=== PATIENT | female | born 1960 | race Caucasian/White ===

== ENCOUNTER → 2017-04-28 | Outpatient (CLI) | payer BC ==
--- NOTE | 2017-04-28 19:32 | CT ---
EXAMINATION TYPE: CT brain wo con DATE OF EXAM: 04/28/2017 COMPARISON: NONE HISTORY: Headaches with Right sided facial numbness and nausea. No known injury CT DLP: 1159 mGycm. Automated exposure control for dose reduction was used. FINDINGS: There is no acute intracranial hemorrhage, mass effect, or midline shift identified. The v entricles and sulci are within normal limits in size. The globes are intact and the visualized sinus es are clear. IMPRESSION: NO ACUTE INTRACRANIAL HEMORRHAGE, MASS EFFECT, OR MIDLINE SHIFT IS SEEN.
== END | disposition home or self-care (01) ==
LOC: RADCTMAIN 18:49
PROVIDERS: ATTEND Family Medicine
DX: G43.909 Migraine, unspecified, not intractable, without status migrainosus (principal)
CPT/HCPCS: 70450

== ENCOUNTER → 2017-06-09 | Outpatient (CLI) | payer BC ==
[2017-06-09 17:43] LABS: ALT 31 U/L (9-52); AST 21 U/L (14-36); Alkaline Phosphatase 78 U/L (38-126); Anion Gap 10 mmol/L; Blood Urea Nitrogen 17 mg/dL (7-17); Calcium 9.5 mg/dL (8.4-10.2); Carbon Dioxide 25 mmol/L (22-30); Chloride 107 mmol/L (98-107); Glucose 112 mg/dL (74-99); Non-African American GFR(MDRD) 53 (>60 ml/min/1.73 sqM); Potassium 3.9 mmol/L (3.5-5.1); Sodium 142 mmol/L (137-145); Total Bilirubin 0.2 mg/dL (0.2-1.3); Total Protein 6.7 g/dL (6.3-8.2)
[2017-06-16 07:31] LABS: Mis test requested (Blood) MuSK Autoantibody
== END | disposition home or self-care (01) ==
LOC: LABWHC1 16:52
PROVIDERS: ATTEND Psychiatry & Neurology Pain Medicine
DX: N18.3 Chronic kidney disease, stage 3 (moderate) (principal); G70.00 Myasthenia gravis without (acute) exacerbation
CPT/HCPCS: 36415; 80053; 83516; 83519

== ENCOUNTER → 2017-06-11 | Outpatient (CLI) | payer BC ==
--- NOTE | 2017-06-11 16:42 | MR ---
MRI CERVICAL SPINE: CLINICAL HISTORY: Myasthenia Gravis and Donte syndrome per order. Headache with neck pain and blurre d and double vision per patient. TECHNIQUE: Multiplanar, multisequence imaging of the cervical spine is performed without IV contrast. COMPARISON: None. FINDINGS: Sagittal images of the cervical spine show the craniocervical junction to appear within nor mal limits. The cervical and upper thoracic spinal cord is normal in course, caliber, and signal. V ertebral alignment is anatomic. There is mild disc space narrowing C6-C7 level with posterior disc he rniation effacing anterior thecal sac on sagittal images. The vertebral body and intravertebral disk heights are otherwise normal. The bone marrow signal intensity is within normal limits. No significa nt spurring is seen. Axial images show the C2-C3 and C3-C4 levels to appear within normal limits. Axial images at C4-C5 level show broad-based central disc protrusion minimally effacing anterior thec al sac, bilateral neural foramina are mildly narrowed. Axial images at C5-C6 level are within normal limits. Axial images at C6-C7 level show broad-based left paracentral disc protrusion effacing anterolateral thecal sac and causing asymmetric moderate to advanced left-sided neural foraminal narrowing. Right-s ided neural foramen is patent near axial image 15. Axial images at C7-T1 level are felt within normal limits. Thyroid gland is not well seen and suspected atrophic in appearance or small in size. Correlate clini liz. Incidental note is made of bovine type arch seen on coronal images IMPRESSION: Prominent disc herniation C6-C7 level effacing anterolateral thecal sac and causes moder ate to severe left-sided neural foraminal narrowing.
--- NOTE | 2017-06-11 16:48 | MR ---
EXAMINATION TYPE: MR angio head wo and neck wo/w con DATE OF EXAM: 06/11/2017 COMPARISON: NONE HISTORY: Mysanthia Gravis and Donte syndrome per order. Migraine headaches and dizziness per patient . TECHNIQUE: Time of flight images focusing on the [place] were performed without contrast.. 2-D and 3-D postprocessing imaging is performed. Multiplanar, multisequence imaging of the neck focus ing on carotid system is performed without and with IV contrast. Patient is injected with 10 cc of [place] davist this for the study. FINDINGS: There is bovine type aortic arch. The right common carotid artery shows normal origin from the right brachiocephalic artery. There is no significant focal stenosis in the right common or inter nal carotid arteries including at level of bifurcation. There is similar finding on the left without significant focal stenosis in the left common or interna l carotid arteries including at bifurcation. There is prominent medial course of distal internal cabrera tid arteries into the posterior hypopharynx just after origin noted. There are patent external carotid arteries without significant stenosis identified bilaterally There is dominant right vertebral artery with some diffuse concentric narrowing of the distal left ve rtebral artery before basilar junction. There is no significant focal stenosis or aneurysmal change i n the posterior circulation. There are persistent origin of posterior communicating arteries bi laterally from distal internal carotid arteries. Images of the anterior circulation show no significant focal stenosis or aneurysmal change. There is small caliber but patent anterior communicating artery identified. IMPRESSION: 1. No significant focal stenosis in common or internal carotid arteries bilaterally. 2. No aneurysmal change at level of [place].
== END | disposition home or self-care (01) ==
LOC: RADMRIMAIN 14:25
PROVIDERS: ATTEND Psychiatry & Neurology Pain Medicine
DX: M50.223 Other cervical disc displacement at C6-C7 level (principal); M99.71 Connective tissue and disc stenosis of intervertebral foramina of cervical region; G90.2 Horner's syndrome; G70.00 Myasthenia gravis without (acute) exacerbation; Z88.0 Allergy status to penicillin; Z88.2 Allergy status to sulfonamides
CPT/HCPCS: 70544; 70549; 72141; A9581

== ENCOUNTER → 2017-06-16 | Outpatient (CLI) | payer BC ==
[2017-06-16 16:49] LABS: Blood Urea Nitrogen 14 mg/dL (7-17); Non-African American GFR(MDRD) 57 (>60 ml/min/1.73 sqM)
--- NOTE | 2017-06-16 17:19 | CT ---
EXAMINATION TYPE: CT chest w con DATE OF EXAM: 06/16/2017 COMPARISON: NONE HISTORY: NAIK, dizziness, and neck pain. CT DLP: 836 mGycm Automated exposure control for dose reduction was used. CONTRAST: CT scan of the chest is performed with IV Contrast, patient injected with 80 mL of Visipaque 320. FINDINGS: The lungs are clear of consolidation. There is no sign of a pulmonary mass. There is no mediastinal a denopathy. There are no hilar masses. Heart size is normal. There is no pericardial effusion. There i s no pleural effusion. There is some decreased density in the liver suggestive of fatty infiltration. Thoracic aorta is intact. There is no evidence of aneurysm or dissection. There is spurring in the th oracic spine. IMPRESSION: There is probably some fatty infiltration of the liver. Negative CT scan of the chest. S pondylotic changes noted in the thoracic spine.
== END | disposition home or self-care (01) ==
LOC: RADCTMAIN 15:58
PROVIDERS: ATTEND Psychiatry & Neurology Neurology
DX: G90.2 Horner's syndrome (principal); G70.00 Myasthenia gravis without (acute) exacerbation; M54.2 Cervicalgia; Z88.0 Allergy status to penicillin; Z88.2 Allergy status to sulfonamides
CPT/HCPCS: 82565; 84520; 71260; 36415; Q9967

== ENCOUNTER 2018-02-24 12:45 | Observation (INO) | payer BC ==
--- NOTE | 2018-02-24 13:33 | ED ---
General Adult HPI - General Chief complaint: Shortness of Breath Stated complaint: SOB/Leg Pain Time Seen by Provider: 02/24/18 13:25 Source: patient, RN notes reviewed Mode of arrival: ambulatory Limitations: no limitations - History of Present Illness Initial comments: Patient is a pleasant 57-year-old female presenting to the emergency Department with dyspnea. Symptoms have progressed over the past couple of days. Patient also has pressure in her chest that is moderate. Symptoms do worsen with exertion. Patient has noticed some discomfort and swelling of her right leg. Patient is finishing a steroid taper for myasthenia gravis. - Related Data Home Medications Medication Instructions Recorded Confirmed Allopurinol [Zyloprim] 100 mg PO DAILY 09/28/15 02/24/18 Aspirin 81 mg PO DAILY 09/28/15 02/24/18 Insulin Glargine [Lantus] See Protocol SQ HS 09/28/15 02/24/18 Lisinopril [Prinivil] 10 mg PO DAILY 09/28/15 02/24/18 Omeprazole [PriLOSEC] 20 mg PO AC-BID 09/28/15 02/24/18 Topiramate [Topamax] 50 mg PO DAILY 09/28/15 02/24/18 metFORMIN HCL 1,000 mg PO BID 09/28/15 02/24/18 Calcium Carbonate [Tums] 500 mg PO DAILY 02/24/18 02/24/18 Carvedilol [Coreg] 3.125 mg PO BID 02/24/18 02/24/18 Cholecalciferol (Vitamin D3) 2,000 unit PO DAILY 02/24/18 02/24/18 [Vitamin D3] Insulin Aspart [NovoLOG Flexpen] See Protocol SQ ACHS 02/24/18 02/24/18 Tart Srivastava Extract 1 tab PO DAILY 02/24/18 02/24/18 Turmeric Root Extract [Turmeric] 500 mg PO DAILY 02/24/18 02/24/18 amLODIPine [Norvasc] 5 mg PO DAILY 02/24/18 02/24/18 methylPREDNISolone [Medrol] See Taper PO DAILY 02/24/18 02/24/18 Allergies Allergy/AdvReac Type Severity Reaction Status Date / Time Penicillins Allergy Unknown Verified 02/24/18 13:05 Sulfa (Sulfonamide Allergy Unknown Verified 02/24/18 13:05 Antibiotics) Review of Systems ROS Statement: Those systems with pertinent positive or pertinent negative responses have been documented in the HPI. ROS Other: All systems not noted in ROS Statement are negative. Constitutional: Denies: fever Eyes: Denies: eye pain ENT: Denies: ear pain Respiratory: Reports: dyspnea. Denies: cough Cardiovascular: Reports: chest pain Endocrine: Reports: fatigue Gastrointestinal: Denies: abdominal pain Genitourinary: Denies: dysuria Musculoskeletal: Denies: arthralgia Skin: Denies: rash Neurological: Denies: weakness Past Medical History Past Medical History: Diabetes Mellitus, Hypertension, Renal Disease Additional Past Medical History / Comment(s): renal failure stage 3 A, gout History of Any Multi-Drug Resistant Organisms: MRSA Date of last positivie culture/infection: 2013 MDRO Source:: eye Past Surgical History: Adenoidectomy, Section, Cholecystectomy, Hysterectomy, Tonsillectomy Past Psychological History: Anxiety Smoking Status: Former smoker Past Alcohol Use History: None Reported Past Drug Use History: None Reported General Exam Limitations: no limitations General appearance: alert Head exam: Present: atraumatic Eye exam: Present: normal appearance, PERRL ENT exam: Present: normal oropharynx Neck exam: Present: normal inspection Respiratory exam: Present: normal lung sounds bilaterally Cardiovascular Exam: Present: regular rate, normal rhythm Expanded Peripheral pulses: 2+: Radial (R), Radial (L), Dorsalis Pedis (R), Dorsalis Pedis (L) GI/Abdominal exam: Present: soft. Absent: tenderness Extremities exam: Present: calf tenderness (Right-sided). Absent: pedal edema Back exam: Present: normal inspection Neurological exam: Present: alert Psychiatric exam: Present: normal affect, normal mood Skin exam: Present: normal color Course Vital Signs 02/24/18 02/24/18 02/24/18 13:02 13:35 13:47 Temperature 98.8 F Pulse Rate 84 87 Respiratory 20 16 18 Rate Blood Pressure 158/92 171/84 O2 Sat by Pulse 98 98 Oximetry EKG Findings - EKG Comments: EKG Findings:: Normal sinus rhythm 86. ID 126. QRS 74. QT 332. QTC 397. Normal axis. Normal QRS. No acute ST change Medical Decision Making - Medical Decision Making Patient reevaluated and resting comfortably in bed. Patient is updated on results and plan. Patient does not appear short of breath at this time and admits her breathing is easier. Case discussed in detail with Dr. Jacques, covering for Dr. Harper, who will admit for Dr. Salazar. He does recommend a single dose of Solu-Medrol to see if further improved her symptoms. - Lab Data Result diagrams: 02/24/18 13:24 02/24/18 13:24 Lab Results 02/24/18 02/24/18 02/24/18 Range/Units 13:24 13:24 13:24 WBC 15.3 H (3.8-10.6) k/uL RBC 5.24 (3.80-5.40) m/uL Hgb 15.5 (11.4-16.0) gm/dL Hct 46.9 H (34.0-46.0) % MCV 89.6 (80.0-100.0) fL MCH 29.5 (25.0-35.0) pg MCHC 33.0 (31.0-37.0) g/dL RDW 13.5 (11.5-15.5) % Plt Count 191 (150-450) k/uL Neutrophils % 83 % Lymphocytes % 10 % Monocytes % 6 % Eosinophils % 0 % Basophils % 1 % Neutrophils # 12.7 H (1.3-7.7) k/uL Lymphocytes # 1.5 (1.0-4.8) k/uL Monocytes # 0.9 (0-1.0) k/uL Eosinophils # 0.0 (0-0.7) k/uL Basophils # 0.1 (0-0.2) k/uL PT (9.0-12.0) sec INR (<1.2) APTT (22.0-30.0) sec D-Dimer (<0.60) mg/L FEU Sample Site ABG pH (7.35-7.45) ABG pCO2 (35-45) mmHg ABG pO2 (83-108) mmHg ABG HCO3 (21-25) mmol/L ABG Total CO2 (19-24) mmol/L ABG O2 Saturation (94-97) % ABG Base Excess mmol/L Nilson Test FiO2 % Sodium 138 (137-145) mmol/L Potassium 3.9 (3.5-5.1) mmol/L Chloride 99 (98-107) mmol/L Carbon Dioxide 30 (22-30) mmol/L Anion Gap 9 mmol/L BUN 26 H (7-17) mg/dL Creatinine 1.00 (0.52-1.04) mg/dL Est GFR (CKD-EPI)AfAm 73 (>60 ml/min/1.73 sqM) Est GFR (CKD-EPI)NonAf 63 (>60 ml/min/1.73 sqM) Glucose 169 H (74-99) mg/dL Calcium 9.6 (8.4-10.2) mg/dL Total Bilirubin 0.4 (0.2-1.3) mg/dL AST 16 (14-36) U/L ALT 43 (9-52) U/L Alkaline Phosphatase 73 (38-126) U/L Total Creatine Kinase <20 L (30-135) U/L CK-MB (CK-2) 0.9 (0.0-2.4) ng/mL CK-MB (CK-2) Rel Index Troponin I <0.012 (0.000-0.034) ng/mL NT-Pro-B Natriuret Pep pg/mL Total Protein 6.0 L (6.3-8.2) g/dL Albumin 3.8 (3.5-5.0) g/dL 02/24/18 02/24/18 02/24/18 Range/Units 13:24 13:24 13:40 WBC (3.8-10.6) k/uL RBC (3.80-5.40) m/uL Hgb (11.4-16.0) gm/dL Hct (34.0-46.0) % MCV (80.0-100.0) fL MCH (25.0-35.0) pg MCHC (31.0-37.0) g/dL RDW (11.5-15.5) % Plt Count (150-450) k/uL Neutrophils % % Lymphocytes % % Monocytes % % Eosinophils % % Basophils % % Neutrophils # (1.3-7.7) k/uL Lymphocytes # (1.0-4.8) k/uL Monocytes # (0-1.0) k/uL Eosinophils # (0-0.7) k/uL Basophils # (0-0.2) k/uL PT 9.7 (9.0-12.0) sec INR 1.0 (<1.2) APTT 19.3 L (22.0-30.0) sec D-Dimer 0.32 (<0.60) mg/L FEU Sample Site Left Radial ABG pH 7.51 H (7.35-7.45) ABG pCO2 35 (35-45) mmHg ABG pO2 83 (83-108) mmHg ABG HCO3 28 H (21-25) mmol/L ABG Total CO2 29 H (19-24) mmol/L ABG O2 Saturation 97.8 H (94-97) % ABG Base Excess 4.9 mmol/L Nilson Test Yes FiO2 21 % Sodium (137-145) mmol/L Potassium (3.5-5.1) mmol/L Chloride (98-107) mmol/L Carbon Dioxide (22-30) mmol/L Anion Gap mmol/L BUN (7-17) mg/dL Creatinine (0.52-1.04) mg/dL Est GFR (CKD-EPI)AfAm (>60 ml/min/1.73 sqM) Est GFR (CKD-EPI)NonAf (>60 ml/min/1.73 sqM) Glucose (74-99) mg/dL Calcium (8.4-10.2) mg/dL Total Bilirubin (0.2-1.3) mg/dL AST (14-36) U/L ALT (9-52) U/L Alkaline Phosphatase (38-126) U/L Total Creatine Kinase (30-135) U/L CK-MB (CK-2) (0.0-2.4) ng/mL CK-MB (CK-2) Rel Index Troponin I (0.000-0.034) ng/mL NT-Pro-B Natriuret Pep 71 pg/mL Total Protein (6.3-8.2) g/dL Albumin (3.5-5.0) g/dL - Radiology Data Radiology results: report reviewed (Ultrasound right leg negative for DVT.), image reviewed (Chest x-ray shows no acute process.) Disposition Clinical Impression: Dyspnea, Chest pain Disposition: ADMITTED IP TO THIS HOSP Is patient prescribed a controlled substance at d/c from ED?: No Referrals: Harman Salazar MD [Primary Care Provider] - 1-2 days Decision Time: 15:31
[2018-02-24 13:49] LABS: ABG Base Excess 4.9 mmol/L; ABG HCO3 28 mmol/L (21-25); ABG Oxygen Saturation 97.8 % (94-97); ABG PCO2 35 mmHg (35-45); ABG PH 7.51 (7.35-7.45); ABG PO2 83 mmHg (83-108); ABG TCO2 29 mmol/L (19-24)
[2018-02-24 13:56] LABS: Basophils # (A) 0.1 k/uL (0-0.2); Basophils % (A) 1 %; Eosinophils % (A) 0 %; HCT 46.9 % (34.0-46.0); HGB 15.5 gm/dL (11.4-16.0); Lymphocytes # (A) 1.5 k/uL (1.0-4.8); Lymphocytes % (A) 10 %; MCH 29.5 pg (25.0-35.0); MCV 89.6 fL (80.0-100.0); Mean Platelet Volume 7.5; Monocytes # (A) 0.9 k/uL (0-1.0); Monocytes % (A) 6 %; Neutrophils # (A) 12.7 k/uL (1.3-7.7); Neutrophils % (A) 83 %; Platelet Count 191 k/uL (150-450); RBC 5.24 m/uL (3.80-5.40); RDW 13.5 % (11.5-15.5); WBC 15.3 k/uL (3.8-10.6)
[2018-02-24 14:04] LABS: Albumin 3.8 g/dL (3.5-5.0); Calcium 9.6 mg/dL (8.4-10.2); Potassium 3.9 mmol/L (3.5-5.1); Total Bilirubin 0.4 mg/dL (0.2-1.3)
[2018-02-24 14:11] LABS: D-Dimer 0.32 mg/L FEU (<0.60); Prothrombin Time 9.7 sec (9.0-12.0)
--- NOTE | 2018-02-24 14:28 | XR ---
EXAMINATION TYPE: XR chest 2V DATE OF EXAM: 02/24/2018 COMPARISON: 09/28/2015 INDICATION: Difficulty breathing short of breath TECHNIQUE: Frontal and lateral views of the chest are obtained. FINDINGS: The heart size is normal. The pulmonary vasculature is normal. The lungs are clear. IMPRESSION: 1. No acute pulmonary process.
[2018-02-24 14:30] LABS: Creatine Kinase <20 U/L (30-135)
[2018-02-24 14:33] LABS: Partial Thromboplastin Time 19.3 sec (22.0-30.0)
[2018-02-24 14:41] LABS: Creatine Kinase MB 0.9 ng/mL (0.0-2.4); Troponin I <0.012 ng/mL (0.000-0.034)
--- NOTE | 2018-02-24 15:09 | US ---
EXAMINATION TYPE: US venous doppler duplex LE RT DATE OF EXAM: 02/24/2018 1:31 PM COMPARISON: NONE CLINICAL HISTORY: Pain in right leg 3 days. SIDE PERFORMED: Right TECHNIQUE: The lower extremity deep venous system is examined utilizing real time linear array sonog jyoti with graded compression, doppler sonography and color-flow sonography. VESSELS IMAGED: External Iliac Vein (EIV) Common Femoral Vein Deep Femoral Vein Greater Saphenous Vein * Femoral Vein Popliteal Vein Small Saphenous Vein * Proximal Calf Veins (* superficial vessels) Right Leg: Negative for DVT IMPRESSION: 1. Right lower extremity ultrasound negative for deep venous thrombosis.
[2018-02-24] MEDS ORDERED: ACETAMINOPHEN TAB 500 MG TAB PO STA (15:25)
[2018-02-24] MEDS ORDERED: methylPREDNISolone SOD SUCCI 125 MG/2 ML VIAL IV STA (15:29)
[2018-02-24] MEDS ORDERED: NITROGLYCERIN SL TABS 0.4 MG TAB SUBLINGUAL PRN (15:31)
[2018-02-24] MEDS ORDERED: ASPIRIN 81 MG PO STA (15:31)
[2018-02-24 18:59] LABS: Glucose,Whole Blood 387 mg/dL (75-99)
[2018-02-24 19:32] LABS: Creatine Kinase <20 U/L (30-135)
[2018-02-24] MEDS: INSULIN ASPART 100 UNIT/ML 1 ML 10 ML VIAL SQ SCH ×2 (19:44→19:46)
[2018-02-24 19:45] LABS: Creatine Kinase MB 0.7 ng/mL (0.0-2.4); Troponin I <0.012 ng/mL (0.000-0.034)
[2018-02-24] MEDS: amLODIPine 5 MG TAB PO SCH (19:47)
[2018-02-24] MEDS: CHOLECALCIFEROL 1,000 UNIT TAB PO SCH (19:47)
[2018-02-24] MEDS: PANTOPRAZOLE 40 MG TABLET PO SCH (19:47)
[2018-02-24] MEDS: ALLOPURINOL 100 MG TAB PO SCH (19:47)
[2018-02-24] MEDS ORDERED: LISINOPRIL 10 MG TAB PO ONE (20:00)
[2018-02-24] MEDS ORDERED: PANTOPRAZOLE 40 MG TABLET PO ONE (20:00)
[2018-02-24] MEDS ORDERED: TOPIRAMATE 25 MG TAB PO ONE (20:00)
[2018-02-24] MEDS: CARVEDILOL 3.125 MG TAB PO SCH (20:00)
[2018-02-24] MEDS ORDERED: amLODIPine 5 MG TAB PO ONE (20:00)
[2018-02-24] MEDS ORDERED: CALCIUM CARBONATE 500 MG CHEWABLE PO ONE (20:00)
[2018-02-24] MEDS ORDERED: ALLOPURINOL 100 MG TAB PO ONE (20:00)
[2018-02-24] MEDS ORDERED: CHOLECALCIFEROL 1,000 UNIT TAB PO ONE (20:00)
[2018-02-24] MEDS: NITROGLYCERIN OINT 1 INCH/GM PACKET TOPICAL SCH ×3 (20:00→23:09)
[2018-02-24] MEDS: metFORMIN 500 MG TAB PO SCH (20:22)
[2018-02-24] MEDS: SYMBICORT 160-4.5 MCG INHALER INHALATION SCH (20:51)
[2018-02-24] MEDS ORDERED: INSULIN DETEMIR 100 UNIT/ML 10 ML VIAL SQ SCH (21:00)
[2018-02-24] MEDS: ACETAMINOPHEN TAB 500 MG TAB PO PRN (21:16)
--- NOTE | 2018-02-24 22:06 | P.HPIM ---
History of Present Illness H&P Date: 02/24/18 Chief Complaint: Shortness of breath Patient is a 57-year-old female with a known history of hypertension, diabetes type 2, CK D stage III and also history of myasthenia gravis came to ER with complaints of shortness of breath. Patient has been having shortness of breath which is getting worse for the past 2 days. Patient also developed chest pressure today. Midsternal. No radiation. Associated with shortness of breath. No nausea vomiting. No headache or dizziness or lightheadedness. No diaphoresis. Patient denied any abdominal pain. No pleuritic chest pain. Patient also complaining of leg swelling mainly right side and also tenderness over right calf. Patient is currently on tapering dose of steroid in the form of methylprednisolone for myasthenia gravis. Chest x-ray showed no acute process. D-dimer is not elevated. Right lower extremities duplex scan is negative for DVT. EKG showed normal sinus rhythm. Troponin 1 negative Review of Systems Constitutional: Patient denies any fever or chills . No generalized weakness or weight loss. Abdomen: Patient denied nausea vomiting and diarrhea and abdominal pain. Cardiovascular: Shortness of breath and exertional shortness of breath with chest tightness. Respiratory: patient denied any cough is from production. No shortness of breath Neurologic: Patient denied any numbness or tingling headache. Musculoskeletal: Patient denies any complaints of joint swelling or deformity. Skin: Negative Psychiatric: Negative Endocrine: No heat or cold intolerance. No recent weight gain. Genitourinary: No dysuria or hematuria. All other 14 point ROS negative except the above Past Medical History Past Medical History: Diabetes Mellitus, Hypertension, Renal Disease Additional Past Medical History / Comment(s): renal failure stage 3 A, gout History of Any Multi-Drug Resistant Organisms: MRSA Date of last positivie culture/infection: 2013 MDRO Source:: eye Past Surgical History: Adenoidectomy, Section, Cholecystectomy, Hysterectomy, Tonsillectomy Past Psychological History: Anxiety Smoking Status: Former smoker Past Alcohol Use History: None Reported Past Drug Use History: None Reported - Past Family History Father Family Medical History: Cancer, COPD Additional Family Medical History / Comment(s): ashd, amputations d/t vascular dz, skin cancer, gout, Mother Family Medical History: Asthma, Chest Pain / Angina, Congestive Heart Failure ( CHF), Dementia, Diabetes Mellitus, Hypertension, Osteoarthritis (OA) Additional Family Medical History / Comment(s): glaucoma,gout, neuropathy Medications and Allergies Home Medications Medication Instructions Recorded Confirmed Type Allopurinol [Zyloprim] 100 mg PO DAILY 09/28/15 02/24/18 History Aspirin 81 mg PO DAILY 09/28/15 02/24/18 History Insulin Glargine [Lantus] See Protocol SQ HS 09/28/15 02/24/18 History Lisinopril [Prinivil] 10 mg PO DAILY 09/28/15 02/24/18 History Omeprazole [PriLOSEC] 20 mg PO AC-BID 09/28/15 02/24/18 History Topiramate [Topamax] 50 mg PO DAILY 09/28/15 02/24/18 History metFORMIN HCL 1,000 mg PO BID 09/28/15 02/24/18 History Calcium Carbonate [Tums] 500 mg PO DAILY 02/24/18 02/24/18 History Carvedilol [Coreg] 3.125 mg PO BID 02/24/18 02/24/18 History Cholecalciferol (Vitamin D3) 2,000 unit PO DAILY 02/24/18 02/24/18 History [Vitamin D3] Insulin Aspart [NovoLOG Flexpen] See Protocol SQ ACHS 02/24/18 02/24/18 History Tart Srivastava Extract 1 tab PO DAILY 02/24/18 02/24/18 History Turmeric Root Extract [Turmeric] 500 mg PO DAILY 02/24/18 02/24/18 History amLODIPine [Norvasc] 5 mg PO DAILY 02/24/18 02/24/18 History methylPREDNISolone [Medrol] See Taper PO DAILY 02/24/18 02/24/18 History Allergies Allergy/AdvReac Type Severity Reaction Status Date / Time aspartame Allergy Unknown Verified 02/24/18 21:42 [From Nutrasweet Aspartame] Penicillins Allergy Unknown Verified 02/24/18 21:41 Sulfa (Sulfonamide Allergy Unknown Verified 02/24/18 21:41 Antibiotics) Physical Exam Vitals: Vital Signs Temp Pulse Resp BP Pulse Ox 02/24/18 16:32 96 18 139/81 97 02/24/18 15:46 93 18 147/80 99 02/24/18 13:47 87 18 171/84 98 02/24/18 13:35 16 02/24/18 13:02 98.8 F 84 20 158/92 98 Intake and Output 02/24/18 02/24/18 02/24/18 06:59 14:59 22:59 Other: Weight 105.687 kg PHYSICAL EXAMINATION: Patient is lying in the bed comfortably, no acute distress, awake alert and oriented.. HEENT: Normocephalic. Neck is supple. Pupils reactive. Nostrils clear. Oral cavity is moist. Ears reveal no drainage. Neck reveals no JVD, carotid bruits, or thyromegaly. CHEST EXAMINATION: Trachea is central. Symmetrical expansion. Bibasilar diminished air entry. Lung solitario clear to auscultation and percussion. CARDIAC: Normal S1, S2 with no gallops. No murmurs ABDOMEN: Soft. Bowel sounds normal. No organomegaly. No abdominal bruits. Extremities: reveal no edema. Right Tenderness. No clubbing or cyanosis Neurologically awake, alert, oriented x3 with well-coordinated movements. No focal deficits noted Skin: No rash or skin lesions. Psychiatric: Coperative. Nonsuicidal Musculoskeletal: No joint swelling or deformity. Normal range of motion. Results CBC & Chem 7: 02/24/18 13:24 02/24/18 13:24 Labs: Abnormal Lab Results - Last 24 Hours (Table) 02/24/18 02/24/18 02/24/18 Range/Units 13:24 13:24 13:24 WBC 15.3 H (3.8-10.6) k/uL Hct 46.9 H (34.0-46.0) % Neutrophils # 12.7 H (1.3-7.7) k/uL APTT (22.0-30.0) sec ABG pH (7.35-7.45) ABG HCO3 (21-25) mmol/L ABG Total CO2 (19-24) mmol/L ABG O2 Saturation (94-97) % BUN 26 H (7-17) mg/dL Glucose 169 H (74-99) mg/dL Total Creatine Kinase <20 L (30-135) U/L Total Protein 6.0 L (6.3-8.2) g/dL 02/24/18 02/24/18 Range/Units 13:24 13:40 WBC (3.8-10.6) k/uL Hct (34.0-46.0) % Neutrophils # (1.3-7.7) k/uL APTT 19.3 L (22.0-30.0) sec ABG pH 7.51 H (7.35-7.45) ABG HCO3 28 H (21-25) mmol/L ABG Total CO2 29 H (19-24) mmol/L ABG O2 Saturation 97.8 H (94-97) % BUN (7-17) mg/dL Glucose (74-99) mg/dL Total Creatine Kinase (30-135) U/L Total Protein (6.3-8.2) g/dL Thrombosis Risk Factor Assmnt - DVT/VTE Prophylaxis DVT/VTE Prophylaxis: Pharmacologic Prophylaxis ordered Assessment and Plan Assessment: Atypical chest pain. Rule out acute coronary syndrome. Myasthenia gravis currently on tapering steroid dose Hypertension Diabetes type 2 Morbid obesity BMI 42.6 Anxiety Previous history of smoking DVT prophylaxis Plan: Patient will be continued on telemetry monitoring. Serial EKG and troponins. We consider the home medications including PPI and follow up closely. Cardiology was consulted for further evaluation. Time with Patient: Greater than 30
[2018-02-24 22:47] LABS: Appearance,Urine Clear (Clear); Bilirubin,Urine Negative (Negative); Blood,Urine Negative (Negative); Color,Urine Light Yellow; Glucose,Urine (UA) 4+ (Negative); Ketones,Urine Negative (Negative); Leukocyte Esterase,Urine Negative (Negative); Nitrite,Urine Negative (Negative); PH, Urine 5.5 (5.0-8.0); Protein,Urine Negative (Negative); Specific Gravity,Urine 1.025 (1.001-1.035); Urobilinogen,Urine <2.0 mg/dL (<2.0)
[2018-02-24] MEDS: HEPARIN SODIUM,PORCINE 5,000 UNIT/ML 1 ML VIAL SQ SCH (23:11)
[2018-02-25] MEDS ORDERED: HEPARIN SODIUM,PORCINE 5,000 UNIT/ML 1 ML VIAL SQ SCH
[2018-02-25 03:02] LABS: Cholesterol 164 mg/dL (<200); HDL Cholesterol 81 mg/dL (40-60); LDL Cholesterol,Calculated 46 mg/dL (0-99); Triglycerides 185 mg/dL (<150)
[2018-02-25 03:22] LABS: Creatine Kinase <20 U/L (30-135)
[2018-02-25 03:36] LABS: Creatine Kinase MB 0.7 ng/mL (0.0-2.4); Troponin I <0.012 ng/mL (0.000-0.034)
[2018-02-25] MEDS: ACETAMINOPHEN TAB 500 MG TAB PO PRN ×2 (04:15→11:11)
[2018-02-25 06:59] LABS: Glucose,Whole Blood 238 mg/dL (75-99)
[2018-02-25] MEDS: SYMBICORT 160-4.5 MCG INHALER INHALATION SCH (07:12)
[2018-02-25] MEDS ORDERED: NON-FORMULARY DRUG (Turmeric Root Extract [Turmeric] 500 MG) PO SCH (09:00)
[2018-02-25] MEDS ORDERED: TART CHERRY EXTRACT PO SCH (09:00)
[2018-02-25] MEDS ORDERED: LISINOPRIL 10 MG TAB PO SCH (09:00)
[2018-02-25] MEDS ORDERED: methylPREDNISolone 4 MG TAB PO SCH (09:00)
[2018-02-25] MEDS ORDERED: TOPIRAMATE 25 MG TAB PO SCH (09:00)
[2018-02-25] MEDS ORDERED: ASPIRIN 325 MG TAB PO SCH (09:00)
[2018-02-25] MEDS ORDERED: CALCIUM CARBONATE 500 MG CHEWABLE PO SCH (09:00)
[2018-02-25] MEDS ORDERED: ASPIRIN 81 MG PO SCH (09:00)
[2018-02-25] MEDS: HEPARIN SODIUM,PORCINE 5,000 UNIT/ML 1 ML VIAL SQ SCH ×2 (10:08→17:45)
--- NOTE | 2018-02-25 10:13 | P.CRDCN ---
History of Present Illness History of present illness: Mrs. Rey is a pleasant 57-year-old female past medical history significant for myasthenia gravis, diabetes mellitus, hypertension, chronic kidney disease and anxiety. She denies history of coronary artery disease and has never seen a administrative assistant for any reason. We have been asked to see her in consultation for chest pain. She states over the last 4 days she has noticed an increase in shortness of breath with exertion and tight sensation in her anterior mid-sternal chest. The symptoms have been getting progressively worse. She also complains of shortness of breath at rest. She also has had some swelling of the right lower extremity. Doppler performed in ED is negative for DVT. She is just finishing a steroid taper for an exacerbation of her myasthenia gravis for which she has been on for the previous 1-month. EKG reveals sinus mechanism with no acute ST or T-wave abnormalities. Chest xray is negative for an acute cardiopulmonary process. Laboratory data reviewed, WBC 15.3, hemoglobin 15.5, platelets 191, d-dimer 0.32 , sodium 138, potassium 3.9, creatinine 1.0, cardiac enzymes negative x3, proBNP 71, LDL 46 HDL 81. Current cardiac medications include amlodipine 5 mg daily, lisinopril 10 mg daily, Coreg 3.125 mg twice a day and aspirin 81 mg daily. She also takes allopurinol, vitamin D, insulin, Lantus, Prilosec, Topamax, metformin and prednisone. She underwent cardiac catheterization in 2009 which revealed normal coronary arteries. Review of Systems At the time of my exam: CONSTITUTIONAL: Denies fever. Denies chills. EYES: Denies blurred vision. Denies vision changes. Denies eye pain. EARS, NOSE, MOUTH & THROAT: Denies headache. Denies sore throat. Denies ear pain. CARDIOVASCULAR: Denies chest pain. Complains of shortness of breath. Denies orthopnea. Denies PND. Denies palpitations. RESPIRATORY: Denies cough. GASTROINTESTINAL: Denies abdominal pain. Denies diarrhea. Denies constipation. Denies nausea. Denies vomiting. MUSCULOSKELETAL: Denies myalgias. INTEGUMENTARY: Denies pruitis. Denies rash. NEUROLOGIC: Denies numbness. Denies tingling. Denies weakness. PSYCHIATRIC: Denies anxiety. Denies depression. ENDOCRINE: Denies fatigue. Denies weight change. Denies polydipsia. Denies polyurina. GENITOURINARY: Denies burning, hematuria or urgency with micturation. HEMATOLOGIC: Denies history of anemia. Denies bleeding. Past Medical History Past Medical History: Diabetes Mellitus, Hypertension, Renal Disease Additional Past Medical History / Comment(s): renal failure stage 3 A, gout History of Any Multi-Drug Resistant Organisms: MRSA Date of last positivie culture/infection: 2013 MDRO Source:: eye Past Surgical History: Adenoidectomy, Section, Cholecystectomy, Hysterectomy, Tonsillectomy Additional Past Surgical History / Comment(s): laser eye sx for glaucoma. at times gets dizzy when up. Past Anesthesia/Blood Transfusion Reactions: Motion Sickness, Postoperative Nausea & Vomiting (PONV) Additional Past Anesthesia/Blood Transfusion Reaction / Comment(s): clausterphobia Past Psychological History: Anxiety Smoking Status: Former smoker Past Alcohol Use History: None Reported Past Drug Use History: None Reported - Past Family History Father Family Medical History: Cancer, COPD Additional Family Medical History / Comment(s): ashd, amputations d/t vascular dz, skin cancer, gout, Mother Family Medical History: Asthma, Chest Pain / Angina, Congestive Heart Failure ( CHF), Dementia, Diabetes Mellitus, Hypertension, Osteoarthritis (OA) Additional Family Medical History / Comment(s): glaucoma,gout, neuropathy Medications and Allergies Home Medications Medication Instructions Recorded Confirmed Type Allopurinol [Zyloprim] 100 mg PO DAILY 09/28/15 02/24/18 History Aspirin 81 mg PO DAILY 09/28/15 02/24/18 History Insulin Glargine [Lantus] See Protocol SQ HS 09/28/15 02/24/18 History Lisinopril [Prinivil] 10 mg PO DAILY 09/28/15 02/24/18 History Omeprazole [PriLOSEC] 20 mg PO AC-BID 09/28/15 02/24/18 History Topiramate [Topamax] 50 mg PO DAILY 09/28/15 02/24/18 History metFORMIN HCL 1,000 mg PO BID 09/28/15 02/24/18 History Calcium Carbonate [Tums] 500 mg PO DAILY 02/24/18 02/24/18 History Carvedilol [Coreg] 3.125 mg PO BID 02/24/18 02/24/18 History Cholecalciferol (Vitamin D3) 2,000 unit PO DAILY 02/24/18 02/24/18 History [Vitamin D3] Insulin Aspart [NovoLOG Flexpen] See Protocol SQ ACHS 02/24/18 02/24/18 History Tart Srivastava Extract 1 tab PO DAILY 02/24/18 02/24/18 History Turmeric Root Extract [Turmeric] 500 mg PO DAILY 02/24/18 02/24/18 History amLODIPine [Norvasc] 5 mg PO DAILY 02/24/18 02/24/18 History methylPREDNISolone [Medrol] See Taper PO DAILY 02/24/18 02/24/18 History Allergies Allergy/AdvReac Type Severity Reaction Status Date / Time aspartame Allergy Unknown Verified 02/24/18 21:42 [From Nutrasweet Aspartame] Penicillins Allergy Unknown Verified 02/24/18 21:41 Sulfa (Sulfonamide Allergy Unknown Verified 02/24/18 21:41 Antibiotics) Physical Exam Vitals: Vital Signs Temp Pulse Pulse Pulse Resp BP BP 02/25/18 08:00 97.9 F 78 16 126/71 02/25/18 07:45 16 02/25/18 04:00 98.1 F 85 18 135/81 02/25/18 00:00 97.9 F 86 18 145/82 02/24/18 21:27 18 02/24/18 20:55 98.5 F 91 146/80 02/24/18 20:16 88 18 136/80 02/24/18 19:20 87 18 140/79 02/24/18 18:48 95 18 137/76 02/24/18 16:32 96 18 139/81 02/24/18 15:46 93 18 147/80 02/24/18 13:47 87 18 171/84 02/24/18 13:35 16 02/24/18 13:02 98.8 F 84 20 158/92 Pulse Ox 02/25/18 08:00 97 02/25/18 07:45 02/25/18 04:00 97 02/25/18 00:00 95 02/24/18 21:27 02/24/18 20:55 98 02/24/18 20:16 97 02/24/18 19:20 97 02/24/18 18:48 96 02/24/18 16:32 97 02/24/18 15:46 99 02/24/18 13:47 98 02/24/18 13:35 02/24/18 13:02 98 Intake and Output 02/24/18 02/25/18 02/25/18 22:59 06:59 14:59 Output Total 150 Balance -150 Output: Urine 150 Other: Voiding Method Toilet Toilet Toilet # Voids 1 Weight 106.3 kg Blood pressure 126/71 heart rate 78 afebrile maintaining oxygen saturation on room air GENERAL: This is a 57-year-old female in no apparent distress at the time of my examination. HEENT: Head is atraumatic, normocephalic. Pupils are equal, round. Sclerae anicteric. Conjunctivae are clear. Mucous membranes of the mouth are moist. Neck is supple. There is no jugular venous distention. No carotid bruit is heard. LUNGS: Clear to auscultation no wheezes, rales or rhonchi. No chest wall tenderness is noted on palpation or with deep breathing. HEART: Regular rate and rhythm without murmurs, rubs or gallops. S1 and S2 heard. ABDOMEN: Soft, nontender. Bowel sounds are heard. No organomegaly noted. EXTREMITIES: Right lower extremity 1+ pitting edema, trace edema to the left lower extremity noted. No calf tenderness noted. VASCULAR: Radial and dorsalis pedis pulses palpated, no evidence of clubbing. NEUROLOGIC: Patient is awake, alert and oriented x3. Results 02/24/18 13:24 02/24/18 13:24 Cardiac Enzymes 02/24/18 02/24/18 02/24/18 Range/Units 13:24 13:24 19:01 AST 16 (14-36) U/L CK-MB (CK-2) 0.9 0.7 (0.0-2.4) ng/mL Troponin I <0.012 <0.012 (0.000-0.034) ng/mL 02/25/18 Range/Units 02:17 AST (14-36) U/L CK-MB (CK-2) 0.7 (0.0-2.4) ng/mL Troponin I <0.012 (0.000-0.034) ng/mL Coagulation 02/24/18 Range/Units 13:24 PT 9.7 (9.0-12.0) sec APTT 19.3 L (22.0-30.0) sec Lipids 02/25/18 Range/Units 02:17 Triglycerides 185 H (<150) mg/dL Cholesterol 164 (<200) mg/dL HDL Cholesterol 81 H (40-60) mg/dL CBC 02/24/18 Range/Units 13:24 WBC 15.3 H (3.8-10.6) k/uL RBC 5.24 (3.80-5.40) m/uL Hgb 15.5 (11.4-16.0) gm/dL Hct 46.9 H (34.0-46.0) % Plt Count 191 (150-450) k/uL Comprehensive Metabolic Panel 02/24/18 Range/Units 13:24 Sodium 138 (137-145) mmol/L Potassium 3.9 (3.5-5.1) mmol/L Chloride 99 (98-107) mmol/L Carbon Dioxide 30 (22-30) mmol/L BUN 26 H (7-17) mg/dL Creatinine 1.00 (0.52-1.04) mg/dL Glucose 169 H (74-99) mg/dL Calcium 9.6 (8.4-10.2) mg/dL AST 16 (14-36) U/L ALT 43 (9-52) U/L Alkaline Phosphatase 73 (38-126) U/L Total Protein 6.0 L (6.3-8.2) g/dL Albumin 3.8 (3.5-5.0) g/dL Current Medications Generic Name Dose Route Start Last Admin Trade Name Freq PRN Reason Stop Dose Admin Acetaminophen 1,000 mg 02/24/18 20:19 02/25/18 04:15 Tylenol Tab PO 1,000 mg Q6HR PRN Administration Fever and/ or Pain Allopurinol 100 mg 02/25/18 09:00 Zyloprim PO DAILY [facility] Amlodipine Besylate 5 mg 02/25/18 09:00 Norvasc PO DAILY [facility] Aspirin 81 mg 02/25/18 09:00 Aspirin PO DAILY [facility] Budesonide/Formoterol Fumarate 2 puff 02/24/18 20:00 02/25/18 07:12 Symbicort 160-4.5 Mcg Inhaler INHALATION 2 puff RT-BID [place] Administration Calcium Carbonate/Glycine 500 mg 02/25/18 09:00 Tums PO DAILY [facility] Carvedilol 3.125 mg 02/24/18 21:00 02/24/18 20:00 Coreg PO 3.125 mg BID [facility] Administration Cholecalciferol 2,000 unit 02/25/18 09:00 Vitamin D3 PO DAILY [facility] Heparin Sodium (Porcine) 5,000 unit 02/25/18 00:00 02/24/18 23:11 Heparin SQ 5,000 unit Q8HR [place] Administration Insulin Aspart 0 unit 02/24/18 21:00 02/24/18 19:44 Novolog SQ 11 unit ACHS [facility] Administration Protocol Insulin Aspart 5 unit 02/25/18 07:30 Novolog SQ AC-TID [facility] Insulin Detemir 20 unit 02/24/18 21:00 02/24/18 21:17 Levemir SQ 20 unit HS [facility] Administration Lisinopril 10 mg 02/25/18 09:00 Zestril PO DAILY [facility] Metformin HCl 1,000 mg 02/24/18 19:30 02/24/18 20:22 Glucophage PO 1,000 mg BID-W/MEALS [facility] Administration Nitroglycerin 1 inch 02/24/18 18:00 02/24/18 23:09 Nitro-Bid Oint TOPICAL Not Given Q6HR [facility] Nitroglycerin 0.4 mg 02/24/18 15:31 Nitrostat SUBLINGUAL Q5M PRN Chest Pain Pantoprazole Sodium 40 mg 02/25/18 07:30 Protonix PO AC-BRKFST [facility] Topiramate 50 mg 02/25/18 09:00 Topamax PO DAILY [facility] Intake and Output 02/24/18 02/25/18 02/25/18 22:59 06:59 14:59 Output Total 150 Balance -150 Output: Urine 150 Other: Voiding Method Toilet Toilet Toilet # Voids 1 Weight 106.3 kg 02/24/18 13:24 02/24/18 13:24 Assessment and Plan Assessment: ASSESSMENT 1. Chest pain and shortness of breath. An acute coronary event has been ruled out with no EKG evidence of ischemia and negative cardiac enzymes. 2. Myasthenia gravis on steroids for recent exacerbation 3. Hypertension 4. Dyslipidemia 5. Metabolic alkalosis PLAN Obtain 2D echocardiogram and doppler study to assess cardiac structure and function. Resume amlodipine 5 mg, lisinopril 10 mg daily, coreg 3.125 BID and aspirin 81 mg daily. Further evaluation per Pulmonary team. An acute coronary event has been ruled out. Thank you kindly for this consultation. Nurse Practitioner note has been reviewed, I agree with a documented findings and plan of care. Patient was seen and examined.
[2018-02-25] MEDS: INSULIN ASPART 100 UNIT/ML 1 ML 10 ML VIAL SQ SCH ×6 (10:18→17:55)
[2018-02-25] MEDS: PANTOPRAZOLE 40 MG TABLET PO SCH (10:19)
[2018-02-25] MEDS: metFORMIN 500 MG TAB PO SCH ×2 (11:03→17:55)
[2018-02-25] MEDS: amLODIPine 5 MG TAB PO SCH (11:04)
[2018-02-25] MEDS: CARVEDILOL 3.125 MG TAB PO SCH (11:04)
[2018-02-25] MEDS: CHOLECALCIFEROL 1,000 UNIT TAB PO SCH (11:04)
[2018-02-25] MEDS: ALLOPURINOL 100 MG TAB PO SCH (11:04)
--- NOTE | 2018-02-25 11:15 | P.CNPUL ---
History of Present Illness Consult date: 02/25/18 Reason for consult: dyspnea History of present illness: A pleasant 57-year-old morbidly obese female patient with diagnoses of myasthenia gravis coming in for symptoms of shortness of breath and chest discomfort/pressure/pain along with some increased lower extremity edema. The patient describes her symptoms to be going on for the past few days however shortness of breath has started approximately 2 weeks ago. She typically gets short of breath upon having myasthenia gravis exacerbation. She was unable to go on a master Mestinon maintenance due to side effects. Based on that, the patient has been requiring episodic steroid treatments on outpatient basis which has included Medrol tapers and Depo-Medrol shot and this was given to her back Dr. Chavarria on outpatient basis. The last Medrol taper was started approximately 2 weeks ago because of increased shortness of breath. The patient also has episodes of double vision/diplopia which is not present at this point in time. She has no difficulties with swallowing. She has good motor power both in upper and lower extremities and she is able to ambulate. No reported aspiration. The patient has gained significant amount of weight because of systemic steroid use and the patient has valve features obstructive sleep apnea the patient is having snoring, she wakes herself from loud snoring occasionally she wakes up gasping for air. She has excessive fatigue and tiredness during the day. As far as her chest discomfort/pain, this has been noted to be over the anterior midsternal chest area. As part of further investigation, and EKG was done that showed a sinus mechanism without any acute ST segment elevation or depressions. Cardiac enzymes have been negative. ProBNP level is at 71. The patient will be having a echocardiogram today and is also still not out yet. The patient has undergone a previous cardiac catheterization back in 2009 and she was told to have normal coronaries. She is not a smoker for now and she quit smoking more than 25 years ago. 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 I noted some increased lower extremity edema and a Doppler of the lower extremity is was done and there is no evidence of any DVT. She denies having any previous history of DVT or pulmonary embolism. She has diabetes, hypertension and her renal function is been within normal limits. Her d-dimer is at 0.32. The chest x-ray shows no acute cardio pulmonary abnormalities. Her current pulse ox on room air is 97%. Review of Systems CONSTITUTIONAL: Denies fever. Denies chills. Consider amount of weight gain over the years because of use of systemic steroids. EYES: Denies blurred vision. Denies vision changes. Denies eye pain. She has had previous history of diplopia none for now EARS, NOSE, MOUTH & THROAT: Denies headache. Denies sore throat. Denies ear pain. CARDIOVASCULAR: Denies chest pain for now yet she presented with some chest discomfort originally to the hospital.. Complains of shortness of breath. Denies orthopnea. Denies PND. Denies palpitations. RESPIRATORY: Denies cough. GASTROINTESTINAL: Denies abdominal pain. Denies diarrhea. Denies constipation. Denies nausea. Denies vomiting. MUSCULOSKELETAL: Denies myalgias. INTEGUMENTARY: Denies pruitis. Denies rash. NEUROLOGIC: Denies numbness. Denies tingling. Denies weakness. Has history of weakness related to myasthenia gravis PSYCHIATRIC: Denies anxiety. Denies depression. ENDOCRINE: Denies fatigue. Denies weight change. Denies polydipsia. Denies polyurina. GENITOURINARY: Denies burning, hematuria or urgency with micturation. HEMATOLOGIC: Denies history of anemia. Denies bleeding. Past Medical History Past Medical History: Diabetes Mellitus, Hypertension, Renal Disease Additional Past Medical History / Comment(s): Morbid obesity with a BMI of 42.9 , gout, hypertension, diabetes mellitus, myasthenia gravis History of Any Multi-Drug Resistant Organisms: MRSA Date of last positivie culture/infection: 2013 MDRO Source:: eye Past Surgical History: Adenoidectomy, Section, Cholecystectomy, Hysterectomy, Tonsillectomy Additional Past Surgical History / Comment(s): laser eye sx for glaucoma. at times gets dizzy when up. Past Anesthesia/Blood Transfusion Reactions: Motion Sickness, Postoperative Nausea & Vomiting (PONV) Additional Past Anesthesia/Blood Transfusion Reaction / Comment(s): clausterphobia Past Psychological History: Anxiety Smoking Status: Former smoker Past Alcohol Use History: None Reported Past Drug Use History: None Reported - Past Family History Father Family Medical History: Cancer, COPD Additional Family Medical History / Comment(s): ashd, amputations d/t vascular dz, skin cancer, gout, Mother Family Medical History: Asthma, Chest Pain / Angina, Congestive Heart Failure ( CHF), Dementia, Diabetes Mellitus, Hypertension, Osteoarthritis (OA) Additional Family Medical History / Comment(s): glaucoma,gout, neuropathy Medications and Allergies Home Medications Medication Instructions Recorded Confirmed Type Allopurinol [Zyloprim] 100 mg PO DAILY 09/28/15 02/24/18 History Aspirin 81 mg PO DAILY 09/28/15 02/24/18 History Insulin Glargine [Lantus] See Protocol SQ HS 09/28/15 02/24/18 History Lisinopril [Prinivil] 10 mg PO DAILY 09/28/15 02/24/18 History Omeprazole [PriLOSEC] 20 mg PO AC-BID 09/28/15 02/24/18 History Topiramate [Topamax] 50 mg PO DAILY 09/28/15 02/24/18 History metFORMIN HCL 1,000 mg PO BID 09/28/15 02/24/18 History Calcium Carbonate [Tums] 500 mg PO DAILY 02/24/18 02/24/18 History Carvedilol [Coreg] 3.125 mg PO BID 02/24/18 02/24/18 History Cholecalciferol (Vitamin D3) 2,000 unit PO DAILY 02/24/18 02/24/18 History [Vitamin D3] Insulin Aspart [NovoLOG Flexpen] See Protocol SQ ACHS 02/24/18 02/24/18 History Tart Srivastava Extract 1 tab PO DAILY 02/24/18 02/24/18 History Turmeric Root Extract [Turmeric] 500 mg PO DAILY 02/24/18 02/24/18 History amLODIPine [Norvasc] 5 mg PO DAILY 02/24/18 02/24/18 History methylPREDNISolone [Medrol] See Taper PO DAILY 02/24/18 02/24/18 History Allergies Allergy/AdvReac Type Severity Reaction Status Date / Time aspartame Allergy Unknown Verified 02/24/18 21:42 [From Nutrasweet Aspartame] Penicillins Allergy Unknown Verified 02/24/18 21:41 Sulfa (Sulfonamide Allergy Unknown Verified 02/24/18 21:41 Antibiotics) Physical Exam Vitals: Vital Signs Temp Pulse Pulse Pulse Resp BP BP 02/25/18 08:00 97.9 F 78 16 126/71 02/25/18 07:45 16 02/25/18 04:00 98.1 F 85 18 135/81 02/25/18 00:00 97.9 F 86 18 145/82 02/24/18 21:27 18 02/24/18 20:55 98.5 F 91 146/80 02/24/18 20:16 88 18 136/80 02/24/18 19:20 87 18 140/79 02/24/18 18:48 95 18 137/76 02/24/18 16:32 96 18 139/81 02/24/18 15:46 93 18 147/80 02/24/18 13:47 87 18 171/84 02/24/18 13:35 16 02/24/18 13:02 98.8 F 84 20 158/92 Pulse Ox 02/25/18 08:00 97 02/25/18 07:45 02/25/18 04:00 97 02/25/18 00:00 95 02/24/18 21:27 02/24/18 20:55 98 02/24/18 20:16 97 02/24/18 19:20 97 02/24/18 18:48 96 02/24/18 16:32 97 02/24/18 15:46 99 02/24/18 13:47 98 02/24/18 13:35 02/24/18 13:02 98 Intake and Output 02/24/18 02/25/18 02/25/18 22:59 06:59 14:59 Output Total 150 Balance -150 Output: Urine 150 Other: Voiding Method Toilet Toilet Toilet # Voids 1 Weight 106.3 kg Morbidly obese, comfortable nonacute distress, BMI of 42.9 Head exam was generally normal. There was no scleral icterus or corneal arcus. Mucous membranes were moist. Neck is supple and the patient is a Mallampati class IV and there is no goiter or neck masses. Lungs were clear to auscultation and percussion, and with normal diaphragmatic excursion. No wheezes or rales were noted. Cardiac exam revealed the PMI to be normally situated and sized. The rhythm was regular and no extrasystoles were noted during several minutes of auscultation. The first and second heart sounds were normal and physiologic splitting of the second heart sound was noted. There were no murmurs, rubs, clicks, or gallops. Abdomen abdomenAbdominal exam revealed normal bowel sounds. The abdomen was soft , non-tender, and without masses, organomegaly, or appreciable enlargement of the abdominal aorta. Extremities revealed trace +1 pitting edema and there is no cyanosis or clubbing. Neurologically the patient has full range of motion of the extraocular muscles and the patient has equal and symmetrical motor function in all 4 extremities. The patient is also neurologically intact and the patient has been awake and alert 3. Psychiatrically the patient has an appropriate mood, affect, insight. Results - Laboratory Findings CBC and BMP: 02/24/18 13:24 02/24/18 13:24 ABG ABG pH 7.51 (7.35-7.45) H 02/24/18 13:40 ABG pCO2 35 mmHg (35-45) 02/24/18 13:40 ABG pO2 83 mmHg (83-108) 02/24/18 13:40 ABG O2 Saturation 97.8 % (94-97) H 02/24/18 13:40 PT/INR, D-dimer PT 9.7 sec (9.0-12.0) 02/24/18 13:24 INR 1.0 (<1.2) 02/24/18 13:24 D-Dimer 0.32 mg/L FEU (<0.60) 02/24/18 13:24 Abnormal lab findings: Abnormal Labs 02/24/18 02/24/18 02/24/18 13:24 13:24 13:24 WBC 15.3 H Hct 46.9 H Neutrophils # 12.7 H APTT ABG pH ABG HCO3 ABG Total CO2 ABG O2 Saturation BUN 26 H Glucose 169 H POC Glucose (mg/dL) Total Creatine Kinase <20 L Total Protein 6.0 L Triglycerides HDL Cholesterol Urine Glucose (UA) 02/24/18 02/24/18 02/24/18 13:24 13:40 18:56 WBC Hct Neutrophils # APTT 19.3 L ABG pH 7.51 H ABG HCO3 28 H ABG Total CO2 29 H ABG O2 Saturation 97.8 H BUN Glucose POC Glucose (mg/dL) 387 H Total Creatine Kinase Total Protein Triglycerides HDL Cholesterol Urine Glucose (UA) 02/24/18 02/24/18 02/25/18 19:01 22:25 02:17 WBC Hct Neutrophils # APTT ABG pH ABG HCO3 ABG Total CO2 ABG O2 Saturation BUN Glucose POC Glucose (mg/dL) Total Creatine Kinase <20 L <20 L Total Protein Triglycerides HDL Cholesterol Urine Glucose (UA) 4+ H 02/25/18 02/25/18 02:17 06:56 WBC Hct Neutrophils # APTT ABG pH ABG HCO3 ABG Total CO2 ABG O2 Saturation BUN Glucose POC Glucose (mg/dL) 238 H Total Creatine Kinase Total Protein Triglycerides 185 H HDL Cholesterol 81 H Urine Glucose (UA) - Diagnostic Findings Chest x-ray: image reviewed Assessment and Plan Plan: 1 shortness of breath, probably no sedation with her morbid obesity and her underlying myasthenia gravis. The patient shortness of breath has been improving with systemic steroids. She is oxygenating within normal limits and the patient has a clear lung. On neurologic exam her motor function seems to be adequate and she improved while being on systemic steroids as the patient was given a Medrol taper on outpatient basis. Note that she has gained consider amount of weight and she has developed these obstructive sleep apnea that needs to be further investigated. Her current BMI is 42.9. She is snoring and she is waking up gasping for air and she has chronic hypersomnia and sleepiness. It is needs to be evaluated on outpatient basis. Chest x-rays clear. Oxidation is within normal with a pulse ox of 97%. Doppler of the lower extremity has been negative. D-dimer is low. Echocardiogram is pending for now. Computed tomography scan of the chest that was done on 06/16/2017 was within normal limits. There is no evidence of any mediastinal mass or thymoma. 2 chest discomfort without indication of any angina or acute coronary event. Awaiting echocardiogram 3 myasthenia gravis on no maintenance treatment such as pyridostigmine and the patient is utilizing steroids episodically for motor function decompensation weakness 4 morbid obesity BMI 42.9 5 diabetes mellitus 6 hypertension 7 gout 8 alkalosis, a combination of respiratory and metabolic Plan Awaiting results of the echocardiogram. Outpatient pulmonary function test and measurement of muscle forces, outpatient sleep study to rule out any sleep apnea and treat accordingly. Cardiology to comment on chest pain. We'll follow.
[2018-02-25 11:58] LABS: Glucose,Whole Blood 186 mg/dL (75-99)
[2018-02-25] MEDS: NITROGLYCERIN OINT 1 INCH/GM PACKET TOPICAL SCH (11:59)
[2018-02-25 16:10] VITALS: BP 128/69; PULSE 84; RESP 16; TEMP 98.2
[2018-02-25 17:09] LABS: Glucose,Whole Blood 173 mg/dL (75-99)
--- NOTE | 2018-02-25 22:38 | P.DS ---
Providers Date of admission: 02/24/18 15:32 Expected date of discharge: 02/25/18 Attending physician: Gabriella Jacques Consults: 02/24/18 15:31 Consult Physician Urgent Consulting Provider: Arnulfo Boyd Consult Reason/Comments: dyspnea Do you want consulting provider notified?: Yes 02/24/18 15:32 Consult Physician Urgent Consulting Provider: Ahsan Kendrick Consult Reason/Comments: cp Do you want consulting provider notified?: Yes Primary care physician: Harman Salazar Hospital Course: Discharge diagnosis Atypical chest pain. Ruled out acute coronary syndrome. Shortness of breath due to underlying myasthenia gravis and possible fluid overload from recent steroid use. Myasthenia gravis currently on tapering steroid dose Hypertension Diabetes type 2 Morbid obesity BMI 42.6 Anxiety Previous history of smoking DVT prophylaxis Hospital course Patient is a 57-year-old female with a known history of hypertension, diabetes type 2, CK D stage III and also history of myasthenia gravis came to ER with complaints of shortness of breath. Patient has been having shortness of breath which is getting worse for the past 2 days. Patient also developed chest pressure today. Midsternal. No radiation. Associated with shortness of breath. No nausea vomiting. No headache or dizziness or lightheadedness. No diaphoresis. Patient denied any abdominal pain. No pleuritic chest pain. Patient also complaining of leg swelling mainly right side and also tenderness over right calf. Patient is currently on tapering dose of steroid in the form of methylprednisolone for myasthenia gravis. Chest x-ray showed no acute process. D-dimer is not elevated. Right lower extremities duplex scan is negative for DVT. EKG showed normal sinus rhythm. Troponin 3 negative. Patient was previously treated with pyridostigmine but patient was unable to tolerated with increased muscle spasms and patient was on Medrol Depo until recently. Patient steroidAndwasduetorecentmyastheniagravisexacerbation.Patientfollowswithneurology asoutpatient 02/25/2018 Patient denied any complaints of chest pain today. Cardiac workup has been negative. ACS was ruled out. Otherwise her shortness of breath is most likely secondary to myasthenic gravis and also possible fluid gain from recent steroid use. Pulmonary recommends outpatient follow-up with pulmonary function tests and further evaluation. Otherwise cardiology has seen the patient and recommended no further workup. 2-D echocardiogram was done. Report is pending at this time. Otherwise patient is stable to be discharged home. Discharge physical examination was done and vitals reviewed. Vital Signs - 24 hr 02/25/18 02/25/18 02/25/18 00:00 04:00 07:45 Temperature 97.9 F 98.1 F Pulse Rate [ 86 85 Bilateral Radial] Pulse Rate [ Pulse Oximetery ] Respiratory 18 18 16 Rate Blood Pressure 145/82 135/81 [Left Arm] O2 Sat by Pulse 95 97 Oximetry 02/25/18 02/25/18 02/25/18 08:00 11:05 12:00 Temperature 97.9 F 98.1 F Pulse Rate [ Bilateral Radial] Pulse Rate [ 78 87 Pulse Oximetery ] Respiratory 16 16 18 Rate Blood Pressure 126/71 155/90 [Left Arm] O2 Sat by Pulse 97 98 Oximetry 02/25/18 02/25/18 15:51 16:00 Temperature 98.2 F Pulse Rate [ Bilateral Radial] Pulse Rate [ 84 Pulse Oximetery ] Respiratory 18 16 Rate Blood Pressure 128/69 [Left Arm] O2 Sat by Pulse 96 Oximetry Patient Condition at Discharge: Stable Plan - Discharge Summary Discharge Rx Participant: No New Discharge Prescriptions: Continue Insulin Glargine [Lantus] See Protocol SQ HS Topiramate [Topamax] 50 mg PO DAILY Omeprazole [PriLOSEC] 20 mg PO AC-BID Lisinopril [Prinivil] 10 mg PO DAILY Aspirin 81 mg PO DAILY metFORMIN HCL 1,000 mg PO BID Allopurinol [Zyloprim] 100 mg PO DAILY Cholecalciferol (Vitamin D3) [Vitamin D3] 2,000 unit PO DAILY Calcium Carbonate [Tums] 500 mg PO DAILY amLODIPine [Norvasc] 5 mg PO DAILY Carvedilol [Coreg] 3.125 mg PO BID methylPREDNISolone [Medrol] See Taper PO DAILY Turmeric Root Extract [Turmeric] 500 mg PO DAILY Tart Srivastava Extract 1 tab PO DAILY Insulin Aspart [NovoLOG Flexpen] See Protocol SQ ACHS Discharge Medication List Allopurinol [Zyloprim] 100 mg PO DAILY 09/28/15 [History] Aspirin 81 mg PO DAILY 09/28/15 [History] Insulin Glargine [Lantus] See Protocol SQ HS 09/28/15 [History] Lisinopril [Prinivil] 10 mg PO DAILY 09/28/15 [History] Omeprazole [PriLOSEC] 20 mg PO AC-BID 09/28/15 [History] Topiramate [Topamax] 50 mg PO DAILY 09/28/15 [History] metFORMIN HCL 1,000 mg PO BID 09/28/15 [History] Calcium Carbonate [Tums] 500 mg PO DAILY 02/24/18 [History] Carvedilol [Coreg] 3.125 mg PO BID 02/24/18 [History] Cholecalciferol (Vitamin D3) [Vitamin D3] 2,000 unit PO DAILY 02/24/18 [History] Insulin Aspart [NovoLOG Flexpen] See Protocol SQ ACHS 02/24/18 [History] Tart Srivastava Extract 1 tab PO DAILY 02/24/18 [History] Turmeric Root Extract [Turmeric] 500 mg PO DAILY 02/24/18 [History] amLODIPine [Norvasc] 5 mg PO DAILY 02/24/18 [History] methylPREDNISolone [Medrol] See Taper PO DAILY 02/24/18 [History] Follow up Appointment(s)/Referral(s): Harman Salazar MD [Primary Care Provider] - 1-2 days Pam Mcbride MD [STAFF PHYSICIAN] - 03/19/18 3:15 pm Arnulfo Boyd MD [STAFF PHYSICIAN] - 04/29/18 2:20 pm (Sleep study with Dr Harley. Please call Dr. Boyd's office to verify location.) Patient Instructions/Handouts: Chest Pain (DC), Dyspnea (GEN) Discharge Disposition: HOME SELF-CARE
--- NOTE | 2018-02-26 14:00 | ECHOF ---
Referral Reason:cp, sob MEASUREMENTS -------- HEIGHT: 157.5 cm WEIGHT: 106.1 kg BP: 126/71 IVSd: 0.9 cm (0.6 - 1.1) LVIDd: 3.9 cm (3.9 - 5.3) LVPWd: 1.0 cm (0.6 - 1.1) IVSs: 1.2 cm LVIDs: 2.6 cm LVPWs: 1.5 cm Ao Diam: 3.0 cm (2.0 - 3.7) AV Cusp: 1.9 cm (1.5 - 2.6) LA Diam: 3.3 cm (2.7 - 3.8) MV EXCURSION: 12.842 mm (> 18.000) MV EF SLOPE: 67 mm/s (70 - 150) EPSS: 0.4 cm MV E Cheo: 0.46 m/s MV DecT: 178 ms MV A Cheo: 0.46 m/s MV E/A Ratio: 0.99 RAP: 5.00 mmHg RVSP: 18.23 mmHg FINDINGS -------- Sinus rhythm. This was a technically difficult study with suboptimal views. The left ventricular size is normal. Left ventricular wall thickness is normal. Overall left vent ricular systolic function is normal with, an EF between 55 - 60 %. The right ventricle is normal in size and function. The left atrium is normal in size. The right atrium is normal in size. Lumason used The aortic valve is trileaflet, and appears structurally normal. No aortic stenosis or regurgitation. There is trace mitral regurgitation. Trace tricuspid regurgitation present. The right ventricular systolic pressure, as measured by Dopp ler, is 18.23mmHg. Pulmonic valve appears structurally normal. The aortic root size is normal. CONCLUSIONS -------- 1. Sinus rhythm. 2. This was a technically difficult study with suboptimal views. 3. The left ventricular size is normal. 4. Left ventricular wall thickness is normal. 5. Overall left ventricular systolic function is normal with, an EF between 55 - 60 %. 6. The right ventricle is normal in size and function. 7. The left atrium is normal in size. 8. The right atrium is normal in size. 9. Lumason used 10. The aortic valve is trileaflet, and appears structurally normal. No aortic stenosis or regurgitat ion. 11. There is trace mitral regurgitation. 12. Trace tricuspid regurgitation present. 13. The right ventricular systolic pressure, as measured by Doppler, is 18.23mmHg. 14. Pulmonic valve appears structurally normal. 15. The aortic root size is normal. EDUCATIONAL TECHNOLOGY COORDINATOR: Angie Sauer RDCS
== END 2018-02-25 18:40 | disposition home or self-care (01) ==
LOC: EC 12:45 → 3OBS 15:32
PROVIDERS: ADMIT Internal Medicine; ATTEND Internal Medicine
DX: R07.89 Other chest pain (principal); R06.02 Shortness of breath; G70.01 Myasthenia gravis with (acute) exacerbation; I12.9 Hypertensive chronic kidney disease with stage 1 through stage 4 chronic kidney disease, or unspecified chronic kidney disease; E11.22 Type 2 diabetes mellitus with diabetic chronic kidney disease; N18.3 Chronic kidney disease, stage 3 (moderate); M79.89 Other specified soft tissue disorders; M10.9 Gout, unspecified; F41.9 Anxiety disorder, unspecified; Z79.899 Other long term (current) drug therapy; E78.5 Hyperlipidemia, unspecified; R60.0 Localized edema; E87.3 Alkalosis; G47.33 Obstructive sleep apnea (adult) (pediatric); G47.10 Hypersomnia, unspecified; E87.4 Mixed disorder of acid-base balance; Z79.82 Long term (current) use of aspirin; Z79.4 Long term (current) use of insulin; Z79.84 Long term (current) use of oral hypoglycemic drugs; Z79.52 Long term (current) use of systemic steroids; Z88.0 Allergy status to penicillin; Z88.2 Allergy status to sulfonamides; Z91.018 Allergy to other foods; Z86.14 Personal history of Methicillin resistant Staphylococcus aureus infection; Z87.891 Personal history of nicotine dependence; Z90.49 Acquired absence of other specified parts of digestive tract; Z82.5 Family history of asthma and other chronic lower respiratory diseases; Z82.49 Family history of ischemic heart disease and other diseases of the circulatory system; Z80.8 Family history of malignant neoplasm of other organs or systems; Z82.61 Family history of arthritis; Z81.8 Family history of other mental and behavioral disorders; Z68.41 Body mass index [BMI] 40.0-44.9, adult; E66.01 Morbid (severe) obesity due to excess calories
CPT/HCPCS: 99285 ×2; 96374 ×2; 96372 ×2; 36415; 94640 ×2; 36600; 93005; 93306; 85379; 83880; 80061; 80053; 82550 ×2; 82553 ×2; 82805; 84484 ×2; 85025; 85610; 85730; 81003; 71046; 93971; G0378 ×2; J7509; J1644 ×2; J2930; Q9950

== ENCOUNTER → 2018-04-15 | Outpatient (CLI) | payer BC | END | disposition home or self-care (01) | LOC: LABWHC1 11:41 | PROVIDERS: ATTEND Psychiatry & Neurology Pain Medicine | DX: Z51.81 Encounter for therapeutic drug level monitoring (principal) | CPT/HCPCS: 36415; 82565; 84520 ==

== ENCOUNTER → 2018-04-29 | Outpatient (CLI) | payer BC | END | disposition home or self-care (01) | LOC: SLEEP 14:21 | PROVIDERS: ATTEND Internal Medicine | DX: Z53.9 Procedure and treatment not carried out, unspecified reason (principal) ==

== ENCOUNTER 2018-05-31 07:21 | Outpatient (CLI) | payer BC ==
--- NOTE | 2018-06-01 15:02 | SLS ---
SLEEP STUDY DATE OF SERVICE: 05/31/2018. 57-year-old, obese female patient who had features of obstructive sleep apnea. The patient has loud snoring and she would wake up herself on multiple occasions. She would wake up gasping for air. She has excessive fatigue and tiredness during the day. She also has history of myasthenia gravis and chronic dyspnea. 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 She had normal cardiac catheterization. Other comorbid conditions include hypertension, diabetes mellitus. PERTINENT PHYSICAL FINDINGS: Height is 5 feet 1 inch, weight is 241. BMI is 44.9. TECHNICAL DESCRIPTION: The sleep evaluation of the patient consisted of clinical polysomnography, nocturnal respiratory battery, left and right anterior tibialis surface electromyography. The standard montage for the clinical polysomnography included the EEG, EOG, EMG, and EKG. Respiratory battery included measurements of nasal/buccal airflow, thoracic, and/or abdominal effort and intercostal surface EMG. Nocturnal oxyhemoglobin saturations were obtained by finger oximetry. Digital video and audio monitoring were done throughout the entire night to check or parasomnias. STUDY OVERVIEW: Total time bed 6 hours and 5 minutes. Total sleep time 4 hours and 57 minutes. Sleep efficiency was 81.2%. Latency to sleep onset 6.4 minutes. No REM sleep was encountered. The sleep architecture was characterized by 23.1% stage I, 50.0% stage II and 14.0% stage III and 0% REM sleep. SLEEP CONTINUITY SUMMARY: The patient had a total of 93 arousals with an arousal index of 18.8. RESPIRATORY SUMMARY: The patient demonstrated a total of 128 obstructive hypopneas without any obstructive apneas or central apneas or mixed apneas. Apnea-hypopnea index was 25.9. OXYGENATION ANALYSIS: There were a total of 120 oxygen desaturations where the pulse ox dropped by more than 4%. Minimum pulse ox was 87%. The patient spent only 4.6 minutes of sleep time with a pulse ox of less than 90% accounting for 1.3% of sleep time. CARDIAC SUMMARY: Average heart rate was 85 minutes, minimum heart 72, maximum heart rate was 101, rhythm was sinus. LIMB MOVEMENT SUMMARY: A total of 6 periodic limb movements with an index of 1.2. IMPRESSION: 1. Obstructive sleep apnea moderate in severity. AHI of 25.9. 2. Excessive daytime sleepiness related to obstructive sleep apnea. 3. Loud snoring. 4. Morbid obesity with a BMI of 44.9. 5. Myasthenia gravis. 6. Hypertension. 7. Diabetes mellitus. 8. Chronic renal failure. PLAN: The patient has symptomatic obstructive sleep apnea. Based on her symptoms and comorbidities, we will proceed with a CPAP titration with intention of treating this patient with CPAP/BiPAP at a later stage. We will continue to follow. MMODL / IJN: [id number] /
== END 2018-05-31 15:25 | disposition home or self-care (01) ==
LOC: SLEEP 07:21
PROVIDERS: ATTEND Internal Medicine Critical Care Medicine
DX: G47.33 Obstructive sleep apnea (adult) (pediatric) (principal); E66.01 Morbid (severe) obesity due to excess calories; G70.00 Myasthenia gravis without (acute) exacerbation; I10 Essential (primary) hypertension; E11.9 Type 2 diabetes mellitus without complications; N18.9 Chronic kidney disease, unspecified; Z68.41 Body mass index [BMI] 40.0-44.9, adult; Z99.89 Dependence on other enabling machines and devices
CPT/HCPCS: 95810

== ENCOUNTER → 2018-06-10 | Outpatient (CLI) | payer BC ==
--- NOTE | 2018-06-11 13:40 | MM ---
Reason for exam: screening (asymptomatic). Last mammogram was performed 1 year and 9 months ago. History: Patient is postmenopausal. Took estrogen for 4 years 5 months. Physical Findings: A clinical breast exam by your physician is recommended on an annual basis and results should be correlated with mammographic findings. MG Screening Mammo w CAD Bilateral CC and MLO view(s) were taken. CV view(s) were taken of the right breast. Prior study comparison: September 16, 2016, mammogram, performed at [facility]. August 23, 2015, mammogram, performed at [facility]. The breast tissue is almost entirely fat. No suspicious abnormality in the right breast. There is a new left posterior depth 4mm asymmetry near the pectoralis muscle. ASSESSMENT: Incomplete: need additional imaging evaluation, BI-RAD 0 RECOMMENDATION: Special view mammogram of the left breast. If lesion persists on supplemental views, image directed ultrasound is recommended. [facility] will attempt to contact patient to return for supplemental views and ultrasound if indicated.
== END | disposition home or self-care (01) ==
LOC: RADMAMWWP 07:03
PROVIDERS: ATTEND Family Medicine
DX: Z12.31 Encounter for screening mammogram for malignant neoplasm of breast (principal)
CPT/HCPCS: 77067

== ENCOUNTER → 2018-06-23 | Outpatient (CLI) | payer BC | END | disposition home or self-care (01) | LOC: LABWHC1 08:52 | PROVIDERS: ATTEND Psychiatry & Neurology Pain Medicine | DX: Z51.81 Encounter for therapeutic drug level monitoring (principal) | CPT/HCPCS: 36415; 82565; 84520 ==

== ENCOUNTER 2018-06-25 17:34 | Observation (INO) | payer BC ==
[2018-06-25] MEDS ORDERED: SODIUM CHLORIDE 0.9% 1,000 ML IV STA (19:38)
[2018-06-25] MEDS ORDERED: diphenhydrAMINE 50 MG/ML 1 ML VIAL IVP STA (19:39)
[2018-06-25] MEDS ORDERED: METOCLOPRAMIDE 5 MG/ML 2 ML VIAL IVP STA (19:39)
[2018-06-25] MEDS ORDERED: ACETAMINOPHEN IV (For NPO) 1,000 MG in EMPTY BAG 1 BAG IVPB ONE (19:39)
--- NOTE | 2018-06-25 19:42 | ED ---
General Adult HPI - General Chief complaint: Headache Stated complaint: SOB & Eye Problems Source: patient Mode of arrival: ambulatory Limitations: no limitations - History of Present Illness Initial comments: Dictation was produced using [employer] dictation software. please excuse any grammatical, word or spelling errors. Chief Complaint: 57-year-old female presents with chief complaint of headaches. Patient has a history of myasthenia gravis. History of Present Illness: Patient is a 57-year-old female past medical history of myasthenia gravis, migraines presents with headache and shortness of breath. Patient has establish care for myasthenia gravis with our neurologist Dr. Chavarria. Patient states she is a candidate of IVIG in the near future. Patient states that she's been significantly more short of breath. Patient has any constitutional symptoms. Patient also has complaint of headache. She has a history of migraines. She states her headache started yesterday. She states that it's slightly throbbing. It arises from her neck and goes up to the top of her head. She states it is different from her usual headaches. The ROS documented in this emergency department record has been reviewed and confirmed by me. Those systems with pertinent positive or negative responses have been documented in the HPI. All other systems are other negative and/or noncontributory. - Related Data Home Medications Medication Instructions Recorded Confirmed Allopurinol [Zyloprim] 50 mg PO DAILY 09/28/15 06/25/18 Aspirin 81 mg PO DAILY 09/28/15 06/25/18 Insulin Glargine [Lantus] 20 unit SQ HS 09/28/15 06/25/18 Lisinopril [Prinivil] 10 mg PO DAILY 09/28/15 06/25/18 Omeprazole [PriLOSEC] 20 mg PO AC-BID 09/28/15 06/25/18 Topiramate [Topamax] 50 mg PO HS 09/28/15 06/25/18 metFORMIN HCL 1,000 mg PO BID 09/28/15 06/25/18 Calcium Carbonate [Tums] 500 mg PO DAILY 02/24/18 06/25/18 Cholecalciferol (Vitamin D3) 2,000 unit PO DAILY 02/24/18 06/25/18 [Vitamin D3] Insulin Aspart [NovoLOG Flexpen] See Protocol SQ ACHS 02/24/18 06/25/18 Carvedilol [Coreg] 6.25 mg PO BID 06/25/18 06/25/18 Allergies Allergy/AdvReac Type Severity Reaction Status Date / Time aspartame Allergy Unknown Verified 06/25/18 19:23 [From Nutrasweet Aspartame] Penicillins Allergy Unknown Verified 06/25/18 19:23 Sulfa (Sulfonamide Allergy Unknown Verified 06/25/18 19:23 Antibiotics) Review of Systems ROS Statement: Those systems with pertinent positive or pertinent negative responses have been documented in the HPI. ROS Other: All systems not noted in ROS Statement are negative. Past Medical History Past Medical History: Diabetes Mellitus, Hypertension, Renal Disease Additional Past Medical History / Comment(s): Morbid obesity with a BMI of 42.9 , gout, hypertension, diabetes mellitus, myasthenia gravis History of Any Multi-Drug Resistant Organisms: MRSA Date of last positivie culture/infection: 2013 MDRO Source:: eye Past Surgical History: Adenoidectomy, Section, Cholecystectomy, Hysterectomy, Tonsillectomy Additional Past Surgical History / Comment(s): laser eye sx for glaucoma. at times gets dizzy when up. Past Anesthesia/Blood Transfusion Reactions: Motion Sickness, Postoperative Nausea & Vomiting (PONV) Additional Past Anesthesia/Blood Transfusion Reaction / Comment(s): clausterphobia Past Psychological History: Anxiety Smoking Status: Former smoker Past Alcohol Use History: None Reported Past Drug Use History: None Reported - Past Family History Father Family Medical History: Cancer, COPD Additional Family Medical History / Comment(s): ashd, amputations d/t vascular dz, skin cancer, gout, Mother Family Medical History: Asthma, Chest Pain / Angina, Congestive Heart Failure ( CHF), Dementia, Diabetes Mellitus, Hypertension, Osteoarthritis (OA) Additional Family Medical History / Comment(s): glaucoma,gout, neuropathy General Exam - General Exam Comments Initial Comments: PHYSICAL EXAM: General Impression: Alert and oriented x3, not in acute distress, unable to count to 20 with one breath HEENT: Normocephalic atraumatic, extra-ocular movements intact, pupils equal and reactive to light bilaterally, mucous membranes moist, right closed Cardiovascular: Heart regular rate and rhythm, S1&S2 audible, no murmurs, rubs or gallops Chest: Lungs clear to auscultation bilaterally, no rhonchi, no wheeze, no rales Abdomen: Bowel sounds present, abdomen soft, non-tender, non-distended, no organomegaly Musculoskeletal: Pulses present and equal in all extremities, no peripheral edema Motor: Power 5/5 bilaterally, no focal deficits noted Neurological: CN II-XII grossly intact, no focal motor or sensory deficits noted Skin: Intact with no visualized rashes Psych: Normal affect and mood Limitations: no limitations Course Vital Signs 06/25/18 17:59 Temperature 98.3 F Pulse Rate 87 Respiratory 16 Rate Blood Pressure 178/97 O2 Sat by Pulse 98 Oximetry Medical Decision Making - Medical Decision Making ED course: An is a 57-year-old female past medical history of migraines and myasthenia gravis presents with headache and difficulty in breathing. As upon arrival shows blood pressure 170/97. Rest of vital signs within acceptable limits. Patient showing signs of respiratory failure which may be secondary to myasthenia gravis.Laboratory evaluation obtained. CBC is unremarkable. Metabolic panel is unremarkable. Patient does have mildly elevated calcium and glucose 126. Computed tomography scan of the head was obtained showing no acute processes. Chest x-ray shows no acute processes. Patient has extensive history of headaches. She states her headache is slightly different. She appears comfortable. Patient given headache cocktail with improvement of symptoms. Discussed with patient that we would like to perform a lumbar puncture if she is reporting that this is the headache gets different, has thunderclap characteristic and is worse headache of her life. Patient states that she would like to wait for her neurologist Dr. Chavarria to make that decision. Patient appears well without any neuro deficits. Patient appears comfortable at this time I believe that since patient symptoms have been ongoing for several days that this is a reasonable option. Patient admitted with neurology on consultation. - Lab Data Result diagrams: 06/25/18 20:00 06/25/18 20:00 Lab Results 06/25/18 06/25/18 Range/Units 20:00 20:00 WBC 8.9 (3.8-10.6) k/uL RBC 5.07 (3.80-5.40) m/uL Hgb 15.4 (11.4-16.0) gm/dL Hct 46.6 H (34.0-46.0) % MCV 91.9 (80.0-100.0) fL MCH 30.4 (25.0-35.0) pg MCHC 33.1 (31.0-37.0) g/dL RDW 13.1 (11.5-15.5) % Plt Count 265 (150-450) k/uL Neutrophils % 61 % Lymphocytes % 29 % Monocytes % 5 % Eosinophils % 3 % Basophils % 0 % Neutrophils # 5.5 (1.3-7.7) k/uL Lymphocytes # 2.6 (1.0-4.8) k/uL Monocytes # 0.5 (0-1.0) k/uL Eosinophils # 0.3 (0-0.7) k/uL Basophils # 0.0 (0-0.2) k/uL Sodium 142 (137-145) mmol/L Potassium 3.9 (3.5-5.1) mmol/L Chloride 104 (98-107) mmol/L Carbon Dioxide 28 (22-30) mmol/L Anion Gap 10 mmol/L BUN 17 (7-17) mg/dL Creatinine 0.89 (0.52-1.04) mg/dL Est GFR (CKD-EPI)AfAm 83 (>60 ml/min/1.73 sqM) Est GFR (CKD-EPI)NonAf 72 (>60 ml/min/1.73 sqM) Glucose 126 H (74-99) mg/dL Calcium 10.3 H (8.4-10.2) mg/dL Total Bilirubin 0.5 (0.2-1.3) mg/dL AST 23 (14-36) U/L ALT 32 (9-52) U/L Alkaline Phosphatase 98 (38-126) U/L Total Protein 7.6 (6.3-8.2) g/dL Albumin 4.4 (3.5-5.0) g/dL Disposition Clinical Impression: Myasthenia gravis, Headache Disposition: ADMITTED IP TO THIS [facility] Condition: Fair Referrals: Harman Salazar MD [Primary Care Provider] - 1-2 days Decision Time: 22:16
[2018-06-25 20:20] LABS: Basophils % (A) 0 %; Eosinophils # (A) 0.3 k/uL (0-0.7); Eosinophils % (A) 3 %; HCT 46.6 % (34.0-46.0); HGB 15.4 gm/dL (11.4-16.0); Lymphocytes # (A) 2.6 k/uL (1.0-4.8); Lymphocytes % (A) 29 %; MCH 30.4 pg (25.0-35.0); MCHC 33.1 g/dL (31.0-37.0); MCV 91.9 fL (80.0-100.0); Mean Platelet Volume 7.2; Monocytes # (A) 0.5 k/uL (0-1.0); Monocytes % (A) 5 %; Neutrophils # (A) 5.5 k/uL (1.3-7.7); Neutrophils % (A) 61 %; Platelet Count 265 k/uL (150-450); RBC 5.07 m/uL (3.80-5.40); RDW 13.1 % (11.5-15.5); WBC 8.9 k/uL (3.8-10.6)
[2018-06-25 20:34] LABS: Albumin 4.4 g/dL (3.5-5.0); Calcium 10.3 mg/dL (8.4-10.2); Potassium 3.9 mmol/L (3.5-5.1); Total Bilirubin 0.5 mg/dL (0.2-1.3); Total Protein 7.6 g/dL (6.3-8.2)
--- NOTE | 2018-06-25 20:41 | CT ---
EXAMINATION TYPE: CT brain wo con DATE OF EXAM: 06/25/2018 COMPARISON: 04/28/2017 HISTORY: headache and visual disturbance. CT DLP: 1115.4 mGycm Automated exposure control for dose reduction was used. FINDINGS: Ventricles have normal size. There is no mass effect nor midline shift. There is no sign of intracran ial hemorrhage. The calvarium is intact. IMPRESSION: NEGATIVE CT SCAN OF THE BRAIN. NO CHANGE.
--- NOTE | 2018-06-25 20:42 | XR ---
EXAMINATION TYPE: XR chest 2V DATE OF EXAM: 06/25/2018 COMPARISON: NONE HISTORY: Short of breath TECHNIQUE: Frontal and lateral views of the chest are obtained. FINDINGS: There is no heart failure nor confluent pneumonic infiltrate. Costophrenic angles are andi r. Bony thorax is intact. IMPRESSION: No active cardiopulmonary disease. No change.
[2018-06-25 22:16] LABS: Appearance,Urine Clear (Clear); Bilirubin,Urine Negative (Negative); Blood,Urine Negative (Negative); Color,Urine Yellow; Glucose,Urine (UA) Negative (Negative); Ketones,Urine Negative (Negative); Leukocyte Esterase,Urine Negative (Negative); Nitrite,Urine Negative (Negative); PH, Urine 6.5 (5.0-8.0); Protein,Urine Negative (Negative); Specific Gravity,Urine 1.019 (1.001-1.035); Urobilinogen,Urine <2.0 mg/dL (<2.0)
[2018-06-25] MEDS ORDERED: NALOXONE 0.4 MG/ML 1 ML VIAL IV PRN (22:16)
[2018-06-25 22:26] LABS: Amphetamine Screen,Urine Not Detected (NotDetected); Barbiturate Screen,Urine Detected (NotDetected); Benzodiazepines Screen,Urine Not Detected (NotDetected); Cocaine Screen,Urine Not Detected (NotDetected); Methadone Screen, Urine Not Detected (NotDetected); Opiate Screen,Urine Not Detected (NotDetected); Oxycodone Screen, Urine Not Detected (NotDetected); Phencyclidine Screen,Urine Not Detected (NotDetected); Tricyclic Antidepressant,Urine Not Detected (NotDetected); Urn Cannabinoid Scrn Not Detected (NotDetected)
[2018-06-25] MEDS ORDERED: ACETAMINOPHEN TAB 325 MG TAB PO PRN (23:03)
[2018-06-25 23:48] VITALS: BMI 43.9
[2018-06-26] MEDS: HEPARIN SODIUM,PORCINE 5,000 UNIT/ML 1 ML VIAL SQ SCH ×3 (00:28→17:14)
[2018-06-26] MEDS ORDERED: BUTALB/APAP/CAFF 50-325-40MG TAB PO PRN (08:44)
[2018-06-26 08:52] LABS: Glucose,Whole Blood 147 mg/dL (75-99)
[2018-06-26] MEDS: ONDANSETRON 4 MG/2 ML VIAL IVP PRN ×2 (08:54→17:23)
[2018-06-26] MEDS: CALCIUM CARBONATE 500 MG CHEWABLE PO SCH (08:55)
[2018-06-26] MEDS: ALLOPURINOL 100 MG TAB PO SCH (08:55)
[2018-06-26] MEDS: INSULIN ASPART 100 UNIT/ML 1 ML 10 ML VIAL SQ SCH ×4 (08:55→21:33)
[2018-06-26] MEDS: LISINOPRIL 10 MG TAB PO SCH (08:56)
[2018-06-26] MEDS: CARVEDILOL 6.25 MG TAB PO SCH ×2 (08:56→17:15)
[2018-06-26] MEDS: PANTOPRAZOLE 40 MG TABLET PO SCH ×2 (08:56→08:58)
[2018-06-26] MEDS: ASPIRIN 81 MG PO SCH (08:56)
[2018-06-26 11:52] LABS: Glucose,Whole Blood 220 mg/dL (75-99)
[2018-06-26] MEDS: CHOLECALCIFEROL 1,000 UNIT TAB PO SCH (12:34)
--- NOTE | 2018-06-26 12:37 | P.CONS ---
History of Present Illness - Reason for Consult Consult date: 06/26/18 Headache - Chief Complaint Headache - History of Present Illness Is a pleasant 57-year-old female being evaluated by the neurology service for headache. He presented to the [facility] emergency room. She has a history of migraine headaches, however this headaches a little different. She usually has lateralizing headache to the right or the left with her typical migraines. She started having some pain in the occipital area yesterday and it intensified. She was given some Tylenol Zofran and Reglan in the emergency room with minimal relief. She is usually on Fioricet which she was given earlier today. She said it did take the edge off the headache. She has a significant history of myasthenia gravis. She has had bad reactions to Mestinon she is being evaluated for possible IVIG treatment. She is all so complaining of some difficulty swallowing and some shortness of breath. The difficulty swallowing has been a minor off and on problem likely associated with her myasthenia gravis. But she knows and uses it a lot more lately. Breathing problems are relatively new. She denies any fever or chills, neck pain, vomiting. Since being diagnosed she does have a chronic ptosis of the right lid sometimes the left. Her CT in the emergency room showed no acute intracranial abnormalities. At the time of my exam she is sitting up at her bedside and seems to be in no acute distress. She did have a slightly elevated glucose but otherwise her laboratory exam was relatively normal. She did have a mildly elevated blood pressure. Review of Systems All systems: negative Constitutional: Reports as per HPI Past Medical History Past Medical History: Diabetes Mellitus, Hypertension, Renal Disease Additional Past Medical History / Comment(s): Morbid obesity with a BMI of 42.9 , gout, hypertension, diabetes mellitus, myasthenia gravis History of Any Multi-Drug Resistant Organisms: MRSA Year Discovered:: 2013 MDRO Source:: eye Past Surgical History: Adenoidectomy, Section, Cholecystectomy, Hysterectomy, Tonsillectomy Additional Past Surgical History / Comment(s): laser eye sx for glaucoma. at times gets dizzy when up. Past Anesthesia/Blood Transfusion Reactions: Motion Sickness, Postoperative Nausea & Vomiting (PONV) Additional Past Anesthesia/Blood Transfusion Reaction / Comm: clausterphobia Past Psychological History: Anxiety Additional Psychological History / Comment(s): lives alone in apt. drives, has glucometer. Smoking Status: Former smoker Past Alcohol Use History: None Reported Additional Past Alcohol Use History / Comment(s): started smoking at age 14(1973 ) and quit 1993 smoked 1.5 ppd Past Drug Use History: None Reported - Past Family History Father Family Medical History: Cancer, COPD Additional Family Medical History / Comment(s): ashd, amputations d/t vascular dz, skin cancer, gout, Mother Family Medical History: Asthma, Chest Pain / Angina, Congestive Heart Failure ( CHF), Dementia, Diabetes Mellitus, Hypertension, Osteoarthritis (OA) Additional Family Medical History / Comment(s): glaucoma,gout, neuropathy Medications and Allergies Home Medications Medication Instructions Recorded Confirmed Type Allopurinol [Zyloprim] 50 mg PO DAILY 09/28/15 06/25/18 History Aspirin 81 mg PO DAILY 09/28/15 06/25/18 History Insulin Glargine [Lantus] 20 unit SQ HS 09/28/15 06/25/18 History Lisinopril [Prinivil] 10 mg PO DAILY 09/28/15 06/25/18 History Omeprazole [PriLOSEC] 20 mg PO AC-BID 09/28/15 06/25/18 History Topiramate [Topamax] 50 mg PO HS 09/28/15 06/25/18 History metFORMIN HCL 1,000 mg PO BID 09/28/15 06/25/18 History Calcium Carbonate [Tums] 500 mg PO DAILY 02/24/18 06/25/18 History Cholecalciferol (Vitamin D3) 2,000 unit PO DAILY 02/24/18 06/25/18 History [Vitamin D3] Insulin Aspart [NovoLOG Flexpen] See Protocol SQ ACHS 02/24/18 06/25/18 History Carvedilol [Coreg] 6.25 mg PO BID 06/25/18 06/25/18 History Allergies Allergy/AdvReac Type Severity Reaction Status Date / Time aspartame Allergy Unknown Verified 06/25/18 19:23 [From Nutrasweet Aspartame] Penicillins Allergy Unknown Verified 06/25/18 19:23 Sulfa (Sulfonamide Allergy Unknown Verified 06/25/18 19:23 Antibiotics) Physical Exam Vitals: Vital Signs Temp Pulse Pulse Resp BP BP Pulse Ox 06/26/18 08:39 98.3 F 84 16 162/83 97 06/26/18 03:00 98.8 F 79 16 150/84 96 06/26/18 00:00 98.8 F 79 16 150/84 96 06/25/18 22:33 98.0 F 86 16 164/89 94 L 06/25/18 17:59 98.3 F 87 16 178/97 98 Intake and Output 06/25/18 06/26/18 06/26/18 22:59 06:59 14:59 Intake Total 540 320 Balance 540 320 Intake: Oral 540 320 Other: # Voids 2 Weight 108.862 kg 108.862 kg - Constitutional General appearance: cooperative, mild distress, obese - EENT Right-sided ptosis Eyes: no abnormal pupil, EOMI, PERRLA, ptosis ENT: hearing grossly normal - Neck Bilateral occipital nerve tenderness Neck: normal ROM, no rigidity - Respiratory Respiratory: negative: prolonged expiration, prolonged inspiration - Cardiovascular Rhythm: regular - Gastrointestinal General gastrointestinal: no distended, no tenderness - Neurologic Patient is alert awake and oriented 3. Speech-language are normal. He has some ptosis on the right with some right facial swelling otherwise no neurological deficit of the right side of the face. Tract is full in bilateral upper and lower extremities. There is no sensory deficit. Dysmetria and no dysdiadochokinesis. No tremors or seizure-like activities are seen. There is no pronator drift. There is some mild fatigue of her upper extremity muscles on strength testing. Results CBC & Chem 7: 06/25/18 20:00 06/25/18 20:00 Labs: Abnormal Lab Results - Last 24 Hours (Table) 06/25/18 06/25/18 06/25/18 Range/Units 20:00 20:00 21:55 Hct 46.6 H (34.0-46.0) % Glucose 126 H (74-99) mg/dL POC Glucose (mg/dL) (75-99) mg/dL Calcium 10.3 H (8.4-10.2) mg/dL Ur Barbiturates Screen Detected H (NotDetected) 06/26/18 06/26/18 Range/Units 08:40 11:41 Hct (34.0-46.0) % Glucose (74-99) mg/dL POC Glucose (mg/dL) 147 H 220 H (75-99) mg/dL Calcium (8.4-10.2) mg/dL Ur Barbiturates Screen (NotDetected) Assessment and Plan (1) Dysphagia Current Visit: Yes Status: Chronic Code(s): R13.10 - DYSPHAGIA, UNSPECIFIED SNOMED Code(s): 71803484 (2) Ptosis Current Visit: Yes Status: Chronic Code(s): H02.409 - UNSPECIFIED PTOSIS OF UNSPECIFIED EYELID SNOMED Code(s): 64672103 (3) Occipital neuritis Current Visit: Yes Status: Suspected Code(s): M54.81 - OCCIPITAL NEURALGIA SNOMED Code(s): 50183736 (4) Hypertension Current Visit: Yes Status: Chronic Code(s): I10 - ESSENTIAL (PRIMARY) HYPERTENSION SNOMED Code(s): 09614025 (5) Obesity Current Visit: Yes Status: Chronic Code(s): E66.9 - OBESITY, UNSPECIFIED SNOMED Code(s): 066405616 (6) Headache Current Visit: Yes Status: Acute Code(s): R51 - HEADACHE SNOMED Code(s): 53529005 (7) Myasthenia gravis Current Visit: Yes Status: Chronic Code(s): G70.00 - MYASTHENIA GRAVIS WITHOUT (ACUTE) EXACERBATION SNOMED Code(s): 45419339 (8) Dyspnea Current Visit: No Status: Acute Code(s): R06.00 - DYSPNEA, UNSPECIFIED SNOMED Code(s): 948841221 Plan: This patient with known myasthenia gravis is having a headache likely due from occipital neuritis. His resolving some with Fioricet and ice packs to the occipital area. At this point there are no focal neurological findings that warrant further investigation. If needed she could be giving her something stronger for pain but at this time Fioricet should suffice. She is complaining of some worsening dysphagia and shortness of breath. I have ordered a swallowing study and consult and pulmonary medicine. No further neurological testing is warranted at this time. She is a patient of ours and we will see her as scheduled in the clinic she should have a follow-up within a week or 2. We need to initiate treatment for her myasthenia gravis as soon as possible. I will continue to follow and make recommendations based on the above studies. Agreement stating
--- NOTE | 2018-06-26 14:12 | P.CNPUL ---
History of Present Illness Consult date: 06/26/18 Reason for consult: dyspnea, COPD, obstructive sleep apnea Chief complaint: Shortness of breath on exertion, myasthenia gravis, sleep apnea syndrome History of present illness: Pulmonary consult dated 06/26/2018 57-year-old obese white female with a history of myasthenia gravis who presents with severe headaches. She presented to the emergency room on June 25 with complaints of headaches. She also mentions that she short of breath particularly on exertion. She sees a local neurologist for management of her myasthenia gravis. Apparently cannot take Mestinon. She does get steroids from time to time. Anyway, she does mention that she does have shortness of breath practically on exertion. It tends to flare up when she has a myasthenia gravis exacerbation. She is not short of breath at rest. She denies any coughing wheezing or phlegm production. She may have some underlying mild chronic lung disease. She did smoke 21 years at 1 pack a day. She also apparently recently had a sleep study which showed severe obstructive sleep apnea syndrome. She has not yet had her CPAP titration study. Her primary care physician is Dr. Salazar. She did see my partner for evaluation of her sleep apnea syndrome. She has not seen a official court reporter. The shortness of breath which seems to only occur when her myasthenia is active. The patient is sitting up in bed. Is not having any niall respiratory distress. There is no audible wheezing or use of accessory muscles. Review of Systems A 14 point review of system is positive for shortness of breath on exertion. She denies other pulmonary complaints. She is having a headache. Past Medical History Past Medical History: Diabetes Mellitus, Hypertension, Renal Disease Additional Past Medical History / Comment(s): Morbid obesity with a BMI of 42.9 , gout, hypertension, diabetes mellitus, myasthenia gravis History of Any Multi-Drug Resistant Organisms: MRSA Date of last positivie culture/infection: 2013 MDRO Source:: eye Past Surgical History: Adenoidectomy, Section, Cholecystectomy, Hysterectomy, Tonsillectomy Additional Past Surgical History / Comment(s): laser eye sx for glaucoma. at times gets dizzy when up. Past Anesthesia/Blood Transfusion Reactions: Motion Sickness, Postoperative Nausea & Vomiting (PONV) Additional Past Anesthesia/Blood Transfusion Reaction / Comment(s): clausterphobia Past Psychological History: Anxiety Additional Psychological History / Comment(s): lives alone in [place], has glucometer. Smoking Status: Former smoker Past Alcohol Use History: None Reported Additional Past Alcohol Use History / Comment(s): started smoking at age 14(1973 ) and quit 1993 smoked 1.5 ppd Past Drug Use History: None Reported - Past Family History Father Family Medical History: Cancer, COPD Additional Family Medical History / Comment(s): ashd, amputations d/t vascular dz, skin cancer, gout, Mother Family Medical History: Asthma, Chest Pain / Angina, Congestive Heart Failure ( CHF), Dementia, Diabetes Mellitus, Hypertension, Osteoarthritis (OA) Additional Family Medical History / Comment(s): glaucoma,gout, neuropathy Medications and Allergies Home Medications Medication Instructions Recorded Confirmed Type Allopurinol [Zyloprim] 50 mg PO DAILY 09/28/15 06/25/18 History Aspirin 81 mg PO DAILY 09/28/15 06/25/18 History Insulin Glargine [Lantus] 20 unit SQ HS 09/28/15 06/25/18 History Lisinopril [Prinivil] 10 mg PO DAILY 09/28/15 06/25/18 History Omeprazole [PriLOSEC] 20 mg PO AC-BID 09/28/15 06/25/18 History Topiramate [Topamax] 50 mg PO HS 09/28/15 06/25/18 History metFORMIN HCL 1,000 mg PO BID 09/28/15 06/25/18 History Calcium Carbonate [Tums] 500 mg PO DAILY 02/24/18 06/25/18 History Cholecalciferol (Vitamin D3) 2,000 unit PO DAILY 02/24/18 06/25/18 History [Vitamin D3] Insulin Aspart [NovoLOG Flexpen] See Protocol SQ ACHS 02/24/18 06/25/18 History Carvedilol [Coreg] 6.25 mg PO BID 06/25/18 06/25/18 History Allergies Allergy/AdvReac Type Severity Reaction Status Date / Time aspartame Allergy Unknown Verified 06/25/18 19:23 [From Nutrasweet Aspartame] Penicillins Allergy Unknown Verified 06/25/18 19:23 Sulfa (Sulfonamide Allergy Unknown Verified 06/25/18 19:23 Antibiotics) Physical Exam Osteopathic Statement: *. No significant issues noted on an osteopathic structural exam other than those noted in the History and Physical/Consult. Vitals: Vital Signs Temp Pulse Pulse Resp BP BP Pulse Ox 06/26/18 08:39 98.3 F 84 16 162/83 97 06/26/18 03:00 98.8 F 79 16 150/84 96 06/26/18 00:00 98.8 F 79 16 150/84 96 06/25/18 22:33 98.0 F 86 16 164/89 94 L 06/25/18 17:59 98.3 F 87 16 178/97 98 Intake and Output 06/25/18 06/26/18 06/26/18 22:59 06:59 14:59 Intake Total 540 320 Balance 540 320 Intake: Oral 540 320 Other: # Voids 2 Weight 108.862 kg 108.862 kg No acute distress, oriented 3. No niall respiratory distress. No audible wheezing. No use of accessory muscles. HEENT examination is grossly unremarkable. Mucous membranes are moist. No oral lesions. Neck supple. Full range of motion. No adenopathy thyromegaly or neck vein distention. Cardiovascular examination reveals regular rhythm rate. S1-S2 normal. No S3 or S4. No discernible murmur noted. Lungs reveal clear breath sounds. Her sounds are equal bilaterally. No adventitious lung sounds including wheezes rhonchi or crackles. Abdomen soft bowel sounds are heard. No masses or tenderness. Extremities are intact. No cyanosis clubbing or edema. Skin is without rash or lesion. Neurologic examination is brief but nonfocal. Results - Laboratory Findings CBC and BMP: 06/25/18 20:00 06/25/18 20:00 Abnormal lab findings: Abnormal Labs 06/25/18 06/25/18 06/25/18 20:00 20:00 21:55 Hct 46.6 H Glucose 126 H POC Glucose (mg/dL) Calcium 10.3 H Ur Barbiturates Screen Detected H 06/26/18 06/26/18 08:40 11:41 Hct Glucose POC Glucose (mg/dL) 147 H 220 H Calcium Ur Barbiturates Screen - Diagnostic Findings Chest x-ray: report reviewed, image reviewed (Labs x-rays and medications are reviewed.) Assessment and Plan Assessment: Assessment Mild shortness of breath, with exertion only, likely related to underlying myasthenia gravis and/or possible obstructive pulmonary disease. History of myasthenia gravis Severe sleep apnea syndrome, yet to have a CPAP titration study Rule out pickwickian syndrome. Morbid obesity History of hypertension History of diabetes mellitus History of gout Previous history of MRSA infection Vitamin D deficiency Adverse reaction to Mestinon Plan: Plan dated 06/26/2018 The patient returns to our office, she should have complete pulmonary function test to determine whether or not there is any underlying obstructive lung disease. Currently, her shortness of breath is very mild and only present with exertion. Her biggest concern right now is her headache. Apparently, neurology is working on improving her pain control for her headache. She has not required any oxygen at this time or breathing medications. Additional recommendations and suggestions are forthcoming. Prognosis is guarded. Time with Patient: Greater than 30
[2018-06-26] MEDS ORDERED: ACETAMINOPHEN TAB 325 MG TAB PO PRN (17:00)
--- NOTE | 2018-06-26 17:01 | P.HPIM ---
Review of Systems This is a pleasant 57 years old female with past medical history of diabetes mellitus, hypertension, myasthenia gravis and kidney disease. She presents because of headache of 4-5 days duration, the headache is an occipital area nonradiating, when asking patient how it feels she answers: Like someone beats me with a baseball bat. Associated with some exertional dyspnea and difficulty swallowing. Patient has history of migraine but she says this headache is different. Also she has history of myasthenia gravis and she complains from a droopy right eyelid for about a month in which she couldn't tolerate mestinon, and she is pending approval for her IgG therapy with insurance approval. She follow up with Dr. Chavarria as an outpatient. She's been evaluated by the social worker clinical and recommended pulmonary function tests as an outpatient patient is aware of this. Associated with some difficulty swallowing and neurologist recommended Past Medical History Past Medical History: Diabetes Mellitus, Hypertension, Renal Disease Additional Past Medical History / Comment(s): Morbid obesity with a BMI of 42.9 , gout, hypertension, diabetes mellitus, myasthenia gravis History of Any Multi-Drug Resistant Organisms: MRSA Date of last positivie culture/infection: 2013 MDRO Source:: eye Past Surgical History: Adenoidectomy, Section, Cholecystectomy, Hysterectomy, Tonsillectomy Additional Past Surgical History / Comment(s): laser eye sx for glaucoma. at times gets dizzy when up. Past Anesthesia/Blood Transfusion Reactions: Motion Sickness, Postoperative Nausea & Vomiting (PONV) Additional Past Anesthesia/Blood Transfusion Reaction / Comment(s): clausterphobia Past Psychological History: Anxiety Additional Psychological History / Comment(s): lives alone in apt. [email or web address], has glucometer. Smoking Status: Former smoker Past Alcohol Use History: None Reported Additional Past Alcohol Use History / Comment(s): started smoking at age 14(1973 ) and quit 1993 smoked 1.5 ppd Past Drug Use History: None Reported - Past Family History Father Family Medical History: Cancer, COPD Additional Family Medical History / Comment(s): ashd, amputations d/t vascular dz, skin cancer, gout, Mother Family Medical History: Asthma, Chest Pain / Angina, Congestive Heart Failure ( CHF), Dementia, Diabetes Mellitus, Hypertension, Osteoarthritis (OA) Additional Family Medical History / Comment(s): glaucoma,gout, neuropathy Medications and Allergies Home Medications Medication Instructions Recorded Confirmed Type Allopurinol [Zyloprim] 50 mg PO DAILY 09/28/15 06/25/18 History Aspirin 81 mg PO DAILY 09/28/15 06/25/18 History Insulin Glargine [Lantus] 20 unit SQ HS 09/28/15 06/25/18 History Lisinopril [Prinivil] 10 mg PO DAILY 09/28/15 06/25/18 History Omeprazole [PriLOSEC] 20 mg PO AC-BID 09/28/15 06/25/18 History Topiramate [Topamax] 50 mg PO HS 09/28/15 06/25/18 History metFORMIN HCL 1,000 mg PO BID 09/28/15 06/25/18 History Calcium Carbonate [Tums] 500 mg PO DAILY 02/24/18 06/25/18 History Cholecalciferol (Vitamin D3) 2,000 unit PO DAILY 02/24/18 06/25/18 History [Vitamin D3] Insulin Aspart [NovoLOG Flexpen] See Protocol SQ ACHS 02/24/18 06/25/18 History Carvedilol [Coreg] 6.25 mg PO BID 06/25/18 06/25/18 History Allergies Allergy/AdvReac Type Severity Reaction Status Date / Time aspartame Allergy Unknown Verified 06/25/18 19:23 [From Nutrasweet Aspartame] Penicillins Allergy Unknown Verified 06/25/18 19:23 Sulfa (Sulfonamide Allergy Unknown Verified 06/25/18 19:23 Antibiotics) Physical Exam Vitals: Vital Signs Temp Pulse Pulse Resp BP BP Pulse Ox 06/26/18 08:39 98.3 F 84 16 162/83 97 06/26/18 03:00 98.8 F 79 16 150/84 96 06/26/18 00:00 98.8 F 79 16 150/84 96 06/25/18 22:33 98.0 F 86 16 164/89 94 L 06/25/18 17:59 98.3 F 87 16 178/97 98 Intake and Output 06/26/18 06/26/18 06/26/18 06:59 14:59 22:59 Intake Total 540 320 Balance 540 320 Intake: Oral 540 320 Other: # Voids 2 Weight 108.862 kg GENERAL: The patient is alert and oriented x3, not in any acute distress. Well developed, well nourished. -HEENT: Pupils are round and equally reacting to light. EOMI. No scleral icterus. No conjunctival pallor. Normocephalic, atraumatic. No pharyngeal erythema. No thyromegaly. Her right eye drop is closed. CARDIOVASCULAR: S1 and S2 present. No murmurs, rubs, or gallops. PULMONARY: Chest is clear to auscultation, no wheezing or crackles. ABDOMEN: Soft, nontender, nondistended, normoactive bowel sounds. No palpable organomegaly. MUSCULOSKELETAL: No joint swelling or deformity. EXTREMITIES: No cyanosis, clubbing, or pedal edema. NEUROLOGICAL: Gross neurological examination did not reveal any focal deficits. SKIN: No rashes. Results CBC & Chem 7: 06/25/18 20:00 06/25/18 20:00 Labs: Abnormal Lab Results - Last 24 Hours (Table) 06/25/18 06/25/18 06/25/18 Range/Units 20:00 20:00 20:00 Hct 46.6 H (34.0-46.0) % Glucose 126 H (74-99) mg/dL POC Glucose (mg/dL) (75-99) mg/dL Hemoglobin A1c 8.0 H (4.0-6.0) % Calcium 10.3 H (8.4-10.2) mg/dL Ur Barbiturates Screen (NotDetected) 06/25/18 06/26/18 06/26/18 Range/Units 21:55 08:40 11:41 Hct (34.0-46.0) % Glucose (74-99) mg/dL POC Glucose (mg/dL) 147 H 220 H (75-99) mg/dL Hemoglobin A1c (4.0-6.0) % Calcium (8.4-10.2) mg/dL Ur Barbiturates Screen Detected H (NotDetected) Thrombosis Risk Factor Assmnt - Choose All That Apply Any of the Below Risk Factors Present?: Yes Each Factor Represents 1 point: Age 41-60 years, Obesity (BMI >25) Other Risk Factors: No Other congenital or acquired thrombophilia - If yes, enter type in comment: No Thrombosis Risk Factor Assessment Total Risk Factor Score: 2 Thrombosis Risk Factor Assessment Level: Low Risk Assessment and Plan Assessment: Occipital Headache, neurological evaluation is appreciated and suspected occipital neuritis Myasthenia gravis with a drop in eyelids Dyspnea, evaluated by social worker clinical which she thinks is related to myasthenia gravis and/or mild COPD exacerbation Difficulty swallowing, pending swallow evaluation History of sleep apnea syndrome, Plan: Patient presents with occipital headaches suspicious for occipital neuritis. Continue with same treatment. Continue symptomatic treatment. Resume home medication. Monitor labs. Neurologist recommended Fioricet and icepack. Hemostasis evaluated the patient and recommended pulmonary function test as an outpatient. GI and DVT prophylaxis. Further recommendations based on the clinical course of the patient's. Prognosis is guarded
[2018-06-26] MEDS: BUTALB/APAP/CAFF 50-325-40MG TAB PO PRN (17:23)
[2018-06-26 17:53] LABS: Glucose,Whole Blood 126 mg/dL (75-99)
[2018-06-26 20:28] LABS: Glucose,Whole Blood 165 mg/dL (75-99)
[2018-06-26] MEDS ORDERED: INSULIN DETEMIR 100 UNIT/ML 10 ML VIAL SQ SCH (21:00)
[2018-06-26] MEDS: TOPIRAMATE 25 MG TAB PO SCH (21:34)
[2018-06-27] MEDS: HEPARIN SODIUM,PORCINE 5,000 UNIT/ML 1 ML VIAL SQ SCH ×3 (00:41→16:56)
[2018-06-27] MEDS: ONDANSETRON 4 MG/2 ML VIAL IVP PRN ×3 (00:45→17:04)
[2018-06-27] MEDS: BUTALB/APAP/CAFF 50-325-40MG TAB PO PRN ×3 (00:46→17:05)
[2018-06-27] MEDS: OMEPRAZOLE 20 MG PO SCH ×4 (05:17→21:23)
[2018-06-27] MEDS ORDERED: INSULIN DETEMIR 100 UNIT/ML 10 ML VIAL SQ SCH ×2 (06:23→21:00)
[2018-06-27 07:23] LABS: Glucose,Whole Blood 173 mg/dL (75-99)
[2018-06-27] MEDS: ALLOPURINOL 100 MG TAB PO SCH (08:32)
[2018-06-27] MEDS: CARVEDILOL 6.25 MG TAB PO SCH ×2 (08:33→18:36)
[2018-06-27] MEDS: LISINOPRIL 10 MG TAB PO SCH (08:33)
[2018-06-27] MEDS: CALCIUM CARBONATE 500 MG CHEWABLE PO SCH (08:33)
[2018-06-27] MEDS: ASPIRIN 81 MG PO SCH (08:33)
[2018-06-27] MEDS: INSULIN ASPART 100 UNIT/ML 1 ML 10 ML VIAL SQ SCH ×4 (08:42→21:19)
[2018-06-27] MEDS: CHOLECALCIFEROL 1,000 UNIT TAB PO SCH (11:16)
--- NOTE | 2018-06-27 11:35 | P.PN ---
Subjective Progress Note Date: 06/27/18 Principal diagnosis: Shortness of breath, myasthenia gravis Progress note dated 06/27/2018 57-year-old female admitted with a diagnosis of headache and myasthenia gravis and mild shortness of breath. Currently, her headache is much improved. Her headache and myasthenia gravis is being managed by neurology. Her shortness of breath is primarily a problem when her myasthenia is active. The shortness of breath was very mild and only occurs on exertion. The patient also may have some underlying COPD. That's yet to be determined. She'll need pulmonary function test for that. She did smoke 21 years at 1 pack a day. She states that she will be discharged tomorrow. They want to do a swallowing evaluation on her because she seems to develop some difficulty breathing and choking after she eats. We gave her my card and she follow-up with me afterwards. She also sees my partner for sleep apnea syndrome. She has not had her CPAP titration study as yet. Objective - Vital Signs Vital signs: Vital Signs Temp 98.2 F 06/27/18 07:00 Pulse 96 06/27/18 07:00 Resp 16 06/27/18 07:00 BP 134/84 06/27/18 07:00 Pulse Ox 96 06/27/18 00:31 Intake & Output 06/26/18 06/27/18 06/27/18 18:59 06:59 18:59 Intake Total 720 222 Balance 720 222 Intake: Oral 720 222 Other: Voiding Method Toilet # Voids 1 0 - Exam No acute distress, oriented 3. HEENT examination is grossly unremarkable. Mucous membranes are moist. No oral lesions. Neck supple. Full range of motion. No adenopathy thyromegaly or neck vein distention. Cardiovascular examination reveals regular rhythm rate. S1-S2 normal. No S3 or S4. No discernible murmur noted. Lungs reveal clear breath sounds. Her sounds are equal bilaterally. No adventitious lung sounds including wheezes rhonchi or crackles. Abdomen soft bowel sounds are heard. No masses or tenderness. Extremities are intact. No cyanosis clubbing or edema. Skin is without rash or lesion. Neurologic examination is brief but nonfocal. - Labs CBC & Chem 7: 06/25/18 20:00 06/25/18 20:00 Labs: Abnormal Lab Results - Last 24 Hours (Table) 06/25/18 06/26/18 06/26/18 Range/Units 20:00 11:41 17:30 POC Glucose (mg/dL) 220 H 126 H (75-99) mg/dL Hemoglobin A1c 8.0 H (4.0-6.0) % 06/26/18 06/27/18 Range/Units 20:26 07:11 POC Glucose (mg/dL) 165 H 173 H (75-99) mg/dL Hemoglobin A1c (4.0-6.0) % Assessment and Plan Assessment: Assessment Mild shortness of breath, with exertion only, likely related to underlying myasthenia gravis and/or possible obstructive pulmonary disease. History of myasthenia gravis Severe sleep apnea syndrome, yet to have a CPAP titration study Possible chronic aspiration, to be evaluated by swallow evaluation in the morning. Rule out pickwickian syndrome. Morbid obesity History of hypertension History of diabetes mellitus History of gout Previous history of MRSA infection Vitamin D deficiency Adverse reaction to Mestinon Plan: Plan dated 06/26/2018 The patient returns to our office, she should have complete pulmonary function test to determine whether or not there is any underlying obstructive lung disease. Currently, her shortness of breath is very mild and only present with exertion. Her biggest concern right now is her headache. Apparently, neurology is working on improving her pain control for her headache. She has not required any oxygen at this time or breathing medications. Additional recommendations and suggestions are forthcoming. Prognosis is guarded. Plan dated 06/27/2018 The patient returned to the office and have complete pulmonary function test. This will help us evaluate her shortness of breath, to determine whether or not there is any intrinsic pulmonary disease apart from her myasthenia. In addition , she needs to follow-up with my partner for a CPAP titration study. She apparently has quite severe sleep apnea syndrome. The patient otherwise is doing reasonably well. She is to have a swallow evaluation tomorrow morning to evaluate the potential for aspiration. No new labs to report. No new x-rays to report. Medications are reviewed. Prognosis is guarded. Time with Patient: Less than 30
[2018-06-27 12:07] LABS: Glucose,Whole Blood 129 mg/dL (75-99)
[2018-06-27] MEDS ORDERED: POLYETHYLENE GLYCOL 3350 17 GM POWD.PACK PO PRN (12:19)
[2018-06-27] MEDS ORDERED: SENNOSIDES 8.6 MG TAB PO PRN (12:20)
[2018-06-27] MEDS: KETOROLAC 30 MG/ML 1 ML VIAL IVP PRN (13:05)
--- NOTE | 2018-06-27 13:17 | P.PN ---
Subjective Progress Note Date: 06/27/18 Principal diagnosis: Headache This 57 year female continuing be evaluated by the neurology service. Her headache is mildly improved but still persists. It is still consistent with occipital neuritis. No new symptoms or focal neurological symptoms or present. She was evaluated by pulmonology to investigate her difficulty breathing given her history of myasthenia gravis. They've cleared her to follow up in outpatient setting. Her swallowing study has not been done for her symptom of worsening dysphagia. At this time my exam she is sitting up at her bedside chair in no acute distress. Objective - Vital Signs Vital signs: Vital Signs Temp 98.2 F 06/27/18 07:00 Pulse 96 06/27/18 07:00 Resp 16 06/27/18 07:00 BP 134/84 06/27/18 07:00 Pulse Ox 96 06/27/18 00:31 Intake & Output 06/26/18 06/27/18 06/27/18 18:59 06:59 18:59 Intake Total 720 222 Balance 720 222 Intake: Oral 720 222 Other: Voiding Method Toilet # Voids 1 0 - Constitutional General appearance: Present: no acute distress, obese - EENT Eyes: Present: EOMI, PERRLA, ptosis. Absent: abnormal pupil ENT: Present: hearing grossly normal - Neck Neck: Present: normal ROM. Absent: rigidity - Respiratory Respiratory: negative: prolonged expiration, prolonged inspiration - Cardiovascular Rhythm: regular - Gastrointestinal General gastrointestinal: Absent: distended - Neurologic Neurologic Comment(s): She is alert awake and oriented 3. Speech-language are normal. Ptosis continues on the right. Strength is full in bilateral upper lower extremity is. She has no sensory deficit. No tremors or seizure-like activities are seen. - Labs CBC & Chem 7: 06/25/18 20:00 06/25/18 20:00 Labs: Abnormal Lab Results - Last 24 Hours (Table) 06/25/18 06/26/18 06/26/18 Range/Units 20:00 17:30 20:26 POC Glucose (mg/dL) 126 H 165 H (75-99) mg/dL Hemoglobin A1c 8.0 H (4.0-6.0) % 06/27/18 06/27/18 Range/Units 07:11 11:55 POC Glucose (mg/dL) 173 H 129 H (75-99) mg/dL Hemoglobin A1c (4.0-6.0) % Assessment and Plan (1) Dysphagia Current Visit: Yes Status: Chronic Code(s): R13.10 - DYSPHAGIA, UNSPECIFIED SNOMED Code(s): 45331214 (2) Ptosis Current Visit: Yes Status: Chronic Code(s): H02.409 - UNSPECIFIED PTOSIS OF UNSPECIFIED EYELID SNOMED Code(s): 82075668 (3) Occipital neuritis Current Visit: Yes Status: Suspected Code(s): M54.81 - OCCIPITAL NEURALGIA SNOMED Code(s): 53189871 (4) Hypertension Current Visit: Yes Status: Chronic Code(s): I10 - ESSENTIAL (PRIMARY) HYPERTENSION SNOMED Code(s): 50030508 (5) Obesity Current Visit: Yes Status: Chronic Code(s): E66.9 - OBESITY, UNSPECIFIED SNOMED Code(s): 759321769 (6) Headache Current Visit: Yes Status: Acute Code(s): R51 - HEADACHE SNOMED Code(s): 46321703 (7) Myasthenia gravis Current Visit: Yes Status: Chronic Code(s): G70.00 - MYASTHENIA GRAVIS WITHOUT (ACUTE) EXACERBATION SNOMED Code(s): 51374926 (8) Dyspnea Current Visit: No Status: Acute Code(s): R06.00 - DYSPNEA, UNSPECIFIED SNOMED Code(s): 839475058 Plan: This patient with known myasthenia gravis is having a headache likely due from occipital neuritis. It is improving some with Fioricet and ice packs to the occipital area. At this point there are no new focal neurological findings that warrant further investigation. If needed she could be giving her something stronger for pain but at this time Fioricet should suffice. She was complaining of some worsening dysphagia and shortness of breath. I have ordered a swallowing study and pulmonary medicine has artery cleared her to follow up in outpatient setting. No further neurological testing is warranted at this time. She is a patient of ours and we will see her as scheduled in the clinic she should have a follow-up within a week or 2. We need to initiate treatment for her myasthenia gravis as soon as possible. Barring any serious abnormality is on her swallowing study she could be cleared from a neurological standpoint to follow up in outpatient setting I have performed a history and physical on the above patient. I have reviewed the above note, and agree.
--- NOTE | 2018-06-27 13:26 | P.PN ---
Subjective This 57-year-old with history of myasthenia gravis came in with the headache believed to be secondary to cervical cephalalgia patient is on Fioricet will add Toradol because of continued pain. Patient has gastroesophageal reflux disease well-controlled symptoms on Prilosec which will be continued. Patient also has some shortness of breath which improved now for which her banquet chef recommending pulmonary function testing and patient will undergo speech therapy evaluation because of her dysphagia. Constitutional: Denied any fatigue denied any fever. Cardio vascular: denied any chest pain, palpitations Gastrointestinal denied any nausea vomiting Pulmonary: Denied any shortness of breath cough Neurologic denied any new focal deficits Objective - Vital Signs Vital signs: Vital Signs Temp 98.2 F 06/27/18 07:00 Pulse 96 06/27/18 07:00 Resp 16 06/27/18 07:00 BP 134/84 06/27/18 07:00 Pulse Ox 96 06/27/18 00:31 Intake & Output 06/26/18 06/27/18 06/27/18 18:59 06:59 18:59 Intake Total 720 222 Balance 720 222 Intake: Oral 720 222 Other: Voiding Method Toilet # Voids 1 0 - Exam PHYSICAL EXAMINATION: GENERAL: The patient is alert and oriented x3, not in any acute distress. Well developed, well nourished. HEENT: Pupils are round and equally reacting to light. EOMI. No scleral icterus. No conjunctival pallor. Normocephalic, atraumatic. No pharyngeal erythema. No thyromegaly. CARDIOVASCULAR: S1 and S2 present. No murmurs, rubs, or gallops. PULMONARY: Chest is clear to auscultation, no wheezing or crackles. ABDOMEN: Soft, nontender, nondistended, normoactive bowel sounds. No palpable organomegaly. MUSCULOSKELETAL: No joint swelling or deformity. EXTREMITIES: No cyanosis, clubbing, or pedal edema. NEUROLOGICAL: Gross neurological examination did not reveal any focal deficits. SKIN: No rashes. - Labs CBC & Chem 7: 06/25/18 20:00 06/25/18 20:00 Labs: Abnormal Lab Results - Last 24 Hours (Table) 06/25/18 06/26/18 06/26/18 Range/Units 20:00 17:30 20:26 POC Glucose (mg/dL) 126 H 165 H (75-99) mg/dL Hemoglobin A1c 8.0 H (4.0-6.0) % 06/27/18 06/27/18 Range/Units 07:11 11:55 POC Glucose (mg/dL) 173 H 129 H (75-99) mg/dL Hemoglobin A1c (4.0-6.0) % Assessment and Plan Plan: -Cervical cephalalgia will add Toradol continued Fioricet -Myasthenia gravis -Shortness of breath patient will be evaluated further he function testing as an outpatient -Sleep apnea -Possibility of chronic aspiration because of which patient will undergo swallow evaluation -Obesity: Counseling was provided -Hypertension -Type 2 diabetes mellitus: Patient uses metformin which will be resumed
[2018-06-27 17:57] LABS: Glucose,Whole Blood 151 mg/dL (75-99)
[2018-06-27] MEDS: metFORMIN 500 MG TAB PO SCH (18:40)
[2018-06-27 20:21] LABS: Glucose,Whole Blood 144 mg/dL (75-99)
[2018-06-27] MEDS: TOPIRAMATE 25 MG TAB PO SCH (21:18)
[2018-06-28] MEDS: KETOROLAC 30 MG/ML 1 ML VIAL IVP PRN ×2 (05:40→13:30)
[2018-06-28] MEDS: ONDANSETRON 4 MG/2 ML VIAL IVP PRN ×2 (05:40→13:30)
[2018-06-28 07:34] LABS: Glucose,Whole Blood 133 mg/dL (75-99)
[2018-06-28 07:36] VITALS: RESP 16
[2018-06-28] MEDS: OMEPRAZOLE 20 MG PO SCH (10:15)
[2018-06-28] MEDS: ALLOPURINOL 100 MG TAB PO SCH (10:15)
[2018-06-28] MEDS: metFORMIN 500 MG TAB PO SCH ×2 (10:15→18:06)
[2018-06-28] MEDS: CARVEDILOL 6.25 MG TAB PO SCH ×2 (10:16→18:06)
[2018-06-28] MEDS: INSULIN ASPART 100 UNIT/ML 1 ML 10 ML VIAL SQ SCH ×3 (10:16→18:07)
[2018-06-28] MEDS: ASPIRIN 81 MG PO SCH (10:16)
[2018-06-28] MEDS: LISINOPRIL 10 MG TAB PO SCH (10:16)
[2018-06-28] MEDS: HEPARIN SODIUM,PORCINE 5,000 UNIT/ML 1 ML VIAL SQ SCH ×4 (10:16→18:12)
[2018-06-28] MEDS: CALCIUM CARBONATE 500 MG CHEWABLE PO SCH (10:16)
[2018-06-28 11:49] LABS: Glucose,Whole Blood 148 mg/dL (75-99)
[2018-06-28] MEDS: CHOLECALCIFEROL 1,000 UNIT TAB PO SCH (13:30)
--- NOTE | 2018-06-28 14:36 | FL ---
ESOPHOGRAM. HISTORY: Dysphagia Esophagram was performed per the air contrast technique. The patient swallowed barium and effervesce nt crystals without difficulty or delay. Esophageal peristalsis and motility appear to be within normal limits. There is no evidence for filling defect, mass or diverticulum. No hiatal hernia seen. Subsequently single contrast cervical esophagram was performed which fails demonstrate evidence for a spiration penetration or mass. There is hypertrophy of the cricopharyngeus musculature. IMPRESSION: Hypertrophy of the cricopharyngeus musculature.
[2018-06-28 14:49] VITALS: BP 140/92; PULSE 90; TEMP 98.1
[2018-06-28 16:36] LABS: Glucose,Whole Blood 150 mg/dL (75-99)
--- NOTE | 2018-06-28 18:09 | P.PN ---
Subjective Progress Note Date: 06/28/18 Principal diagnosis: Mild dyspnea with exertion, related to underlying myasthenia gravis and or possible obstructive pulmonary disease Progress note dated 06/27/2018 57-year-old female admitted with a diagnosis of headache and myasthenia gravis and mild shortness of breath. Currently, her headache is much improved. Her headache and myasthenia gravis is being managed by neurology. Her shortness of breath is primarily a problem when her myasthenia is active. The shortness of breath was very mild and only occurs on exertion. The patient also may have some underlying COPD. That's yet to be determined. She'll need pulmonary function test for that. She did smoke 21 years at 1 pack a day. She states that she will be discharged tomorrow. They want to do a swallowing evaluation on her because she seems to develop some difficulty breathing and choking after she eats. We gave her my card and she follow-up with me afterwards. She also sees my partner for sleep apnea syndrome. She has not had her CPAP titration study as yet. On 06/28/2018 patient seen in follow-up. She is sitting up in the chair, in no acute distress, denies any shortness of breath, no coughing. She had a swallow evaluation today, and there was no evidence of aspiration, penetration or mass. There was hypertrophy of the cricopharyngeus musculature. Her headache has improved, on a combination of first set, and Toradol. Currently is 2 out of 10. Lung sounds are clear to auscultation. Pulse ox is 96%, hemodynamically stable, patient is afebrile. Discharge planning is in progress for discharge home today with tomorrow. Patient follows with Dr. Boyd in the outpatient setting. She'll need follow-up in the office within one or 2 weeks Objective - Vital Signs Vital signs: Vital Signs Temp 98.1 F 06/28/18 14:46 Pulse 90 06/28/18 14:46 Resp 16 06/28/18 14:46 BP 140/92 06/28/18 14:46 Pulse Ox 96 06/28/18 14:46 Intake & Output 06/27/18 06/28/18 06/28/18 18:59 06:59 18:59 Intake Total 704 540 940 Balance 704 540 940 Intake: Oral 704 540 540 Other 400 Other: Voiding Method Toilet # Voids 1 2 - Exam No acute distress, oriented 3. HEENT examination is grossly unremarkable. Mucous membranes are moist. No oral lesions. Neck supple. Full range of motion. No adenopathy thyromegaly or neck vein distention. Cardiovascular examination reveals regular rhythm rate. S1-S2 normal. No S3 or S4. No discernible murmur noted. Lungs reveal clear breath sounds. Her sounds are equal bilaterally. No adventitious lung sounds including wheezes rhonchi or crackles. Abdomen soft bowel sounds are heard. No masses or tenderness. Extremities are intact. No cyanosis clubbing or edema. Skin is without rash or lesion. Neurologic examination is brief but nonfocal. - Labs CBC & Chem 7: 06/25/18 20:00 06/25/18 20:00 Labs: Abnormal Lab Results - Last 24 Hours (Table) 06/27/18 06/28/18 06/28/18 Range/Units 20:20 07:12 11:37 POC Glucose (mg/dL) 144 H 133 H 148 H (75-99) mg/dL 06/28/18 Range/Units 16:24 POC Glucose (mg/dL) 150 H (75-99) mg/dL Assessment and Plan Plan: Assessment: Mild shortness of breath, with exertion only, likely related to underlying myasthenia gravis and/or possible obstructive pulmonary disease. History of myasthenia gravis Severe sleep apnea syndrome, yet to have a CPAP titration study Possible chronic aspiration, to be evaluated by swallow evaluation in the morning. Rule out pickwickian syndrome. Morbid obesity History of hypertension History of diabetes mellitus History of gout Previous history of MRSA infection Vitamin D deficiency Adverse reaction to Mestinon Plan: Currently denies any shortness of breath, no wheezing, no fever or chills, vital signs are stable, she passed her swallow evaluation. On room air, vital signs are stable. Headache is improving. Lung sounds are clear. From pulmonary perspective patient is stable for discharge home. Follow up with Dr. Boyd in the office in one or 2 weeks I performed a history & physical examination of the patient and discussed their management with my nurse practitioner, Deja Munoz. I reviewed the nurse practitioner's note and agree with the documented findings and plan of care. Lung sounds are clear. The findings and the impression was discussed with the patient. I attest to the documentation by the nurse practitioner. Time with Patient: Less than 30
--- NOTE | 2018-07-05 12:00 | DS ---
DISCHARGE SUMMARY DATE OF ADMISSION: 06/25/2018 DATE OF DISCHARGE: 06/28/2018 FINAL DIAGNOSES: 1. Acute cervical cephalgia. 2. Chronic myasthenia gravis. 3. Essential hypertension. 4. Diabetes mellitus type 2, chronically on insulin. 5. Morbid obesity, body mass index of 43.9. CONSULTATION: 1. Dr. Chavarria from Neurology. 2. Dr. Hawthorne from Pulmonary. HOSPITAL COURSE: This patient presented with significant headache, felt to be cervical cephalgia. Doing better at the time of discharge. The patient did have a barium swallow that was negative for any aspiration. Patient may be having some sleep studies as an outpatient for workup for Pickwickian and obstructive sleep apnea. Patient's headache was much better by the time of discharge. CT scan of the brain was negative. PHYSICAL EXAMINATION: Temperature 98.1, pulse 90, respirations 16, blood pressure 140/92, pulse ox 96% on room air. LUNGS: Distant breath sounds. CARDIOVASCULAR: Heart sounds muffled. LABS: White count 8.9, potassium 3.9. DISCHARGE MEDICATIONS: 1. Allopurinol 50 mg a day. 2. Aspirin 81 mg a day. 3. Lantus 20 units subcu q.h.s. 4. Prinivil 10 mg p.o. daily. 5. Prilosec 20 mg a.c. b.i.d. 6. Topamax 50 mg p.o. q.h.s. 7. Metformin 1000 mg p.o. b.i.d. 8. TUMS 500 mg p.o. daily. 9. Vitamin D3 two thousand units p.o. daily. 10.NovoLog FlexPen q.a.c. at bedtime. 11.Coreg 6.25 mg p.o. b.i.d. FOLLOWUP: Follow up with Dr. Salazar within the week. Follow up with Dr. Chavarria in 1 week. Follow up with Dr. Hawthorne as reached by him. MMODL / IJN: [id number] /
== END 2018-06-28 19:44 | disposition home or self-care (01) ==
LOC: EC 17:34 → 4SSUR 22:17
PROVIDERS: ADMIT Hospitalist; ATTEND Hospitalist
DX: R51 Headache (principal); G70.00 Myasthenia gravis without (acute) exacerbation; E11.65 Type 2 diabetes mellitus with hyperglycemia; G47.33 Obstructive sleep apnea (adult) (pediatric); I12.9 Hypertensive chronic kidney disease with stage 1 through stage 4 chronic kidney disease, or unspecified chronic kidney disease; E11.22 Type 2 diabetes mellitus with diabetic chronic kidney disease; N18.9 Chronic kidney disease, unspecified; E55.9 Vitamin D deficiency, unspecified; E66.01 Morbid (severe) obesity due to excess calories; Z68.41 Body mass index [BMI] 40.0-44.9, adult; M10.9 Gout, unspecified; H40.9 Unspecified glaucoma; F40.240 Claustrophobia; F41.9 Anxiety disorder, unspecified; R13.10 Dysphagia, unspecified; H02.401 Unspecified ptosis of right eyelid; K21.9 Gastro-esophageal reflux disease without esophagitis; Z79.4 Long term (current) use of insulin; Z79.899 Other long term (current) drug therapy; Z79.82 Long term (current) use of aspirin; Z88.0 Allergy status to penicillin; Z88.2 Allergy status to sulfonamides; Z88.8 Allergy status to other drugs, medicaments and biological substances; Z91.02 Food additives allergy status; Z86.69 Personal history of other diseases of the nervous system and sense organs; Z86.14 Personal history of Methicillin resistant Staphylococcus aureus infection; Z90.49 Acquired absence of other specified parts of digestive tract; Z90.710 Acquired absence of both cervix and uterus; Z87.891 Personal history of nicotine dependence; Z82.49 Family history of ischemic heart disease and other diseases of the circulatory system; Z80.8 Family history of malignant neoplasm of other organs or systems; Z82.5 Family history of asthma and other chronic lower respiratory diseases; Z83.3 Family history of diabetes mellitus; Z82.0 Family history of epilepsy and other diseases of the nervous system; Z81.8 Family history of other mental and behavioral disorders; Z82.61 Family history of arthritis; Z83.511 Family history of glaucoma
CPT/HCPCS: 96372 ×3; 96375 ×3; 96376 ×3; 96361; 96365; 99285; 36415; 80053; 85025; 81003; 80306; 83036; 74220; 71046; 70450; G0378 ×4; J1200; J1644 ×3; J2765; J2405 ×3; J1885 ×2; J0131

== ENCOUNTER → 2018-09-29 | Outpatient (CLI) | payer BC ==
[2018-09-29 12:20] LABS: Basophils # (A) 0.1 k/uL (0-0.2); Basophils % (A) 1 %; Eosinophils # (A) 0.1 k/uL (0-0.7); Eosinophils % (A) 1 %; HCT 43.9 % (34.0-46.0); HGB 13.7 gm/dL (11.4-16.0); Lymphocytes % (A) 31 %; MCH 29.4 pg (25.0-35.0); MCHC 31.2 g/dL (31.0-37.0); MCV 94.2 fL (80.0-100.0); Mean Platelet Volume 6.7; Monocytes # (A) 0.6 k/uL (0-1.0); Monocytes % (A) 5 %; Neutrophils # (A) 7.9 k/uL (1.3-7.7); Neutrophils % (A) 61 %; Platelet Count 271 k/uL (150-450); RBC 4.65 m/uL (3.80-5.40); WBC 13.1 k/uL (3.8-10.6)
[2018-09-29 18:20] LABS: Albumin 3.8 g/dL (3.80-4.90); Albumin/Globulin Ratio 2.11 (1.20-2.10); Anion Gap 7.7 mmol/L (4.00-12.00); Calcium 9.3 mg/dL (8.7-10.3); Carbon Dioxide 30.3 mmol/L (21.6-31.8); Globulin 1.8 g/dL (1.6-3.3); Potassium 3.4 mmol/L (3.5-5.5); Total Bilirubin 0.3 mg/dL (0.2-1.2); Total Protein 5.6 g/dL (6.2-8.2)
[2018-09-29 20:03] LABS: Hemoglobin A1C 8.7 % (4.0-6.0)
== END ==
LOC: LABWHC1 11:07
PROVIDERS: ATTEND Psychiatry & Neurology Neurology
DX: G70.01 Myasthenia gravis with (acute) exacerbation (principal); M62.81 Muscle weakness (generalized); G43.701 Chronic migraine without aura, not intractable, with status migrainosus; M54.81 Occipital neuralgia; E11.9 Type 2 diabetes mellitus without complications; T45.1X5A Adverse effect of antineoplastic and immunosuppressive drugs, initial encounter
CPT/HCPCS: 36415; 80053; 82550; 83036; 85025

== ENCOUNTER 2018-10-02 16:30 | Inpatient (IN) | payer BC ==
[2018-10-02] MEDS ORDERED: methylPREDNISolone SOD SUCCI 125 MG/2 ML VIAL ONE (17:00)
[2018-10-02] MEDS ORDERED: IPRATROPIUM-ALBUTEROL 3 ML NEB ONE (17:00)
[2018-10-02] MEDS ORDERED: LORazepam 2 MG/ML INJ ONE (17:00)
--- NOTE | 2018-10-02 23:42 | XR ---
EXAMINATION TYPE: 2 views chest DATE OF EXAM: 10/02/2018 COMPARISON: 06/25/2018 HISTORY: 58-year-old female shortness of breath, chest pain, and cough FINDINGS: Heart borderline to mildly enlarged. Mild diffuse interstitial prominence as a chronic appearance. No consolidation or pleural effusion. IMPRESSION: Borderline to mild cardiomegaly and chronic changes. No definite acute process.
--- NOTE | 2018-10-02 23:43 | CT ---
EXAMINATION TYPE: CT head without contrast DATE OF EXAM: 10/02/2018 COMPARISON: 06/25/2018 HISTORY: 58-year-old female with new seizure. TECHNIQUE: Examination was done in axial plane without intravenous contrast. Coronal and sagittal r econstructions performed. CT DLP: 1126.4k mGycm Automated exposure control for dose reduction was used. FINDINGS: There is no evidence of acute intracranial hemorrhage, acute ischemic changes, mass, mass-effect, or extra-axial fluid collection. There is no effacement of cerebral sulci or basal subarachnoid cister ns. There is no hydrocephalus. There is no midline shift. Encinas-white matter distinction is preserv ed. Trace mucosal thickening bilateral maxillary sinuses and mild mucosal thickening ethmoid air cells is new. Mastoid air cells are well pneumatized. Orbits and globes are intact. IMPRESSION: No acute intracranial abnormality seen. New mild chronic ethmoid and maxillary sinus disease.
[2018-10-03] MEDS ORDERED: LORazepam 0.5 MG TAB PO PRN (00:23)
[2018-10-03] MEDS ORDERED: ONDANSETRON 4 MG/2 ML VIAL IVP PRN (00:25)
[2018-10-03] MEDS ORDERED: IBUPROFEN 400 MG TAB PO PRN (00:31)
[2018-10-03] MEDS ORDERED: INSULIN DETEMIR 100 UNIT/ML 10 ML VIAL SQ SCH ×3 (01:00→21:00)
[2018-10-03] MEDS ORDERED: INSULIN ASPART 100 UNIT/ML 1 ML 10 ML VIAL SQ ONE (01:12)
[2018-10-03] MEDS ORDERED: MECLIZINE 25 MG TAB PO PRN (01:38)
[2018-10-03] MEDS: CARVEDILOL 6.25 MG TAB PO SCH ×3 (02:19→21:48)
[2018-10-03] MEDS: TOPIRAMATE 25 MG TAB PO SCH ×3 (02:19→21:49)
[2018-10-03] MEDS: guaiFENesin-DM 100-10MG/5ML 10 ML CUP PO PRN ×3 (02:20→19:06)
[2018-10-03] MEDS: IPRATROPIUM-ALBUTEROL 3 ML NEB INHALATION PRN ×2 (02:36→08:09)
[2018-10-03 05:16] LABS: Albumin 3.3 g/dL (3.5-5.0); Calcium 9.5 mg/dL (8.4-10.2); Total Bilirubin 0.5 mg/dL (0.2-1.3); Total Protein 5.9 g/dL (6.3-8.2)
[2018-10-03 05:22] LABS: HCT 39.5 % (34.0-46.0); HGB 12.6 gm/dL (11.4-16.0); MCHC 31.9 g/dL (31.0-37.0); MCV 94.2 fL (80.0-100.0); Mean Platelet Volume 6.6; Platelet Count 173 k/uL (150-450); RBC 4.19 m/uL (3.80-5.40); WBC 9.8 k/uL (3.8-10.6)
[2018-10-03 05:36] LABS: Creatine Kinase 86 U/L (30-135); Creatine Kinase MB 1.4 ng/mL (0.0-2.4); Troponin I <0.012 ng/mL (0.000-0.034)
[2018-10-03] MEDS ORDERED: methylPREDNISolone SOD SUCCI 40 MG/ML 1 ML VIAL IV SCH (06:00)
[2018-10-03 06:25] LABS: Glucose,Whole Blood 273 mg/dL (75-99)
[2018-10-03] MEDS: PANTOPRAZOLE 40 MG TABLET PO SCH ×2 (07:17→17:28)
[2018-10-03 07:19] LABS: Basophils % (A) 0 %; Eosinophils % (A) 0 %; HCT 40.2 % (34.0-46.0); HGB 12.5 gm/dL (11.4-16.0); Lymphocytes # (A) 0.9 k/uL (1.0-4.8); Lymphocytes % (A) 9 %; MCH 29.8 pg (25.0-35.0); MCHC 31.2 g/dL (31.0-37.0); MCV 95.5 fL (80.0-100.0); Monocytes # (A) 0.3 k/uL (0-1.0); Monocytes % (A) 4 %; Neutrophils # (A) 8.4 k/uL (1.3-7.7); Neutrophils % (A) 86 %; Platelet Count 197 k/uL (150-450); RBC 4.21 m/uL (3.80-5.40); WBC 9.7 k/uL (3.8-10.6)
[2018-10-03] MEDS: INSULIN ASPART 100 UNIT/ML 1 ML 10 ML VIAL SQ SCH ×4 (07:21→21:48)
[2018-10-03 07:39] LABS: Calcium 9.6 mg/dL (8.4-10.2); Potassium 4.4 mmol/L (3.5-5.1)
[2018-10-03] MEDS: LISINOPRIL 10 MG TAB PO SCH (08:04)
[2018-10-03] MEDS: ACETAMINOPHEN TAB 325 MG TAB PO PRN ×2 (08:04→15:41)
[2018-10-03] MEDS: ALLOPURINOL 100 MG TAB PO SCH (08:04)
[2018-10-03] MEDS: ASPIRIN 81 MG PO SCH (08:04)
[2018-10-03] MEDS: CALCITRIOL 0.25 MCG CAP PO SCH (08:04)
[2018-10-03] MEDS: AZITHROMYCIN 500 MG TAB PO SCH (08:56)
[2018-10-03] MEDS ORDERED: CALCIUM CARBONATE 500 MG CHEWABLE PO SCH (09:00)
--- NOTE | 2018-10-03 11:21 | P.CNPUL ---
History of Present Illness Consult date: 10/03/18 Requesting physician: Gabriella Jacques Reason for consult: dyspnea, cough Chief complaint: Shortness of breath, new onset seizure History of present illness: This is a 58-year-old white female patient with past medical history of chronic myasthenia gravis, hypertension, diabetes mellitus type 2, morbid obesity, CKD III who was brought into the emergency department by her family yesterday on 10/02/2018 for evaluation patient's complaint of extreme vertigo, on the way to the hospital patient had a tonic-clonic seizure, with loss of consciousness, lasting several minutes. When she stopped seizing, patient was lethargic, postictal. Patient states her symptoms started yesterday, she woke up, she felt short of breath, she got up and started experiencing severe vertigo. Most recently she had been treated for bronchitis for 3-4 weeks but her PCP Dr. Salazar, with Biaxin, Depo-Medrol, Medrol Dosepak, and Tessalon Perles with no significant improvement. Patient was taken off her CellCept by her treating neurologist, Dr. Schmidt for concern of immunosuppression and ongoing symptoms of bronchitis. Patient was seen by Dr. Boyd for an outpatient sleep study, and the results are not available to us yet, she had a PFT done in the office which showed a FEV1 of 1.9 L or 77% of predicted, with a diffusion capacity of 74%. Patient is a former smoker, she quit smoking 24 years ago, but prior to that smoked a pack a day for 22 years. Chest x-ray was completed and showed a borderline to mild cardiomegaly and mild diffuse interstitial prominence is a chronic appearance. No consolidation or pleural effusion. Brain CT showed no acute intracranial abnormality, new mild chronic ethmoid and maxillary sinus disease. Labs showed white count of 9.8, hemoglobin of 12.6, electrolytes and renal profile were unremarkable, on admission plasma lactic acid was 2.1, AST was 44, ALT was 56, troponin was negative 1, proBNP was within normal limits at 48, influenza screen was negative. Patient denied any fever or chills, she is complaining of a severe headache. She has a harsh bronchospastic congested cough, there has been no recurrence of seizure activity since the patient was admitted to the hospital. Review of Systems All systems: negative Constitutional: Reports chronic headaches, Denies chills, Denies fever Eyes: denies blurred vision, denies pain Ears, nose, mouth and throat: Denies headache, Denies sore throat Cardiovascular: Denies chest pain, Denies shortness of breath Respiratory: Reports congestion, Reports cough with sputum, Reports dyspnea, Denies cough Gastrointestinal: Denies abdominal pain, Denies diarrhea, Denies nausea, Denies vomiting Genitourinary: Denies dysuria, Denies hematuria Musculoskeletal: Denies myalgias Integumentary: Denies pruritus, Denies rash Neurological: Denies numbness, Denies weakness Psychiatric: Denies anxiety, Denies depression Endocrine: Denies fatigue, Denies weight change Past Medical History Past Medical History: Diabetes Mellitus, GERD/Reflux, Hypertension, Renal Disease Additional Past Medical History / Comment(s): Morbid obesity with a BMI of 42.9 , gout, hypertension, diabetes mellitus, myasthenia gravis, pt. currently being tested for rheumatoid arthritis History of Any Multi-Drug Resistant Organisms: MRSA Date of last positivie culture/infection: 2013 MDRO Source:: eye Past Surgical History: Adenoidectomy, Section, Cholecystectomy, Hysterectomy, Tonsillectomy Additional Past Surgical History / Comment(s): laser eye sx for glaucoma. at times gets dizzy when up. Past Anesthesia/Blood Transfusion Reactions: Motion Sickness, Postoperative Nausea & Vomiting (PONV) Additional Past Anesthesia/Blood Transfusion Reaction / Comment(s): clausterphobia Past Psychological History: Anxiety Additional Psychological History / Comment(s): lives alone in apt. drives, pt. states her son lives in the building next door, has glucometer. Smoking Status: Former smoker Past Alcohol Use History: None Reported Additional Past Alcohol Use History / Comment(s): started smoking at age 14(1973 ) and quit 1993 smoked 1.5 ppd Past Drug Use History: None Reported - Past Family History Father Family Medical History: Cancer, COPD Additional Family Medical History / Comment(s): ashd, amputations d/t vascular dz, skin cancer, gout, Mother Family Medical History: Asthma, Chest Pain / Angina, Congestive Heart Failure ( CHF), Dementia, Diabetes Mellitus, Hypertension, Osteoarthritis (OA) Additional Family Medical History / Comment(s): glaucoma,gout, neuropathy Medications and Allergies Home Medications Medication Instructions Recorded Confirmed Type Allopurinol [Zyloprim] 50 mg PO DAILY 09/28/15 10/03/18 History Aspirin 81 mg PO DAILY 09/28/15 10/03/18 History Insulin Glargine [Lantus] 50 unit SQ HS 09/28/15 10/03/18 History Lisinopril [Prinivil] 10 mg PO DAILY 09/28/15 10/03/18 History Omeprazole [PriLOSEC] 20 mg PO AC-BID 09/28/15 10/03/18 History Topiramate [Topamax] 50 mg PO BID 09/28/15 10/03/18 History metFORMIN HCL 1,000 mg PO BID 09/28/15 10/03/18 History Calcium Carbonate [Tums] 500 mg PO DAILY 02/24/18 10/03/18 History Insulin Aspart [NovoLOG Flexpen] See Protocol SQ ACHS 02/24/18 10/03/18 History Carvedilol [Coreg] 6.25 mg PO BID 06/25/18 10/03/18 History Amitriptyline HCl [Elavil] 10 - 20 mg PO HS PRN 10/03/18 10/03/18 History Butalb/Acetaminophen/Caffeine 1 tab PO Q6HR PRN 10/03/18 10/03/18 History [Fioricet 50-300-40 mg Capsule] Calcitriol 0.25 mcg PO DAILY 10/03/18 10/03/18 History Ondansetron HCl [Zofran] 8 mg PO Q6HR PRN 10/03/18 10/03/18 History Allergies Allergy/AdvReac Type Severity Reaction Status Date / Time aspartame Allergy Unknown Verified 10/03/18 09:31 [From Nutrasweet Aspartame] ciprofloxacin Allergy Unknown Verified 10/03/18 09:31 Penicillins Allergy Unknown Verified 10/03/18 09:31 Sulfa (Sulfonamide Allergy Unknown Verified 10/03/18 09:31 Antibiotics) levofloxacin [From Levaquin] AdvReac Severe Unknown Verified 10/03/18 09:31 Physical Exam Vitals: Vital Signs Temp Pulse Pulse Resp BP Pulse Ox 10/03/18 08:27 108 H 10/03/18 08:09 104 H 10/03/18 08:00 104 H 18 10/03/18 07:57 97.8 F 104 H 18 150/83 97 10/03/18 04:10 97.6 F 94 19 131/75 96 10/03/18 02:44 110 H 10/03/18 02:38 108 H 10/03/18 00:00 111 H 20 10/02/18 23:30 97.8 F 107 H 19 125/80 97 Intake and Output 10/02/18 10/03/18 10/03/18 22:59 06:59 14:59 Intake Total 60 Balance 60 Intake: Oral 60 Other: Voiding Method Toilet Weight 247.3 kg GENERAL EXAM: Alert, pleasant, 58-year-old obese white female comfortable in no apparent distress. HEAD: Normocephalic/atraumatic. EYES: Normal reaction of pupils, equal size. Conjunctiva pink, sclera white. NOSE: Clear with pink turbinates. THROAT: No erythema or exudates. NECK: No masses, no JVD, no thyroid enlargement, no adenopathy. CHEST: No chest wall deformity. Symmetrical expansion. LUNGS: Equal air entry with scattered wheezes, rhonchi, patient has a cough characteristic of tracheobronchomalacia CVS: Regular rate and rhythm, normal S1 and S2, no gallops, no murmurs, no rubs ABDOMEN: Soft, nontender. No hepatosplenomegaly, normal bowel sounds, no guarding or rigidity. EXTREMITIES: No clubbing, no edema, no cyanosis, 2+ pulses and upper and lower extremities. MUSCULOSKELETAL: Muscle strength and tone normal. SPINE: No scoliosis or deformity SKIN: No rashes CENTRAL NERVOUS SYSTEM: Alert and oriented -3. No focal deficits, tone is normal in all 4 extremities. PSYCHIATRIC: Alert and oriented -3. Appropriate affect. Intact judgment and insight. Results - Laboratory Findings CBC and BMP: 10/03/18 05:51 10/03/18 05:51 Abnormal lab findings: Abnormal Labs 10/02/18 10/02/18 10/03/18 16:45 16:45 05:51 Neutrophils # 8.4 H Lymphocytes # 0.9 L BUN 22 H Glucose 123 H POC Glucose (mg/dL) Plasma Lactic Acid Chaka 2.1 H* AST 44 H ALT 56 H Total Protein 5.9 L Albumin 3.3 L 10/03/18 10/03/18 05:51 06:23 Neutrophils # Lymphocytes # BUN 21 H Glucose 289 H POC Glucose (mg/dL) 273 H Plasma Lactic Acid Chaka AST ALT Total Protein Albumin - Diagnostic Findings Chest x-ray: report reviewed, image reviewed Additional studies: Results of the brain CT and EKG were reviewed Assessment and Plan Plan: Assessment: #1. Acute tracheobronchitis, with failure of outpatient treatment. Patient had a PFT in the pulmonary clinic which showed FEV1 of 1.9 L or 77% predicted, with FVC of 2.28 L or 73% of predicted, and diffusion capacity of 74% predicted. This was consistent with minimal obstructive airways disease, with no significant reversibility after administration of bronchodilators, ruling out asthma. Chest x-ray showed no definite acute process. #2. Seizure today, CT brain showed no acute intracranial abnormality. #3. Vertigo #4. Tracheobronchomalacia #5. Suspected underlying sleep apnea syndrome, underwent outpatient PSG, his ulcer unavailable to us at this time #6. Myasthenia gravis, and patient has adverse reaction to Mestinon and periodic steroids. Had been maintained on CellCept, was recently discontinued by the treating neurologist Dr. Schmidt #7. Morbid obesity #8 Hypertension #9. Diabetes mellitus #10. Gout #11. Previous history of MRSA infection in her eye #12. History of cervical cephalgia #13. Suspected aspiration was ruled out by a negative barium swallow #14. Remote episode of seizure activity in response to NutraSweet, patient did not require maintenance antiepileptic medications Plan: We'll add Zithromax, nebulized bronchodilators, IV Solu-Medrol. Chest x-ray did not show any acute process. Patient is unable to clear any sputum. Influenza screen was negative, there has been no recurrence of seizures. Head CT showed no acute findings. She has a persistent severe headache, and mild vertigo. No fever or chills, she is on room air, maintaining good oxygenation. We'll continue to follow I performed a history & physical examination of the patient and discussed their management with my nurse practitioner, Deja Munoz. I reviewed the nurse practitioner's note and agree with the documented findings and plan of care. Lung sounds are positive for diffuse rhonchi and wheezing. The findings and the impression was discussed with the patient. I attest to the documentation by the nurse practitioner. Time with Patient: Greater than 30
[2018-10-03 11:36] LABS: Glucose,Whole Blood 287 mg/dL (75-99)
[2018-10-03] MEDS: IPRATROPIUM-ALBUTEROL 3 ML NEB INHALATION SCH ×3 (11:50→19:43)
[2018-10-03] MEDS ORDERED: methylPREDNISolone SOD SUCCI 125 MG/2 ML VIAL IV SCH (12:00)
[2018-10-03 15:53] LABS: Glucose,Whole Blood 267 mg/dL (75-99)
[2018-10-03] MEDS: methylPREDNISolone SOD SUCCI 40 MG/ML 1 ML VIAL IV SCH (17:28)
[2018-10-03] MEDS ORDERED: ONDANSETRON 4 MG TAB PO PRN (19:33)
[2018-10-03] MEDS ORDERED: NALOXONE 0.4 MG/ML 1 ML VIAL IV PRN (19:38)
[2018-10-03] MEDS: BUDESONIDE 1 MG/2 ML NEBU INHALATION SCH (19:48)
[2018-10-03 20:04] LABS: Glucose,Whole Blood 322 mg/dL (75-99)
--- NOTE | 2018-10-03 20:40 | HP ---
HISTORY AND PHYSICAL DATE OF ADMISSION: October 02, 2018 DATE OF SERVICE: October 03, 2018 PRESENTING COMPLAINT: Questionable seizure activity. HISTORY OF PRESENTING COMPLAINT: This is a pleasant 58-year-old patient of Dr. Salazar. Chronic stable medical conditions include myasthenia gravis, hypertension, diabetes, GERD, gout, migraines. The patient was seen by Dr. Schmidt for myasthenia gravis. Because of recent bronchitis persisting for quite over a month, he did stop patient's CellCept. The patient has bronchitis like symptoms for a month, short of breath, cough, not getting better. He presented yesterday evening after the room was spinning. Decided to come to the ER. She was loaded into the car by her son. Body was shaking. She was making weird noises, not making sense and she had a similar episode in the ER. The patient does not remember this episode. Has not had seizures before. Denies any head injury. Has a history of migraines. The patient is admitted to my colleague, Dr. Jacques who then handed over this patient to me this afternoon. The patient was earlier seen by Pulmonary. REVIEW OF SYSTEMS: CONSTITUTIONAL: Tired. HEENT some nasal stuffiness. RESPIRATORY: Cough. CARDIOVASCULAR: None. GASTROINTESTINAL: Heartburn. GENITOURINARY: None. MUSCULOSKELETAL none. DERMATOLOGICAL, HEMATOLOGIC, LYMPHATIC: none. PSYCHIATRY none. NEUROLOGICAL as above. PAST MEDICAL HISTORY: Diabetes mellitus type 2, GERD, hypertension, kidney disease, morbid obesity, gout, hypertension, diabetes mellitus type 2, myasthenia gravis. The patient is being worked up for rheumatoid arthritis. PAST SURGICAL HISTORY: Adenoidectomy, , cholecystectomy, hysterectomy, tonsillectomy, laser eye surgery for glaucoma. PSYCH HISTORY: Anxiety. SOCIAL HISTORY: Lives by herself. Smoked a pack and half a day for 20 years. Stopped in 1993. No alcohol. FAMILY HISTORY: COPD, coronary artery disease, gout. HOME MEDICATIONS: 1. Metformin 1000 mg b.i.d. 2. Topamax 50 mg b.i.d. 3. Zofran 8 mg q.6h p.r.n. 4. Prilosec 20 mg b.i.d. 5. Prinivil 10 mg p.o. daily. 6. Lantus 15 units subcu q.h.s. 7. NovoLog FlexPen. 8. Coreg 6.25 b.i.d. 9. Tums 500 mg. 10.Calcitriol 0.25 mcg p.o. daily. 11.Fioricet 1 tablet q.6 p.r.n. 12.Aspirin 81 mg p.o. daily. 13.Elavil 10-20 mg q.h.s. p.r.n. 14.Allopurinol 50 mg p.o. daily. ALLERGIES: TO ASPARTAME, CIPRO, PENICILLIN, SULFA, LEVAQUIN. PHYSICAL EXAMINATION: VITAL SIGNS: Temperature 97.8 ,pulse 104, respiratory 18, blood pressure 150/83, pulse ox 97% on room air. GENERAL APPEARANCE: Well-built, BMI is sitting up, tired appearing. EYES: Pupils equal. Conjunctivae normal. HEENT external appearance of nose and ears normal. Oral cavity normal. NECK: JVD not raised. RESPIRATORY effort normal. LUNGS: Decreased breath sounds. Mild wheezing. CARDIOVASCULAR: 1st and 2nd sounds normal. No edema. ABDOMEN: Soft, nontender. Liver and spleen not palpable. LYMPHATICS: No lymph nodes palpable in the neck and axilla. PSYCHIATRY: Alert and oriented x3. Mood and affect normal. NEUROLOGICAL: Pupils equal. Cranial nerves grossly intact. Power and sensation grossly intact. INVESTIGATIONS: Investigations reviewed in the clinical context. White count 9.7, hemoglobin 12.5, potassium 4.4. Accu-Cheks 289, 273. Influenza A and B negative. EKG tracing personally reviewed by me shows normal sinus rhythm. Chest x-ray reported to be negative. CT scan of the brain nil acute. Some ethmoid and maxillary sinus disease. ASSESSMENT: 1. The patient is reported to have an episode of body shaking, making weird noises. Patient is not aware of both the episode most likely seizures. Second episode did occur in the ER. The patient has no prior history of the same. No head injury. I will at this point start the patient on Keppra 500 mg twice a day. The patient does realize there is no neurologist available in the hospital. I did talk to her that in case she had further episodes, she will have to be moved to [facility]. Otherwise, we will put her on some medications and have her follow up with Dr. Schmidt, her neurologist. 2. Acute bronchitis, likely viral that can often times linger on for some time. 3. Myasthenia gravis currently off medication. 4. Essential hypertension. 5. Diabetes mellitus type 2, chronically on insulin. 6. Gastroesophageal reflux disease. 7. Chronic gout. 8. Morbid obesity BMI more than 40. PLAN: Patient is put on bronchodilators ,IV Solu-Medrol. Home medications are resumed. Accu- Cheks will be closely followed. We will also add Claritin-D for decongestion. The patient also be started on Keppra 500 mg twice a day. Neuro checks will be done with seizure precautions. We will order a CT angio of the brain in the morning. Lovenox for DVT prophylaxis. Care was discussed with the patient. Questions were answered. Copy to Dr. Salazar. MIKE / LINDA: [id number] /
[2018-10-03] MEDS ORDERED: MELATONIN 3 MG TABLET PO PRN (21:00)
[2018-10-03] MEDS ORDERED: levETIRAcetam 500 MG TAB PO SCH (21:00)
[2018-10-03] MEDS: LORATADINE-PSEUDOEPH 5-120 MG 1 EACH TAB.ER.12H PO SCH (21:49)
[2018-10-03] MEDS: levETIRAcetam IV 1,000 MG in SALINE 1 100ML.BAG IVPB SCH (21:49)
[2018-10-03] MEDS: metFORMIN 500 MG TAB PO SCH (21:49)
[2018-10-03] MEDS: ENOXAPARIN 40 MG/0.4 ML SYRINGE SQ SCH (21:58)
[2018-10-04] MEDS: CALCIUM CARBONATE 500 MG CHEWABLE PO PRN ×2 (00:24→06:33)
[2018-10-04] MEDS: methylPREDNISolone SOD SUCCI 40 MG/ML 1 ML VIAL IV SCH ×4 (00:24→23:28)
[2018-10-04] MEDS: ACETAMINOPHEN TAB 325 MG TAB PO PRN ×2 (00:25→08:25)
[2018-10-04] MEDS: guaiFENesin-DM 100-10MG/5ML 10 ML CUP PO PRN ×4 (05:10→23:30)
[2018-10-04 06:26] LABS: Glucose,Whole Blood 259 mg/dL (75-99)
[2018-10-04] MEDS: PANTOPRAZOLE 40 MG TABLET PO SCH ×2 (06:30→17:19)
[2018-10-04] MEDS: INSULIN ASPART 100 UNIT/ML 1 ML 10 ML VIAL SQ SCH ×6 (06:30→21:13)
[2018-10-04] MEDS: IPRATROPIUM-ALBUTEROL 3 ML NEB INHALATION SCH ×4 (07:13→19:19)
[2018-10-04] MEDS: BUDESONIDE 1 MG/2 ML NEBU INHALATION SCH ×2 (07:14→19:19)
[2018-10-04] MEDS: AZITHROMYCIN 500 MG TAB PO SCH (08:21)
[2018-10-04] MEDS: ENOXAPARIN 40 MG/0.4 ML SYRINGE SQ SCH (08:21)
[2018-10-04] MEDS: CARVEDILOL 6.25 MG TAB PO SCH ×2 (08:21→20:48)
[2018-10-04] MEDS: CALCITRIOL 0.25 MCG CAP PO SCH (08:21)
[2018-10-04] MEDS: ASPIRIN 81 MG PO SCH (08:21)
[2018-10-04] MEDS: ALLOPURINOL 100 MG TAB PO SCH (08:21)
[2018-10-04] MEDS: metFORMIN 500 MG TAB PO SCH ×3 (08:22→20:51)
[2018-10-04] MEDS: TOPIRAMATE 25 MG TAB PO SCH ×2 (08:22→20:48)
[2018-10-04] MEDS: LISINOPRIL 10 MG TAB PO SCH (08:22)
[2018-10-04] MEDS: levETIRAcetam IV 1,000 MG in SALINE 1 100ML.BAG IVPB SCH (08:22)
[2018-10-04] MEDS: LORATADINE-PSEUDOEPH 5-120 MG 1 EACH TAB.ER.12H PO SCH ×2 (08:22→21:14)
[2018-10-04 08:34] LABS: Glucose,Whole Blood 405 mg/dL (75-99)
[2018-10-04 08:35] LABS: Glucose,Whole Blood 244 mg/dL (75-99)
--- NOTE | 2018-10-04 08:46 | CT ---
EXAMINATION TYPE: CT angio head DATE OF EXAM: 10/04/2018 COMPARISON: CT brain 10/02/2018 HISTORY: 58-year-old female New onset seizures TECHNIQUE: Contiguous axial scanning of the head performed without and with IV Contrast, patient inje cted with 100 mL of Isovue 370. Coronal/sagittal reconstructions performed. 3-D reconstructions gener ated on a dedicated independent workstation. CT DLP: 2491.9 mGycm Automated exposure control for dose reduction was used. FINDINGS: No evidence for acute intracranial hemorrhage, acute ischemic change, mass, mass effect, midline shif t, or extra-axial fluid collection. No hydrocephalus. No effacement of cerebral sulci or basal subara chnoid cisterns. Encinas-white matter differentiation is maintained. Mild mucosal thickening floor of the right maxillary sinus. Improving aeration within the ethmoid air cells. Mastoid air cells well pneumatized. Orbits and globes appear intact. Angiography: The vertebral and basilar arteries as well as the bilateral internal carotid arteries are patent with out significant stenosis or occlusion. The posterior circulation is uniformly small in caliber. Both anterior and posterior circulations are also grossly patent. No aneurysmal change seen. Dual venous sinuses are patent. IMPRESSION: 1. NO ACUTE INTRACRANIAL ABNORMAL SEEN. IMPROVING ETHMOID SINUS DISEASE. RESIDUAL MILD RIGHT MAXILLAR Y SINUS DISEASE. 2. THE POSTERIOR CIRCULATION IS SOMEWHAT SMALL IN CALIBER. THIS MAY BE NORMAL VARIATION FOR THE PATIE NT. CORRELATE FOR ANY CHRONIC SYMPTOMS OF VERTEBROBASILAR INSUFFICIENCY. OTHERWISE, NO SPECIFIC ABNOR MALITY ON CT ANGIOGRAPHY OF THE [place].
[2018-10-04 12:15] LABS: Glucose,Whole Blood 221 mg/dL (75-99)
[2018-10-04 15:31] VITALS: BMI 45.4
[2018-10-04] MEDS: BUTALB/APAP/CAFF 50-325-40MG TAB PO PRN ×2 (15:51→23:30)
[2018-10-04 17:14] LABS: Glucose,Whole Blood 185 mg/dL (75-99)
[2018-10-04 20:31] LABS: Glucose,Whole Blood 243 mg/dL (75-99)
[2018-10-04] MEDS: levETIRAcetam 500 MG TAB PO SCH (20:48)
[2018-10-04] MEDS: INSULIN DETEMIR 100 UNIT/ML 10 ML VIAL SQ SCH (21:13)
--- NOTE | 2018-10-05 03:17 | PN ---
PROGRESS NOTE DATE OF SERVICE: October 04, 2018. PRESENTING COMPLAINT: Cough, short of breath. INTERVAL HISTORY: This patient presented with seizure activity, started on IV Keppra. The patient has had no further episodes after the IV Keppra was started. The patient is still a bit congested in the chest, cough, though feels a bit better. She is moving better. Air in the lungs. REVIEW OF SYSTEMS: Done for constitutional, cardiovascular, GI, pulmonary and relevant findings as above. CURRENT MEDICATIONS: Reviewed that include DuoNeb, IV Solu-Medrol. PHYSICAL EXAMINATION: VITAL SIGNS: Temperature 98.2, pulse 104, respiration 18, blood pressure 114/70, pulse ox 99% on 2 L. GENERAL APPEARANCE: Sitting up, awake. EYES: Pupils equal. Conjunctivae normal. HEENT oral cavity shows white jaures in the pharynx. NECK: JVD not raised. Mass not palpable. RESPIRATORY: Effort increased LUNGS: Decreased breath sounds. Some expiratory wheezing. CARDIOVASCULAR: 1st and 2nd sounds normal. No edema. ABDOMEN: Soft, nontender. Liver and spleen not palpable. PSYCHIATRY: Alert and oriented x3. Mood and affect normal. INVESTIGATIONS: Accu-Cheks are noted. ASSESSMENT: 1. New onset seizures. The patient is started on IV Keppra 1000 mg twice a day. No further episodes since then. 2. Acute bronchitis, likely viral. 3. Myasthenia gravis, currently off medications. 4. Essential hypertension. 5. Diabetes mellitus type 2, chronically on insulin, uncontrolled from steroids. 6. Gastroesophageal reflux disease. 7. Chronic gout. 8. Morbid obesity BMI of more than 40. 9. Oropharyngeal candidiasis. PLAN: Patient is started on Diflucan. Other medication and treatment plan is to continue. Patient told to do salt warm water gargles. Continue with Keppra. Did discussed with the patient that in case she had more seizures, then we will transfer her. Otherwise if she is controlled, she can then follow up with Dr. Schmidt, her neurologist as an outpatient. Patient agreeable to the same. Meantime, Diflucan has been added. Also being followed by Pulmonary. MMODL / IJN: [id number] /
[2018-10-05 05:37] LABS: Glucose,Whole Blood 283 mg/dL (75-99)
[2018-10-05] MEDS: BUTALB/APAP/CAFF 50-325-40MG TAB PO PRN ×3 (06:52→18:31)
[2018-10-05] MEDS: PANTOPRAZOLE 40 MG TABLET PO SCH ×2 (06:52→17:37)
[2018-10-05] MEDS: guaiFENesin-DM 100-10MG/5ML 10 ML CUP PO PRN ×2 (06:52→18:31)
[2018-10-05] MEDS: INSULIN ASPART 100 UNIT/ML 1 ML 10 ML VIAL SQ SCH ×7 (06:53→21:00)
[2018-10-05] MEDS ORDERED: FLUCONAZOLE 100 MG TAB PO ONE (08:00)
[2018-10-05] MEDS: BUDESONIDE 1 MG/2 ML NEBU INHALATION SCH ×2 (08:20→21:22)
[2018-10-05] MEDS: IPRATROPIUM-ALBUTEROL 3 ML NEB INHALATION SCH ×4 (08:20→21:22)
[2018-10-05] MEDS: methylPREDNISolone SOD SUCCI 40 MG/ML 1 ML VIAL IV SCH ×2 (08:43→16:05)
[2018-10-05] MEDS: CARVEDILOL 6.25 MG TAB PO SCH ×2 (08:46→20:59)
[2018-10-05] MEDS: TOPIRAMATE 25 MG TAB PO SCH ×2 (08:46→21:00)
[2018-10-05] MEDS: ALLOPURINOL 100 MG TAB PO SCH (08:46)
[2018-10-05] MEDS: levETIRAcetam 500 MG TAB PO SCH ×2 (08:46→21:00)
[2018-10-05] MEDS: CALCITRIOL 0.25 MCG CAP PO SCH (08:46)
[2018-10-05] MEDS: LISINOPRIL 10 MG TAB PO SCH (08:46)
[2018-10-05] MEDS: metFORMIN 500 MG TAB PO SCH ×2 (08:46→21:00)
[2018-10-05] MEDS: AZITHROMYCIN 500 MG TAB PO SCH (08:46)
[2018-10-05] MEDS: ASPIRIN 81 MG PO SCH (08:46)
[2018-10-05] MEDS: ENOXAPARIN 40 MG/0.4 ML SYRINGE SQ SCH (08:47)
[2018-10-05] MEDS: LORATADINE-PSEUDOEPH 5-120 MG 1 EACH TAB.ER.12H PO SCH ×2 (08:47→21:00)
[2018-10-05 12:02] LABS: Glucose,Whole Blood 127 mg/dL (75-99)
--- NOTE | 2018-10-05 13:46 | P.PN ---
Subjective Progress Note Date: 10/05/18 Principal diagnosis: Shortness of breath, new onset seizure This is a 58-year-old white female patient with past medical history of chronic myasthenia gravis, hypertension, diabetes mellitus type 2, morbid obesity, CKD III who was brought into the emergency department by her family yesterday on 10/02/2018 for evaluation patient's complaint of extreme vertigo, on the way to the hospital patient had a tonic-clonic seizure, with loss of consciousness, lasting several minutes. When she stopped seizing, patient was lethargic, postictal. Patient states her symptoms started yesterday, she woke up, she felt short of breath, she got up and started experiencing severe vertigo. Most recently she had been treated for bronchitis for 3-4 weeks but her PCP Dr. Salazar, with Biaxin, Depo-Medrol, Medrol Dosepak, and Tessalon Perles with no significant improvement. Patient was taken off her CellCept by her treating neurologist, Dr. Schmidt for concern of immunosuppression and ongoing symptoms of bronchitis. Patient was seen by Dr. Boyd for an outpatient sleep study, and the results are not available to us yet, she had a PFT done in the office which showed a FEV1 of 1.9 L or 77% of predicted, with a diffusion capacity of 74%. Patient is a former smoker, she quit smoking 24 years ago, but prior to that smoked a pack a day for 22 years. Chest x-ray was completed and showed a borderline to mild cardiomegaly and mild diffuse interstitial prominence is a chronic appearance. No consolidation or pleural effusion. Brain CT showed no acute intracranial abnormality, new mild chronic ethmoid and maxillary sinus disease. Labs showed white count of 9.8, hemoglobin of 12.6, electrolytes and renal profile were unremarkable, on admission plasma lactic acid was 2.1, AST was 44, ALT was 56, troponin was negative 1, proBNP was within normal limits at 48, influenza screen was negative. Patient denied any fever or chills, she is complaining of a severe headache. She has a harsh bronchospastic congested cough, there has been no recurrence of seizure activity since the patient was admitted to the hospital. The patient is seen today 10/05/2017 in follow-up on the selective care unit. She is currently sitting up in a chair at the bedside. Awake and alert in no acute distress. She is maintaining O2 saturations in the 90s on room air. She' s been afebrile. Hemodynamically stable. Blood culture reveals no growth to date. She has been treated with empiric antibiotics, IV Solu-Medrol, bronchodilators for acute tracheobronchitis. Chest x-ray showed no acute pulmonary process. Computed tomography scan of the brain showed no acute abnormality following seizure activity yesterday. Objective - Vital Signs Vital signs: Vital Signs Temp 97.8 F 10/05/18 11:52 Pulse 84 10/05/18 11:52 Resp 20 10/05/18 11:52 BP 120/79 10/05/18 11:52 Pulse Ox 93 L 10/05/18 11:52 Intake & Output 10/04/18 10/05/18 10/05/18 18:59 06:59 18:59 Intake Total 180 Balance 180 Weight 112.7 kg 113.5 kg Intake: Oral 180 Other: Voiding Method Toilet # Voids 1 2 - Exam GENERAL EXAM: Alert, pleasant, 58-year-old obese female comfortable in no apparent distress. On room air. HEAD: Normocephalic/atraumatic. EYES: Normal reaction of pupils, equal size. Conjunctiva pink, sclera white. NOSE: Clear with pink turbinates. THROAT: No erythema or exudates. NECK: No masses, no JVD, no thyroid enlargement, no adenopathy. CHEST: No chest wall deformity. Symmetrical expansion. LUNGS: Equal air entry with scattered wheezes, rhonchi, patient has a cough characteristic of tracheobronchomalacia CVS: Regular rate and rhythm, normal S1 and S2, no gallops, no murmurs, no rubs ABDOMEN: Soft, nontender. No hepatosplenomegaly, normal bowel sounds, no guarding or rigidity. EXTREMITIES: No clubbing, no edema, no cyanosis, 2+ pulses and upper and lower extremities. MUSCULOSKELETAL: Muscle strength and tone normal. SPINE: No scoliosis or deformity SKIN: No rashes CENTRAL NERVOUS SYSTEM: Alert and oriented -3. No focal deficits, tone is normal in all 4 extremities. PSYCHIATRIC: Alert and oriented -3. Appropriate affect. Intact judgment and insight. - Labs CBC & Chem 7: 10/03/18 05:51 10/03/18 05:51 Labs: Abnormal Lab Results - Last 24 Hours (Table) 10/04/18 10/04/18 10/05/18 Range/Units 16:55 20:29 05:35 POC Glucose (mg/dL) 185 H 243 H 283 H (75-99) mg/dL 10/05/18 Range/Units 11:49 POC Glucose (mg/dL) 127 H (75-99) mg/dL Microbiology - Last 24 Hours (Table) 10/02/18 16:45 Blood Culture - Preliminary Blood No Growth after 48 hours Assessment and Plan Assessment: Assessment: #1. Acute tracheobronchitis, with failure of outpatient treatment. Patient had a PFT in the pulmonary clinic which showed FEV1 of 1.9 L or 77% predicted, with FVC of 2.28 L or 73% of predicted, and diffusion capacity of 74% predicted. This was consistent with minimal obstructive airways disease, with no significant reversibility after administration of bronchodilators, ruling out asthma. Chest x-ray showed no definite acute process. #2. Seizure today, CT brain showed no acute intracranial abnormality. #3. Vertigo #4. Tracheobronchomalacia #5. Obstructive sleep apnea syndrome, underwent outpatient PSG, AHI of 26. Nocturnal desaturations noted. She was initiated on BiPAP therapy at a pressure of 15/11 cm of water. Small AirFit P10 nose pillow. #6. Myasthenia gravis, and patient has adverse reaction to Mestinon and periodic steroids. Had been maintained on CellCept, was recently discontinued by the treating neurologist Dr. Schmidt #7. Morbid obesity #8 Hypertension #9. Diabetes mellitus #10. Gout #11. Previous history of MRSA infection in her eye #12. History of cervical cephalgia #13. Suspected aspiration was ruled out by a negative barium swallow #14. Remote episode of seizure activity in response to NutraSweet, patient did not require maintenance antiepileptic medications Plan: The patient was seen and evaluated by Dr. Hawthorne. She is currently stable from the pulmonary standpoint. We'll continue with her current treatment plan. We' ll increase her activity as tolerated. We'll continue to follow and make further recommendations based on her clinical status. I, the cosigning physician, performed a history & physical examination of the patient. Lungs sounds with few scattered rhonchi bilaterally. Maintaining good O2 saturations in the 90s on room air. I discussed the assessment and plan of care with my nurse practitioner, Serena Ronquillo. I attest to the above note as dictated by her.
[2018-10-05] MEDS ORDERED: LACTULOSE 20 GM/30 ML CUP PO ONE (14:53)
[2018-10-05 16:37] LABS: Glucose,Whole Blood 160 mg/dL (75-99)
[2018-10-05] MEDS: CALCIUM CARBONATE 500 MG CHEWABLE PO PRN (17:41)
--- NOTE | 2018-10-05 17:47 | P.DS ---
Providers Date of admission: 10/02/18 21:28 Attending physician: Anthony Lopez Consults: 10/03/18 00:27 Consult Physician Routine Consulting Provider: Ryan Hawthorne Consult Reason/Comments: BRONCHITIS Do you want consulting provider notified?: Yes, Notify in am Placement Type Exists?: Yes Primary care physician: Stated None Hospital Course: I'm seeing this patient today as a follow-up for Dr. Lopez who was following the patient. 58-year-old female with a with a known history of myasthenia gravis came in with compensative short of breath found to be in COPD exacerbation patient was treated with the high-dose systemic steroids patient is still on IV steroids at 60 every 6 hourly along with azithromycin for bronchitis. Patient has extensive history of myasthenia gravis never tolerated neostigmine of physostigmine in the past, because of which patient was on CellCept because of her chronic bronchitis sepsis. Was subsequently discontinued. Patient apparently had a tonic-clonic seizure with a postictal phase and loss of consciousness without any loss of bowel or bladder continence which is a first episode of seizure CT angios the head and neck was opted yesterday which was did not show any significant abnormality. I dated the patient today patient is unable to open eyes because of I believe has myasthenic crisis which is frustrated by IV steroids and does have significant proximal muscle weakness. Although I do not believe patient has a respiratory muscle weakness at this time patient is definitely wheezing although not requiring any oxygen patient on exam has fernando face consistent with the chronic steroid use.patient feels more tired. Patient may need plasmapheresis because of which the patient will be transferred to [facility] hospitalist at [facility] accepted the patient and patient will be discharged to [facility] for higher level of care. Discussed extensively with his primary neurologist. Patient was also started on Keppra by a hospitalist here there is no EKG available at this time patient is presently getting thousand twice a day of Keppra Keppra levels are not available at this time. PHYSICAL EXAMINATION: GENERAL: The patient is alert and oriented x3, not in any acute distress. Well developed, well nourished. patient has fernando face obese probably secondary to systemic steroids chronic use HEENpatient is barely able to open her eyes patient has significant proximal muscle weakness No scleral icterus. No conjunctival pallor. Normocephalic, atraumatic. No pharyngeal erythema. No thyromegaly. CARDIOVASCULAR: S1 and S2 present. No murmurs, rubs, or gallops. PULMONARY:bilateral expiratory wheezing ABDOMEN: Soft, nontender, nondistended, normoactive bowel sounds. No palpable organomegaly. MUSCULOSKELETAL: No joint swelling or deformity. EXTREMITIES: No cyanosis, clubbing, or pedal edema. NEUROLOGICAL:proximal muscle weakness as mentioned above SKIN: No rashes. -COPD exacerbation fairly stable and improved now -New onset seizures -Myasthenic crisis possible and reason for transfer -Essential hypertension Hyperlipidemia diabetes mellitus -Gastroesophageal reflux disease patient does have odynophagia probably due to esophageal candidiasis for which patient is on flucanazole Plan - Discharge Summary Discharge Rx Participant: No New Discharge Prescriptions: No Action Insulin Glargine [Lantus] 50 unit SQ HS Topiramate [Topamax] 50 mg PO BID Omeprazole [PriLOSEC] 20 mg PO AC-BID Lisinopril [Prinivil] 10 mg PO DAILY Aspirin 81 mg PO DAILY metFORMIN HCL 1,000 mg PO BID Allopurinol [Zyloprim] 50 mg PO DAILY Calcium Carbonate [Tums] 500 mg PO DAILY Insulin Aspart [NovoLOG Flexpen] See Protocol SQ ACHS Carvedilol [Coreg] 6.25 mg PO BID Ondansetron HCl [Zofran] 8 mg PO Q6HR PRN PRN Reason: Nausea And Vomiting Butalb/Acetaminophen/Caffeine [Fioricet 50-300-40 mg Capsule] 1 tab PO Q6HR PRN PRN Reason: Headache Calcitriol 0.25 mcg PO DAILY Amitriptyline HCl [Elavil] 10 - 20 mg PO HS PRN PRN Reason: Insomnia Discharge Medication List Allopurinol [Zyloprim] 50 mg PO DAILY 09/28/15 [History] Aspirin 81 mg PO DAILY 09/28/15 [History] Insulin Glargine [Lantus] 50 unit SQ HS 09/28/15 [History] Lisinopril [Prinivil] 10 mg PO DAILY 09/28/15 [History] Omeprazole [PriLOSEC] 20 mg PO AC-BID 09/28/15 [History] Topiramate [Topamax] 50 mg PO BID 09/28/15 [History] metFORMIN HCL 1,000 mg PO BID 09/28/15 [History] Calcium Carbonate [Tums] 500 mg PO DAILY 02/24/18 [History] Insulin Aspart [NovoLOG Flexpen] See Protocol SQ ACHS 02/24/18 [History] Carvedilol [Coreg] 6.25 mg PO BID 06/25/18 [History] Amitriptyline HCl [Elavil] 10 - 20 mg PO HS PRN 10/03/18 [History] Butalb/Acetaminophen/Caffeine [Fioricet 50-300-40 mg Capsule] 1 tab PO Q6HR PRN 10/03/18 [History] Calcitriol 0.25 mcg PO DAILY 10/03/18 [History] Ondansetron HCl [Zofran] 8 mg PO Q6HR PRN 10/03/18 [History] Follow up Appointment(s)/Referral(s): None,Stated [Primary Care Provider] - 1 Week
[2018-10-05 20:56] LABS: Glucose,Whole Blood 158 mg/dL (75-99)
[2018-10-05] MEDS ORDERED: SENNOSIDES-DOCUSATE SODIUM 1 EACH TAB PO SCH (21:00)
[2018-10-05] MEDS: INSULIN DETEMIR 100 UNIT/ML 10 ML VIAL SQ SCH (21:00)
[2018-10-05 21:05] VITALS: BP 144/77; RESP 18; TEMP 98.1
[2018-10-05 21:38] VITALS: PULSE 84
[2018-10-06] MEDS ORDERED: FLUCONAZOLE 100 MG TAB PO SCH (09:00)
--- NOTE | 2018-10-06 15:58 | CDI ---
Documentation Clarification Form Date: 10/06/18 From: Beatriz Ryder Cherelle Bustamante, Rubbing Bed Operator Hours-8:30 am & 5 pm Edmund Admit Date: 10/02/2018 9:28:00 PM Patient Name: Marcy Rey Visit Number: [id number] Discharge Date: 10/05/2018 10:40:00 PM ATTENTION: The Clinical Documentation Specialists (CDI) and [facility] Coding Staff appreciate your assistance in clarifying documentation. Please respond to the clarification below the line at the bottom and electronically sign. The CDI & [facility] Coding staff will review the response and follow-up if needed. Please note: Queries are made part of the Legal Health Record. If you have any questions, please contact the author of this message via ITS. Dr. Carter Charles The patient presented with the following questionable seizure, recent bronchitis , myasthenia gravis. Per discharge summary states "because of her chronic bronchitis sepsis". WBC: 9.8, 9.7 Lactic acid: 2.1 H Blood cultures: negative Vitals signs on admission: P-107/111; R-19/20; BP-125/80; O2 sat-97 NL 3L Treatment: IV Solu-Medrol, Zithromax po, IV Keppra In your professional opinion, please clarify if these findings signify one of the following conditions, whether the condition is POA, and cause, if known: Condition Sepsis ruled out Sepsis ruled in SIRS, without underlying infectious process Other, please specify Unable to determine Present on Admission Yes No SIRS Criteria (2 or more of the following may indicate SIRS): -Temperature < 96.8F (36C) or > 101.0F (38.3C) -Heart Rate > 90 bpm -Respiratory Rate > 20 breaths/min or PaCO2 < 32 mmHg -White Blood Cell Count > 12,000 or < 4,000 cells/mm3 or > 10% bands -Lactate >2.0 mmol/L (>4.0 is equivalent to septic shock) No sepsis MTDD
== END 2018-10-05 22:40 | disposition short-term general hospital (02) | DRG 100 ==
LOC: EC 16:30 → 3SCARD 21:27 → OBSVTOIN 21:28
PROVIDERS: ADMIT Internal Medicine; ATTEND Hospitalist
DX: G40.89 Other seizures (principal); G70.01 Myasthenia gravis with (acute) exacerbation; Z68.42 Body mass index [BMI] 45.0-49.9, adult; B37.0 Candidal stomatitis; J44.1 Chronic obstructive pulmonary disease with (acute) exacerbation; B37.81 Candidal esophagitis; E66.01 Morbid (severe) obesity due to excess calories; E11.22 Type 2 diabetes mellitus with diabetic chronic kidney disease; J39.8 Other specified diseases of upper respiratory tract; N18.3 Chronic kidney disease, stage 3 (moderate); J20.8 Acute bronchitis due to other specified organisms; I12.9 Hypertensive chronic kidney disease with stage 1 through stage 4 chronic kidney disease, or unspecified chronic kidney disease; J32.2 Chronic ethmoidal sinusitis; J32.0 Chronic maxillary sinusitis; T38.0X5A Adverse effect of glucocorticoids and synthetic analogues, initial encounter; F41.9 Anxiety disorder, unspecified; G47.33 Obstructive sleep apnea (adult) (pediatric); K21.9 Gastro-esophageal reflux disease without esophagitis; E78.5 Hyperlipidemia, unspecified; G43.909 Migraine, unspecified, not intractable, without status migrainosus; M1A.9XX0 Chronic gout, unspecified, without tophus (tophi); H40.9 Unspecified glaucoma; Z79.82 Long term (current) use of aspirin; Z79.4 Long term (current) use of insulin; Z79.899 Other long term (current) drug therapy; Z90.710 Acquired absence of both cervix and uterus; Z87.891 Personal history of nicotine dependence; Z90.49 Acquired absence of other specified parts of digestive tract; Z86.14 Personal history of Methicillin resistant Staphylococcus aureus infection; Z98.890 Other specified postprocedural states; Z71.3 Dietary counseling and surveillance; Z88.0 Allergy status to penicillin; Z88.2 Allergy status to sulfonamides; Z88.1 Allergy status to other antibiotic agents; Z91.02 Food additives allergy status; Z82.49 Family history of ischemic heart disease and other diseases of the circulatory system; Z82.5 Family history of asthma and other chronic lower respiratory diseases; Z83.49 Family history of other endocrine, nutritional and metabolic diseases; Z80.8 Family history of malignant neoplasm of other organs or systems; Z83.3 Family history of diabetes mellitus; Z82.61 Family history of arthritis; Z83.511 Family history of glaucoma; Y92.230 Patient room in hospital as the place of occurrence of the external cause
CPT/HCPCS: 70450; 70496; 71046; 80048; 80053; 82550; 82553; 83036; 83605; 83880; 84484; 85025; 85027; 87040; 87502; 94640; 94760; 95819; 99285

== ENCOUNTER → 2018-10-14 | Outpatient (CLI) | payer BC ==
[2018-10-14 19:17] LABS: T4, Free (Free Thyroxine) 1.1 ng/dL (0.80-1.80)
[2018-10-15 22:44] LABS: Anti-DNA, DS unit <1.0 IU/mL; DNA Double-Stranded NEGATIVE (NEGATIVE)
== END | disposition home or self-care (01) ==
LOC: LABWHC1 13:44
PROVIDERS: ATTEND Psychiatry & Neurology Neurology
DX: R56.9 Unspecified convulsions (principal)
CPT/HCPCS: 36415; 82607; 84439; 84443; 85652; 86038; 86225; 86235

== ENCOUNTER → 2018-11-16 | Outpatient (CLI) | payer BC ==
--- NOTE | 2018-11-16 19:40 | PN ---
PROGRESS NOTE This patient is 58, and and she is seeing me in the sleep center for a compliance check regarding her obstructive sleep apnea. I diagnosed this patient having obstructive sleep apnea, moderate in severity, with an AHI of 25.9. The patient is utilizing BiPAP therapy for now, and her pressure is 15/11 cm of water. 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 She works at [employer]. She works 3 times a week and she alternates that with 4 days a week. Her work schedule is between 7 p.m. and 7 a.m. in the morning. She drives back home and she arrives home at around 9 a.m. She goes to bed around 10 a.m. and she gets out of bed around 3:30 p.m. On her days off she goes back to a routine sleep schedule, and she tries to sleep as much as possible. Unfortunately she is gaining weight. She used to weight 241. Currently she is up to 254. She is diabetic and she was started on Trulicity by Dr. Langston. She has also issues with hypertension and diabetes mellitus and chronic renal failure. The patient also has myasthenia gravis and has been maintained on 10 mg of prednisone, which is obviously making her gain weight. BiPAP therapy has helped this patient. She is waking up more refreshed. Her sleep quality is improved. I checked her current BiPAP compliance over the past 30 days. The patient has been utilizing her BiPAP more than 90% of the time. Her BiPAP use for more than 4 hours is 18/30. Her average BiPAP use is around 4.6 hours and her leak factor is 23 L/minute. AHI while on BiPAP therapy is down to 3.1. She has no specific complaints. Her Midway score is down to 4. She feels better. REVIEW OF SYSTEMS: CONSTITUTIONAL: Positive for weight gain. No fever, chills or night sweats. No nasal congestion. No stuffiness or sinus attacks or infections. No sore throat. No dryness in her mouth. No shortness of breath or coughing. No chest pain. No palpitations. No nausea, vomiting or aerophagia. No dysuria, frequency or urgency. She is still feeling tired, although less sleepy, while being on the BiPAP therapy. No altered mentation. No falls. No wounds or ulcerations. No active arthritis. She has myasthenia gravis. She has chronic muscle weakness. She is on 10 mg of prednisone on a daily basis. She is trying to lose weight. She was started on Trulicity. She has on and off migraines and she has been seen by Dr. Schmidt and she has received shots to her back, with some limited success in improving her migraine attacks. PHYSICAL EXAMINATION: Her BP is 165/99, pulse 98, respirations 18, temperature 97.9. Saturation is 96% on room air. Weight is 254. GENERAL APPEARANCE: Calm, comfortable, obese. Head is atraumatic, normocephalic. NECK: Supple. No JVD. No goiter or neck masses. Mallampati class IV. LUNGS: Clear to auscultation. Heart sounds are regular rate and rhythm. Normal S1, S2. No S3, S4. No murmurs. ABDOMEN: Soft, nontender. No organomegaly. EXTREMITIES: No edema. No cyanosis or clubbing. Neurologically alert and oriented x3. No focal neurological deficits. PSYCHIATRIC: Negative for anxiety or depression at this point in time. SKIN: Negative for any wounds or ulceration. IMPRESSION: 1. Moderately severe obstructive sleep apnea with an apnea/hypopnea index of 26, currently on a BiPAP pressure of 15/11 with successful treatment. 2. Hypersomnia, improved. Midway score is down to 4 while on BiPAP therapy. 3. Nocturnal oxygen desaturation, recovered with BiPAP therapy. 4. Loud snoring, recovered with BiPAP therapy. 5. Obesity with interval weight gain. The patient's current weight is up to 254. 6. Myasthenia gravis with chronic steroid intake at a dose of 10 mg p.o. daily. 7. Some limited cushingoid features related to chronic steroid use. 8. Hypertension. 9. Diabetes mellitus. 10.Chronic renal failure. PLAN: 1. Encourage weight loss. 2. Additional Trulicity may help this patient losing weight. 3. Continue prednisone at 10 mg p.o. daily regarding myasthenia gravis and consult with Dr. Schmidt regarding the steroid taper if possible. 4. Continue BiPAP therapy at the same level of pressure. 5. Continue the same mask, which is a Simplus full-face mask. 6. Will try to extend sleep hours if possible. The patient was advised to go to bed immediately after she arrives back from work. She is a manufacturing shift supervisor worker and obviously this will become an issue. We will continue to follow and make further recommendations. For now, the treatment is successful. No need for any adjustments on the BiPAP setting. MMODL / IJN: [id number] /
== END ==
LOC: SLEEP 15:27
PROVIDERS: ATTEND Internal Medicine Critical Care Medicine
DX: G47.33 Obstructive sleep apnea (adult) (pediatric) (principal); E66.9 Obesity, unspecified; G70.00 Myasthenia gravis without (acute) exacerbation; E11.22 Type 2 diabetes mellitus with diabetic chronic kidney disease; I12.9 Hypertensive chronic kidney disease with stage 1 through stage 4 chronic kidney disease, or unspecified chronic kidney disease; N18.9 Chronic kidney disease, unspecified; Z99.89 Dependence on other enabling machines and devices

== ENCOUNTER → 2018-12-02 | Outpatient (CLI) | payer BC | END | disposition home or self-care (01) | LOC: LABWHC1 11:05 | PROVIDERS: ATTEND Otolaryngology | DX: J30.89 Other allergic rhinitis (principal) | CPT/HCPCS: 36415; 86003 ==

== ENCOUNTER → 2018-12-30 | Outpatient (CLI) | payer BC ==
--- NOTE | 2018-12-31 09:30 | US ---
EXAMINATION TYPE: US venous doppler duplex LE RT DATE OF EXAM: 12/30/2018 4:56 PM COMPARISON: 2018 CLINICAL HISTORY: Rt Lower Ext, I82.210 Acute embolism and thrombosi. Large body habitus limited SIDE PERFORMED: RT TECHNIQUE: The lower extremity deep venous system is examined utilizing real time linear array sonography with graded compression, doppler sonography and color-flow sonography. VESSELS IMAGED: External Iliac Vein (EIV) Common Femoral Vein Deep Femoral Vein Greater Saphenous Vein * Femoral Vein Popliteal Vein Small Saphenous Vein * Proximal Calf Veins (* superficial vessels) Right Leg: Negative for DVT IMPRESSION: 1. Right lower extremity ultrasound negative for deep venous process. MTDD
== END | disposition home or self-care (01) ==
LOC: RADUSWWP 16:29
PROVIDERS: ATTEND Psychiatry & Neurology Neurology
DX: I82.210 Acute embolism and thrombosis of superior vena cava (principal)

== ENCOUNTER → 2019-04-05 | Outpatient (CLI) | payer BC ==
--- NOTE | 2019-04-06 07:41 | XR ---
EXAMINATION TYPE: XR lumbar spine 2 or 3V DATE OF EXAM: 04/05/2019 CLINICAL HISTORY: Left hip pain and back pain TECHNIQUE: Frontal and lateral images of the lumbar spine are obtained. COMPARISON: None FINDINGS: There are 5 lumbar type vertebral bodies identified. The lumbar spine shows satisfactory alignment without evidence of acute fracture or dislocation. Multilevel intervertebral disc space dez rowing and facet arthropathy are seen. Some irregularity is seen of the T12 vertebral body superior e ndplate although no height loss is appreciated. Vertebral body heights and disk space heights are wit hin normal limits. Cholecystectomy clips are seen. IMPRESSION: 1. No acute fracture or malalignment is seen in the lumbar spine. 2. Some irregularity of the T12 endplate is suboptimally evaluated given [id number] although verte bral body height appears maintained. This likely is on the basis of endplate sclerosis and degenerati ve disc disease. Correlation with point tenderness is recommended. 2. 2 mild multilevel degenerative disc disease of the lumbar spine.
--- NOTE | 2019-04-06 07:44 | XR ---
EXAMINATION TYPE: XR Hip Complete LT DATE OF EXAM: 04/05/2019 CLINICAL HISTORY: Left hip pain TECHNIQUE: AP and frogleg views of the left hip are obtained. COMPARISON: None. FINDINGS: There is no acute fracture/dislocation evident in the left hip. The joint space in the le ft hip appears aligned however there is an osteophyte projecting from the superior acetabulum lateral ly that could contribute to femoral acetabular impingement. There is mild joint space narrowing and a cetabular roof sclerosis. The overlying soft tissue appears unremarkable. IMPRESSION: 1. No acute fracture or dislocation in the left hip. 2. Mild acetabular arthropathy. 3. Osteophyte projecting from the superior lateral acetabulum that could create femoral acetabular im pingement syndrome clinically.
== END | disposition home or self-care (01) ==
LOC: RADXRMAIN 16:59
PROVIDERS: ATTEND Family Medicine
DX: M51.36 Other intervertebral disc degeneration, lumbar region (principal); M12.852 Other specific arthropathies, not elsewhere classified, left hip; M25.752 Osteophyte, left hip
CPT/HCPCS: 72100; 73502

== ENCOUNTER → 2019-04-14 | Outpatient (CLI) | payer BC ==
--- NOTE | 2019-04-14 21:33 | BD ---
EXAMINATION TYPE: Axial Bone Density DATE OF EXAM: 04/14/2019 COMPARISON: 03.08.2002 CLINICAL HISTORY: 58 YR OLD FEMALE....ICD-10 CODE: N95.1 MENOPAUSAL/FEMALE CLIMACTERIC STATE Height: 61.2 Weight: 252 FRAX RISK QUESTIONS: Glucocorticoids (More than 3mos): YES (Ex: prednisone, prednisolone, methylprednisolone, dexamethasone, and hydrocortisone). History of Fracture in Adulthood: YES Secondary Osteoporosis: YES 1. Type 1 Diabetes: YES 3. Menopause before 45: YES 5. Chronic liver disease: FATTY Current Tobacco Use: QUIT 25 YRS AGO RISK FACTORS HISTORY OF: HX OF LT ANKLE FX....AT APROX 50 YRS OLD Diet low in dairy products/other sources of calcium: YES A BIT LOW Postmenopausal woman: TOTAL HYST AT AGE 38 YRS OLD Take estrogen and/or progesterone medications: IN PAST FOR ABOUT 5 YRS, NONE NOW Lost more than 2 inches in height since high school: YES Adrenal Insufficiency: YES, MG AND TIFFANIE MEDICATIONS: Prednisone or other steroids: YES FOR OVER 3 YRS NOW, PREDNISONE, ASTHMA AND COPD, INHALERS Additional Medications: VIT D AND CALCIUM, BP MEDS, AMITRIPTYLINE, INSULIN, REFLUX MEDS, Additional History: TIFFANIE DISEASE, MYASTHENIA GRAVIS, HYPERTENSION, ANXIETY, DIABETIC, OSTEOARTHRIT IS , STAGE 3 KIDNEY DISEASE EXAM MEASUREMENTS: Bone mineral densitometry was performed using the [employer] System. Bone mineral density as measured about the Lumbar spine is: ----- L1-L4(G/cm2): 1.207 T Score Values are as follows: ----- L1: -0.2 ----- L2: 0.6 ----- L3: -0.4 ----- L4: 0.7 ----- L1-L4: 0.2 Bone mineral density has: Decreased -9.5% since study of: 03.08.2002 Bone mineral density about the R hip (g/cm2): 0.762 Bone mineral density about the L hip (g/cm2): 0.774 T Score values are as follows: -----R Neck: -2.5 -----L Neck: -2.4 -----R Total: -2.0 -----L Total: -1.9 Bone mineral density has: Decreased -30.4% since study of: 03.08.2002 FRAX%s: THERE IS A 25.0% CHANCE FOR A MAJOR OSTEOPOROTIC FX AND A 5.4% FOR HIP.....PROBABILITY FOR FX IN 10 YRS TIME IMPRESSION: Osteopenia (T Score between -2.5 and -1). There is slightly increased risk of fracture and the patient may be considered for treatment. Re-Screen 2-5 years. NOTE: T-SCORE=SD OF THE YOUNG ADULT MEAN.
== END ==
LOC: RADBDWWP 14:55
PROVIDERS: ATTEND Family Medicine
DX: M85.80 Other specified disorders of bone density and structure, unspecified site (principal); N95.1 Menopausal and female climacteric states
CPT/HCPCS: 77080

== ENCOUNTER 2019-05-12 15:36 | Inpatient (IN) | payer BC ==
[2019-05-12 17:28] LABS: Glucose,Whole Blood 139 mg/dL (75-99)
--- NOTE | 2019-05-12 19:51 | XR ---
EXAMINATION TYPE: XR chest 2V DATE OF EXAM: 05/12/2019 COMPARISON: 10/02/2018 HISTORY: Short of breath TECHNIQUE: Frontal and lateral views of the chest are obtained. FINDINGS: Heart and mediastinum are normal. Lungs are clear of infiltrate. There is no pleural effus ion. There are chest leads. Costophrenic angles are clear. IMPRESSION: No active cardiopulmonary disease. Normal heart. No change.
[2019-05-12 20:22] LABS: Basophils # (A) 0.2 k/uL (0-0.2); Basophils % (A) 2 %; Eosinophils # (A) 0.1 k/uL (0-0.7); Eosinophils % (A) 1 %; HCT 38.9 % (34.0-46.0); HGB 12.2 gm/dL (11.4-16.0); Hypochromasia Slight; Lymphocytes # (A) 1.5 k/uL (1.0-4.8); Lymphocytes % (A) 14 %; MCH 26.2 pg (25.0-35.0); MCHC 31.4 g/dL (31.0-37.0); MCV 83.6 fL (80.0-100.0); Mean Platelet Volume 7.5; Monocytes # (A) 0.6 k/uL (0-1.0); Monocytes % (A) 6 %; Neutrophils # (A) 7.8 k/uL (1.3-7.7); Neutrophils % (A) 76 %; Platelet Count 212 k/uL (150-450); RBC 4.66 m/uL (3.80-5.40); RDW 15.7 % (11.5-15.5); WBC 10.3 k/uL (3.8-10.6)
[2019-05-12 20:41] LABS: Glucose,Whole Blood 249 mg/dL (75-99)
[2019-05-12 20:41] LABS: Albumin 3.6 g/dL (3.5-5.0); Calcium 9.5 mg/dL (8.4-10.2); Potassium 4.1 mmol/L (3.5-5.1); Total Bilirubin 0.2 mg/dL (0.2-1.3); Total Protein 6.4 g/dL (6.3-8.2)
[2019-05-12] MEDS: SODIUM CHLORIDE 0.9% 1,000 ML IV SCH (20:51)
[2019-05-12] MEDS: AMITRIPTYLINE HCL 10 MG TAB PO SCH (20:51)
[2019-05-12] MEDS: INSULIN ASPART (NovoLOG) 100 UNIT/ML VIAL SQ SCH (20:52)
[2019-05-12] MEDS: levETIRAcetam 250 MG TAB PO SCH (20:52)
[2019-05-12] MEDS: BUTALB/APAP/CAFF 50-325-40MG TAB PO PRN (20:53)
[2019-05-12] MEDS: TOPIRAMATE 25 MG TAB PO SCH (20:53)
[2019-05-12] MEDS ORDERED: INSULIN DETEMIR (LEVEMIR) 100 UNIT/ML SYR SQ SCH (21:00)
[2019-05-12] MEDS: methylPREDNISolone SOD SUCCI 125 MG/2 ML VIAL IV SCH (21:03)
[2019-05-12 23:44] LABS: Appearance,Urine Clear (Clear); Bilirubin,Urine Negative (Negative); Blood,Urine Negative (Negative); Color,Urine Yellow; Glucose,Urine (UA) 4+ (Negative); Ketones,Urine Trace (Negative); Leukocyte Esterase,Urine Negative (Negative); Nitrite,Urine Negative (Negative); Protein,Urine Trace (Negative)
[2019-05-13] MEDS: DILTIAZEM ORAL 30 MG TAB PO SCH ×4 (00:16→23:41)
[2019-05-13] MEDS: BUTALB/APAP/CAFF 50-325-40MG TAB PO PRN ×2 (04:23→14:49)
[2019-05-13] MEDS: ONDANSETRON 4 MG TAB PO PRN ×2 (04:23→14:50)
[2019-05-13] MEDS: methylPREDNISolone SOD SUCCI 125 MG/2 ML VIAL IV SCH ×4 (05:33→23:55)
[2019-05-13 06:54] LABS: Glucose,Whole Blood 282 mg/dL (75-99)
[2019-05-13] MEDS: INSULIN ASPART (NovoLOG) 100 UNIT/ML VIAL SQ SCH ×4 (07:14→11:41)
[2019-05-13] MEDS: levETIRAcetam 250 MG TAB PO SCH ×2 (08:34→20:11)
[2019-05-13] MEDS: PANTOPRAZOLE 40 MG TABLET PO SCH ×2 (08:34→17:31)
[2019-05-13] MEDS: CALCIUM CARBONATE 500 MG CHEWABLE PO SCH (08:34)
[2019-05-13] MEDS: ASPIRIN 81 MG PO SCH (08:34)
[2019-05-13] MEDS: ALLOPURINOL 100 MG TAB PO SCH (08:34)
[2019-05-13] MEDS: POTASSIUM CHLORIDE ER 20 MEQ TAB.ER PO SCH (08:35)
[2019-05-13] MEDS: TOPIRAMATE 25 MG TAB PO SCH ×2 (08:35→20:10)
[2019-05-13] MEDS: SODIUM CHLORIDE 0.9% 1,000 ML IV SCH ×2 (08:35→20:13)
[2019-05-13 11:16] LABS: Glucose,Whole Blood 393 mg/dL (75-99)
--- NOTE | 2019-05-13 15:09 | P.CNPUL ---
History of Present Illness Consult date: 05/13/19 Requesting physician: Thomas Ricketts Chief complaint: Bilateral eye weakness, fatigue, shortness of breath, difficulty swallowing History of present illness: This is a 58-year-old white female patient of Dr. Thomas Ricketts with past medical history of myasthenia gravis on chronic prednisone dose of 20 mg daily, patient is intolerant to Mestinon, apparently she had adverse reaction with the muscle twitching and weakness after taking Mestinon in the past, she is under the care of Dr. Schmidt. Other medical history includes COPD, mild intermittent chronic bronchial asthma, past history of smoking, in remission for 25 years, did smoke one to one half packs daily for 20 years. Patient presented on 05/13/[address] Ricketts's office as a direct admission for exacerbation of myasthenia gravis, apparently patient has been experiencing weakness in her right eye, she could not open her right eye for last few days, and today her left eye has also showed down, she has been having trouble swallowing, and having some voice hoarseness along with some mild shortness of breath. She was seen by Dr. Ricketts in the office and was sent for inpatient admission and started on high dose of IV steroids. Chest x-ray did not show any evidence of acute pulmonary process, vital signs are stable, her blood work is unremarkable. She does not have any other symptoms, no fever or chills, she does have some occasional cough nonproductive, no significant cough or congestion, no wheezing. Patient does have a history of obstructive sleep apnea, her AHI score of 26, and she has a BiPAP device at home with pressures of 16/11. However patient states she had been hospitalized in January for intestinal obstruction, and had to have a NG tube for a prolonged period of time. She states he has been difficult for her to wear the BiPAP since that time and she has not been as compliant with her device.. Other medical history is positive for seizure disorder she is maintained on Keppra, morbid obesity, retention, diabetes mellitus and glaucoma. Patient's PFT revealed FEV1 of 1.9 L or 77% of predicted, with a forced vital capacity of 2.28 L or 73% of predicted and FEV1/FVC of 105%, and no significant diffusion abnormality with a DLVA of 4.8 7/107 percent predicted, PFTs consistent with minimal obstruction. Vitals have been stable, patient is afebrile, she is on 2 L with a pulse ox of 95%, respirations are even and nonlabored, lung sounds are clear, diminished at the bases, with no rhonchi or wheezing, no complaint of chest pain, no cough or congestion. Review of Systems All systems: negative Constitutional: Denies chills, Denies fever Eyes: denies blurred vision, denies pain Ears, nose, mouth and throat: Denies headache, Denies sore throat Cardiovascular: Denies chest pain, Denies shortness of breath Respiratory: Reports dyspnea, Denies cough Gastrointestinal: Denies abdominal pain, Denies diarrhea, Denies nausea, Denies vomiting Genitourinary: Denies dysuria, Denies hematuria Musculoskeletal: Denies myalgias Integumentary: Denies pruritus, Denies rash Neurological: Denies numbness, Denies weakness Psychiatric: Denies anxiety, Denies depression Endocrine: Denies fatigue, Denies weight change Past Medical History Past Medical History: Asthma, COPD, Diabetes Mellitus, GERD/Reflux, Hypertension, Neurologic Disorder, Osteoarthritis (OA), Renal Disease Additional Past Medical History / Comment(s): Morbid obesity with a BMI of 42.9, gout, hypertension, diabetes mellitus, myasthenia gravis, herniated discs History of Any Multi-Drug Resistant Organisms: MRSA Date of last positivie culture/infection: 2013 MDRO Source:: eye Past Surgical History: Adenoidectomy, Section, Cholecystectomy, Heart Catheterization, Hysterectomy, Tonsillectomy Additional Past Surgical History / Comment(s): laser eye sx for glaucoma. at times gets dizzy when up, small bowel obstruction and lysis of adhesions in January 2019 Past Anesthesia/Blood Transfusion Reactions: Motion Sickness, Postoperative Nausea & Vomiting (PONV) Additional Past Anesthesia/Blood Transfusion Reaction / Comment(s): clausterphobia Past Psychological History: Anxiety Additional Psychological History / Comment(s): lives alone in apt. drives, pt. states her son lives in the building next door, has glucometer. Smoking Status: Former smoker Past Alcohol Use History: None Reported Additional Past Alcohol Use History / Comment(s): started smoking at age 14(1973) and quit 1993 smoked 1.5 ppd Past Drug Use History: None Reported - Past Family History Father Family Medical History: Cancer, COPD Additional Family Medical History / Comment(s): ashd, amputations d/t vascular dz, skin cancer, gout, Mother Family Medical History: Asthma, Chest Pain / Angina, Congestive Heart Failure (CHF), Dementia, Diabetes Mellitus, Hypertension, Osteoarthritis (OA) Additional Family Medical History / Comment(s): glaucoma,gout, neuropathy Medications and Allergies Home Medications Medication Instructions Recorded Confirmed Type Allopurinol [Zyloprim] 50 mg PO DAILY 09/28/15 05/12/19 History Aspirin 81 mg PO DAILY 09/28/15 05/12/19 History Insulin Glargine [Lantus] 50 unit SQ HS 09/28/15 05/12/19 History Omeprazole [PriLOSEC] 20 mg PO AC-BID 09/28/15 05/12/19 History Topiramate [Topamax] 50 mg PO BID 09/28/15 05/12/19 History Amitriptyline HCl [Elavil] 10 - 20 mg PO HS 10/03/18 05/12/19 History Butalb/Acetaminophen/Caffeine 1 tab PO Q8HR PRN 10/03/18 05/12/19 History [Fioricet 50-300-40 mg Capsule] Ondansetron HCl [Zofran] 8 mg PO Q8HR PRN 10/03/18 05/12/19 History Calcium Carbonate [Tums] 500 mg PO DAILY 05/12/19 05/12/19 History Diltiazem Oral [Cardizem Oral] 30 mg PO Q8H 05/12/19 05/12/19 History Ergocalciferol (Vitamin D2) 50,000 unit PO WE 05/12/19 05/12/19 History [Drisdol] INSULIN ASPART (NovoLOG) [NovoLOG 20 unit SQ AC-TID 05/12/19 05/12/19 History (formulary)] Insulin Aspart [NovoLOG Flexpen] See Protocol SQ AC-TID 05/12/19 05/12/19 History Potassium Chloride ER [K-Dur 20] 40 meq PO DAILY 05/12/19 05/12/19 History levETIRAcetam [Keppra] 250 mg PO Q12HR 05/12/19 05/12/19 History predniSONE 10 mg PO BID 05/12/19 05/12/19 History Allergies Allergy/AdvReac Type Severity Reaction Status Date / Time aspartame Allergy Unknown Verified 05/12/19 17:42 [From Nutrasweet Aspartame] ciprofloxacin Allergy Unknown Verified 05/12/19 17:42 Penicillins Allergy Unknown Verified 05/12/19 17:42 Sulfa (Sulfonamide Allergy Unknown Verified 05/12/19 17:42 Antibiotics) levofloxacin [From Levaquin] AdvReac Severe Unknown Verified 05/12/19 17:42 Physical Exam Vitals: Vital Signs Temp Pulse Resp BP Pulse Ox 05/13/19 07:00 98.2 F 99 19 157/95 95 05/13/19 00:00 98.2 F 96 16 165/104 97 05/12/19 19:30 98.2 F 98 16 166/103 99 05/12/19 16:54 98.3 F 103 H 16 141/82 100 Intake and Output 05/12/19 05/13/19 05/13/19 22:59 06:59 14:59 Intake Total 150 750 358 Balance 150 750 358 Intake: Intake, IV Titration 150 750 Amount Sodium Chloride 0.9% 1, 150 750 000 ml @ 75 mls/hr IV . [id number] [facility] Rx#:[id number] Oral 358 Other: # Voids 1 Weight 120 kg GENERAL EXAM: Alert, very pleasant, obese white female, on 2 L of oxygen with a pulse ox of 95% comfortable in no apparent distress. HEAD: Normocephalic/atraumatic. EYES: Normal reaction of pupils, equal size. Conjunctiva pink, sclera white. NOSE: Clear with pink turbinates. THROAT: No erythema or exudates. NECK: No masses, no JVD, no thyroid enlargement, no adenopathy. CHEST: No chest wall deformity. Symmetrical expansion. LUNGS: Equal air entry with no crackles, wheeze, rhonchi or dullness. CVS: Regular rate and rhythm, normal S1 and S2, no gallops, no murmurs, no rubs ABDOMEN: Soft, nontender. No hepatosplenomegaly, normal bowel sounds, no guarding or rigidity. EXTREMITIES: No clubbing, no edema, no cyanosis, 2+ pulses and upper and lower extremities. MUSCULOSKELETAL: Muscle strength and tone normal. SPINE: No scoliosis or deformity SKIN: No rashes CENTRAL NERVOUS SYSTEM: Alert and oriented -3. No focal deficits, tone is normal in all 4 extremities. PSYCHIATRIC: Alert and oriented -3. Appropriate affect. Intact judgment and insight. Results - Laboratory Findings CBC and BMP: 05/12/19 19:39 05/12/19 19:39 Abnormal lab findings: Abnormal Labs 05/12/19 05/12/19 05/12/19 17:16 19:39 19:39 RDW 15.7 H Neutrophils # 7.8 H BUN 18 H Glucose 205 H POC Glucose (mg/dL) 139 H Urine Protein Urine Glucose (UA) Urine Ketones 05/12/19 05/12/19 05/13/19 20:37 23:30 06:53 RDW Neutrophils # BUN Glucose POC Glucose (mg/dL) 249 H 282 H Urine Protein Trace H Urine Glucose (UA) 4+ H Urine Ketones Trace H 05/13/19 11:15 RDW Neutrophils # BUN Glucose POC Glucose (mg/dL) 393 H Urine Protein Urine Glucose (UA) Urine Ketones - Diagnostic Findings Chest x-ray: report reviewed, image reviewed Assessment and Plan Plan: Assessment: #1. Mild dyspnea, bilateral eyelid weakness, difficulty swallowing and voice hoarseness, possibly related to acute exacerbation of myasthenia gravis #2. History of chronic obstructive pulmonary disease, stable #3. Mild intermittent bronchial asthma, currently stable #4. Obstructive sleep apnea, with AHI score of 25, on BiPAP therapy with pressures of 16/11, not consistently compliant #5. Hypertension #6. Diabetes mellitus #7. Seizure disorder #8. History of myasthenia gravis maintained on prednisone, intolerant to Mestinon #9. Glaucoma Plan: We will have the patient's family bring in her home BiPAP machine, if they're unable to bring it in tonight we'll initiate our inpatient BiPAP therapy at a pressure of 16/11, and FiO2 of 28%, COPD/asthma, currently stable, will obtain a bedside spirometry, vital cap and NIF. Patient is unable to tolerate Mestinon, she has been initiated on IV steroids, will order breathing treatments on an as- needed basis, outpatient PFT has been reviewed and is consistent with mild obstr uction. Chest x-ray reviewed and showed no active cardiopulmonary disease, lab work has been reviewed and is unremarkable. We'll resume patient's home medications and grooming seizure medications, patient may need to go on insulin drip in view of steroid-induced hyperglycemia. We'll continue to follow I performed a history & physical examination of the patient and discussed their management with my nurse practitioner, Deja Munoz. I reviewed the nurse practitioner's note and agree with the documented findings and plan of care. Lung sounds are positive for clear diminished. The findings and the impression was discussed with the patient. I attest to the documentation by the nurse pr actitioner. Time with Patient: Greater than 30
[2019-05-13] MEDS ORDERED: INSULIN REGULAR BOLUS (FROM DRIP BAG) IV PRN (15:21)
[2019-05-13] MEDS ORDERED: INSULIN REGULAR BOLUS (FROM DRIP BAG) IV ONE (15:27)
[2019-05-13] MEDS ORDERED: INSULIN REGULAR 100 UNIT in SODIUM CHLORIDE 0.9% 100 ML IV SCH (15:30)
[2019-05-13 17:01] LABS: Glucose,Whole Blood 377 mg/dL (75-99)
[2019-05-13] MEDS: INSULIN REGULAR 100 UNIT in SODIUM CHLORIDE 0.9% 100 ML IV SCH ×2 (17:22→23:30)
[2019-05-13] MEDS: NYSTATIN 100,000 UNIT/ML SUSP 500,000 UNIT/5 ML CUP PO SCH ×2 (17:31→23:41)
[2019-05-13 17:46] LABS: Hemoglobin A1C 10.7 % (4.0-6.0)
[2019-05-13 17:54] LABS: Glucose,Whole Blood 399 mg/dL (75-99)
[2019-05-13] MEDS ORDERED: methylPREDNISolone SOD SUCCI 125 MG/2 ML VIAL IV SCH (19:15)
[2019-05-13 19:50] LABS: Glucose,Whole Blood 321 mg/dL (75-99)
[2019-05-13] MEDS: AMITRIPTYLINE HCL 10 MG TAB PO SCH (20:10)
[2019-05-13 21:45] LABS: Glucose,Whole Blood 252 mg/dL (75-99)
--- NOTE | 2019-05-13 23:10 | P.CNNES ---
History of Present Illness Consult date: 05/13/19 Reason for Consult: Myasthenia gravis Chief complaint: Myasthenia gravis History of Present Illness: REFERRING PHYSICIAN: Dr. Thomas Ricketts HISTORY OF PRESENT ILLNESS: Thank you for allowing me to evaluate Ms. Marcy Rey. Ms. Rey is a 58 year-old woman with PMHx of diabetes, hypertension, morbid obesity, gout, renal disease, myasthenia gravis, anxiety, presenting with acute onset ptosis along with dysphagia and SOB x1 days. Patient states that she was on her way to her PCP's office when her L eye first started closing up and when she got to the clinic, her R eye had closed up. Her PCP sent patient to ED for concerns of MG flare. Patient states that this year, patient has gotten 3 courses of high dose steroids, first in 09/2018 and last in 12/2018. The one in 2018 occurred when patient got beta blockers. Patient thinks she almost always got 125mg IV steroids several times a day as it's always difficult to control her sugar due to her diabetes. Patient denies any recent sickness, fever, nausea, vomiting, headache, constipation. Patient states that she had a bowel obstruction several months ago, since when she's had some issues with her bowel movement. She had a surgical intervention for the bowel obstruction. Patient also endorses double vision, which she has with her MG flare. Patient states that she had tried Mestinon, but it caused lots of jerking episodes, and with Imuran, she constantly vomited. 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 PAST MEDICAL HISTORY: Diabetes, hypertension, morbid obesity, gout, renal disease, myasthenia gravis, anxiety PAST SURGICAL HISTORY: Cholecystectomy, hysterectomy, , tonsillectomy, adenoidectomy, laser eye surgery HOME MEDICATIONS: Insulin, Topamax, omeprazole, aspirin, allopurinol, Zofran when necessary, Fioricet when necessary, Elavil, Keppra 250 twice a day, diltiazem, potassium chloride, prednisone 10 twice a day, vitamin D2, calcium ALLERGIES: Aspartame, ciprofloxacin, penicillin, sulfa, levofloxacin SOCIAL HISTORY: Former smoker. She was smoking at age 14 and quit in 94. 1.5 pack per day history. Patient lives alone in an apartment FAMILY HISTORY: Father with COPD, vascular disease, skin cancer and gout. Mother with asthma, angina, CHF, dementia, diabetes, hypertension, osteoarthritis,,, neuropathy REVIEW OF SYSTEMS: The 14 systems are reviewed and no additional points are identified compared to the review of systems documented history and physical PHYSICAL EXAMINATION: VITAL SIGNS: Temperature 98.2 pulse rate 99 respiratory rate 19 blood pressure 157/95 O2 saturation 95% on 2 L via nasal cannula GEN.: NAD, pleasant and cooperative HEENT: NCAT, sclera without icterus NECK: Supple SKIN AND EXTREMITIES: Warm to touch, no edema NEURO: MENTAL STATUS: Patient alert and oriented to self, place, time. Able to name the current president. Speech fluent, able to name and repeat, following all commands readily. CRANIAL NERVES II THROUGH XII: II: Pupils are equal and reactive to light symmetrically. Visual solitario are intact. III, IV, : Significant ptosis bilaterally. Patient barely able to show a sliver of her eyes bilaterally and quickly weakens. Double vision in all direction. Extraocular movements full. No nystagmus. V: Facial sensation intact from V1-3. VII. No clear facial asymmetry. VIII: Hearing intact to finger rub bilaterally. IX, X: Symmetric palate elevation. XI: Shoulder shrug intact. XII: Tongue midline without fasciculation or atrophy. MOTOR: Normal bulk/tone. No pronator drift or tremor. Strength is 5/5 in b/l UE. Patient able to bend knees and get her feet off the bed briefly 3/5 strength. SENSORY: Intact to light touch in all 4 extremities. REFLEXES: 2+ throughout. Toes are downgoing. COORDINATION: Finger to nose intact. No dysmetria. GAIT: Deferred due to b/l LE weakness. DIAGNOSTIC TESTING: LABORATORY: WBC 10.3 hemoglobin 12.2 platelet 212 sodium 139 potassium 4.1 chloride 104 bicarb 30 BUN 18 creatinine 0.94 glucose 205 AST 23 ALT 35 alk phos 114 urinalysis 4+ glucose, trace protein and ketone IMAGING: Chest x-ray 05/12/2019: No active cardiopulmonary disease. Normal heart. No change. ASSESSMENT: Ms. Rey is a 58 year-old woman with PMHx of diabetes, hypertension, morbid obesity, gout, renal disease, myasthenia gravis, anxiety, presenting with acute onset ptosis along with dysphagia and SOB x1 days. Patient with symptoms consistent with myasthenia gravis flare. Patient is only on prednisone 10mg BID at home. Patient also cannot take Mestinon due to it's side effects on this patient. Patient will need alternative treatment like periodic IVIG. At this time, agree with IV high-dose steroids q6h as patient has had issues with her blood sugar level while getting steroids. RECOMMENDATIONS: 1. IV methylprednisolone 125mg q6h 2. blood glucose check q6h 3. PPI 4. Neurology will continue to follow. Please feel free to [employer] message me over the weekend with any questions or concerns. Past Medical History Past Medical History: Asthma, COPD, Diabetes Mellitus, GERD/Reflux, Hypertension, Neurologic Disorder, Osteoarthritis (OA), Renal Disease Additional Past Medical History / Comment(s): Morbid obesity with a BMI of 42.9, gout, hypertension, diabetes mellitus, myasthenia gravis, herniated discs History of Any Multi-Drug Resistant Organisms: MRSA Date of last positivie culture/infection: 2013 MDRO Source:: eye Past Surgical History: Adenoidectomy, Section, Cholecystectomy, Heart Catheterization, Hysterectomy, Tonsillectomy Additional Past Surgical History / Comment(s): laser eye sx for glaucoma. at times gets dizzy when up, small bowel obstruction and lysis of adhesions in January 2019 Past Anesthesia/Blood Transfusion Reactions: Motion Sickness, Postoperative Nausea & Vomiting (PONV) Additional Past Anesthesia/Blood Transfusion Reaction / Comment(s): clausterphobia Past Psychological History: Anxiety Additional Psychological History / Comment(s): lives alone in apt. drives, pt. states her son lives in the building next door, has glucometer. Smoking Status: Former smoker Past Alcohol Use History: None Reported Additional Past Alcohol Use History / Comment(s): started smoking at age 14(1973) and quit 1993 smoked 1.5 ppd Past Drug Use History: None Reported - Past Family History Father Family Medical History: Cancer, COPD Additional Family Medical History / Comment(s): ashd, amputations d/t vascular dz, skin cancer, gout, Mother Family Medical History: Asthma, Chest Pain / Angina, Congestive Heart Failure (CHF), Dementia, Diabetes Mellitus, Hypertension, Osteoarthritis (OA) Additional Family Medical History / Comment(s): glaucoma,gout, neuropathy Medications and Allergies Home Medications Medication Instructions Recorded Confirmed Type Allopurinol [Zyloprim] 50 mg PO DAILY 09/28/15 05/12/19 History Aspirin 81 mg PO DAILY 09/28/15 05/12/19 History Insulin Glargine [Lantus] 50 unit SQ HS 09/28/15 05/12/19 History Omeprazole [PriLOSEC] 20 mg PO AC-BID 09/28/15 05/12/19 History Topiramate [Topamax] 50 mg PO BID 09/28/15 05/12/19 History Amitriptyline HCl [Elavil] 10 - 20 mg PO HS 10/03/18 05/12/19 History Butalb/Acetaminophen/Caffeine 1 tab PO Q8HR PRN 10/03/18 05/12/19 History [Fioricet 50-300-40 mg Capsule] Ondansetron HCl [Zofran] 8 mg PO Q8HR PRN 10/03/18 05/12/19 History Calcium Carbonate [Tums] 500 mg PO DAILY 05/12/19 05/12/19 History Diltiazem Oral [Cardizem Oral] 30 mg PO Q8H 05/12/19 05/12/19 History Ergocalciferol (Vitamin D2) 50,000 unit PO WE 05/12/19 05/12/19 History [Drisdol] INSULIN ASPART (NovoLOG) [NovoLOG 20 unit SQ AC-TID 05/12/19 05/12/19 History (formulary)] Insulin Aspart [NovoLOG Flexpen] See Protocol SQ AC-TID 05/12/19 05/12/19 History Potassium Chloride ER [K-Dur 20] 40 meq PO DAILY 05/12/19 05/12/19 History levETIRAcetam [Keppra] 250 mg PO Q12HR 05/12/19 05/12/19 History predniSONE 10 mg PO BID 05/12/19 05/12/19 History Allergies Allergy/AdvReac Type Severity Reaction Status Date / Time aspartame Allergy Unknown Verified 05/12/19 17:42 [From Nutrasweet Aspartame] ciprofloxacin Allergy Unknown Verified 05/12/19 17:42 Penicillins Allergy Unknown Verified 05/12/19 17:42 Sulfa (Sulfonamide Allergy Unknown Verified 05/12/19 17:42 Antibiotics) levofloxacin [From Levaquin] AdvReac Severe Unknown Verified 05/12/19 17:42 Physical Examination - Vital Signs Vital Signs: Vital Signs Temp Pulse Resp BP Pulse Ox 05/13/19 07:00 98.2 F 99 19 157/95 95 05/13/19 00:00 98.2 F 96 16 165/104 97 05/12/19 19:30 98.2 F 98 16 166/103 99 05/12/19 16:54 98.3 F 103 H 16 141/82 100 Intake and Output 05/12/19 05/13/19 05/13/19 22:59 06:59 14:59 Intake Total 150 750 118 Balance 150 750 118 Intake: Intake, IV Titration 150 750 Amount Sodium Chloride 0.9% 1, 150 750 000 ml @ 75 mls/hr IV . [id number] [facility] Rx#:[id number] Oral 118 Other: # Voids 1 Weight 120 kg Results - Laboratory Findings CBC and BMP: 05/12/19 19:39 05/12/19 19:39 Abnormal Lab Findings: Abnormal Labs 05/12/19 05/12/19 05/12/19 17:16 19:39 19:39 RDW 15.7 H Neutrophils # 7.8 H BUN 18 H Glucose 205 H POC Glucose (mg/dL) 139 H Urine Protein Urine Glucose (UA) Urine Ketones 05/12/19 05/12/19 05/13/19 20:37 23:30 06:53 RDW Neutrophils # BUN Glucose POC Glucose (mg/dL) 249 H 282 H Urine Protein Trace H Urine Glucose (UA) 4+ H Urine Ketones Trace H 05/13/19 11:15 RDW Neutrophils # BUN Glucose POC Glucose (mg/dL) 393 H Urine Protein Urine Glucose (UA) Urine Ketones
[2019-05-13 23:45] LABS: Glucose,Whole Blood 224 mg/dL (75-99)
[2019-05-14 01:54] LABS: Glucose,Whole Blood 330 mg/dL (75-99)
--- NOTE | 2019-05-14 02:36 | HP ---
HISTORY AND PHYSICAL HISTORY OF PRESENT ILLNESS: 58-year-old white female admitted with myasthenia gravis exacerbation with severe ptosis of both eyes, extremity weakness x4 extremities. She normally takes chronic prednisone 20 mg a day. Intolerant to Mestinon. She sees Dr. Schmidt. PAST MEDICAL HISTORY: Past medical history of COPD, asthma, nicotine addiction. Await neurologic consult at this time. She states she is about 10-20 percent better than yesterday when I admitted her. She is maintained on Keppra, diabetes mellitus medicine, glaucoma, 2 L oxygen at 95%. REVIEW OF SYSTEMS: Fourteen point review of systems negative except for mentioned in HPI. Generalized weakness, fatigue, ptosis, extremity weakness. She has had a similar outburst 4 years ago when she was hospitalized for multiple stays. Past medical history of asthma, COPD, GERD, hypertension, Myasthenia gravis, osteoarthritis, renal disease, herniated disc, diabetes mellitus, hypertension, MRSA. SURGERIES: Adenoidectomy, , cholecystectomy, heart catheterization, tonsillectomy, hysterectomy, small bowel obstruction, lysis of adhesions. PAST MEDICAL HISTORY: Father COPD, atherosclerotic heart disease, amputations, vascular disease. Mother, asthma, CHF, dementia, diabetes mellitus, hypertension, osteoarthritis. HOME MEDICINES: 1. NovoLog 20 units t.i.d. 2. Vitamin D 50,000 units once a week. 3. Cardizem 30 mg q.8 hours. 4. Fioricet 1 tab q.8 hours for migraines. 5. Elavil 10-20 mg at night. 6. Topamax 50 b.i.d. 7. Prilosec 20 mg b.i.d. 8. Lantus 50 units at night. 9. Zyloprim 50 units daily. 10.Aspirin 81 mg daily. 11. PHYSICAL EXAMINATION: VITAL SIGNS: Vital signs temp 98.2, respiratory 16 to 19, blood pressure is 140s to 160s over 80s to low 100s, pulse ox 95-100 percent. Cardiovascular: S1-S2. Lungs mild wheeze. Decreased breath sounds. Psych: Fair mood and affect. Neurologic: Alert and oriented x3. She has ptosis to bilateral eyes, right greater than left. Extremity: Weakness 3 ut of 5 x4 extremities. Labs reviewed. ASSESSMENT: 1. Acute myasthenia gravis exacerbation with shortness of breath. 2. Bilateral eyelid weakness. 3. Difficulty swallowing. 4. Voice hoarseness. 5. Chronic obstructive pulmonary disease. 6. Bronchial asthma. 7. Sleep apnea. 8. Hypertension. 9. Diabetes mellitus. 10.Seizure disorder. 11.Glaucoma. 12.Intolerant to Mestinon. 13.Going to wear BiPAP machine at home versus BiPAP here. Started on IV steroids, breathing treatments. Wait for further treatment at this time from neurology who was consulted. MMODL / IJN: [id number] /
[2019-05-14 03:47] LABS: Glucose,Whole Blood 333 mg/dL (75-99)
[2019-05-14 05:54] LABS: Glucose,Whole Blood 253 mg/dL (75-99)
[2019-05-14] MEDS: methylPREDNISolone SOD SUCCI 125 MG/2 ML VIAL IV SCH ×3 (05:54→16:42)
[2019-05-14] MEDS: CALCIUM CARBONATE 500 MG CHEWABLE PO SCH (07:16)
[2019-05-14] MEDS: POTASSIUM CHLORIDE ER 20 MEQ TAB.ER PO SCH (07:17)
[2019-05-14] MEDS: ALLOPURINOL 100 MG TAB PO SCH (07:18)
[2019-05-14] MEDS: ASPIRIN 81 MG PO SCH (07:19)
[2019-05-14] MEDS: PANTOPRAZOLE 40 MG TABLET PO SCH ×2 (07:19→16:40)
[2019-05-14] MEDS: DILTIAZEM ORAL 30 MG TAB PO SCH ×2 (07:19→16:41)
[2019-05-14] MEDS: NYSTATIN 100,000 UNIT/ML SUSP 500,000 UNIT/5 ML CUP PO SCH ×4 (07:20→21:33)
[2019-05-14] MEDS: levETIRAcetam 250 MG TAB PO SCH ×2 (07:20→21:33)
[2019-05-14] MEDS: TOPIRAMATE 25 MG TAB PO SCH ×2 (07:21→21:33)
[2019-05-14] MEDS: INSULIN REGULAR 100 UNIT in SODIUM CHLORIDE 0.9% 100 ML IV SCH ×2 (07:23→16:35)
[2019-05-14 07:34] LABS: Glucose,Whole Blood 218 mg/dL (75-99)
[2019-05-14] MEDS: ONDANSETRON 4 MG TAB PO PRN ×2 (08:53→18:11)
[2019-05-14] MEDS: BUTALB/APAP/CAFF 50-325-40MG TAB PO PRN ×2 (08:53→18:11)
[2019-05-14 09:59] LABS: Glucose,Whole Blood 328 mg/dL (75-99)
[2019-05-14 12:32] LABS: Glucose,Whole Blood 227 mg/dL (75-99)
--- NOTE | 2019-05-14 13:58 | P.PN ---
Subjective Progress Note Date: 05/14/19 This is a 58-year-old white female patient of Dr. Thomas Ricketts with past medic al history of myasthenia gravis on chronic prednisone dose of 20 mg daily, patient is intolerant to Mestinon, apparently she had adverse reaction with the muscle twitching and weakness after taking Mestinon in the past, she is under the care of Dr. Schmidt. Other medical history includes COPD, mild intermittent chronic bronchial asthma, past history of smoking, in remission for 25 years, did smoke one to one half packs daily for 20 years. Patient presented on 05/13/[address] Ricketts's office as a direct admission for exacerbation of myasthenia gravis, apparently patient has been experiencing weakness in her right eye, she could not open her right eye for last few days, and today her left eye has also showed down, she has been having trouble swallowing, and having some voice hoarseness along with some mild shortness of breath. She was seen by Dr. Ricketts in the office and was sent for inpatient admission and started on high dose of IV steroids. Chest x-ray did not show any evidence of acute pulmonary process, vital signs are stable, her blood work is unremarkable. She does not have any other symptoms, no fever or chills, she does have some occasional cough nonproductive, no significant cough or congestion, no wheezing. Patient does have a history of obstructive sleep apnea, her AHI score of 26, and she has a BiPAP device at home with pressures of 16/11. However patient states she had been hospitalized in January for intestinal obstruction, and had to have a NG tube for a prolonged period of time. She states he has been difficult for her to wear the BiPAP since that time and she has not been as compliant with her device.. Other medical history is positive for seizure disorder she is maintained on Keppra, morbid obesity, retention, diabetes mellitus and glaucoma. Patient's PFT revealed FEV1 of 1.9 L or 77% of predicted, with a forced vital capacity of 2.28 L or 73% of predicted and FEV1/FVC of 105%, and no significant diffusion abnormality with a DLVA of 4.8 7/107 percent predicted, PFTs consistent with minimal obstruction. Vitals have been stable, patient is afebrile, she is on 2 L with a pulse ox of 95%, respirations are even and nonlabored, lung sounds are clear, diminished at the bases, with no rhonchi or wheezing, no complaint of chest pain, no cough or congestion. On today's evaluation of 05/14/2019, patient is feeling better and she is a short of breath last bronchus spastic and wheezy and she is able to sit up on a chair. She was admitted for an acute COPD exacerbation. She was also feeling quite weak and tired related to her myasthenia gravis. She was given IV Solu Medrol. Feeling better and she is less short of breath. Note that the patient is maintained on 20 mg of prednisone outpatient basis and she's also Mestinon. No other complaints otherwise for now. No difficulties with swallowing. No diplopia. She is on IV Solu Medrol 125 every 6 hours. Objective - Vital Signs Vital signs: Vital Signs Temp 98.5 F 05/14/19 07:00 Pulse 107 H 05/14/19 07:00 Resp 18 05/14/19 07:25 BP 153/90 05/14/19 07:00 Pulse Ox 97 05/14/19 07:00 Intake & Output 05/13/19 05/14/19 05/14/19 18:59 06:59 18:59 Intake Total 440.939 9090.610 71.643 Balance 132.978 9088.610 71.643 Intake: Intake, IV Titration 5.252 157.610 71.643 Amount Insulin Regular 100 unit 5.252 157.610 71.643 In Sodium Chloride 0.9% 100 ml @ Titrate IV .Q0M [facility] Rx#:[id number] Oral 358 1080 Other: # Voids 2 - Exam GENERAL EXAM: Alert, very pleasant, obese white female, on 2 L of oxygen with a pulse ox of 95% comfortable in no apparent distress. HEAD: Normocephalic/atraumatic. EYES: Normal reaction of pupils, equal size. Conjunctiva pink, sclera white. NOSE: Clear with pink turbinates. THROAT: No erythema or exudates. NECK: No masses, no JVD, no thyroid enlargement, no adenopathy. CHEST: No chest wall deformity. Symmetrical expansion. LUNGS: Equal air entry with no crackles, wheeze, rhonchi or dullness. CVS: Regular rate and rhythm, normal S1 and S2, no gallops, no murmurs, no rubs ABDOMEN: Soft, nontender. No hepatosplenomegaly, normal bowel sounds, no guardi ng or rigidity. EXTREMITIES: No clubbing, no edema, no cyanosis, 2+ pulses and upper and lower extremities. MUSCULOSKELETAL: Muscle strength and tone normal. SPINE: No scoliosis or deformity SKIN: No rashes CENTRAL NERVOUS SYSTEM: Alert and oriented -3. No focal deficits, tone is normal in all 4 extremities. PSYCHIATRIC: Alert and oriented -3. Appropriate affect. Intact judgment and insight. - Labs CBC & Chem 7: 05/12/19 19:39 05/12/19 19:39 Labs: Abnormal Lab Results - Last 24 Hours (Table) 05/12/19 05/13/19 05/13/19 Range/Units 19:39 16:59 17:43 POC Glucose (mg/dL) 377 H 399 H (75-99) mg/dL Hemoglobin A1c 10.7 H (4.0-6.0) % 05/13/19 05/13/19 05/13/19 Range/Units 19:46 21:42 23:44 POC Glucose (mg/dL) 321 H 252 H 224 H (75-99) mg/dL Hemoglobin A1c (4.0-6.0) % 05/14/19 05/14/19 05/14/19 Range/Units 01:51 03:45 05:53 POC Glucose (mg/dL) 330 H 333 H 253 H (75-99) mg/dL Hemoglobin A1c (4.0-6.0) % 05/14/19 05/14/19 05/14/19 Range/Units 07:32 09:54 12:30 POC Glucose (mg/dL) 218 H 328 H 227 H (75-99) mg/dL Hemoglobin A1c (4.0-6.0) % Microbiology - Last 24 Hours (Table) 05/12/19 23:30 Urine Culture - Preliminary Urine,Clean Catch Assessment and Plan Plan: #1. Mild dyspnea, bilateral eyelid weakness, difficulty swallowing and voice hoarseness, possibly related to acute exacerbation of myasthenia gravis, the patient's COPD is felt to be stable in the exacerbation is probably related to underlying myasthenia gravis. The patient responded to IV Solu Medrol higher dose. #2. History of chronic obstructive pulmonary disease, stable #3. Mild intermittent bronchial asthma, currently stable #4. Obstructive sleep apnea, with AHI score of 25, on BiPAP therapy with pressures of 16/11, not consistently compliant #5. Hypertension #6. Diabetes mellitus #7. Seizure disorder #8. History of myasthenia gravis maintained on prednisone, intolerant to Mestinon #9. Glaucoma Plan Continued IV Solu-Medrol and 25 mg of the sixth of the gradual taper. Monitor the right. Outpatient medications of been ordered resume. In terms of the blood sugar control, the patient on insulin drip for blood sugar control. We'll continue to follow make further recommendations based on her progress. Neurology is on the case.
[2019-05-14 14:09] LABS: Glucose,Whole Blood 271 mg/dL (75-99)
[2019-05-14 16:23] LABS: Glucose,Whole Blood 236 mg/dL (75-99)
[2019-05-14] MEDS: SODIUM CHLORIDE 0.9% 1,000 ML IV SCH (16:42)
[2019-05-14 18:12] LABS: Glucose,Whole Blood 284 mg/dL (75-99)
[2019-05-14 20:32] LABS: Glucose,Whole Blood 246 mg/dL (75-99)
[2019-05-14] MEDS: AMITRIPTYLINE HCL 10 MG TAB PO SCH (21:33)
[2019-05-14 22:00] LABS: Glucose,Whole Blood 256 mg/dL (75-99)
--- NOTE | 2019-05-14 23:18 | PN ---
PROGRESS NOTE SUBJECTIVE: This is a 58-year-old white female, acute myasthenia gravis exacerbation, seen by Neurology and Pulmonology. She has been started on insulin drip to control her sugars. She is on high-dose IV steroids 125 every 6 hours for elevated glucose for elevated myasthenia gravis exacerbation as she is ALLERGIC TO MESTINON. She continues to improve from a medical standpoint. Cardiovascular: S1, S2. Lungs clear. GI soft. Hematology negative Homans. Ptosis is much improved on ophthalmologic exam. Her strength is improving with increasing movement of extremities, arms and legs. Continue current treatment. Follow up in next 24-48 hours. MMODL / IJN: [id number] /
[2019-05-15 00:06] LABS: Glucose,Whole Blood 264 mg/dL (75-99)
[2019-05-15] MEDS: methylPREDNISolone SOD SUCCI 125 MG/2 ML VIAL IV SCH ×2 (00:18→06:03)
[2019-05-15] MEDS: DILTIAZEM ORAL 30 MG TAB PO SCH ×4 (00:18→23:48)
[2019-05-15] MEDS: BUTALB/APAP/CAFF 50-325-40MG TAB PO PRN ×3 (01:02→16:22)
[2019-05-15] MEDS: ONDANSETRON 4 MG TAB PO PRN ×3 (01:02→16:21)
[2019-05-15] MEDS: SODIUM CHLORIDE 0.9% 1,000 ML IV SCH ×2 (01:33→16:18)
[2019-05-15 01:57] LABS: Glucose,Whole Blood 238 mg/dL (75-99)
[2019-05-15] MEDS: INSULIN REGULAR 100 UNIT in SODIUM CHLORIDE 0.9% 100 ML IV SCH ×3 (02:51→22:16)
[2019-05-15 03:54] LABS: Glucose,Whole Blood 222 mg/dL (75-99)
[2019-05-15 06:01] LABS: Glucose,Whole Blood 250 mg/dL (75-99)
[2019-05-15 07:53] LABS: Glucose,Whole Blood 299 mg/dL (75-99)
[2019-05-15] MEDS: POTASSIUM CHLORIDE ER 20 MEQ TAB.ER PO SCH (07:58)
[2019-05-15] MEDS: ALLOPURINOL 100 MG TAB PO SCH (08:00)
[2019-05-15] MEDS: PANTOPRAZOLE 40 MG TABLET PO SCH ×2 (08:00→16:24)
[2019-05-15] MEDS: ASPIRIN 81 MG PO SCH (08:00)
[2019-05-15] MEDS: CALCIUM CARBONATE 500 MG CHEWABLE PO SCH (08:00)
[2019-05-15] MEDS: TOPIRAMATE 25 MG TAB PO SCH ×2 (08:01→21:33)
[2019-05-15] MEDS: levETIRAcetam 250 MG TAB PO SCH ×2 (08:01→21:32)
[2019-05-15] MEDS: NYSTATIN 100,000 UNIT/ML SUSP 500,000 UNIT/5 ML CUP PO SCH ×5 (08:02→23:48)
[2019-05-15 10:20] LABS: Glucose,Whole Blood 277 mg/dL (75-99)
[2019-05-15 11:58] LABS: Glucose,Whole Blood 256 mg/dL (75-99)
[2019-05-15] MEDS: predniSONE 20 MG TAB PO SCH (12:00)
--- NOTE | 2019-05-15 13:28 | P.PN ---
Subjective Progress Note Date: 05/15/19 This is a 58-year-old white female patient of Dr. Thomas Ricketts with past medic al history of myasthenia gravis on chronic prednisone dose of 20 mg daily, patient is intolerant to Mestinon, apparently she had adverse reaction with the muscle twitching and weakness after taking Mestinon in the past, she is under the care of Dr. Schmidt. Other medical history includes COPD, mild intermittent chronic bronchial asthma, past history of smoking, in remission for 25 years, did smoke one to one half packs daily for 20 years. Patient presented on 05/13/[address] Ricketts's office as a direct admission for exacerbation of myasthenia gravis, apparently patient has been experiencing weakness in her right eye, she could not open her right eye for last few days, and today her left eye has also showed down, she has been having trouble swallowing, and having some voice hoarseness along with some mild shortness of breath. She was seen by Dr. Ricketts in the office and was sent for inpatient admission and started on high dose of IV steroids. Chest x-ray did not show any evidence of acute pulmonary process, vital signs are stable, her blood work is unremarkable. She does not have any other symptoms, no fever or chills, she does have some occasional cough nonproductive, no significant cough or congestion, no wheezing. Patient does have a history of obstructive sleep apnea, her AHI score of 26, and she has a BiPAP device at home with pressures of 16/11. However patient states she had been hospitalized in January for intestinal obstruction, and had to have a NG tube for a prolonged period of time. She states he has been difficult for her to wear the BiPAP since that time and she has not been as compliant with her device.. Other medical history is positive for seizure disorder she is maintained on Keppra, morbid obesity, retention, diabetes mellitus and glaucoma. Patient's PFT revealed FEV1 of 1.9 L or 77% of predicted, with a forced vital capacity of 2.28 L or 73% of predicted and FEV1/FVC of 105%, and no significant diffusion abnormality with a DLVA of 4.8 7/107 percent predicted, PFTs consistent with minimal obstruction. Vitals have been stable, patient is afebrile, she is on 2 L with a pulse ox of 95%, respirations are even and nonlabored, lung sounds are clear, diminished at the bases, with no rhonchi or wheezing, no complaint of chest pain, no cough or congestion. On today's evaluation of 05/14/2019, patient is feeling better and she is a short of breath last bronchus spastic and wheezy and she is able to sit up on a chair. She was admitted for an acute COPD exacerbation. She was also feeling quite weak and tired related to her myasthenia gravis. She was given IV Solu Medrol. Feeling better and she is less short of breath. Note that the patient is maintained on 20 mg of prednisone outpatient basis and she's also Mestinon. No other complaints otherwise for now. No difficulties with swallowing. No diplopia. She is on IV Solu Medrol 125 every 6 hours. On 05/15/2019 the patient is feeling better and she is feeling oh shortness of breath. No difficulty with swallowing and no diplopia. No double vision. Motor weakness still present but improved. She was on IV Solu-Medrol 125 mg every 6 hours. She has obviously become cushingoid and puffy. I've cut down the IV fluids to KVO. She is sitting up on a chair. No nausea. No vomiting. No abdominal pain. No other significant events over the past 24 hours. Objective - Vital Signs Vital signs: Vital Signs Temp 97.8 F 05/15/19 07:00 Pulse 92 05/15/19 07:00 Resp 16 05/15/19 07:00 BP 159/90 05/15/19 07:00 Pulse Ox 96 05/15/19 07:00 Intake & Output 05/14/19 05/15/19 05/15/19 18:59 06:59 18:59 Intake Total 214.092 6383.461 70.835 Balance 694.356 4377.461 70.835 Weight 120 kg Intake: Intake, IV Titration 119.685 845.461 70.835 Amount Insulin Regular 100 unit 119.685 95.461 70.835 In Sodium Chloride 0.9% 100 ml @ Titrate IV .Q0M [facility] Rx#:[id number] Sodium Chloride 0.9% 1, 750 000 ml @ 75 mls/hr IV . [id number] [facility] Rx#:[id number] Oral 240 300 Other: Voiding Method Toilet Toilet # Voids 2 2 - Exam GENERAL EXAM: Alert, very pleasant, obese white female, on 2 L of oxygen with a pulse ox of 95% comfortable in no apparent distress. HEAD: Normocephalic/atraumatic. EYES: Normal reaction of pupils, equal size. Conjunctiva pink, sclera white. NOSE: Clear with pink turbinates. THROAT: No erythema or exudates. NECK: No masses, no JVD, no thyroid enlargement, no adenopathy. CHEST: No chest wall deformity. Symmetrical expansion. LUNGS: Equal air entry with no crackles, wheeze, rhonchi or dullness. CVS: Regular rate and rhythm, normal S1 and S2, no gallops, no murmurs, no rubs ABDOMEN: Soft, nontender. No hepatosplenomegaly, normal bowel sounds, no guarding or rigidity. EXTREMITIES: No clubbing, no edema, no cyanosis, 2+ pulses and upper and lower extremities. MUSCULOSKELETAL: Muscle strength and tone normal. SPINE: No scoliosis or deformity SKIN: No rashes CENTRAL NERVOUS SYSTEM: Alert and oriented -3. No focal deficits, tone is normal in all 4 extremities. PSYCHIATRIC: Alert and oriented -3. Appropriate affect. Intact judgment and insight. - Labs CBC & Chem 7: 05/12/19 19:39 05/12/19 19:39 Labs: Abnormal Lab Results - Last 24 Hours (Table) 05/14/19 05/14/19 05/14/19 Range/Units 14:06 16:19 18:08 POC Glucose (mg/dL) 271 H 236 H 284 H (75-99) mg/dL 05/14/19 05/14/19 05/15/19 Range/Units 20:30 21:58 00:00 POC Glucose (mg/dL) 246 H 256 H 264 H (75-99) mg/dL 05/15/19 05/15/19 05/15/19 Range/Units 01:55 03:51 05:59 POC Glucose (mg/dL) 238 H 222 H 250 H (75-99) mg/dL 05/15/19 05/15/19 05/15/19 Range/Units 07:51 10:17 11:44 POC Glucose (mg/dL) 299 H 277 H 256 H (75-99) mg/dL Microbiology - Last 24 Hours (Table) 05/12/19 23:30 Urine Culture - Final Urine,Clean Catch Assessment and Plan Plan: #1. Mild dyspnea, bilateral eyelid weakness, difficulty swallowing and voice hoarseness, possibly related to acute exacerbation of myasthenia gravis, the patient's COPD is felt to be stable in the exacerbation is probably related to underlying myasthenia gravis. The patient responded to IV Solu Medrol higher dose. #2. History of chronic obstructive pulmonary disease, stable #3. Mild intermittent bronchial asthma, currently stable #4. Obstructive sleep apnea, with AHI score of 25, on BiPAP therapy with pressures of 16/11, not consistently compliant #5. Hypertension #6. Diabetes mellitus #7. Seizure disorder #8. History of myasthenia gravis maintained on prednisone, intolerant to Mesti non #9. Glaucoma Plan Stop the IV Solu-Medrol and start the patient a prednisone burst taper and this will be a very slow taper starting at 60 mg by mouth daily. Monitor pulmonary status. Monitor neurologic deficits in terms of myasthenia gravis. She is able to swallow. She has no diplopia. Gradually increase in level of activity as tolerated. Continue BiPAP. Continue rest of the medications. We'll follow.
[2019-05-15 14:31] LABS: Glucose,Whole Blood 293 mg/dL (75-99)
[2019-05-15 16:12] LABS: Glucose,Whole Blood 303 mg/dL (75-99)
[2019-05-15 18:07] LABS: Glucose,Whole Blood 272 mg/dL (75-99)
[2019-05-15 20:03] LABS: Glucose,Whole Blood 314 mg/dL (75-99)
[2019-05-15] MEDS: AMITRIPTYLINE HCL 10 MG TAB PO SCH (21:32)
[2019-05-15 22:14] LABS: Glucose,Whole Blood 368 mg/dL (75-99)
--- NOTE | 2019-05-15 23:57 | PN ---
PROGRESS NOTE . SUBJECTIVE: This is a 58-year-old white female admitted with myasthenia gravis exacerbation. She is sitting up in a chair tonight with the eyes opening her. Strength is greatly improving. She states she is 30% improved from admission. No difficulties with her swallowing. Her breathing is slowly improving. Cardiovascular S1, S2. Lungs are clear. Endocrine BMI is over 40. GI: Soft. Muscle strength is 4/5 x4 extremities. Ophthalmologic: Ptosis is improved. IMPRESSION AND PLAN: 1. Myasthenia gravis exacerbation. 2. Insulin-dependent diabetes mellitus, improved on insulin drip. 3. Obstructive sleep apnea on BiPAP. 4. Generalized weakness. Continue PT, OT. 5. Continue steroid taper. MMODL / IJN: [id number] /
[2019-05-16 00:05] LABS: Glucose,Whole Blood 351 mg/dL (75-99)
[2019-05-16] MEDS: methylPREDNISolone SOD SUCCI 125 MG/2 ML VIAL IV SCH ×4 (01:36→20:00)
[2019-05-16 02:12] LABS: Glucose,Whole Blood 319 mg/dL (75-99)
[2019-05-16] MEDS: NYSTATIN 100,000 UNIT/ML SUSP 500,000 UNIT/5 ML CUP PO SCH ×5 (04:04→20:00)
[2019-05-16 04:16] LABS: Glucose,Whole Blood 217 mg/dL (75-99)
[2019-05-16 06:23] LABS: Glucose,Whole Blood 220 mg/dL (75-99)
[2019-05-16] MEDS: ONDANSETRON 4 MG TAB PO PRN ×2 (06:32→15:50)
[2019-05-16] MEDS: BUTALB/APAP/CAFF 50-325-40MG TAB PO PRN ×2 (06:32→15:51)
[2019-05-16] MEDS: INSULIN REGULAR 100 UNIT in SODIUM CHLORIDE 0.9% 100 ML IV SCH ×2 (06:34→21:08)
[2019-05-16 08:19] LABS: Glucose,Whole Blood 200 mg/dL (75-99)
[2019-05-16] MEDS: DILTIAZEM ORAL 30 MG TAB PO SCH ×2 (09:16→15:48)
[2019-05-16] MEDS: PANTOPRAZOLE 40 MG TABLET PO SCH ×2 (09:16→17:26)
[2019-05-16] MEDS: ALLOPURINOL 100 MG TAB PO SCH (09:16)
[2019-05-16] MEDS: predniSONE 20 MG TAB PO SCH (09:17)
[2019-05-16] MEDS: ASPIRIN 81 MG PO SCH (09:17)
[2019-05-16] MEDS: TOPIRAMATE 25 MG TAB PO SCH ×2 (09:17→21:12)
[2019-05-16] MEDS: CALCIUM CARBONATE 500 MG CHEWABLE PO SCH (09:17)
[2019-05-16] MEDS: POTASSIUM CHLORIDE ER 20 MEQ TAB.ER PO SCH (09:17)
[2019-05-16] MEDS: levETIRAcetam 250 MG TAB PO SCH ×2 (09:20→21:12)
[2019-05-16 10:23] LABS: Glucose,Whole Blood 298 mg/dL (75-99)
[2019-05-16 12:11] LABS: Glucose,Whole Blood 359 mg/dL (75-99)
--- NOTE | 2019-05-16 12:27 | P.PN ---
Subjective Progress Note Date: 05/16/19 Principal diagnosis: Mild dyspnea, related to exacerbation of myasthenia gravis This is a 58-year-old white female patient of Dr. Thomas Ricketts with past medical history of myasthenia gravis on chronic prednisone dose of 20 mg daily, patient is intolerant to Mestinon, apparently she had adverse reaction with the muscle twitching and weakness after taking Mestinon in the past, she is under the care of Dr. Schmidt. Other medical history includes COPD, mild intermittent chronic bronchial asthma, past history of smoking, in remission for 25 years, did smoke one to one half packs daily for 20 years. Patient presented on 05/13/[address] Ricketts's office as a direct admission for exacerbation of myasthenia gravis, apparently patient has been experiencing weakness in her r ight eye, she could not open her right eye for last few days, and today her left eye has also showed down, she has been having trouble swallowing, and having some voice hoarseness along with some mild shortness of breath. She was seen by Dr. Ricketts in the office and was sent for inpatient admission and started on high dose of IV steroids. Chest x-ray did not show any evidence of acute pulmonary process, vital signs are stable, her blood work is unremarkable. She does not have any other symptoms, no fever or chills, she does have some occasional cough nonproductive, no significant cough or congestion, no wheezing. Patient does have a history of obstructive sleep apnea, her AHI score of 26, and she has a BiPAP device at home with pressures of 16/11. However patient states she had been hospitalized in January for intestinal obstruction, and had to have a NG tube for a prolonged period of time. She states he has been difficult for her to wear the BiPAP since that time and she has not been as compliant with her device.. Other medical history is positive for seizure disorder she is liz ntained on Keppra, morbid obesity, retention, diabetes mellitus and glaucoma. Patient's PFT revealed FEV1 of 1.9 L or 77% of predicted, with a forced vital capacity of 2.28 L or 73% of predicted and FEV1/FVC of 105%, and no significant diffusion abnormality with a DLVA of 4.8 7/107 percent predicted, PFTs consistent with minimal obstruction. Vitals have been stable, patient is afebrile, she is on 2 L with a pulse ox of 95%, respirations are even and nonlabored, lung sounds are clear, diminished at the bases, with no rhonchi or wheezing, no complaint of chest pain, no cough or congestion. On today's evaluation of 05/14/2019, patient is feeling better and she is a short of breath last bronchus spastic and wheezy and she is able to sit up on a chair. She was admitted for an acute COPD exacerbation. She was also feeling quite weak and tired related to her myasthenia gravis. She was given IV Solu Medrol. Feeling better and she is less short of breath. Note that the patient is maintained on 20 mg of prednisone outpatient basis and she's also Mestinon. No other complaints otherwise for now. No difficulties with swallowing. No diplopia. She is on IV Solu Medrol 125 every 6 hours. On 05/15/2019 the patient is feeling better and she is feeling oh shortness of breath. No difficulty with swallowing and no diplopia. No double vision. Motor weakness still present but improved. She was on IV Solu-Medrol 125 mg every 6 hours. She has obviously become cushingoid and puffy. I've cut down the IV fluids to KVO. She is sitting up on a chair. No nausea. No vomiting. No abdominal pain. No other significant events over the past 24 hours. On 05/16/2019 patient was switched back to IV Solu-Medrol because she felt that after being switched to prednisone she was having increased difficulty breathing with exertion, and she is complaining of blurry vision. This morning she seems to be calm and comfortable, still complains of exertional dyspnea, but seems to be in no acute distress at rest, room air pulse ox is 96%, afebrile, no cough or congestion, no wheezing. She is utilizing her BiPAP from home. Vital signs have been stable, she is back on IV Solu-Medrol at 125 mg every 6 hours. She is also on insulin infusion Objective - Vital Signs Vital signs: Vital Signs Temp 98.3 F 05/16/19 07:00 Pulse 86 05/16/19 07:00 Resp 17 05/16/19 07:00 BP 162/81 05/16/19 07:00 Pulse Ox 96 05/16/19 07:00 Intake & Output 05/15/19 05/16/19 05/16/19 18:59 06:59 18:59 Intake Total 150.499 122.336 34.34 Balance 150.499 122.336 34.34 Intake: Intake, IV Titration 150.499 122.336 34.34 Amount Insulin Regular 100 unit 150.499 122.336 34.34 In Sodium Chloride 0.9% 100 ml @ Titrate IV .Q0M [facility] Rx#:[id number] Other: Voiding Method Toilet Toilet Toilet # Voids 3 3 - Exam GENERAL EXAM: Alert, very pleasant, obese white female, on 2 L of oxygen with a pulse ox of 95% comfortable in no apparent distress. HEAD: Normocephalic/atraumatic. EYES: Normal reaction of pupils, equal size. Conjunctiva pink, sclera white. NOSE: Clear with pink turbinates. THROAT: No erythema or exudates. NECK: No masses, no JVD, no thyroid enlargement, no adenopathy. CHEST: No chest wall deformity. Symmetrical expansion. LUNGS: Equal air entry with no crackles, wheeze, rhonchi or dullness. CVS: Regular rate and rhythm, normal S1 and S2, no gallops, no murmurs, no rubs ABDOMEN: Soft, nontender. No hepatosplenomegaly, normal bowel sounds, no guarding or rigidity. EXTREMITIES: No clubbing, no edema, no cyanosis, 2+ pulses and upper and lower extremities. MUSCULOSKELETAL: Muscle strength and tone normal. SPINE: No scoliosis or deformity SKIN: No rashes CENTRAL NERVOUS SYSTEM: Alert and oriented -3. No focal deficits, tone is normal in all 4 extremities. PSYCHIATRIC: Alert and oriented -3. Appropriate affect. Intact judgment and insight. - Labs CBC & Chem 7: 05/12/19 19:39 05/12/19 19:39 Labs: Abnormal Lab Results - Last 24 Hours (Table) 05/15/19 05/15/19 05/15/19 Range/Units 14:31 16:11 18:06 POC Glucose (mg/dL) 293 H 303 H 272 H (75-99) mg/dL 05/15/19 05/15/19 05/15/19 Range/Units 19:49 22:12 23:51 POC Glucose (mg/dL) 314 H 368 H 351 H (75-99) mg/dL 05/16/19 05/16/19 05/16/19 Range/Units 02:00 04:02 06:10 POC Glucose (mg/dL) 319 H 217 H 220 H (75-99) mg/dL 05/16/19 05/16/19 05/16/19 Range/Units 08:08 10:10 12:07 POC Glucose (mg/dL) 200 H 298 H 359 H (75-99) mg/dL Assessment and Plan Plan: Assessment: #1. Mild dyspnea, bilateral eyelid weakness, difficulty swallowing and voice hoarseness, possibly related to acute exacerbation of myasthenia gravis #2. History of chronic obstructive pulmonary disease, stable #3. Mild intermittent bronchial asthma, currently stable #4. Obstructive sleep apnea, with AHI score of 25, on BiPAP therapy with pressures of 16/11, not consistently compliant #5. Hypertension #6. Diabetes mellitus #7. Seizure disorder #8. History of myasthenia gravis maintained on prednisone, intolerant to Mestinon #9. Glaucoma Plan: Patient's IV steroids have been resumed due to her complaint of worsening shortness of breath and blurry vision. Continue all other medical treatments. Requests re-evaluation by neurology service. Her COPD seems to be stable, continue breathing treatments on an as-needed basis. I performed a history & physical examination of the patient and discussed their management with my nurse practitioner, Deja Munoz. I reviewed the nurse practitioner's note and agree with the documented findings and plan of care. Lung sounds are positive for clear diminished. The findings and the impression was discussed with the patient. I attest to the documentation by the nurse practitioner. Time with Patient: Less than 30
--- NOTE | 2019-05-16 13:32 | P.PN ---
Progress Note - Text Progress Note Date: 05/16/19 SUBJECTIVE/INTERVAL EVENTS: Patient states that when her IV steroid was switched to prednisone 60 mg by mouth, she started having droopy eyes again along with strands of breath. Her symptoms has significant improved while on high-dose steroids. He she states that previously, when she was on IV steroids, the duration of treatment varied, shortness was 4 days and longus was 70s. He has discussed possibility of using IVIG as a treatment with her neurologist Dr. Schmidt. There was concern about damaging her kidneys, patient saw a evidence technician in the seventh patient can be started on IVIG although there is a risk of further kidney damage. PHYSICAL EXAMINATION: VITAL SIGNS: T 98.3 HR 86 RR 17 blood pressure 162/81 O2 saturation 96% on room air GEN.: NAD, pleasant and cooperative HEENT: NCAT, sclera without icterus NECK: Supple SKIN AND EXTREMITIES: Warm to touch, no edema NEURO: MENTAL STATUS: Patient alert and oriented to self, place, time. Able to name the current president. Speech fluent, able to name and repeat, following all commands readily. CRANIAL NERVES II THROUGH XII: II: Pupils are equal and reactive to light symmetrically. Visual solitario are intact. III, IV, : Significant ptosis bilaterally. Patient barely able to show a sliver of her eyes bilaterally and quickly weakens. Double vision in all direction. Extraocular movements full. No nystagmus. V: Facial sensation intact from V1-3. VII. No clear facial asymmetry. VIII: Hearing intact to finger rub bilaterally. IX, X: Symmetric palate elevation. XI: Shoulder shrug intact. XII: Tongue midline without fasciculation or atrophy. MOTOR: Normal bulk/tone. No pronator drift or tremor. Strength is 5/5 in b/l UE. Patient able to bend knees and get her feet off the bed briefly 3/5 strength. Patient is able to count up to 6 in 1 breath. SENSORY: Intact to light touch in all 4 extremities. REFLEXES: 2+ throughout. Toes are downgoing. COORDINATION: Finger to nose intact. No dysmetria. GAIT: Deferred due to b/l LE weakness. DIAGNOSTIC TESTING: LABORATORY: WBC 10.3 hemoglobin 12.2 platelet 212 sodium 139 potassium 4.1 chloride 104 bicarb 30 BUN 18 creatinine 0.94 glucose 205 AST 23 ALT 35 alk phos 114 urinalysis 4+ glucose, trace protein and ketone IMAGING: Chest x-ray 05/12/2019: No active cardiopulmonary disease. Normal heart. No change. ASSESSMENT: Ms. Rey is a 58 year-old woman with PMHx of diabetes, hypertension, morbid obesity, gout, renal disease, myasthenia gravis, anxiety, presenting with acute onset ptosis along with dysphagia and SOB x1 days. Patient with symptoms consistent with myasthenia gravis flare. Patient is only on prednisone 10mg BID at home. Patient also cannot take Mestinon due to it's side effects on this patient. Patient will need alternative treatment like periodic IVIG. At this time, agree with IV high-dose steroids q6h as patient has had issues with her blood sugar level while getting steroids. RECOMMENDATIONS: 1. Continue with high-dose IV methylprednisolone treatment for 5 days and then will consider tapering 2. blood glucose check q6h 3. PPI 4. Neurology will continue to follow. Please feel free to [employer] message me over the weekend with any questions or concerns.
[2019-05-16] MEDS: SODIUM CHLORIDE 0.9% 1,000 ML IV SCH (14:09)
[2019-05-16 14:22] LABS: Glucose,Whole Blood 369 mg/dL (75-99)
[2019-05-16 16:35] LABS: Glucose,Whole Blood 412 mg/dL (75-99)
[2019-05-16 18:19] LABS: Glucose,Whole Blood 352 mg/dL (75-99)
[2019-05-16 20:13] LABS: Glucose,Whole Blood 395 mg/dL (75-99)
[2019-05-16] MEDS: AMITRIPTYLINE HCL 10 MG TAB PO SCH (21:12)
--- NOTE | 2019-05-16 22:16 | PN ---
PROGRESS NOTE SUBJECTIVE: This is a white female. She was switched to oral prednisone 60 mg a day. She mainly had ptosis of her eyes. She had to be put right back on IV Solu-Medrol due to myasthenia gravis. Solu-Medrol is not being used for pulmonary status at this point. CARDIOVASCULAR: S1, S2. LUNGS: Clear. GI: Soft. MUSCULOSKELETAL: Sitting up in a chair. Able to knit. Ptosis is improving. ASSESSMENT: Myasthenia gravis flare. Continue current treatments. IV Solu-Medrol. Accu-Chek protocol. Increase insulin as needed. Please see further orders. MMODL / IJN: [id number] /
[2019-05-16 22:24] LABS: Glucose,Whole Blood 329 mg/dL (75-99)
[2019-05-17] MEDS: BUTALB/APAP/CAFF 50-325-40MG TAB PO PRN ×3 (00:03→19:47)
[2019-05-17] MEDS: DILTIAZEM ORAL 30 MG TAB PO SCH ×3 (00:03→16:22)
[2019-05-17] MEDS: NYSTATIN 100,000 UNIT/ML SUSP 500,000 UNIT/5 ML CUP PO SCH ×6 (00:03→19:47)
[2019-05-17] MEDS: ONDANSETRON 4 MG TAB PO PRN ×3 (00:03→19:47)
[2019-05-17 00:18] LABS: Glucose,Whole Blood 317 mg/dL (75-99)
[2019-05-17] MEDS: methylPREDNISolone SOD SUCCI 125 MG/2 ML VIAL IV SCH ×3 (01:59→16:22)
[2019-05-17 02:17] LABS: Glucose,Whole Blood 263 mg/dL (75-99)
[2019-05-17 04:23] LABS: Glucose,Whole Blood 291 mg/dL (75-99)
[2019-05-17] MEDS: INSULIN REGULAR 100 UNIT in SODIUM CHLORIDE 0.9% 100 ML IV SCH ×3 (05:29→22:21)
[2019-05-17 06:24] LABS: Glucose,Whole Blood 259 mg/dL (75-99)
[2019-05-17 08:22] LABS: Glucose,Whole Blood 360 mg/dL (75-99)
[2019-05-17] MEDS: PANTOPRAZOLE 40 MG TABLET PO SCH ×2 (08:28→16:22)
[2019-05-17] MEDS: CALCIUM CARBONATE 500 MG CHEWABLE PO SCH (08:28)
[2019-05-17] MEDS: ALLOPURINOL 100 MG TAB PO SCH (08:28)
[2019-05-17] MEDS: POTASSIUM CHLORIDE ER 20 MEQ TAB.ER PO SCH (08:28)
[2019-05-17] MEDS: levETIRAcetam 250 MG TAB PO SCH ×2 (08:29→20:34)
[2019-05-17] MEDS: TOPIRAMATE 25 MG TAB PO SCH ×2 (08:29→20:34)
[2019-05-17] MEDS: ASPIRIN 81 MG PO SCH (08:29)
[2019-05-17 10:09] LABS: Glucose,Whole Blood 237 mg/dL (75-99)
--- NOTE | 2019-05-17 11:24 | P.PN ---
Progress Note - Text Progress Note Date: 05/17/19 SUBJECTIVE/INTERVAL EVENTS: No acute overnight events. Patient's blood glucose continues to be elevated. Pt's ptosis and shortness of breath have improved significantly since yesterday. PHYSICAL EXAMINATION: VITAL SIGNS: T 98.0 HR 73 RR 16 SBP 172/100 Os saturation 99% on RA GEN.: NAD, pleasant and cooperative HEENT: NCAT, sclera without icterus NECK: Supple SKIN AND EXTREMITIES: Warm to touch, no edema NEURO: MENTAL STATUS: Patient alert and oriented to self, place, time. Able to name the current president. Speech fluent, able to name and repeat, following all commands readily. CRANIAL NERVES II THROUGH XII: II: Pupils are equal and reactive to light symmetrically. Visual solitario are intact. III, IV, : Significant ptosis bilaterally. Patient barely able to show a sliver of her eyes bilaterally and quickly weakens. Double vision in all direction. Extraocular movements full. No nystagmus. V: Facial sensation intact from V1-3. VII. No clear facial asymmetry. VIII: Hearing intact to finger rub bilaterally. IX, X: Symmetric palate elevation. XI: Shoulder shrug intact. XII: Tongue midline without fasciculation or atrophy. MOTOR: Normal bulk/tone. No pronator drift or tremor. Strength is 5/5 in b/l UE. Patient able to bend knees and get her feet off the bed briefly 3/5 strength. Patient is able to count up to 15 in 1 breath (patient only was able to come up to 6 yesterday). SENSORY: Intact to light touch in all 4 extremities. REFLEXES: 2+ throughout. Toes are downgoing. COORDINATION: Finger to nose intact. No dysmetria. GAIT: Deferred due to b/l LE weakness. DIAGNOSTIC TESTING: LABORATORY: WBC 10.3 hemoglobin 12.2 platelet 212 sodium 139 potassium 4.1 chloride 104 bicarb 30 BUN 18 creatinine 0.94 glucose 205 AST 23 ALT 35 alk phos 114 urinalysis 4+ glucose, trace protein and ketone 05/17/19: glucose 360 IMAGING: Chest x-ray 05/12/2019: No active cardiopulmonary disease. Normal heart. No change. ASSESSMENT: Ms. Rey is a 58 year-old woman with PMHx of diabetes, hypertension, morbid obesity, gout, renal disease, myasthenia gravis, anxiety, presenting with acute onset ptosis along with dysphagia and SOB x1 days. Patient with symptoms consistent with myasthenia gravis flare. Patient is only on prednisone 10mg BID at home. Patient also cannot take Mestinon due to it's side effects on this patient. Patient will need alternative treatment like periodic IVIG. At this time, agree with IV high-dose steroids q6h as patient has had issues with her blood sugar level while getting steroids. RECOMMENDATIONS: 1. Decrease frequency of high-dose IV methylprednisolone treatment to q8h today with plans to decrease frequency again tomorrow to q12h and then changed to by mouth. 2. blood glucose check q6h 3. PPI 4. Neurology will continue to follow.
[2019-05-17 12:11] LABS: Glucose,Whole Blood 265 mg/dL (75-99)
[2019-05-17 14:21] LABS: Glucose,Whole Blood 319 mg/dL (75-99)
[2019-05-17] MEDS: SODIUM CHLORIDE 0.9% 1,000 ML IV SCH (14:25)
--- NOTE | 2019-05-17 14:38 | P.PN ---
Subjective Progress Note Date: 05/17/19 [id number] female admitted with myasthenia gravis gravis flare and multiple other medical issues. Yesterday complained of difficulty breathing, blurred, double vision, difficulty swallowing and was returned back to IV steroids. Maintained on insulin drip. Reports her weakness is improving, he ambulated a small loop in the hallway today, tolerating exertion well. Reports her double, blurry vision is chronic, worsens with getting tired-improved today. Reports chronic difficulty swallowing is sporadic /inconsistent-denies difficulty eating/swallowing at this time. Reports hoarseness is chronic as well, increases with speaking, currently stable. We evaluated by neurology this morning, recommendations noted. Assessment stable, maintaining O2 sats in the 90s on room air. Objective - Vital Signs Vital signs: Vital Signs Temp 98.0 F 05/17/19 07:00 Pulse 73 05/17/19 07:00 Resp 16 05/17/19 07:00 BP 172/100 05/17/19 07:00 Pulse Ox 99 05/17/19 07:00 Intake & Output 05/16/19 05/17/19 05/17/19 18:59 06:59 18:59 Intake Total 401.423 248.514 725.635 Balance 401.423 248.514 725.635 Intake: Intake, IV Titration 81.423 128.514 65.635 Amount Insulin Regular 100 unit 81.423 128.514 65.635 In Sodium Chloride 0.9% 100 ml @ Titrate IV .Q0M [facility] Rx#:[id number] Oral 320 120 660 Other: Voiding Method Toilet Toilet # Voids 1 1 # Bowel Movements 1 - Exam PHYSICAL EXAM: VITAL SIGNS: As above GENERAL: Sitting up in chair, no acute distress, HEENT: Conjunctivae normal. eyes normal. Oral mucosa moist NECK: No JVD. No thyroid enlargement. No LNs CARDIOVASCULAR: S1, S2 regular.. No murmur RESPIRATION: Breath sounds diminished in the bases. No rhonchi or crackles. No wheezing ,No bronchial breathing. ABDOMEN: Soft, nontender . No guarding. no masses palpable. Bowel sounds heard. LEGS: No edema. no swelling. PSYCHIATRY: Alert and oriented X3, mood and affect normal. NERVOUS SYSTEM: Cranial N 2-12 grossly normal. Moves all 4 limbs. Diffuse weakness No focal deficits. Strength and sensation grossly intact.. Skin: no lesions, no rash Lymphatic system. No LN neck axilla or groin. - Labs CBC & Chem 7: 05/12/19 19:39 05/12/19 19:39 Labs: Abnormal Lab Results - Last 24 Hours (Table) 05/16/19 05/16/19 05/16/19 Range/Units 14:11 16:23 17:57 POC Glucose (mg/dL) 369 H 412 H 352 H (75-99) mg/dL 05/16/19 05/16/19 05/17/19 Range/Units 20:02 22:12 00:01 POC Glucose (mg/dL) 395 H 329 H 317 H (75-99) mg/dL 05/17/19 05/17/19 05/17/19 Range/Units 02:03 04:10 06:08 POC Glucose (mg/dL) 263 H 291 H 259 H (75-99) mg/dL 05/17/19 05/17/19 05/17/19 Range/Units 08:10 09:57 11:59 POC Glucose (mg/dL) 360 H 237 H 265 H (75-99) mg/dL Assessment and Plan Assessment: Acute myasthenia gravis flare. -COPD, stable -Chronic intermittent mild asthma, stable -Obstructive sleep apnea, on BiPAP -Diabetes mellitus -Gastroesophageal reflux disease -Hypertension -Osteoarthritis -Morbid obesity, BMI 48.4 -Anxiety -Former nicotine dependence -Glaucoma -Seizure disorder -History of myasthenia gravis, intolerant to Mestinon, maintained on prednisone Plan: Continue on current medication regime , PPI, monitoring and symptomatic treatment. IV steroids decreased as per neurology, maintain insulin drip. Further recommendations to follow. The impression and plan of care has been dictated as directed. : I performed a history and examination of this patient, discussed the same with the dictator. I agree with the dictator's note ,documented as a scribe. Any additional findings or plans will be noted.
[2019-05-17 16:24] LABS: Glucose,Whole Blood 358 mg/dL (75-99)
[2019-05-17 18:22] LABS: Glucose,Whole Blood 282 mg/dL (75-99)
[2019-05-17 20:17] LABS: Glucose,Whole Blood 312 mg/dL (75-99)
[2019-05-17] MEDS: AMITRIPTYLINE HCL 10 MG TAB PO SCH (20:34)
[2019-05-17 22:32] LABS: Glucose,Whole Blood 273 mg/dL (75-99)
[2019-05-18 00:05] LABS: Glucose,Whole Blood 269 mg/dL (75-99)
[2019-05-18] MEDS: DILTIAZEM ORAL 30 MG TAB PO SCH ×4 (00:06→22:57)
[2019-05-18] MEDS: NYSTATIN 100,000 UNIT/ML SUSP 500,000 UNIT/5 ML CUP PO SCH ×7 (00:06→22:59)
[2019-05-18] MEDS: methylPREDNISolone SOD SUCCI 125 MG/2 ML VIAL IV SCH ×2 (00:07→09:11)
[2019-05-18 02:05] LABS: Glucose,Whole Blood 215 mg/dL (75-99)
[2019-05-18 04:26] LABS: Glucose,Whole Blood 240 mg/dL (75-99)
[2019-05-18] MEDS: BUTALB/APAP/CAFF 50-325-40MG TAB PO PRN ×3 (06:09→22:17)
[2019-05-18] MEDS: ONDANSETRON 4 MG TAB PO PRN ×3 (06:09→22:17)
[2019-05-18 06:18] LABS: Glucose,Whole Blood 247 mg/dL (75-99)
[2019-05-18 08:07] LABS: Glucose,Whole Blood 284 mg/dL (75-99)
[2019-05-18] MEDS ORDERED: ERGOCALCIFEROL 50,000 UNIT CAP PO SCH (09:00)
[2019-05-18] MEDS: POTASSIUM CHLORIDE ER 20 MEQ TAB.ER PO SCH (09:08)
[2019-05-18] MEDS: CALCIUM CARBONATE 500 MG CHEWABLE PO SCH (09:08)
[2019-05-18] MEDS: ALLOPURINOL 100 MG TAB PO SCH (09:08)
[2019-05-18] MEDS: ASPIRIN 81 MG PO SCH (09:08)
[2019-05-18] MEDS: PANTOPRAZOLE 40 MG TABLET PO SCH ×2 (09:08→16:30)
[2019-05-18] MEDS: levETIRAcetam 250 MG TAB PO SCH ×2 (09:11→20:04)
[2019-05-18] MEDS: TOPIRAMATE 25 MG TAB PO SCH ×2 (09:11→20:04)
[2019-05-18] MEDS: INSULIN REGULAR 100 UNIT in SODIUM CHLORIDE 0.9% 100 ML IV SCH ×3 (09:44→23:17)
[2019-05-18 10:44] LABS: Glucose,Whole Blood 277 mg/dL (75-99)
[2019-05-18 11:10] LABS: Anisocytosis Slight; HGB 12.9 gm/dL (11.4-16.0); Hypochromasia Moderate; MCH 26.2 pg (25.0-35.0); MCHC 30.6 g/dL (31.0-37.0); MCV 85.8 fL (80.0-100.0); Platelet Count 240 k/uL (150-450); RDW 16.2 % (11.5-15.5)
[2019-05-18 11:12] LABS: Albumin 3.8 g/dL (3.5-5.0); Calcium 9.1 mg/dL (8.4-10.2); Potassium 3.7 mmol/L (3.5-5.1); Total Bilirubin 0.3 mg/dL (0.2-1.3); Total Protein 6.6 g/dL (6.3-8.2)
--- NOTE | 2019-05-18 11:29 | P.PN ---
Progress Note - Text Progress Note Date: 05/18/19 SUBJECTIVE/INTERVAL EVENTS: No acute overnight events. Patient's last dose of IV methylprednisolone around midnight, and patient has not gotten her medication when I evaluated her, which was around 10am. Patient's dosing basically already decreased, and patient with no report of worsening symptoms. Patient's glucose remains difficult to control PHYSICAL EXAMINATION: VITAL SIGNS: T 97.7 HR 84 RR 16 BP 167.93 O2 sat 96% on RA GEN.: NAD, pleasant and cooperative HEENT: NCAT, sclera without icterus NECK: Supple SKIN AND EXTREMITIES: Warm to touch, no edema NEURO: MENTAL STATUS: Patient alert and oriented to self, place, time. Able to name the current president. Speech fluent, able to name and repeat, following all commands readily. CRANIAL NERVES II THROUGH XII: II: Pupils are equal and reactive to light symmetrically. Visual solitario are intact. III, IV, : Significant ptosis bilaterally. Patient barely able to show a sliver of her eyes bilaterally and quickly weakens. Double vision in all direction. Extraocular movements full. No nystagmus. V: Facial sensation intact from V1-3. VII. No clear facial asymmetry. VIII: Hearing intact to finger rub bilaterally. IX, X: Symmetric palate elevation. XI: Shoulder shrug intact. XII: Tongue midline without fasciculation or atrophy. MOTOR: Normal bulk/tone. No pronator drift or tremor. Strength is 5/5 in b/l UE. Patient able to bend knees and get her feet off the bed briefly 3/5 strength. Patient is able to count up to 15 in 1 breath (patient only was able to come up to 6 yesterday). SENSORY: Intact to light touch in all 4 extremities. REFLEXES: 2+ throughout. Toes are downgoing. COORDINATION: Finger to nose intact. No dysmetria. GAIT: Deferred due to b/l LE weakness. DIAGNOSTIC TESTING: LABORATORY: WBC 10.3 hemoglobin 12.2 platelet 212 sodium 139 potassium 4.1 chloride 104 bicarb 30 BUN 18 creatinine 0.94 glucose 205 AST 23 ALT 35 alk phos 114 urinalysis 4+ glucose, trace protein and ketone 05/17/19: blood glucose 360 05/18/19: blood glucose 284 IMAGING: Chest x-ray 05/12/2019: No active cardiopulmonary disease. Normal heart. No change. ASSESSMENT: Ms. Rey is a 58 year-old woman with PMHx of diabetes, hypertension, morbid obesity, gout, renal disease, myasthenia gravis, anxiety, presenting with acute onset ptosis along with dysphagia and SOB x1 days. Patient with symptoms consistent with myasthenia gravis flare. Patient is only on prednisone 10mg BID at home. Patient also cannot take Mestinon due to it's side effects on this patient. Patient will need alternative treatment like periodic IVIG. Patient's symptoms have improved significantly with high-dose steroids. RECOMMENDATIONS: 1. Decrease frequency of high-dose IV methylprednisolone treatment to q12h today with plans to change route to by mouth. 2. Patient continues on insulin gtt at this time 3. PPI 4. Neurology will continue to follow.
[2019-05-18 11:41] LABS: Band Neutrophils % 2 %; Metamyelocytes # (M) 0.11 k/uL (0); Metamyelocytes % 1 %; Myelocytes % 2 %; Neutrophils % (M) 82 %; Nucleated Red Blood Cells 2 /100 WBC (0-0); Total Cells Counted 200
[2019-05-18 11:42] LABS: Lymphocytes # (M) 1.23 k/uL (1.0-4.8); Monocytes # (M) 0.45 k/uL (0-1.0); Myelocytes # (M) 0.22 k/uL (0); WBC 11.2 k/uL (3.8-10.6)
[2019-05-18 12:14] LABS: Glucose,Whole Blood 238 mg/dL (75-99)
[2019-05-18 14:08] LABS: Glucose,Whole Blood 311 mg/dL (75-99)
[2019-05-18 16:34] LABS: Glucose,Whole Blood 253 mg/dL (75-99)
--- NOTE | 2019-05-18 17:41 | P.PN ---
Subjective Progress Note Date: 05/18/19 [id number] female admitted with myasthenia gravis gravis flare and multiple other medical issues. Yesterday complained of difficulty breathing, blurred, double vision, difficulty swallowing and was returned back to IV steroids. Maintained on insulin drip. Reports her weakness is improving, he ambulated a small loop in the hallway today, tolerating exertion well. Reports her double, blurry vision is chronic, worsens with getting tired-improved today. Reports chronic difficulty swallowing is sporadic /inconsistent-denies difficulty eating/swallowing at this time. Reports hoarseness is chronic as well, increases with speaking, currently stable. We evaluated by neurology this morning, recommendations noted. Assessment stable, maintaining O2 sats in the 90s on room air. 05/18/2019 no overnight events. Sitting up in chair, doing well. Appears to be improving on high dose IV steroids. Maintained on insulin drip. Complained of migraine headaches during the night. Fluctuating difficulty in swallowing- stage chronic. Denies worsening of symptoms. No IVIG recommended at this time as per neurology Denies lightheadedness, dizziness or focal deficits-occasional double vision. Denies chest pain, palpitations or shortness of breath. Vital signs stable. Objective - Vital Signs Vital signs: Vital Signs Temp 97.7 F 05/18/19 14:39 Pulse 93 05/18/19 14:39 Resp 16 05/18/19 14:39 BP 183/93 05/18/19 14:39 Pulse Ox 97 05/18/19 14:39 Intake & Output 05/17/19 05/18/19 05/18/19 18:59 06:59 18:59 Intake Total 1035.488 104.909 123.658 Balance 1035.488 104.909 123.658 Intake: Intake, IV Titration 135.488 104.909 123.658 Amount Insulin Regular 100 unit 135.488 104.909 123.658 In Sodium Chloride 0.9% 100 ml @ Titrate IV .Q0M [facility] Rx#:[id number] Oral 900 Other: Voiding Method Toilet Toilet # Voids 3 2 - Exam PHYSICAL EXAM: VITAL SIGNS: As above GENERAL: Sitting up in chair, no acute distress, HEENT: Conjunctivae normal. eyes normal. Oral mucosa moist NECK: No JVD. No thyroid enlargement. No LNs CARDIOVASCULAR: S1, S2 regular.. No murmur RESPIRATION: Breath sounds diminished in the bases. No rhonchi crackles,wheezing. ABDOMEN: Soft, nontender . No guarding. no masses palpable. Bowel sounds heard. LEGS: Positive edema. no clubbing, no cyanosis PSYCHIATRY: Alert and oriented X3, mood and affect normal. NERVOUS SYSTEM: Cranial N 2-12 grossly normal. Moves all 4 limbs. Diffuse weakness, No focal deficits. Strength and sensation grossly intact.. Skin: no lesions, no rash Lymphatic system. No LN neck axilla or groin. - Labs CBC & Chem 7: 05/18/19 10:42 05/18/19 10:42 Labs: Abnormal Lab Results - Last 24 Hours (Table) 05/17/19 05/17/19 05/17/19 Range/Units 18:10 20:05 22:20 WBC (3.8-10.6) k/uL MCHC (31.0-37.0) g/dL RDW (11.5-15.5) % Neutrophils # (Manual) (1.3-7.7) k/uL Metamyelocytes # (Man) (0) k/uL Myelocytes # (Manual) (0) k/uL Nucleated RBCs (0-0) /100 WBC BUN (7-17) mg/dL Creatinine (0.52-1.04) mg/dL Glucose (74-99) mg/dL POC Glucose (mg/dL) 282 H 312 H 273 H (75-99) mg/dL Plasma Lactic Acid Chaka (0.7-2.0) mmol/L AST (14-36) U/L ALT (9-52) U/L 05/17/19 05/18/19 05/18/19 Range/Units 23:54 01:53 04:14 WBC (3.8-10.6) k/uL MCHC (31.0-37.0) g/dL RDW (11.5-15.5) % Neutrophils # (Manual) (1.3-7.7) k/uL Metamyelocytes # (Man) (0) k/uL Myelocytes # (Manual) (0) k/uL Nucleated RBCs (0-0) /100 WBC BUN (7-17) mg/dL Creatinine (0.52-1.04) mg/dL Glucose (74-99) mg/dL POC Glucose (mg/dL) 269 H 215 H 240 H (75-99) mg/dL Plasma Lactic Acid Chaka (0.7-2.0) mmol/L AST (14-36) U/L ALT (9-52) U/L 05/18/19 05/18/19 05/18/19 Range/Units 06:06 07:56 10:33 WBC (3.8-10.6) k/uL MCHC (31.0-37.0) g/dL RDW (11.5-15.5) % Neutrophils # (Manual) (1.3-7.7) k/uL Metamyelocytes # (Man) (0) k/uL Myelocytes # (Manual) (0) k/uL Nucleated RBCs (0-0) /100 WBC BUN (7-17) mg/dL Creatinine (0.52-1.04) mg/dL Glucose (74-99) mg/dL POC Glucose (mg/dL) 247 H 284 H 277 H (75-99) mg/dL Plasma Lactic Acid Chaka (0.7-2.0) mmol/L AST (14-36) U/L ALT (9-52) U/L 05/18/19 05/18/19 05/18/19 Range/Units 10:42 10:42 10:42 WBC 11.2 H (3.8-10.6) k/uL MCHC 30.6 L (31.0-37.0) g/dL RDW 16.2 H (11.5-15.5) % Neutrophils # (Manual) 9.40 H (1.3-7.7) k/uL Metamyelocytes # (Man) 0.11 H (0) k/uL Myelocytes # (Manual) 0.22 H (0) k/uL Nucleated RBCs 2 H (0-0) /100 WBC BUN 29 H (7-17) mg/dL Creatinine 1.21 H (0.52-1.04) mg/dL Glucose 270 H (74-99) mg/dL POC Glucose (mg/dL) (75-99) mg/dL Plasma Lactic Acid Chaka 4.7 H* (0.7-2.0) mmol/L AST 38 H (14-36) U/L ALT 56 H (9-52) U/L 05/18/19 05/18/19 05/18/19 Range/Units 11:59 13:57 15:01 WBC (3.8-10.6) k/uL MCHC (31.0-37.0) g/dL RDW (11.5-15.5) % Neutrophils # (Manual) (1.3-7.7) k/uL Metamyelocytes # (Man) (0) k/uL Myelocytes # (Manual) (0) k/uL Nucleated RBCs (0-0) /100 WBC BUN (7-17) mg/dL Creatinine (0.52-1.04) mg/dL Glucose (74-99) mg/dL POC Glucose (mg/dL) 238 H 311 H (75-99) mg/dL Plasma Lactic Acid Chaka 4.0 H* (0.7-2.0) mmol/L AST (14-36) U/L ALT (9-52) U/L Assessment and Plan Assessment: Acute myasthenia gravis flare. -COPD, stable -Chronic intermittent mild asthma, stable -Obstructive sleep apnea, on BiPAP -Diabetes mellitus -Gastroesophageal reflux disease -Hypertension -Osteoarthritis -Morbid obesity, BMI 48.4 -Anxiety -Former nicotine dependence -Glaucoma -Seizure disorder -History of myasthenia gravis, intolerant to Mestinon, maintained on prednisone Plan: Continue on current medication regime , PPI, monitoring and symptomatic treatment. IV steroid tapering as per neurology, maintain insulin drip. Speech therapy consulted for swallow evaluation. Attempting to locate Midrin . Discharge planning in progress for the next 24-48 hours. The impression and plan of care has been dictated as directed. : I performed a history and examination of this patient, discussed the same with the dictator. I agree with the dictator's note ,documented as a scribe. Any additional findings or plans will be noted.
[2019-05-18 18:30] LABS: Glucose,Whole Blood 291 mg/dL (75-99)
[2019-05-18] MEDS: SODIUM CHLORIDE 0.9% 1,000 ML IV SCH (19:37)
[2019-05-18] MEDS: AMITRIPTYLINE HCL 10 MG TAB PO SCH (20:04)
[2019-05-18 20:11] LABS: Glucose,Whole Blood 281 mg/dL (75-99)
[2019-05-18 22:25] LABS: Glucose,Whole Blood 311 mg/dL (75-99)
[2019-05-19] MEDS ORDERED: methylPREDNISolone SOD SUCCI 125 MG/2 ML VIAL IV SCH
[2019-05-19 00:18] LABS: Glucose,Whole Blood 250 mg/dL (75-99)
[2019-05-19] MEDS: MAG HYDROX/AL HYDROX/SIMETH 30 ML CUP PO PRN ×3 (01:34→20:54)
[2019-05-19 02:31] LABS: Glucose,Whole Blood 249 mg/dL (75-99)
[2019-05-19] MEDS: NYSTATIN 100,000 UNIT/ML SUSP 500,000 UNIT/5 ML CUP PO SCH ×5 (04:51→20:57)
[2019-05-19 04:54] LABS: Glucose,Whole Blood 269 mg/dL (75-99)
[2019-05-19 06:24] LABS: Glucose,Whole Blood 232 mg/dL (75-99)
[2019-05-19 08:23] LABS: Glucose,Whole Blood 224 mg/dL (75-99)
[2019-05-19] MEDS: ALLOPURINOL 100 MG TAB PO SCH (08:39)
[2019-05-19] MEDS: CALCIUM CARBONATE 500 MG CHEWABLE PO SCH (08:39)
[2019-05-19] MEDS: ASPIRIN 81 MG PO SCH (08:39)
[2019-05-19] MEDS: PANTOPRAZOLE 40 MG TABLET PO SCH ×2 (08:40→16:53)
[2019-05-19] MEDS: POTASSIUM CHLORIDE ER 20 MEQ TAB.ER PO SCH (08:40)
[2019-05-19] MEDS: DILTIAZEM ORAL 30 MG TAB PO SCH (08:41)
[2019-05-19] MEDS: TOPIRAMATE 25 MG TAB PO SCH ×2 (08:42→20:57)
[2019-05-19] MEDS: levETIRAcetam 250 MG TAB PO SCH ×2 (08:42→20:57)
[2019-05-19 10:18] LABS: Glucose,Whole Blood 278 mg/dL (75-99)
[2019-05-19] MEDS: INSULIN REGULAR 100 UNIT in SODIUM CHLORIDE 0.9% 100 ML IV SCH ×2 (10:38→21:46)
[2019-05-19 12:33] LABS: Glucose,Whole Blood 246 mg/dL (75-99)
[2019-05-19] MEDS: predniSONE 20 MG TAB PO SCH (12:53)
--- NOTE | 2019-05-19 13:01 | P.PN ---
Progress Note - Text Progress Note Date: 05/19/19 SUBJECTIVE/INTERVAL EVENTS: No acute overnight events. Patient having difficulty with breathing since yesterday. States that her body has "ballooned up like a sausage" due to all the fluids she's been getting. Admitting team planning to give her lasix. Last dose if IV methylprednisolone was around 10pm last night. Patient is getting her oral prednisone at 1pm. PHYSICAL EXAMINATION: VITAL SIGNS: T 98 HR 80 5RR 16 blood pressure 187/97 O2 saturation 97% on room air GEN.: NAD, pleasant and cooperative HEENT: NCAT, sclera without icterus NECK: Supple SKIN AND EXTREMITIES: Warm to touch, no edema NEURO: MENTAL STATUS: Patient alert and oriented to self, place, time. Able to name the current president. Speech fluent, able to name and repeat, following all commands readily. CRANIAL NERVES II THROUGH XII: II: Pupils are equal and reactive to light symmetrically. Visual solitario are intact. III, IV, : Significant ptosis bilaterally. Patient barely able to show a sliver of her eyes bilaterally and quickly weakens. Double vision in all direction. Extraocular movements full. No nystagmus. V: Facial sensation intact from V1-3. VII. No clear facial asymmetry. VIII: Hearing intact to finger rub bilaterally. IX, X: Symmetric palate elevation. XI: Shoulder shrug intact. XII: Tongue midline without fasciculation or atrophy. MOTOR: Normal bulk/tone. No pronator drift or tremor. Strength is 5/5 in b/l UE. Patient able to bend knees and get her feet off the bed briefly 3/5 strength. Patient is able to count up to 6 yesterday (when's she's doing well, she can count up to 15) SENSORY: Intact to light touch in all 4 extremities. REFLEXES: 2+ throughout. Toes are downgoing. COORDINATION: Finger to nose intact. No dysmetria. GAIT: Deferred due to b/l LE weakness. DIAGNOSTIC TESTING: LABORATORY: WBC 10.3 hemoglobin 12.2 platelet 212 sodium 139 potassium 4.1 chloride 104 bicarb 30 BUN 18 creatinine 0.94 glucose 205 AST 23 ALT 35 alk phos 114 urinalysis 4+ glucose, trace protein and ketone 05/17/19: blood glucose 360 05/18/19: blood glucose 284 05/19/2019: Blood glucose 278 IMAGING: Chest x-ray 05/12/2019: No active cardiopulmonary disease. Normal heart. No change. ASSESSMENT: Ms. Rey is a 58 year-old woman with PMHx of diabetes, hypertension, morbid obesity, gout, renal disease, myasthenia gravis, anxiety, presenting with acute onset ptosis along with dysphagia and SOB x1 days. Patient with symptoms consistent with myasthenia gravis flare. Patient is only on prednisone 10mg BID at home. Patient also cannot take Mestinon due to it's side effects on this patient. Patient will need alternative treatment like periodic IVIG. Patient's symptoms have improved significantly with high-dose steroids. RECOMMENDATIONS: 1. Decrease steroid dose to PO 60mg qday. 2. Blood gluose management per primary team 3. PPI 4. Neurology will continue to follow.
[2019-05-19] MEDS: FUROSEMIDE 10 MG/ML 4 ML VIAL IV SCH ×2 (14:07→21:30)
--- NOTE | 2019-05-19 14:40 | FL ---
EXAMINATION TYPE: FL barium swallow w video DATE OF EXAM: 05/19/2019 MODIFIED SWALLOW / DEGLUTITION STUDY CLINICAL HISTORY: Dysphagia. Exacerbation of known Myasthenia gravis . TECHNIQUE: Deglutition study is performed utilizing thin liquid barium, honey and nectar thick liqui d barium, barium thick applesauce, and barium coated cracker. A total of 1 minute 13 seconds of fluor oscopic time was utilized during procedure. Sterile spot images are saved. COMPARISON: None. FINDINGS: The exam is slightly suboptimal secondary to patient's large body habitus. The oral and pha ryngeal phases show satisfactory initiation and propagation with all modalities tested. Normal masti cation is seen with solid modalities tested. There is no evidence of penetration or aspiration with any modality tested. No significant pharyngeal residue was appreciated. IMPRESSION: Normal deglutition study today. Please refer to speech therapist notes for further deta ils if necessary.
--- NOTE | 2019-05-19 14:56 | P.PN ---
Subjective Progress Note Date: 05/19/19 [id number] female admitted with myasthenia gravis gravis flare and multiple other medical issues. Yesterday complained of difficulty breathing, blurred, double vision, difficulty swallowing and was returned back to IV steroids. Maintained on insulin drip. Reports her weakness is improving, he ambulated a small loop in the hallway today, tolerating exertion well. Reports her double, blurry vision is chronic, worsens with getting tired-improved today. Reports chronic difficulty swallowing is sporadic /inconsistent-denies difficulty eating/swallowing at this time. Reports hoarseness is chronic as well, increases with speaking, currently stable. We evaluated by neurology this morning, recommendations noted. Assessment stable, maintaining O2 sats in the 90s on room air. 05/18/2019 no overnight events. Sitting up in chair, doing well. Appears to be improving on high dose IV steroids. Maintained on insulin drip. Complained of migraine headaches during the night. Fluctuating difficulty in swallowing- stage chronic. Denies worsening of symptoms. No IVIG recommended at this time as per neurology Denies lightheadedness, dizziness or focal deficits-occasional double vision. Denies chest pain, palpitations or shortness of breath. Vital signs stable. 05/19/2019 high lactic secondary to liver disease, asymptomatic. Increased edema. Hypertensive, systolic blood pressures in the 170s post-administration of antihypertensives. Evaluated by neurology this morning, IV steroid treatment completed, converted to oral steroids. Maintained on insulin drip. Denies chest pain, palpitations or shortness of breath. Complains of midepigastric burning. Denies lightheadedness ,dizziness. Scheduled for MBS today. Vital signs stable, maintaining O2 sats in the high 90s on room air. Objective - Vital Signs Vital signs: Vital Signs Temp 98 F 05/19/19 14:35 Pulse 100 05/19/19 14:35 Resp 16 05/19/19 14:35 BP 169/76 05/19/19 14:35 Pulse Ox 97 05/19/19 14:35 Intake & Output 05/18/19 05/19/19 05/19/19 18:59 06:59 18:59 Intake Total 610.612 7769.152 56.240 Balance 261.019 3002.152 56.240 Weight 130 kg Intake: Intake, IV Titration 147.915 186.152 56.240 Amount Insulin Regular 100 unit 147.915 136.152 56.240 In Sodium Chloride 0.9% 100 ml @ Titrate IV .Q0M [facility] Rx#:[id number] Sodium Chloride 0.9% 1, 50 000 ml @ 5 mls/hr IV . Q24H [facility] Rx#:[id number] Oral 1080 Other: Voiding Method Toilet Toilet # Voids 2 2 - Exam PHYSICAL EXAM: VITAL SIGNS: As above GENERAL: Sitting up in chair, no acute distress, HEENT: Conjunctivae normal. eyes normal. Oral mucosa moist NECK: No JVD. No thyroid enlargement. No LNs CARDIOVASCULAR: S1, S2 regular. No murmur. RESPIRATION: Breath sounds diminished in the bases. Scattered rhonchi, no crackles,wheezing. ABDOMEN: Soft, nontender . No guarding. no masses palpable. Bowel sounds heard. LEGS: Positive edema. no clubbing, no cyanosis PSYCHIATRY: Alert and oriented X3, mood and affect normal. NERVOUS SYSTEM: Cranial N 2-12 grossly normal. Moves all 4 limbs. Diffuse weakness, No focal deficits. Strength and sensation grossly intact.. Skin: no lesions, no rash - Labs CBC & Chem 7: 05/18/19 10:42 05/18/19 10:42 Labs: Abnormal Lab Results - Last 24 Hours (Table) 05/18/19 05/18/19 05/18/19 Range/Units 15:01 16:19 18:19 POC Glucose (mg/dL) 253 H 291 H (75-99) mg/dL Plasma Lactic Acid Chaka 4.0 H* (0.7-2.0) mmol/L 05/18/19 05/18/19 05/18/19 Range/Units 18:37 19:59 22:14 POC Glucose (mg/dL) 281 H 311 H (75-99) mg/dL Plasma Lactic Acid Chaka 2.4 H* (0.7-2.0) mmol/L 05/18/19 05/19/19 05/19/19 Range/Units 22:31 00:06 02:15 POC Glucose (mg/dL) 250 H (75-99) mg/dL Plasma Lactic Acid Chaka 2.5 H* 5.2 H* (0.7-2.0) mmol/L 05/19/19 05/19/19 05/19/19 Range/Units 02:20 04:43 06:13 POC Glucose (mg/dL) 249 H 269 H 232 H (75-99) mg/dL Plasma Lactic Acid Chaka (0.7-2.0) mmol/L 05/19/19 05/19/19 05/19/19 Range/Units 08:11 10:03 12:21 POC Glucose (mg/dL) 224 H 278 H 246 H (75-99) mg/dL Plasma Lactic Acid Chaka (0.7-2.0) mmol/L Assessment and Plan Assessment: Acute myasthenia gravis flare. -COPD, stable -Chronic intermittent mild asthma, stable -Obstructive sleep apnea, on BiPAP -Diabetes mellitus -Gastroesophageal reflux disease -Hypertension, uncontrolled -Osteoarthritis -Morbid obesity, BMI 48.4 -Anxiety -Former nicotine dependence -Glaucoma -Seizure disorder -History of myasthenia gravis, intolerant to Mestinon, maintained on prednisone Plan: Continue on current medication regime , PPI, monitoring and symptomatic treatment. Cardizem increased from uncontrolled hypertension. Lasix IV push ordered for her worsening edema. Steroids converted to oral as per neurology. maintain insulin drip. MBS pending . Further recommendations to follow. The impression and plan of care has been dictated as directed. : I performed a history and examination of this patient, discussed the same with the dictator. I agree with the dictator's note ,documented as a scribe. Any additional findings or plans will be noted.
[2019-05-19 16:47] LABS: Glucose,Whole Blood 217 mg/dL (75-99)
[2019-05-19] MEDS: DILTIAZEM ORAL 60 MG TAB PO SCH ×2 (16:51→21:31)
[2019-05-19] MEDS: SODIUM CHLORIDE 0.9% 1,000 ML IV SCH (17:47)
[2019-05-19] MEDS ORDERED: ACETAMINOPHEN TAB 500 MG TAB PO PRN (18:37)
[2019-05-19 18:57] LABS: Glucose,Whole Blood 276 mg/dL (75-99)
[2019-05-19] MEDS: BUTALB/APAP/CAFF 50-325-40MG TAB PO PRN (20:55)
[2019-05-19] MEDS: ONDANSETRON 4 MG TAB PO PRN (20:55)
[2019-05-19] MEDS: AMITRIPTYLINE HCL 10 MG TAB PO SCH (20:56)
[2019-05-19 21:17] LABS: Glucose,Whole Blood 215 mg/dL (75-99)
[2019-05-19 23:07] LABS: Glucose,Whole Blood 226 mg/dL (75-99)
[2019-05-20 01:29] LABS: Glucose,Whole Blood 217 mg/dL (75-99)
[2019-05-20] MEDS: NYSTATIN 100,000 UNIT/ML SUSP 500,000 UNIT/5 ML CUP PO SCH ×7 (01:31→23:34)
[2019-05-20 03:23] LABS: Glucose,Whole Blood 198 mg/dL (75-99)
[2019-05-20] MEDS: MAG HYDROX/AL HYDROX/SIMETH 30 ML CUP PO PRN ×3 (03:25→21:01)
[2019-05-20] MEDS: BUTALB/APAP/CAFF 50-325-40MG TAB PO PRN ×3 (03:25→21:00)
[2019-05-20 05:05] LABS: Glucose,Whole Blood 151 mg/dL (75-99)
[2019-05-20 06:59] LABS: Glucose,Whole Blood 143 mg/dL (75-99)
[2019-05-20 07:19] VITALS: RESP 16
[2019-05-20 08:17] LABS: Basophils # (A) 0.3 k/uL (0-0.2); Basophils % (A) 2 %; Eosinophils % (A) 0 %; HGB 13.2 gm/dL (11.4-16.0); Hypochromasia Slight; Lymphocytes # (A) 2.2 k/uL (1.0-4.8); Lymphocytes % (A) 19 %; MCH 26.1 pg (25.0-35.0); MCHC 31.4 g/dL (31.0-37.0); MCV 83.3 fL (80.0-100.0); Mean Platelet Volume 7.3; Monocytes # (A) 0.9 k/uL (0-1.0); Monocytes % (A) 8 %; Neutrophils # (A) 8.3 k/uL (1.3-7.7); Neutrophils % (A) 70 %; Platelet Count 191 k/uL (150-450); RBC 5.04 m/uL (3.80-5.40); RDW 15.7 % (11.5-15.5); WBC 11.8 k/uL (3.8-10.6)
[2019-05-20 08:25] LABS: Potassium 3.2 mmol/L (3.5-5.1)
[2019-05-20] MEDS: INSULIN REGULAR 100 UNIT in SODIUM CHLORIDE 0.9% 100 ML IV SCH (08:57)
[2019-05-20] MEDS: PANTOPRAZOLE 40 MG TABLET PO SCH ×2 (08:57→19:30)
[2019-05-20] MEDS: FUROSEMIDE 10 MG/ML 4 ML VIAL IV SCH ×2 (09:49→20:31)
[2019-05-20] MEDS: POTASSIUM CHLORIDE ER 20 MEQ TAB.ER PO SCH (09:49)
[2019-05-20] MEDS: predniSONE 20 MG TAB PO SCH (09:49)
[2019-05-20] MEDS: TOPIRAMATE 25 MG TAB PO SCH ×2 (09:50→20:31)
[2019-05-20] MEDS: ALLOPURINOL 100 MG TAB PO SCH (09:50)
[2019-05-20] MEDS: DILTIAZEM ORAL 60 MG TAB PO SCH ×3 (09:50→21:01)
[2019-05-20] MEDS: levETIRAcetam 250 MG TAB PO SCH ×2 (09:50→20:31)
[2019-05-20] MEDS: CALCIUM CARBONATE 500 MG CHEWABLE PO SCH (09:50)
[2019-05-20] MEDS: ASPIRIN 81 MG PO SCH (09:51)
[2019-05-20 11:02] LABS: Glucose,Whole Blood 209 mg/dL (75-99)
[2019-05-20 13:14] LABS: Glucose,Whole Blood 238 mg/dL (75-99)
--- NOTE | 2019-05-20 14:18 | P.PN ---
Progress Note - Text Progress Note Date: 05/20/19 SUBJECTIVE/INTERVAL EVENTS: No acute overnight events. Patient states that she urinated about 7 L of water yesterday after Lasix. Patient is still on insulin drip. Patient feeling much better PHYSICAL EXAMINATION: VITAL SIGNS: T 98 HR 80 5RR 16 blood pressure 187/97 O2 saturation 97% on room air GEN.: NAD, pleasant and cooperative HEENT: NCAT, sclera without icterus NECK: Supple SKIN AND EXTREMITIES: Warm to touch, no edema NEURO: MENTAL STATUS: Patient alert and oriented to self, place, time. Able to name the current president. Speech fluent, able to name and repeat, following all commands readily. CRANIAL NERVES II THROUGH XII: II: Pupils are equal and reactive to light symmetrically. Visual solitario are intact. III, IV, : Significant ptosis bilaterally. Patient barely able to show a sliver of her eyes bilaterally and quickly weakens. Double vision in all direction. Extraocular movements full. No nystagmus. V: Facial sensation intact from V1-3. VII. No clear facial asymmetry. VIII: Hearing intact to finger rub bilaterally. IX, X: Symmetric palate elevation. XI: Shoulder shrug intact. XII: Tongue midline without fasciculation or atrophy. MOTOR: Normal bulk/tone. No pronator drift or tremor. Strength is 5/5 in b/l UE. Patient able to bend knees and get her feet off the bed briefly 3/5 strength. Patient is able to count up to 20 today SENSORY: Intact to light touch in all 4 extremities. REFLEXES: 2+ throughout. Toes are downgoing. COORDINATION: Finger to nose intact. No dysmetria. GAIT: Deferred due to b/l LE weakness. DIAGNOSTIC TESTING: LABORATORY: WBC 10.3 hemoglobin 12.2 platelet 212 sodium 139 potassium 4.1 chloride 104 bicarb 30 BUN 18 creatinine 0.94 glucose 205 AST 23 ALT 35 alk phos 114 urinalysis 4+ glucose, trace protein and ketone 05/17/19: blood glucose 360 05/18/19: blood glucose 284 05/19/2019: Blood glucose 278 IMAGING: Chest x-ray 05/12/2019: No active cardiopulmonary disease. Normal heart. No change. ASSESSMENT: Ms. Rey is a 58 year-old woman with PMHx of diabetes, hypertension, morbid obesity, gout, renal disease, myasthenia gravis, anxiety, presenting with acute onset ptosis along with dysphagia and SOB x1 days. Patient with symptoms consistent with myasthenia gravis flare. Patient is only on prednisone 10mg BID at home. Patient also cannot take Mestinon due to it's side effects on this patient. Patient will need alternative treatment like periodic IVIG. Patient's symptoms have improved significantly with high-dose steroids. RECOMMENDATIONS: 1. continue with PO prednisone 60mg qday x 3 days, then 50mg qday x3 days, then 40mg qday 3 days, then 30mg qday x3 days, then 20mg qday x3 days, then 10mg daily. 2. Blood gluose management per primary team 3. PPI 4. Neurology will sign off at this time. Feel free to [employer] message me over the weekend if you have any questions or concerns
[2019-05-20 14:19] VITALS: BMI 50.1
[2019-05-20 15:12] LABS: Glucose,Whole Blood 341 mg/dL (75-99)
--- NOTE | 2019-05-20 16:17 | P.PN ---
Subjective Progress Note Date: 05/20/19 [id number] female admitted with myasthenia gravis gravis flare and multiple other medical issues. Yesterday complained of difficulty breathing, blurred, double vision, difficulty swallowing and was returned back to IV steroids. Maintained on insulin drip. Reports her weakness is improving, he ambulated a small loop in the hallway today, tolerating exertion well. Reports her double, blurry vision is chronic, worsens with getting tired-improved today. Reports chronic difficulty swallowing is sporadic /inconsistent-denies difficulty eating/swallowing at this time. Reports hoarseness is chronic as well, increases with speaking, currently stable. We evaluated by neurology this morning, recommendations noted. Assessment stable, maintaining O2 sats in the 90s on room air. 05/18/2019 no overnight events. Sitting up in chair, doing well. Appears to be improving on high dose IV steroids. Maintained on insulin drip. Complained of migraine headaches during the night. Fluctuating difficulty in swallowing- stage chronic. Denies worsening of symptoms. No IVIG recommended at this time as per neurology Denies lightheadedness, dizziness or focal deficits-occasional double vision. Denies chest pain, palpitations or shortness of breath. Vital signs stable. 05/19/2019 high lactic secondary to liver disease, asymptomatic. Increased edema. Hypertensive, systolic blood pressures in the 170s post-administration of antihypertensives. Evaluated by neurology this morning, IV steroid treatment completed, converted to oral steroids. Maintained on insulin drip. Denies chest pain, palpitations or shortness of breath. Complains of midepigastric burning. Denies lightheadedness ,dizziness. Scheduled for MBS today. Vital signs stable, maintaining O2 sats in the high 90s on room air. 05/20/2019 Lasix IV push initiated yesterday, diuresed well with 24-hour I&O reflecting a negative fluid balance. Now on oral prednisone. significant clinical improvement.VSS. Creatinine 1.29. Hypertensive with systolic blood pressures 160s when 170s. Objective - Vital Signs Vital signs: Vital Signs Temp 97.9 F 05/20/19 07:00 Pulse 98 05/20/19 08:05 Resp 16 05/20/19 08:05 BP 173/102 05/20/19 07:00 Pulse Ox 99 05/20/19 07:00 Intake & Output 0905/20/19 05/20/19 18:59 06:59 18:59 Intake Total 86.675 99.485 8.013 Output Total 3600 3800 Balance -3513.325 -3700.515 8.013 Weight 130 kg 124.32 kg Intake: Intake, IV Titration 86.675 99.485 8.013 Amount Insulin Regular 100 unit 86.675 99.485 8.013 In Sodium Chloride 0.9% 100 ml @ Titrate IV .Q0M [facility] Rx#:[id number] Output: Urine 3600 3800 Other: Voiding Method Toilet Toilet Toilet - Exam PHYSICAL EXAM: VITAL SIGNS: As above GENERAL: Sitting up in chair, no acute distress, HEENT: Conjunctivae normal. eyes normal. Oral mucosa moist NECK: No JVD. No thyroid enlargement. No LNs CARDIOVASCULAR: S1, S2 regular. No murmur. RESPIRATION: Breath sounds diminished in the bases. No rhonchi, no crackles,wheezing. ABDOMEN: Soft, nontender . No guarding. no masses palpable. Bowel sounds heard. LEGS: Improving edema. no clubbing, no cyanosis PSYCHIATRY: Alert and oriented X3, mood and affect normal. NERVOUS SYSTEM: Cranial N 2-12 grossly normal. Moves all 4 limbs. Diffuse weakness, No focal deficits. Strength and sensation grossly intact.. Skin: no lesions, no rash - Labs CBC & Chem 7: 05/20/19 07:21 05/20/19 07:21 Labs: Abnormal Lab Results - Last 24 Hours (Table) 05/19/19 05/19/19 05/19/19 Range/Units 10:03 12:21 16:36 WBC (3.8-10.6) k/uL RDW (11.5-15.5) % Neutrophils # (1.3-7.7) k/uL Basophils # (0-0.2) k/uL Potassium (3.5-5.1) mmol/L Chloride (98-107) mmol/L Carbon Dioxide (22-30) mmol/L BUN (7-17) mg/dL Creatinine (0.52-1.04) mg/dL Glucose (74-99) mg/dL POC Glucose (mg/dL) 278 H 246 H 217 H (75-99) mg/dL 05/19/19 05/19/19 05/19/19 Range/Units 18:45 21:06 22:57 WBC (3.8-10.6) k/uL RDW (11.5-15.5) % Neutrophils # (1.3-7.7) k/uL Basophils # (0-0.2) k/uL Potassium (3.5-5.1) mmol/L Chloride (98-107) mmol/L Carbon Dioxide (22-30) mmol/L BUN (7-17) mg/dL Creatinine (0.52-1.04) mg/dL Glucose (74-99) mg/dL POC Glucose (mg/dL) 276 H 215 H 226 H (75-99) mg/dL 05/20/19 05/20/19 05/20/19 Range/Units 01:17 03:11 04:54 WBC (3.8-10.6) k/uL RDW (11.5-15.5) % Neutrophils # (1.3-7.7) k/uL Basophils # (0-0.2) k/uL Potassium (3.5-5.1) mmol/L Chloride (98-107) mmol/L Carbon Dioxide (22-30) mmol/L BUN (7-17) mg/dL Creatinine (0.52-1.04) mg/dL Glucose (74-99) mg/dL POC Glucose (mg/dL) 217 H 198 H 151 H (75-99) mg/dL 05/20/19 05/20/19 05/20/19 Range/Units 06:48 07:21 07:21 WBC 11.8 H (3.8-10.6) k/uL RDW 15.7 H (11.5-15.5) % Neutrophils # 8.3 H (1.3-7.7) k/uL Basophils # 0.3 H (0-0.2) k/uL Potassium 3.2 L (3.5-5.1) mmol/L Chloride 95 L (98-107) mmol/L Carbon Dioxide 39 H (22-30) mmol/L BUN 28 H (7-17) mg/dL Creatinine 1.29 H (0.52-1.04) mg/dL Glucose 134 H (74-99) mg/dL POC Glucose (mg/dL) 143 H (75-99) mg/dL Assessment and Plan Assessment: Acute myasthenia gravis flare. -COPD, stable -Chronic intermittent mild asthma, stable -Obstructive sleep apnea, on BiPAP -Diabetes mellitus -Gastroesophageal reflux disease -Hypertension, uncontrolled -Osteoarthritis -Morbid obesity, BMI 48.4 -Anxiety -Former nicotine dependence -Glaucoma -Seizure disorder -History of myasthenia gravis, intolerant to Mestinon, maintained on prednisone -Acute on chronic renal failure, stage III, baseline 0.8 Plan: Continue on current medication regime , PPI, monitoring and symptomatic treatment. Lisinopril resumed. Continue Lasix IV push through tonight's dose, converted to oral in a.m. Oral Steroids as per neurology. Resume Lantus insulin, pre-meal insulin plus sliding scale , DC insulin drip-discussed with RN. Discharge planning in progress for tomorrow. The impression and plan of care has been dictated as directed. : I performed a history and examination of this patient, discussed the same with the dictator. I agree with the dictator's note ,documented as a scribe. Any additional findings or plans will be noted.
[2019-05-20 16:59] LABS: Glucose,Whole Blood 271 mg/dL (75-99)
[2019-05-20] MEDS ORDERED: INSULIN DETEMIR (LEVEMIR) 100 UNIT/ML SYR SQ SCH (17:00)
[2019-05-20] MEDS: LISINOPRIL 10 MG TAB PO SCH (17:56)
[2019-05-20] MEDS: INSULIN ASPART (NovoLOG) 100 UNIT/ML VIAL SQ SCH ×3 (17:57→20:30)
[2019-05-20 20:13] LABS: Glucose,Whole Blood 413 mg/dL (75-99)
[2019-05-20] MEDS ORDERED: INSULIN ASPART (NovoLOG) 100 UNIT/ML VIAL SQ ONE (20:21)
[2019-05-20] MEDS: AMITRIPTYLINE HCL 10 MG TAB PO SCH (20:31)
[2019-05-20] MEDS: ONDANSETRON 4 MG TAB PO PRN (20:53)
[2019-05-21] MEDS: NYSTATIN 100,000 UNIT/ML SUSP 500,000 UNIT/5 ML CUP PO SCH ×3 (04:20→12:40)
[2019-05-21 07:14] LABS: Glucose,Whole Blood 145 mg/dL (75-99)
[2019-05-21 07:46] LABS: Basophils # (A) 0.4 k/uL (0-0.2); Basophils % (A) 3 %; Eosinophils # (A) 0.1 k/uL (0-0.7); Eosinophils % (A) 1 %; Hypochromasia Slight; Lymphocytes # (A) 2.5 k/uL (1.0-4.8); Lymphocytes % (A) 22 %; MCH 25.2 pg (25.0-35.0); MCHC 30.1 g/dL (31.0-37.0); MCV 83.8 fL (80.0-100.0); Mean Platelet Volume 7.6; Monocytes # (A) 0.9 k/uL (0-1.0); Monocytes % (A) 8 %; Neutrophils # (A) 7.7 k/uL (1.3-7.7); Neutrophils % (A) 66 %; Platelet Count 193 k/uL (150-450); RBC 5.14 m/uL (3.80-5.40); RDW 15.9 % (11.5-15.5); WBC 11.6 k/uL (3.8-10.6)
[2019-05-21] MEDS: INSULIN ASPART (NovoLOG) 100 UNIT/ML VIAL SQ SCH ×4 (07:49→12:41)
[2019-05-21] MEDS: predniSONE 20 MG TAB PO SCH (07:53)
[2019-05-21] MEDS: ALLOPURINOL 100 MG TAB PO SCH (07:53)
[2019-05-21] MEDS: LISINOPRIL 10 MG TAB PO SCH (07:54)
[2019-05-21] MEDS: POTASSIUM CHLORIDE ER 20 MEQ TAB.ER PO SCH (07:54)
[2019-05-21] MEDS: PANTOPRAZOLE 40 MG TABLET PO SCH (07:54)
[2019-05-21] MEDS: CALCIUM CARBONATE 500 MG CHEWABLE PO SCH (07:54)
[2019-05-21] MEDS: DILTIAZEM ORAL 60 MG TAB PO SCH (07:55)
[2019-05-21] MEDS: TOPIRAMATE 25 MG TAB PO SCH (07:56)
[2019-05-21] MEDS: levETIRAcetam 250 MG TAB PO SCH (07:56)
[2019-05-21] MEDS: ASPIRIN 81 MG PO SCH (07:58)
[2019-05-21 08:04] LABS: Calcium 8.9 mg/dL (8.4-10.2); Potassium 3.7 mmol/L (3.5-5.1)
[2019-05-21 08:34] VITALS: BP 161/75; PULSE 94; TEMP 98.3
[2019-05-21] MEDS ORDERED: FUROSEMIDE 20 MG TAB PO SCH (09:00)
[2019-05-21] MEDS ORDERED: ACETAMINOPHEN TAB 325 MG TAB PO PRN (10:39)
[2019-05-21 11:22] LABS: Glucose,Whole Blood 184 mg/dL (75-99)
== END 2019-05-21 12:50 | disposition home or self-care (01) | DRG 57 ==
LOC: 4SSUR 16:47
PROVIDERS: ADMIT Family Medicine; ATTEND Family Medicine
PROC: 05HD33Z Insertion of Infusion Device into Right Cephalic Vein, Percutaneous Approach (ICD-10-PCS; principal; 2019-05-18 09:15)
DX: G70.01 Myasthenia gravis with (acute) exacerbation (principal); J44.1 Chronic obstructive pulmonary disease with (acute) exacerbation; E87.2 Acidosis; N17.9 Acute kidney failure, unspecified; Z68.42 Body mass index [BMI] 45.0-49.9, adult; E11.22 Type 2 diabetes mellitus with diabetic chronic kidney disease; E11.65 Type 2 diabetes mellitus with hyperglycemia; E66.01 Morbid (severe) obesity due to excess calories; F41.9 Anxiety disorder, unspecified; G40.909 Epilepsy, unspecified, not intractable, without status epilepticus; G43.909 Migraine, unspecified, not intractable, without status migrainosus; G47.33 Obstructive sleep apnea (adult) (pediatric); H40.9 Unspecified glaucoma; I12.9 Hypertensive chronic kidney disease with stage 1 through stage 4 chronic kidney disease, or unspecified chronic kidney disease; K21.9 Gastro-esophageal reflux disease without esophagitis; K76.9 Liver disease, unspecified; M19.90 Unspecified osteoarthritis, unspecified site; N18.3 Chronic kidney disease, stage 3 (moderate); R13.10 Dysphagia, unspecified; Z79.4 Long term (current) use of insulin; Z79.52 Long term (current) use of systemic steroids; Z79.82 Long term (current) use of aspirin; Z79.899 Other long term (current) drug therapy; Z80.8 Family history of malignant neoplasm of other organs or systems; Z82.49 Family history of ischemic heart disease and other diseases of the circulatory system; Z82.5 Family history of asthma and other chronic lower respiratory diseases; Z83.3 Family history of diabetes mellitus; Z87.891 Personal history of nicotine dependence; Z90.710 Acquired absence of both cervix and uterus; Z82.61 Family history of arthritis; Z88.1 Allergy status to other antibiotic agents; Z88.0 Allergy status to penicillin; Z88.2 Allergy status to sulfonamides; Z88.8 Allergy status to other drugs, medicaments and biological substances; T44.0X5A Adverse effect of anticholinesterase agents, initial encounter; R49.0 Dysphonia; H02.89 Other specified disorders of eyelid; M10.9 Gout, unspecified
CPT/HCPCS: 36410; 71046; 74230; 76937; 80048; 80053; 81003; 83036; 83605; 85025; 87086; 93005

== ENCOUNTER → 2019-07-21 | Outpatient (CLI) | payer BC ==
[2019-07-21 20:15] LABS: African American GFR (CKD) 57.3 (60.0-200.0); Anion Gap 9.6 mmol/L (4.00-12.00); BUN/Creat Ratio 23.33 Ratio (12.00-20.00); Calcium 9.4 mg/dL (8.7-10.3); Carbon Dioxide 29.4 mmol/L (21.6-31.8); Potassium 4.7 mmol/L (3.5-5.5)
== END | disposition home or self-care (01) ==
LOC: LABWHC1 12:39
PROVIDERS: ATTEND Psychiatry & Neurology Neurology
DX: N18.9 Chronic kidney disease, unspecified (principal)
CPT/HCPCS: 36415; 80048

== ENCOUNTER 2019-12-12 10:44 | Inpatient (IN) | payer OTHER, BC ==
[~2019-12-12 10:44] MED LIST: PROPOFOL 10 MG/ML 20 ML VIAL IV ONE; SUCCINYLCHOLINE CHLORIDE VIAL 200 MG/10 ML VIAL IV ONE
[2019-12-12] MEDS ORDERED: ACETAMINOPHEN TAB 325 MG TAB PO STA (11:15)
[2019-12-12] MEDS ORDERED: AZITHROMYCIN 500 MG in SODIUM CHLORIDE 0.9% 250 ML IVPB STA (11:16)
[2019-12-12] MEDS ORDERED: SODIUM CHLORIDE 0.9% 500 ML 500 ML IV ONE (11:28)
[2019-12-12] MEDS: SODIUM CHLORIDE 0.9% 500 ML 500 ML IV SCH ×2 (11:33→11:59)
[2019-12-12] MEDS ORDERED: ALBUTEROL HFA INHALER INHALATION STA (11:37)
[2019-12-12 11:43] LABS: Basophils # (A) 0.1 k/uL (0-0.2); Basophils % (A) 0 %; Eosinophils % (A) 0 %; HCT 37.5 % (34.0-46.0); HGB 11.6 gm/dL (11.4-16.0); Hypochromasia Moderate; Lymphocytes # (A) 1.3 k/uL (1.0-4.8); Lymphocytes % (A) 7 %; MCH 25.8 pg (25.0-35.0); MCHC 30.9 g/dL (31.0-37.0); MCV 83.5 fL (80.0-100.0); Mean Platelet Volume 8.3; Monocytes # (A) 0.7 k/uL (0-1.0); Monocytes % (A) 4 %; Neutrophils # (A) 15.5 k/uL (1.3-7.7); Neutrophils % (A) 88 %; Platelet Count 251 k/uL (150-450); Poikilocytosis Slight; RDW 15.9 % (11.5-15.5); WBC 17.7 k/uL (3.8-10.6)
[2019-12-12 11:47] LABS: Albumin 3.6 g/dL (3.5-5.0); Calcium 9.3 mg/dL (8.4-10.2); Potassium 3.4 mmol/L (3.5-5.1); Total Bilirubin 0.6 mg/dL (0.2-1.3); Total Protein 6.5 g/dL (6.3-8.2)
[2019-12-12 11:49] LABS: D-Dimer 0.59 mg/L FEU (<0.60); INR 0.9 (<1.2); Partial Thromboplastin Time 22.4 sec (22.0-30.0); Prothrombin Time 9.5 sec (9.0-12.0)
--- NOTE | 2019-12-12 12:09 | XR ---
EXAMINATION TYPE: XR chest 1V portable DATE OF EXAM: 12/12/2019 COMPARISON: 05/12/2019 HISTORY: Fever. TECHNIQUE: Single frontal view of the chest is obtained. FINDINGS: There are new multifocal alveolar opacities and diffuse interstitial opacities throughout both lungs with relative sparing of the lung apices. Costophrenic angles are not clearly defined give n patient body habitus. Cardiomediastinal silhouette is mildly enlarged. No acute osseous pathology s een. IMPRESSION: Multifocal alveolar and interstitial opacities. Considerations are for either fluid over load of congestive heart failure or multifocal pneumonia.
[2019-12-12] MEDS: SODIUM CHLORIDE 0.9% 1,000 ML IV SCH ×2 (12:20→21:36)
[2019-12-12 12:31] LABS: C Reactive Protein 207.8 mg/L (<10.0)
[2019-12-12 12:55] LABS: Appearance,Urine Cloudy (Clear); Bacteria,Urine Rare /hpf; Bilirubin,Urine Negative (Negative); Blood,Urine Negative (Negative); Color,Urine Yellow; Glucose,Urine (UA) 1+ (Negative); Granular Casts,Urine 4 /lpf (0); Ketones,Urine 1+ (Negative); Leukocyte Esterase,Urine Small (Negative); Mucus,Urine Few /hpf; Nitrite,Urine Negative (Negative); PH, Urine 5.5 (5.0-8.0); Protein,Urine 2+ (Negative); RBC,Urine 3 /hpf (0-5); Specific Gravity,Urine 1.027 (1.001-1.035); Squamous Epithelial Cell,Urine 4 /hpf (0-4); WBC,Urine 13 /hpf (0-5)
--- NOTE | 2019-12-12 12:56 | ED ---
SOB HPI - General Source: patient, EMS Mode of arrival: EMS Limitations: no limitations <Alyssa Cheema - Last Filed: 12/12/19 14:06> <Karrijuan albertoRossi Julia - Last Filed: 12/17/19 11:48> - General Chief Complaint: Shortness of Breath Stated Complaint: fever, SOB Time Seen by Provider: 12/12/19 10:48 - History of Present Illness Initial Comments: 59yo female insulin dependent DM, HTN, Myasthenia Gravis currently on pred nisone, IvIG last month for crisis presents today for chief complaint of shortness of breath fever cough. Patient states that she has had these symptoms for the past day she's been exposed to (+) Covid 19 patients at work without PPE. Patient states he is not having significant difficulty in breathing. Patient admits to feeling as though her lungs are tight with breathing. Patient denies sharp chest pain, denies leg swelling. Denies sore throat, difficulty swallowing. Patient denies nausea, vomiting, diarrhea, abdominal pain. Patient is able to speak complete sentences on arrival. Patient was hypoxic on RA per EMS, improved with oxygen. Patient BP stable on arrival. Patient denies weakness of the eyelid/diplopia, or of the UE or LE. Patient states that she does not feel like she is in a myasthenia crisis. (Alyssa Cheema) - Related Data Home Medications Medication Instructions Recorded Confirmed Aspirin 81 mg PO DAILY 09/28/15 12/14/19 Insulin Glargine [Lantus] 50 unit SQ BID 09/28/15 12/12/19 Omeprazole [PriLOSEC] 20 mg PO AC-BID 09/28/15 12/12/19 Topiramate [Topamax] 50 mg PO BID 09/28/15 12/12/19 Amitriptyline HCl [Elavil] 10 mg PO HS 10/03/18 12/12/19 Ergocalciferol (Vitamin D2) 50,000 unit PO WE 05/12/19 12/12/19 [Drisdol] INSULIN ASPART (NovoLOG) [NovoLOG 50 unit SQ ACHS 05/12/19 12/12/19 (formulary)] Potassium Chloride ER [K-Dur 20] 20 meq PO DAILY 05/12/19 12/12/19 Albuterol Inhaler [Ventolin Hfa 1 puff INHALATION RT-Q4H PRN 12/12/19 12/12/19 Inhaler] Carbidopa-Levodopa 10-100 mg 1 tab PO BID 12/12/19 12/12/19 [Sinemet 10-100] Diltiazem HCl [Cardizem] 120 mg PO TID 12/12/19 12/12/19 Furosemide [Lasix] 20 mg PO DAILY 12/12/19 12/14/19 predniSONE 15 mg PO BID 12/12/19 12/12/19 Butalb/APAP/Caff 50-325-40Mg 1 tab PO Q8H PRN 12/14/19 12/14/19 [Fioricet 50-325-40] Previous Rx's Medication Instructions Recorded Lisinopril [Zestril] 10 mg PO DAILY tab 05/21/19 Allergies Allergy/AdvReac Type Severity Reaction Status Date / Time aspartame Allergy Unknown Verified 05/12/19 17:42 [From Nutrasweet Aspartame] ciprofloxacin Allergy Unknown Verified 05/12/19 17:42 Penicillins Allergy Unknown Verified 05/12/19 17:42 Sulfa (Sulfonamide Allergy Unknown Verified 05/12/19 17:42 Antibiotics) levofloxacin [From Levaquin] AdvReac Severe Unknown Verified 05/12/19 17:42 Review of Systems ROS Other: All systems not noted in ROS Statement are negative. <Alyssa Cheema - Last Filed: 12/12/19 14:06> ROS Other: All systems not noted in ROS Statement are negative. <Rossi Jordan - Last Filed: 12/17/19 11:48> ROS Statement: Those systems with pertinent positive or pertinent negative responses have been documented in the HPI. Past Medical History Past Medical History: Asthma, COPD, Diabetes Mellitus, GERD/Reflux, Hypertension, Neurologic Disorder, Osteoarthritis (OA), Renal Disease Additional Past Medical History / Comment(s): Morbid obesity with a BMI of 42.9, gout, hypertension, diabetes mellitus, myasthenia gravis, herniated discs History of Any Multi-Drug Resistant Organisms: MRSA Date of last positivie culture/infection: 2013 MDRO Source:: eye Past Surgical History: Adenoidectomy, Section, Cholecystectomy, Heart Catheterization, Hysterectomy, Tonsillectomy Additional Past Surgical History / Comment(s): laser eye sx for glaucoma. at times gets dizzy when up, small bowel obstruction and lysis of adhesions in January 2019 Past Anesthesia/Blood Transfusion Reactions: Motion Sickness, Postoperative Nausea & Vomiting (PONV) Additional Past Anesthesia/Blood Transfusion Reaction / Comment(s): clausterphobia Past Psychological History: Anxiety Smoking Status: Former smoker Past Alcohol Use History: None Reported Past Drug Use History: None Reported - Past Family History Father Family Medical History: Cancer, COPD Additional Family Medical History / Comment(s): ashd, amputations d/t vascular dz, skin cancer, gout, Mother Family Medical History: Asthma, Chest Pain / Angina, Congestive Heart Failure (CHF), Dementia, Diabetes Mellitus, Hypertension, Osteoarthritis (OA) Additional Family Medical History / Comment(s): glaucoma,gout, neuropathy <Alyssa Cheema - Last Filed: 12/12/19 14:06> General Exam Limitations: no limitations <Alyssa Cheema - Last Filed: 12/12/19 14:06> - General Exam Comments Initial Comments: General: The patient is awake and alert, but appears in respiratory distress, with elevated RR Eye: +3 mm pupils are equal, round and reactive to light, extra-ocular movements are intact. No nystagmus. There is normal conjunctiva bilaterally. No signs of icterus. Ears, nose, mouth and throat: There are moist mucous membranes and no oral lesions. Neck: The neck is supple, there is no tenderness or JVD. Cardiovascular: There is a regular rate and rhythm. No murmur, rub or gallop is appreciated. Respiratory: Respiration rates are rapid, breath sounds reveal significant rales, there rhonchi. No wheeze, no stridor. Gastrointestinal: Soft, non-distended, non-tender abdomen without masses or organomegaly noted. There is no rebound or guarding present. Musculoskeletal: Normal ROM, no tenderness. Strength 5/5. Sensation intact. Radial pulses equal bilaterally 2+. Neurological: A&O x 3. CN II-XII intact grossly, There are no obvious motor or sensory deficits. Coordination appears grossly intact. Speech is normal. Skin: Skin is warm and dry and no rashes or lesions are noted. NO LE edema. Psychiatric: Cooperative, appropriate mood & affect, normal judgment. (Alyssa Cheema) Course Vital Signs 12/12/19 12/12/1912/11/20 10:49 11:30 12:00 Temperature 103 F H 102.4 F H Pulse Rate 141 H 140 H 140 H Respiratory 22 26 H 24 Rate Blood Pressure 109/66 113/63 105/54 O2 Sat by Pulse 99 100 98 Oximetry 12/12/19 12/12/19 12/12/19 13:13 13:20 13:30 Temperature Pulse Rate 130 H 126 H 126 H Respiratory 26 H 30 H 38 H Rate Blood Pressure 88/52 92/52 85/40 O2 Sat by Pulse 94 L 94 L 93 L Oximetry 12/12/19 12/12/19 12/12/19 13:45 14:00 14:42 Temperature 100.9 F H Pulse Rate 123 H 123 H 124 H Respiratory 36 H 40 H 18 Rate Blood Pressure 90/42 77/65 74/34 O2 Sat by Pulse 94 L 94 L 100 Oximetry 12/12/19 12/12/19 14:44 15:54 Temperature Pulse Rate 121 H 128 H Respiratory 26 H 18 Rate Blood Pressure 103/53 107/60 O2 Sat by Pulse 100 100 Oximetry Procedures - Central Line Placement Right IJ Consent Obtained: verbal consent, written consent Patient Placed on Monitor/Pulse Ox: Yes MD Prep: mask, gown, gloves Central Line Prep: Chlorhexidine scrub, sterile drapes applied Local Anesthesia Used: Lidocaine 1% Amount of Anesthesia Used (mls): 8 (cc) Ultrasound Used for Placement: Yes Central Line Lumen Inserted: triple Bloods Obtained for Lab: Yes Central Line Position: good blood return, all ports aspirated, flushed, capped, sutured in place with nylon Dressing Applied: Tegaderm Post Procedure X-Ray: tip of catheter in good position Patient Tolerated Procedure: well, no complications Complications: none <Rossi Jordan - Last Filed: 12/17/19 11:48> Medical Decision Making - Lab Data Result diagrams: 12/12/19 11:04 12/12/19 11:04 <Alyssa Cheema - Last Filed: 12/12/19 14:06> - Lab Data Result diagrams: 12/17/19 05:10 12/17/19 05:10 <Rossi Jordan - Last Filed: 12/17/19 11:48> - Medical Decision Making 59yo female presentinf for SOB, fevers, she is significantly tachycardic and appears to be working to breath with increased rate on arrival. This seemed to slightly improve however throughout the course it waxed and waned-the work of breathing and respiration rate increased. Patient BP trending downward. [employer] consulted, patient evaluated multiple occasions by myself and attending provider. Patient laboratory studies and CXR concerning for COVID 19. Patient was initial given IVF for resuscitation, this was discontinued to ensure no fluid overload after discussing management options with COVID [address] Jordan. Patient status declined and she was transferred to trauma bay to prepare for central line and intubation to be performed by Dr. Jordan. Patient verbalized understanding of procedure and is agreeable to both central line and intubation verbally. Patient to be transferred to the ICU 1.5 hours of critical care time spent with patient including multiple reevaluations, procedures, discussing case with director patient/admitting provider-- (Alyssa Cheema) The patient was evaluated by myself upon arrival the ED. The patient was placed on supplemental oxygen and lab studies were performed. Her respiratory demands were met and patient stabilized on nasal cannula. She was observed closely in the ED. She began having worsening hypotension when fluids were slowed. I discussed central line placement with the patient for which she provided written and verbal consent. US was utilized and the patient had no complications. An ABG was obtained on the patient which was discussed with the director patient. As the patient does not appear clinically to demonstrate increasing respiratory demands at this time and ABG is normal, the patient will be transport to the ICU without intubation. Dr. Burch agreed to admission of the patient and presented to the ED to evaluate her. [employer] is aware of patients critical yet stable condition. (Rossi Jordan) - Lab Data Lab Results 12/12/19 12/12/19 12/12/19 Range/Units 11:04 11:04 11:04 WBC 17.7 H (3.8-10.6) k/uL RBC 4.50 (3.80-5.40) m/uL Hgb 11.6 (11.4-16.0) gm/dL Hct 37.5 (34.0-46.0) % MCV 83.5 (80.0-100.0) fL MCH 25.8 (25.0-35.0) pg MCHC 30.9 L (31.0-37.0) g/dL RDW 15.9 H (11.5-15.5) % Plt Count 251 (150-450) k/uL Neutrophils % 88 % Lymphocytes % 7 % Monocytes % 4 % Eosinophils % 0 % Basophils % 0 % Neutrophils # 15.5 H (1.3-7.7) k/uL Lymphocytes # 1.3 (1.0-4.8) k/uL Monocytes # 0.7 (0-1.0) k/uL Eosinophils # 0.0 (0-0.7) k/uL Basophils # 0.1 (0-0.2) k/uL Hypochromasia Moderate Poikilocytosis Slight PT 9.5 (9.0-12.0) sec INR 0.9 (<1.2) APTT 22.4 (22.0-30.0) sec D-Dimer 0.59 (<0.60) mg/L FEU Sodium 138 (137-145) mmol/L Potassium 3.4 L (3.5-5.1) mmol/L Chloride 104 (98-107) mmol/L Carbon Dioxide 26 (22-30) mmol/L Anion Gap 8 mmol/L BUN 19 H (7-17) mg/dL Creatinine 1.40 H (0.52-1.04) mg/dL Est GFR (CKD-EPI)AfAm 47 (>60 ml/min/1.73 sqM) Est GFR (CKD-EPI)NonAf 41 (>60 ml/min/1.73 sqM) Glucose 234 H (74-99) mg/dL Lactic Ac Sepsis Rflx Plasma Lactic Acid Chaka (0.7-2.0) mmol/L Calcium 9.3 (8.4-10.2) mg/dL Ferritin 43.7 (10.0-291.0) ng/mL Total Bilirubin 0.6 (0.2-1.3) mg/dL AST 59 H (14-36) U/L ALT 84 H (4-34) U/L Alkaline Phosphatase 112 (38-126) U/L Lactate Dehydrogenase (313-618) U/L Troponin I (0.000-0.034) ng/mL C-Reactive Protein 207.8 H (<10.0) mg/L NT-Pro-B Natriuret Pep pg/mL Total Protein 6.5 (6.3-8.2) g/dL Albumin 3.6 (3.5-5.0) g/dL Urine Color Urine Appearance (Clear) Urine pH (5.0-8.0) Ur Specific Magnolia (1.001-1.035) Urine Protein (Negative) Urine Glucose (UA) (Negative) Urine Ketones (Negative) Urine Blood (Negative) Urine Nitrite (Negative) Urine Bilirubin (Negative) Urine Urobilinogen (<2.0) mg/dL Ur Leukocyte Esterase (Negative) Urine RBC (0-5) /hpf Urine WBC (0-5) /hpf Ur Squamous Epith Cells (0-4) /hpf Urine Bacteria (None) /hpf Granular Casts (0) /lpf Urine Mucus (None) /hpf Coronavirus (PCR) (Not Detected) Influenza Type A RNA (Not Detectd) Influenza Type B (PCR) (Not Detectd) 12/12/19 12/12/19 12/12/19 Range/Units 11:04 11:04 11:04 WBC (3.8-10.6) k/uL RBC (3.80-5.40) m/uL Hgb (11.4-16.0) gm/dL Hct (34.0-46.0) % MCV (80.0-100.0) fL MCH (25.0-35.0) pg MCHC (31.0-37.0) g/dL RDW (11.5-15.5) % Plt Count (150-450) k/uL Neutrophils % % Lymphocytes % % Monocytes % % Eosinophils % % Basophils % % Neutrophils # (1.3-7.7) k/uL Lymphocytes # (1.0-4.8) k/uL Monocytes # (0-1.0) k/uL Eosinophils # (0-0.7) k/uL Basophils # (0-0.2) k/uL Hypochromasia Poikilocytosis PT (9.0-12.0) sec INR (<1.2) APTT (22.0-30.0) sec D-Dimer (<0.60) mg/L FEU Sodium (137-145) mmol/L Potassium (3.5-5.1) mmol/L Chloride (98-107) mmol/L Carbon Dioxide (22-30) mmol/L Anion Gap mmol/L BUN (7-17) mg/dL Creatinine (0.52-1.04) mg/dL Est GFR (CKD-EPI)AfAm (>60 ml/min/1.73 sqM) Est GFR (CKD-EPI)NonAf (>60 ml/min/1.73 sqM) Glucose (74-99) mg/dL Lactic Ac Sepsis Rflx Plasma Lactic Acid Chaka 3.2 H* (0.7-2.0) mmol/L Calcium (8.4-10.2) mg/dL Ferritin (10.0-291.0) ng/mL Total Bilirubin (0.2-1.3) mg/dL AST (14-36) U/L ALT (4-34) U/L Alkaline Phosphatase (38-126) U/L Lactate Dehydrogenase (313-618) U/L Troponin I (0.000-0.034) ng/mL C-Reactive Protein (<10.0) mg/L NT-Pro-B Natriuret Pep pg/mL Total Protein (6.3-8.2) g/dL Albumin (3.5-5.0) g/dL Urine Color Urine Appearance (Clear) Urine pH (5.0-8.0) Ur Specific Magn[place] (1.001-1.035) Urine Protein (Negative) Urine Glucose (UA) (Negative) Urine Ketones (Negative) Urine Blood (Negative) Urine Nitrite (Negative) Urine Bilirubin (Negative) Urine Urobilinogen (<2.0) mg/dL Ur Leukocyte Esterase (Negative) Urine RBC (0-5) /hpf Urine WBC (0-5) /hpf Ur Squamous Epith Cells (0-4) /hpf Urine Bacteria (None) /hpf Granular Casts (0) /lpf Urine Mucus (None) /hpf Coronavirus (PCR) Detected H (Not Detected) Influenza Type A RNA Not Detected (Not Detectd) Influenza Type B (PCR) Not Detected (Not Detectd) 12/12/19 12/12/19 12/12/19 Range/Units 11:04 11:04 11:04 WBC (3.8-10.6) k/uL RBC (3.80-5.40) m/uL Hgb (11.4-16.0) gm/dL Hct (34.0-46.0) % MCV (80.0-100.0) fL MCH (25.0-35.0) pg MCHC (31.0-37.0) g/dL RDW (11.5-15.5) % Plt Count (150-450) k/uL Neutrophils % % Lymphocytes % % Monocytes % % Eosinophils % % Basophils % % Neutrophils # (1.3-7.7) k/uL Lymphocytes # (1.0-4.8) k/uL Monocytes # (0-1.0) k/uL Eosinophils # (0-0.7) k/uL Basophils # (0-0.2) k/uL Hypochromasia Poikilocytosis PT (9.0-12.0) sec INR (<1.2) APTT (22.0-30.0) sec D-Dimer (<0.60) mg/L FEU Sodium (137-145) mmol/L Potassium (3.5-5.1) mmol/L Chloride (98-107) mmol/L Carbon Dioxide (22-30) mmol/L Anion Gap mmol/L BUN (7-17) mg/dL Creatinine (0.52-1.04) mg/dL Est GFR (CKD-EPI)AfAm (>60 ml/min/1.73 sqM) Est GFR (CKD-EPI)NonAf (>60 ml/min/1.73 sqM) Glucose (74-99) mg/dL Lactic Ac Sepsis Rflx Plasma Lactic Acid Chaka (0.7-2.0) mmol/L Calcium (8.4-10.2) mg/dL Ferritin (10.0-291.0) ng/mL Total Bilirubin (0.2-1.3) mg/dL AST (14-36) U/L ALT (4-34) U/L Alkaline Phosphatase (38-126) U/L Lactate Dehydrogenase 1210 H (313-618) U/L Troponin I 0.064 H* (0.000-0.034) ng/mL C-Reactive Protein (<10.0) mg/L NT-Pro-B Natriuret Pep 370 pg/mL Total Protein (6.3-8.2) g/dL Albumin (3.5-5.0) g/dL Urine Color Urine Appearance (Clear) Urine pH (5.0-8.0) Ur Specific [place] (1.001-1.035) Urine Protein (Negative) Urine Glucose (UA) (Negative) Urine Ketones (Negative) Urine Blood (Negative) Urine Nitrite (Negative) Urine Bilirubin (Negative) Urine Urobilinogen (<2.0) mg/dL Ur Leukocyte Esterase (Negative) Urine RBC (0-5) /hpf Urine WBC (0-5) /hpf Ur Squamous Epith Cells (0-4) /hpf Urine Bacteria (None) /hpf Granular Casts (0) /lpf Urine Mucus (None) /hpf Coronavirus (PCR) (Not Detected) Influenza Type A RNA (Not Detectd) Influenza Type B (PCR) (Not Detectd) 12/12/19 12/12/19 Range/Units 11:48 12:40 WBC (3.8-10.6) k/uL RBC (3.80-5.40) m/uL Hgb (11.4-16.0) gm/dL Hct (34.0-46.0) % MCV (80.0-100.0) fL MCH (25.0-35.0) pg MCHC (31.0-37.0) g/dL RDW (11.5-15.5) % Plt Count (150-450) k/uL Neutrophils % % Lymphocytes % % Monocytes % % Eosinophils % % Basophils % % Neutrophils # (1.3-7.7) k/uL Lymphocytes # (1.0-4.8) k/uL Monocytes # (0-1.0) k/uL Eosinophils # (0-0.7) k/uL Basophils # (0-0.2) k/uL Hypochromasia Poikilocytosis PT (9.0-12.0) sec INR (<1.2) APTT (22.0-30.0) sec D-Dimer (<0.60) mg/L FEU Sodium (137-145) mmol/L Potassium (3.5-5.1) mmol/L Chloride (98-107) mmol/L Carbon Dioxide (22-30) mmol/L Anion Gap mmol/L BUN (7-17) mg/dL Creatinine (0.52-1.04) mg/dL Est GFR (CKD-EPI)AfAm (>60 ml/min/1.73 sqM) Est GFR (CKD-EPI)NonAf (>60 ml/min/1.73 sqM) Glucose (74-99) mg/dL Lactic Ac Sepsis Rflx Y Plasma Lactic Acid Chaka (0.7-2.0) mmol/L Calcium (8.4-10.2) mg/dL Ferritin (10.0-291.0) ng/mL Total Bilirubin (0.2-1.3) mg/dL AST (14-36) U/L ALT (4-34) U/L Alkaline Phosphatase (38-126) U/L Lactate Dehydrogenase (313-618) U/L Troponin I (0.000-0.034) ng/mL C-Reactive Protein (<10.0) mg/L NT-Pro-B Natriuret Pep pg/mL Total Protein (6.3-8.2) g/dL Albumin (3.5-5.0) g/dL Urine Color Yellow Urine Appearance Cloudy H (Clear) Urine pH 5.5 (5.0-8.0) Ur Specific [place] 1.027 (1.001-1.035) Urine Protein 2+ H (Negative) Urine Glucose (UA) 1+ H (Negative) Urine Ketones 1+ H (Negative) Urine Blood Negative (Negative) Urine Nitrite Negative (Negative) Urine Bilirubin Negative (Negative) Urine Urobilinogen 2.0 (<2.0) mg/dL Ur Leukocyte Esterase Small H (Negative) Urine RBC 3 (0-5) /hpf Urine WBC 13 H (0-5) /hpf Ur Squamous Epith Cells 4 (0-4) /hpf Urine Bacteria Rare H (None) /hpf Granular Casts 4 (0) /lpf Urine Mucus Few H (None) /hpf Coronavirus (PCR) (Not Detected) Influenza Type A RNA (Not Detectd) Influenza Type B (PCR) (Not Detectd) Disposition Is patient prescribed a controlled substance at d/c from ED?: No Time of Disposition: 14:01 Decision to Admit Reason: Admit from EC Decision Date: 12/12/19 Decision Time: 14:01 <Alyssa Cheema - Last Filed: 12/12/19 14:06> <Rossi Jordan - Last Filed: 12/17/19 11:48> Clinical Impression: Suspected COVID-19 virus infection, Fever, Sepsis, Rapid respiration, Hypoxia, Elevated troponin, Elevated LDH Disposition: ADMITTED IP TO THIS HOSP Condition: Poor
[2019-12-12] MEDS ORDERED: NALOXONE 0.4 MG/ML 1 ML VIAL IV PRN (14:01)
[2019-12-12 14:38] LABS: ABG Base Excess -2.4 mmol/L; ABG HCO3 23 mmol/L (21-25); ABG Oxygen Saturation 99.6 % (94-97); ABG PCO2 43 mmHg (35-45); ABG PH 7.35 (7.35-7.45); ABG PO2 143 mmHg (83-108); ABG TCO2 25 mmol/L (19-24); Allen Test Performed? Yes
[2019-12-12] MEDS: NOREPINEPHRINE 4 MG in SODIUM CHLORIDE 0.9% 250 ML IV SCH ×2 (14:40→18:15)
[2019-12-12] MEDS ORDERED: TOCILIZUMAB 400 MG in SODIUM CHLORIDE 0.9% 80 ML IV ONE ×2 (14:49→15:57)
--- NOTE | 2019-12-12 16:26 | XR ---
EXAMINATION TYPE: XR chest 1V portable DATE OF EXAM: 12/12/2019 HISTORY: Shortness of breath. Central venous line Placement. COMPARISON: December 12, 2019 TECHNIQUE: Single view of the chest is submitted. FINDINGS: Progressive infiltrates are noted about the right upper lobe, right lower lobe, left perihilar and le ft lower lobe regions. Right IJ central venous line noted with its distal tip overlying the SVC. No evidence for sizable pne umothorax. The heart is stable. Hilar and mediastinal structures are within normal limits. Degenerative changes are seen of the dorsal spine. IMPRESSION: 1. Progressive pneumonia. 2. Central venous line as discussed.
[2019-12-12 16:44] LABS: Glucose,Whole Blood 218 mg/dL (75-99)
[2019-12-12] MEDS: predniSONE 20 MG TAB PO SCH (18:04)
[2019-12-12] MEDS: INSULIN ASPART (NovoLOG) 100 UNIT/ML VIAL SQ SCH ×2 (18:04→23:50)
[2019-12-12] MEDS: ACETAMINOPHEN TAB 325 MG TAB PO PRN (18:49)
[2019-12-12 19:01] LABS: Ferritin 43.7 ng/mL (10.0-291.0)
--- NOTE | 2019-12-12 20:22 | P.CNNES ---
History of Present Illness Consult date: 12/12/19 Requesting physician: Alyssa Cheema Reason for Consult: Myasthenia gravis, suspect Covid History of Present Illness: Patient is a 59-year-old female with history of myasthenia gravis, admitted with fever, cough, shortness of breath. The symptoms have been present for the past few days. She has been exposed to Covid patients at work without PPE. Patient's vital signs on arrival was temperature 103, pulse rate 141, respiration 22. Blood pressure 109/66. Patient's chest x-ray showed multifocal alveolar interstitial opacities. Considerations for either fluid overload of congestive heart failure or multifocal pneumonia. EKG shows sinus tachycardia. Patient's hemoglobin A1c 10.7 on 05/12/2019. AST is 59, ALT 84. CPK normal. Electrolytes are normal, BUN 19, creatinine 1.40. WBC 17.7 hemoglobin 11.6, pl atelets 251. PT/PTT normal. Influenza screen negative. Patient's myasthenia gravis panel from 07/08/2017 showed striated antibodies positive 1:40, acetylcholine receptor binding antibodies 41.40 Patient has history of myasthenia gravis diagnosed 3 years ago. Patient's last exacerbation of myasthenia gravis was about a month ago for which she received IVIG 20 g per day for 5 consecutive days. She follows up with a neurologist at [facility], the name of which she does not remember. Prior to these, her previous exacerbations were in September 2018, December 2018. She was hospitalized for an exacerbation was on 05/12/2019 when she was seen by Dr. Mcneal. Patient was treated with IV methylprednisolone 125 mg every 6 hours. When she has MG exacerbation, she gets double vision, ptosis, blurred vision, difficulty breathing and arm and leg weakness. Patient has previously tried Mestinon, but caused lots of jerking and she developed persistent vomiting with Imuran. She had recurrent infection while she was on CellCept. Patient currently on prednisone 15 mg twice a day at home. Patient informed me that she has been diagnosed with possible demyelinating disease in the brain. She has recently undergone lumbar puncture by her neurologist, but no definitive disease/condition have been diagnosed. Patient has history of diabetes, hypertension, obesity, gout and renal disease. 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 Review of Systems Patient at present denies any symptoms of myasthenia gravis. She is always generalized weak from myasthenia, but his baseline. Denies any new worsening. She is complaining of cough, shortness of breath. Denies diplopia, nausea vomiting diarrhea. ROS unobtainable: due to endotracheal tube Past Medical History Past Medical History: Asthma, COPD, Diabetes Mellitus, GERD/Reflux, Hypertension, Neurologic Disorder, Osteoarthritis (OA), Renal Disease Additional Past Medical History / Comment(s): Morbid obesity with a BMI of 42.9, gout, hypertension, diabetes mellitus, myasthenia gravis, herniated discs History of Any Multi-Drug Resistant Organisms: MRSA Date of last positivie culture/infection: 2013 MDRO Source:: eye Past Surgical History: Adenoidectomy, Section, Cholecystectomy, Heart Catheterization, Hysterectomy, Tonsillectomy Additional Past Surgical History / Comment(s): laser eye sx for glaucoma. at times gets dizzy when up, small bowel obstruction and lysis of adhesions in January 2019 Past Anesthesia/Blood Transfusion Reactions: Motion Sickness, Postoperative Nausea & Vomiting (PONV) Additional Past Anesthesia/Blood Transfusion Reaction / Comment(s): clausterphobia Past Psychological History: Anxiety Smoking Status: Former smoker Past Alcohol Use History: None Reported Past Drug Use History: None Reported - Past Family History Father Family Medical History: Cancer, COPD Additional Family Medical History / Comment(s): ashd, amputations d/t vascular dz, skin cancer, gout, Mother Family Medical History: Asthma, Chest Pain / Angina, Congestive Heart Failure (CHF), Dementia, Diabetes Mellitus, Hypertension, Osteoarthritis (OA) Additional Family Medical History / Comment(s): glaucoma,gout, neuropathy Medications and Allergies Home Medications Medication Instructions Recorded Confirmed Type Allopurinol [Zyloprim] 50 mg PO DAILY 09/28/15 05/12/19 History Aspirin 81 mg PO DAILY 09/28/15 05/12/19 History Insulin Glargine [Lantus] 50 unit SQ BID 09/28/15 12/12/19 History Omeprazole [PriLOSEC] 20 mg PO AC-BID 09/28/15 12/12/19 History Topiramate [Topamax] 50 mg PO BID 09/28/15 12/12/19 History Amitriptyline HCl [Elavil] 10 mg PO HS 10/03/18 12/12/19 History Butalb/Acetaminophen/Caffeine 1 tab PO Q8HR PRN 10/03/18 12/12/19 History [Fioricet 50-300-40 mg Capsule] Ergocalciferol (Vitamin D2) 50,000 unit PO WE 05/12/19 12/12/19 History [Drisdol] INSULIN ASPART (NovoLOG) [NovoLOG 50 unit SQ ACHS 05/12/19 12/12/19 History (formulary)] Potassium Chloride ER [K-Dur 20] 20 meq PO DAILY 05/12/19 12/12/19 History levETIRAcetam [Keppra] 250 mg PO Q12HR 05/12/19 05/12/19 History Lisinopril [Zestril] 10 mg PO DAILY tab 05/21/19 12/12/19 Rx Albuterol Inhaler [Ventolin Hfa 1 puff INHALATION RT-Q4H PRN 12/12/19 12/12/19 History Inhaler] Carbidopa-Levodopa 10-100 mg 1 tab PO BID 12/12/19 12/12/19 History [Sinemet 10-100] Diltiazem HCl [Cardizem] 120 mg PO TID 12/12/19 12/12/19 History Furosemide [Lasix] 20 mg PO DAILY 12/12/19 History predniSONE 15 mg PO BID 12/12/19 12/12/19 History Allergies Allergy/AdvReac Type Severity Reaction Status Date / Time aspartame Allergy Unknown Verified 05/12/19 17:42 [From Nutrasweet Aspartame] ciprofloxacin Allergy Unknown Verified 05/12/19 17:42 Penicillins Allergy Unknown Verified 05/12/19 17:42 Sulfa (Sulfonamide Allergy Unknown Verified 05/12/19 17:42 Antibiotics) levofloxacin [From Levaquin] AdvReac Severe Unknown Verified 05/12/19 17:42 Physical Examination - Vital Signs Vital Signs: Vital Signs Temp Pulse Resp BP Pulse Ox 12/12/19 19:00 130 H 39 H 120/66 99 12/12/19 18:30 130 H 28 H 105/61 100 12/12/19 18:00 130 H 32 H 110/84 96 12/12/19 17:30 131 H 27 H 97/56 99 12/12/19 17:00 101.5 F H 131 H 32 H 96/62 99 12/12/19 16:30 128 H 34 H 12/12/19 16:29 127 H 22 111/56 98 12/12/19 15:54 128 H 18 107/60 100 12/12/19 14:44 121 H 26 H 103/53 100 12/12/19 14:42 124 H 18 74/34 100 12/12/19 14:00 100.9 F H 123 H 40 H 77/65 94 L 12/12/19 13:45 123 H 36 H 90/42 94 L 12/12/19 13:30 126 H 38 H 85/40 93 L 12/12/19 13:20 126 H 30 H 92/52 94 L 12/12/19 13:13 130 H 26 H 88/52 94 L 12/12/19 12:00 102.4 F H 140 H 24 105/54 98 12/12/19 11:30 140 H 26 H 113/63 100 12/12/19 10:49 103 F H 141 H 22 109/66 99 Intake and Output 12/12/19 12/12/19 12/12/19 06:59 14:59 22:59 Intake Total 355.907 Output Total 100 130 Balance -100 225.907 Intake: IV 225 Sodium Chloride 0.9% 1, 225 000 ml @ 75 mls/hr IV . [id number] POL[facility] Rx#:[id number] Intake, IV Titration 30.907 Amount Norepinephrine 4 mg In 30.907 Sodium Chloride 0.9% 250 ml @ 0.05 MCG/KG/MIN 15. 986 mls/hr IV .[id number] POLINA Rx#:[id number] Oral 100 Output: Urine 100 130 Other: Voiding Method Indwelling Catheter # Voids 1 Weight 83.915 kg On examination patient is a middle aged female, who is laying in the bed. She is in moderate respiratory distress. Her speech and language functions are normal. Patient denies any ptosis, diplopia. Extraocular muscles intact. She can move her arms and legs very normally. No ataxia. Results - Laboratory Findings CBC and BMP: 12/12/19 11:04 12/12/19 11:04 Abnormal Lab Findings: Abnormal Labs 12/12/19 12/12/19 12/12/19 11:04 11:04 11:04 WBC 17.7 H MCHC 30.9 L RDW 15.9 H Neutrophils # 15.5 H ABG pO2 ABG Total CO2 ABG O2 Saturation Potassium 3.4 L BUN 19 H Creatinine 1.40 H Glucose 234 H POC Glucose (mg/dL) Plasma Lactic Acid Chaka 3.2 H* AST 59 H ALT 84 H Lactate Dehydrogenase Troponin I C-Reactive Protein 207.8 H Urine Appearance Urine Protein Urine Glucose (UA) Urine Ketones Ur Leukocyte Esterase Urine WBC Urine Bacteria Urine Mucus 12/12/19 12/12/19 12/12/19 11:04 11:04 12:40 WBC MCHC RDW Neutrophils # ABG pO2 ABG Total CO2 ABG O2 Saturation Potassium BUN Creatinine Glucose POC Glucose (mg/dL) Plasma Lactic Acid Chaka AST ALT Lactate Dehydrogenase 1210 H Troponin I 0.064 H* C-Reactive Protein Urine Appearance Cloudy H Urine Protein 2+ H Urine Glucose (UA) 1+ H Urine Ketones 1+ H Ur Leukocyte Esterase Small H Urine WBC 13 H Urine Bacteria Rare H Urine Mucus Few H 12/12/19 12/12/19 14:35 16:33 WBC MCHC RDW Neutrophils # ABG pO2 143 H ABG Total CO2 25 H ABG O2 Saturation 99.6 H Potassium BUN Creatinine Glucose POC Glucose (mg/dL) 218 H Plasma Lactic Acid Chaka AST ALT Lactate Dehydrogenase Troponin I C-Reactive Protein Urine Appearance Urine Protein Urine Glucose (UA) Urine Ketones Ur Leukocyte Esterase Urine WBC Urine Bacteria Urine Mucus Assessment and Plan Assessment: * Myasthenia gravis, currently in remission. Patient is status post treatment with IVIG about a month ago for myasthenia gravis exacerbation. * Acute multifocal pneumonia, with high fever, Covid suspect * Diabetes poorly controlled * Obesity Plan: * Patient's myasthenia gravis is in remission at this time. * Acute issue is bilateral pneumonia and possible Covid infection. Patient has been started on hydroxychloroquine at recommended does for possible Covid. This medication has to be given with caution to patient's with myasthenia gravis, but at this time, benefits outweigh the risks. * If she develops any myasthenia gravis exacerbation, we will consider treatment with IVIG. * Patient is also receiving high-dose steroids for Covid, which may help with her myasthenia as well. * Please call neurology, if she develops any symptoms of myasthenia gravis.
[2019-12-12] MEDS: HYDROXYCHLOROQUINE SULFATE 200 MG TAB PO SCH (21:36)
[2019-12-12] MEDS: DILTIAZEM ORAL 60 MG TAB PO SCH (21:45)
--- NOTE | 2019-12-12 22:28 | HP ---
HISTORY AND PHYSICAL CHIEF COMPLAINT: This is a 59-year-old with history of myasthenia gravis admitted with fever, cough, and shortness of breath. 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 She has a history of myasthenia gravis, insulin-dependent diabetes mellitus, multiple sclerosis. She had a temperature of 103, respiratory rate 22-30, heart rate in the 140s, blood pressure is 98 to 109 over 66. She has been placed on levophed. She has multifocal alveolar interstitial opacities on chest x-ray. She has pneumonia with fever, possibly some fluid overload, sinus tachycardia with sepsis, COVID-19 infection most likely. White count 17.7. 251. She was given a dose of Plaquenil in the ER and azithromycin. She has myasthenia gravis diagnosed three years ago. She has COPD, diastolic heart failure. She takes prednisone 50 mg b.i.d. at home. She is positive for demyelinating disease of the brain. PAST MEDICAL HISTORY: Diabetes, hypertension, obesity, renal disease. REVIEW OF SYSTEMS: A 14-point review of systems negative except for severe respiratory distress as mentioned above, history of asthma, COPD, type 2 diabetes mellitus, myasthenia gravis, multiple sclerosis, osteoarthritis, renal disease, herniated disc disease, insulin- dependent diabetes mellitus. PAST SURGICAL HISTORY: Adenoidectomy, , cholecystectomy, heart catheterization, hysterectomy, tonsillectomy, glaucoma, small bowel obstruction, lysis of adhesions. MEDICATIONS: See list. PHYSICAL EXAMINATION: VITAL SIGNS: T-max 103.4, pulse is 130s to 140s, respiratory rate 25 to 35, blood pressure is 90s to 130s over 60s, O2 saturation is 99% to 100% on a nonrebreather. She is in acute respiratory distress. She is on a nonrebreather. LUNGS: Show scattered rhonchi and wheeze. CARDIOVASCULAR: S1, S2. Tachycardia. NEUROLOGIC: Alert and oriented x3. PSYCH: Fair mood and affect. OPHTHALMOLOGIC: Pupils equal, round, and reactive to light and accommodation. BUN is 19, creatinine 1.4. EKG does not show QRS prolongation. ABG shows CO2 is 25, pO2 143, O2 saturation 99. ASSESSMENT: 1. Myasthenia gravis, treats with IVIg once a month. 2. History of multiple sclerosis. 3. Multifocal pneumonia, COVID suspect with sepsis with pneumonia. 4. Insulin-dependent diabetes mellitus, poorly controlled. 5. Acute hypoxic respiratory distress. 6. Sepsis. PLAN: Hydroxychloroquine is being given for COVID. Pause her treatment with IVIg if necessary. Steroids are being given, which will help with myasthenia as well. Continue with azithromycin if she is not allergic and if patient decompensates respiratory-de anda, she may need a transfer to [facility] from the hospital where the drug is available without restrictions like [facility] instead of when patient has inflammatory response going on a vent, as this has great response in the COVID patients we have in the past week so it is not available at this hospital and if patient decompensates patient may need to be transferred over to [facility]. Await further consults. MIKE / PATRICEN: [id number] /
[2019-12-12 23:45] LABS: Glucose,Whole Blood 342 mg/dL (75-99)
[2019-12-13] MEDS: ACETAMINOPHEN TAB 325 MG TAB PO PRN ×2 (00:03→05:54)
--- NOTE | 2019-12-13 00:05 | P.CONS ---
History of Present Illness - Reason for Consult Consult date: 12/12/19 covid 19 infection Requesting physician: Thomas Ricketts - Chief Complaint fever and shortness of breath x 1 day - History of Present Illness Patient is a 59-year female with a past medical history vancomycin x- ray was hypertension and diabetes in this patient presenting to the ER with chief complaints of increasing shortness of breath fever and cough patient still has getting worse for the loss since yesterday and apparently the patient has been exposed to COVID-19 patient at work patient main symptom remains to be increasing shortness of breath that has been progressively getting worse along with a cough which has been moderate intensity dry nature not able to bring up any sputum no chest pain no nausea no vomiting no abdominal pain or any diarrhea on arrival to the ER patient did have a fever of 103 F she was tachycardic slightly hypoxic he did have elevated white count no need for pain in the with elevated LDH of 1210 patient had influenza testing which was negative COVID-19 PCR has been sent which is currently pending patient did have a chest x-ray multifocal PO and interstitial opacities patient has been admitted to ICU because of her compromised respiratory status started on Plaquenil Rocephin and Zithromax infectious was consulted for further recommendation regarding antibiotic therapy. Review of Systems Positive point has been mentioned in HPI rest of the systems are negative Past Medical History Past Medical History: Asthma, COPD, Diabetes Mellitus, GERD/Reflux, Hypertension, Neurologic Disorder, Osteoarthritis (OA), Renal Disease Additional Past Medical History / Comment(s): Morbid obesity with a BMI of 42.9, gout, hypertension, diabetes mellitus, myasthenia gravis, herniated discs History of Any Multi-Drug Resistant Organisms: MRSA Year Discovered:: 2013 MDRO Source:: eye Past Surgical History: Adenoidectomy, Section, Cholecystectomy, Heart Catheterization, Hysterectomy, Tonsillectomy Additional Past Surgical History / Comment(s): laser eye sx for glaucoma. at times gets dizzy when up, small bowel obstruction and lysis of adhesions in January 2019 Past Anesthesia/Blood Transfusion Reactions: Motion Sickness, Postoperative Nausea & Vomiting (PONV) Additional Past Anesthesia/Blood Transfusion Reaction / Comm: clausterphobia Past Psychological History: Anxiety Smoking Status: Former smoker Past Alcohol Use History: None Reported Past Drug Use History: None Reported - Past Family History Father Family Medical History: Cancer, COPD Additional Family Medical History / Comment(s): ashd, amputations d/t vascular dz, skin cancer, gout, Mother Family Medical History: Asthma, Chest Pain / Angina, Congestive Heart Failure (CHF), Dementia, Diabetes Mellitus, Hypertension, Osteoarthritis (OA) Additional Family Medical History / Comment(s): glaucoma,gout, neuropathy Medications and Allergies Home Medications Medication Instructions Recorded Confirmed Type Allopurinol [Zyloprim] 50 mg PO DAILY 09/28/15 05/12/19 History Aspirin 81 mg PO DAILY 09/28/15 05/12/19 History Insulin Glargine [Lantus] 50 unit SQ BID 09/28/15 12/12/19 History Omeprazole [PriLOSEC] 20 mg PO AC-BID 09/28/15 12/12/19 History Topiramate [Topamax] 50 mg PO BID 09/28/15 12/12/19 History Amitriptyline HCl [Elavil] 10 mg PO HS 10/03/18 12/12/19 History Butalb/Acetaminophen/Caffeine 1 tab PO Q8HR PRN 10/03/18 12/12/19 History [Fioricet 50-300-40 mg Capsule] Ergocalciferol (Vitamin D2) 50,000 unit PO WE 05/12/19 12/12/19 History [Drisdol] INSULIN ASPART (NovoLOG) [NovoLOG 50 unit SQ ACHS 05/12/19 12/12/19 History (formulary)] Potassium Chloride ER [K-Dur 20] 20 meq PO DAILY 05/12/19 12/12/19 History levETIRAcetam [Keppra] 250 mg PO Q12HR 05/12/19 05/12/19 History Lisinopril [Zestril] 10 mg PO DAILY tab 05/21/19 12/12/19 Rx Albuterol Inhaler [Ventolin Hfa 1 puff INHALATION RT-Q4H PRN 12/12/19 12/12/19 History Inhaler] Carbidopa-Levodopa 10-100 mg 1 tab PO BID 12/12/19 12/12/19 History [Sinemet 10-100] Diltiazem HCl [Cardizem] 120 mg PO TID 12/12/19 12/12/19 History Furosemide [Lasix] 20 mg PO DAILY 12/12/19 History predniSONE 15 mg PO BID 12/12/19 12/12/19 History Allergies Allergy/AdvReac Type Severity Reaction Status Date / Time aspartame Allergy Unknown Verified 05/12/19 17:42 [From Nutrasweet Aspartame] ciprofloxacin Allergy Unknown Verified 05/12/19 17:42 Penicillins Allergy Unknown Verified 05/12/19 17:42 Sulfa (Sulfonamide Allergy Unknown Verified 05/12/19 17:42 Antibiotics) levofloxacin [From Levaquin] AdvReac Severe Unknown Verified 05/12/19 17:42 Physical Exam Vitals: Vital Signs Temp Pulse Resp BP Pulse Ox 12/12/19 22:00 113 H 32 H 119/62 96 12/12/19 21:30 115 H 27 H 113/87 83 L 12/12/19 21:00 120 H 32 H 99/55 90 L 12/12/19 20:30 120 H 20 129/57 96 12/12/19 20:00 98.9 F 125 H 32 H 125/73 94 L 12/12/19 19:30 128 H 35 H 129/66 97 12/12/19 19:00 130 H 39 H 120/66 99 12/12/19 18:30 130 H 28 H 105/61 100 12/12/19 18:00 130 H 32 H 110/84 96 12/12/19 17:30 131 H 27 H 97/56 99 12/12/19 17:00 101.5 F H 131 H 32 H 96/62 99 12/12/19 16:30 128 H 34 H 12/12/19 16:29 127 H 22 111/56 98 12/12/19 15:54 128 H 18 107/60 100 12/12/19 14:44 121 H 26 H 103/53 100 12/12/19 14:42 124 H 18 74/34 100 12/12/19 14:00 100.9 F H 123 H 40 H 77/65 94 L 12/12/19 13:45 123 H 36 H 90/42 94 L 12/12/19 13:30 126 H 38 H 85/40 93 L 12/12/19 13:20 126 H 30 H 92/52 94 L 12/12/19 13:13 130 H 26 H 88/52 94 L 12/12/19 12:00 102.4 F H 140 H 24 105/54 98 12/12/19 11:30 140 H 26 H 113/63 100 12/12/19 10:49 103 F H 141 H 22 109/66 99 Intake and Output 12/12/19 12/12/19 12/12/19 06:59 14:59 22:59 Intake Total 595.454 Output Total 100 305 Balance -100 290.454 Intake: IV 450 Sodium Chloride 0.9% 1, 450 000 ml @ 75 mls/hr IV . [id number] [facility] Rx#:[id number] Intake, IV Titration 45.454 Amount Norepinephrine 4 mg In 45.454 Sodium Chloride 0.9% 250 ml @ 0.05 MCG/KG/MIN 15. 986 mls/hr IV .[id number] [facility] Rx#:[id number] Oral 100 Output: Urine 100 305 Other: Voiding Method Indwelling Catheter # Voids 1 Weight 83.915 kg GENERAL DESCRIPTION: Middle-aged female lying in bed, no distress. No tachypnea or accessory muscle of respiration use. HEENT: Shows Pallor , no scleral icterus. Oral mucous membrane is dry. NECK: Trachea central, no thyromegaly. LUNGS: Unlabored breathing. Decreased intensity breath sound. No wheeze or crackle. HEART: S1, S2, regular rate and rhythm. ABDOMEN: Soft, no tenderness , guarding or rigidity EXTREMITIES: No edema of feet. SKIN: No rash, no masses palpable. NEUROLOGICAL: The patient is awake, alert, oriented x3, mood and affect normal. Results CBC & Chem 7: 12/12/19 11:04 12/12/19 11:04 Labs: Abnormal Lab Results - Last 24 Hours (Table) 12/12/19 12/12/19 12/12/19 Range/Units 11:04 11:04 11:04 WBC 17.7 H (3.8-10.6) k/uL MCHC 30.9 L (31.0-37.0) g/dL RDW 15.9 H (11.5-15.5) % Neutrophils # 15.5 H (1.3-7.7) k/uL ABG pO2 (83-108) mmHg ABG Total CO2 (19-24) mmol/L ABG O2 Saturation (94-97) % Potassium 3.4 L (3.5-5.1) mmol/L BUN 19 H (7-17) mg/dL Creatinine 1.40 H (0.52-1.04) mg/dL Glucose 234 H (74-99) mg/dL POC Glucose (mg/dL) (75-99) mg/dL Plasma Lactic Acid Chaka 3.2 H* (0.7-2.0) mmol/L AST 59 H (14-36) U/L ALT 84 H (4-34) U/L Lactate Dehydrogenase (313-618) U/L Troponin I (0.000-0.034) ng/mL C-Reactive Protein 207.8 H (<10.0) mg/L Urine Appearance (Clear) Urine Protein (Negative) Urine Glucose (UA) (Negative) Urine Ketones (Negative) Ur Leukocyte Esterase (Negative) Urine WBC (0-5) /hpf Urine Bacteria (None) /hpf Urine Mucus (None) /hpf 12/12/19 12/12/19 12/12/19 Range/Units 11:04 11:04 12:40 WBC (3.8-10.6) k/uL MCHC (31.0-37.0) g/dL RDW (11.5-15.5) % Neutrophils # (1.3-7.7) k/uL ABG pO2 (83-108) mmHg ABG Total CO2 (19-24) mmol/L ABG O2 Saturation (94-97) % Potassium (3.5-5.1) mmol/L BUN (7-17) mg/dL Creatinine (0.52-1.04) mg/dL Glucose (74-99) mg/dL POC Glucose (mg/dL) (75-99) mg/dL Plasma Lactic Acid Chaka (0.7-2.0) mmol/L AST (14-36) U/L ALT (4-34) U/L Lactate Dehydrogenase 1210 H (313-618) U/L Troponin I 0.064 H* (0.000-0.034) ng/mL C-Reactive Protein (<10.0) mg/L Urine Appearance Cloudy H (Clear) Urine Protein 2+ H (Negative) Urine Glucose (UA) 1+ H (Negative) Urine Ketones 1+ H (Negative) Ur Leukocyte Esterase Small H (Negative) Urine WBC 13 H (0-5) /hpf Urine Bacteria Rare H (None) /hpf Urine Mucus Few H (None) /hpf 12/12/19 12/12/19 Range/Units 14:35 16:33 WBC (3.8-10.6) k/uL MCHC (31.0-37.0) g/dL RDW (11.5-15.5) % Neutrophils # (1.3-7.7) k/uL ABG pO2 143 H (83-108) mmHg ABG Total CO2 25 H (19-24) mmol/L ABG O2 Saturation 99.6 H (94-97) % Potassium (3.5-5.1) mmol/L BUN (7-17) mg/dL Creatinine (0.52-1.04) mg/dL Glucose (74-99) mg/dL POC Glucose (mg/dL) 218 H (75-99) mg/dL Plasma Lactic Acid Chaka (0.7-2.0) mmol/L AST (14-36) U/L ALT (4-34) U/L Lactate Dehydrogenase (313-618) U/L Troponin I (0.000-0.034) ng/mL C-Reactive Protein (<10.0) mg/L Urine Appearance (Clear) Urine Protein (Negative) Urine Glucose (UA) (Negative) Urine Ketones (Negative) Ur Leukocyte Esterase (Negative) Urine WBC (0-5) /hpf Urine Bacteria (None) /hpf Urine Mucus (None) /hpf Microbiology - Last 24 Hours (Table) 12/12/19 12:40 Urine Culture - Preliminary Urine,Voided Assessment and Plan Assessment: patient presented to hospital with sepsis--- fever , tachycardia , leukocytosis-- increasing shortness of breath and cough and this patient did have evidence of bilateral diffuse infiltrate elevated LDH and exposure to other coworkers with the covenant infection high clinical suspicious for acute COVID- 19 pneumonia (1) Sepsis Current Visit: Yes Status: Acute Code(s): A41.9 - SEPSIS, UNSPECIFIED ORGANISM SNOMED Code(s): 17205465 (2) Suspected COVID-19 virus infection Current Visit: Yes Status: Acute Code(s): R68.89 - OTHER GENERAL SYMPTOMS AND SIGNS SNOMED Code(s): 996349314 Plan: 1-patient with you with the Plaquenil per protocol along with Zithromax and low- dose steroids 2-respiratory droplet isolation and respiratory support We will follow on clinical condition and cultures to further adjust medication if needed Thank you for this consultation we will follow the patient along with you Time with Patient: Greater than 30
[2019-12-13] MEDS: guaiFENesin-Coden 100-10MG/5ML 10 ML CUP PO PRN ×3 (00:33→06:48)
[2019-12-13 04:44] LABS: Anisocytosis Slight; Basophils % (A) 0 %; Eosinophils % (A) 0 %; HCT 33.2 % (34.0-46.0); Hypochromasia Marked; Lymphocytes # (A) 0.3 k/uL (1.0-4.8); Lymphocytes % (A) 2 %; MCH 25.1 pg (25.0-35.0); MCHC 29.3 g/dL (31.0-37.0); MCV 85.6 fL (80.0-100.0); Mean Platelet Volume 8.4; Monocytes # (A) 0.6 k/uL (0-1.0); Monocytes % (A) 5 %; Neutrophils # (A) 11.3 k/uL (1.3-7.7); Neutrophils % (A) 92 %; Platelet Count 200 k/uL (150-450); Poikilocytosis Slight; RBC 3.88 m/uL (3.80-5.40); WBC 12.3 k/uL (3.8-10.6)
[2019-12-13 04:49] LABS: HGB 9.8 gm/dL (11.4-16.0)
[2019-12-13 05:00] LABS: Calcium 8.5 mg/dL (8.4-10.2); Potassium 4.7 mmol/L (3.5-5.1); Total Bilirubin 0.4 mg/dL (0.2-1.3); Total Protein 5.7 g/dL (6.3-8.2)
[2019-12-13 05:36] LABS: C Reactive Protein 404.5 mg/L (<10.0)
[2019-12-13] MEDS: INSULIN ASPART (NovoLOG) 100 UNIT/ML VIAL SQ SCH (05:54)
[2019-12-13] MEDS: predniSONE 20 MG TAB PO SCH (05:55)
--- NOTE | 2019-12-13 07:03 | XR ---
EXAMINATION TYPE: XR chest 1V DATE OF EXAM: 12/13/2019 COMPARISON: 12/12/2019 HISTORY: 59-year-old female with line placement TECHNIQUE: Single frontal view of the chest is obtained. FINDINGS: Right IJ CVC tip in the lower right internal jugular vein region, unchanged. Heart remains mildly enl arged. Multifocal patchy and confluent airspace opacities, greatest in the right upper lobe and left lower lung. Consolidation is slightly more confluent at the left base. No pleural effusion. IMPRESSION: Multifocal patchy and confluent airspace disease persists, slightly worsened at the left lower lung.
--- NOTE | 2019-12-13 07:29 | CDI ---
Documentation Clarification Form Date: 12/13/2019 07:25:59 AM From: Alecia Victor RN, CCDS Admit Date: 12/12/2019 02:23:00 PM Patient Name: Marcy Rey Visit Number: [id number] ATTENTION: The Clinical Documentation Specialists (CDI) and [facility] Coding Staff appreciate your assistance in clarifying documentation. Please respond to the clarification below the line at the bottom and electronically sign. The CDI & [facility] Coding staff will review the response and follow-up if needed. Please note: Queries are made part of the Legal Health Record. If you have any questions, please contact the author of this message via ITS. Dr. Thomas Ricketts Diastolic CHF is documented in the H&P and requires and acuity. History/Risk Factors: Diastolic CHF, Myasthenia Gravis, MS, Sepsis with COVID pneumonia, acute hypoxic respiratory distress, COPD, asthma Clinical Indicators: 12/12 0600 VS/Pulse OX: Temp 97.9 axillary, HR 98, RR 38, B/P 103/60, Spo2 90% on 100% NRB BNP: 370 02/25/2018 Echocardiogram Results: EF 55-60% 12/11 Chest X Ray: "Progressive pneumonia." Treatment: Lasix 20 mg PO QD 2L IVF 0.9% NS Bolus In your professional opinion, can you please clarify the acuity of CHF if known? Chronic Diastolic Heart Failure: Unable to Determine Other, please specify (Last Revision: December 2017) MTDD
[2019-12-13] MEDS ORDERED: INSULIN ASPART (NovoLOG) 100 UNIT/ML VIAL SQ SCH ×2 (07:30→12:00)
--- NOTE | 2019-12-13 07:42 | CDI ---
Documentation Clarification Form Date: 12/13/2019 07:30:11 AM From: Alecia Victor RN, CCDS Admit Date: 12/12/2019 02:23:00 PM Patient Name: Marcy Rey Visit Number: [id number] ATTENTION: The Clinical Documentation Specialists (CDI) and [facility] Coding Staff appreciate your assistance in clarifying documentation. Please respond to the clarification below the line at the bottom and electronically sign. The CDI & [facility] Coding staff will review the response and follow-up if needed. Please note: Queries are made part of the Legal Health Record. If you have any questions, please contact the author of this message via ITS. Dr. Thomas Ricketts Poorly controlled diabetes has been documented and requires further specificity. History/Risk Factors: DM2, MS, Myasthenia gravis, COPD, MO with previous BMI 42.9 Clinical Indicators: 12/11 H&P: " Insulin-dependent diabetes mellitus, poorly controlled." 12/11-12/12 Glucose 234/328 Treatment: Sliding scale Novolog SQ Q 6 hrs In order to capture the severity of Illness and necessary documentation specificity, please clarify: DM Type 2 with hyperglycemia Other, please specify Unable to Determine Please document any body system complications or specific manifestations related to the diabetes: Diabetic Nephropathy Diabetic Autonomic Neuropathy Diabetic Amyotrophy Diabetic Peripheral Vascular Disease Proliferative diabetic retinopathy with macular edema Diabetic foot ulcers, specify location Ketoacidosis Hypoglycemia with or without coma Hyperglycemia Hyperosmolarity Coma/nonketotic hyperglycemic-hyperosmolar coma Other condition (Last Revision: June 2017) MTDD
--- NOTE | 2019-12-13 08:11 | CDI ---
Documentation Clarification Form Date: 12/13/2019 07:43:53 AM From: Alecia Victor RN, CCDS Admit Date: 12/12/2019 02:23:00 PM Patient Name: Marcy Rey Visit Number: [id number] ATTENTION: The Clinical Documentation Specialists (CDI) and [facility] Coding Staff appreciate your assistance in clarifying documentation. Please respond to the clarification below the line at the bottom and electronically sign. The CDI & [facility] Coding staff will review the response and follow-up if needed. Please note: Queries are made part of the Legal Health Record. If you have any questions, please contact the author of this message via ITS. Dr. Thomas Ricketts Acute hypoxic respiratory distress is documented and requires further specificity to accurately reflect the patients clinical condition. History/Risk Factors: Asthma, COPD, DM, Myasthenia Gravis, MS Tobacco use: former smoker Home oxygen: none Clinical Indicators: 12/11 ID : "on arrival to the ER patient did have a fever of 103 F she was tachycardic slightly hypoxic he did have elevated white count no need for pain in the with elevated LDH of 1210 patient had influenza testing which was negative COVID-19 PCR has been sent which is currently pending patient did have a chest x-ray multifocal PO and interstitial opacities patient has been admitted to ICU because of her compromised respiratory status started on Plaquenil Rocephin and Zithromax infectious was consulted for further recommendation regarding antibiotic therapy." 12/11 H&P: 14-point review of systems negative except for severe respiratory distress as mentioned above, history of asthma, COPD, type 2 diabetes mellitus, myasthenia gravis, Acute hypoxic respiratory distress." 12/11 1444 Vital signs: Temp 100.9, rr ranges 18-40, Spo2 needs increased from 4l to 6L to 100 % NRB initially 100& H&P Lung/Breathing assessment: "LUNGS: Show scattered rhonchi and wheeze." ABG/CBG: pH 7.35 pO2 143 pCO2 25 Lactate -2.4 Treatment: Breathing TX: none ordered Prednisone 60 mg Po Q 12 hrs Plaquenil 400 mg PO BID Lasix 20 mg Po QD Zithromax 500 mf IVPB QD Ceftriaxone 1gm IVPB Q 24 hrs Continuous Pulse ox per ICU Protocol O2: 4l increased to 6L increased to 100% NRB with saturations continuing to decompensate. In your professional opinion, can you please clarify if these findings signify one of the following conditions? Acute Hypoxic Respiratory Failure Acute Hypercapnic Respiratory Failure Acute on Chronic Hypoxic Respiratory Failure Acute on Chronic Hypercapnic Respiratory Failure Other Diagnosis, please specify Unable to determine (Last Query Form Revision: May 2019) MTDD
[2019-12-13] MEDS: AZITHROMYCIN 500 MG in SODIUM CHLORIDE 0.9% 250 ML IVPB SCH (08:21)
--- NOTE | 2019-12-13 08:45 | CDI ---
Documentation Clarification Form Date: 12/13/2019 08:42:00 AM From: Alecia Victor RN, CCDS Admit Date: 12/12/2019 02:23:00 PM Patient Name: Marcy Rey Visit Number: [id number] ATTENTION: The Clinical Documentation Specialists (CDI) and [facility] Coding Staff appreciate your assistance in clarifying documentation. Please respond to the clarification below the line at the bottom and electronically sign. The CDI & [facility] Coding staff will review the response and follow-up if needed. Please note: Queries are made part of the Legal Health Record. If you have any questions, please contact the author of this message via ITS. Dr. Thomas Ricketts The Patient is being maintained on a Levophed drip, please document a clinically significant diagnosis for treatment to accurately reflect this patient's SOI/ROM. Patient history/risk factors: Myasthenia gravis, MS, DM2 Clinical Indicators: 12/11 H&P: "Multifocal pneumonia, COVID suspect with sepsis with pneumonia. Acute hypoxic respiratory distress" 12/11 1313 Vitals: HR 130, RR 26, B/P 88/52, Spo2 94% 4L NC 12/11 1400 Vitals: Temp 100.9, HR 123, RR 40, B/P 77/65, Spo2 94% 6L NC 12/11 1442 Vitals: HR 124, RR 26, B/P 74/34, Spo2 100% on 100% NRB Treatment: 12/11 1445 Levophed Drip started- titrate for B/P 4/6 2l 0.9% NS IVF bolus followed by 75 cc/hr In your professional opinion, can you please specify the appropriate diagnosis for the patient being maintained on a Levophed gtt, if known? Septic Shock Suspected or known causative organism Any associated organ failure Hypovolemic Shock Cause Hypotension (please specify cause if known) Other, please specify Unable to determine (Last Revision: June 2017) MTDD
[2019-12-13 08:52] LABS: ABG HCO3 25 mmol/L (21-25); ABG Oxygen Saturation 88.3 % (94-97); ABG PCO2 51 mmHg (35-45); ABG PH 7.29 (7.35-7.45); ABG TCO2 26 mmol/L (19-24); Allen Test Performed? Yes
[2019-12-13] MEDS ORDERED: levETIRAcetam 250 MG TAB PO SCH (09:00)
[2019-12-13] MEDS ORDERED: INSULIN DETEMIR (LEVEMIR) 100 UNIT/ML SYR SQ SCH (09:00)
[2019-12-13] MEDS ORDERED: AZITHROMYCIN 500 MG in SODIUM CHLORIDE 0.9% 250 ML IVPB SCH (09:00)
[2019-12-13] MEDS: PROPOFOL 1,000 MG in EMPTY BAG 1 BAG IV SCH ×6 (09:15→23:15)
[2019-12-13] MEDS: fentaNYL (PF) 1,000 MCG in SODIUM CHLORIDE 0.9% 80 ML IV SCH ×2 (09:33→18:54)
[2019-12-13 09:46] LABS: ABG Base Excess -3.6 mmol/L; ABG HCO3 24 mmol/L (21-25); ABG Oxygen Saturation 89.1 % (94-97); ABG PCO2 59 mmHg (35-45); ABG PH 7.22 (7.35-7.45); ABG PO2 61 mmHg (83-108); ABG TCO2 26 mmol/L (19-24)
[2019-12-13 09:49] LABS: Allen Test Performed? no
[2019-12-13 09:50] LABS: ABG PO2 54 mmHg (83-108)
[2019-12-13] MEDS ORDERED: HYDROXYCHLOROQUINE ORAL SUSP 200 MG/8 ML ORAL.SYRG PO ONE (10:45)
--- NOTE | 2019-12-13 10:52 | XR ---
EXAMINATION TYPE: XR chest 1V portable DATE OF EXAM: 12/13/2019 Comparison: 12/13/2019 Clinical History: 59-year-old female tube placement Findings: ET tube tip remains at the level of the medial clavicular heads. NG tube courses to the diaphragm but there is motion and underpenetration limiting visualization of the distal aspect. It may be beyond t he [id number]. Heart mildly enlarged. Right IJ CVC tip in the lower internal jugular vein region. Worsening airspace opacity throughout the right lung and persistent airspace opacity left lower lung. Impression: 1. Distal aspect of the NG tube is not well-seen due to underpenetration and motion. 2. Right IJ tip remains in the expected lower right IJV. 3. Similar cardiomegaly. Worsening airspace disease throughout the right lung. Similar airspace disea se left lower lung.
[2019-12-13] MEDS: levETIRAcetam ORAL SOLN 500 MG/5 ML CUP PO SCH ×2 (11:10→21:00)
[2019-12-13] MEDS: HYDROCORTISONE SUCCINATE 100 MG/2 ML VIAL IV SCH ×3 (11:12→23:16)
[2019-12-13] MEDS: DILTIAZEM ORAL 60 MG TAB PO SCH ×3 (11:14→20:22)
[2019-12-13] MEDS: FUROSEMIDE 20 MG TAB PO SCH (11:14)
[2019-12-13 11:34] LABS: Ferritin 94.3 ng/mL (10.0-291.0)
[2019-12-13 11:42] LABS: Glucose,Whole Blood 304 mg/dL (75-99)
[2019-12-13] MEDS: SODIUM CHLORIDE 0.9% 1,000 ML IV SCH ×2 (12:00→21:01)
[2019-12-13 12:04] LABS: Glucose,Whole Blood 331 mg/dL (75-99)
[2019-12-13] MEDS: HYDROXYCHLOROQUINE SULFATE 200 MG TAB PO SCH (12:12)
[2019-12-13] MEDS: INSULIN REGULAR 100 UNIT in SODIUM CHLORIDE 0.9% 100 ML IV SCH ×2 (12:21→18:23)
[2019-12-13] MEDS: NOREPINEPHRINE 4 MG in SODIUM CHLORIDE 0.9% 250 ML IV SCH (12:23)
--- NOTE | 2019-12-13 13:00 | P.PN ---
Subjective Progress Note Date: 12/13/19 Patient apparently decompensated overnight, and got intubated, now on mechanical ventilation. According to the nursing report, patient's myasthenia symptoms had been stable. She was not complaining of double vision, or ptosis. At present patient is on propofol 75 g and 0.5 fentanyl. Objective - Vital Signs Vital signs: Vital Signs Temp 98.6 F 12/13/19 08:00 Pulse 73 12/13/19 12:00 Resp 24 12/13/19 12:00 BP 95/60 12/13/19 12:00 Pulse Ox 94 L 12/13/19 12:00 Intake & Output 12/12/19 12/13/19 12/13/19 18:59 06:59 18:59 Intake Total 514.002 8307.511 929.890 Output Total 200 855 275 Balance -19.093 276.511 654.890 Weight 83.915 kg 83.9 kg Intake: IV 150 900 809 Azithromycin 500 mg In 250 Sodium Chloride 0.9% 250 ml @ 250 mls/hr IVPB DAILY [facility] Rx#:[id number] Pressure Bag 9 Sodium Chloride 0.9% 1, 150 900 450 000 ml @ 75 mls/hr IV . [id number] [facility] Rx#:[id number] cefTRIAXone 1 gm In 100 Sodium Chloride 0.9% 50 ml @ 100 mls/hr IVPB ONCE [facility] Rx#:[id number] Intake, IV Titration 30.907 131.511 120.890 Amount Norepinephrine 4 mg In 30.907 131.511 120.890 Sodium Chloride 0.9% 250 ml @ 0.05 MCG/KG/MIN 15. 986 mls/hr IV .[id number] [facility] Rx#:[id number] Oral 100 Output: Urine 200 855 275 Other: Voiding Method Indwelling Catheter Indwelling Catheter Indwelling Catheter # Voids 1 ABP, PAP, CO, CI - Last Documented Arterial Blood Pressure 103/54 - Exam Patient on mechanical ventilation, sedated. - Labs CBC & Chem 7: 12/13/19 04:20 12/13/19 04:20 Labs: Abnormal Lab Results - Last 24 Hours (Table) 12/12/19 12/12/19 12/12/19 Range/Units 11:04 14:35 15:30 WBC (3.8-10.6) k/uL Hgb (11.4-16.0) gm/dL Hct (34.0-46.0) % MCHC (31.0-37.0) g/dL RDW (11.5-15.5) % Neutrophils # (1.3-7.7) k/uL Lymphocytes # (1.0-4.8) k/uL ABG pH (7.35-7.45) ABG pCO2 (35-45) mmHg ABG pO2 143 H (83-108) mmHg ABG Total CO2 25 H (19-24) mmol/L ABG O2 Saturation 99.6 H (94-97) % BUN (7-17) mg/dL Creatinine (0.52-1.04) mg/dL Glucose (74-99) mg/dL POC Glucose (mg/dL) (75-99) mg/dL AST (14-36) U/L ALT (4-34) U/L Lactate Dehydrogenase (313-618) U/L C-Reactive Protein (<10.0) mg/L Total Protein (6.3-8.2) g/dL Albumin (3.5-5.0) g/dL Procalcitonin 5.52 H (0.02-0.09) ng/mL Coronavirus (PCR) Detected H (Not Detected) 12/12/19 12/12/19 12/13/19 Range/Units 16:33 23:44 04:20 WBC 12.3 H (3.8-10.6) k/uL Hgb 9.8 L D (11.4-16.0) gm/dL Hct 33.2 L (34.0-46.0) % MCHC 29.3 L (31.0-37.0) g/dL RDW 16.0 H (11.5-15.5) % Neutrophils # 11.3 H (1.3-7.7) k/uL Lymphocytes # 0.3 L (1.0-4.8) k/uL ABG pH (7.35-7.45) ABG pCO2 (35-45) mmHg ABG pO2 (83-108) mmHg ABG Total CO2 (19-24) mmol/L ABG O2 Saturation (94-97) % BUN (7-17) mg/dL Creatinine (0.52-1.04) mg/dL Glucose (74-99) mg/dL POC Glucose (mg/dL) 218 H 342 H (75-99) mg/dL AST (14-36) U/L ALT (4-34) U/L Lactate Dehydrogenase (313-618) U/L C-Reactive Protein (<10.0) mg/L Total Protein (6.3-8.2) g/dL Albumin (3.5-5.0) g/dL Procalcitonin (0.02-0.09) ng/mL Coronavirus (PCR) (Not Detected) 12/13/19 12/13/19 12/13/19 Range/Units 04: 08:49 09:42 WBC (3.8-10.6) k/uL Hgb (11.4-16.0) gm/dL Hct (34.0-46.0) % MCHC (31.0-37.0) g/dL RDW (11.5-15.5) % Neutrophils # (1.3-7.7) k/uL Lymphocytes # (1.0-4.8) k/uL ABG pH 7.29 L 7.22 L (7.35-7.45) ABG pCO2 51 H 59 H (35-45) mmHg ABG pO2 54 L* 61 L (83-108) mmHg ABG Total CO2 26 H 26 H (19-24) mmol/L ABG O2 Saturation 88.3 L 89.1 L (94-97) % BUN 20 H (7-17) mg/dL Creatinine 1.20 H (0.52-1.04) mg/dL Glucose 328 H (74-99) mg/dL POC Glucose (mg/dL) (75-99) mg/dL AST 53 H (14-36) U/L ALT 80 H (4-34) U/L Lactate Dehydrogenase 1285 H (313-618) U/L C-Reactive Protein 404.5 H (<10.0) mg/L Total Protein 5.7 L (6.3-8.2) g/dL Albumin 3.0 L (3.5-5.0) g/dL Procalcitonin (0.02-0.09) ng/mL Coronavirus (PCR) (Not Detected) 12/13/19 12/13/19 Range/Units 11:31 12:02 WBC (3.8-10.6) k/uL Hgb (11.4-16.0) gm/dL Hct (34.0-46.0) % MCHC (31.0-37.0) g/dL RDW (11.5-15.5) % Neutrophils # (1.3-7.7) k/uL Lymphocytes # (1.0-4.8) k/uL ABG pH (7.35-7.45) ABG pCO2 (35-45) mmHg ABG pO2 (83-108) mmHg ABG Total CO2 (19-24) mmol/L ABG O2 Saturation (94-97) % BUN (7-17) mg/dL Creatinine (0.52-1.04) mg/dL Glucose (74-99) mg/dL POC Glucose (mg/dL) 304 H 331 H (75-99) mg/dL AST (14-36) U/L ALT (4-34) U/L Lactate Dehydrogenase (313-618) U/L C-Reactive Protein (<10.0) mg/L Total Protein (6.3-8.2) g/dL Albumin (3.5-5.0) g/dL Procalcitonin (0.02-0.09) ng/mL Coronavirus (PCR) (Not Detected) Microbiology - Last 24 Hours (Table) 12/12/19 12:40 Urine Culture - Preliminary Urine,Voided Assessment and Plan Assessment: * Myasthenia gravis, currently in remission. Patient is status post treatment with IVIG about a month ago for myasthenia gravis exacerbation. * Acute multifocal pneumonia, with high fever, Covid suspect * Diabetes poorly controlled * Obesity Plan: * Patient's myasthenia gravis is in remission at this time. * Acute issue is bilateral pneumonia and possible Covid infection. Patient has been started on hydroxychloroquine at recommended does for possible Covid. This medication has to be given with "caution" to patient's with myasthenia gravis, but at this time, benefits outweigh the risks. * If she develops any myasthenia gravis exacerbation, we will consider treatment with IVIG. * Patient is also receiving high-dose steroids for Covid, which may help with her myasthenia as well. * Your medical management. * Please call neurology, if she develops any symptoms of myasthenia gravis.
[2019-12-13 13:13] LABS: Glucose,Whole Blood 294 mg/dL (75-99)
[2019-12-13 13:41] LABS: ABG Base Excess -4.4 mmol/L; ABG HCO3 22 mmol/L (21-25); ABG Oxygen Saturation 96.9 % (94-97); ABG PCO2 47 mmHg (35-45); ABG PH 7.28 (7.35-7.45); ABG PO2 87 mmHg (83-108); ABG TCO2 24 mmol/L (19-24)
[2019-12-13 13:46] LABS: Allen Test Performed? no
[2019-12-13 13:58] LABS: Glucose,Whole Blood 293 mg/dL (75-99)
--- NOTE | 2019-12-13 14:15 | P.CNPUL ---
History of Present Illness Consult date: 12/13/19 Reason for consult: pneumonia Chief complaint: Fever and shortness of breath History of present illness: This is a 59-year-old female with history of multiple medical problems including myasthenia gravis, type 2 diabetes, hypertension, GERD without esophagitis, patient is chronically on prednisone for underlying myasthenia gravis. Patient presented to the ER with 1 day history of increased shortness of breath, fever and cough. She was recently exposed to coworkers with proven positive covid 19 infection. Patient had no symptoms of nausea or vomiting, no abdominal pain, no diarrhea, no loss of sensation of smell or taste. In the ER the patient was noted to have a temp of 103. She was tachycardic and the relatively hypoxic. She was placed on a nonrebreather mask, transition to a high flow nasal cannula re-transitioned again to a non-rebreather mask, and she was admitted to the intensive care unit overnight. Patient clearly had significant elevated markers for covid 19 pneumonitis including significantly abnormal chest x-ray showing bilateral interstitial infiltrates. Her LDH was elevated. Her influenza screen was negative. And again her chest x-ray showed multifocal infiltrates. Patient was empirically placed on Actonel Rocephin and Zithromax, and shortly after I saw the patient, check ABG on the patient and clearly showed worsening hypoxic and hypercapnic respiratory failure. Patient was intubated and placed on mechanical ventilation. Patient also required propofol, fentanyl, and small dose of norepinephrine at 0.03 mcg/kg/m. Present ventilatory settings are assist control rate of 24 volume is 450 FiO2 is 100% and PEEP is 16. Peak airway pressure is 35, plateau pressure is 30. Patient was chronically on prednisone and this was switched to Cortef at 50 mg IV push every 8 hours. Review of Systems ROS unobtainable: due to endotracheal tube Past Medical History Past Medical History: Asthma, COPD, Diabetes Mellitus, GERD/Reflux, Hypertension, Neurologic Disorder, Osteoarthritis (OA), Renal Disease Additional Past Medical History / Comment(s): Morbid obesity with a BMI of 42.9, gout, hypertension, diabetes mellitus, myasthenia gravis, herniated discs History of Any Multi-Drug Resistant Organisms: MRSA Date of last positivie culture/infection: 2013 MDRO Source:: eye Past Surgical History: Adenoidectomy, Section, Cholecystectomy, Heart Catheterization, Hysterectomy, Tonsillectomy Additional Past Surgical History / Comment(s): laser eye sx for glaucoma. at times gets dizzy when up, small bowel obstruction and lysis of adhesions in January 2019 Past Anesthesia/Blood Transfusion Reactions: Motion Sickness, Postoperative Nausea & Vomiting (PONV) Additional Past Anesthesia/Blood Transfusion Reaction / Comment(s): clausterphobia Past Psychological History: Anxiety Smoking Status: Former smoker Past Alcohol Use History: None Reported Past Drug Use History: None Reported - Past Family History Father Family Medical History: Cancer, COPD Additional Family Medical History / Comment(s): ashd, amputations d/t vascular dz, skin cancer, gout, Mother Family Medical History: Asthma, Chest Pain / Angina, Congestive Heart Failure (CHF), Dementia, Diabetes Mellitus, Hypertension, Osteoarthritis (OA) Additional Family Medical History / Comment(s): glaucoma,gout, neuropathy Medications and Allergies Home Medications Medication Instructions Recorded Confirmed Type Allopurinol [Zyloprim] 50 mg PO DAILY 09/28/15 05/12/19 History Aspirin 81 mg PO DAILY 09/28/15 05/12/19 History Insulin Glargine [Lantus] 50 unit SQ BID 09/28/15 12/12/19 History Omeprazole [PriLOSEC] 20 mg PO AC-BID 09/28/15 12/12/19 History Topiramate [Topamax] 50 mg PO BID 09/28/15 12/12/19 History Amitriptyline HCl [Elavil] 10 mg PO HS 10/03/18 12/12/19 History Butalb/Acetaminophen/Caffeine 1 tab PO Q8HR PRN 10/03/18 12/12/19 History [Fioricet 50-300-40 mg Capsule] Ergocalciferol (Vitamin D2) 50,000 unit PO WE 05/12/19 12/12/19 History [Drisdol] INSULIN ASPART (NovoLOG) [NovoLOG 50 unit SQ ACHS 05/12/19 12/12/19 History (formulary)] Potassium Chloride ER [K-Dur 20] 20 meq PO DAILY 05/12/19 12/12/19 History levETIRAcetam [Keppra] 250 mg PO Q12HR 05/12/19 05/12/19 History Lisinopril [Zestril] 10 mg PO DAILY tab 05/21/19 12/12/19 Rx Albuterol Inhaler [Ventolin Hfa 1 puff INHALATION RT-Q4H PRN 12/12/19 12/12/19 History Inhaler] Carbidopa-Levodopa 10-100 mg 1 tab PO BID 12/12/19 12/12/19 History [Sinemet 10-100] Diltiazem HCl [Cardizem] 120 mg PO TID 12/12/19 12/12/19 History Furosemide [Lasix] 20 mg PO DAILY 12/12/19 History predniSONE 15 mg PO BID 12/12/19 12/12/19 History Allergies Allergy/AdvReac Type Severity Reaction Status Date / Time aspartame Allergy Unknown Verified 05/12/19 17:42 [From Nutrasweet Aspartame] ciprofloxacin Allergy Unknown Verified 05/12/19 17:42 Penicillins Allergy Unknown Verified 05/12/19 17:42 Sulfa (Sulfonamide Allergy Unknown Verified 05/12/19 17:42 Antibiotics) levofloxacin [From Levaquin] AdvReac Severe Unknown Verified 05/12/19 17:42 Physical Exam Vitals: Vital Signs Temp Pulse Resp BP Pulse Ox 12/13/19 12:00 73 24 95/60 94 L 12/13/19 11:30 75 24 95/60 94 L 12/13/19 11:00 77 24 93/61 91 L 12/13/19 10:30 79 24 93/61 90 L 12/13/19 10:15 81 24 93/61 89 L 12/13/19 10:00 84 19 81/56 86 L 12/13/19 09:45 86 18 127/65 87 L 12/13/19 09:30 104 H 30 H 116/77 90 L 12/13/19 09:15 91 13 92/60 78 L 12/13/19 09:00 95 29 H 123/72 85 L 12/13/19 08:45 92 26 H 104/69 86 L 12/13/19 08:30 86 23 101/63 89 L 12/13/19 08:15 86 23 114/68 88 L 12/13/19 08:00 98.6 F 92 24 120/68 88 L 12/13/19 07:45 90 20 110/67 89 L 12/13/19 07:30 90 23 102/70 91 L 12/13/19 07:15 91 25 H 112/69 91 L 12/13/19 07:00 91 25 H 118/68 90 L 12/13/19 06:30 93 25 H 117/63 89 L 12/13/19 06:00 98 38 H 103/60 90 L 12/13/19 05:30 92 28 H 106/64 88 L 12/13/19 05:00 87 23 101/57 89 L 12/13/19 04:30 90 28 H 123/69 91 L 12/13/19 04:00 97.9 F 88 25 H 115/67 92 L 12/13/19 03:30 88 27 H 114/62 91 L 12/13/19 03:00 87 25 H 120/61 89 L 12/13/19 02:30 90 23 101/57 88 L 12/13/19 02:00 92 25 H 122/47 90 L 12/13/19 01:30 94 25 H 116/61 90 L 12/13/19 01:00 100 30 H 124/66 89 L 12/13/19 00:30 108 H 16 124/74 92 L 12/13/19 00:25 111 H 25 H 124/74 92 L 12/13/19 00:00 100.1 F H 108 H 35 H 114/65 93 L 12/12/19 23:30 109 H 40 H 116/71 92 L 12/12/19 23:00 106 H 38 H 109/55 93 L 12/12/19 22:30 115 H 34 H 110/67 92 L 12/12/19 22:00 113 H 32 H 119/62 96 12/12/19 21:30 115 H 27 H 113/87 83 L 12/12/19 21:00 120 H 32 H 99/55 90 L 12/12/19 20:30 120 H 20 129/57 96 12/12/19 20:00 98.9 F 125 H 32 H 125/73 94 L 12/12/19 19:30 128 H 35 H 129/66 97 12/12/19 19:00 130 H 39 H 120/66 99 12/12/19 18:30 130 H 28 H 105/61 100 12/12/19 18:00 130 H 32 H 110/84 96 12/12/19 17:30 131 H 27 H 97/56 99 04/06/20 17:00 101.5 F H 131 H 32 H 96/62 99 12/12/19 16:30 128 H 34 H 12/12/19 16:29 127 H 22 111/56 98 12/12/19 15:54 128 H 18 107/60 100 12/12/19 14:44 121 H 26 H 103/53 100 12/12/19 14:42 124 H 18 74/34 100 Intake and Output 12/12/19 12/13/19 12/13/19 22:59 06:59 14:59 Intake Total 595.454 495.442 5690.733 Output Total 305 650 305 Balance 290.454 66.964 720.733 Intake: IV 450 600 887 Azithromycin 500 mg In 250 Sodium Chloride 0.9% 250 ml @ 250 mls/hr IVPB DAILY [facility] Rx#:[id number] Pressure Bag 12 Sodium Chloride 0.9% 1, 450 600 525 000 ml @ 75 mls/hr IV . [id number] [facility] Rx#:[id number] cefTRIAXone 1 gm In 100 Sodium Chloride 0.9% 50 ml @ 100 mls/hr IVPB ONCE [facility] Rx#:[id number] Intake, IV Titration 45.454 116.964 138.733 Amount Insulin Regular 100 unit 17.843 In Sodium Chloride 0.9% 100 ml @ Per Protocol IV .Q0M [facility] Rx#:[id number] Norepinephrine 4 mg In 45.454 116.964 120.890 Sodium Chloride 0.9% 250 ml @ 0.05 MCG/KG/MIN 15. 986 mls/hr IV .[id number] [facility] Rx#:[id number] Oral 100 Output: Urine 305 650 305 Other: Voiding Method Indwelling Catheter Indwelling Catheter Indwelling Catheter Weight 83.9 kg 83.9 kg ABP, PAP, CO, CI - Last 8 Hours Arterial Blood Pressure 103/54 Arterial Blood Pressure 91/50 Arterial Blood Pressure 84/47 Arterial Blood Pressure 86/48 Arterial Blood Pressure 67/47 Physical Exam: Revealed a 59-year-old female on mechanical ventilation, sedated on propofol and fentanyl. Head: Cushingoid, no neck masses, endotracheal tube and orogastric tube is intact. HEENT:[Neck is supple.] PERRLA, EOMI, no icterus, no JVD. Chest: [Diminished breath sounds and crackles at the bases. Rhonchi also noted bilaterally] Cardiac Exam: [Normal S1 and S2, no S3 gallop, no murmur.] Abdomen: [Obese, Soft, nontender, no megaly, no rebound, no guarding, normal bowel sounds.] Extremities: [No clubbing, no edema, no cyanosis.] Neurological Exam: Cannot be assessed, patient is sedated and on mechanical ventilation on propofol and fentanyl. Psychiatric: Could not be assessed. Skin: No rashes. Musculoskeletal: No deformities. Results - Laboratory Findings CBC and BMP: 12/13/19 04:20 12/13/19 04:20 ABG ABG pH 7.28 (7.35-7.45) L 12/13/19 13:35 ABG pCO2 47 mmHg (35-45) H 12/13/19 13:35 ABG pO2 87 mmHg (83-108) 12/13/19 13:35 ABG O2 Saturation 96.9 % (94-97) 12/13/19 13:35 PT/INR, D-dimer PT 9.5 sec (9.0-12.0) 12/12/19 11:04 INR 0.9 (<1.2) 12/12/19 11:04 D-Dimer 0.54 mg/L FEU (<0.60) 12/12/19 15:30 Abnormal lab findings: Abnormal Labs 12/12/19 12/12/19 12/12/19 11:04 11:04 11:04 WBC 17.7 H Hgb Hct MCHC 30.9 L RDW 15.9 H Neutrophils # 15.5 H Lymphocytes # ABG pH ABG pCO2 ABG pO2 ABG Total CO2 ABG O2 Saturation Potassium 3.4 L BUN 19 H Creatinine 1.40 H Glucose 234 H POC Glucose (mg/dL) Plasma Lactic Acid Chaka 3.2 H* AST 59 H ALT 84 H Lactate Dehydrogenase Troponin I C-Reactive Protein 207.8 H Total Protein Albumin Procalcitonin Urine Appearance Urine Protein Urine Glucose (UA) Urine Ketones Ur Leukocyte Esterase Urine WBC Urine Bacteria Urine Mucus Coronavirus (PCR) 12/12/19 12/12/19 12/12/19 11:04 11:04 11:04 WBC Hgb Hct MCHC RDW Neutrophils # Lymphocytes # ABG pH ABG pCO2 ABG pO2 ABG Total CO2 ABG O2 Saturation Potassium BUN Creatinine Glucose POC Glucose (mg/dL) Plasma Lactic Acid Chaka AST ALT Lactate Dehydrogenase 1210 H Troponin I 0.064 H* C-Reactive Protein Total Protein Albumin Procalcitonin Urine Appearance Urine Protein Urine Glucose (UA) Urine Ketones Ur Leukocyte Esterase Urine WBC Urine Bacteria Urine Mucus Coronavirus (PCR) Detected H 12/12/19 12/12/19 12/12/19 12:40 14:35 15:30 WBC Hgb Hct MCHC RDW Neutrophils # Lymphocytes # ABG pH ABG pCO2 ABG pO2 143 H ABG Total CO2 25 H ABG O2 Saturation 99.6 H Potassium BUN Creatinine Glucose POC Glucose (mg/dL) Plasma Lactic Acid Chaka AST ALT Lactate Dehydrogenase Troponin I C-Reactive Protein Total Protein Albumin Procalcitonin 5.52 H Urine Appearance Cloudy H Urine Protein 2+ H Urine Glucose (UA) 1+ H Urine Ketones 1+ H Ur Leukocyte Esterase Small H Urine WBC 13 H Urine Bacteria Rare H Urine Mucus Few H Coronavirus (PCR) 12/12/19 12/12/19 12/13/19 16:33 23:44 04:20 WBC 12.3 H Hgb 9.8 L D Hct 33.2 L MCHC 29.3 L RDW 16.0 H Neutrophils # 11.3 H Lymphocytes # 0.3 L ABG pH ABG pCO2 ABG pO2 ABG Total CO2 ABG O2 Saturation Potassium BUN Creatinine Glucose POC Glucose (mg/dL) 218 H 342 H Plasma Lactic Acid Chaka AST ALT Lactate Dehydrogenase Troponin I C-Reactive Protein Total Protein Albumin Procalcitonin Urine Appearance Urine Protein Urine Glucose (UA) Urine Ketones Ur Leukocyte Esterase Urine WBC Urine Bacteria Urine Mucus Coronavirus (PCR) 12/13/19 12/13/19 12/13/19 04:20 08:49 09:42 WBC Hgb Hct MCHC RDW Neutrophils # Lymphocytes # ABG pH 7.29 L 7.22 L ABG pCO2 51 H 59 H ABG pO2 54 L* 61 L ABG Total CO2 26 H 26 H ABG O2 Saturation 88.3 L 89.1 L Potassium BUN 20 H Creatinine 1.20 H Glucose 328 H POC Glucose (mg/dL) Plasma Lactic Acid Chaka AST 53 H ALT 80 H Lactate Dehydrogenase 1285 H Troponin I C-Reactive Protein 404.5 H Total Protein 5.7 L Albumin 3.0 L Procalcitonin Urine Appearance Urine Protein Urine Glucose (UA) Urine Ketones Ur Leukocyte Esterase Urine WBC Urine Bacteria Urine Mucus Coronavirus (PCR) 12/13/19 12/13/19 12/13/19 11:31 12:02 13:08 WBC Hgb Hct MCHC RDW Neutrophils # Lymphocytes # ABG pH ABG pCO2 ABG pO2 ABG Total CO2 ABG O2 Saturation Potassium BUN Creatinine Glucose POC Glucose (mg/dL) 304 H 331 H 294 H Plasma Lactic Acid Chaka AST ALT Lactate Dehydrogenase Troponin I C-Reactive Protein Total Protein Albumin Procalcitonin Urine Appearance Urine Protein Urine Glucose (UA) Urine Ketones Ur Leukocyte Esterase Urine WBC Urine Bacteria Urine Mucus Coronavirus (PCR) 12/13/19 12/13/19 13:35 13:53 WBC Hgb Hct MCHC RDW Neutrophils # Lymphocytes # ABG pH 7.28 L ABG pCO2 47 H ABG pO2 ABG Total CO2 ABG O2 Saturation Potassium BUN Creatinine Glucose POC Glucose (mg/dL) 293 H Plasma Lactic Acid Chaka AST ALT Lactate Dehydrogenase Troponin I C-Reactive Protein Total Protein Albumin Procalcitonin Urine Appearance Urine Protein Urine Glucose (UA) Urine Ketones Ur Leukocyte Esterase Urine WBC Urine Bacteria Urine Mucus Coronavirus (PCR) - Diagnostic Findings Chest x-ray: image reviewed (Chest x-ray showed cardiomegaly, worsening airspace disease throughout the right lung and left lung. Mostly left lower lobe) Assessment and Plan Assessment: Impression: Acute hypoxic and hypercapnic respiratory failure secondary to pneumonitis,covid 19 pneumonitis unless for otherwise. Underlying bacterial pneumonia is not entirely ruled out. Especially with elevated pro calcitonin of 5.52. History of myasthenia gravis, in remission however could be contributing to worsening hypercapnic respiratory failure. Acute sepsis and septic shock secondary to pneumonia Type 2 diabetes. Morbid obesity. Recommendation: Continue ventilatory support. Continue nutritional support. Insulin drip for elevated blood sugar. GI and DVT prophylaxis. Continue ceftriaxone, Zithromax, hydroxychloroquine, Change prednisone to Solu-Cortef at 50 mg IV push every 8 hours. We'll continue to follow. Critical care time is 45 minutes not including the time spent on procedures. Time with Patient: Greater than 30
--- NOTE | 2019-12-13 14:48 | P.OP ---
Date of Procedure: 12/13/19 Preoperative Diagnosis: acute hypoxic respiratory failure Postoperative Diagnosis: Acute hypoxic rest or a failure requiring intubation and placement on mechanical ventilation Procedure(s) Performed: Right radial arterial line placement Anesthesia: none Surgeon: Deja Munoz Estimated Blood Loss (ml): 0 Condition: stable Disposition: ICU Indications for Procedure: Hemodynamic monitoring, blood sampling Description of Procedure: Right radial arterial line placement, Nilson's test was performed prior to the procedure, patient out of procedure very well, procedure was uneventful, good waveform was noted, line was flushed waveform was transduced, line was sutured in place, sterile dressing was applied. No immediate complications
[2019-12-13 15:07] LABS: Glucose,Whole Blood 207 mg/dL (75-99)
[2019-12-13 15:59] LABS: Glucose,Whole Blood 202 mg/dL (75-99)
[2019-12-13 16:52] LABS: Glucose,Whole Blood 227 mg/dL (75-99)
[2019-12-13] MEDS: PANTOPRAZOLE 40 MG/10 ML VIAL IVP SCH (17:56)
--- NOTE | 2019-12-13 18:04 | P.PN ---
Subjective Progress Note Date: 12/13/19 This is a 59-year-old female, history of myasthenia gravis and multiple other medical issues exposed to COVID-19 at work, in a psychiatric [facility] in [place] admitted with bilateral pneumonia, possible Covid-19. Influenza screening negative. Tested positive for coronavirus. LDH trending up currently 1285. Maintained on Rocephin, Plaquenil and Zithromax. D-dimer elevated at 0.63. Overnight patient was maintained on a nonrebreather mask. Chest x-ray this morning reporting worsening persistent multifocal patchy and confluent airspace disease, greatest in the right upper and left lower lobes. Dyspnea worsened and patient was intubated this morning. Currentlly on FiO2 of 90%/+16 of PEEP. Maintained on diprovan, fentanyl drip, Levophed. Evaluated by neurology with recommendations noted and appreciated, no IVIG at this time as patient's myasthenia gravis felt to be in remission. Continues on Cortef. Blood sugars elevated, on insulin drip. ABGs noted, acidotic with pH of 7.28, pCO2 47 pO2 87, bicarb 22, total CO2 24, O2 sat 96.9, base excess -4.4 on 100% FiO2. Mild improvement in renal function -Creatinine down to 1.2. Objective - Vital Signs Vital signs: Vital Signs Temp 98 F 12/13/19 16:00 Pulse 67 12/13/19 16:00 Resp 24 12/13/19 16:00 BP 88/55 12/13/19 16:00 Pulse Ox 89 L 12/13/19 16:00 Intake & Output 12/12/19 12/13/19 12/13/19 18:59 06:59 18:59 Intake Total 756.923 4970.511 1422.371 Output Total 200 855 385 Balance -19.093 466.432 6535.371 Weight 83.915 kg 83.9 kg 125.5 kg Intake: IV 960 926 2397 Azithromycin 500 mg In 250 Sodium Chloride 0.9% 250 ml @ 250 mls/hr IVPB DAILY [facility] Rx#:[id number] Pressure Bag 21 Sodium Chloride 0.9% 1, 150 900 750 000 ml @ 75 mls/hr IV . [id number] [facility] Rx#:[id number] cefTRIAXone 1 gm In 100 Sodium Chloride 0.9% 50 ml @ 100 mls/hr IVPB ONCE [facility] Rx#:[id number] Intake, IV Titration 30.907 131.511 228.371 Amount Insulin Regular 100 unit 41.410 In Sodium Chloride 0.9% 100 ml @ Per Protocol IV .Q0M [facility] Rx#:[id number] Norepinephrine 4 mg In 30.907 131.511 120.890 Sodium Chloride 0.9% 250 ml @ 0.05 MCG/KG/MIN 15. 986 mls/hr IV .[id number] [facility] Rx#:[id number] Propofol 1,000 mg In 66.071 Empty Bag 1 bag @ Titrate IV .Q0M [facility] Rx#: [id number] Oral 100 Tube Feeding 33 Other 40 Output: Urine 200 855 385 Other: Voiding Method Indwelling Catheter Indwelling Catheter Indwelling Catheter # Voids 1 ABP, PAP, CO, CI - Last Documented Arterial Blood Pressure 101/59 - Exam PHYSICAL EXAM: VITAL SIGNS: As above GENERAL: Sitting up in bed, intubated and sedated, on mechanical ventilation with propofol and fentanyl HEENT: Cushingoid ,Conjunctivae normal. eyes normal. NECK: No JVD. No thyroid enlargement. No LNs CARDIOVASCULAR: S1, S2 regular. No murmur RESPIRATION: Breath sounds diminished. Scattered Rhonchi with bibasilar crackles. ABDOMEN: Soft, obese, nontender . No guarding. no masses palpable. Bowel sounds heard. LEGS: No edema. no swelling, no cyanosis PSYCHIATRY: Unable to assess patient sedated and on mechanical ventilation NERVOUS SYSTEM: Unable to assess patient sedated and on mechanical ventilation Skin: no rash - Labs CBC & Chem 7: 12/13/19 04:20 12/13/19 04:20 Labs: Abnormal Lab Results - Last 24 Hours (Table) 12/12/19 12/12/19 12/12/19 Range/Units 11:04 15:30 23:44 WBC (3.8-10.6) k/uL Hgb (11.4-16.0) gm/dL Hct (34.0-46.0) % MCHC (31.0-37.0) g/dL RDW (11.5-15.5) % Neutrophils # (1.3-7.7) k/uL Lymphocytes # (1.0-4.8) k/uL D-Dimer (<0.60) mg/L FEU ABG pH (7.35-7.45) ABG pCO2 (35-45) mmHg ABG pO2 (83-108) mmHg ABG Total CO2 (19-24) mmol/L ABG O2 Saturation (94-97) % BUN (7-17) mg/dL Creatinine (0.52-1.04) mg/dL Glucose (74-99) mg/dL POC Glucose (mg/dL) 342 H (75-99) mg/dL AST (14-36) U/L ALT (4-34) U/L Lactate Dehydrogenase (313-618) U/L C-Reactive Protein (<10.0) mg/L Total Protein (6.3-8.2) g/dL Albumin (3.5-5.0) g/dL Procalcitonin 5.52 H (0.02-0.09) ng/mL Coronavirus (PCR) Detected H (Not Detected) 12/13/19 12/13/19 12/13/19 Range/Units 04:20 04:20 08:49 WBC 12.3 H (3.8-10.6) k/uL Hgb 9.8 L D (11.4-16.0) gm/dL Hct 33.2 L (34.0-46.0) % MCHC 29.3 L (31.0-37.0) g/dL RDW 16.0 H (11.5-15.5) % Neutrophils # 11.3 H (1.3-7.7) k/uL Lymphocytes # 0.3 L (1.0-4.8) k/uL D-Dimer (<0.60) mg/L FEU ABG pH 7.29 L (7.35-7.45) ABG pCO2 51 H (35-45) mmHg ABG pO2 54 L* (83-108) mmHg ABG Total CO2 26 H (19-24) mmol/L ABG O2 Saturation 88.3 L (94-97) % BUN 20 H (7-17) mg/dL Creatinine 1.20 H (0.52-1.04) mg/dL Glucose 328 H (74-99) mg/dL POC Glucose (mg/dL) (75-99) mg/dL AST 53 H (14-36) U/L ALT 80 H (4-34) U/L Lactate Dehydrogenase 1285 H (313-618) U/L C-Reactive Protein 404.5 H (<10.0) mg/L Total Protein 5.7 L (6.3-8.2) g/dL Albumin 3.0 L (3.5-5.0) g/dL Procalcitonin (0.02-0.09) ng/mL Coronavirus (PCR) (Not Detected) 12/13/19 12/13/19 12/13/19 Range/Units 09:42 11:31 12:02 WBC (3.8-10.6) k/uL Hgb (11.4-16.0) gm/dL Hct (34.0-46.0) % MCHC (31.0-37.0) g/dL RDW (11.5-15.5) % Neutrophils # (1.3-7.7) k/uL Lymphocytes # (1.0-4.8) k/uL D-Dimer (<0.60) mg/L FEU ABG pH 7.22 L (7.35-7.45) ABG pCO2 59 H (35-45) mmHg ABG pO2 61 L (83-108) mmHg ABG Total CO2 26 H (19-24) mmol/L ABG O2 Saturation 89.1 L (94-97) % BUN (7-17) mg/dL Creatinine (0.52-1.04) mg/dL Glucose (74-99) mg/dL POC Glucose (mg/dL) 304 H 331 H (75-99) mg/dL AST (14-36) U/L ALT (4-34) U/L Lactate Dehydrogenase (313-618) U/L C-Reactive Protein (<10.0) mg/L Total Protein (6.3-8.2) g/dL Albumin (3.5-5.0) g/dL Procalcitonin (0.02-0.09) ng/mL Coronavirus (PCR) (Not Detected) 12/13/19 12/13/19 12/13/19 Range/Units 13:08 13:35 13:53 WBC (3.8-10.6) k/uL Hgb (11.4-16.0) gm/dL Hct (34.0-46.0) % MCHC (31.0-37.0) g/dL RDW (11.5-15.5) % Neutrophils # (1.3-7.7) k/uL Lymphocytes # (1.0-4.8) k/uL D-Dimer (<0.60) mg/L FEU ABG pH 7.28 L (7.35-7.45) ABG pCO2 47 H (35-45) mmHg ABG pO2 (83-108) mmHg ABG Total CO2 (19-24) mmol/L ABG O2 Saturation (94-97) % BUN (7-17) mg/dL Creatinine (0.52-1.04) mg/dL Glucose (74-99) mg/dL POC Glucose (mg/dL) 294 H 293 H (75-99) mg/dL AST (14-36) U/L ALT (4-34) U/L Lactate Dehydrogenase (313-618) U/L C-Reactive Protein (<10.0) mg/L Total Protein (6.3-8.2) g/dL Albumin (3.5-5.0) g/dL Procalcitonin (0.02-0.09) ng/mL Coronavirus (PCR) (Not Detected) 12/13/19 12/13/19 12/13/19 Range/Units 14:49 15:53 16:30 WBC (3.8-10.6) k/uL Hgb (11.4-16.0) gm/dL Hct (34.0-46.0) % MCHC (31.0-37.0) g/dL RDW (11.5-15.5) % Neutrophils # (1.3-7.7) k/uL Lymphocytes # (1.0-4.8) k/uL D-Dimer 0.63 H (<0.60) mg/L FEU ABG pH (7.35-7.45) ABG pCO2 (35-45) mmHg ABG pO2 (83-108) mmHg ABG Total CO2 (19-24) mmol/L ABG O2 Saturation (94-97) % BUN (7-17) mg/dL Creatinine (0.52-1.04) mg/dL Glucose (74-99) mg/dL POC Glucose (mg/dL) 207 H 202 H (75-99) mg/dL AST (14-36) U/L ALT (4-34) U/L Lactate Dehydrogenase (313-618) U/L C-Reactive Protein (<10.0) mg/L Total Protein (6.3-8.2) g/dL Albumin (3.5-5.0) g/dL Procalcitonin (0.02-0.09) ng/mL Coronavirus (PCR) (Not Detected) 12/13/19 Range/Units 16:49 WBC (3.8-10.6) k/uL Hgb (11.4-16.0) gm/dL Hct (34.0-46.0) % MCHC (31.0-37.0) g/dL RDW (11.5-15.5) % Neutrophils # (1.3-7.7) k/uL Lymphocytes # (1.0-4.8) k/uL D-Dimer (<0.60) mg/L FEU ABG pH (7.35-7.45) ABG pCO2 (35-45) mmHg ABG pO2 (83-108) mmHg ABG Total CO2 (19-24) mmol/L ABG O2 Saturation (94-97) % BUN (7-17) mg/dL Creatinine (0.52-1.04) mg/dL Glucose (74-99) mg/dL POC Glucose (mg/dL) 227 H (75-99) mg/dL AST (14-36) U/L ALT (4-34) U/L Lactate Dehydrogenase (313-618) U/L C-Reactive Protein (<10.0) mg/L Total Protein (6.3-8.2) g/dL Albumin (3.5-5.0) g/dL Procalcitonin (0.02-0.09) ng/mL Coronavirus (PCR) (Not Detected) Microbiology - Last 24 Hours (Table) 12/12/19 11:45 Blood Culture - Preliminary Blood No Growth after 24 hours 12/12/19 12:40 Urine Culture - Preliminary Urine,Voided Assessment and Plan Assessment: -Acute COVID-19 multifocal pneumonia -Acute hypoxic and hypercapnic respiratory failure secondary to the above -Acute sepsis with septic shock secondary to #1 -Hypotension, pressor dependent secondary to the above -Diabetes mellitus, type II -Myasthenia gravis, currently in remission, intolerant to Mestinon, monthly treatments with IVIG -History of multiple sclerosis -Morbid obesity, BMI 50.6 -Obstructive sleep apnea, on BiPAP -Diabetes mellitus, uncontrolled, hyperglycemic on insulin drip -Gastroesophageal reflux disease -History of hypertension -Osteoarthritis -Anxiety -Former nicotine dependence -Glaucoma -Seizure disorder -Acute on chronic renal failure, stage III, baseline 1.1 -Chronic diastolic CHF Plan: Continue on current medication regime , PPI, monitoring and symptomatic treatment. Serum Interleukin-6 level ordered, possibly Actermra as per Manager Council/ID. Antibiotics as per infectious disease. Prognosis guarded given multiple complex medical issues. The impression and plan of care has been dictated as directed. : I performed a history and examination of this patient, discussed the same with the dictator. I agree with the dictator's note ,documented as a scribe. Any additional findings or plans will be noted.
[2019-12-13 18:13] LABS: Glucose,Whole Blood 231 mg/dL (75-99)
[2019-12-13 19:03] LABS: Glucose,Whole Blood 241 mg/dL (75-99)
[2019-12-13 19:58] LABS: Glucose,Whole Blood 203 mg/dL (75-99)
[2019-12-13] MEDS: CHLORHEXIDINE GLUCONATE 15 ML CUP MUCOUS MEM SCH (20:22)
[2019-12-13] MEDS: HYDROXYCHLOROQUINE ORAL SUSP 200 MG/8 ML ORAL.SYRG PO SCH (20:22)
[2019-12-13] MEDS ORDERED: HYDROXYCHLOROQUINE SULFATE 200 MG TAB PO SCH (21:00)
[2019-12-13 21:24] LABS: Glucose,Whole Blood 168 mg/dL (75-99)
--- NOTE | 2019-12-13 21:56 | PN ---
PROGRESS NOTE DATE OF SERVICE: 12/13/2019 REASON FOR FOLLOWUP: Acute COVID-19 pneumonia. INTERVAL HISTORY: The patient went into respiratory distress last evening. The patient ended up getting intubated. The patient is currently hemodynamically stable, not on any pressor support. FiO2 is currently at 95%. No significant purulent secretion through the ET reported by nursing staff or any diarrhea. PHYSICAL EXAMINATION: Blood pressure 107/69 with a pulse of 62, temperature 98. She is 97% on 95% FiO2. General description is a middle-aged female lying in bed in no distress. RESPIRATORY SYSTEM: Unlabored breathing with decreased breath sounds at the base. No wheeze. HEART: S1, S2. Regular rate and rhythm. ABDOMEN: Soft. No tenderness. LABS: Hemoglobin 9.8, white count 12.3, BUN of 20, creatinine 1.20. LDH of 1285. Ferritin 94.3. CRP of 404.5. DIAGNOSTIC IMPRESSION AND PLAN: Patient with acute respiratory failure, multifactorial, in this patient who did have a component of acute COVID-19 pneumonia. Patient is currently covered with Plaquenil, Zithromax, Solu-Cortef; to continue and monitor clinical course closely. Continue with supportive care. MMODL / IJN: [id number] /
[2019-12-13 22:17] LABS: Glucose,Whole Blood 186 mg/dL (75-99)
[2019-12-13 22:54] LABS: Glucose,Whole Blood 196 mg/dL (75-99)
[2019-12-14 00:10] LABS: Glucose,Whole Blood 261 mg/dL (75-99)
[2019-12-14 00:11] LABS: Glucose,Whole Blood 174 mg/dL (75-99)
[2019-12-14] MEDS: NOREPINEPHRINE 4 MG in SODIUM CHLORIDE 0.9% 250 ML IV SCH ×3 (00:27→23:15)
[2019-12-14] MEDS: PROPOFOL 1,000 MG in EMPTY BAG 1 BAG IV SCH ×11 (00:53→23:00)
[2019-12-14 01:02] LABS: Glucose,Whole Blood 228 mg/dL (75-99)
[2019-12-14 01:02] LABS: Glucose,Whole Blood 218 mg/dL (75-99)
[2019-12-14 02:09] LABS: Glucose,Whole Blood 228 mg/dL (75-99)
[2019-12-14 02:55] LABS: Glucose,Whole Blood 182 mg/dL (75-99)
[2019-12-14] MEDS: fentaNYL (PF) 1,000 MCG in SODIUM CHLORIDE 0.9% 80 ML IV SCH ×2 (03:55→15:10)
[2019-12-14 04:07] LABS: Glucose,Whole Blood 195 mg/dL (75-99)
[2019-12-14 04:18] LABS: Anisocytosis Slight; Basophils % (A) 0 %; Eosinophils % (A) 0 %; HCT 34.7 % (34.0-46.0); HGB 10.3 gm/dL (11.4-16.0); Hypochromasia Marked; Lymphocytes # (A) 0.6 k/uL (1.0-4.8); Lymphocytes % (A) 5 %; MCH 25.1 pg (25.0-35.0); MCHC 29.7 g/dL (31.0-37.0); MCV 84.6 fL (80.0-100.0); Mean Platelet Volume 8.6; Monocytes # (A) 0.6 k/uL (0-1.0); Monocytes % (A) 4 %; Neutrophils # (A) 12.5 k/uL (1.3-7.7); Neutrophils % (A) 90 %; Platelet Count 269 k/uL (150-450); Poikilocytosis Slight; RBC 4.11 m/uL (3.80-5.40); RDW 16.1 % (11.5-15.5); WBC 13.9 k/uL (3.8-10.6)
[2019-12-14 04:33] LABS: Albumin 2.8 g/dL (3.5-5.0); Calcium 9.1 mg/dL (8.4-10.2); Potassium 4.4 mmol/L (3.5-5.1); Total Bilirubin 0.7 mg/dL (0.2-1.3); Total Protein 5.6 g/dL (6.3-8.2)
[2019-12-14 04:52] LABS: C Reactive Protein 265.3 mg/L (<10.0)
[2019-12-14] MEDS: INSULIN REGULAR 100 UNIT in SODIUM CHLORIDE 0.9% 100 ML IV SCH ×2 (05:58→22:19)
[2019-12-14 06:04] LABS: Glucose,Whole Blood 177 mg/dL (75-99)
[2019-12-14 07:09] LABS: Glucose,Whole Blood 165 mg/dL (75-99)
--- NOTE | 2019-12-14 07:23 | XR ---
EXAMINATION TYPE: XR chest 1V portable DATE OF EXAM: 12/14/2019 COMPARISON: 12/13/2019 HISTORY: SOB, Follow Up FINDINGS: Indwelling tubes and catheters are unchanged. Diffuse bilateral airspace infiltrates persist without significant interval change. Stable appearance of the cardio-mediastinal structures at this time. Pleural effusion unchanged. IMPRESSION: 1. Stable portable chest. Clinical correlation and follow up until resolution is recommended.
[2019-12-14 08:03] LABS: Glucose,Whole Blood 167 mg/dL (75-99)
[2019-12-14 08:12] LABS: ABG Base Excess -7.3 mmol/L; ABG HCO3 19 mmol/L (21-25); ABG PCO2 37 mmHg (35-45); ABG PH 7.32 (7.35-7.45); ABG PO2 143 mmHg (83-108); ABG TCO2 20 mmol/L (19-24)
[2019-12-14 08:13] LABS: Allen Test Performed? no
[2019-12-14] MEDS: DILTIAZEM ORAL 60 MG TAB PO SCH ×2 (08:49→15:43)
[2019-12-14] MEDS ORDERED: FUROSEMIDE 10 MG/ML 4 ML VIAL IV STA ×2 (08:57→22:30)
[2019-12-14] MEDS: FUROSEMIDE 20 MG TAB PO SCH (09:00)
[2019-12-14] MEDS: HYDROCORTISONE SUCCINATE 100 MG/2 ML VIAL IV SCH ×3 (09:12→23:41)
[2019-12-14] MEDS: AZITHROMYCIN 500 MG in SODIUM CHLORIDE 0.9% 250 ML IVPB SCH (09:12)
[2019-12-14] MEDS: HYDROXYCHLOROQUINE ORAL SUSP 200 MG/8 ML ORAL.SYRG PO SCH ×2 (09:13→20:10)
[2019-12-14] MEDS: levETIRAcetam ORAL SOLN 500 MG/5 ML CUP PO SCH ×2 (09:13→20:10)
[2019-12-14] MEDS: CHLORHEXIDINE GLUCONATE 15 ML CUP MUCOUS MEM SCH ×2 (09:13→20:10)
[2019-12-14] MEDS: PANTOPRAZOLE 40 MG/10 ML VIAL IVP SCH (09:14)
[2019-12-14 10:54] LABS: Glucose,Whole Blood 198 mg/dL (75-99)
[2019-12-14 10:54] LABS: Glucose,Whole Blood 188 mg/dL (75-99)
[2019-12-14] MEDS ORDERED: TOCILIZUMAB 400 MG in SODIUM CHLORIDE 0.9% 80 ML IV ONE (11:00)
[2019-12-14 11:10] LABS: Ferritin 285.9 ng/mL (10.0-291.0)
[2019-12-14 12:16] LABS: Glucose,Whole Blood 186 mg/dL (75-99)
[2019-12-14] MEDS: SODIUM CHLORIDE 0.9% 1,000 ML IV SCH (13:03)
--- NOTE | 2019-12-14 13:06 | P.PN ---
Subjective Progress Note Date: 12/14/19 Principal diagnosis: Acute hypoxic respiratory failure secondary to pneumonia. This is a 59-year-old female with history of multiple medical problems including myasthenia gravis, type 2 diabetes, hypertension, GERD without esophagitis, patient is chronically on prednisone for underlying myasthenia gravis. Patient presented to the ER with 1 day history of increased shortness of breath, fever and cough. She was recently exposed to coworkers with proven positive covid 19 infection. Patient had no symptoms of nausea or vomiting, no abdominal pain, no diarrhea, no loss of sensation of smell or taste. In the ER the patient was noted to have a temp of 103. She was tachycardic and the relatively hypoxic. She was placed on a nonrebreather mask, transition to a high flow nasal cannula re-transitioned again to a non-rebreather mask, and she was admitted to the intensive care unit overnight. Patient clearly had significant elevated markers for covid 19 pneumonitis including significantly abnormal chest x-ray showing bilateral interstitial infiltrates. Her LDH was elevated. Her influenza screen was negative. And again her chest x-ray showed multifocal infiltrates. Patient was empirically placed on Actonel Rocephin and Zithromax, and shortly after I saw the patient, check ABG on the patient and clearly showed worsening hypoxic and hypercapnic respiratory failure. Patient was intubated and placed on mechanical ventilation. Patient also required propofol, fentanyl, and small dose of norepinephrine at 0.03 mcg/kg/m. Present ventilatory settings are assist control rate of 24 volume is 450 FiO2 is 100% and PEEP is 16. Peak airway pressure is 35, plateau pressure is 30. Patient was chronically on prednisone and this was switched to Cortef at 50 mg IV push every 8 hours. Reevaluated today on 12/14/19, patient remains on mechanical ventilation. Her ventilatory settings are assist control rate of 24 tidal volume of 400 FiO2 90% I cut it down to 70%, and PEEP is 16. Peak airway pressure is 35 plateau pressure is 33. Patient is positive for covid 19 pneumonitis. She is still requiring a small dose of norepinephrine at 0.02 mcg/kg/m, she is on propofol drip at 75 mcg/kg/m, she is also on fentanyl at 1 mcg/kg/m. Patient is also on insulin at 3 units per hour. Chest x-ray continues to show diffuse interstitial infiltrates. Patient was given a dose of Lasix at 40 mg IV push 1, and I cut down her IV fluid to 50 mL per hour. FiO2 was decreased down to 70%. Labs showed a pO2 of 143 pCO2 of 37 pH of 7.32. WBC count is 13.9 hemoglobin is 10.3 . D-dimer is 0.54. C-reactive protein is down to 265 from 404. Liver enzymes are elevated compared to yesterday. And ferritin level is 285 compared to 94 the day before. Pro-calcitonin is 5.52. Chest x-ray is worse compared to the chest x-ray on admission. Objective - Vital Signs Vital signs: Vital Signs Temp 97.7 F 12/14/19 12:00 Pulse 73 12/14/19 12:00 Resp 24 12/14/19 12:00 BP 92/59 12/14/19 12:00 Pulse Ox 93 L 12/14/19 12:00 Intake & Output 12/13/19 12/14/19 12/14/19 18:59 06:59 18:59 Intake Total 6606.188 5917.123 1149.177 Output Total 435 435 325 Balance 0937.694 8515.123 824.177 Weight 125.5 kg 125.5 kg Intake: IV 1277 1014 740 Azithromycin 500 mg In 250 Sodium Chloride 0.9% 250 ml @ 250 mls/hr IVPB DAILY [facility] Rx#:[id number] Azithromycin 500 mg In 250 Sodium Chloride 0.9% 250 ml @ 250 mls/hr IVPB DAILY [facility] Rx#:[id number] Pressure Bag 27 39 15 Sodium Chloride 0.9% 1, 900 975 275 000 ml @ 50 mls/hr IV . Q20H [facility] Rx#:[id number] Tocilizumab 400 mg In 100 Sodium Chloride 0.9% 80 ml @ 100 mls/hr IV ONCE ONE Rx#:[id number] cefTRIAXone 1 gm In 100 Sodium Chloride 0.9% 50 ml @ 100 mls/hr IVPB ONCE [facility] Rx#:[id number] cefTRIAXone 1 gm In 100 Sodium Chloride 0.9% 50 ml @ 100 mls/hr IVPB Q24HR [facility] Rx#:[id number] Intake, IV Titration 563.220 815.123 274.177 Amount Insulin Regular 100 unit 59.001 86.272 21.277 In Sodium Chloride 0.9% 100 ml @ Per Protocol IV .Q0M [facility] Rx#:[id number] Norepinephrine 4 mg In 259.701 216.502 35.808 Sodium Chloride 0.9% 250 ml @ 0.05 MCG/KG/MIN 15. 986 mls/hr IV .[id number] [facility] Rx#:[id number] Propofol 1,000 mg In 166.071 436.699 217.092 Empty Bag 1 bag @ Titrate IV .Q0M [facility] Rx#: [id number] fentaNYL (PF) 1,000 mcg 78.447 75.65 In Sodium Chloride 0.9% 80 ml @ 1 MCG/KG/HR 8.39 mls/hr IV .[id number] [facility] Rx #:[id number] Tube Feeding 59 169 75 Other 40 90 60 Output: Urine 435 435 325 Other: Voiding Method Indwelling Catheter Indwelling Catheter Indwelling Catheter ABP, PAP, CO, CI - Last Documented Arterial Blood Pressure 93/65 - Exam Physical Exam: Revealed a 59-year-old female on mechanical ventilation, sedated on propofol and fentanyl. Head: Cushingoid, no neck masses, endotracheal tube and orogastric tube is intact. HEENT:[Neck is supple.] PERRLA, EOMI, no icterus, no JVD. Chest: [Diminished breath sounds and crackles at the bases. Rhonchi also noted bilaterally] Cardiac Exam: [Normal S1 and S2, no S3 gallop, no murmur.] Abdomen: [Obese, Soft, nontender, no megaly, no rebound, no guarding, normal bowel sounds.] Extremities: [No clubbing, no edema, no cyanosis.] Neurological Exam: Cannot be assessed, patient is sedated and on mechanical ventilation on propofol and fentanyl. Psychiatric: Could not be assessed. Skin: No rashes. Musculoskeletal: No deformities. - Labs CBC & Chem 7: 12/14/19 04:10 12/14/19 04:10 Labs: Abnormal Lab Results - Last 24 Hours (Table) 12/13/19 12/13/19 12/13/19 Range/Units 13:08 13:35 13:53 WBC (3.8-10.6) k/uL Hgb (11.4-16.0) gm/dL MCHC (31.0-37.0) g/dL RDW (11.5-15.5) % Neutrophils # (1.3-7.7) k/uL Lymphocytes # (1.0-4.8) k/uL D-Dimer (<0.60) mg/L FEU ABG pH 7.28 L (7.35-7.45) ABG pCO2 47 H (35-45) mmHg ABG pO2 (83-108) mmHg ABG HCO3 (21-25) mmol/L ABG O2 Saturation (94-97) % Chloride (98-107) mmol/L Carbon Dioxide (22-30) mmol/L BUN (7-17) mg/dL Creatinine (0.52-1.04) mg/dL Glucose (74-99) mg/dL POC Glucose (mg/dL) 294 H 293 H (75-99) mg/dL AST (14-36) U/L ALT (4-34) U/L Alkaline Phosphatase (38-126) U/L Lactate Dehydrogenase (313-618) U/L Creatine Kinase (30-135) U/L C-Reactive Protein (<10.0) mg/L Total Protein (6.3-8.2) g/dL Albumin (3.5-5.0) g/dL 12/13/19 12/13/19 12/13/19 Range/Units 14:49 15:53 16:30 WBC (3.8-10.6) k/uL Hgb (11.4-16.0) gm/dL MCHC (31.0-37.0) g/dL RDW (11.5-15.5) % Neutrophils # (1.3-7.7) k/uL Lymphocytes # (1.0-4.8) k/uL D-Dimer 0.63 H (<0.60) mg/L FEU ABG pH (7.35-7.45) ABG pCO2 (35-45) mmHg ABG pO2 (83-108) mmHg ABG HCO3 (21-25) mmol/L ABG O2 Saturation (94-97) % Chloride (98-107) mmol/L Carbon Dioxide (22-30) mmol/L BUN (7-17) mg/dL Creatinine (0.52-1.04) mg/dL Glucose (74-99) mg/dL POC Glucose (mg/dL) 207 H 202 H (75-99) mg/dL AST (14-36) U/L ALT (4-34) U/L Alkaline Phosphatase (38-126) U/L Lactate Dehydrogenase (313-618) U/L Creatine Kinase (30-135) U/L C-Reactive Protein (<10.0) mg/L Total Protein (6.3-8.2) g/dL Albumin (3.5-5.0) g/dL 12/13/19 12/13/19 12/13/19 Range/Units 16:49 18:04 18:57 WBC (3.8-10.6) k/uL Hgb (11.4-16.0) gm/dL MCHC (31.0-37.0) g/dL RDW (11.5-15.5) % Neutrophils # (1.3-7.7) k/uL Lymphocytes # (1.0-4.8) k/uL D-Dimer (<0.60) mg/L FEU ABG pH (7.35-7.45) ABG pCO2 (35-45) mmHg ABG pO2 (83-108) mmHg ABG HCO3 (21-25) mmol/L ABG O2 Saturation (94-97) % Chloride (98-107) mmol/L Carbon Dioxide (22-30) mmol/L BUN (7-17) mg/dL Creatinine (0.52-1.04) mg/dL Glucose (74-99) mg/dL POC Glucose (mg/dL) 227 H 231 H 241 H (75-99) mg/dL AST (14-36) U/L ALT (4-34) U/L Alkaline Phosphatase (38-126) U/L Lactate Dehydrogenase (313-618) U/L Creatine Kinase (30-135) U/L C-Reactive Protein (<10.0) mg/L Total Protein (6.3-8.2) g/dL Albumin (3.5-5.0) g/dL 12/13/19 12/13/19 12/13/19 Range/Units 19:55 21:22 22:15 WBC (3.8-10.6) k/uL Hgb (11.4-16.0) gm/dL MCHC (31.0-37.0) g/dL RDW (11.5-15.5) % Neutrophils # (1.3-7.7) k/uL Lymphocytes # (1.0-4.8) k/uL D-Dimer (<0.60) mg/L FEU ABG pH (7.35-7.45) ABG pCO2 (35-45) mmHg ABG pO2 (83-108) mmHg ABG HCO3 (21-25) mmol/L ABG O2 Saturation (94-97) % Chloride (98-107) mmol/L Carbon Dioxide (22-30) mmol/L BUN (7-17) mg/dL Creatinine (0.52-1.04) mg/dL Glucose (74-99) mg/dL POC Glucose (mg/dL) 203 H 168 H 186 H (75-99) mg/dL AST (14-36) U/L ALT (4-34) U/L Alkaline Phosphatase (38-126) U/L Lactate Dehydrogenase (313-618) U/L Creatine Kinase (30-135) U/L C-Reactive Protein (<10.0) mg/L Total Protein (6.3-8.2) g/dL Albumin (3.5-5.0) g/dL 12/13/19 12/14/19 12/14/19 Range/Units 22:52 00:08 00:10 WBC (3.8-10.6) k/uL Hgb (11.4-16.0) gm/dL MCHC (31.0-37.0) g/dL RDW (11.5-15.5) % Neutrophils # (1.3-7.7) k/uL Lymphocytes # (1.0-4.8) k/uL D-Dimer (<0.60) mg/L FEU ABG pH (7.35-7.45) ABG pCO2 (35-45) mmHg ABG pO2 (83-108) mmHg ABG HCO3 (21-25) mmol/L ABG O2 Saturation (94-97) % Chloride (98-107) mmol/L Carbon Dioxide (22-30) mmol/L BUN (7-17) mg/dL Creatinine (0.52-1.04) mg/dL Glucose (74-99) mg/dL POC Glucose (mg/dL) 196 H 261 H 174 H (75-99) mg/dL AST (14-36) U/L ALT (4-34) U/L Alkaline Phosphatase (38-126) U/L Lactate Dehydrogenase (313-618) U/L Creatine Kinase (30-135) U/L C-Reactive Protein (<10.0) mg/L Total Protein (6.3-8.2) g/dL Albumin (3.5-5.0) g/dL 12/14/19 12/14/19 12/14/19 Range/Units 00:59 01:00 02:07 WBC (3.8-10.6) k/uL Hgb (11.4-16.0) gm/dL MCHC (31.0-37.0) g/dL RDW (11.5-15.5) % Neutrophils # (1.3-7.7) k/uL Lymphocytes # (1.0-4.8) k/uL D-Dimer (<0.60) mg/L FEU ABG pH (7.35-7.45) ABG pCO2 (35-45) mmHg ABG pO2 (83-108) mmHg ABG HCO3 (21-25) mmol/L ABG O2 Saturation (94-97) % Chloride (98-107) mmol/L Carbon Dioxide (22-30) mmol/L BUN (7-17) mg/dL Creatinine (0.52-1.04) mg/dL Glucose (74-99) mg/dL POC Glucose (mg/dL) 228 H 218 H 228 H (75-99) mg/dL AST (14-36) U/L ALT (4-34) U/L Alkaline Phosphatase (38-126) U/L Lactate Dehydrogenase (313-618) U/L Creatine Kinase (30-135) U/L C-Reactive Protein (<10.0) mg/L Total Protein (6.3-8.2) g/dL Albumin (3.5-5.0) g/dL 12/14/19 12/14/19 12/14/19 Range/Units 02:53 04:05 04:10 WBC (3.8-10.6) k/uL Hgb (11.4-16.0) gm/dL MCHC (31.0-37.0) g/dL RDW (11.5-15.5) % Neutrophils # (1.3-7.7) k/uL Lymphocytes # (1.0-4.8) k/uL D-Dimer (<0.60) mg/L FEU ABG pH (7.35-7.45) ABG pCO2 (35-45) mmHg ABG pO2 (83-108) mmHg ABG HCO3 (21-25) mmol/L ABG O2 Saturation (94-97) % Chloride 111 H (98-107) mmol/L Carbon Dioxide 20 L (22-30) mmol/L BUN 29 H (7-17) mg/dL Creatinine 1.72 H (0.52-1.04) mg/dL Glucose 184 H (74-99) mg/dL POC Glucose (mg/dL) 182 H 195 H (75-99) mg/dL AST 272 H (14-36) U/L ALT 251 H (4-34) U/L Alkaline Phosphatase 213 H (38-126) U/L Lactate Dehydrogenase 2055 H (313-618) U/L Creatine Kinase 147 H (30-135) U/L C-Reactive Protein 265.3 H (<10.0) mg/L Total Protein 5.6 L (6.3-8.2) g/dL Albumin 2.8 L (3.5-5.0) g/dL 12/14/19 12/14/19 12/14/19 Range/Units 04:10 06:03 07:08 WBC 13.9 H (3.8-10.6) k/uL Hgb 10.3 L (11.4-16.0) gm/dL MCHC 29.7 L (31.0-37.0) g/dL RDW 16.1 H (11.5-15.5) % Neutrophils # 12.5 H (1.3-7.7) k/uL Lymphocytes # 0.6 L (1.0-4.8) k/uL D-Dimer (<0.60) mg/L FEU ABG pH (7.35-7.45) ABG pCO2 (35-45) mmHg ABG pO2 (83-108) mmHg ABG HCO3 (21-25) mmol/L ABG O2 Saturation (94-97) % Chloride (98-107) mmol/L Carbon Dioxide (22-30) mmol/L BUN (7-17) mg/dL Creatinine (0.52-1.04) mg/dL Glucose (74-99) mg/dL POC Glucose (mg/dL) 177 H 165 H (75-99) mg/dL AST (14-36) U/L ALT (4-34) U/L Alkaline Phosphatase (38-126) U/L Lactate Dehydrogenase (313-618) U/L Creatine Kinase (30-135) U/L C-Reactive Protein (<10.0) mg/L Total Protein (6.3-8.2) g/dL Albumin (3.5-5.0) g/dL 12/14/19 12/14/19 12/14/19 Range/Units 08:01 08:09 09:52 WBC (3.8-10.6) k/uL Hgb (11.4-16.0) gm/dL MCHC (31.0-37.0) g/dL RDW (11.5-15.5) % Neutrophils # (1.3-7.7) k/uL Lymphocytes # (1.0-4.8) k/uL D-Dimer (<0.60) mg/L FEU ABG pH 7.32 L (7.35-7.45) ABG pCO2 (35-45) mmHg ABG pO2 143 H (83-108) mmHg ABG HCO3 19 L (21-25) mmol/L ABG O2 Saturation 99.0 H (94-97) % Chloride (98-107) mmol/L Carbon Dioxide (22-30) mmol/L BUN (7-17) mg/dL Creatinine (0.52-1.04) mg/dL Glucose (74-99) mg/dL POC Glucose (mg/dL) 167 H 188 H (75-99) mg/dL AST (14-36) U/L ALT (4-34) U/L Alkaline Phosphatase (38-126) U/L Lactate Dehydrogenase (313-618) U/L Creatine Kinase (30-135) U/L C-Reactive Protein (<10.0) mg/L Total Protein (6.3-8.2) g/dL Albumin (3.5-5.0) g/dL 12/14/19 12/14/19 Range/Units 10:44 11:56 WBC (3.8-10.6) k/uL Hgb (11.4-16.0) gm/dL MCHC (31.0-37.0) g/dL RDW (11.5-15.5) % Neutrophils # (1.3-7.7) k/uL Lymphocytes # (1.0-4.8) k/uL D-Dimer (<0.60) mg/L FEU ABG pH (7.35-7.45) ABG pCO2 (35-45) mmHg ABG pO2 (83-108) mmHg ABG HCO3 (21-25) mmol/L ABG O2 Saturation (94-97) % Chloride (98-107) mmol/L Carbon Dioxide (22-30) mmol/L BUN (7-17) mg/dL Creatinine (0.52-1.04) mg/dL Glucose (74-99) mg/dL POC Glucose (mg/dL) 198 H 186 H (75-99) mg/dL AST (14-36) U/L ALT (4-34) U/L Alkaline Phosphatase (38-126) U/L Lactate Dehydrogenase (313-618) U/L Creatine Kinase (30-135) U/L C-Reactive Protein (<10.0) mg/L Total Protein (6.3-8.2) g/dL Albumin (3.5-5.0) g/dL Microbiology - Last 24 Hours (Table) 12/12/19 12:40 Urine Culture - Final Urine,Voided 12/12/19 11:45 Blood Culture - Preliminary Blood No Growth after 24 hours Assessment and Plan Assessment: Impression: Acute hypoxic and hypercapnic respiratory failure secondary to pneumonitis,covid 19 pneumonitis, Underlying bacterial pneumonia is not entirely ruled out. Especially with elevated pro calcitonin of 5.52. History of myasthenia gravis, in remission however could be contributing to worsening hypercapnic respiratory failure. Acute sepsis and septic shock secondary to pneumonia Type 2 diabetes. Morbid obesity. Recommendation: Continue ventilatory support. Continue nutritional support. Start enteral feeding. Continue Insulin drip for elevated blood sugar. GI and DVT prophylaxis. Continue ceftriaxone, Zithromax, hydroxychloroquine, Continue Solu-Cortef at 50 mg IV push every 8 hours. Patient is normally on prednisone at 15 mg daily maintenance for her myasthenia gravis. Patient was given Lasix 40 mg IV push 1. Decreased IV fluid to 50 mL per hour. Cut down her FiO2 to 70% and kept her on a PEEP of 16. Patient is obviously critically ill, Critical care time is 34 minutes Time with Patient: Greater than 30
[2019-12-14 14:26] LABS: Glucose,Whole Blood 158 mg/dL (75-99)
[2019-12-14 15:55] LABS: Glucose,Whole Blood 192 mg/dL (75-99)
--- NOTE | 2019-12-14 16:35 | P.PN ---
Subjective Progress Note Date: 12/14/19 Patient still intubated. According to the nursing report, patient's myasthenia symptoms had been stable. She was not complaining of double vision, or ptosis. At present patient is on propofol 75 g and 1.0 fentanyl for sedation. Her lungs have been stable. According to the nurse report, her saturation has improved, and she has been requiring less oxygen from 100% down to 60%. She is off Levophed. Patient has been receiving hydroxychloroquine, and also received Tocilizumab 400 mg for COVID infection today. Objective - Vital Signs Vital signs: Vital Signs Temp 98.4 F 12/14/19 16:00 Pulse 65 12/14/19 16:00 Resp 24 12/14/19 16:00 BP 113/69 12/14/19 16:00 Pulse Ox 95 12/14/19 16:00 Intake & Output 12/13/19 12/14/19 12/14/19 18:59 06:59 18:59 Intake Total 8957.050 3257.123 1598.402 Output Total 435 435 895 Balance 9300.272 8802.123 703.402 Weight 125.5 kg 125.5 kg Intake: IV 1277 1014 902 Azithromycin 500 mg In 250 Sodium Chloride 0.9% 250 ml @ 250 mls/hr IVPB DAILY [facility] Rx#:[id number] Azithromycin 500 mg In 250 Sodium Chloride 0.9% 250 ml @ 250 mls/hr IVPB DAILY [facility] Rx#:[id number] Pressure Bag 27 39 27 Sodium Chloride 0.9% 1, 900 975 425 000 ml @ 50 mls/hr IV . Q20H [facility] Rx#:[id number] Tocilizumab 400 mg In 100 Sodium Chloride 0.9% 80 ml @ 100 mls/hr IV ONCE ONE Rx#:[id number] cefTRIAXone 1 gm In 100 Sodium Chloride 0.9% 50 ml @ 100 mls/hr IVPB ONCE [facility] Rx#:[id number] cefTRIAXone 1 gm In 100 Sodium Chloride 0.9% 50 ml @ 100 mls/hr IVPB Q24HR [facility] Rx#:[id number] Intake, IV Titration 563.220 815.123 439.402 Amount Insulin Regular 100 unit 59.001 86.272 42.403 In Sodium Chloride 0.9% 100 ml @ Per Protocol IV .Q0M [facility] Rx#:[id number] Norepinephrine 4 mg In 259.701 216.502 35.808 Sodium Chloride 0.9% 250 ml @ 0.05 MCG/KG/MIN 15. 986 mls/hr IV .[id number] [facility] Rx#:[id number] Propofol 1,000 mg In 166.071 436.699 266.803 Empty Bag 1 bag @ Titrate IV .Q0M [facility] Rx#: [id number] fentaNYL (PF) 1,000 mcg 78.447 75.65 94.388 In Sodium Chloride 0.9% 80 ml @ 1 MCG/KG/HR 8.39 mls/hr IV .[id number] [facility] Rx #:[id number] Tube Feeding 59 169 167 Other 40 90 90 Output: Urine 435 435 895 Other: Voiding Method Indwelling Catheter Indwelling Catheter Indwelling Catheter ABP, PAP, CO, CI - Last Documented Arterial Blood Pressure 108/66 - Exam Patient on mechanical ventilation, sedated. - Labs CBC & Chem 7: 12/14/19 04:10 12/14/19 04:10 Labs: Abnormal Lab Results - Last 24 Hours (Table) 12/13/19 12/13/19 12/13/19 Range/Units 16:30 16:49 18:04 WBC (3.8-10.6) k/uL Hgb (11.4-16.0) gm/dL MCHC (31.0-37.0) g/dL RDW (11.5-15.5) % Neutrophils # (1.3-7.7) k/uL Lymphocytes # (1.0-4.8) k/uL D-Dimer 0.63 H (<0.60) mg/L FEU ABG pH (7.35-7.45) ABG pO2 (83-108) mmHg ABG HCO3 (21-25) mmol/L ABG O2 Saturation (94-97) % Chloride (98-107) mmol/L Carbon Dioxide (22-30) mmol/L BUN (7-17) mg/dL Creatinine (0.52-1.04) mg/dL Glucose (74-99) mg/dL POC Glucose (mg/dL) 227 H 231 H (75-99) mg/dL AST (14-36) U/L ALT (4-34) U/L Alkaline Phosphatase (38-126) U/L Lactate Dehydrogenase (313-618) U/L Creatine Kinase (30-135) U/L C-Reactive Protein (<10.0) mg/L Total Protein (6.3-8.2) g/dL Albumin (3.5-5.0) g/dL 12/13/19 12/13/19 12/13/19 Range/Units 18:57 19:55 21:22 WBC (3.8-10.6) k/uL Hgb (11.4-16.0) gm/dL MCHC (31.0-37.0) g/dL RDW (11.5-15.5) % Neutrophils # (1.3-7.7) k/uL Lymphocytes # (1.0-4.8) k/uL D-Dimer (<0.60) mg/L FEU ABG pH (7.35-7.45) ABG pO2 (83-108) mmHg ABG HCO3 (21-25) mmol/L ABG O2 Saturation (94-97) % Chloride (98-107) mmol/L Carbon Dioxide (22-30) mmol/L BUN (7-17) mg/dL Creatinine (0.52-1.04) mg/dL Glucose (74-99) mg/dL POC Glucose (mg/dL) 241 H 203 H 168 H (75-99) mg/dL AST (14-36) U/L ALT (4-34) U/L Alkaline Phosphatase (38-126) U/L Lactate Dehydrogenase (313-618) U/L Creatine Kinase (30-135) U/L C-Reactive Protein (<10.0) mg/L Total Protein (6.3-8.2) g/dL Albumin (3.5-5.0) g/dL 12/13/19 12/13/19 12/14/19 Range/Units 22:15 22:52 00:08 WBC (3.8-10.6) k/uL Hgb (11.4-16.0) gm/dL MCHC (31.0-37.0) g/dL RDW (11.5-15.5) % Neutrophils # (1.3-7.7) k/uL Lymphocytes # (1.0-4.8) k/uL D-Dimer (<0.60) mg/L FEU ABG pH (7.35-7.45) ABG pO2 (83-108) mmHg ABG HCO3 (21-25) mmol/L ABG O2 Saturation (94-97) % Chloride (98-107) mmol/L Carbon Dioxide (22-30) mmol/L BUN (7-17) mg/dL Creatinine (0.52-1.04) mg/dL Glucose (74-99) mg/dL POC Glucose (mg/dL) 186 H 196 H 261 H (75-99) mg/dL AST (14-36) U/L ALT (4-34) U/L Alkaline Phosphatase (38-126) U/L Lactate Dehydrogenase (313-618) U/L Creatine Kinase (30-135) U/L C-Reactive Protein (<10.0) mg/L Total Protein (6.3-8.2) g/dL Albumin (3.5-5.0) g/dL 12/14/19 12/14/19 12/14/19 Range/Units 00:10 00:59 01:00 WBC (3.8-10.6) k/uL Hgb (11.4-16.0) gm/dL MCHC (31.0-37.0) g/dL RDW (11.5-15.5) % Neutrophils # (1.3-7.7) k/uL Lymphocytes # (1.0-4.8) k/uL D-Dimer (<0.60) mg/L FEU ABG pH (7.35-7.45) ABG pO2 (83-108) mmHg ABG HCO3 (21-25) mmol/L ABG O2 Saturation (94-97) % Chloride (98-107) mmol/L Carbon Dioxide (22-30) mmol/L BUN (7-17) mg/dL Creatinine (0.52-1.04) mg/dL Glucose (74-99) mg/dL POC Glucose (mg/dL) 174 H 228 H 218 H (75-99) mg/dL AST (14-36) U/L ALT (4-34) U/L Alkaline Phosphatase (38-126) U/L Lactate Dehydrogenase (313-618) U/L Creatine Kinase (30-135) U/L C-Reactive Protein (<10.0) mg/L Total Protein (6.3-8.2) g/dL Albumin (3.5-5.0) g/dL 12/14/19 12/14/19 12/14/19 Range/Units 02:07 02:53 04:05 WBC (3.8-10.6) k/uL Hgb (11.4-16.0) gm/dL MCHC (31.0-37.0) g/dL RDW (11.5-15.5) % Neutrophils # (1.3-7.7) k/uL Lymphocytes # (1.0-4.8) k/uL D-Dimer (<0.60) mg/L FEU ABG pH (7.35-7.45) ABG pO2 (83-108) mmHg ABG HCO3 (21-25) mmol/L ABG O2 Saturation (94-97) % Chloride (98-107) mmol/L Carbon Dioxide (22-30) mmol/L BUN (7-17) mg/dL Creatinine (0.52-1.04) mg/dL Glucose (74-99) mg/dL POC Glucose (mg/dL) 228 H 182 H 195 H (75-99) mg/dL AST (14-36) U/L ALT (4-34) U/L Alkaline Phosphatase (38-126) U/L Lactate Dehydrogenase (313-618) U/L Creatine Kinase (30-135) U/L C-Reactive Protein (<10.0) mg/L Total Protein (6.3-8.2) g/dL Albumin (3.5-5.0) g/dL 12/14/19 12/14/19 12/14/19 Range/Units 04:10 04:10 06:03 WBC 13.9 H (3.8-10.6) k/uL Hgb 10.3 L (11.4-16.0) gm/dL MCHC 29.7 L (31.0-37.0) g/dL RDW 16.1 H (11.5-15.5) % Neutrophils # 12.5 H (1.3-7.7) k/uL Lymphocytes # 0.6 L (1.0-4.8) k/uL D-Dimer (<0.60) mg/L FEU ABG pH (7.35-7.45) ABG pO2 (83-108) mmHg ABG HCO3 (21-25) mmol/L ABG O2 Saturation (94-97) % Chloride 111 H (98-107) mmol/L Carbon Dioxide 20 L (22-30) mmol/L BUN 29 H (7-17) mg/dL Creatinine 1.72 H (0.52-1.04) mg/dL Glucose 184 H (74-99) mg/dL POC Glucose (mg/dL) 177 H (75-99) mg/dL AST 272 H (14-36) U/L ALT 251 H (4-34) U/L Alkaline Phosphatase 213 H (38-126) U/L Lactate Dehydrogenase 2055 H (313-618) U/L Creatine Kinase 147 H (30-135) U/L C-Reactive Protein 265.3 H (<10.0) mg/L Total Protein 5.6 L (6.3-8.2) g/dL Albumin 2.8 L (3.5-5.0) g/dL 12/14/19 12/14/19 12/14/19 Range/Units 07:08 08:01 08:09 WBC (3.8-10.6) k/uL Hgb (11.4-16.0) gm/dL MCHC (31.0-37.0) g/dL RDW (11.5-15.5) % Neutrophils # (1.3-7.7) k/uL Lymphocytes # (1.0-4.8) k/uL D-Dimer (<0.60) mg/L FEU ABG pH 7.32 L (7.35-7.45) ABG pO2 143 H (83-108) mmHg ABG HCO3 19 L (21-25) mmol/L ABG O2 Saturation 99.0 H (94-97) % Chloride (98-107) mmol/L Carbon Dioxide (22-30) mmol/L BUN (7-17) mg/dL Creatinine (0.52-1.04) mg/dL Glucose (74-99) mg/dL POC Glucose (mg/dL) 165 H 167 H (75-99) mg/dL AST (14-36) U/L ALT (4-34) U/L Alkaline Phosphatase (38-126) U/L Lactate Dehydrogenase (313-618) U/L Creatine Kinase (30-135) U/L C-Reactive Protein (<10.0) mg/L Total Protein (6.3-8.2) g/dL Albumin (3.5-5.0) g/dL 12/14/19 12/14/19 12/14/19 Range/Units 09:52 10:44 11:56 WBC (3.8-10.6) k/uL Hgb (11.4-16.0) gm/dL MCHC (31.0-37.0) g/dL RDW (11.5-15.5) % Neutrophils # (1.3-7.7) k/uL Lymphocytes # (1.0-4.8) k/uL D-Dimer (<0.60) mg/L FEU ABG pH (7.35-7.45) ABG pO2 (83-108) mmHg ABG HCO3 (21-25) mmol/L ABG O2 Saturation (94-97) % Chloride (98-107) mmol/L Carbon Dioxide (22-30) mmol/L BUN (7-17) mg/dL Creatinine (0.52-1.04) mg/dL Glucose (74-99) mg/dL POC Glucose (mg/dL) 188 H 198 H 186 H (75-99) mg/dL AST (14-36) U/L ALT (4-34) U/L Alkaline Phosphatase (38-126) U/L Lactate Dehydrogenase (313-618) U/L Creatine Kinase (30-135) U/L C-Reactive Protein (<10.0) mg/L Total Protein (6.3-8.2) g/dL Albumin (3.5-5.0) g/dL 12/14/19 12/14/19 Range/Units 14:09 15:36 WBC (3.8-10.6) k/uL Hgb (11.4-16.0) gm/dL MCHC (31.0-37.0) g/dL RDW (11.5-15.5) % Neutrophils # (1.3-7.7) k/uL Lymphocytes # (1.0-4.8) k/uL D-Dimer (<0.60) mg/L FEU ABG pH (7.35-7.45) ABG pO2 (83-108) mmHg ABG HCO3 (21-25) mmol/L ABG O2 Saturation (94-97) % Chloride (98-107) mmol/L Carbon Dioxide (22-30) mmol/L BUN (7-17) mg/dL Creatinine (0.52-1.04) mg/dL Glucose (74-99) mg/dL POC Glucose (mg/dL) 158 H 192 H (75-99) mg/dL AST (14-36) U/L ALT (4-34) U/L Alkaline Phosphatase (38-126) U/L Lactate Dehydrogenase (313-618) U/L Creatine Kinase (30-135) U/L C-Reactive Protein (<10.0) mg/L Total Protein (6.3-8.2) g/dL Albumin (3.5-5.0) g/dL Microbiology - Last 24 Hours (Table) 12/12/19 11:45 Blood Culture - Preliminary Blood No Growth after 48 hours 12/12/19 12:40 Urine Culture - Final Urine,Voided Assessment and Plan Assessment: * Myasthenia gravis, currently in remission. Patient is status post treatment with IVIG about a month ago for myasthenia gravis exacerbation. * Acute multifocal pneumonia, due to Covid. * Diabetes poorly controlled * Obesity Plan: * Patient's myasthenia gravis is in remission at this time. Examination limited due to patient being sedated. * Treatment of COVID as per ID and critical care. * If she develops any myasthenia gravis exacerbation, we will consider treatment with IVIG. * Your medical management. * Please call neurology, if she develops any symptoms of myasthenia gravis.
--- NOTE | 2019-12-14 16:35 | P.PN ---
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 Influenza screening negative. Tested positive for coronavirus. LDH trending up currently 1285. Maintained on Rocephin, Plaquenil and Zithromax. D-dimer elevated at 0.63. Overnight patient was maintained on a nonrebreather mask. Chest x-ray this morning reporting worsening persistent multifocal patchy and confluent airspace disease, greatest in the right upper and left lower lobes. Dyspnea worsened and patient was intubated this morning. Currentlly on FiO2 of 90%/+16 of PEEP. Maintained on diprovan, fentanyl drip, Levophed. Evaluated by neurology with recommendations noted and appreciated, no IVIG at this time as patient's myasthenia gravis felt to be in remission. Continues on Cortef. Blood sugars elevated, on insulin drip. ABGs noted, acidotic with pH of 7.28, pCO2 47 pO2 87, bicarb 22, total CO2 24, O2 sat 96.9, base excess -4.4 on 100% FiO2. Mild improvement in renal function -Creatinine down to 1.2. 12/14/2019 remains vent dependent. This morning patient required FiO2 90% and PEEP of 16, further weaned to 70%. Received Actemra. FiO2 further weaned to 60%. Chest x-ray reporting diffuse interstitial infiltrates , pleural effusion unchanged, received a dose of Lasix IV push. ABGs noted. Continues on diprovan, fentanyl and Levophed. Renal function worsening, creatinine up to 1.72. Blood sugars currently better controlled, on insulin drip. LDH up to 2054. Ferritin level up to 285.9. Objective - Vital Signs Vital signs: Vital Signs Temp 97.7 F 12/14/19 12:00 Pulse 73 12/14/19 14:30 Resp 73 H 12/14/19 15:00 BP 92/59 12/14/19 15:00 Pulse Ox 73 L 12/14/19 15:00 Intake & Output 12/13/19 12/14/19 12/14/19 18:59 06:59 18:59 Intake Total 5580.873 5826.123 1488.867 Output Total 435 435 795 Balance 3045.863 7329.123 693.867 Weight 125.5 kg 125.5 kg Intake: IV 1277 1014 849 Azithromycin 500 mg In 250 Sodium Chloride 0.9% 250 ml @ 250 mls/hr IVPB DAILY [facility] Rx#:[id number] Azithromycin 500 mg In 250 Sodium Chloride 0.9% 250 ml @ 250 mls/hr IVPB DAILY [facility] Rx#:[id number] Pressure Bag 27 39 24 Sodium Chloride 0.9% 1, 900 975 375 000 ml @ 50 mls/hr IV . Q20H [facility] Rx#:[id number] Tocilizumab 400 mg In 100 Sodium Chloride 0.9% 80 ml @ 100 mls/hr IV ONCE ONE Rx#:[id number] cefTRIAXone 1 gm In 100 Sodium Chloride 0.9% 50 ml @ 100 mls/hr IVPB ONCE [facility] Rx#:[id number] cefTRIAXone 1 gm In 100 Sodium Chloride 0.9% 50 ml @ 100 mls/hr IVPB Q24HR [facility] Rx#:[id number] Intake, IV Titration 563.220 815.123 435.867 Amount Insulin Regular 100 unit 59.001 86.272 38.868 In Sodium Chloride 0.9% 100 ml @ Per Protocol IV .Q0M [facility] Rx#:[id number] Norepinephrine 4 mg In 259.701 216.502 35.808 Sodium Chloride 0.9% 250 ml @ 0.05 MCG/KG/MIN 15. 986 mls/hr IV .[id number] [facility] Rx#:[id number] Propofol 1,000 mg In 166.071 436.699 266.803 Empty Bag 1 bag @ Titrate IV .Q0M [facility] Rx#: [id number] fentaNYL (PF) 1,000 mcg 78.447 75.65 94.388 In Sodium Chloride 0.9% 80 ml @ 1 MCG/KG/HR 8.39 mls/hr IV .[id number] [facility] Rx #:[id number] Tube Feeding 59 169 144 Other 40 90 60 Output: Urine 435 435 795 Other: Voiding Method Indwelling Catheter Indwelling Catheter Indwelling Catheter ABP, PAP, CO, CI - Last Documented Arterial Blood Pressure 86/53 - Exam PHYSICAL EXAM: VITAL SIGNS: As above GENERAL: intubated and sedated, on mechanical ventilation with propofol and fentanyl HEENT: Cushingoid ,Conjunctivae normal. eyes normal. NECK: No JVD. No thyroid enlargement. No LNs CARDIOVASCULAR: S1, S2 regular. No murmur RESPIRATION: Breath sounds diminished. Scattered Rhonchi with bibasilar crackles. ABDOMEN: Soft, obese, nontender . No guarding. no masses palpable. Bowel sounds heard. LEGS: No edema. no swelling, no cyanosis PSYCHIATRY: Unable to assess patient sedated and on mechanical ventilation NERVOUS SYSTEM: Unable to assess patient sedated and on mechanical ventilation Skin: no rash - Labs CBC & Chem 7: 12/14/19 04:10 12/14/19 04:10 Labs: Abnormal Lab Results - Last 24 Hours (Table) 12/13/19 12/13/19 12/13/19 Range/Units 15:53 16:30 16:49 WBC (3.8-10.6) k/uL Hgb (11.4-16.0) gm/dL MCHC (31.0-37.0) g/dL RDW (11.5-15.5) % Neutrophils # (1.3-7.7) k/uL Lymphocytes # (1.0-4.8) k/uL D-Dimer 0.63 H (<0.60) mg/L FEU ABG pH (7.35-7.45) ABG pO2 (83-108) mmHg ABG HCO3 (21-25) mmol/L ABG O2 Saturation (94-97) % Chloride (98-107) mmol/L Carbon Dioxide (22-30) mmol/L BUN (7-17) mg/dL Creatinine (0.52-1.04) mg/dL Glucose (74-99) mg/dL POC Glucose (mg/dL) 202 H 227 H (75-99) mg/dL AST (14-36) U/L ALT (4-34) U/L Alkaline Phosphatase (38-126) U/L Lactate Dehydrogenase (313-618) U/L Creatine Kinase (30-135) U/L C-Reactive Protein (<10.0) mg/L Total Protein (6.3-8.2) g/dL Albumin (3.5-5.0) g/dL 12/13/19 12/13/19 12/13/19 Range/Units 18:04 18:57 19:55 WBC (3.8-10.6) k/uL Hgb (11.4-16.0) gm/dL MCHC (31.0-37.0) g/dL RDW (11.5-15.5) % Neutrophils # (1.3-7.7) k/uL Lymphocytes # (1.0-4.8) k/uL D-Dimer (<0.60) mg/L FEU ABG pH (7.35-7.45) ABG pO2 (83-108) mmHg ABG HCO3 (21-25) mmol/L ABG O2 Saturation (94-97) % Chloride (98-107) mmol/L Carbon Dioxide (22-30) mmol/L BUN (7-17) mg/dL Creatinine (0.52-1.04) mg/dL Glucose (74-99) mg/dL POC Glucose (mg/dL) 231 H 241 H 203 H (75-99) mg/dL AST (14-36) U/L ALT (4-34) U/L Alkaline Phosphatase (38-126) U/L Lactate Dehydrogenase (313-618) U/L Creatine Kinase (30-135) U/L C-Reactive Protein (<10.0) mg/L Total Protein (6.3-8.2) g/dL Albumin (3.5-5.0) g/dL 12/13/19 12/13/19 12/13/19 Range/Units 21:22 22:15 22:52 WBC (3.8-10.6) k/uL Hgb (11.4-16.0) gm/dL MCHC (31.0-37.0) g/dL RDW (11.5-15.5) % Neutrophils # (1.3-7.7) k/uL Lymphocytes # (1.0-4.8) k/uL D-Dimer (<0.60) mg/L FEU ABG pH (7.35-7.45) ABG pO2 (83-108) mmHg ABG HCO3 (21-25) mmol/L ABG O2 Saturation (94-97) % Chloride (98-107) mmol/L Carbon Dioxide (22-30) mmol/L BUN (7-17) mg/dL Creatinine (0.52-1.04) mg/dL Glucose (74-99) mg/dL POC Glucose (mg/dL) 168 H 186 H 196 H (75-99) mg/dL AST (14-36) U/L ALT (4-34) U/L Alkaline Phosphatase (38-126) U/L Lactate Dehydrogenase (313-618) U/L Creatine Kinase (30-135) U/L C-Reactive Protein (<10.0) mg/L Total Protein (6.3-8.2) g/dL Albumin (3.5-5.0) g/dL 12/14/19 12/14/19 12/14/19 Range/Units 00:08 00:10 00:59 WBC (3.8-10.6) k/uL Hgb (11.4-16.0) gm/dL MCHC (31.0-37.0) g/dL RDW (11.5-15.5) % Neutrophils # (1.3-7.7) k/uL Lymphocytes # (1.0-4.8) k/uL D-Dimer (<0.60) mg/L FEU ABG pH (7.35-7.45) ABG pO2 (83-108) mmHg ABG HCO3 (21-25) mmol/L ABG O2 Saturation (94-97) % Chloride (98-107) mmol/L Carbon Dioxide (22-30) mmol/L BUN (7-17) mg/dL Creatinine (0.52-1.04) mg/dL Glucose (74-99) mg/dL POC Glucose (mg/dL) 261 H 174 H 228 H (75-99) mg/dL AST (14-36) U/L ALT (4-34) U/L Alkaline Phosphatase (38-126) U/L Lactate Dehydrogenase (313-618) U/L Creatine Kinase (30-135) U/L C-Reactive Protein (<10.0) mg/L Total Protein (6.3-8.2) g/dL Albumin (3.5-5.0) g/dL 12/14/19 12/14/19 12/14/19 Range/Units 01:00 02:07 02:53 WBC (3.8-10.6) k/uL Hgb (11.4-16.0) gm/dL MCHC (31.0-37.0) g/dL RDW (11.5-15.5) % Neutrophils # (1.3-7.7) k/uL Lymphocytes # (1.0-4.8) k/uL D-Dimer (<0.60) mg/L FEU ABG pH (7.35-7.45) ABG pO2 (83-108) mmHg ABG HCO3 (21-25) mmol/L ABG O2 Saturation (94-97) % Chloride (98-107) mmol/L Carbon Dioxide (22-30) mmol/L BUN (7-17) mg/dL Creatinine (0.52-1.04) mg/dL Glucose (74-99) mg/dL POC Glucose (mg/dL) 218 H 228 H 182 H (75-99) mg/dL AST (14-36) U/L ALT (4-34) U/L Alkaline Phosphatase (38-126) U/L Lactate Dehydrogenase (313-618) U/L Creatine Kinase (30-135) U/L C-Reactive Protein (<10.0) mg/L Total Protein (6.3-8.2) g/dL Albumin (3.5-5.0) g/dL 12/14/19 12/14/19 12/14/19 Range/Units 04:05 04:10 04:10 WBC 13.9 H (3.8-10.6) k/uL Hgb 10.3 L (11.4-16.0) gm/dL MCHC 29.7 L (31.0-37.0) g/dL RDW 16.1 H (11.5-15.5) % Neutrophils # 12.5 H (1.3-7.7) k/uL Lymphocytes # 0.6 L (1.0-4.8) k/uL D-Dimer (<0.60) mg/L FEU ABG pH (7.35-7.45) ABG pO2 (83-108) mmHg ABG HCO3 (21-25) mmol/L ABG O2 Saturation (94-97) % Chloride 111 H (98-107) mmol/L Carbon Dioxide 20 L (22-30) mmol/L BUN 29 H (7-17) mg/dL Creatinine 1.72 H (0.52-1.04) mg/dL Glucose 184 H (74-99) mg/dL POC Glucose (mg/dL) 195 H (75-99) mg/dL AST 272 H (14-36) U/L ALT 251 H (4-34) U/L Alkaline Phosphatase 213 H (38-126) U/L Lactate Dehydrogenase 2055 H (313-618) U/L Creatine Kinase 147 H (30-135) U/L C-Reactive Protein 265.3 H (<10.0) mg/L Total Protein 5.6 L (6.3-8.2) g/dL Albumin 2.8 L (3.5-5.0) g/dL 12/14/19 12/14/19 12/14/19 Range/Units 06:03 07:08 08:01 WBC (3.8-10.6) k/uL Hgb (11.4-16.0) gm/dL MCHC (31.0-37.0) g/dL RDW (11.5-15.5) % Neutrophils # (1.3-7.7) k/uL Lymphocytes # (1.0-4.8) k/uL D-Dimer (<0.60) mg/L FEU ABG pH (7.35-7.45) ABG pO2 (83-108) mmHg ABG HCO3 (21-25) mmol/L ABG O2 Saturation (94-97) % Chloride (98-107) mmol/L Carbon Dioxide (22-30) mmol/L BUN (7-17) mg/dL Creatinine (0.52-1.04) mg/dL Glucose (74-99) mg/dL POC Glucose (mg/dL) 177 H 165 H 167 H (75-99) mg/dL AST (14-36) U/L ALT (4-34) U/L Alkaline Phosphatase (38-126) U/L Lactate Dehydrogenase (313-618) U/L Creatine Kinase (30-135) U/L C-Reactive Protein (<10.0) mg/L Total Protein (6.3-8.2) g/dL Albumin (3.5-5.0) g/dL 12/14/19 12/14/19 12/14/19 Range/Units 08:09 09:52 10:44 WBC (3.8-10.6) k/uL Hgb (11.4-16.0) gm/dL MCHC (31.0-37.0) g/dL RDW (11.5-15.5) % Neutrophils # (1.3-7.7) k/uL Lymphocytes # (1.0-4.8) k/uL D-Dimer (<0.60) mg/L FEU ABG pH 7.32 L (7.35-7.45) ABG pO2 143 H (83-108) mmHg ABG HCO3 19 L (21-25) mmol/L ABG O2 Saturation 99.0 H (94-97) % Chloride (98-107) mmol/L Carbon Dioxide (22-30) mmol/L BUN (7-17) mg/dL Creatinine (0.52-1.04) mg/dL Glucose (74-99) mg/dL POC Glucose (mg/dL) 188 H 198 H (75-99) mg/dL AST (14-36) U/L ALT (4-34) U/L Alkaline Phosphatase (38-126) U/L Lactate Dehydrogenase (313-618) U/L Creatine Kinase (30-135) U/L C-Reactive Protein (<10.0) mg/L Total Protein (6.3-8.2) g/dL Albumin (3.5-5.0) g/dL 12/14/19 12/14/19 Range/Units 11:56 14:09 WBC (3.8-10.6) k/uL Hgb (11.4-16.0) gm/dL MCHC (31.0-37.0) g/dL RDW (11.5-15.5) % Neutrophils # (1.3-7.7) k/uL Lymphocytes # (1.0-4.8) k/uL D-Dimer (<0.60) mg/L FEU ABG pH (7.35-7.45) ABG pO2 (83-108) mmHg ABG HCO3 (21-25) mmol/L ABG O2 Saturation (94-97) % Chloride (98-107) mmol/L Carbon Dioxide (22-30) mmol/L BUN (7-17) mg/dL Creatinine (0.52-1.04) mg/dL Glucose (74-99) mg/dL POC Glucose (mg/dL) 186 H 158 H (75-99) mg/dL AST (14-36) U/L ALT (4-34) U/L Alkaline Phosphatase (38-126) U/L Lactate Dehydrogenase (313-618) U/L Creatine Kinase (30-135) U/L C-Reactive Protein (<10.0) mg/L Total Protein (6.3-8.2) g/dL Albumin (3.5-5.0) g/dL Microbiology - Last 24 Hours (Table) 12/12/19 11:45 Blood Culture - Preliminary Blood No Growth after 48 hours 12/12/19 12:40 Urine Culture - Final Urine,Voided Assessment and Plan Assessment: -Acute COVID-19 multifocal pneumonia -Acute hypoxic and hypercapnic respiratory failure secondary to the above, ventilator dependent -Acute sepsis with septic shock secondary to #1 -Hypotension, pressor dependent secondary to the above -Diabetes mellitus, type II -Myasthenia gravis, currently in remission, intolerant to Mestinon, monthly treatments with IVIG -History of multiple sclerosis -Morbid obesity, BMI 50.6 -Obstructive sleep apnea, on BiPAP -Diabetes mellitus, uncontrolled, hyperglycemic on insulin drip -Gastroesophageal reflux disease -History of hypertension -Osteoarthritis -Anxiety -Former nicotine dependence -Glaucoma -Seizure disorder -Acute on chronic renal failure, stage III, baseline 1.1 -Chronic diastolic CHF Plan: Continue on current medication regime , PPI, monitoring and symptomatic treatment. DC Cardizem, renal function slowly creeping up plus patient requiring low-dose of levophed.Serum Interleukin-6 level pending. Repeat Acte rmra as per ID, tomorrow. Antibiotics as per infectious disease. Prognosis guarded given multiple complex medical issues. The impression and plan of care has been dictated as directed. : I performed a history and examination of this patient, discussed the same with the dictator. I agree with the dictator's note ,documented as a scribe. Any additional findings or plans will be noted.
--- NOTE | 2019-12-14 17:12 | PN ---
PROGRESS NOTE DATE OF SERVICE: 12/14/2019 REASON FOR FOLLOWUP: Acute COVID-19 pneumonia. INTERVAL HISTORY: The patient is currently afebrile. The patient is hemodynamically stable. FiO2 is cut down to 60%. No significant purulent secretion through the ET and no diarrhea has been reported. PHYSICAL EXAMINATION: Blood pressure 130/66, pulse of 55, temperature 98.4, she is 95% on 50% FiO2. General description is a middle-aged female, lying in bed in no distress. RESPIRATORY SYSTEM: Unlabored breathing, decreased breath sounds at the base, no wheeze. HEART: S1, S2. Regular rate and rhythm. ABDOMEN: Soft, no tenderness. LABS: Hemoglobin is 10.8, white count of 13.9, BUN of 29, creatinine 1.72. Liver enzymes are elevated. LDH is up to 205 5. DIAGNOSTIC IMPRESSION AND PLAN: Patient with acute COVID-19 pneumonia with acute vent dependent respiratory failure. The patient is currently being treated with Plaquenil and Zithromax along with hydrocortisone. He did receive a dose of that was ordered this morning. Will see clinical response and monitor clinical course closely. MMODL / IJN: [id number] /
[2019-12-14 17:56] LABS: Glucose,Whole Blood 230 mg/dL (75-99)
[2019-12-14 20:18] LABS: Glucose,Whole Blood 206 mg/dL (75-99)
[2019-12-14 21:58] LABS: Glucose,Whole Blood 222 mg/dL (75-99)
[2019-12-14 23:47] LABS: Glucose,Whole Blood 260 mg/dL (75-99)
[2019-12-15] MEDS: PROPOFOL 1,000 MG in EMPTY BAG 1 BAG IV SCH ×13 (00:10→23:47)
[2019-12-15 02:24] LABS: Glucose,Whole Blood 214 mg/dL (75-99)
[2019-12-15 04:05] LABS: Glucose,Whole Blood 250 mg/dL (75-99)
[2019-12-15] MEDS: fentaNYL (PF) 1,000 MCG in SODIUM CHLORIDE 0.9% 80 ML IV SCH ×2 (04:16→15:31)
[2019-12-15 04:27] LABS: HCT 30.9 % (34.0-46.0); HGB 9.7 gm/dL (11.4-16.0); Hypochromasia Marked; MCH 26.5 pg (25.0-35.0); MCHC 31.6 g/dL (31.0-37.0); MCV 83.9 fL (80.0-100.0); Mean Platelet Volume 8.5; Platelet Count 209 k/uL (150-450); Poikilocytosis Slight; RBC 3.68 m/uL (3.80-5.40); RDW 15.6 % (11.5-15.5)
[2019-12-15 04:29] LABS: Albumin 2.8 g/dL (3.5-5.0); Calcium 8.3 mg/dL (8.4-10.2); Potassium 3.8 mmol/L (3.5-5.1); Total Bilirubin 0.5 mg/dL (0.2-1.3); Total Protein 5.4 g/dL (6.3-8.2)
[2019-12-15 05:05] LABS: Band Neutrophils % 6 %; Myelocytes % 1 %; Neutrophils % (M) 83 %; Nucleated Red Blood Cells 4 /100 WBC (0-0); Total Cells Counted 200
[2019-12-15 05:06] LABS: Lymphocytes # (M) 0.38 k/uL (1.0-4.8); Monocytes # (M) 0.16 k/uL (0-1.0); Myelocytes # (M) 0.05 k/uL (0); Polychromasia Present; WBC 5.4 k/uL (3.8-10.6)
[2019-12-15] MEDS: POTASSIUM CHLORIDE 10 MEQ in WATER FOR INJECTION 1 100ML.BAG IVPB SCH ×2 (05:38→07:00)
[2019-12-15 05:46] LABS: Glucose,Whole Blood 191 mg/dL (75-99)
[2019-12-15 05:49] LABS: C Reactive Protein 157.8 mg/L (<10.0)
[2019-12-15 06:54] LABS: Glucose,Whole Blood 206 mg/dL (75-99)
[2019-12-15] MEDS: SODIUM CHLORIDE 0.9% 1,000 ML IV SCH (07:00)
[2019-12-15] MEDS: INSULIN REGULAR 100 UNIT in SODIUM CHLORIDE 0.9% 100 ML IV SCH ×3 (07:01→23:47)
[2019-12-15 07:51] LABS: ABG Base Excess -4.7 mmol/L; ABG HCO3 21 mmol/L (21-25); ABG Oxygen Saturation 95.4 % (94-97); ABG PCO2 41 mmHg (35-45); ABG PH 7.33 (7.35-7.45); ABG PO2 79 mmHg (83-108); ABG TCO2 23 mmol/L (19-24)
[2019-12-15 07:53] LABS: Allen Test Performed? no
--- NOTE | 2019-12-15 08:01 | XR ---
EXAMINATION TYPE: XR chest 1V portable DATE OF EXAM: 12/15/2019 COMPARISON: 12/14/2019 INDICATION: Tube placement TECHNIQUE: Single frontal view of the chest is obtained. FINDINGS: The heart size is moderately prominent. The pulmonary vasculature is indistinct. There is diffuse increased opacity over the mid to lower lung solitario bilaterally. This appears greate r at the right lung base. Findings may be worsening. Endotracheal tube tip is above the [place]. Nasogastric tube transverses the thorax. Right central bacilio ous catheter tip in the proximal superior vena cava region, stable. IMPRESSION: 1. Stable to worsening bilateral lung infiltrates. 2. Lines and catheters discussed above.
[2019-12-15] MEDS: AZITHROMYCIN 500 MG in SODIUM CHLORIDE 0.9% 250 ML IVPB SCH (08:21)
[2019-12-15] MEDS: PANTOPRAZOLE 40 MG/10 ML VIAL IVP SCH (08:22)
[2019-12-15] MEDS: HYDROCORTISONE SUCCINATE 100 MG/2 ML VIAL IV SCH ×3 (08:22→23:47)
[2019-12-15] MEDS: HYDROXYCHLOROQUINE ORAL SUSP 200 MG/8 ML ORAL.SYRG PO SCH ×2 (08:23→20:38)
[2019-12-15] MEDS: CHLORHEXIDINE GLUCONATE 15 ML CUP MUCOUS MEM SCH ×2 (08:24→20:12)
[2019-12-15] MEDS: levETIRAcetam ORAL SOLN 500 MG/5 ML CUP PO SCH ×2 (08:26→20:13)
[2019-12-15 08:53] LABS: Glucose,Whole Blood 175 mg/dL (75-99)
[2019-12-15] MEDS ORDERED: FUROSEMIDE 10 MG/ML 4 ML VIAL IV STA (09:30)
[2019-12-15 10:36] LABS: Glucose,Whole Blood 197 mg/dL (75-99)
--- NOTE | 2019-12-15 10:50 | CDI ---
Documentation Clarification Form Date: 12/15/2019 10:41:44 AM From: Alecia Victor RN, CCDS Admit Date: 12/12/2019 02:23:00 PM Patient Name: Marcy Rey Visit Number: [id number] ATTENTION: The Clinical Documentation Specialists (CDI) and [facility] Coding Staff appreciate your assistance in clarifying documentation. Please respond to the clarification below the line at the bottom and electronically sign. The CDI & [facility] Coding staff will review the response and follow-up if needed. Please note: Queries are made part of the Legal Health Record. If you have any questions, please contact the author of this message via ITS. Dr. Thomas Ricketts Please render your opinion on the clinical significance of the patients declining hemoglobin/hematocrit levels. History/Risk Factors: Sepsis and septic shock 2nd to COVID-19 pneumonia, A/C renal failure stage 3, MS, Myasthenia Gravis, COPD, asthma Clinical indicators: 12/11 - 12/14 Hgb: 11.6/9.8/10.3/9.7 4/ - 12/14 Hct: 37.5/33.2/ 34.7/ 30.9 Treatment: 2L IVF Bolus Lab Monitoring AM Daily In order to capture the severity of condition, please clarify if the labs/clinical indicators signify: Chronic blood loss anemia Iron deficiency anemia Drug induced anemia Nutritional anemia Anemia of chronic kidney disease Anemia of chronic disease 9please specify) Unable to determine Other, please specify (Last Form Revision: November 2019) SENT TO THE WRONG DOC. PLEASE SEND TO DR JAXON MILLER
[2019-12-15 11:20] LABS: Glucose,Whole Blood 208 mg/dL (75-99)
[2019-12-15 11:23] LABS: Ferritin 223.3 ng/mL (10.0-291.0)
[2019-12-15 11:45] LABS: Glucose,Whole Blood 222 mg/dL (75-99)
--- NOTE | 2019-12-15 12:50 | P.PN ---
Subjective Progress Note Date: 12/15/19 Principal diagnosis: Acute hypoxic respiratory failure secondary to pneumonia. This is a 59-year-old female with history of multiple medical problems including myasthenia gravis, type 2 diabetes, hypertension, GERD without esophagitis, patient is chronically on prednisone for underlying myasthenia gravis. Patient presented to the ER with 1 day history of increased shortness of breath, fever and cough. She was recently exposed to coworkers with proven positive covid 19 infection. Patient had no symptoms of nausea or vomiting, no abdominal pain, no diarrhea, no loss of sensation of smell or taste. In the ER the patient was noted to have a temp of 103. She was tachycardic and the relatively hypoxic. She was placed on a nonrebreather mask, transition to a high flow nasal cannula re-transitioned again to a non-rebreather mask, and she was admitted to the intensive care unit overnight. Patient clearly had significant elevated markers for covid 19 pneumonitis including significantly abnormal chest x-ray showing bilateral interstitial infiltrates. Her LDH was elevated. Her influenza screen was negative. And again her chest x-ray showed multifocal infiltrates. Patient was empirically placed on Actonel Rocephin and Zithromax, and shortly after I saw the patient, check ABG on the patient and clearly showed worsening hypoxic and hypercapnic respiratory failure. Patient was intubated and placed on mechanical ventilation. Patient also required propofol, fentanyl, and small dose of norepinephrine at 0.03 mcg/kg/m. Present ventilatory settings are assist control rate of 24 volume is 450 FiO2 is 100% and PEEP is 16. Peak airway pressure is 35, plateau pressure is 30. Patient was chronically on prednisone and this was switched to Cortef at 50 mg IV push every 8 hours. Reevaluated today on 12/14/19, patient remains on mechanical ventilation. Her ventilatory settings are assist control rate of 24 tidal volume of 400 FiO2 90% I cut it down to 70%, and PEEP is 16. Peak airway pressure is 35 plateau pressure is 33. Patient is positive for covid 19 pneumonitis. She is still requiring a small dose of norepinephrine at 0.02 mcg/kg/m, she is on propofol drip at 75 mcg/kg/m, she is also on fentanyl at 1 mcg/kg/m. Patient is also on insulin at 3 units per hour. Chest x-ray continues to show diffuse interstitial infiltrates. Patient was given a dose of Lasix at 40 mg IV push 1, and I cut down her IV fluid to 50 mL per hour. FiO2 was decreased down to 70%. Labs showed a pO2 of 143 pCO2 of 37 pH of 7.32. WBC count is 13.9 hemoglobin is 10.3 . D-dimer is 0.54. C-reactive protein is down to 265 from 404. Liver enzymes are elevated compared to yesterday. And ferritin level is 285 compared to 94 the day before. Pro-calcitonin is 5.52. Chest x-ray is worse compared to the chest x-ray on admission. Reevaluated today on 12/25/19, patient remains in the ICU, intubated and mechanically ventilated. Patient is positive for covid 19 pneumonitis. Her ventilator settings are assist control rate of 24 tidal volume is 450 FiO2 is 70% and PEEP is 16. Her peak airway pressure is 37 her plateau pressure is 35. Patient is on propofol at 75, fentanyl at 1 mcg/kg/h, insulin at 10 units per hour and she is on 0.9 normal saline at 50 mL per hour. Remains on enteral feeding. Her chest x-ray continues to show significant interstitial pneum onitis. And possibly some component of fluid overload hence patient was given Lasix 40 mg IV push times one. After reviewing her chest x-ray ABG and respiratory parameters, I cut down her FiO2 to 65% increase her assist control rate of 26 increased the PEEP to 18 and decreased her tidal volume to 400. WBC count is 5.4 hemoglobin is 9.7. PO2 is 79 pCO2 is 41 pH of 7.33. Slight worsening in the area profile noted, creatinine is up to 1.75. LDH is better today 1749 liver enzymes are elevated. C-reactive protein is 157 improved. Pro-calcitonin is 5.52. Chest x-ray again showed worsening bilateral lung infiltrates Objective - Vital Signs Vital signs: Vital Signs Temp 97.9 F 12/15/19 12:00 Pulse 80 12/15/19 12:00 Resp 26 H 12/15/19 12:00 BP 130/82 12/15/19 12:00 Pulse Ox 93 L 12/15/19 12:00 Intake & Output 12/14/19 12/15/19 12/15/19 18:59 06:59 18:59 Intake Total 4464.656 0788.034 979.562 Output Total 1030 1550 750 Balance 830.670 27.034 229.562 Weight 125.5 kg 130.6 kg 130.6 kg Intake: IV 1008 689 515 Azithromycin 500 mg In 250 250 Sodium Chloride 0.9% 250 ml @ 250 mls/hr IVPB DAILY [facility] Rx#:[id number] Pressure Bag 33 39 15 Sodium Chloride 0.9% 1, 525 650 50 000 ml @ 50 mls/hr IV . Q20H [facility] Rx#:[id number] Tocilizumab 400 mg In 100 Sodium Chloride 0.9% 80 ml @ 100 mls/hr IV ONCE ONE Rx#:[id number] cefTRIAXone 1 gm In 100 200 Sodium Chloride 0.9% 50 ml @ 100 mls/hr IVPB Q24HR [facility] Rx#:[id number] Intake, IV Titration 549.670 812.034 239.562 Amount Insulin Regular 100 unit 52.671 127.377 47.489 In Sodium Chloride 0.9% 100 ml @ Per Protocol IV .Q0M [facility] Rx#:[id number] Norepinephrine 4 mg In 35.808 108.796 Sodium Chloride 0.9% 250 ml @ 0.05 MCG/KG/MIN 15. 986 mls/hr IV .[id number] [facility] Rx#:[id number] Propofol 1,000 mg In 366.803 475.861 192.073 Empty Bag 1 bag @ Titrate IV .Q0M [facility] Rx#: [id number] fentaNYL (PF) 1,000 mcg 94.388 100 In Sodium Chloride 0.9% 80 ml @ 1 MCG/KG/HR 8.39 mls/hr IV .[id number] [facility] Rx #:[id number] Tube Feeding 213 46 165 Other 90 30 60 Output: Urine 1030 1550 750 Other: Voiding Method Indwelling Catheter Indwelling Catheter ABP, PAP, CO, CI - Last Documented Arterial Blood Pressure 168/87 - Exam Physical Exam: Revealed a 59-year-old female on mechanical ventilation, sedated on propofol and fentanyl. Head: Cushingoid, no neck masses, endotracheal tube and orogastric tube is intact. HEENT:[Neck is supple.] PERRLA, EOMI, no icterus, no JVD. Chest: [Diminished breath sounds and crackles at the bases. Rhonchi also noted bilaterally] Cardiac Exam: [Normal S1 and S2, no S3 gallop, no murmur.] Abdomen: [Obese, Soft, nontender, no megaly, no rebound, no guarding, normal bowel sounds.] Extremities: [No clubbing, no edema, no cyanosis.] Neurological Exam: Cannot be assessed, patient is sedated and on mechanical ventilation on propofol and fentanyl. Psychiatric: Could not be assessed. Skin: No rashes. Musculoskeletal: No deformities. - Labs CBC & Chem 7: 12/15/19 04:08 12/15/19 04:08 Labs: Abnormal Lab Results - Last 24 Hours (Table) 12/14/19 12/14/19 12/14/19 Range/Units 14:09 15:36 17:52 RBC (3.80-5.40) m/uL Hgb (11.4-16.0) gm/dL Hct (34.0-46.0) % RDW (11.5-15.5) % Lymphocytes # (Manual) (1.0-4.8) k/uL Myelocytes # (Manual) (0) k/uL Nucleated RBCs (0-0) /100 WBC ABG pH (7.35-7.45) ABG pO2 (83-108) mmHg Chloride (98-107) mmol/L Carbon Dioxide (22-30) mmol/L BUN (7-17) mg/dL Creatinine (0.52-1.04) mg/dL Glucose (74-99) mg/dL POC Glucose (mg/dL) 158 H 192 H 230 H (75-99) mg/dL Calcium (8.4-10.2) mg/dL AST (14-36) U/L ALT (4-34) U/L Alkaline Phosphatase (38-126) U/L Lactate Dehydrogenase (313-618) U/L Creatine Kinase (30-135) U/L C-Reactive Protein (<10.0) mg/L Total Protein (6.3-8.2) g/dL Albumin (3.5-5.0) g/dL 12/14/19 12/14/19 12/14/19 Range/Units 20:17 21:57 23:46 RBC (3.80-5.40) m/uL Hgb (11.4-16.0) gm/dL Hct (34.0-46.0) % RDW (11.5-15.5) % Lymphocytes # (Manual) (1.0-4.8) k/uL Myelocytes # (Manual) (0) k/uL Nucleated RBCs (0-0) /100 WBC ABG pH (7.35-7.45) ABG pO2 (83-108) mmHg Chloride (98-107) mmol/L Carbon Dioxide (22-30) mmol/L BUN (7-17) mg/dL Creatinine (0.52-1.04) mg/dL Glucose (74-99) mg/dL POC Glucose (mg/dL) 206 H 222 H 260 H (75-99) mg/dL Calcium (8.4-10.2) mg/dL AST (14-36) U/L ALT (4-34) U/L Alkaline Phosphatase (38-126) U/L Lactate Dehydrogenase (313-618) U/L Creatine Kinase (30-135) U/L C-Reactive Protein (<10.0) mg/L Total Protein (6.3-8.2) g/dL Albumin (3.5-5.0) g/dL 12/15/19 12/15/19 12/15/19 Range/Units 02:22 04:03 04:08 RBC (3.80-5.40) m/uL Hgb (11.4-16.0) gm/dL Hct (34.0-46.0) % RDW (11.5-15.5) % Lymphocytes # (Manual) (1.0-4.8) k/uL Myelocytes # (Manual) (0) k/uL Nucleated RBCs (0-0) /100 WBC ABG pH (7.35-7.45) ABG pO2 (83-108) mmHg Chloride 109 H (98-107) mmol/L Carbon Dioxide 21 L (22-30) mmol/L BUN 37 H (7-17) mg/dL Creatinine 1.75 H (0.52-1.04) mg/dL Glucose 243 H (74-99) mg/dL POC Glucose (mg/dL) 214 H 250 H (75-99) mg/dL Calcium 8.3 L (8.4-10.2) mg/dL AST 222 H (14-36) U/L ALT 245 H (4-34) U/L Alkaline Phosphatase 229 H (38-126) U/L Lactate Dehydrogenase 1749 H (313-618) U/L Creatine Kinase (30-135) U/L C-Reactive Protein (<10.0) mg/L Total Protein 5.4 L (6.3-8.2) g/dL Albumin 2.8 L (3.5-5.0) g/dL 12/15/19 12/15/19 12/15/19 Range/Units 04:08 04:08 05:45 RBC 3.68 L (3.80-5.40) m/uL Hgb 9.7 L (11.4-16.0) gm/dL Hct 30.9 L (34.0-46.0) % RDW 15.6 H (11.5-15.5) % Lymphocytes # (Manual) 0.38 L (1.0-4.8) k/uL Myelocytes # (Manual) 0.05 H (0) k/uL Nucleated RBCs 4 H (0-0) /100 WBC ABG pH (7.35-7.45) ABG pO2 (83-108) mmHg Chloride (98-107) mmol/L Carbon Dioxide (22-30) mmol/L BUN (7-17) mg/dL Creatinine (0.52-1.04) mg/dL Glucose (74-99) mg/dL POC Glucose (mg/dL) 191 H (75-99) mg/dL Calcium (8.4-10.2) mg/dL AST (14-36) U/L ALT (4-34) U/L Alkaline Phosphatase (38-126) U/L Lactate Dehydrogenase (313-618) U/L Creatine Kinase 1001 H* (30-135) U/L C-Reactive Protein 157.8 H (<10.0) mg/L Total Protein (6.3-8.2) g/dL Albumin (3.5-5.0) g/dL 12/15/19 12/15/19 12/15/19 Range/Units 06:53 07:44 08:33 RBC (3.80-5.40) m/uL Hgb (11.4-16.0) gm/dL Hct (34.0-46.0) % RDW (11.5-15.5) % Lymphocytes # (Manual) (1.0-4.8) k/uL Myelocytes # (Manual) (0) k/uL Nucleated RBCs (0-0) /100 WBC ABG pH 7.33 L (7.35-7.45) ABG pO2 79 L (83-108) mmHg Chloride (98-107) mmol/L Carbon Dioxide (22-30) mmol/L BUN (7-17) mg/dL Creatinine (0.52-1.04) mg/dL Glucose (74-99) mg/dL POC Glucose (mg/dL) 206 H 175 H (75-99) mg/dL Calcium (8.4-10.2) mg/dL AST (14-36) U/L ALT (4-34) U/L Alkaline Phosphatase (38-126) U/L Lactate Dehydrogenase (313-618) U/L Creatine Kinase (30-135) U/L C-Reactive Protein (<10.0) mg/L Total Protein (6.3-8.2) g/dL Albumin (3.5-5.0) g/dL 12/15/19 12/15/19 12/15/19 Range/Units 10:18 11:17 11:44 RBC (3.80-5.40) m/uL Hgb (11.4-16.0) gm/dL Hct (34.0-46.0) % RDW (11.5-15.5) % Lymphocytes # (Manual) (1.0-4.8) k/uL Myelocytes # (Manual) (0) k/uL Nucleated RBCs (0-0) /100 WBC ABG pH (7.35-7.45) ABG pO2 (83-108) mmHg Chloride (98-107) mmol/L Carbon Dioxide (22-30) mmol/L BUN (7-17) mg/dL Creatinine (0.52-1.04) mg/dL Glucose (74-99) mg/dL POC Glucose (mg/dL) 197 H 208 H 222 H (75-99) mg/dL Calcium (8.4-10.2) mg/dL AST (14-36) U/L ALT (4-34) U/L Alkaline Phosphatase (38-126) U/L Lactate Dehydrogenase (313-618) U/L Creatine Kinase (30-135) U/L C-Reactive Protein (<10.0) mg/L Total Protein (6.3-8.2) g/dL Albumin (3.5-5.0) g/dL Microbiology - Last 24 Hours (Table) 12/12/19 11:45 Blood Culture - Preliminary Blood No Growth after 48 hours Assessment and Plan Assessment: Impression: Acute hypoxic and hypercapnic respiratory failure secondary to pneumonitis,covid 19 pneumonitis, Underlying bacterial pneumonia is not entirely ruled out. Especially with elevated pro calcitonin of 5.52. History of myasthenia gravis, in remission however could be contributing to worsening hypercapnic respiratory failure. Acute sepsis and septic shock secondary to pneumonia Type 2 diabetes. Morbid obesity. Recommendation: Continue ventilatory support. Changed PEEP to 18 assist control rate of 26 FiO2 down to 65% and tidal volume down to 400 Continue nutritional support. Enteral feeding Continue Insulin drip for elevated blood sugar. Presently at 10 units per hour. GI and DVT prophylaxis. Continue ceftriaxone, Zithromax, hydroxychloroquine, Continue Solu-Cortef at 50 mg IV push every 8 hours. Patient is normally on prednisone at 15 mg daily maintenance for her myasthenia gravis. Patient was given Lasix 40 mg IV push 1. Decreased IV fluid to 50 mL per hour. Patient is obviously critically ill, Critical care time is 36 minutes Time with Patient: Greater than 30
[2019-12-15 13:12] LABS: Glucose,Whole Blood 190 mg/dL (75-99)
[2019-12-15 14:25] LABS: Glucose,Whole Blood 193 mg/dL (75-99)
--- NOTE | 2019-12-15 14:29 | P.PN ---
Subjective Progress Note Date: 12/15/19 This is a 59-year-old female, history of myasthenia gravis and multiple other medical issues exposed to COVID-19 at work, in a psychiatric [facility] in [place] admitted with bilateral pneumonia, possible Covid-19. Influenza screening negative. Tested positive for coronavirus. LDH trending up currently 1285. Maintained on Rocephin, Plaquenil and Zithromax. D-dimer elevated at 0.63. Overnight patient was maintained on a nonrebreather mask. Chest x-ray this morning reporting worsening persistent multifocal patchy and confluent airspace disease, greatest in the right upper and left lower lobes. Dyspnea worsened and patient was intubated this morning. Currentlly on FiO2 of 90%/+16 of PEEP. Maintained on diprovan, fentanyl drip, Levophed. Evaluated by neurology with recommendations noted and appreciated, no IVIG at this time as patient's myasthenia gravis felt to be in remission. Continues on Cortef. Blood sugars elevated, on insulin drip. ABGs noted, acidotic with pH of 7.28, pCO2 47 pO2 87, bicarb 22, total CO2 24, O2 sat 96.9, base excess -4.4 on 100% FiO2. Mild improvement in renal function -Creatinine down to 1.2. 12/14/2019 remains vent dependent. This morning patient required FiO2 90% and PEEP of 16, further weaned to 70%. Received Actemra. FiO2 further weaned to 60%. Chest x-ray reporting diffuse interstitial infiltrates , pleural effusion unchanged, received a dose of Lasix IV push. ABGs noted. Continues on diprovan, fentanyl and Levophed. Renal function worsening, creatinine up to 1.72. Blood sugars currently better controlled, on insulin drip. LDH up to 5. Ferritin level up to 285.9. 12/15/2019 maintained on Rocephin, Zithromax, Plaquenil , IV push I Cortef. FiO2 down to 65%, PEEP remains at 16. ABGs noted. Chest x-ray reporting stable to worsening bilateral lung infiltrates. Scheduled for another dose of Actemra. Maintained on diprovan, fentanyl, insulin drips in addition to gentle IV fluid hydration. C-reactive protein improved ,157.8. Creatinine kinase up to 1001. LDH better, 1749. LFTs elevated, holding. Renal function minimally worsened, BUN up to 37, creatinine up to 1.7. Afebrile, normal WBC. Objective - Vital Signs Vital signs: Vital Signs Temp 98.3 F 12/15/19 08:00 Pulse 71 12/15/19 10:00 Resp 26 H 12/15/19 10:00 BP 106/76 12/15/19 08:00 Pulse Ox 94 L 12/15/19 10:00 Intake & Output 12/14/19 12/15/19 12/15/19 18:59 06:59 18:59 Intake Total 7496.139 0830.034 674.913 Output Total 1030 1550 100 Balance 830.670 27.034 574.913 Weight 125.5 kg 130.6 kg 130.6 kg Intake: IV 1008 689 356 Azithromycin 500 mg In 250 250 Sodium Chloride 0.9% 250 ml @ 250 mls/hr IVPB DAILY [facility] Rx#:[id number] Pressure Bag 33 39 6 Sodium Chloride 0.9% 1, 525 650 0 000 ml @ 50 mls/hr IV . Q20H [facility] Rx#:[id number] Tocilizumab 400 mg In 100 Sodium Chloride 0.9% 80 ml @ 100 mls/hr IV ONCE ONE Rx#:[id number] cefTRIAXone 1 gm In 100 100 Sodium Chloride 0.9% 50 ml @ 100 mls/hr IVPB Q24HR [facility] Rx#:[id number] Intake, IV Titration 549.670 812.034 222.913 Amount Insulin Regular 100 unit 52.671 127.377 30.840 In Sodium Chloride 0.9% 100 ml @ Per Protocol IV .Q0M [facility] Rx#:[id number] Norepinephrine 4 mg In 35.808 108.796 Sodium Chloride 0.9% 250 ml @ 0.05 MCG/KG/MIN 15. 986 mls/hr IV .[id number] [facility] Rx#:[id number] Propofol 1,000 mg In 366.803 475.861 192.073 Empty Bag 1 bag @ Titrate IV .Q0M [facility] Rx#: [id number] fentaNYL (PF) 1,000 mcg 94.388 100 In Sodium Chloride 0.9% 80 ml @ 1 MCG/KG/HR 8.39 mls/hr IV .[id number] [facility] Rx #:[id number] Tube Feeding 213 46 66 Other 90 30 30 Output: Urine 1030 1550 100 Other: Voiding Method Indwelling Catheter Indwelling Catheter ABP, PAP, CO, CI - Last Documented Arterial Blood Pressure 127/77 - Exam PHYSICAL EXAM: VITAL SIGNS: As above GENERAL: intubated and sedated, on mechanical ventilation with propofol and fentanyl HEENT: Cushingoid ,Conjunctivae normal. eyes normal. NECK: No JVD. No thyroid enlargement. No LNs CARDIOVASCULAR: S1, S2 regular. No murmur RESPIRATION: Breath sounds diminished. Scattered Rhonchi with bibasilar crackles. No wheezing ABDOMEN: Soft, obese, nontender . No guarding. no masses palpable. Bowel sounds heard. LEGS: No edema. no swelling, no cyanosis PSYCHIATRY: Unable to assess patient sedated and on mechanical ventilation NERVOUS SYSTEM: Unable to assess patient sedated and on mechanical ventilation Skin: no rash - Labs CBC & Chem 7: 12/15/19 04:08 12/15/19 04:08 Labs: Abnormal Lab Results - Last 24 Hours (Table) 12/14/19 12/14/19 12/14/19 Range/Units 09:52 10:44 11:56 RBC (3.80-5.40) m/uL Hgb (11.4-16.0) gm/dL Hct (34.0-46.0) % RDW (11.5-15.5) % Lymphocytes # (Manual) (1.0-4.8) k/uL Myelocytes # (Manual) (0) k/uL Nucleated RBCs (0-0) /100 WBC ABG pH (7.35-7.45) ABG pO2 (83-108) mmHg Chloride (98-107) mmol/L Carbon Dioxide (22-30) mmol/L BUN (7-17) mg/dL Creatinine (0.52-1.04) mg/dL Glucose (74-99) mg/dL POC Glucose (mg/dL) 188 H 198 H 186 H (75-99) mg/dL Calcium (8.4-10.2) mg/dL AST (14-36) U/L ALT (4-34) U/L Alkaline Phosphatase (38-126) U/L Lactate Dehydrogenase (313-618) U/L Creatine Kinase (30-135) U/L C-Reactive Protein (<10.0) mg/L Total Protein (6.3-8.2) g/dL Albumin (3.5-5.0) g/dL 12/14/19 12/14/19 12/14/19 Range/Units 14:09 15:36 17:52 RBC (3.80-5.40) m/uL Hgb (11.4-16.0) gm/dL Hct (34.0-46.0) % RDW (11.5-15.5) % Lymphocytes # (Manual) (1.0-4.8) k/uL Myelocytes # (Manual) (0) k/uL Nucleated RBCs (0-0) /100 WBC ABG pH (7.35-7.45) ABG pO2 (83-108) mmHg Chloride (98-107) mmol/L Carbon Dioxide (22-30) mmol/L BUN (7-17) mg/dL Creatinine (0.52-1.04) mg/dL Glucose (74-99) mg/dL POC Glucose (mg/dL) 158 H 192 H 230 H (75-99) mg/dL Calcium (8.4-10.2) mg/dL AST (14-36) U/L ALT (4-34) U/L Alkaline Phosphatase (38-126) U/L Lactate Dehydrogenase (313-618) U/L Creatine Kinase (30-135) U/L C-Reactive Protein (<10.0) mg/L Total Protein (6.3-8.2) g/dL Albumin (3.5-5.0) g/dL 12/14/19 12/14/19 12/14/19 Range/Units 20:17 21:57 23:46 RBC (3.80-5.40) m/uL Hgb (11.4-16.0) gm/dL Hct (34.0-46.0) % RDW (11.5-15.5) % Lymphocytes # (Manual) (1.0-4.8) k/uL Myelocytes # (Manual) (0) k/uL Nucleated RBCs (0-0) /100 WBC ABG pH (7.35-7.45) ABG pO2 (83-108) mmHg Chloride (98-107) mmol/L Carbon Dioxide (22-30) mmol/L BUN (7-17) mg/dL Creatinine (0.52-1.04) mg/dL Glucose (74-99) mg/dL POC Glucose (mg/dL) 206 H 222 H 260 H (75-99) mg/dL Calcium (8.4-10.2) mg/dL AST (14-36) U/L ALT (4-34) U/L Alkaline Phosphatase (38-126) U/L Lactate Dehydrogenase (313-618) U/L Creatine Kinase (30-135) U/L C-Reactive Protein (<10.0) mg/L Total Protein (6.3-8.2) g/dL Albumin (3.5-5.0) g/dL 12/15/19 12/15/19 12/15/19 Range/Units 02:22 04:03 04:08 RBC (3.80-5.40) m/uL Hgb (11.4-16.0) gm/dL Hct (34.0-46.0) % RDW (11.5-15.5) % Lymphocytes # (Manual) (1.0-4.8) k/uL Myelocytes # (Manual) (0) k/uL Nucleated RBCs (0-0) /100 WBC ABG pH (7.35-7.45) ABG pO2 (83-108) mmHg Chloride 109 H (98-107) mmol/L Carbon Dioxide 21 L (22-30) mmol/L BUN 37 H (7-17) mg/dL Creatinine 1.75 H (0.52-1.04) mg/dL Glucose 243 H (74-99) mg/dL POC Glucose (mg/dL) 214 H 250 H (75-99) mg/dL Calcium 8.3 L (8.4-10.2) mg/dL AST 222 H (14-36) U/L ALT 245 H (4-34) U/L Alkaline Phosphatase 229 H (38-126) U/L Lactate Dehydrogenase 1749 H (313-618) U/L Creatine Kinase (30-135) U/L C-Reactive Protein (<10.0) mg/L Total Protein 5.4 L (6.3-8.2) g/dL Albumin 2.8 L (3.5-5.0) g/dL 12/15/19 12/15/19 12/15/19 Range/Units 04:08 04:08 05:45 RBC 3.68 L (3.80-5.40) m/uL Hgb 9.7 L (11.4-16.0) gm/dL Hct 30.9 L (34.0-46.0) % RDW 15.6 H (11.5-15.5) % Lymphocytes # (Manual) 0.38 L (1.0-4.8) k/uL Myelocytes # (Manual) 0.05 H (0) k/uL Nucleated RBCs 4 H (0-0) /100 WBC ABG pH (7.35-7.45) ABG pO2 (83-108) mmHg Chloride (98-107) mmol/L Carbon Dioxide (22-30) mmol/L BUN (7-17) mg/dL Creatinine (0.52-1.04) mg/dL Glucose (74-99) mg/dL POC Glucose (mg/dL) 191 H (75-99) mg/dL Calcium (8.4-10.2) mg/dL AST (14-36) U/L ALT (4-34) U/L Alkaline Phosphatase (38-126) U/L Lactate Dehydrogenase (313-618) U/L Creatine Kinase 1001 H* (30-135) U/L C-Reactive Protein 157.8 H (<10.0) mg/L Total Protein (6.3-8.2) g/dL Albumin (3.5-5.0) g/dL 12/15/19 12/15/19 12/15/19 Range/Units 06:53 07:44 08:33 RBC (3.80-5.40) m/uL Hgb (11.4-16.0) gm/dL Hct (34.0-46.0) % RDW (11.5-15.5) % Lymphocytes # (Manual) (1.0-4.8) k/uL Myelocytes # (Manual) (0) k/uL Nucleated RBCs (0-0) /100 WBC ABG pH 7.33 L (7.35-7.45) ABG pO2 79 L (83-108) mmHg Chloride (98-107) mmol/L Carbon Dioxide (22-30) mmol/L BUN (7-17) mg/dL Creatinine (0.52-1.04) mg/dL Glucose (74-99) mg/dL POC Glucose (mg/dL) 206 H 175 H (75-99) mg/dL Calcium (8.4-10.2) mg/dL AST (14-36) U/L ALT (4-34) U/L Alkaline Phosphatase (38-126) U/L Lactate Dehydrogenase (313-618) U/L Creatine Kinase (30-135) U/L C-Reactive Protein (<10.0) mg/L Total Protein (6.3-8.2) g/dL Albumin (3.5-5.0) g/dL 12/15/19 Range/Units 10:18 RBC (3.80-5.40) m/uL Hgb (11.4-16.0) gm/dL Hct (34.0-46.0) % RDW (11.5-15.5) % Lymphocytes # (Manual) (1.0-4.8) k/uL Myelocytes # (Manual) (0) k/uL Nucleated RBCs (0-0) /100 WBC ABG pH (7.35-7.45) ABG pO2 (83-108) mmHg Chloride (98-107) mmol/L Carbon Dioxide (22-30) mmol/L BUN (7-17) mg/dL Creatinine (0.52-1.04) mg/dL Glucose (74-99) mg/dL POC Glucose (mg/dL) 197 H (75-99) mg/dL Calcium (8.4-10.2) mg/dL AST (14-36) U/L ALT (4-34) U/L Alkaline Phosphatase (38-126) U/L Lactate Dehydrogenase (313-618) U/L Creatine Kinase (30-135) U/L C-Reactive Protein (<10.0) mg/L Total Protein (6.3-8.2) g/dL Albumin (3.5-5.0) g/dL Microbiology - Last 24 Hours (Table) 12/12/19 11:45 Blood Culture - Preliminary Blood No Growth after 48 hours Assessment and Plan Assessment: -Acute COVID-19 multifocal pneumonia -Acute hypoxic and hypercapnic respiratory failure secondary to the above, ventilator dependent -Acute sepsis with septic shock secondary to #1 -Hypotension, status post pressor dependent, secondary to the above -Diabetes mellitus, type II -Myasthenia gravis, currently in remission, intolerant to M[place], monthly treatments with IVIG -History of multiple sclerosis -Morbid obesity, BMI 50.6 -Obstructive sleep apnea, on BiPAP -Diabetes mellitus, uncontrolled, hyperglycemic on insulin drip -Gastroesophageal reflux disease -History of hypertension -Osteoarthritis -Anxiety -Former nicotine dependence -Glaucoma -Seizure disorder -Acute on chronic renal failure, stage III, baseline 1.1 -Chronic diastolic CHF Plan: Continue on current medication regime , PPI, monitoring and symptomatic treatment. Repeating Actermra today, antibiotics as per ID. follow closely with multiple consults .Prognosis guarded given multiple complex medical issues. The impression and plan of care has been dictated as directed. : I performed a history and examination of this patient, discussed the same with the dictator. I agree with the dictator's note ,documented as a scribe. Any additional findings or plans will be noted.
[2019-12-15] MEDS ORDERED: TOCILIZUMAB 400 MG in SODIUM CHLORIDE 0.9% 80 ML IV ONE (15:00)
[2019-12-15 15:52] LABS: Glucose,Whole Blood 170 mg/dL (75-99)
[2019-12-15 17:11] LABS: Glucose,Whole Blood 153 mg/dL (75-99)
[2019-12-15 18:13] LABS: Glucose,Whole Blood 147 mg/dL (75-99)
--- NOTE | 2019-12-15 19:35 | P.PN ---
Subjective Progress Note Date: 12/15/19 Patient still intubated. Patient is heavily sedated. Cannot assess underlying myasthenic symptoms. At present patient is on propofol 75 g and 1.0 fentanyl for sedation. Her lungs have been stable. She is off Levophed. Patient has been receiving hydroxychloroquine, and also received Tocilizumab 400 mg for COVID infection today. Objective - Vital Signs Vital signs: Vital Signs Temp 98.0 F 12/15/19 16:00 Pulse 64 12/15/19 19:00 Resp 26 H 12/15/19 19:00 BP 137/79 12/15/19 19:00 Pulse Ox 95 12/15/19 19:00 Intake & Output 12/15/19 12/15/19 12/16/19 06:59 18:59 06:59 Intake Total 4492.639 3525.861 Output Total 1550 2325 Balance 27.034 -257.139 Weight 130.6 kg 130.6 kg Intake: IV 689 986 Azithromycin 500 mg In 250 Sodium Chloride 0.9% 250 ml @ 250 mls/hr IVPB DAILY [facility] Rx#:[id number] Pressure Bag 39 36 Sodium Chloride 0.9% 1, 650 400 000 ml @ 50 mls/hr IV . Q20H [facility] Rx#:[id number] Tocilizumab 400 mg In 100 Sodium Chloride 0.9% 80 ml @ 100 mls/hr IV ONCE ONE Rx#:[id number] cefTRIAXone 1 gm In 200 Sodium Chloride 0.9% 50 ml @ 100 mls/hr IVPB Q24HR [facility] Rx#:[id number] Intake, IV Titration 812.034 672.861 Amount Insulin Regular 100 unit 127.377 112.937 In Sodium Chloride 0.9% 100 ml @ Per Protocol IV .Q0M [facility] Rx#:[id number] Norepinephrine 4 mg In 108.796 Sodium Chloride 0.9% 250 ml @ 0.05 MCG/KG/MIN 15. 986 mls/hr IV .[id number] [facility] Rx#:[id number] Propofol 1,000 mg In 475.861 465.536 Empty Bag 1 bag @ Titrate IV .Q0M [facility] Rx#: [id number] fentaNYL (PF) 1,000 mcg 100 94.388 In Sodium Chloride 0.9% 80 ml @ 1 MCG/KG/HR 8.39 mls/hr IV .[id number] [facility] Rx #:[id number] Tube Feeding 46 319 Other 30 90 Output: Urine 1550 2325 Other: Voiding Method Indwelling Catheter Indwelling Catheter ABP, PAP, CO, CI - Last Documented Arterial Blood Pressure 123/74 - Exam Patient on mechanical ventilation, sedated. - Labs CBC & Chem 7: 12/15/19 04:08 12/15/19 04:08 Labs: Abnormal Lab Results - Last 24 Hours (Table) 12/14/19 12/14/19 12/14/19 Range/Units 20:17 21:57 23:46 RBC (3.80-5.40) m/uL Hgb (11.4-16.0) gm/dL Hct (34.0-46.0) % RDW (11.5-15.5) % Lymphocytes # (Manual) (1.0-4.8) k/uL Myelocytes # (Manual) (0) k/uL Nucleated RBCs (0-0) /100 WBC ABG pH (7.35-7.45) ABG pO2 (83-108) mmHg Chloride (98-107) mmol/L Carbon Dioxide (22-30) mmol/L BUN (7-17) mg/dL Creatinine (0.52-1.04) mg/dL Glucose (74-99) mg/dL POC Glucose (mg/dL) 206 H 222 H 260 H (75-99) mg/dL Calcium (8.4-10.2) mg/dL AST (14-36) U/L ALT (4-34) U/L Alkaline Phosphatase (38-126) U/L Lactate Dehydrogenase (313-618) U/L Creatine Kinase (30-135) U/L C-Reactive Protein (<10.0) mg/L Total Protein (6.3-8.2) g/dL Albumin (3.5-5.0) g/dL 12/15/19 12/15/19 12/15/19 Range/Units 02:22 04:03 04:08 RBC (3.80-5.40) m/uL Hgb (11.4-16.0) gm/dL Hct (34.0-46.0) % RDW (11.5-15.5) % Lymphocytes # (Manual) (1.0-4.8) k/uL Myelocytes # (Manual) (0) k/uL Nucleated RBCs (0-0) /100 WBC ABG pH (7.35-7.45) ABG pO2 (83-108) mmHg Chloride 109 H (98-107) mmol/L Carbon Dioxide 21 L (22-30) mmol/L BUN 37 H (7-17) mg/dL Creatinine 1.75 H (0.52-1.04) mg/dL Glucose 243 H (74-99) mg/dL POC Glucose (mg/dL) 214 H 250 H (75-99) mg/dL Calcium 8.3 L (8.4-10.2) mg/dL AST 222 H (14-36) U/L ALT 245 H (4-34) U/L Alkaline Phosphatase 229 H (38-126) U/L Lactate Dehydrogenase 1749 H (313-618) U/L Creatine Kinase (30-135) U/L C-Reactive Protein (<10.0) mg/L Total Protein 5.4 L (6.3-8.2) g/dL Albumin 2.8 L (3.5-5.0) g/dL 12/15/19 12/15/19 12/15/19 Range/Units 04:08 04:08 05:45 RBC 3.68 L (3.80-5.40) m/uL Hgb 9.7 L (11.4-16.0) gm/dL Hct 30.9 L (34.0-46.0) % RDW 15.6 H (11.5-15.5) % Lymphocytes # (Manual) 0.38 L (1.0-4.8) k/uL Myelocytes # (Manual) 0.05 H (0) k/uL Nucleated RBCs 4 H (0-0) /100 WBC ABG pH (7.35-7.45) ABG pO2 (83-108) mmHg Chloride (98-107) mmol/L Carbon Dioxide (22-30) mmol/L BUN (7-17) mg/dL Creatinine (0.52-1.04) mg/dL Glucose (74-99) mg/dL POC Glucose (mg/dL) 191 H (75-99) mg/dL Calcium (8.4-10.2) mg/dL AST (14-36) U/L ALT (4-34) U/L Alkaline Phosphatase (38-126) U/L Lactate Dehydrogenase (313-618) U/L Creatine Kinase 1001 H* (30-135) U/L C-Reactive Protein 157.8 H (<10.0) mg/L Total Protein (6.3-8.2) g/dL Albumin (3.5-5.0) g/dL 12/15/19 12/15/19 12/15/19 Range/Units 06:53 07:44 08:33 RBC (3.80-5.40) m/uL Hgb (11.4-16.0) gm/dL Hct (34.0-46.0) % RDW (11.5-15.5) % Lymphocytes # (Manual) (1.0-4.8) k/uL Myelocytes # (Manual) (0) k/uL Nucleated RBCs (0-0) /100 WBC ABG pH 7.33 L (7.35-7.45) ABG pO2 79 L (83-108) mmHg Chloride (98-107) mmol/L Carbon Dioxide (22-30) mmol/L BUN (7-17) mg/dL Creatinine (0.52-1.04) mg/dL Glucose (74-99) mg/dL POC Glucose (mg/dL) 206 H 175 H (75-99) mg/dL Calcium (8.4-10.2) mg/dL AST (14-36) U/L ALT (4-34) U/L Alkaline Phosphatase (38-126) U/L Lactate Dehydrogenase (313-618) U/L Creatine Kinase (30-135) U/L C-Reactive Protein (<10.0) mg/L Total Protein (6.3-8.2) g/dL Albumin (3.5-5.0) g/dL 12/15/19 12/15/19 12/15/19 Range/Units 10:18 11:17 11:44 RBC (3.80-5.40) m/uL Hgb (11.4-16.0) gm/dL Hct (34.0-46.0) % RDW (11.5-15.5) % Lymphocytes # (Manual) (1.0-4.8) k/uL Myelocytes # (Manual) (0) k/uL Nucleated RBCs (0-0) /100 WBC ABG pH (7.35-7.45) ABG pO2 (83-108) mmHg Chloride (98-107) mmol/L Carbon Dioxide (22-30) mmol/L BUN (7-17) mg/dL Creatinine (0.52-1.04) mg/dL Glucose (74-99) mg/dL POC Glucose (mg/dL) 197 H 208 H 222 H (75-99) mg/dL Calcium (8.4-10.2) mg/dL AST (14-36) U/L ALT (4-34) U/L Alkaline Phosphatase (38-126) U/L Lactate Dehydrogenase (313-618) U/L Creatine Kinase (30-135) U/L C-Reactive Protein (<10.0) mg/L Total Protein (6.3-8.2) g/dL Albumin (3.5-5.0) g/dL 12/15/19 12/15/19 12/15/19 Range/Units 13:06 14:23 15:50 RBC (3.80-5.40) m/uL Hgb (11.4-16.0) gm/dL Hct (34.0-46.0) % RDW (11.5-15.5) % Lymphocytes # (Manual) (1.0-4.8) k/uL Myelocytes # (Manual) (0) k/uL Nucleated RBCs (0-0) /100 WBC ABG pH (7.35-7.45) ABG pO2 (83-108) mmHg Chloride (98-107) mmol/L Carbon Dioxide (22-30) mmol/L BUN (7-17) mg/dL Creatinine (0.52-1.04) mg/dL Glucose (74-99) mg/dL POC Glucose (mg/dL) 190 H 193 H 170 H (75-99) mg/dL Calcium (8.4-10.2) mg/dL AST (14-36) U/L ALT (4-34) U/L Alkaline Phosphatase (38-126) U/L Lactate Dehydrogenase (313-618) U/L Creatine Kinase (30-135) U/L C-Reactive Protein (<10.0) mg/L Total Protein (6.3-8.2) g/dL Albumin (3.5-5.0) g/dL 12/15/19 12/15/19 Range/Units 17:10 18:11 RBC (3.80-5.40) m/uL Hgb (11.4-16.0) gm/dL Hct (34.0-46.0) % RDW (11.5-15.5) % Lymphocytes # (Manual) (1.0-4.8) k/uL Myelocytes # (Manual) (0) k/uL Nucleated RBCs (0-0) /100 WBC ABG pH (7.35-7.45) ABG pO2 (83-108) mmHg Chloride (98-107) mmol/L Carbon Dioxide (22-30) mmol/L BUN (7-17) mg/dL Creatinine (0.52-1.04) mg/dL Glucose (74-99) mg/dL POC Glucose (mg/dL) 153 H 147 H (75-99) mg/dL Calcium (8.4-10.2) mg/dL AST (14-36) U/L ALT (4-34) U/L Alkaline Phosphatase (38-126) U/L Lactate Dehydrogenase (313-618) U/L Creatine Kinase (30-135) U/L C-Reactive Protein (<10.0) mg/L Total Protein (6.3-8.2) g/dL Albumin (3.5-5.0) g/dL Microbiology - Last 24 Hours (Table) 12/12/19 11:45 Blood Culture - Preliminary Blood No Growth after 72 hours Assessment and Plan Assessment: * Myasthenia gravis, currently in remission. Patient is status post treatment with IVIG about a month ago for myasthenia gravis exacerbation. * Acute multifocal pneumonia, due to Covid-19. * Diabetes poorly controlled * Obesity Plan: * Patient's myasthenia gravis is in remission at this time. Examination limited due to patient being sedated. * Treatment of COVID as per ID and critical care. * If she develops any myasthenia gravis exacerbation, we will consider treatment with IVIG. * Your medical management. * Please call neurology, if she develops any symptoms of myasthenia gravis.
[2019-12-15 20:29] LABS: Glucose,Whole Blood 217 mg/dL (75-99)
[2019-12-15 22:13] LABS: Glucose,Whole Blood 199 mg/dL (75-99)
--- NOTE | 2019-12-15 22:15 | PN ---
PROGRESS NOTE DATE OF SERVICE: 12/15/2019 REASON FOR FOLLOWUP: Acute COVID-19 pneumonia. INTERVAL HISTORY: The patient has been afebrile. The patient is hemodynamically stable, not requiring any pressor support. Last night the patient went up to 70% FiO2, and it has been brought down to 65% FiO2 at the time of evaluation. No significant purulent secretion in the ET and no diarrhea has been reported. PHYSICAL EXAMINATION: Blood pressure 116/68 with a pulse of 66, temperature 97.8. She is 93% on 60% FiO2. General description is a middle-aged female lying in bed in no distress. RESPIRATORY SYSTEM: Unlabored breathing with decreased intensity of breath sounds. No wheeze. HEART: S1, S2. Regular rate and rhythm. ABDOMEN: Soft. No tenderness. LABS: Hemoglobin 9.7, white count 5.4. BUN of 37, creatinine 1.75. LDH mildly decreased. DIAGNOSTIC IMPRESSION AND PLAN: Patient with acute respiratory failure which is likely multifactorial in this patient with acute COVID-19 pneumonia. Patient's x-ray continues to have diffuse increased opacity bilaterally. She is covered with the Zithromax, Plaquenil. Will give her second dose of the and will monitor clinical course closely. MMODL / IJN: [id number] /
[2019-12-15] MEDS: NOREPINEPHRINE 4 MG in SODIUM CHLORIDE 0.9% 250 ML IV SCH (22:27)
[2019-12-15 23:57] LABS: Glucose,Whole Blood 158 mg/dL (75-99)
[2019-12-16] MEDS: PROPOFOL 1,000 MG in EMPTY BAG 1 BAG IV SCH ×11 (01:40→23:32)
[2019-12-16 01:48] LABS: Glucose,Whole Blood 177 mg/dL (75-99)
[2019-12-16] MEDS: fentaNYL (PF) 1,000 MCG in SODIUM CHLORIDE 0.9% 80 ML IV SCH ×2 (03:09→15:32)
[2019-12-16] MEDS: SODIUM CHLORIDE 0.9% 1,000 ML IV SCH ×2 (03:10→23:31)
[2019-12-16 04:39] LABS: Glucose,Whole Blood 144 mg/dL (75-99)
[2019-12-16 04:54] LABS: Basophils % (A) 0 %; Eosinophils % (A) 0 %; HCT 30.4 % (34.0-46.0); HGB 9.3 gm/dL (11.4-16.0); Hypochromasia Marked; Lymphocytes # (A) 0.7 k/uL (1.0-4.8); Lymphocytes % (A) 16 %; MCH 25.5 pg (25.0-35.0); MCHC 30.7 g/dL (31.0-37.0); MCV 83.1 fL (80.0-100.0); Mean Platelet Volume 8.8; Monocytes # (A) 0.3 k/uL (0-1.0); Monocytes % (A) 6 %; Neutrophils # (A) 3.2 k/uL (1.3-7.7); Neutrophils % (A) 76 %; Platelet Count 205 k/uL (150-450); Poikilocytosis Slight; RBC 3.66 m/uL (3.80-5.40); RDW 15.7 % (11.5-15.5); WBC 4.3 k/uL (3.8-10.6)
[2019-12-16 05:01] LABS: Albumin 2.5 g/dL (3.5-5.0); C Reactive Protein 58.8 mg/L (<10.0); Calcium 8.2 mg/dL (8.4-10.2); Potassium 3.8 mmol/L (3.5-5.1); Total Bilirubin 0.3 mg/dL (0.2-1.3)
[2019-12-16] MEDS ORDERED: Potassium Replacement Protocol 1 EACH MISC MISCELLANE PRN (05:40)
[2019-12-16] MEDS ORDERED: POTASSIUM BICARBONATE/CIT AC 20 MEQ TABLET.EFF NG-TUBE SCH (06:00)
[2019-12-16 06:09] LABS: Glucose,Whole Blood 132 mg/dL (75-99)
--- NOTE | 2019-12-16 06:54 | XR ---
EXAMINATION TYPE: XR chest 1V portable DATE OF EXAM: 12/16/2019 CLINICAL HISTORY: Difficulty breathing progress study. TECHNIQUE: Single AP portable upright view of the chest is obtained. COMPARISON: Chest x-ray from one day earlier and older studies. FINDINGS: Stable endotracheal tube, orogastric tube, and right internal jugular central venous [address] ter with tip short of the SVC likely in right internal jugular vein. Stable mild cardiomegaly with di ffuse bilateral opacities and more central consolidations with air bronchograms. No large pleural eff usion or pneumothorax. Osseous structures are intact. IMPRESSION: Persistent mild cardiomegaly with bilateral multifocal infiltrates and/or edema with rela tive sparing of the left upper lung. No significant change from one day earlier.
[2019-12-16 07:10] LABS: Glucose,Whole Blood 132 mg/dL (75-99)
[2019-12-16 07:26] LABS: ABG Base Excess -1.6 mmol/L; ABG HCO3 24 mmol/L (21-25); ABG Oxygen Saturation 93.1 % (94-97); ABG PCO2 46 mmHg (35-45); ABG PH 7.33 (7.35-7.45); ABG PO2 73 mmHg (83-108); ABG TCO2 26 mmol/L (19-24)
[2019-12-16 07:58] LABS: Allen Test Performed? no
[2019-12-16] MEDS: HYDROCORTISONE SUCCINATE 100 MG/2 ML VIAL IV SCH ×3 (07:59→23:34)
[2019-12-16] MEDS: AZITHROMYCIN 500 MG in SODIUM CHLORIDE 0.9% 250 ML IVPB SCH (08:01)
[2019-12-16] MEDS: CHLORHEXIDINE GLUCONATE 15 ML CUP MUCOUS MEM SCH ×2 (08:01→20:20)
[2019-12-16] MEDS: HYDROXYCHLOROQUINE ORAL SUSP 200 MG/8 ML ORAL.SYRG PO SCH ×2 (08:01→20:20)
[2019-12-16] MEDS: PANTOPRAZOLE 40 MG/10 ML VIAL IVP SCH (08:01)
[2019-12-16] MEDS: levETIRAcetam ORAL SOLN 500 MG/5 ML CUP PO SCH ×2 (08:03→20:20)
[2019-12-16 09:10] LABS: Glucose,Whole Blood 122 mg/dL (75-99)
[2019-12-16] MEDS: NOREPINEPHRINE 4 MG in SODIUM CHLORIDE 0.9% 250 ML IV SCH (09:54)
[2019-12-16 09:59] LABS: Glucose,Whole Blood 112 mg/dL (75-99)
--- NOTE | 2019-12-16 10:38 | CDI ---
Documentation Clarification Form Date: 12/15/2019 10:41:44 AM From: Alecia Victor RN, CCDS Admit Date: 12/12/2019 02:23:00 PM Patient Name: Marcy Rey Visit Number: [id number] ATTENTION: The Clinical Documentation Specialists (CDI) and [facility] Coding Staff appreciate your assistance in clarifying documentation. Please respond to the clarification below the line at the bottom and electronically sign. The CDI & [facility] Coding staff will review the response and follow-up if needed. Please note: Queries are made part of the Legal Health Record. If you have any questions, please contact the author of this message via ITS. Dr. Thomas Ricketts Please render your opinion on the clinical significance of the patients declining hemoglobin/hematocrit levels. History/Risk Factors: Sepsis and septic shock 2nd to COVID-19 pneumonia, A/C renal failure stage 3, MS, Myasthenia Gravis, COPD, asthma Clinical indicators: 12/11 - 12/14 Hgb: 11.6/9.8/10.3/9.7 4/ - 12/14 Hct: 37.5/33.2/ 34.7/ 30.9 Treatment: 2L IVF Bolus Lab Monitoring AM Daily In order to capture the severity of condition, please clarify if the labs/clinical indicators signify: Chronic blood loss anemia Iron deficiency anemia Drug induced anemia Nutritional anemia Anemia of chronic kidney disease Anemia of chronic disease 9please specify) Unable to determine Other, please specify (Last Form Revision: November 2019) MTDD
[2019-12-16] MEDS: ENOXAPARIN 40 MG/0.4 ML SYRINGE SQ SCH (11:55)
[2019-12-16 12:07] LABS: Glucose,Whole Blood 173 mg/dL (75-99)
--- NOTE | 2019-12-16 12:32 | P.PN ---
Subjective Progress Note Date: 12/16/19 Principal diagnosis: Acute hypoxic respiratory failure secondary to pneumonia. This is a 59-year-old female with history of multiple medical problems including myasthenia gravis, type 2 diabetes, hypertension, GERD without esophagitis, patient is chronically on prednisone for underlying myasthenia gravis. Patient presented to the ER with 1 day history of increased shortness of breath, fever and cough. She was recently exposed to coworkers with proven positive covid 19 infection. Patient had no symptoms of nausea or vomiting, no abdominal pain, no diarrhea, no loss of sensation of smell or taste. In the ER the patient was noted to have a temp of 103. She was tachycardic and the relatively hypoxic. She was placed on a nonrebreather mask, transition to a high flow nasal cannula re-transitioned again to a non-rebreather mask, and she was admitted to the intensive care unit overnight. Patient clearly had significant elevated markers for covid 19 pneumonitis including significantly abnormal chest x-ray showing bilateral interstitial infiltrates. Her LDH was elevated. Her influenza screen was negative. And again her chest x-ray showed multifocal infiltrates. Patient was empirically placed on Actonel Rocephin and Zithromax, and shortly after I saw the patient, check ABG on the patient and clearly showed worsening hypoxic and hypercapnic respiratory failure. Patient was intubated and placed on mechanical ventilation. Patient also required propofol, fentanyl, and small dose of norepinephrine at 0.03 mcg/kg/m. Present ventilatory settings are assist control rate of 24 volume is 450 FiO2 is 100% and PEEP is 16. Peak airway pressure is 35, plateau pressure is 30. Patient was chronically on prednisone and this was switched to Cortef at 50 mg IV push every 8 hours. Reevaluated today on 12/14/19, patient remains on mechanical ventilation. Her ventilatory settings are assist control rate of 24 tidal volume of 400 FiO2 90% I cut it down to 70%, and PEEP is 16. Peak airway pressure is 35 plateau pressure is 33. Patient is positive for covid 19 pneumonitis. She is still requiring a small dose of norepinephrine at 0.02 mcg/kg/m, she is on propofol drip at 75 mcg/kg/m, she is also on fentanyl at 1 mcg/kg/m. Patient is also on insulin at 3 units per hour. Chest x-ray continues to show diffuse interstitial infiltrates. Patient was given a dose of Lasix at 40 mg IV push 1, and I cut down her IV fluid to 50 mL per hour. FiO2 was decreased down to 70%. Labs showed a pO2 of 143 pCO2 of 37 pH of 7.32. WBC count is 13.9 hemoglobin is 10.3 . D-dimer is 0.54. C-reactive protein is down to 265 from 404. Liver enzymes are elevated compared to yesterday. And ferritin level is 285 compared to 94 the day before. Pro-calcitonin is 5.52. Chest x-ray is worse compared to the chest x-ray on admission. Reevaluated today on 12/15/19, patient remains in the ICU, intubated and mechanically ventilated. Patient is positive for covid 19 pneumonitis. Her ventilator settings are assist control rate of 24 tidal volume is 450 FiO2 is 70% and PEEP is 16. Her peak airway pressure is 37 her plateau pressure is 35. Patient is on propofol at 75, fentanyl at 1 mcg/kg/h, insulin at 10 units per hour and she is on 0.9 normal saline at 50 mL per hour. Remains on enteral feeding. Her chest x-ray continues to show significant interstitial pneumo nitis. And possibly some component of fluid overload hence patient was given Lasix 40 mg IV push times one. After reviewing her chest x-ray ABG and respiratory parameters, I cut down her FiO2 to 65% increase her assist control rate of 26 increased the PEEP to 18 and decreased her tidal volume to 400. WBC count is 5.4 hemoglobin is 9.7. PO2 is 79 pCO2 is 41 pH of 7.33. Slight worsening in the area profile noted, creatinine is up to 1.75. LDH is better today 1749 liver enzymes are elevated. C-reactive protein is 157 improved. Pro-calcitonin is 5.52. Chest x-ray again showed worsening bilateral lung infiltrates Reevaluated today on 12/16/19, patient remains intubated and mechanically v entilated. Requiring relatively high FiO2 of 80% and PEEP is 18 assist control rate of 26 and tidal volume is 400. She has a relatively elevated peak airway pressure and plateau pressure is 28. Her blood pressure is stable, she is not requiring any norepinephrine at present she was on levo fed yesterday. Remains on insulin drip, fentanyl at 20 mcg/kg/h, and she is on propofol at 75. Chest x-ray continues to show bilateral infiltrates, improved compared to baseline. CBC is relatively normal. ABG showed a pO2 of 73 pCO2 of 46 pH of 7.33. Renal profile seems to be improving BUN is 38 creatinine is 1.48. Inflammatory markers including C-reactive protein, LDH, ferritin, are all improving. But remain relatively high. Objective - Vital Signs Vital signs: Vital Signs Temp 98.3 F 12/16/19 08:00 Pulse 68 12/16/19 11:00 Resp 26 H 12/16/19 11:00 BP 100/61 12/16/19 11:00 Pulse Ox 95 12/16/19 11:00 Intake & Output 12/15/19 12/16/19 12/16/19 18:59 06:59 18:59 Intake Total 2067.861 7594.884 7213.186 Output Total 2325 735 290 Balance -257.139 443.238 1332.186 Weight 130.6 kg 132.8 kg Intake: IV 593 338 9570 Azithromycin 500 mg In 250 750 Sodium Chloride 0.9% 250 ml @ 250 mls/hr IVPB DAILY [facility] Rx#:[id number] Pressure Bag 36 33 15 Sodium Chloride 0.9% 1, 400 500 250 000 ml @ 50 mls/hr IV . Q20H [facility] Rx#:[id number] Tocilizumab 400 mg In 100 Sodium Chloride 0.9% 80 ml @ 100 mls/hr IV ONCE ONE Rx#:[id number] cefTRIAXone 1 gm In 200 50 150 Sodium Chloride 0.9% 50 ml @ 100 mls/hr IVPB Q24HR [facility] Rx#:[id number] Intake, IV Titration 672.861 867.945 202.186 Amount Insulin Regular 100 unit 112.937 124.668 1.389 In Sodium Chloride 0.9% 100 ml @ Per Protocol IV .Q0M [facility] Rx#:[id number] Propofol 1,000 mg In 465.536 645.673 200.797 Empty Bag 1 bag @ Titrate IV .Q0M [facility] Rx#: [id number] fentaNYL (PF) 1,000 mcg 94.388 97.604 In Sodium Chloride 0.9% 80 ml @ 1 MCG/KG/HR 8.39 mls/hr IV .[id number] [facility] Rx #:[id number] Tube Feeding 319 121 55 Other 90 90 Output: Urine 3097 735 290 Other: Voiding Method Indwelling Catheter Indwelling Catheter Indwelling Catheter ABP, PAP, CO, CI - Last Documented Arterial Blood Pressure 150/73 - Exam Physical Exam: Revealed a 59-year-old female on mechanical ventilation, sedated on propofol and fentanyl. Head: Cushingoid, no neck masses, endotracheal tube and orogastric tube is intact. HEENT:[Neck is supple.] PERRLA, EOMI, no icterus, no JVD. Right IJ central line seems to be intact. Chest: [Diminished breath sounds and crackles at the bases. Cardiac Exam: [Normal S1 and S2, no S3 gallop, no murmur.] Abdomen: [Obese, Soft, nontender, no megaly, no rebound, no guarding, normal bowel sounds.] Extremities: [No clubbing, no edema, no cyanosis.] Neurological Exam: Cannot be assessed, patient is sedated and on mechanical ventilation on propofol and fentanyl. Psychiatric: Could not be assessed. Skin: No rashes. Musculoskeletal: No deformities. - Labs CBC & Chem 7: 12/16/19 04:00 12/16/19 04:00 Labs: Abnormal Lab Results - Last 24 Hours (Table) 12/15/19 12/15/19 12/15/19 Range/Units 13:06 14:23 15:50 RBC (3.80-5.40) m/uL Hgb (11.4-16.0) gm/dL Hct (34.0-46.0) % MCHC (31.0-37.0) g/dL RDW (11.5-15.5) % Lymphocytes # (1.0-4.8) k/uL D-Dimer (<0.60) mg/L FEU ABG pH (7.35-7.45) ABG pCO2 (35-45) mmHg ABG pO2 (83-108) mmHg ABG Total CO2 (19-24) mmol/L ABG O2 Saturation (94-97) % Chloride (98-107) mmol/L BUN (7-17) mg/dL Creatinine (0.52-1.04) mg/dL Glucose (74-99) mg/dL POC Glucose (mg/dL) 190 H 193 H 170 H (75-99) mg/dL Calcium (8.4-10.2) mg/dL AST (14-36) U/L ALT (4-34) U/L Alkaline Phosphatase (38-126) U/L Lactate Dehydrogenase (313-618) U/L Creatine Kinase (30-135) U/L C-Reactive Protein (<10.0) mg/L Total Protein (6.3-8.2) g/dL Albumin (3.5-5.0) g/dL 12/15/19 12/15/19 12/15/19 Range/Units 17:10 18:11 20:28 RBC (3.80-5.40) m/uL Hgb (11.4-16.0) gm/dL Hct (34.0-46.0) % MCHC (31.0-37.0) g/dL RDW (11.5-15.5) % Lymphocytes # (1.0-4.8) k/uL D-Dimer (<0.60) mg/L FEU ABG pH (7.35-7.45) ABG pCO2 (35-45) mmHg ABG pO2 (83-108) mmHg ABG Total CO2 (19-24) mmol/L ABG O2 Saturation (94-97) % Chloride (98-107) mmol/L BUN (7-17) mg/dL Creatinine (0.52-1.04) mg/dL Glucose (74-99) mg/dL POC Glucose (mg/dL) 153 H 147 H 217 H (75-99) mg/dL Calcium (8.4-10.2) mg/dL AST (14-36) U/L ALT (4-34) U/L Alkaline Phosphatase (38-126) U/L Lactate Dehydrogenase (313-618) U/L Creatine Kinase (30-135) U/L C-Reactive Protein (<10.0) mg/L Total Protein (6.3-8.2) g/dL Albumin (3.5-5.0) g/dL 12/15/19 12/15/19 12/16/19 Range/Units 22:12 23:55 01:47 RBC (3.80-5.40) m/uL Hgb (11.4-16.0) gm/dL Hct (34.0-46.0) % MCHC (31.0-37.0) g/dL RDW (11.5-15.5) % Lymphocytes # (1.0-4.8) k/uL D-Dimer (<0.60) mg/L FEU ABG pH (7.35-7.45) ABG pCO2 (35-45) mmHg ABG pO2 (83-108) mmHg ABG Total CO2 (19-24) mmol/L ABG O2 Saturation (94-97) % Chloride (98-107) mmol/L BUN (7-17) mg/dL Creatinine (0.52-1.04) mg/dL Glucose (74-99) mg/dL POC Glucose (mg/dL) 199 H 158 H 177 H (75-99) mg/dL Calcium (8.4-10.2) mg/dL AST (14-36) U/L ALT (4-34) U/L Alkaline Phosphatase (38-126) U/L Lactate Dehydrogenase (313-618) U/L Creatine Kinase (30-135) U/L C-Reactive Protein (<10.0) mg/L Total Protein (6.3-8.2) g/dL Albumin (3.5-5.0) g/dL 12/16/19 12/16/19 12/16/19 Range/Units 04:00 04:00 04:00 RBC 3.66 L (3.80-5.40) m/uL Hgb 9.3 L (11.4-16.0) gm/dL Hct 30.4 L (34.0-46.0) % MCHC 30.7 L (31.0-37.0) g/dL RDW 15.7 H (11.5-15.5) % Lymphocytes # 0.7 L (1.0-4.8) k/uL D-Dimer 1.23 H (<0.60) mg/L FEU ABG pH (7.35-7.45) ABG pCO2 (35-45) mmHg ABG pO2 (83-108) mmHg ABG Total CO2 (19-24) mmol/L ABG O2 Saturation (94-97) % Chloride 109 H (98-107) mmol/L BUN 38 H (7-17) mg/dL Creatinine 1.48 H (0.52-1.04) mg/dL Glucose 136 H (74-99) mg/dL POC Glucose (mg/dL) (75-99) mg/dL Calcium 8.2 L (8.4-10.2) mg/dL AST 141 H (14-36) U/L ALT 183 H (4-34) U/L Alkaline Phosphatase 215 H (38-126) U/L Lactate Dehydrogenase 1521 H (313-618) U/L Creatine Kinase 745 H (30-135) U/L C-Reactive Protein 58.8 H (<10.0) mg/L Total Protein 5.0 L (6.3-8.2) g/dL Albumin 2.5 L (3.5-5.0) g/dL 12/16/19 12/16/19 12/16/19 Range/Units 04:38 06:08 07:09 RBC (3.80-5.40) m/uL Hgb (11.4-16.0) gm/dL Hct (34.0-46.0) % MCHC (31.0-37.0) g/dL RDW (11.5-15.5) % Lymphocytes # (1.0-4.8) k/uL D-Dimer (<0.60) mg/L FEU ABG pH (7.35-7.45) ABG pCO2 (35-45) mmHg ABG pO2 (83-108) mmHg ABG Total CO2 (19-24) mmol/L ABG O2 Saturation (94-97) % Chloride (98-107) mmol/L BUN (7-17) mg/dL Creatinine (0.52-1.04) mg/dL Glucose (74-99) mg/dL POC Glucose (mg/dL) 144 H 132 H 132 H (75-99) mg/dL Calcium (8.4-10.2) mg/dL AST (14-36) U/L ALT (4-34) U/L Alkaline Phosphatase (38-126) U/L Lactate Dehydrogenase (313-618) U/L Creatine Kinase (30-135) U/L C-Reactive Protein (<10.0) mg/L Total Protein (6.3-8.2) g/dL Albumin (3.5-5.0) g/dL 12/16/19 12/16/19 12/16/19 Range/Units 07:18 09:00 09:56 RBC (3.80-5.40) m/uL Hgb (11.4-16.0) gm/dL Hct (34.0-46.0) % MCHC (31.0-37.0) g/dL RDW (11.5-15.5) % Lymphocytes # (1.0-4.8) k/uL D-Dimer (<0.60) mg/L FEU ABG pH 7.33 L (7.35-7.45) ABG pCO2 46 H (35-45) mmHg ABG pO2 73 L (83-108) mmHg ABG Total CO2 26 H (19-24) mmol/L ABG O2 Saturation 93.1 L (94-97) % Chloride (98-107) mmol/L BUN (7-17) mg/dL Creatinine (0.52-1.04) mg/dL Glucose (74-99) mg/dL POC Glucose (mg/dL) 122 H 112 H (75-99) mg/dL Calcium (8.4-10.2) mg/dL AST (14-36) U/L ALT (4-34) U/L Alkaline Phosphatase (38-126) U/L Lactate Dehydrogenase (313-618) U/L Creatine Kinase (30-135) U/L C-Reactive Protein (<10.0) mg/L Total Protein (6.3-8.2) g/dL Albumin (3.5-5.0) g/dL 12/16/19 Range/Units 12:05 RBC (3.80-5.40) m/uL Hgb (11.4-16.0) gm/dL Hct (34.0-46.0) % MCHC (31.0-37.0) g/dL RDW (11.5-15.5) % Lymphocytes # (1.0-4.8) k/uL D-Dimer (<0.60) mg/L FEU ABG pH (7.35-7.45) ABG pCO2 (35-45) mmHg ABG pO2 (83-108) mmHg ABG Total CO2 (19-24) mmol/L ABG O2 Saturation (94-97) % Chloride (98-107) mmol/L BUN (7-17) mg/dL Creatinine (0.52-1.04) mg/dL Glucose (74-99) mg/dL POC Glucose (mg/dL) 173 H (75-99) mg/dL Calcium (8.4-10.2) mg/dL AST (14-36) U/L ALT (4-34) U/L Alkaline Phosphatase (38-126) U/L Lactate Dehydrogenase (313-618) U/L Creatine Kinase (30-135) U/L C-Reactive Protein (<10.0) mg/L Total Protein (6.3-8.2) g/dL Albumin (3.5-5.0) g/dL Microbiology - Last 24 Hours (Table) 12/12/19 11:45 Blood Culture - Preliminary Blood No Growth after 72 hours Assessment and Plan Assessment: Impression: Acute hypoxic and hypercapnic respiratory failure secondary to pneumonitis,covid 19 pneumonitis, Underlying bacterial pneumonia is not entirely ruled out. Especially with elevated pro calcitonin of 5.52. History of myasthenia gravis, in remission however could be contributing to worsening hypercapnic respiratory failure. Acute sepsis and septic shock secondary to pneumonia Type 2 diabetes. Morbid obesity. Recommendation: Continue ventilatory support. Patient remains on relatively high FiO2 and high PEEP. We will titrate FiO2 down to keep O2 saturation above 90%. Continue PEEP at 18 today. Continue nutritional support. Enteral feeding Continue Insulin drip presently on 3 units per hour. GI and DVT prophylaxis. Continue ceftriaxone, Zithromax, hydroxychloroquine, Continue Solu-Cortef at 50 mg IV push every 8 hours. Patient is normally on prednisone at 15 mg daily maintenance for her myasthenia gravis. No need for diuretics today. Decreased IV fluid to 50 mL per hour. Patient is obviously critically ill, Critical care time is 35 minutes Time with Patient: Greater than 30
[2019-12-16 13:20] LABS: Glucose,Whole Blood 175 mg/dL (75-99)
[2019-12-16] MEDS: INSULIN REGULAR 100 UNIT in SODIUM CHLORIDE 0.9% 100 ML IV SCH ×2 (13:58→23:59)
[2019-12-16 14:10] LABS: Glucose,Whole Blood 187 mg/dL (75-99)
--- NOTE | 2019-12-16 15:26 | P.PN ---
Subjective Progress Note Date: 12/16/19 This is a 59-year-old female, history of myasthenia gravis and multiple other medical issues exposed to COVID-19 at work, in a psychiatric [facility] in [place] admitted with bilateral pneumonia, possible Covid-19. Influenza screening negative. Tested positive for coronavirus. LDH trending up currently 1285. Maintained on Rocephin, Plaquenil and Zithromax. D-dimer elevated at 0.63. Overnight patient was maintained on a nonrebreather mask. Chest x-ray this morning reporting worsening persistent multifocal patchy and confluent airspace disease, greatest in the right upper and left lower lobes. Dyspnea worsened and patient was intubated this morning. Currentlly on FiO2 of 90%/+16 of PEEP. Maintained on diprovan, fentanyl drip, Levophed. Evaluated by neurology with recommendations noted and appreciated, no IVIG at this time as patient's myasthenia gravis felt to be in remission. Continues on Cortef. Blood sugars elevated, on insulin drip. ABGs noted, acidotic with pH of 7.28, pCO2 47 pO2 87, bicarb 22, total CO2 24, O2 sat 96.9, base excess -4.4 on 100% FiO2. Mild improvement in renal function -Creatinine down to 1.2. 12/14/2019 remains vent dependent. This morning patient required FiO2 90% and PEEP of 16, further weaned to 70%. Received Actemra. FiO2 further weaned to 60%. Chest x-ray reporting diffuse interstitial infiltrates , pleural effusion unchanged, received a dose of Lasix IV push. ABGs noted. Continues on diprovan, fentanyl and Levophed. Renal function worsening, creatinine up to 1.72. Blood sugars currently better controlled, on insulin drip. LDH up to 5. Ferritin level up to 285.9. 12/15/2019 maintained on Rocephin, Zithromax, Plaquenil , IV push I Cortef. FiO2 down to 65%, PEEP remains at 16. ABGs noted. Chest x-ray reporting stable to worsening bilateral lung infiltrates. Scheduled for another dose of Actemra. Maintained on diprovan, fentanyl, insulin drips in addition to gentle IV fluid hydration. C-reactive protein improved ,157.8. Creatinine kinase up to 1001. LDH better, 1749. LFTs elevated, holding. Renal function minimally worsened, BUN up to 37, creatinine up to 1.7. Afebrile, normal WBC. 12/16/2019 S/P Actemra x 2 doses.Remains vent dependent, FiO2 80%/+10 of PEEP. ABGs noted. Chest x-ray reporting no significant change-improved as per manager mall. Remains off of pressors. Continues on diprovan, fentanyl and insu hank drips. C-reactive protein, LDH, ferritin elevated, but improving. Renal function improving, creatinine down to 1.48. Afebrile. Objective - Vital Signs Vital signs: Vital Signs Temp 98.7 F 12/16/19 12:00 Pulse 65 12/16/19 14:00 Resp 26 H 12/16/19 14:00 BP 124/72 12/16/19 14:00 Pulse Ox 93 L 12/16/19 14:00 Intake & Output 12/15/19 12/16/19 12/16/19 18:59 06:59 18:59 Intake Total 2067.861 5048.488 1057.954 Output Total 2325 735 475 Balance -257.139 812.123 9620.954 Weight 130.6 kg 132.8 kg Intake: IV 185 935 9964 Azithromycin 500 mg In 250 1500 Sodium Chloride 0.9% 250 ml @ 250 mls/hr IVPB DAILY [facility] Rx#:[id number] Pressure Bag 36 33 24 Sodium Chloride 0.9% 1, 400 500 400 000 ml @ 50 mls/hr IV . Q20H [facility] Rx#:[id number] Tocilizumab 400 mg In 100 Sodium Chloride 0.9% 80 ml @ 100 mls/hr IV ONCE ONE Rx#:[id number] cefTRIAXone 1 gm In 200 50 300 Sodium Chloride 0.9% 50 ml @ 100 mls/hr IVPB Q24HR [facility] Rx#:[id number] Intake, IV Titration 672.861 867.945 203.954 Amount Insulin Regular 100 unit 112.937 124.668 3.157 In Sodium Chloride 0.9% 100 ml @ Per Protocol IV .Q0M [facility] Rx#:[id number] Propofol 1,000 mg In 465.536 645.673 200.797 Empty Bag 1 bag @ Titrate IV .Q0M [facility] Rx#: [id number] fentaNYL (PF) 1,000 mcg 94.388 97.604 In Sodium Chloride 0.9% 80 ml @ 1 MCG/KG/HR 8.39 mls/hr IV .[id number] [facility] Rx #:[id number] Tube Feeding 319 121 88 Other 90 90 Output: Urine 2325 735 475 Other: Voiding Method Indwelling Catheter Indwelling Catheter Indwelling Catheter ABP, PAP, CO, CI - Last Documented Arterial Blood Pressure 120/56 - Exam PHYSICAL EXAM: VITAL SIGNS: As above GENERAL: intubated and sedated, on mechanical ventilation with propofol and fentanyl HEENT: Cushingoid ,Conjunctivae normal. eyes normal. NECK: No JVD. No thyroid enlargement. No LNs CARDIOVASCULAR: S1, S2 regular. No murmur RESPIRATION: Breath sounds diminished. Scattered Rhonchi with bibasilar crackles. No wheezing ABDOMEN: Soft, obese, nontender . No guarding. no masses palpable. Bowel sounds heard. LEGS: No edema. no swelling, no cyanosis NERVOUS SYSTEM: Unable to assess patient sedated and on mechanical ventilation Skin: no rash Microbiology 12/12/19 11:45 Blood Blood Culture - Preliminary No Growth after 96 hours 12/12/19 12:40 Urine,Voided Urine Culture - Final - Labs CBC & Chem 7: 12/16/19 04:00 12/16/19 04:00 Labs: Abnormal Lab Results - Last 24 Hours (Table) 12/15/19 12/15/19 12/15/19 Range/Units 15:50 17:10 18:11 RBC (3.80-5.40) m/uL Hgb (11.4-16.0) gm/dL Hct (34.0-46.0) % MCHC (31.0-37.0) g/dL RDW (11.5-15.5) % Lymphocytes # (1.0-4.8) k/uL D-Dimer (<0.60) mg/L FEU ABG pH (7.35-7.45) ABG pCO2 (35-45) mmHg ABG pO2 (83-108) mmHg ABG Total CO2 (19-24) mmol/L ABG O2 Saturation (94-97) % Chloride (98-107) mmol/L BUN (7-17) mg/dL Creatinine (0.52-1.04) mg/dL Glucose (74-99) mg/dL POC Glucose (mg/dL) 170 H 153 H 147 H (75-99) mg/dL Calcium (8.4-10.2) mg/dL AST (14-36) U/L ALT (4-34) U/L Alkaline Phosphatase (38-126) U/L Lactate Dehydrogenase (313-618) U/L Creatine Kinase (30-135) U/L C-Reactive Protein (<10.0) mg/L Total Protein (6.3-8.2) g/dL Albumin (3.5-5.0) g/dL 12/15/19 12/15/19 12/15/19 Range/Units 20:28 22:12 23:55 RBC (3.80-5.40) m/uL Hgb (11.4-16.0) gm/dL Hct (34.0-46.0) % MCHC (31.0-37.0) g/dL RDW (11.5-15.5) % Lymphocytes # (1.0-4.8) k/uL D-Dimer (<0.60) mg/L FEU ABG pH (7.35-7.45) ABG pCO2 (35-45) mmHg ABG pO2 (83-108) mmHg ABG Total CO2 (19-24) mmol/L ABG O2 Saturation (94-97) % Chloride (98-107) mmol/L BUN (7-17) mg/dL Creatinine (0.52-1.04) mg/dL Glucose (74-99) mg/dL POC Glucose (mg/dL) 217 H 199 H 158 H (75-99) mg/dL Calcium (8.4-10.2) mg/dL AST (14-36) U/L ALT (4-34) U/L Alkaline Phosphatase (38-126) U/L Lactate Dehydrogenase (313-618) U/L Creatine Kinase (30-135) U/L C-Reactive Protein (<10.0) mg/L Total Protein (6.3-8.2) g/dL Albumin (3.5-5.0) g/dL 12/16/19 12/16/19 12/16/19 Range/Units 01:47 04:00 04:00 RBC 3.66 L (3.80-5.40) m/uL Hgb 9.3 L (11.4-16.0) gm/dL Hct 30.4 L (34.0-46.0) % MCHC 30.7 L (31.0-37.0) g/dL RDW 15.7 H (11.5-15.5) % Lymphocytes # 0.7 L (1.0-4.8) k/uL D-Dimer (<0.60) mg/L FEU ABG pH (7.35-7.45) ABG pCO2 (35-45) mmHg ABG pO2 (83-108) mmHg ABG Total CO2 (19-24) mmol/L ABG O2 Saturation (94-97) % Chloride 109 H (98-107) mmol/L BUN 38 H (7-17) mg/dL Creatinine 1.48 H (0.52-1.04) mg/dL Glucose 136 H (74-99) mg/dL POC Glucose (mg/dL) 177 H (75-99) mg/dL Calcium 8.2 L (8.4-10.2) mg/dL AST 141 H (14-36) U/L ALT 183 H (4-34) U/L Alkaline Phosphatase 215 H (38-126) U/L Lactate Dehydrogenase 1521 H (313-618) U/L Creatine Kinase 745 H (30-135) U/L C-Reactive Protein 58.8 H (<10.0) mg/L Total Protein 5.0 L (6.3-8.2) g/dL Albumin 2.5 L (3.5-5.0) g/dL 12/16/19 12/16/19 12/16/19 Range/Units 04:00 04:38 06:08 RBC (3.80-5.40) m/uL Hgb (11.4-16.0) gm/dL Hct (34.0-46.0) % MCHC (31.0-37.0) g/dL RDW (11.5-15.5) % Lymphocytes # (1.0-4.8) k/uL D-Dimer 1.23 H (<0.60) mg/L FEU ABG pH (7.35-7.45) ABG pCO2 (35-45) mmHg ABG pO2 (83-108) mmHg ABG Total CO2 (19-24) mmol/L ABG O2 Saturation (94-97) % Chloride (98-107) mmol/L BUN (7-17) mg/dL Creatinine (0.52-1.04) mg/dL Glucose (74-99) mg/dL POC Glucose (mg/dL) 144 H 132 H (75-99) mg/dL Calcium (8.4-10.2) mg/dL AST (14-36) U/L ALT (4-34) U/L Alkaline Phosphatase (38-126) U/L Lactate Dehydrogenase (313-618) U/L Creatine Kinase (30-135) U/L C-Reactive Protein (<10.0) mg/L Total Protein (6.3-8.2) g/dL Albumin (3.5-5.0) g/dL 12/16/19 12/16/19 12/16/19 Range/Units 07:09 07:18 09:00 RBC (3.80-5.40) m/uL Hgb (11.4-16.0) gm/dL Hct (34.0-46.0) % MCHC (31.0-37.0) g/dL RDW (11.5-15.5) % Lymphocytes # (1.0-4.8) k/uL D-Dimer (<0.60) mg/L FEU ABG pH 7.33 L (7.35-7.45) ABG pCO2 46 H (35-45) mmHg ABG pO2 73 L (83-108) mmHg ABG Total CO2 26 H (19-24) mmol/L ABG O2 Saturation 93.1 L (94-97) % Chloride (98-107) mmol/L BUN (7-17) mg/dL Creatinine (0.52-1.04) mg/dL Glucose (74-99) mg/dL POC Glucose (mg/dL) 132 H 122 H (75-99) mg/dL Calcium (8.4-10.2) mg/dL AST (14-36) U/L ALT (4-34) U/L Alkaline Phosphatase (38-126) U/L Lactate Dehydrogenase (313-618) U/L Creatine Kinase (30-135) U/L C-Reactive Protein (<10.0) mg/L Total Protein (6.3-8.2) g/dL Albumin (3.5-5.0) g/dL 12/16/19 12/16/19 12/16/19 Range/Units 09:56 12:05 13:00 RBC (3.80-5.40) m/uL Hgb (11.4-16.0) gm/dL Hct (34.0-46.0) % MCHC (31.0-37.0) g/dL RDW (11.5-15.5) % Lymphocytes # (1.0-4.8) k/uL D-Dimer (<0.60) mg/L FEU ABG pH (7.35-7.45) ABG pCO2 (35-45) mmHg ABG pO2 (83-108) mmHg ABG Total CO2 (19-24) mmol/L ABG O2 Saturation (94-97) % Chloride (98-107) mmol/L BUN (7-17) mg/dL Creatinine (0.52-1.04) mg/dL Glucose (74-99) mg/dL POC Glucose (mg/dL) 112 H 173 H 175 H (75-99) mg/dL Calcium (8.4-10.2) mg/dL AST (14-36) U/L ALT (4-34) U/L Alkaline Phosphatase (38-126) U/L Lactate Dehydrogenase (313-618) U/L Creatine Kinase (30-135) U/L C-Reactive Protein (<10.0) mg/L Total Protein (6.3-8.2) g/dL Albumin (3.5-5.0) g/dL 12/16/19 Range/Units 14:08 RBC (3.80-5.40) m/uL Hgb (11.4-16.0) gm/dL Hct (34.0-46.0) % MCHC (31.0-37.0) g/dL RDW (11.5-15.5) % Lymphocytes # (1.0-4.8) k/uL D-Dimer (<0.60) mg/L FEU ABG pH (7.35-7.45) ABG pCO2 (35-45) mmHg ABG pO2 (83-108) mmHg ABG Total CO2 (19-24) mmol/L ABG O2 Saturation (94-97) % Chloride (98-107) mmol/L BUN (7-17) mg/dL Creatinine (0.52-1.04) mg/dL Glucose (74-99) mg/dL POC Glucose (mg/dL) 187 H (75-99) mg/dL Calcium (8.4-10.2) mg/dL AST (14-36) U/L ALT (4-34) U/L Alkaline Phosphatase (38-126) U/L Lactate Dehydrogenase (313-618) U/L Creatine Kinase (30-135) U/L C-Reactive Protein (<10.0) mg/L Total Protein (6.3-8.2) g/dL Albumin (3.5-5.0) g/dL Microbiology - Last 24 Hours (Table) 12/12/19 11:45 Blood Culture - Preliminary Blood No Growth after 96 hours Assessment and Plan Assessment: -Acute COVID-19 multifocal pneumonia -Acute hypoxic and hypercapnic respiratory failure secondary to the above, ventilator dependent -Acute sepsis with septic shock secondary to #1 -Hypotension, status post pressor dependent, secondary to the above -Diabetes mellitus, type II -Myasthenia gravis, currently in remission, intolerant to [place], monthly treatments with IVIG -History of multiple sclerosis -Morbid obesity, BMI 50.6 -Obstructive sleep apnea, on BiPAP -Diabetes mellitus, uncontrolled, hyperglycemic on insulin drip -Gastroesophageal reflux disease -History of hypertension -Osteoarthritis -Anxiety -Former nicotine dependence -Glaucoma -Seizure disorder -Acute on chronic renal failure, stage III, baseline 1.1 -Chronic diastolic CHF -Anemia of chronic disease, possibly mildly acute secondary to sepsis Plan: Continue on current medication regime , PPI, monitoring and symptomatic treatment. Gentle IV fluid hydration. Continues on Rocephin, Zithromax, hydroxychloroquine, IV solu Cortef as per ID and manager mall. follow closely with multiple consults .Prognosis guarded given multiple complex medical issues. The impression and plan of care has been dictated as directed. : I performed a history and examination of this patient, discussed the same with the dictator. I agree with the dictator's note ,documented as a scribe. Any additional findings or plans will be noted.
[2019-12-16 15:38] LABS: Glucose,Whole Blood 144 mg/dL (75-99)
[2019-12-16] MEDS ORDERED: FUROSEMIDE 10 MG/ML 4 ML VIAL IV STA (16:38)
[2019-12-16] MEDS ORDERED: FUROSEMIDE 10 MG/ML 4 ML VIAL ONE (16:41)
[2019-12-16 16:52] LABS: Glucose,Whole Blood 161 mg/dL (75-99)
--- NOTE | 2019-12-16 18:37 | P.PN ---
Subjective Progress Note Date: 12/16/19 Patient still intubated. Patient is heavily sedated. Cannot assess underlying myasthenic symptoms. According to the nursing report, patient's pulmonary condition has gotten worse. She is requiring 100% O2, and saturating in the high 80s, further desaturating very easily on minimal movements. At present patient is on propofol 60 g and 1.0 fentanyl for sedation. Objective - Vital Signs Vital signs: Vital Signs Temp 98.4 F 12/16/19 16:00 Pulse 72 12/16/19 17:00 Resp 26 H 12/16/19 17:00 BP 109/62 12/16/19 17:00 Pulse Ox 86 L 12/16/19 17:00 Intake & Output 12/15/19 12/16/19 12/16/19 18:59 06:59 18:59 Intake Total 2067.861 2655.672 8208.954 Output Total 2325 735 810 Balance -257.139 612.384 1458.954 Weight 130.6 kg 132.8 kg Intake: IV 631 087 8594 Azithromycin 500 mg In 250 2250 Sodium Chloride 0.9% 250 ml @ 250 mls/hr IVPB DAILY [facility] Rx#:[id number] Pressure Bag 36 33 33 Sodium Chloride 0.9% 1, 400 500 550 000 ml @ 50 mls/hr IV . Q20H [facility] Rx#:[id number] Tocilizumab 400 mg In 100 Sodium Chloride 0.9% 80 ml @ 100 mls/hr IV ONCE ONE Rx#:[id number] cefTRIAXone 1 gm In 200 50 450 Sodium Chloride 0.9% 50 ml @ 100 mls/hr IVPB Q24HR [facility] Rx#:[id number] Intake, IV Titration 672.861 867.945 303.954 Amount Insulin Regular 100 unit 112.937 124.668 3.157 In Sodium Chloride 0.9% 100 ml @ Per Protocol IV .Q0M [facility] Rx#:[id number] Propofol 1,000 mg In 465.536 645.673 200.797 Empty Bag 1 bag @ Titrate IV .Q0M [facility] Rx#: [id number] fentaNYL (PF) 1,000 mcg 94.388 97.604 100 In Sodium Chloride 0.9% 80 ml @ 1 MCG/KG/HR 8.39 mls/hr IV .[id number] [facility] Rx #:[id number] Tube Feeding 319 121 121 Other 90 90 Output: Urine 2325 735 810 Other: Voiding Method Indwelling Catheter Indwelling Catheter Indwelling Catheter # Voids 1 ABP, PAP, CO, CI - Last Documented Arterial Blood Pressure 131/60 - Exam Patient on mechanical ventilation, sedated. - Labs CBC & Chem 7: 12/16/19 04:00 12/16/19 04:00 Labs: Abnormal Lab Results - Last 24 Hours (Table) 12/15/19 12/15/19 12/15/19 Range/Units 20:28 22:12 23:55 RBC (3.80-5.40) m/uL Hgb (11.4-16.0) gm/dL Hct (34.0-46.0) % MCHC (31.0-37.0) g/dL RDW (11.5-15.5) % Lymphocytes # (1.0-4.8) k/uL D-Dimer (<0.60) mg/L FEU ABG pH (7.35-7.45) ABG pCO2 (35-45) mmHg ABG pO2 (83-108) mmHg ABG Total CO2 (19-24) mmol/L ABG O2 Saturation (94-97) % Chloride (98-107) mmol/L BUN (7-17) mg/dL Creatinine (0.52-1.04) mg/dL Glucose (74-99) mg/dL POC Glucose (mg/dL) 217 H 199 H 158 H (75-99) mg/dL Calcium (8.4-10.2) mg/dL AST (14-36) U/L ALT (4-34) U/L Alkaline Phosphatase (38-126) U/L Lactate Dehydrogenase (313-618) U/L Creatine Kinase (30-135) U/L C-Reactive Protein (<10.0) mg/L Total Protein (6.3-8.2) g/dL Albumin (3.5-5.0) g/dL 12/16/19 12/16/19 12/16/19 Range/Units 01:47 04:00 04:00 RBC 3.66 L (3.80-5.40) m/uL Hgb 9.3 L (11.4-16.0) gm/dL Hct 30.4 L (34.0-46.0) % MCHC 30.7 L (31.0-37.0) g/dL RDW 15.7 H (11.5-15.5) % Lymphocytes # 0.7 L (1.0-4.8) k/uL D-Dimer (<0.60) mg/L FEU ABG pH (7.35-7.45) ABG pCO2 (35-45) mmHg ABG pO2 (83-108) mmHg ABG Total CO2 (19-24) mmol/L ABG O2 Saturation (94-97) % Chloride 109 H (98-107) mmol/L BUN 38 H (7-17) mg/dL Creatinine 1.48 H (0.52-1.04) mg/dL Glucose 136 H (74-99) mg/dL POC Glucose (mg/dL) 177 H (75-99) mg/dL Calcium 8.2 L (8.4-10.2) mg/dL AST 141 H (14-36) U/L ALT 183 H (4-34) U/L Alkaline Phosphatase 215 H (38-126) U/L Lactate Dehydrogenase 1521 H (313-618) U/L Creatine Kinase 745 H (30-135) U/L C-Reactive Protein 58.8 H (<10.0) mg/L Total Protein 5.0 L (6.3-8.2) g/dL Albumin 2.5 L (3.5-5.0) g/dL 12/16/19 12/16/19 12/16/19 Range/Units 04:00 04:38 06:08 RBC (3.80-5.40) m/uL Hgb (11.4-16.0) gm/dL Hct (34.0-46.0) % MCHC (31.0-37.0) g/dL RDW (11.5-15.5) % Lymphocytes # (1.0-4.8) k/uL D-Dimer 1.23 H (<0.60) mg/L FEU ABG pH (7.35-7.45) ABG pCO2 (35-45) mmHg ABG pO2 (83-108) mmHg ABG Total CO2 (19-24) mmol/L ABG O2 Saturation (94-97) % Chloride (98-107) mmol/L BUN (7-17) mg/dL Creatinine (0.52-1.04) mg/dL Glucose (74-99) mg/dL POC Glucose (mg/dL) 144 H 132 H (75-99) mg/dL Calcium (8.4-10.2) mg/dL AST (14-36) U/L ALT (4-34) U/L Alkaline Phosphatase (38-126) U/L Lactate Dehydrogenase (313-618) U/L Creatine Kinase (30-135) U/L C-Reactive Protein (<10.0) mg/L Total Protein (6.3-8.2) g/dL Albumin (3.5-5.0) g/dL 12/16/19 12/16/19 12/16/19 Range/Units 07:09 07:18 09:00 RBC (3.80-5.40) m/uL Hgb (11.4-16.0) gm/dL Hct (34.0-46.0) % MCHC (31.0-37.0) g/dL RDW (11.5-15.5) % Lymphocytes # (1.0-4.8) k/uL D-Dimer (<0.60) mg/L FEU ABG pH 7.33 L (7.35-7.45) ABG pCO2 46 H (35-45) mmHg ABG pO2 73 L (83-108) mmHg ABG Total CO2 26 H (19-24) mmol/L ABG O2 Saturation 93.1 L (94-97) % Chloride (98-107) mmol/L BUN (7-17) mg/dL Creatinine (0.52-1.04) mg/dL Glucose (74-99) mg/dL POC Glucose (mg/dL) 132 H 122 H (75-99) mg/dL Calcium (8.4-10.2) mg/dL AST (14-36) U/L ALT (4-34) U/L Alkaline Phosphatase (38-126) U/L Lactate Dehydrogenase (313-618) U/L Creatine Kinase (30-135) U/L C-Reactive Protein (<10.0) mg/L Total Protein (6.3-8.2) g/dL Albumin (3.5-5.0) g/dL 12/16/19 12/16/19 12/16/19 Range/Units 09:56 12:05 13:00 RBC (3.80-5.40) m/uL Hgb (11.4-16.0) gm/dL Hct (34.0-46.0) % MCHC (31.0-37.0) g/dL RDW (11.5-15.5) % Lymphocytes # (1.0-4.8) k/uL D-Dimer (<0.60) mg/L FEU ABG pH (7.35-7.45) ABG pCO2 (35-45) mmHg ABG pO2 (83-108) mmHg ABG Total CO2 (19-24) mmol/L ABG O2 Saturation (94-97) % Chloride (98-107) mmol/L BUN (7-17) mg/dL Creatinine (0.52-1.04) mg/dL Glucose (74-99) mg/dL POC Glucose (mg/dL) 112 H 173 H 175 H (75-99) mg/dL Calcium (8.4-10.2) mg/dL AST (14-36) U/L ALT (4-34) U/L Alkaline Phosphatase (38-126) U/L Lactate Dehydrogenase (313-618) U/L Creatine Kinase (30-135) U/L C-Reactive Protein (<10.0) mg/L Total Protein (6.3-8.2) g/dL Albumin (3.5-5.0) g/dL 12/16/19 12/16/19 12/16/19 Range/Units 14:08 15:30 16:49 RBC (3.80-5.40) m/uL Hgb (11.4-16.0) gm/dL Hct (34.0-46.0) % MCHC (31.0-37.0) g/dL RDW (11.5-15.5) % Lymphocytes # (1.0-4.8) k/uL D-Dimer (<0.60) mg/L FEU ABG pH (7.35-7.45) ABG pCO2 (35-45) mmHg ABG pO2 (83-108) mmHg ABG Total CO2 (19-24) mmol/L ABG O2 Saturation (94-97) % Chloride (98-107) mmol/L BUN (7-17) mg/dL Creatinine (0.52-1.04) mg/dL Glucose (74-99) mg/dL POC Glucose (mg/dL) 187 H 144 H 161 H (75-99) mg/dL Calcium (8.4-10.2) mg/dL AST (14-36) U/L ALT (4-34) U/L Alkaline Phosphatase (38-126) U/L Lactate Dehydrogenase (313-618) U/L Creatine Kinase (30-135) U/L C-Reactive Protein (<10.0) mg/L Total Protein (6.3-8.2) g/dL Albumin (3.5-5.0) g/dL Microbiology - Last 24 Hours (Table) 12/12/19 11:45 Blood Culture - Preliminary Blood No Growth after 96 hours Assessment and Plan Assessment: * Myasthenia gravis, currently in remission. Patient is status post treatment with IVIG about a month ago for myasthenia gravis exacerbation. * Acute multifocal pneumonia, due to Covid-19. Patient clinically worse. * Diabetes poorly controlled * Obesity Plan: * Patient's myasthenia gravis is in remission at this time. Examination limited due to patient being sedated. * Treatment of COVID as per ID and critical care. Patient clinically worse, as per nursing report. * If she develops any signs of myasthenia gravis exacerbation, after resolution of pneumonia, we will consider treatment with IVIG. * Your medical management. * Neurology coverage not available on the weekend.
[2019-12-16 18:38] LABS: Glucose,Whole Blood 161 mg/dL (75-99)
[2019-12-16 19:44] LABS: Glucose,Whole Blood 189 mg/dL (75-99)
[2019-12-16 22:11] LABS: Glucose,Whole Blood 162 mg/dL (75-99)
--- NOTE | 2019-12-16 22:41 | PN ---
PROGRESS NOTE DATE OF SERVICE: 12/16/2019 REASON FOR FOLLOWUP: Acute COVID-19 pneumonia. INTERVAL HISTORY: The patient is currently afebrile. The patient is hemodynamically stable, not requiring any pressor support. However, the patient did have worsening respiratory status and was requiring up to 90% of FiO2. No vomiting or any diarrhea has been reported by the nursing staff. The patient is currently intubated on the vent and unable to provide any history. PHYSICAL EXAMINATION: Blood pressure 149/69 with a pulse of 63, temperature 98.2. She is 100% on 90% FiO2. General description is a middle-aged female intubated on the vent. RESPIRATORY SYSTEM: Unlabored breathing with decreased intensity of breath sounds. No wheeze. HEART: S1, S2. Regular rate and rhythm. ABDOMEN: Soft. No tenderness. LABS: Hemoglobin 9.3, white count of 4.3. BUN of 38, creatinine 1.48. DIAGNOSTIC IMPRESSION AND PLAN: Patient with acute respiratory failure which is likely multifactorial in this patient who did have a component of acute COVID-19 pneumonia. The patient seems to have some worsening of the respiratory status. X-ray did not show any worsening, though. The patient is covered with Plaquenil, Zithromax; to continue and will monitor her clinical course closely. MMODL / IJN: [id number] /
[2019-12-16 23:54] LABS: Glucose,Whole Blood 141 mg/dL (75-99)
[2019-12-17 01:47] LABS: Glucose,Whole Blood 127 mg/dL (75-99)
[2019-12-17] MEDS: PROPOFOL 1,000 MG in EMPTY BAG 1 BAG IV SCH ×11 (02:11→22:46)
[2019-12-17 03:59] LABS: Glucose,Whole Blood 161 mg/dL (75-99)
[2019-12-17] MEDS: fentaNYL (PF) 1,000 MCG in SODIUM CHLORIDE 0.9% 80 ML IV SCH ×2 (04:53→13:05)
[2019-12-17 05:05] LABS: Glucose,Whole Blood 165 mg/dL (75-99)
[2019-12-17 05:25] LABS: HCT 30.5 % (34.0-46.0); HGB 9.6 gm/dL (11.4-16.0); Hypochromasia Marked; MCHC 31.5 g/dL (31.0-37.0); MCV 82.6 fL (80.0-100.0); Mean Platelet Volume 8.4; Platelet Count 240 k/uL (150-450); Poikilocytosis Slight; RBC 3.69 m/uL (3.80-5.40); RDW 15.6 % (11.5-15.5); WBC 6.2 k/uL (3.8-10.6)
[2019-12-17 05:38] LABS: Albumin 2.6 g/dL (3.5-5.0); C Reactive Protein 34.2 mg/L (<10.0); Calcium 8.2 mg/dL (8.4-10.2); Potassium 3.4 mmol/L (3.5-5.1); Total Bilirubin 0.3 mg/dL (0.2-1.3); Total Protein 5.1 g/dL (6.3-8.2)
[2019-12-17 06:36] LABS: ABG Base Excess 0.9 mmol/L; ABG HCO3 25 mmol/L (21-25); ABG Oxygen Saturation 96.9 % (94-97); ABG PCO2 38 mmHg (35-45); ABG PH 7.43 (7.35-7.45); ABG PO2 85 mmHg (83-108); ABG TCO2 26 mmol/L (19-24)
[2019-12-17] MEDS: NOREPINEPHRINE 4 MG in SODIUM CHLORIDE 0.9% 250 ML IV SCH ×2 (06:40→19:50)
[2019-12-17 06:42] LABS: Glucose,Whole Blood 134 mg/dL (75-99)
[2019-12-17] MEDS: POTASSIUM BICARBONATE/CIT AC 20 MEQ TABLET.EFF NG-TUBE SCH ×4 (06:53→18:10)
--- NOTE | 2019-12-17 06:54 | XR ---
EXAMINATION TYPE: XR chest 1V portable DATE OF EXAM: 12/17/2019 HISTORY: Tube placement. REFERENCE: Previous study dated 12/16/2019. FINDINGS: The patient is ET tube and NG tube remain in place, unchanged in appearance. There appears to be a right internal jugular catheter which is still within the jugular vein. There is worsening opacity of both hemithoraces. This may be due to worsening airspace disease, layer ing fluid or combination of the above. The heart size is obscured. IMPRESSION: WORSENING OPACITY OF BOTH HEMITHORACES.
[2019-12-17] MEDS: HYDROCORTISONE SUCCINATE 100 MG/2 ML VIAL IV SCH ×3 (08:29→23:55)
[2019-12-17 08:44] LABS: Glucose,Whole Blood 127 mg/dL (75-99)
[2019-12-17] MEDS: CHLORHEXIDINE GLUCONATE 15 ML CUP MUCOUS MEM SCH ×2 (08:58→19:48)
[2019-12-17] MEDS: FUROSEMIDE 10 MG/ML 4 ML VIAL IV SCH ×2 (08:58→19:48)
[2019-12-17] MEDS: PANTOPRAZOLE 40 MG/10 ML VIAL IVP SCH (08:58)
[2019-12-17] MEDS: levETIRAcetam ORAL SOLN 500 MG/5 ML CUP PO SCH ×2 (08:59→19:49)
[2019-12-17] MEDS: HYDROXYCHLOROQUINE ORAL SUSP 200 MG/8 ML ORAL.SYRG PO SCH (08:59)
[2019-12-17] MEDS: AZITHROMYCIN 500 MG in SODIUM CHLORIDE 0.9% 250 ML IVPB SCH (08:59)
[2019-12-17] MEDS: ENOXAPARIN 40 MG/0.4 ML SYRINGE SQ SCH (08:59)
[2019-12-17 10:33] LABS: Glucose,Whole Blood 175 mg/dL (75-99)
[2019-12-17 11:12] LABS: Ferritin 165.8 ng/mL (10.0-291.0)
[2019-12-17 12:05] LABS: Glucose,Whole Blood 174 mg/dL (75-99)
--- NOTE | 2019-12-17 12:44 | P.PN ---
Subjective Progress Note Date: 12/17/19 Principal diagnosis: Acute hypoxic respiratory failure secondary to pneumonia. This is a 59-year-old female with history of multiple medical problems including myasthenia gravis, type 2 diabetes, hypertension, GERD without esophagitis, patient is chronically on prednisone for underlying myasthenia gravis. Patient presented to the ER with 1 day history of increased shortness of breath, fever and cough. She was recently exposed to coworkers with proven positive covid 19 infection. Patient had no symptoms of nausea or vomiting, no abdominal pain, no diarrhea, no loss of sensation of smell or taste. In the ER the patient was noted to have a temp of 103. She was tachycardic and the relatively hypoxic. She was placed on a nonrebreather mask, transition to a high flow nasal cannula re-transitioned again to a non-rebreather mask, and she was admitted to the intensive care unit overnight. Patient clearly had significant elevated markers for covid 19 pneumonitis including significantly abnormal chest x-ray showing bilateral interstitial infiltrates. Her LDH was elevated. Her influenza screen was negative. And again her chest x-ray showed multifocal infiltrates. Patient was empirically placed on Actonel Rocephin and Zithromax, and shortly after I saw the patient, check ABG on the patient and clearly showed worsening hypoxic and hypercapnic respiratory failure. Patient was intubated and placed on mechanical ventilation. Patient also required propofol, fentanyl, and small dose of norepinephrine at 0.03 mcg/kg/m. Present ventilatory settings are assist control rate of 24 volume is 450 FiO2 is 100% and PEEP is 16. Peak airway pressure is 35, plateau pressure is 30. Patient was chronically on prednisone and this was switched to Cortef at 50 mg IV push every 8 hours. Reevaluated today on 12/14/19, patient remains on mechanical ventilation. Her ventilatory settings are assist control rate of 24 tidal volume of 400 FiO2 90% I cut it down to 70%, and PEEP is 16. Peak airway pressure is 35 plateau pressure is 33. Patient is positive for covid 19 pneumonitis. She is still requiring a small dose of norepinephrine at 0.02 mcg/kg/m, she is on propofol drip at 75 mcg/kg/m, she is also on fentanyl at 1 mcg/kg/m. Patient is also on insulin at 3 units per hour. Chest x-ray continues to show diffuse interstitial infiltrates. Patient was given a dose of Lasix at 40 mg IV push 1, and I cut down her IV fluid to 50 mL per hour. FiO2 was decreased down to 70%. Labs showed a pO2 of 143 pCO2 of 37 pH of 7.32. WBC count is 13.9 hemoglobin is 10.3 . D-dimer is 0.54. C-reactive protein is down to 265 from 404. Liver enzymes are elevated compared to yesterday. And ferritin level is 285 compared to 94 the day before. Pro-calcitonin is 5.52. Chest x-ray is worse compared to the chest x-ray on admission. Reevaluated today on 12/15/19, patient remains in the ICU, intubated and mechanically ventilated. Patient is positive for covid 19 pneumonitis. Her ventilator settings are assist control rate of 24 tidal volume is 450 FiO2 is 70% and PEEP is 16. Her peak airway pressure is 37 her plateau pressure is 35. Patient is on propofol at 75, fentanyl at 1 mcg/kg/h, insulin at 10 units per hour and she is on 0.9 normal saline at 50 mL per hour. Remains on enteral feeding. Her chest x-ray continues to show significant interstitial pneumo nitis. And possibly some component of fluid overload hence patient was given Lasix 40 mg IV push times one. After reviewing her chest x-ray ABG and respiratory parameters, I cut down her FiO2 to 65% increase her assist control rate of 26 increased the PEEP to 18 and decreased her tidal volume to 400. WBC count is 5.4 hemoglobin is 9.7. PO2 is 79 pCO2 is 41 pH of 7.33. Slight worsening in the area profile noted, creatinine is up to 1.75. LDH is better today 1749 liver enzymes are elevated. C-reactive protein is 157 improved. Pro-calcitonin is 5.52. Chest x-ray again showed worsening bilateral lung infiltrates Reevaluated today on 12/16/19, patient remains intubated and mechanically v entilated. Requiring relatively high FiO2 of 80% and PEEP is 18 assist control rate of 26 and tidal volume is 400. She has a relatively elevated peak airway pressure and plateau pressure is 28. Her blood pressure is stable, she is not requiring any norepinephrine at present she was on levo fed yesterday. Remains on insulin drip, fentanyl at 20 mcg/kg/h, and she is on propofol at 75. Chest x-ray continues to show bilateral infiltrates, improved compared to baseline. CBC is relatively normal. ABG showed a pO2 of 73 pCO2 of 46 pH of 7.33. Renal profile seems to be improving BUN is 38 creatinine is 1.48. Inflammatory markers including C-reactive protein, LDH, ferritin, are all improving. But remain relatively high. Reevaluated today on 12/17/19, patient remains in the ICU, intubated and mechanically ventilated. Yesterday, patient desaturated in spite of being on 100% FiO2, and high PEEP of 18. Hence I recommended a prone position patient was prone yesterday until this morning. Remains in prone position, remains on ventilatory support. Her ventilator settings are assist control rate of 26, volume is 400 FiO2 is 50% PEEP is still at 18. Her peak airway pressure is 44 her plateau pressure is 30. ABG showed a pO2 of 85 pCO2 of 38 pH of 7.43. Patient remains on propofol at 75 mcg/kg/m, and fentanyl at 1 mcg/kg/h. Patient did receive actemra and Plaquenil. Chest x-ray continues to show worsening of her interstitial infiltrates, placed on Lasix at 40 mg IV push every 12 hours. Patient remains in the prone position since last night.her d-dimer today is 1.87.inflammatory markers including C-reactive protein is 34.2 LDH is 1551 and her ferritin is 165.8.slight improvement noted in the markers, however that's not reflected on her chest x-ray appearance. Objective - Vital Signs Vital signs: Vital Signs Temp 99.1 F 12/17/19 09:00 Pulse 67 12/17/19 12:00 Resp 26 H 12/17/19 12:00 BP 111/61 12/17/19 10:00 Pulse Ox 96 12/17/19 12:00 Intake & Output 12/16/19 12/17/19 12/17/19 18:59 06:59 18:59 Intake Total 4413.954 1655.054 609 Output Total 1735 1130 1340 Balance 2678.954 525.054 -731 Weight 130.4 kg 130.4 kg Intake: IV 3987 530 465 Azithromycin 500 mg In 2750 250 Sodium Chloride 0.9% 250 ml @ 250 mls/hr IVPB DAILY [facility] Rx#:[id number] Pressure Bag 39 30 15 Sodium Chloride 0.9% 1, 650 500 150 000 ml @ 50 mls/hr IV . Q20H [facility] Rx#:[id number] cefTRIAXone 1 gm In 550 50 Sodium Chloride 0.9% 50 ml @ 100 mls/hr IVPB Q24HR [facility] Rx#:[id number] Intake, IV Titration 303.954 966.054 100 Amount Insulin Regular 100 unit 3.157 108.070 0 In Sodium Chloride 0.9% 100 ml @ Per Protocol IV .Q0M [facility] Rx#:[id number] Norepinephrine 4 mg In 254 Sodium Chloride 0.9% 250 ml @ 0.05 MCG/KG/MIN 15. 986 mls/hr IV .[id number] [facility] Rx#:[id number] Propofol 1,000 mg In 200.797 503.984 100 Empty Bag 1 bag @ Titrate IV .Q0M [facility] Rx#: [id number] fentaNYL (PF) 1,000 mcg 100 100 In Sodium Chloride 0.9% 80 ml @ 1 MCG/KG/HR 8.39 mls/hr IV .[id number] [facility] Rx #:[id number] Tube Feeding 121 99 44 Other 60 Output: Urine 1735 1130 1340 Other: Voiding Method Indwelling Catheter Indwelling Catheter # Voids 1 ABP, PAP, CO, CI - Last Documented Arterial Blood Pressure 109/81 - Exam Physical Exam: Revealed a 59-year-old female on mechanical ventilation, sedated on propofol and fentanyl.in prone position this morning. Head: Cushingoid, no neck masses, endotracheal tube and orogastric tube is intact. HEENT:[Neck is supple.] PERRLA, EOMI, no icterus, no JVD. Right IJ central line seems to be intact. Chest: [Diminished breath sounds and crackles at the bases. Cardiac Exam: [Normal S1 and S2, no S3 gallop, no murmur.] Abdomen: [Obese, Soft, nontender, no megaly, no rebound, no guarding, normal bowel sounds.] Extremities: [No clubbing, no edema, no cyanosis.] Neurological Exam: Cannot be assessed, patient is sedated and on mechanical ventilation on propofol and fentanyl. Psychiatric: Could not be assessed. Skin: No rashes. Musculoskeletal: No deformities. - Labs CBC & Chem 7: 12/17/19 05:12/17/19 05:10 Labs: Abnormal Lab Results - Last 24 Hours (Table) 12/16/19 12/16/19 12/16/19 Range/Units 13:00 14:08 15:30 RBC (3.80-5.40) m/uL Hgb (11.4-16.0) gm/dL Hct (34.0-46.0) % RDW (11.5-15.5) % D-Dimer (<0.60) mg/L FEU ABG Total CO2 (19-24) mmol/L Potassium (3.5-5.1) mmol/L Chloride (98-107) mmol/L BUN (7-17) mg/dL Creatinine (0.52-1.04) mg/dL Glucose (74-99) mg/dL POC Glucose (mg/dL) 175 H 187 H 144 H (75-99) mg/dL Calcium (8.4-10.2) mg/dL AST (14-36) U/L ALT (4-34) U/L Alkaline Phosphatase (38-126) U/L Lactate Dehydrogenase (313-618) U/L Creatine Kinase (30-135) U/L C-Reactive Protein (<10.0) mg/L Total Protein (6.3-8.2) g/dL Albumin (3.5-5.0) g/dL 12/16/19 12/16/19 12/16/19 Range/Units 16:49 18:36 19:43 RBC (3.80-5.40) m/uL Hgb (11.4-16.0) gm/dL Hct (34.0-46.0) % RDW (11.5-15.5) % D-Dimer (<0.60) mg/L FEU ABG Total CO2 (19-24) mmol/L Potassium (3.5-5.1) mmol/L Chloride (98-107) mmol/L BUN (7-17) mg/dL Creatinine (0.52-1.04) mg/dL Glucose (74-99) mg/dL POC Glucose (mg/dL) 161 H 161 H 189 H (75-99) mg/dL Calcium (8.4-10.2) mg/dL AST (14-36) U/L ALT (4-34) U/L Alkaline Phosphatase (38-126) U/L Lactate Dehydrogenase (313-618) U/L Creatine Kinase (30-135) U/L C-Reactive Protein (<10.0) mg/L Total Protein (6.3-8.2) g/dL Albumin (3.5-5.0) g/dL 12/16/19 12/16/19 12/17/19 Range/Units 22:08 23:53 01:46 RBC (3.80-5.40) m/uL Hgb (11.4-16.0) gm/dL Hct (34.0-46.0) % RDW (11.5-15.5) % D-Dimer (<0.60) mg/L FEU ABG Total CO2 (19-24) mmol/L Potassium (3.5-5.1) mmol/L Chloride (98-107) mmol/L BUN (7-17) mg/dL Creatinine (0.52-1.04) mg/dL Glucose (74-99) mg/dL POC Glucose (mg/dL) 162 H 141 H 127 H (75-99) mg/dL Calcium (8.4-10.2) mg/dL AST (14-36) U/L ALT (4-34) U/L Alkaline Phosphatase (38-126) U/L Lactate Dehydrogenase (313-618) U/L Creatine Kinase (30-135) U/L C-Reactive Protein (<10.0) mg/L Total Protein (6.3-8.2) g/dL Albumin (3.5-5.0) g/dL 12/17/19 12/17/19 12/17/19 Range/Units 03:56 05:03 05:10 RBC (3.80-5.40) m/uL Hgb (11.4-16.0) gm/dL Hct (34.0-46.0) % RDW (11.5-15.5) % D-Dimer (<0.60) mg/L FEU ABG Total CO2 (19-24) mmol/L Potassium 3.4 L (3.5-5.1) mmol/L Chloride 109 H (98-107) mmol/L BUN 36 H (7-17) mg/dL Creatinine 1.26 H (0.52-1.04) mg/dL Glucose 158 H (74-99) mg/dL POC Glucose (mg/dL) 161 H 165 H (75-99) mg/dL Calcium 8.2 L (8.4-10.2) mg/dL AST 93 H (14-36) U/L ALT 152 H (4-34) U/L Alkaline Phosphatase 240 H (38-126) U/L Lactate Dehydrogenase 1551 H (313-618) U/L Creatine Kinase 289 H (30-135) U/L C-Reactive Protein 34.2 H (<10.0) mg/L Total Protein 5.1 L (6.3-8.2) g/dL Albumin 2.6 L (3.5-5.0) g/dL 12/17/19 12/17/19 12/17/19 Range/Units 05:10 05:10 06:32 RBC 3.69 L (3.80-5.40) m/uL Hgb 9.6 L (11.4-16.0) gm/dL Hct 30.5 L (34.0-46.0) % RDW 15.6 H (11.5-15.5) % D-Dimer 1.87 H (<0.60) mg/L FEU ABG Total CO2 26 H (19-24) mmol/L Potassium (3.5-5.1) mmol/L Chloride (98-107) mmol/L BUN (7-17) mg/dL Creatinine (0.52-1.04) mg/dL Glucose (74-99) mg/dL POC Glucose (mg/dL) (75-99) mg/dL Calcium (8.4-10.2) mg/dL AST (14-36) U/L ALT (4-34) U/L Alkaline Phosphatase (38-126) U/L Lactate Dehydrogenase (313-618) U/L Creatine Kinase (30-135) U/L C-Reactive Protein (<10.0) mg/L Total Protein (6.3-8.2) g/dL Albumin (3.5-5.0) g/dL 12/17/19 12/17/19 12/17/19 Range/Units 06:41 08:42 10:32 RBC (3.80-5.40) m/uL Hgb (11.4-16.0) gm/dL Hct (34.0-46.0) % RDW (11.5-15.5) % D-Dimer (<0.60) mg/L FEU ABG Total CO2 (19-24) mmol/L Potassium (3.5-5.1) mmol/L Chloride (98-107) mmol/L BUN (7-17) mg/dL Creatinine (0.52-1.04) mg/dL Glucose (74-99) mg/dL POC Glucose (mg/dL) 134 H 127 H 175 H (75-99) mg/dL Calcium (8.4-10.2) mg/dL AST (14-36) U/L ALT (4-34) U/L Alkaline Phosphatase (38-126) U/L Lactate Dehydrogenase (313-618) U/L Creatine Kinase (30-135) U/L C-Reactive Protein (<10.0) mg/L Total Protein (6.3-8.2) g/dL Albumin (3.5-5.0) g/dL 12/17/19 Range/Units 12:03 RBC (3.80-5.40) m/uL Hgb (11.4-16.0) gm/dL Hct (34.0-46.0) % RDW (11.5-15.5) % D-Dimer (<0.60) mg/L FEU ABG Total CO2 (19-24) mmol/L Potassium (3.5-5.1) mmol/L Chloride (98-107) mmol/L BUN (7-17) mg/dL Creatinine (0.52-1.04) mg/dL Glucose (74-99) mg/dL POC Glucose (mg/dL) 174 H (75-99) mg/dL Calcium (8.4-10.2) mg/dL AST (14-36) U/L ALT (4-34) U/L Alkaline Phosphatase (38-126) U/L Lactate Dehydrogenase (313-618) U/L Creatine Kinase (30-135) U/L C-Reactive Protein (<10.0) mg/L Total Protein (6.3-8.2) g/dL Albumin (3.5-5.0) g/dL Microbiology - Last 24 Hours (Table) 12/12/19 11:45 Blood Culture - Preliminary Blood No Growth after 96 hours Assessment and Plan Assessment: Impression: Acute hypoxic and hypercapnic respiratory failure secondary to pneumonitis,covid 19 pneumonitis, Underlying bacterial pneumonia is not entirely ruled out. Especially with elevated pro calcitonin of 5.52. History of myasthenia gravis, in remission however could be contributing to worsening hypercapnic respiratory failure. Acute sepsis and septic shock secondary to pneumonia Type 2 diabetes. Morbid obesity. Recommendation: Continue ventilatory support. continue PEEP at 18 continue FiO2 is 50%, co ntinue to place the patient intermittently in prone position for 16 hours a day. Continue nutritional support. Enteral feeding Continue Insulin drip GI and DVT prophylaxis. Continue ceftriaxone, Zithromax, hydroxychloroquine,actemra Continue Solu-Cortef at 50 mg IV push every 8 hours. Patient is normally on prednisone at 15 mg daily maintenance for her myasthenia gravis. start patient on Lasix at 40 mg IV push every 12 hours. Decreased IV fluid to 50 mL per hour. Patient is obviously critically ill, Critical care time is 36 minutes Time with Patient: Greater than 30
[2019-12-17] MEDS ORDERED: LACTULOSE 20 GM/30 ML CUP PO ONE (14:06)
[2019-12-17 14:11] LABS: Glucose,Whole Blood 146 mg/dL (75-99)
[2019-12-17 16:14] LABS: Glucose,Whole Blood 133 mg/dL (75-99)
--- NOTE | 2019-12-17 18:14 | PN ---
PROGRESS NOTE DATE OF SERVICE: 12/17/2019 REASON FOR FOLLOWUP: Acute COVID-19 infection. INTERVAL HISTORY: The patient is currently afebrile. Patient is hemodynamically stable, not on any pressor support. FiO2 is currently at 70% and this has been up and down for the last 24 hours. No significant purulent secretions through the ET has been reported by nursing staff or any diarrhea. PHYSICAL EXAMINATION: Blood pressure 106/46, pulse of 71, temp 99.2. She is 98% on 70% FiO2. General description is a middle-aged female intubated on the vent. Respiratory system: Unlabored breathing. Clear to auscultation anteriorly. Heart S1, S2. Regular rate and rhythm. Abdomen soft, no tenderness. LABS: Hemoglobin 9.8, white count 6.2, BUN of 36, creatinine 1.26. DIAGNOSTIC IMPRESSION AND PLAN: Patient with acute respiratory failure which is likely multifactorial in this patient who does have a component of Covid-19 pneumonia. The patient does have underlying currently on Solu-Cortef at 50 mg q8h. May benefit from cutting down the dose of the steroids to help clear the viremia. Will discuss further with Neurology. Currently on Zithromax, Plaquenil and plan to continue and monitor clinical course closely. MMODL / IJN: [id number] /
[2019-12-17 18:16] LABS: Glucose,Whole Blood 149 mg/dL (75-99)
[2019-12-17] MEDS: SODIUM CHLORIDE 0.9% 1,000 ML IV SCH (19:48)
[2019-12-17 20:06] LABS: Glucose,Whole Blood 171 mg/dL (75-99)
[2019-12-17 21:51] LABS: Glucose,Whole Blood 151 mg/dL (75-99)
[2019-12-17] MEDS ORDERED: POTASSIUM BICARBONATE/CIT AC 20 MEQ TABLET.EFF NG-TUBE SCH (22:00)
--- NOTE | 2019-12-17 23:49 | PN ---
PROGRESS NOTE 59-year-old white female remains on the ventilator. She is saturating 96%. Blood pressure 129/59, respiratory rate 26, pulse 79. Labs, ABG are improving. FiO2 60%. Remains on azithromycin, Rocephin. She has been laying prone on the ventilator. She is not on any pressor support. FiO2 is improved. No significant purulent excretions. Lungs are clear. Heart S1, S2. She is resting quiet, unlabored breathing on the vent. Obese white female. BUN 36, creatinine 1.26. White count 6.2, hemoglobin 9.8. Covid-[address] Ramirez recommends cutting down Solu-Cortef which is on 50 q.8h. She remains on Zithromax and Plaquenil. Wait for Dr. Ramirez's recommendations as he is helping in this case. Progress note in the ICU. MMODL / IJN: [id number] /
[2019-12-17 23:59] LABS: Glucose,Whole Blood 112 mg/dL (75-99)
[2019-12-18] MEDS: fentaNYL (PF) 1,000 MCG in SODIUM CHLORIDE 0.9% 80 ML IV SCH ×3 (02:40→21:19)
[2019-12-18 03:24] LABS: Glucose,Whole Blood 132 mg/dL (75-99)
[2019-12-18 04:23] LABS: HCT 32.5 % (34.0-46.0); HGB 10.4 gm/dL (11.4-16.0); Hypochromasia Marked; MCH 26.5 pg (25.0-35.0); MCHC 32.1 g/dL (31.0-37.0); MCV 82.7 fL (80.0-100.0); Mean Platelet Volume 7.9; Platelet Count 260 k/uL (150-450); Poikilocytosis Slight; RBC 3.93 m/uL (3.80-5.40); RDW 15.8 % (11.5-15.5); WBC 8.1 k/uL (3.8-10.6)
[2019-12-18 04:36] LABS: Albumin 2.9 g/dL (3.5-5.0); C Reactive Protein 22.5 mg/L (<10.0); Calcium 8.2 mg/dL (8.4-10.2); Potassium 3.4 mmol/L (3.5-5.1); Total Bilirubin 0.3 mg/dL (0.2-1.3); Total Protein 5.6 g/dL (6.3-8.2)
[2019-12-18] MEDS: PROPOFOL 1,000 MG in EMPTY BAG 1 BAG IV SCH ×9 (05:15→23:16)
[2019-12-18] MEDS: POTASSIUM BICARBONATE/CIT AC 20 MEQ TABLET.EFF NG-TUBE SCH ×4 (05:16→23:16)
[2019-12-18 05:23] LABS: Glucose,Whole Blood 162 mg/dL (75-99)
[2019-12-18 06:34] LABS: Glucose,Whole Blood 163 mg/dL (75-99)
--- NOTE | 2019-12-18 06:55 | XR ---
EXAMINATION TYPE: XR chest 1V portable DATE OF EXAM: 12/18/2019 HISTORY: Tube placement. REFERENCE: Previous study dated 12/17/2019. FINDINGS: The patient's ET tube and NG tube remain in place, unchanged in appearance. 4 there is technique or reveal there is worsening opacity of both hemithoraces IMPRESSION: CONTINUED WORSENING OPACITY OF BOTH
[2019-12-18 07:54] LABS: ABG Base Excess 6.6 mmol/L; ABG HCO3 30 mmol/L (21-25); ABG Oxygen Saturation 97.2 % (94-97); ABG PCO2 43 mmHg (35-45); ABG PH 7.46 (7.35-7.45); ABG PO2 88 mmHg (83-108); ABG TCO2 32 mmol/L (19-24); Allen Test Performed? Yes
[2019-12-18] MEDS: HYDROCORTISONE SUCCINATE 100 MG/2 ML VIAL IV SCH ×3 (08:07→23:15)
[2019-12-18] MEDS: INSULIN REGULAR 100 UNIT in SODIUM CHLORIDE 0.9% 100 ML IV SCH (08:48)
[2019-12-18] MEDS: AZITHROMYCIN 500 MG in SODIUM CHLORIDE 0.9% 250 ML IVPB SCH (09:02)
[2019-12-18] MEDS: CHLORHEXIDINE GLUCONATE 15 ML CUP MUCOUS MEM SCH ×2 (09:03→19:47)
[2019-12-18] MEDS: FUROSEMIDE 10 MG/ML 4 ML VIAL IV SCH ×2 (09:03→19:47)
[2019-12-18] MEDS: PANTOPRAZOLE 40 MG/10 ML VIAL IVP SCH (09:03)
[2019-12-18] MEDS: levETIRAcetam ORAL SOLN 500 MG/5 ML CUP PO SCH ×2 (09:03→20:51)
[2019-12-18] MEDS: ENOXAPARIN 40 MG/0.4 ML SYRINGE SQ SCH (09:03)
[2019-12-18 10:13] LABS: Glucose,Whole Blood 148 mg/dL (75-99)
[2019-12-18 11:42] LABS: Glucose,Whole Blood 175 mg/dL (75-99)
[2019-12-18] MEDS: NOREPINEPHRINE 4 MG in SODIUM CHLORIDE 0.9% 250 ML IV SCH (12:00)
--- NOTE | 2019-12-18 12:15 | P.PN ---
Subjective Progress Note Date: 12/18/19 Principal diagnosis: Acute hypoxic respiratory failure secondary to pneumonia. This is a 59-year-old female with history of multiple medical problems including myasthenia gravis, type 2 diabetes, hypertension, GERD without esophagitis, patient is chronically on prednisone for underlying myasthenia gravis. Patient presented to the ER with 1 day history of increased shortness of breath, fever and cough. She was recently exposed to coworkers with proven positive covid 19 infection. Patient had no symptoms of nausea or vomiting, no abdominal pain, no diarrhea, no loss of sensation of smell or taste. In the ER the patient was noted to have a temp of 103. She was tachycardic and the relatively hypoxic. She was placed on a nonrebreather mask, transition to a high flow nasal cannula re-transitioned again to a non-rebreather mask, and she was admitted to the intensive care unit overnight. Patient clearly had significant elevated markers for covid 19 pneumonitis including significantly abnormal chest x-ray showing bilateral interstitial infiltrates. Her LDH was elevated. Her influenza screen was negative. And again her chest x-ray showed multifocal infiltrates. Patient was empirically placed on Actonel Rocephin and Zithromax, and shortly after I saw the patient, check ABG on the patient and clearly showed worsening hypoxic and hypercapnic respiratory failure. Patient was intubated and placed on mechanical ventilation. Patient also required propofol, fentanyl, and small dose of norepinephrine at 0.03 mcg/kg/m. Present ventilatory settings are assist control rate of 24 volume is 450 FiO2 is 100% and PEEP is 16. Peak airway pressure is 35, plateau pressure is 30. Patient was chronically on prednisone and this was switched to Cortef at 50 mg IV push every 8 hours. Reevaluated today on 12/14/19, patient remains on mechanical ventilation. Her ventilatory settings are assist control rate of 24 tidal volume of 400 FiO2 90% I cut it down to 70%, and PEEP is 16. Peak airway pressure is 35 plateau pressure is 33. Patient is positive for covid 19 pneumonitis. She is still requiring a small dose of norepinephrine at 0.02 mcg/kg/m, she is on propofol drip at 75 mcg/kg/m, she is also on fentanyl at 1 mcg/kg/m. Patient is also on insulin at 3 units per hour. Chest x-ray continues to show diffuse interstitial infiltrates. Patient was given a dose of Lasix at 40 mg IV push 1, and I cut down her IV fluid to 50 mL per hour. FiO2 was decreased down to 70%. Labs showed a pO2 of 143 pCO2 of 37 pH of 7.32. WBC count is 13.9 hemoglobin is 10.3 . D-dimer is 0.54. C-reactive protein is down to 265 from 404. Liver enzymes are elevated compared to yesterday. And ferritin level is 285 compared to 94 the day before. Pro-calcitonin is 5.52. Chest x-ray is worse compared to the chest x-ray on admission. Reevaluated today on 12/15/19, patient remains in the ICU, intubated and mechanically ventilated. Patient is positive for covid 19 pneumonitis. Her ventilator settings are assist control rate of 24 tidal volume is 450 FiO2 is 70% and PEEP is 16. Her peak airway pressure is 37 her plateau pressure is 35. Patient is on propofol at 75, fentanyl at 1 mcg/kg/h, insulin at 10 units per hour and she is on 0.9 normal saline at 50 mL per hour. Remains on enteral feeding. Her chest x-ray continues to show significant interstitial pneumo nitis. And possibly some component of fluid overload hence patient was given Lasix 40 mg IV push times one. After reviewing her chest x-ray ABG and respiratory parameters, I cut down her FiO2 to 65% increase her assist control rate of 26 increased the PEEP to 18 and decreased her tidal volume to 400. WBC count is 5.4 hemoglobin is 9.7. PO2 is 79 pCO2 is 41 pH of 7.33. Slight worsening in the area profile noted, creatinine is up to 1.75. LDH is better today 1749 liver enzymes are elevated. C-reactive protein is 157 improved. Pro-calcitonin is 5.52. Chest x-ray again showed worsening bilateral lung infiltrates Reevaluated today on 12/16/19, patient remains intubated and mechanically v entilated. Requiring relatively high FiO2 of 80% and PEEP is 18 assist control rate of 26 and tidal volume is 400. She has a relatively elevated peak airway pressure and plateau pressure is 28. Her blood pressure is stable, she is not requiring any norepinephrine at present she was on levo fed yesterday. Remains on insulin drip, fentanyl at 20 mcg/kg/h, and she is on propofol at 75. Chest x-ray continues to show bilateral infiltrates, improved compared to baseline. CBC is relatively normal. ABG showed a pO2 of 73 pCO2 of 46 pH of 7.33. Renal profile seems to be improving BUN is 38 creatinine is 1.48. Inflammatory markers including C-reactive protein, LDH, ferritin, are all improving. But remain relatively high. Reevaluated today on 12/17/19, patient remains in the ICU, intubated and mechanically ventilated. Yesterday, patient desaturated in spite of being on 100% FiO2, and high PEEP of 18. Hence I recommended a prone position patient was prone yesterday until this morning. Remains in prone position, remains on ventilatory support. Her ventilator settings are assist control rate of 26, volume is 400 FiO2 is 50% PEEP is still at 18. Her peak airway pressure is 44 her plateau pressure is 30. ABG showed a pO2 of 85 pCO2 of 38 pH of 7.43. Patient remains on propofol at 75 mcg/kg/m, and fentanyl at 1 mcg/kg/h. Patient did receive actemra and Plaquenil. Chest x-ray continues to show worsening of her interstitial infiltrates, placed on Lasix at 40 mg IV push every 12 hours. Patient remains in the prone position since last night.her d-dimer today is 1.87.inflammatory markers including C-reactive protein is 34.2 LDH is 1551 and her ferritin is 165.8.slight improvement noted in the markers, however that's not reflected on her chest x-ray appearance. Reevaluated today on 12/18/19, patient remains in the ICU, on mechanical ventilation. Her ventilator settings are assist control rate of 26, volume is 400 FiO2 is 50% and PEEP is 18. Patient desaturates easily in a supine position, hence she has been prone for the last 19 hours. And the plan is to place her back in supine position again today. Her ABG today showed a pO2 of 88 pCO2 of 43 pH of 7.46, and again this ABG was done in the prone position. Her chest x-ray is showing worsening interstitial infiltrates bilaterally. Remains on Lasix 40 mg twice a day, IV fluid at 50 mL per hour. Propofol at 75 mcg/kg/m, and she is also on fentanyl. At 1 mcg/kg per hour. Patient is on enteral feeding. And seems to be fairly well tolerated. Chest x-ray is quite concerning to me, but again we have noticed in the last few days that prone position does extremely well to this patient, and her numbers specially her ABG improved significantly in prone position Objective - Vital Signs Vital signs: Vital Signs Temp 99.6 F 12/18/19 08:00 Pulse 76 12/18/19 11:30 Resp 25 H 12/18/19 11:30 BP 121/68 12/18/19 11:30 Pulse Ox 96 12/18/19 11:30 Intake & Output 12/17/19 12/18/19 12/18/19 18:59 06:59 18:59 Intake Total 5339.556 3601.981 601.794 Output Total 2320 1845 900 Balance -801.663 -531.019 -298.206 Weight 130.4 kg 130.3 kg 130.3 kg Intake: IV 836 636 509 Azithromycin 500 mg In 250 250 Sodium Chloride 0.9% 250 ml @ 250 mls/hr IVPB DAILY [facility] Rx#:[id number] Pressure Bag 36 36 9 Sodium Chloride 0.9% 1, 500 600 200 000 ml @ 50 mls/hr IV . Q20H [facility] Rx#:[id number] cefTRIAXone 1 gm In 50 50 Sodium Chloride 0.9% 50 ml @ 100 mls/hr IVPB Q24HR [facility] Rx#:[id number] Intake, IV Titration 501.337 455.981 29.794 Amount Insulin Regular 100 unit 32.539 30.553 29.794 In Sodium Chloride 0.9% 100 ml @ Per Protocol IV .Q0M [facility] Rx#:[id number] Propofol 1,000 mg In 400 325.428 Empty Bag 1 bag @ Titrate IV .Q0M [facility] Rx#: [id number] fentaNYL (PF) 1,000 mcg 68.798 100 In Sodium Chloride 0.9% 80 ml @ 1 MCG/KG/HR 8.39 mls/hr IV .[id number] [facility] Rx #:[id number] Tube Feeding 121 132 33 Other 60 90 30 Output: Urine 2320 1845 900 Other: Voiding Method Indwelling Catheter Indwelling Catheter # Bowel Movements 2 ABP, PAP, CO, CI - Last Documented Arterial Blood Pressure 114/57 - Exam Physical Exam: Revealed a 59-year-old female on mechanical ventilation, sedated on propofol and fentanyl.in prone position Head: Cushingoid, no neck masses, endotracheal tube and orogastric tube is intact. HEENT:[Neck is supple.] PERRLA, EOMI, no icterus, no JVD. Right IJ central line seems to be intact. Chest: [Diminished breath sounds and crackles at the bases. Cardiac Exam: [Normal S1 and S2, no S3 gallop, no murmur.] Abdomen: [Obese, Soft, nontender, no megaly, no rebound, no guarding, normal bowel sounds.] Extremities: [No clubbing, no edema, no cyanosis.] Neurological Exam: Cannot be assessed, patient is sedated and on mechanical ventilation on propofol and fentanyl. Psychiatric: Could not be assessed. Skin: No rashes. Musculoskeletal: No deformities. - Labs CBC & Chem 7: 12/18/19 04:05 12/18/19 04:05 Labs: Abnormal Lab Results - Last 24 Hours (Table) 12/17/19 12/17/19 12/17/19 Range/Units 14:10 16:12 18:15 Hgb (11.4-16.0) gm/dL Hct (34.0-46.0) % RDW (11.5-15.5) % ABG pH (7.35-7.45) ABG HCO3 (21-25) mmol/L ABG Total CO2 (19-24) mmol/L ABG O2 Saturation (94-97) % Potassium (3.5-5.1) mmol/L BUN (7-17) mg/dL Creatinine (0.52-1.04) mg/dL Glucose (74-99) mg/dL POC Glucose (mg/dL) 146 H 133 H 149 H (75-99) mg/dL Calcium (8.4-10.2) mg/dL AST (14-36) U/L ALT (4-34) U/L Alkaline Phosphatase (38-126) U/L Lactate Dehydrogenase (313-618) U/L Creatine Kinase (30-135) U/L C-Reactive Protein (<10.0) mg/L Total Protein (6.3-8.2) g/dL Albumin (3.5-5.0) g/dL 12/17/19 12/17/19 12/17/19 Range/Units 20:04 21:50 23:57 Hgb (11.4-16.0) gm/dL Hct (34.0-46.0) % RDW (11.5-15.5) % ABG pH (7.35-7.45) ABG HCO3 (21-25) mmol/L ABG Total CO2 (19-24) mmol/L ABG O2 Saturation (94-97) % Potassium (3.5-5.1) mmol/L BUN (7-17) mg/dL Creatinine (0.52-1.04) mg/dL Glucose (74-99) mg/dL POC Glucose (mg/dL) 171 H 151 H 112 H (75-99) mg/dL Calcium (8.4-10.2) mg/dL AST (14-36) U/L ALT (4-34) U/L Alkaline Phosphatase (38-126) U/L Lactate Dehydrogenase (313-618) U/L Creatine Kinase (30-135) U/L C-Reactive Protein (<10.0) mg/L Total Protein (6.3-8.2) g/dL Albumin (3.5-5.0) g/dL 12/18/19 12/18/19 12/18/19 Range/Units 03:22 04:05 04:05 Hgb 10.4 L (11.4-16.0) gm/dL Hct 32.5 L (34.0-46.0) % RDW 15.8 H (11.5-15.5) % ABG pH (7.35-7.45) ABG HCO3 (21-25) mmol/L ABG Total CO2 (19-24) mmol/L ABG O2 Saturation (94-97) % Potassium 3.4 L (3.5-5.1) mmol/L BUN 32 H (7-17) mg/dL Creatinine 1.08 H (0.52-1.04) mg/dL Glucose 181 H (74-99) mg/dL POC Glucose (mg/dL) 132 H (75-99) mg/dL Calcium 8.2 L (8.4-10.2) mg/dL AST 101 H (14-36) U/L ALT 149 H (4-34) U/L Alkaline Phosphatase 268 H (38-126) U/L Lactate Dehydrogenase 1819 H (313-618) U/L Creatine Kinase 635 H (30-135) U/L C-Reactive Protein 22.5 H (<10.0) mg/L Total Protein 5.6 L (6.3-8.2) g/dL Albumin 2.9 L (3.5-5.0) g/dL 12/18/19 12/18/19 12/18/19 Range/Units 05:20 06:32 07:49 Hgb (11.4-16.0) gm/dL Hct (34.0-46.0) % RDW (11.5-15.5) % ABG pH 7.46 H (7.35-7.45) ABG HCO3 30 H (21-25) mmol/L ABG Total CO2 32 H (19-24) mmol/L ABG O2 Saturation 97.2 H (94-97) % Potassium (3.5-5.1) mmol/L BUN (7-17) mg/dL Creatinine (0.52-1.04) mg/dL Glucose (74-99) mg/dL POC Glucose (mg/dL) 162 H 163 H (75-99) mg/dL Calcium (8.4-10.2) mg/dL AST (14-36) U/L ALT (4-34) U/L Alkaline Phosphatase (38-126) U/L Lactate Dehydrogenase (313-618) U/L Creatine Kinase (30-135) U/L C-Reactive Protein (<10.0) mg/L Total Protein (6.3-8.2) g/dL Albumin (3.5-5.0) g/dL 12/18/19 12/18/19 Range/Units 09:53 11:40 Hgb (11.4-16.0) gm/dL Hct (34.0-46.0) % RDW (11.5-15.5) % ABG pH (7.35-7.45) ABG HCO3 (21-25) mmol/L ABG Total CO2 (19-24) mmol/L ABG O2 Saturation (94-97) % Potassium (3.5-5.1) mmol/L BUN (7-17) mg/dL Creatinine (0.52-1.04) mg/dL Glucose (74-99) mg/dL POC Glucose (mg/dL) 148 H 175 H (75-99) mg/dL Calcium (8.4-10.2) mg/dL AST (14-36) U/L ALT (4-34) U/L Alkaline Phosphatase (38-126) U/L Lactate Dehydrogenase (313-618) U/L Creatine Kinase (30-135) U/L C-Reactive Protein (<10.0) mg/L Total Protein (6.3-8.2) g/dL Albumin (3.5-5.0) g/dL Microbiology - Last 24 Hours (Table) 12/12/19 11:45 Blood Culture - Preliminary Blood No Growth after 120 hours Assessment and Plan Assessment: Impression: Acute hypoxic and hypercapnic respiratory failure secondary to pneumonitis,covid 19 pneumonitis, Underlying bacterial pneumonia is not entirely ruled out. Especially with elevated pro calcitonin of 5.52. History of myasthenia gravis, in remission however could be contributing to worsening hypercapnic respiratory failure. Acute sepsis and septic shock secondary to pneumonia Type 2 diabetes. Morbid obesity. Recommendation: Continue ventilatory support. continue PEEP at 18 continue FiO2 is 50%, continue placing the patient in prone position at least 16 hours per day. Continue nutritional support. Enteral feeding Continue Insulin drip GI and DVT prophylaxis. Patient is on Lovenox 40 mg subcu daily Continue ceftriaxone, Zithromax, patient finished a course of hydroxychloroquine and actemra Continue Solu-Cortef at 50 mg IV push every 8 hours. Patient is normally on prednisone at 15 mg daily maintenance for her myasthenia gravis. start patient on Lasix at 40 mg IV push every 12 hours. Decreased IV fluid to 50 mL per hour. Patient is obviously critically ill, patient is not ready for any weaning trials Discussed her condition with Dr. Thomas Ricketts who is her admitting physician. Critical care time is 33 minutes Time with Patient: Greater than 30
[2019-12-18 12:54] LABS: Glucose,Whole Blood 164 mg/dL (75-99)
[2019-12-18 14:52] LABS: Glucose,Whole Blood 154 mg/dL (75-99)
[2019-12-18 16:04] LABS: Glucose,Whole Blood 160 mg/dL (75-99)
--- NOTE | 2019-12-18 17:11 | PN ---
PROGRESS NOTE 59-year-old white female whose oxygenation on the ventilator his FiO2 down to 50%, which is lying prone, goes up to 80 to 90% when she lies supine. Maintains on antibiotics, hydroxy quinine, azithromycin, Rocephin. Vasopressors have been stopped. Cardiovascular: S1-S2. Lungs sound clear. GI soft. She is resting comfortably on vent. ICU notes reviewed. Discussed case with Dr. Giordano. Prognosis fair to poor, 20% chance of living through this. We are going to try to get Covid antibodies to give her over the next week sometime when we can get them from the [facility]. Otherwise prognosis continues slow. Slow treatment and hopefully stabilization. ICU time 20 minutes. MMODL / IJN: [id number] /
[2019-12-18 18:17] LABS: Glucose,Whole Blood 160 mg/dL (75-99)
[2019-12-18 20:43] LABS: Glucose,Whole Blood 165 mg/dL (75-99)
[2019-12-18] MEDS: SODIUM CHLORIDE 0.9% 1,000 ML IV SCH (20:54)
--- NOTE | 2019-12-18 22:10 | PN ---
PROGRESS NOTE DATE OF SERVICE: 12/18/2019 REASON FOR FOLLOWUP: Acute Covid-19 pneumonia. INTERVAL HISTORY: The patient is currently afebrile. The patient is hemodynamically stable, not on any pressor support. FiO2 is down to 60% and the patient did tolerate ( ) last night per the nursing staff. No significant diarrhea. Tolerating tube feeds. PHYSICAL EXAMINATION: Blood pressure is 137/66, pulse of 64, temperature 97.9. She is 98% on 60% FiO2. General description is a middle-aged female lying in bed in no distress. Respiratory system: Unlabored breathing, decreased intensity of breath sounds. No wheeze. Heart: S1, S2. Regular rate and rhythm. Abdomen soft, no tenderness. LABS: Hemoglobin is 10.4, white count 28.1. BUN of 32, creatinine 1.08. DIAGNOSTIC IMPRESSION AND PLAN: Patient with acute Covid-19 pneumonia with acute respiratory failure. The patient is currently intubated on the vent. FiO2 is down to 60%. She will continue current broad- spectrum antibiotic therapy. In view of some worsening seen on the chest x-ray, sputum culture will be ordered and antibiotic adjusted further if needed. MMODL / IJN: [id number] /
[2019-12-18 22:17] LABS: Glucose,Whole Blood 135 mg/dL (75-99)
[2019-12-18 23:41] LABS: Glucose,Whole Blood 133 mg/dL (75-99)
[2019-12-19 01:31] LABS: Glucose,Whole Blood 88 mg/dL (75-99)
[2019-12-19] MEDS: NOREPINEPHRINE 4 MG in SODIUM CHLORIDE 0.9% 250 ML IV SCH ×2 (02:25→09:19)
[2019-12-19] MEDS: PROPOFOL 1,000 MG in EMPTY BAG 1 BAG IV SCH ×11 (04:00→23:10)
[2019-12-19 04:12] LABS: Glucose,Whole Blood 186 mg/dL (75-99)
[2019-12-19 04:22] LABS: HGB 9.9 gm/dL (11.4-16.0); Hypochromasia Marked; MCH 26.3 pg (25.0-35.0); MCV 82.3 fL (80.0-100.0); Mean Platelet Volume 8.3; Platelet Count 282 k/uL (150-450); Poikilocytosis Slight; RBC 3.76 m/uL (3.80-5.40); RDW 15.9 % (11.5-15.5)
[2019-12-19 04:33] LABS: Albumin 2.9 g/dL (3.5-5.0); C Reactive Protein 13.5 mg/L (<10.0); Calcium 8.3 mg/dL (8.4-10.2); Total Bilirubin 0.4 mg/dL (0.2-1.3); Total Protein 5.5 g/dL (6.3-8.2)
[2019-12-19 04:59] LABS: ABG Base Excess 8.9 mmol/L; ABG HCO3 32 mmol/L (21-25); ABG Oxygen Saturation 93.3 % (94-97); ABG PCO2 44 mmHg (35-45); ABG PH 7.48 (7.35-7.45); ABG PO2 64 mmHg (83-108); ABG TCO2 34 mmol/L (19-24); Allen Test Performed? Yes
[2019-12-19] MEDS: POTASSIUM BICARBONATE/CIT AC 20 MEQ TABLET.EFF NG-TUBE SCH ×4 (05:19→19:01)
[2019-12-19 05:36] LABS: Glucose,Whole Blood 178 mg/dL (75-99)
[2019-12-19] MEDS: fentaNYL (PF) 1,000 MCG in SODIUM CHLORIDE 0.9% 80 ML IV SCH ×2 (06:28→20:28)
[2019-12-19 07:16] LABS: Glucose,Whole Blood 142 mg/dL (75-99)
--- NOTE | 2019-12-19 07:32 | XR ---
EXAMINATION TYPE: XR chest 1V portable DATE OF EXAM: 12/19/2019 COMPARISON: NONE HISTORY: SOB, Follow Up FINDINGS: Indwelling tubes and catheters are unchanged. Diffuse airspace infiltrates are seen throughout both lung solitario. Correlate for ARDS. Stable appearance of the cardio-mediastinal structures at this time. IMPRESSION: 1. Diffuse airspace infiltrates are seen throughout both lung solitario. Correlate for ARDS. Clinical correlation and follow up until resolution is recommended.
[2019-12-19 08:21] LABS: Glucose,Whole Blood 141 mg/dL (75-99)
[2019-12-19] MEDS: PANTOPRAZOLE 40 MG/10 ML VIAL IVP SCH (08:23)
[2019-12-19] MEDS: CHLORHEXIDINE GLUCONATE 15 ML CUP MUCOUS MEM SCH ×2 (08:24→21:05)
[2019-12-19] MEDS: HYDROCORTISONE SUCCINATE 100 MG/2 ML VIAL IV SCH ×3 (08:24→22:47)
[2019-12-19] MEDS: FUROSEMIDE 10 MG/ML 4 ML VIAL IV SCH ×2 (08:25→21:04)
[2019-12-19] MEDS: levETIRAcetam ORAL SOLN 500 MG/5 ML CUP PO SCH ×2 (08:25→21:05)
[2019-12-19] MEDS: ENOXAPARIN 40 MG/0.4 ML SYRINGE SQ SCH (08:26)
[2019-12-19] MEDS: AZITHROMYCIN 500 MG in SODIUM CHLORIDE 0.9% 250 ML IVPB SCH (08:29)
[2019-12-19] MEDS: ENOXAPARIN 120 MG/0.8 ML SYRINGE SQ SCH ×2 (10:13→22:48)
[2019-12-19 10:56] LABS: Glucose,Whole Blood 189 mg/dL (75-99)
[2019-12-19 11:41] LABS: Glucose,Whole Blood 195 mg/dL (75-99)
--- NOTE | 2019-12-19 13:25 | P.PN ---
Subjective Progress Note Date: 12/19/19 Principal diagnosis: Acute hypoxic respiratory failure secondary to CoVID 19 pneumonitis This is a 59-year-old female with history of multiple medical problems including myasthenia gravis, type 2 diabetes, hypertension, GERD without esophagitis, patient is chronically on prednisone for underlying myasthenia gravis. Patient presented to the ER with 1 day history of increased shortness of breath, fever and cough. She was recently exposed to coworkers with proven positive covid 19 infection. Patient had no symptoms of nausea or vomiting, no abdominal pain, no diarrhea, no loss of sensation of smell or taste. In the ER the patient was noted to have a temp of 103. She was tachycardic and the relatively hypoxic. She was placed on a nonrebreather mask, transition to a high flow nasal cannula re-transitioned again to a non-rebreather mask, and she was admitted to the i ntensive care unit overnight. Patient clearly had significant elevated markers for covid 19 pneumonitis including significantly abnormal chest x-ray showing bilateral interstitial infiltrates. Her LDH was elevated. Her influenza screen was negative. And again her chest x-ray showed multifocal infiltrates. Patient was empirically placed on Actonel Rocephin and Zithromax, and shortly after I sa w the patient, check ABG on the patient and clearly showed worsening hypoxic and hypercapnic respiratory failure. Patient was intubated and placed on mechanical ventilation. Patient also required propofol, fentanyl, and small dose of norepinephrine at 0.03 mcg/kg/m. Present ventilatory settings are assist control rate of 24 volume is 450 FiO2 is 100% and PEEP is 16. Peak airway pressure is 35, plateau pressure is 30. Patient was chronically on prednisone and this was switched to Cortef at 50 mg IV push every 8 hours. Reevaluated today on 12/14/19, patient remains on mechanical ventilation. Her ventilatory settings are assist control rate of 24 tidal volume of 400 FiO2 90% I cut it down to 70%, and PEEP is 16. Peak airway pressure is 35 plateau pressure is 33. Patient is positive for covid 19 pneumonitis. She is still requiring a small dose of norepinephrine at 0.02 mcg/kg/m, she is on propofol drip at 75 mcg/kg/m, she is also on fentanyl at 1 mcg/kg/m. Patient is also on insulin at 3 units per hour. Chest x-ray continues to show diffuse interstitial infiltrates. Patient was given a dose of Lasix at 40 mg IV push 1, and I cut down her IV fluid to 50 mL per hour. FiO2 was decreased down to 70%. Labs showed a pO2 of 143 pCO2 of 37 pH of 7.32. WBC count is 13.9 hemoglobin is 10.3. D-dimer is 0.54. C-reactive protein is down to 265 from 404. Liver enzymes are elevated compared to yesterday. And ferritin level is 285 compared to 94 the day before. Pro-calcitonin is 5.52. Chest x-ray is worse compared to the chest x-ray on admission. Reevaluated today on 12/15/19, patient remains in the ICU, intubated and mechanically ventilated. Patient is positive for covid 19 pneumonitis. Her ventilator settings are assist control rate of 24 tidal volume is 450 FiO2 is 70% and PEEP is 16. Her peak airway pressure is 37 her plateau pressure is 35. Patient is on propofol at 75, fentanyl at 1 mcg/kg/h, insulin at 10 units per hour and she is on 0.9 normal saline at 50 mL per hour. Remains on enteral feeding. Her chest x-ray continues to show significant interstitial pneumonitis. And possibly some component of fluid overload hence patient was given Lasix 40 mg IV push times one. After reviewing her chest x-ray ABG and respiratory parameters, I cut down her FiO2 to 65% increase her assist control rate of 26 increased the PEEP to 18 and decreased her tidal volume to 400. WBC count is 5.4 hemoglobin is 9.7. PO2 is 79 pCO2 is 41 pH of 7.33. Slight worsen ing in the area profile noted, creatinine is up to 1.75. LDH is better today 1749 liver enzymes are elevated. C-reactive protein is 157 improved. Pro- calcitonin is 5.52. Chest x-ray again showed worsening bilateral lung infiltrates Reevaluated today on 12/16/19, patient remains intubated and mechanically ventilated. Requiring relatively high FiO2 of 80% and PEEP is 18 assist control rate of 26 and tidal volume is 400. She has a relatively elevated peak airway pressure and plateau pressure is 28. Her blood pressure is stable, she is not requiring any norepinephrine at present she was on levo fed yesterday. Remains on insulin drip, fentanyl at 20 mcg/kg/h, and she is on propofol at 75. Chest x-ray continues to show bilateral infiltrates, improved compared to baseline. CBC is relatively normal. ABG showed a pO2 of 73 pCO2 of 46 pH of 7.33. Renal profile seems to be improving BUN is 38 creatinine is 1.48. Inflammatory markers including C-reactive protein, LDH, ferritin, are all improving. But remain relatively high. Reevaluated today on 12/17/19, patient remains in the ICU, intubated and mechanically ventilated. Yesterday, patient desaturated in spite of being on 100% FiO2, and high PEEP of 18. Hence I recommended a prone position patient was prone yesterday until this morning. Remains in prone position, remains on ventilatory support. Her ventilator settings are assist control rate of 26, volume is 400 FiO2 is 50% PEEP is still at 18. Her peak airway pressure is 44 her plateau pressure is 30. ABG showed a pO2 of 85 pCO2 of 38 pH of 7.43. Patient remains on propofol at 75 mcg/kg/m, and fentanyl at 1 mcg/kg/h. Patient did receive actemra and Plaquenil. Chest x-ray continues to show worsening of her interstitial infiltrates, placed on Lasix at 40 mg IV push every 12 hours. Patient remains in the prone position since last night.her d-dimer today is 1. 87.inflammatory markers including C-reactive protein is 34.2 LDH is 1551 and her ferritin is 165.8.slight improvement noted in the markers, however that's not reflected on her chest x-ray appearance. Reevaluated today on 12/18/19, patient remains in the ICU, on mechanical ventilation. Her ventilator settings are assist control rate of 26, volume is 400 FiO2 is 50% and PEEP is 18. Patient desaturates easily in a supine position, hence she has been prone for the last 19 hours. And the plan is to place her back in supine position again today. Her ABG today showed a pO2 of 88 pCO2 of 43 pH of 7.46, and again this ABG was done in the prone position. Her chest x-ray is showing worsening interstitial infiltrates bilaterally. Remains on Lasix 40 mg twice a day, IV fluid at 50 mL per hour. Propofol at 75 mcg/kg/m, and she is also on fentanyl. At 1 mcg/kg per hour. Patient is on enteral feeding. And seems to be fairly well tolerated. Chest x-ray is quite concerning to me, but again we have noticed in the last few days that prone position does extremely well to this patient, and her numbers specially her ABG improved significantly in prone position The patient is seen today 12/19/2019 in follow-up in the intensive care unit. She remains intubated on the mechanical ventilator currently with assist-control mode of rate of 26, tidal volume 400, FiO2 50% and a PEEP of 18. Morning blood gases revealed a PaO2 of 64, pCO2 44, pH 7.48. She remains on 0.9 normal saline at 50 MLS per hour. Propofol at 75 mcg/kg/m, fentanyl 1 mg at hour. Insulin drip at 3 units per hour. Vital HP at 12 ML's per hour which is goal. She has been intubated since 12/13/2019. She is being placed in the prone physician for 16 hours a day, 8 hours in supine position. Chest x-ray continues to revealed diffuse airspace infiltrates that correlate with ARDS. Blood, urine cultures revealed no growth. Sputum culture is pending. She has completed her course of Plaquenil. She remains on azithromycin and ceftriaxone. She is on Solu-Cortef 50 mg every 8 hours. She read received 2 doses of Actemra. Objective - Vital Signs Vital signs: Vital Signs Temp 98.2 F 12/19/19 12:00 Pulse 69 12/19/19 13:00 Resp 26 H 12/19/19 13:00 BP 118/63 12/19/19 13:00 Pulse Ox 92 L 12/19/19 13:00 Intake & Output 12/18/19 12/19/19 12/19/19 18:59 06:59 18:59 Intake Total 1210.107 1059.826 1619.324 Output Total 1835 1095 1655 Balance -422.399 373.826 -35.676 Weight 130.3 kg 124 kg Intake: IV 880 689 968 Azithromycin 500 mg In 250 500 Sodium Chloride 0.9% 250 ml @ 250 mls/hr IVPB DAILY [facility] Rx#:[id number] Pressure Bag 30 39 18 Sodium Chloride 0.9% 1, 550 650 300 000 ml @ 50 mls/hr IV . Q20H [facility] Rx#:[id number] cefTRIAXone 1 gm In 50 150 Sodium Chloride 0.9% 50 ml @ 100 mls/hr IVPB Q24HR [facility] Rx#:[id number] Intake, IV Titration 350.601 446.826 165.324 Amount Insulin Regular 100 unit 50.145 38.952 27.220 In Sodium Chloride 0.9% 100 ml @ Per Protocol IV .Q0M [facility] Rx#:[id number] Propofol 1,000 mg In 200.456 238.115 100.489 Empty Bag 1 bag @ Titrate IV .Q0M [facility] Rx#: [id number] fentaNYL (PF) 1,000 mcg 100 169.759 37.615 In Sodium Chloride 0.9% 80 ml @ 1 MCG/KG/HR 8.39 mls/hr IV .[id number] [facility] Rx #:[id number] Tube Feeding 92 243 96 Other 90 90 390 Output: Urine 1835 1095 1655 Other: Voiding Method Indwelling Catheter Indwelling Catheter Indwelling Catheter # Voids 1 # Bowel Movements 2 ABP, PAP, CO, CI - Last Documented Arterial Blood Pressure 112/52 - Exam Physical Exam: Revealed a morbidly obese 59-year-old female on mechanical ventilation, sedated on propofol and fentanyl. Alternating supine and prone positioning. Head: Cushingoid, no neck masses, endotracheal tube and orogastric tube is intact. HEENT: Neck is supple. PERRLA, EOMI, no icterus, no JVD. Right IJ central line seems to be intact. Chest: Diminished breath sounds and crackles at the bases. Cardiac Exam: Normal S1 and S2, no S3 gallop, no murmur. Abdomen: Obese, Soft, nontender, no megaly, no rebound, no guarding, normal bowel sounds. Extremities: No clubbing, no edema, no cyanosis. Neurological Exam: Cannot be assessed, patient is sedated and on mechanical bacilio tilation on propofol and fentanyl. Psychiatric: Could not be assessed. Skin: No rashes. Musculoskeletal: No deformities. - Labs CBC & Chem 7: 12/19/19 04:00 12/19/19 04:00 Labs: Abnormal Lab Results - Last 24 Hours (Table) 12/18/19 12/18/19 12/18/19 Range/Units 14:46 16:03 18:15 RBC (3.80-5.40) m/uL Hgb (11.4-16.0) gm/dL Hct (34.0-46.0) % RDW (11.5-15.5) % D-Dimer (<0.60) mg/L FEU ABG pH (7.35-7.45) ABG pO2 (83-108) mmHg ABG HCO3 (21-25) mmol/L ABG Total CO2 (19-24) mmol/L ABG O2 Saturation (94-97) % Potassium (3.5-5.1) mmol/L Carbon Dioxide (22-30) mmol/L BUN (7-17) mg/dL Glucose (74-99) mg/dL POC Glucose (mg/dL) 154 H 160 H 160 H (75-99) mg/dL Calcium (8.4-10.2) mg/dL AST (14-36) U/L ALT (4-34) U/L Alkaline Phosphatase (38-126) U/L Lactate Dehydrogenase (313-618) U/L Creatine Kinase (30-135) U/L C-Reactive Protein (<10.0) mg/L Total Protein (6.3-8.2) g/dL Albumin (3.5-5.0) g/dL 12/18/19 12/18/19 12/18/19 Range/Units 19:39 20:42 22:15 RBC (3.80-5.40) m/uL Hgb (11.4-16.0) gm/dL Hct (34.0-46.0) % RDW (11.5-15.5) % D-Dimer (<0.60) mg/L FEU ABG pH (7.35-7.45) ABG pO2 (83-108) mmHg ABG HCO3 (21-25) mmol/L ABG Total CO2 (19-24) mmol/L ABG O2 Saturation (94-97) % Potassium 3.2 L (3.5-5.1) mmol/L Carbon Dioxide (22-30) mmol/L BUN (7-17) mg/dL Glucose (74-99) mg/dL POC Glucose (mg/dL) 165 H 135 H (75-99) mg/dL Calcium (8.4-10.2) mg/dL AST (14-36) U/L ALT (4-34) U/L Alkaline Phosphatase (38-126) U/L Lactate Dehydrogenase (313-618) U/L Creatine Kinase (30-135) U/L C-Reactive Protein (<10.0) mg/L Total Protein (6.3-8.2) g/dL Albumin (3.5-5.0) g/dL 12/18/19 12/19/19 12/19/19 Range/Units 23:39 04:00 04:00 RBC 3.76 L (3.80-5.40) m/uL Hgb 9.9 L (11.4-16.0) gm/dL Hct 31.0 L (34.0-46.0) % RDW 15.9 H (11.5-15.5) % D-Dimer 4.36 H (<0.60) mg/L FEU ABG pH (7.35-7.45) ABG pO2 (83-108) mmHg ABG HCO3 (21-25) mmol/L ABG Total CO2 (19-24) mmol/L ABG O2 Saturation (94-97) % Potassium (3.5-5.1) mmol/L Carbon Dioxide (22-30) mmol/L BUN (7-17) mg/dL Glucose (74-99) mg/dL POC Glucose (mg/dL) 133 H (75-99) mg/dL Calcium (8.4-10.2) mg/dL AST (14-36) U/L ALT (4-34) U/L Alkaline Phosphatase (38-126) U/L Lactate Dehydrogenase (313-618) U/L Creatine Kinase (30-135) U/L C-Reactive Protein (<10.0) mg/L Total Protein (6.3-8.2) g/dL Albumin (3.5-5.0) g/dL 12/19/19 12/19/19 12/19/19 Range/Units 04:00 04:06 04:55 RBC (3.80-5.40) m/uL Hgb (11.4-16.0) gm/dL Hct (34.0-46.0) % RDW (11.5-15.5) % D-Dimer (<0.60) mg/L FEU ABG pH 7.48 H (7.35-7.45) ABG pO2 64 L (83-108) mmHg ABG HCO3 32 H (21-25) mmol/L ABG Total CO2 34 H (19-24) mmol/L ABG O2 Saturation 93.3 L (94-97) % Potassium 3.0 L (3.5-5.1) mmol/L Carbon Dioxide 32 H (22-30) mmol/L BUN 30 H (7-17) mg/dL Glucose 180 H (74-99) mg/dL POC Glucose (mg/dL) 186 H (75-99) mg/dL Calcium 8.3 L (8.4-10.2) mg/dL AST 81 H (14-36) U/L ALT 113 H (4-34) U/L Alkaline Phosphatase 228 H (38-126) U/L Lactate Dehydrogenase 1635 H (313-618) U/L Creatine Kinase 492 H (30-135) U/L C-Reactive Protein 13.5 H (<10.0) mg/L Total Protein 5.5 L (6.3-8.2) g/dL Albumin 2.9 L (3.5-5.0) g/dL 12/19/19 12/19/19 12/19/19 Range/Units 05:35 07:15 08:18 RBC (3.80-5.40) m/uL Hgb (11.4-16.0) gm/dL Hct (34.0-46.0) % RDW (11.5-15.5) % D-Dimer (<0.60) mg/L FEU ABG pH (7.35-7.45) ABG pO2 (83-108) mmHg ABG HCO3 (21-25) mmol/L ABG Total CO2 (19-24) mmol/L ABG O2 Saturation (94-97) % Potassium (3.5-5.1) mmol/L Carbon Dioxide (22-30) mmol/L BUN (7-17) mg/dL Glucose (74-99) mg/dL POC Glucose (mg/dL) 178 H 142 H 141 H (75-99) mg/dL Calcium (8.4-10.2) mg/dL AST (14-36) U/L ALT (4-34) U/L Alkaline Phosphatase (38-126) U/L Lactate Dehydrogenase (313-618) U/L Creatine Kinase (30-135) U/L C-Reactive Protein (<10.0) mg/L Total Protein (6.3-8.2) g/dL Albumin (3.5-5.0) g/dL 12/19/19 12/19/19 Range/Units 10:54 11:39 RBC (3.80-5.40) m/uL Hgb (11.4-16.0) gm/dL Hct (34.0-46.0) % RDW (11.5-15.5) % D-Dimer (<0.60) mg/L FEU ABG pH (7.35-7.45) ABG pO2 (83-108) mmHg ABG HCO3 (21-25) mmol/L ABG Total CO2 (19-24) mmol/L ABG O2 Saturation (94-97) % Potassium (3.5-5.1) mmol/L Carbon Dioxide (22-30) mmol/L BUN (7-17) mg/dL Glucose (74-99) mg/dL POC Glucose (mg/dL) 189 H 195 H (75-99) mg/dL Calcium (8.4-10.2) mg/dL AST (14-36) U/L ALT (4-34) U/L Alkaline Phosphatase (38-126) U/L Lactate Dehydrogenase (313-618) U/L Creatine Kinase (30-135) U/L C-Reactive Protein (<10.0) mg/L Total Protein (6.3-8.2) g/dL Albumin (3.5-5.0) g/dL Microbiology - Last 24 Hours (Table) 12/19/19 00:00 Sputum Culture - Preliminary Sputum 12/12/19 11:45 Blood Culture - Final Blood No Growth after 144 hours Assessment and Plan Assessment: 1 Acute hypoxic and hypercapnic respiratory failure secondary to pneumonitis, CoVID 19 pneumonitis, Underlying bacterial pneumonia is not entirely ruled out. 2 History of myasthenia gravis, in remission however could be contributing to worsening hypercapnic respiratory failure. 3 Acute sepsis and septic shock secondary to pneumonia 4 Type 2 diabetes. 5 Morbid obesity. Plan: The patient was seen and evaluated by Dr. Hawthorne Chest x-ray, ABGs and labs reviewed Increase Lovenox to 125 mg subcu every 12 hours Continue current vent settings for now Overall prognosis remains quite guarded and poor Trials with daily interruption of sedation and if possible weaning parameters We'll continue to follow and make further recommendations based on her clinical status. Critical care time 38 minutes I, the cosigning physician, performed a history & physical examination of the patient. Lungs sounds few scattered rhonchi, crackles in the posterior bases. Maintaining good O2 saturations in the 90s on 50% FiO2 on mechanical ventilator. I discussed the assessment and plan of care with my nurse practitioner, Serena Ronquillo. I attest to the above note as dictated by her.
[2019-12-19 14:09] LABS: Glucose,Whole Blood 175 mg/dL (75-99)
--- NOTE | 2019-12-19 15:25 | P.PN ---
Subjective Progress Note Date: 12/19/19 This is a 59-year-old female, history of myasthenia gravis and multiple other medical issues exposed to COVID-19 at work, in a psychiatric [facility] in [place] admitted with bilateral pneumonia, possible Covid-19. Influenza screening negative. Tested positive for coronavirus. LDH trending up currently 1285. Maintained on Rocephin, Plaquenil and Zithromax. D-dimer elevated at 0.63. Overnight patient was maintained on a nonrebreather mask. Chest x-ray this morning reporting worsening persistent multifocal patchy and confluent airspace disease, greatest in the right upper and left lower lobes. Dyspnea worsened and patient was intubated this morning. Currentlly on FiO2 of 90%/+16 of PEEP. Maintained on diprovan, fentanyl drip, Levophed. Evaluated by neurology with recommendations noted and appreciated, no IVIG at this time as patient's myasthenia gravis felt to be in remission. Continues on Cortef. Blood sugars elevated, on insulin drip. ABGs noted, acidotic with pH of 7.28, pCO2 47 pO2 87, bicarb 22, total CO2 24, O2 sat 96.9, base excess -4.4 on 100% FiO2. Mild improvement in renal function -Creatinine down to 1.2. 12/14/2019 remains vent dependent. This morning patient required FiO2 90% and PEEP of 16, further weaned to 70%. Received Actemra. FiO2 further weaned to 60%. Chest x-ray reporting diffuse interstitial infiltrates , pleural effusion unchanged, received a dose of Lasix IV push. ABGs noted. Continues on diprovan, fentanyl and Levophed. Renal function worsening, creatinine up to 1.72. Blood sugars currently better controlled, on insulin drip. LDH up to 5. Ferritin level up to 285.9. 12/15/2019 maintained on Rocephin, Zithromax, Plaquenil , IV push I Cortef. FiO2 down to 65%, PEEP remains at 16. ABGs noted. Chest x-ray reporting stable to worsening bilateral lung infiltrates. Scheduled for another dose of Actemra. Maintained on diprovan, fentanyl, insulin drips in addition to gentle IV fluid hydration. C-reactive protein improved ,157.8. Creatinine kinase up to 1001. LDH better, 1749. LFTs elevated, holding. Renal function minimally worsened, BUN up to 37, creatinine up to 1.7. Afebrile, normal WBC. 12/16/2019 S/P Actemra x 2 doses.Remains vent dependent, FiO2 80%/+10 of PEEP. ABGs noted. Chest x-ray reporting no significant change-improved as per manager document control. Remains off of pressors. Continues on diprovan, fentanyl and insu hank drips. C-reactive protein, LDH, ferritin elevated, but improving. Renal function improving, creatinine down to 1.48. Afebrile. 12/19/2019 S/P Actemra X 2.remains vent dependent with FiO2 of 50% while in prone position; requires 80% once flipped to supine position, PEEP maintained at 18. Continues on insulin, diprovan and fentanyl drips. Gentle IV fluid hydration. ABGs noted. LDH, C-reactive protein, renal function improving. D- dimer up to 4.36. Lovenox dose increased. Continues on Rocephin, Zithromax, Solu-Cortef. Afebrile currently, T-max 99.2. Sputum culture pending Tolerating tube feeds of vital H&P at goal with minimal to no residuals. Objective - Vital Signs Vital signs: Vital Signs Temp 98.2 F 12/19/19 12:00 Pulse 69 12/19/19 13:00 Resp 26 H 12/19/19 13:00 BP 118/63 12/19/19 13:00 Pulse Ox 92 L 12/19/19 13:00 Intake & Output 12/18/19 12/19/19 12/19/19 18:59 06:59 18:59 Intake Total 8902.901 9293.826 1619.324 Output Total 1835 1095 1655 Balance -422.399 373.826 -35.676 Weight 130.3 kg 124 kg Intake: IV 880 689 968 Azithromycin 500 mg In 250 500 Sodium Chloride 0.9% 250 ml @ 250 mls/hr IVPB DAILY [facility] Rx#:[id number] Pressure Bag 30 39 18 Sodium Chloride 0.9% 1, 550 650 300 000 ml @ 50 mls/hr IV . Q20H [facility] Rx#:[id number] cefTRIAXone 1 gm In 50 150 Sodium Chloride 0.9% 50 ml @ 100 mls/hr IVPB Q24HR [facility] Rx#:[id number] Intake, IV Titration 350.601 446.826 165.324 Amount Insulin Regular 100 unit 50.145 38.952 27.220 In Sodium Chloride 0.9% 100 ml @ Per Protocol IV .Q0M [facility] Rx#:[id number] Propofol 1,000 mg In 200.456 238.115 100.489 Empty Bag 1 bag @ Titrate IV .Q0M [facility] Rx#: [id number] fentaNYL (PF) 1,000 mcg 100 169.759 37.615 In Sodium Chloride 0.9% 80 ml @ 1 MCG/KG/HR 8.39 mls/hr IV .[id number] [facility] Rx #:[id number] Tube Feeding 92 243 96 Other 90 90 390 Output: Urine 1835 1095 1655 Other: Voiding Method Indwelling Catheter Indwelling Catheter Indwelling Catheter # Voids 1 # Bowel Movements 2 ABP, PAP, CO, CI - Last Documented Arterial Blood Pressure 112/52 - Exam PHYSICAL EXAM: VITAL SIGNS: As above GENERAL: intubated and sedated, on mechanical ventilation HEENT: Cushingoid ,Conjunctivae normal. eyes normal. NECK: No JVD. No thyroid enlargement. No LNs CARDIOVASCULAR: S1, S2 regular. No murmur RESPIRATION: Breath sounds diminished. Fine bibasilar crackles. No wheezing. ABDOMEN: Soft, obese, nontender. No guarding. no masses palpable. Bowel sounds heard. LEGS: No edema. no swelling, no cyanosis NERVOUS SYSTEM: Unable to assess patient sedated and on mechanical ventilation Skin: no rash Microbiology 12/19/19 00:00 Sputum Sputum Culture - Preliminary 12/12/19 11:45 Blood Blood Culture - Final No Growth after 144 hours 12/12/19 12:40 Urine,Voided Urine Culture - Final - Labs CBC & Chem 7: 12/19/19 04:00 12/19/19 14:11 Labs: Abnormal Lab Results - Last 24 Hours (Table) 12/18/19 12/18/19 12/18/19 Range/Units 14:46 16:03 18:15 RBC (3.80-5.40) m/uL Hgb (11.4-16.0) gm/dL Hct (34.0-46.0) % RDW (11.5-15.5) % D-Dimer (<0.60) mg/L FEU ABG pH (7.35-7.45) ABG pO2 (83-108) mmHg ABG HCO3 (21-25) mmol/L ABG Total CO2 (19-24) mmol/L ABG O2 Saturation (94-97) % Potassium (3.5-5.1) mmol/L Carbon Dioxide (22-30) mmol/L BUN (7-17) mg/dL Glucose (74-99) mg/dL POC Glucose (mg/dL) 154 H 160 H 160 H (75-99) mg/dL Calcium (8.4-10.2) mg/dL AST (14-36) U/L ALT (4-34) U/L Alkaline Phosphatase (38-126) U/L Lactate Dehydrogenase (313-618) U/L Creatine Kinase (30-135) U/L C-Reactive Protein (<10.0) mg/L Total Protein (6.3-8.2) g/dL Albumin (3.5-5.0) g/dL 12/18/19 12/18/19 12/18/19 Range/Units 19:39 20:42 22:15 RBC (3.80-5.40) m/uL Hgb (11.4-16.0) gm/dL Hct (34.0-46.0) % RDW (11.5-15.5) % D-Dimer (<0.60) mg/L FEU ABG pH (7.35-7.45) ABG pO2 (83-108) mmHg ABG HCO3 (21-25) mmol/L ABG Total CO2 (19-24) mmol/L ABG O2 Saturation (94-97) % Potassium 3.2 L (3.5-5.1) mmol/L Carbon Dioxide (22-30) mmol/L BUN (7-17) mg/dL Glucose (74-99) mg/dL POC Glucose (mg/dL) 165 H 135 H (75-99) mg/dL Calcium (8.4-10.2) mg/dL AST (14-36) U/L ALT (4-34) U/L Alkaline Phosphatase (38-126) U/L Lactate Dehydrogenase (313-618) U/L Creatine Kinase (30-135) U/L C-Reactive Protein (<10.0) mg/L Total Protein (6.3-8.2) g/dL Albumin (3.5-5.0) g/dL 12/18/19 12/19/19 12/19/19 Range/Units 23:39 04:00 04:00 RBC 3.76 L (3.80-5.40) m/uL Hgb 9.9 L (11.4-16.0) gm/dL Hct 31.0 L (34.0-46.0) % RDW 15.9 H (11.5-15.5) % D-Dimer 4.36 H (<0.60) mg/L FEU ABG pH (7.35-7.45) ABG pO2 (83-108) mmHg ABG HCO3 (21-25) mmol/L ABG Total CO2 (19-24) mmol/L ABG O2 Saturation (94-97) % Potassium (3.5-5.1) mmol/L Carbon Dioxide (22-30) mmol/L BUN (7-17) mg/dL Glucose (74-99) mg/dL POC Glucose (mg/dL) 133 H (75-99) mg/dL Calcium (8.4-10.2) mg/dL AST (14-36) U/L ALT (4-34) U/L Alkaline Phosphatase (38-126) U/L Lactate Dehydrogenase (313-618) U/L Creatine Kinase (30-135) U/L C-Reactive Protein (<10.0) mg/L Total Protein (6.3-8.2) g/dL Albumin (3.5-5.0) g/dL 12/19/19 12/19/19 12/19/19 Range/Units 04:00 04:06 04:55 RBC (3.80-5.40) m/uL Hgb (11.4-16.0) gm/dL Hct (34.0-46.0) % RDW (11.5-15.5) % D-Dimer (<0.60) mg/L FEU ABG pH 7.48 H (7.35-7.45) ABG pO2 64 L (83-108) mmHg ABG HCO3 32 H (21-25) mmol/L ABG Total CO2 34 H (19-24) mmol/L ABG O2 Saturation 93.3 L (94-97) % Potassium 3.0 L (3.5-5.1) mmol/L Carbon Dioxide 32 H (22-30) mmol/L BUN 30 H (7-17) mg/dL Glucose 180 H (74-99) mg/dL POC Glucose (mg/dL) 186 H (75-99) mg/dL Calcium 8.3 L (8.4-10.2) mg/dL AST 81 H (14-36) U/L ALT 113 H (4-34) U/L Alkaline Phosphatase 228 H (38-126) U/L Lactate Dehydrogenase 1635 H (313-618) U/L Creatine Kinase 492 H (30-135) U/L C-Reactive Protein 13.5 H (<10.0) mg/L Total Protein 5.5 L (6.3-8.2) g/dL Albumin 2.9 L (3.5-5.0) g/dL 12/19/19 12/19/19 12/19/19 Range/Units 05:35 07:15 08:18 RBC (3.80-5.40) m/uL Hgb (11.4-16.0) gm/dL Hct (34.0-46.0) % RDW (11.5-15.5) % D-Dimer (<0.60) mg/L FEU ABG pH (7.35-7.45) ABG pO2 (83-108) mmHg ABG HCO3 (21-25) mmol/L ABG Total CO2 (19-24) mmol/L ABG O2 Saturation (94-97) % Potassium (3.5-5.1) mmol/L Carbon Dioxide (22-30) mmol/L BUN (7-17) mg/dL Glucose (74-99) mg/dL POC Glucose (mg/dL) 178 H 142 H 141 H (75-99) mg/dL Calcium (8.4-10.2) mg/dL AST (14-36) U/L ALT (4-34) U/L Alkaline Phosphatase (38-126) U/L Lactate Dehydrogenase (313-618) U/L Creatine Kinase (30-135) U/L C-Reactive Protein (<10.0) mg/L Total Protein (6.3-8.2) g/dL Albumin (3.5-5.0) g/dL 12/19/19 12/19/19 Range/Units 10:54 11:39 RBC (3.80-5.40) m/uL Hgb (11.4-16.0) gm/dL Hct (34.0-46.0) % RDW (11.5-15.5) % D-Dimer (<0.60) mg/L FEU ABG pH (7.35-7.45) ABG pO2 (83-108) mmHg ABG HCO3 (21-25) mmol/L ABG Total CO2 (19-24) mmol/L ABG O2 Saturation (94-97) % Potassium (3.5-5.1) mmol/L Carbon Dioxide (22-30) mmol/L BUN (7-17) mg/dL Glucose (74-99) mg/dL POC Glucose (mg/dL) 189 H 195 H (75-99) mg/dL Calcium (8.4-10.2) mg/dL AST (14-36) U/L ALT (4-34) U/L Alkaline Phosphatase (38-126) U/L Lactate Dehydrogenase (313-618) U/L Creatine Kinase (30-135) U/L C-Reactive Protein (<10.0) mg/L Total Protein (6.3-8.2) g/dL Albumin (3.5-5.0) g/dL Microbiology - Last 24 Hours (Table) 12/19/19 00:00 Sputum Culture - Preliminary Sputum 12/12/19 11:45 Blood Culture - Final Blood No Growth after 144 hours Assessment and Plan Assessment: -Acute COVID-19 multifocal pneumonia -Acute hypoxic and hypercapnic respiratory failure secondary to the above, ventilator dependent -Acute sepsis with septic shock secondary to #1 -Hypotension, status post pressor dependent, secondary to the above, currently resolved -Diabetes mellitus, type II -Myasthenia gravis, currently in remission, intolerant to [place], monthly treatments with IVIG -History of multiple sclerosis -Morbid obesity, BMI 50.6 -Diabetes mellitus, uncontrolled, hyperglycemic on insulin drip -Gastroesophageal reflux disease -History of hypertension -Osteoarthritis -Anxiety -Former nicotine dependence -Glaucoma -Seizure disorder -Acute on chronic renal failure, stage III, baseline 1.1, improving -Chronic diastolic CHF -Anemia of chronic disease, possibly mildly acute secondary to sepsis Plan: Continue on current medication regime , PPI, monitoring and symptomatic treatment. Maintain IV Solu-Cortef, Zithromax, Rocephin, gentle IV fluid hydration, increased Lovenox. follow closely with multiple consults .Prognosis guarded given multiple complex medical issues. The impression and plan of care has been dictated as directed. : I performed a history and examination of this patient, discussed the same with the dictator. I agree with the dictator's note ,documented as a scribe. Any additional findings or plans will be noted.
[2019-12-19 16:18] LABS: Glucose,Whole Blood 144 mg/dL (75-99)
[2019-12-19] MEDS: INSULIN REGULAR 100 UNIT in SODIUM CHLORIDE 0.9% 100 ML IV SCH (16:25)
[2019-12-19] MEDS ORDERED: Potassium Replacement Protocol 1 EACH MISC MISCELLANE PRN (17:43)
[2019-12-19 18:18] LABS: Glucose,Whole Blood 154 mg/dL (75-99)
[2019-12-19 20:03] LABS: Glucose,Whole Blood 178 mg/dL (75-99)
--- NOTE | 2019-12-19 21:54 | PN ---
PROGRESS NOTE DATE OF SERVICE: 12/19/2019 REASON FOR FOLLOW UP: Acute COVID-19 pneumonia. INTERVAL HISTORY: The patient is currently afebrile. The patient has been up and down as far as her O2 requirements are, currently on 80% FiO2, hemodynamically not on pressor support 80 has been reported or any diarrhea. PHYSICAL EXAMINATION: Blood pressure 152/63 with a pulse of 75. Temperature 98.2. She is 91% on 80% FiO2. General description is a middle-aged female intubated on the vent. Respiratory system: Unlabored breathing, decreased intense breath sounds. No wheeze. HEART: S1, S2. Regular rate and rhythm. Abdomen soft, no tenderness. LABS: Hemoglobin is 9.9, white count 7.0, creatinine 0.92. LDH at 1635, slightly down from 1819 yesterday. DIAGNOSTIC IMPRESSION AND PLAN: Patient with acute COVID-19 pneumonia with acute respiratory failure. The patient currently on Zithromax and has completed her Plaquenil course. Also on steroids and Lovenox with elevated D-dimer that will be continued and we will monitor clinical course closely. Overall prognosis remains to be guarded. MMODL / IJN: [id number] /
[2019-12-19 21:55] LABS: Glucose,Whole Blood 170 mg/dL (75-99)
--- NOTE | 2019-12-19 22:02 | P.PN ---
Subjective Progress Note Date: 12/19/19 Patient still intubated. Patient is heavily sedated. Cannot assess underlying myasthenic symptoms. According to the nursing report, patient's pulmonary condition is somewhat stable over the weekend. At present patient is on propofol 75 g and 1.0 fentanyl for sedation. Objective - Vital Signs Vital signs: Vital Signs Temp 98.2 F 12/19/19 16:00 Pulse 69 12/19/19 21:00 Resp 26 H 12/19/19 21:00 BP 120/65 12/19/19 21:00 Pulse Ox 98 12/19/19 21:00 Intake & Output 12/19/19 12/19/19 12/20/19 06:59 18:59 06:59 Intake Total 9299.349 8816.684 303.924 Output Total 1095 2160 150 Balance 373.826 837.684 153.924 Weight 124 kg Intake: IV 68 1983 159 Azithromycin 500 mg In 1250 Sodium Chloride 0.9% 250 ml @ 250 mls/hr IVPB DAILY [facility] Rx#:[id number] Pressure Bag 39 33 9 Sodium Chloride 0.9% 1, 650 550 150 000 ml @ 50 mls/hr IV . Q20H [facility] Rx#:[id number] cefTRIAXone 1 gm In 150 Sodium Chloride 0.9% 50 ml @ 100 mls/hr IVPB Q24HR [facility] Rx#:[id number] Intake, IV Titration 446.826 426.684 120.924 Amount Insulin Regular 100 unit 38.952 27.490 22.22 In Sodium Chloride 0.9% 100 ml @ Per Protocol IV .Q0M [facility] Rx#:[id number] Propofol 1,000 mg In 238.115 299.194 98.704 Empty Bag 1 bag @ Titrate IV .Q0M [facility] Rx#: [id number] fentaNYL (PF) 1,000 mcg 169.759 100.000 In Sodium Chloride 0.9% 80 ml @ 1 MCG/KG/HR 8.39 mls/hr IV .[id number] [facility] Rx #:[id number] Tube Feeding 243 168 24 Other 90 420 Output: Urine 1095 2160 150 Other: Voiding Method Indwelling Catheter Indwelling Catheter # Voids 1 # Bowel Movements 2 ABP, PAP, CO, CI - Last Documented Arterial Blood Pressure 131/53 - Exam Patient on mechanical ventilation, sedated. - Labs CBC & Chem 7: 12/19/19 04:00 12/19/19 14:11 Labs: Abnormal Lab Results - Last 24 Hours (Table) 12/18/19 12/18/19 12/19/19 Range/Units 22:15 23:39 04:00 RBC 3.76 L (3.80-5.40) m/uL Hgb 9.9 L (11.4-16.0) gm/dL Hct 31.0 L (34.0-46.0) % RDW 15.9 H (11.5-15.5) % D-Dimer (<0.60) mg/L FEU ABG pH (7.35-7.45) ABG pO2 (83-108) mmHg ABG HCO3 (21-25) mmol/L ABG Total CO2 (19-24) mmol/L ABG O2 Saturation (94-97) % Potassium (3.5-5.1) mmol/L Carbon Dioxide (22-30) mmol/L BUN (7-17) mg/dL Glucose (74-99) mg/dL POC Glucose (mg/dL) 135 H 133 H (75-99) mg/dL Calcium (8.4-10.2) mg/dL AST (14-36) U/L ALT (4-34) U/L Alkaline Phosphatase (38-126) U/L Lactate Dehydrogenase (313-618) U/L Creatine Kinase (30-135) U/L C-Reactive Protein (<10.0) mg/L Total Protein (6.3-8.2) g/dL Albumin (3.5-5.0) g/dL 12/19/19 12/19/19 12/19/19 Range/Units 04:00 04:00 04:06 RBC (3.80-5.40) m/uL Hgb (11.4-16.0) gm/dL Hct (34.0-46.0) % RDW (11.5-15.5) % D-Dimer 4.36 H (<0.60) mg/L FEU ABG pH (7.35-7.45) ABG pO2 (83-108) mmHg ABG HCO3 (21-25) mmol/L ABG Total CO2 (19-24) mmol/L ABG O2 Saturation (94-97) % Potassium 3.0 L (3.5-5.1) mmol/L Carbon Dioxide 32 H (22-30) mmol/L BUN 30 H (7-17) mg/dL Glucose 180 H (74-99) mg/dL POC Glucose (mg/dL) 186 H (75-99) mg/dL Calcium 8.3 L (8.4-10.2) mg/dL AST 81 H (14-36) U/L ALT 113 H (4-34) U/L Alkaline Phosphatase 228 H (38-126) U/L Lactate Dehydrogenase 1635 H (313-618) U/L Creatine Kinase 492 H (30-135) U/L C-Reactive Protein 13.5 H (<10.0) mg/L Total Protein 5.5 L (6.3-8.2) g/dL Albumin 2.9 L (3.5-5.0) g/dL 12/19/19 12/19/19 12/19/19 Range/Units 04:55 05:35 07:15 RBC (3.80-5.40) m/uL Hgb (11.4-16.0) gm/dL Hct (34.0-46.0) % RDW (11.5-15.5) % D-Dimer (<0.60) mg/L FEU ABG pH 7.48 H (7.35-7.45) ABG pO2 64 L (83-108) mmHg ABG HCO3 32 H (21-25) mmol/L ABG Total CO2 34 H (19-24) mmol/L ABG O2 Saturation 93.3 L (94-97) % Potassium (3.5-5.1) mmol/L Carbon Dioxide (22-30) mmol/L BUN (7-17) mg/dL Glucose (74-99) mg/dL POC Glucose (mg/dL) 178 H 142 H (75-99) mg/dL Calcium (8.4-10.2) mg/dL AST (14-36) U/L ALT (4-34) U/L Alkaline Phosphatase (38-126) U/L Lactate Dehydrogenase (313-618) U/L Creatine Kinase (30-135) U/L C-Reactive Protein (<10.0) mg/L Total Protein (6.3-8.2) g/dL Albumin (3.5-5.0) g/dL 12/19/19 12/19/19 12/19/19 Range/Units 08:18 10:54 11:39 RBC (3.80-5.40) m/uL Hgb (11.4-16.0) gm/dL Hct (34.0-46.0) % RDW (11.5-15.5) % D-Dimer (<0.60) mg/L FEU ABG pH (7.35-7.45) ABG pO2 (83-108) mmHg ABG HCO3 (21-25) mmol/L ABG Total CO2 (19-24) mmol/L ABG O2 Saturation (94-97) % Potassium (3.5-5.1) mmol/L Carbon Dioxide (22-30) mmol/L BUN (7-17) mg/dL Glucose (74-99) mg/dL POC Glucose (mg/dL) 141 H 189 H 195 H (75-99) mg/dL Calcium (8.4-10.2) mg/dL AST (14-36) U/L ALT (4-34) U/L Alkaline Phosphatase (38-126) U/L Lactate Dehydrogenase (313-618) U/L Creatine Kinase (30-135) U/L C-Reactive Protein (<10.0) mg/L Total Protein (6.3-8.2) g/dL Albumin (3.5-5.0) g/dL 12/19/19 12/19/19 12/19/19 Range/Units 14:06 14:11 16:16 RBC (3.80-5.40) m/uL Hgb (11.4-16.0) gm/dL Hct (34.0-46.0) % RDW (11.5-15.5) % D-Dimer (<0.60) mg/L FEU ABG pH (7.35-7.45) ABG pO2 (83-108) mmHg ABG HCO3 (21-25) mmol/L ABG Total CO2 (19-24) mmol/L ABG O2 Saturation (94-97) % Potassium 3.1 L (3.5-5.1) mmol/L Carbon Dioxide (22-30) mmol/L BUN (7-17) mg/dL Glucose (74-99) mg/dL POC Glucose (mg/dL) 175 H 144 H (75-99) mg/dL Calcium (8.4-10.2) mg/dL AST (14-36) U/L ALT (4-34) U/L Alkaline Phosphatase (38-126) U/L Lactate Dehydrogenase (313-618) U/L Creatine Kinase (30-135) U/L C-Reactive Protein (<10.0) mg/L Total Protein (6.3-8.2) g/dL Albumin (3.5-5.0) g/dL 12/19/19 12/19/19 12/19/19 Range/Units 18:16 20:02 21:53 RBC (3.80-5.40) m/uL Hgb (11.4-16.0) gm/dL Hct (34.0-46.0) % RDW (11.5-15.5) % D-Dimer (<0.60) mg/L FEU ABG pH (7.35-7.45) ABG pO2 (83-108) mmHg ABG HCO3 (21-25) mmol/L ABG Total CO2 (19-24) mmol/L ABG O2 Saturation (94-97) % Potassium (3.5-5.1) mmol/L Carbon Dioxide (22-30) mmol/L BUN (7-17) mg/dL Glucose (74-99) mg/dL POC Glucose (mg/dL) 154 H 178 H 170 H (75-99) mg/dL Calcium (8.4-10.2) mg/dL AST (14-36) U/L ALT (4-34) U/L Alkaline Phosphatase (38-126) U/L Lactate Dehydrogenase (313-618) U/L Creatine Kinase (30-135) U/L C-Reactive Protein (<10.0) mg/L Total Protein (6.3-8.2) g/dL Albumin (3.5-5.0) g/dL Microbiology - Last 24 Hours (Table) 12/19/19 00:00 Gram Stain - Preliminary Sputum Sputum Culture - Preliminary Assessment and Plan Assessment: * Myasthenia gravis, currently in remission. Patient is status post treatment with IVIG about a month ago for myasthenia gravis exacerbation. * Acute multifocal pneumonia, due to Covid-19. * Diabetes poorly controlled * Obesity Plan: * Patient's myasthenia gravis cannot be assessed at this time. Examination limited due to patient being sedated. * Treatment of COVID as per ID and critical care. * If she develops any signs of myasthenia gravis exacerbation, after resolution of pneumonia, we will consider treatment with IVIG. * Your medical management.
[2019-12-19] MEDS: SODIUM CHLORIDE 0.9% 1,000 ML IV SCH (22:47)
[2019-12-19 23:43] LABS: Glucose,Whole Blood 140 mg/dL (75-99)
[2019-12-20 00:01] LABS: Glucose,Whole Blood 130 mg/dL (75-99)
[2019-12-20] MEDS: POTASSIUM CHLORIDE 20 MEQ in WATER FOR INJECTION 1 100ML.BAG IVPB SCH ×5 (00:16→23:23)
[2019-12-20 02:08] LABS: Glucose,Whole Blood 121 mg/dL (75-99)
[2019-12-20 04:17] LABS: Glucose,Whole Blood 115 mg/dL (75-99)
[2019-12-20 05:35] LABS: ABG Base Excess 10.9 mmol/L; ABG HCO3 34 mmol/L (21-25); ABG Oxygen Saturation 97.5 % (94-97); ABG PCO2 45 mmHg (35-45); ABG PH 7.49 (7.35-7.45); ABG PO2 88 mmHg (83-108); ABG TCO2 36 mmol/L (19-24); Allen Test Performed? Yes
[2019-12-20 05:51] LABS: Sodium 139 mmol/L (137-145)
[2019-12-20 05:53] LABS: HGB 10.2 gm/dL (11.4-16.0); Hypochromasia Marked; MCH 27.1 pg (25.0-35.0); MCHC 32.9 g/dL (31.0-37.0); MCV 82.3 fL (80.0-100.0); Mean Platelet Volume 8.2; Platelet Count 299 k/uL (150-450); Poikilocytosis Slight; RBC 3.77 m/uL (3.80-5.40); RDW 15.9 % (11.5-15.5)
[2019-12-20 05:54] LABS: AST 85 U/L (14-36); African American GFR (CKD) >90 (>60 ml/min/1.73 sqM); Anion Gap 2 mmol/L; Blood Urea Nitrogen 30 mg/dL (7-17); C Reactive Protein 8.9 mg/L (<10.0); Calcium 8.5 mg/dL (8.4-10.2); Carbon Dioxide 34 mmol/L (22-30); Chloride 103 mmol/L (98-107); Creatine Kinase 321 U/L (30-135); Glucose 118 mg/dL (74-99); LDH 1835 U/L (313-618); Non-African American GFR(CKD) >90 (>60 ml/min/1.73 sqM); Potassium 3.5 mmol/L (3.5-5.1); Total Bilirubin 0.5 mg/dL (0.2-1.3); Total Protein 5.7 g/dL (6.3-8.2)
[2019-12-20 05:55] LABS: ALT 97 U/L (4-34); Alkaline Phosphatase 208 U/L (38-126)
[2019-12-20 06:05] LABS: Glucose,Whole Blood 109 mg/dL (75-99)
[2019-12-20] MEDS: SODIUM CHLORIDE 0.9% 1,000 ML IV SCH (06:28)
[2019-12-20 06:53] LABS: Basophils # (M) 0.05 k/uL (0-0.2); Nucleated Red Blood Cells 1 /100 WBC (0-0)
[2019-12-20 06:55] LABS: Band Neutrophils % 18 %; Eosinophils # (M) 0.16 k/uL (0-0.7); Lymphocytes # (M) 1.11 k/uL (1.0-4.8); Metamyelocytes # (M) 0.53 k/uL (0); Metamyelocytes % 10 %; Monocytes # (M) 0.21 k/uL (0-1.0); Myelocytes # (M) 0.05 k/uL (0); Myelocytes % 1 %; Neutrophils % (M) 44 %; Total Cells Counted 200; WBC 5.3 k/uL (3.8-10.6)
[2019-12-20] MEDS: PROPOFOL 1,000 MG in EMPTY BAG 1 BAG IV SCH ×8 (07:08→21:23)
--- NOTE | 2019-12-20 07:15 | XR ---
EXAMINATION TYPE: XR chest 1V portable DATE OF EXAM: 12/20/2019 COMPARISON: 12/19/2019 HISTORY: Shortness of breath TECHNIQUE: Single frontal view of the chest is obtained. FINDINGS: Diffuse airspace disease bilaterally. ET and NG tube and central line stable. Note is made the tip of the NG tube is at the thoracic inlet right. Correlate for positioning. Heart size stable. No pneumothorax. IMPRESSION: 1. Correlate for ARDS or diffuse pneumonia. No significant interval change.
[2019-12-20] MEDS: CHLORHEXIDINE GLUCONATE 15 ML CUP MUCOUS MEM SCH ×2 (07:49→21:19)
[2019-12-20] MEDS: HYDROCORTISONE SUCCINATE 100 MG/2 ML VIAL IV SCH ×2 (07:49→16:34)
[2019-12-20] MEDS: PANTOPRAZOLE 40 MG/10 ML VIAL IVP SCH (07:50)
[2019-12-20] MEDS: ENOXAPARIN 120 MG/0.8 ML SYRINGE SQ SCH ×2 (07:50→21:20)
[2019-12-20] MEDS: FUROSEMIDE 10 MG/ML 4 ML VIAL IV SCH ×2 (07:50→21:19)
[2019-12-20] MEDS: levETIRAcetam ORAL SOLN 500 MG/5 ML CUP PO SCH ×2 (07:50→21:19)
[2019-12-20] MEDS: AZITHROMYCIN 500 MG in SODIUM CHLORIDE 0.9% 250 ML IVPB SCH (07:55)
[2019-12-20 08:20] LABS: Glucose,Whole Blood 122 mg/dL (75-99)
[2019-12-20 09:31] LABS: Glucose,Whole Blood 134 mg/dL (75-99)
[2019-12-20 10:18] LABS: Glucose,Whole Blood 162 mg/dL (75-99)
--- NOTE | 2019-12-20 11:43 | P.PN ---
Subjective Progress Note Date: 12/20/19 Principal diagnosis: Acute hypoxic respiratory failure secondary to CoVID 19 pneumonitis This is a 59-year-old female with history of multiple medical problems including myasthenia gravis, type 2 diabetes, hypertension, GERD without esophagitis, patient is chronically on prednisone for underlying myasthenia gravis. Patient presented to the ER with 1 day history of increased shortness of breath, fever and cough. She was recently exposed to coworkers with proven positive covid 19 infection. Patient had no symptoms of nausea or vomiting, no abdominal pain, no diarrhea, no loss of sensation of smell or taste. In the ER the patient was noted to have a temp of 103. She was tachycardic and the relatively hypoxic. She was placed on a nonrebreather mask, transition to a high flow nasal cannula re-transitioned again to a non-rebreather mask, and she was admitted to the i ntensive care unit overnight. Patient clearly had significant elevated markers for covid 19 pneumonitis including significantly abnormal chest x-ray showing bilateral interstitial infiltrates. Her LDH was elevated. Her influenza screen was negative. And again her chest x-ray showed multifocal infiltrates. Patient was empirically placed on Actonel Rocephin and Zithromax, and shortly after I sa w the patient, check ABG on the patient and clearly showed worsening hypoxic and hypercapnic respiratory failure. Patient was intubated and placed on mechanical ventilation. Patient also required propofol, fentanyl, and small dose of norepinephrine at 0.03 mcg/kg/m. Present ventilatory settings are assist control rate of 24 volume is 450 FiO2 is 100% and PEEP is 16. Peak airway pressure is 35, plateau pressure is 30. Patient was chronically on prednisone and this was switched to Cortef at 50 mg IV push every 8 hours. Reevaluated today on 12/14/19, patient remains on mechanical ventilation. Her ventilatory settings are assist control rate of 24 tidal volume of 400 FiO2 90% I cut it down to 70%, and PEEP is 16. Peak airway pressure is 35 plateau pressure is 33. Patient is positive for covid 19 pneumonitis. She is still requiring a small dose of norepinephrine at 0.02 mcg/kg/m, she is on propofol drip at 75 mcg/kg/m, she is also on fentanyl at 1 mcg/kg/m. Patient is also on insulin at 3 units per hour. Chest x-ray continues to show diffuse interstitial infiltrates. Patient was given a dose of Lasix at 40 mg IV push 1, and I cut down her IV fluid to 50 mL per hour. FiO2 was decreased down to 70%. Labs showed a pO2 of 143 pCO2 of 37 pH of 7.32. WBC count is 13.9 hemoglobin is 10.3. D-dimer is 0.54. C-reactive protein is down to 265 from 404. Liver enzymes are elevated compared to yesterday. And ferritin level is 285 compared to 94 the day before. Pro-calcitonin is 5.52. Chest x-ray is worse compared to the chest x-ray on admission. Reevaluated today on 12/15/19, patient remains in the ICU, intubated and mechanically ventilated. Patient is positive for covid 19 pneumonitis. Her ventilator settings are assist control rate of 24 tidal volume is 450 FiO2 is 70% and PEEP is 16. Her peak airway pressure is 37 her plateau pressure is 35. Patient is on propofol at 75, fentanyl at 1 mcg/kg/h, insulin at 10 units per hour and she is on 0.9 normal saline at 50 mL per hour. Remains on enteral feeding. Her chest x-ray continues to show significant interstitial pneumonitis. And possibly some component of fluid overload hence patient was given Lasix 40 mg IV push times one. After reviewing her chest x-ray ABG and respiratory parameters, I cut down her FiO2 to 65% increase her assist control rate of 26 increased the PEEP to 18 and decreased her tidal volume to 400. WBC count is 5.4 hemoglobin is 9.7. PO2 is 79 pCO2 is 41 pH of 7.33. Slight worsen ing in the area profile noted, creatinine is up to 1.75. LDH is better today 1749 liver enzymes are elevated. C-reactive protein is 157 improved. Pro- calcitonin is 5.52. Chest x-ray again showed worsening bilateral lung infiltrates Reevaluated today on 12/16/19, patient remains intubated and mechanically ventilated. Requiring relatively high FiO2 of 80% and PEEP is 18 assist control rate of 26 and tidal volume is 400. She has a relatively elevated peak airway pressure and plateau pressure is 28. Her blood pressure is stable, she is not requiring any norepinephrine at present she was on levo fed yesterday. Remains on insulin drip, fentanyl at 20 mcg/kg/h, and she is on propofol at 75. Chest x-ray continues to show bilateral infiltrates, improved compared to baseline. CBC is relatively normal. ABG showed a pO2 of 73 pCO2 of 46 pH of 7.33. Renal profile seems to be improving BUN is 38 creatinine is 1.48. Inflammatory markers including C-reactive protein, LDH, ferritin, are all improving. But remain relatively high. Reevaluated today on 12/17/19, patient remains in the ICU, intubated and mechanically ventilated. Yesterday, patient desaturated in spite of being on 100% FiO2, and high PEEP of 18. Hence I recommended a prone position patient was prone yesterday until this morning. Remains in prone position, remains on ventilatory support. Her ventilator settings are assist control rate of 26, volume is 400 FiO2 is 50% PEEP is still at 18. Her peak airway pressure is 44 her plateau pressure is 30. ABG showed a pO2 of 85 pCO2 of 38 pH of 7.43. Patient remains on propofol at 75 mcg/kg/m, and fentanyl at 1 mcg/kg/h. Patient did receive actemra and Plaquenil. Chest x-ray continues to show worsening of her interstitial infiltrates, placed on Lasix at 40 mg IV push every 12 hours. Patient remains in the prone position since last night.her d-dimer today is 1. 87.inflammatory markers including C-reactive protein is 34.2 LDH is 1551 and her ferritin is 165.8.slight improvement noted in the markers, however that's not reflected on her chest x-ray appearance. Reevaluated today on 12/18/19, patient remains in the ICU, on mechanical ventilation. Her ventilator settings are assist control rate of 26, volume is 400 FiO2 is 50% and PEEP is 18. Patient desaturates easily in a supine position, hence she has been prone for the last 19 hours. And the plan is to place her back in supine position again today. Her ABG today showed a pO2 of 88 pCO2 of 43 pH of 7.46, and again this ABG was done in the prone position. Her chest x-ray is showing worsening interstitial infiltrates bilaterally. Remains on Lasix 40 mg twice a day, IV fluid at 50 mL per hour. Propofol at 75 mcg/kg/m, and she is also on fentanyl. At 1 mcg/kg per hour. Patient is on enteral feeding. And seems to be fairly well tolerated. Chest x-ray is quite concerning to me, but again we have noticed in the last few days that prone position does extremely well to this patient, and her numbers specially her ABG improved significantly in prone position The patient is seen today 12/19/2019 in follow-up in the intensive care unit. She remains intubated on the mechanical ventilator currently with assist-control mode of rate of 26, tidal volume 400, FiO2 50% and a PEEP of 18. Morning blood gases revealed a PaO2 of 64, pCO2 44, pH 7.48. She remains on 0.9 normal saline at 50 MLS per hour. Propofol at 75 mcg/kg/m, fentanyl 1 mg at hour. Insulin drip at 3 units per hour. Vital HP at 12 ML's per hour which is goal. She has been intubated since 12/13/2019. She is being placed in the prone physician for 16 hours a day, 8 hours in supine position. Chest x-ray continues to revealed diffuse airspace infiltrates that correlate with ARDS. Blood, urine cultures revealed no growth. Sputum culture is pending. She has completed her course of Plaquenil. She remains on azithromycin and ceftriaxone. She is on Solu-Cortef 50 mg every 8 hours. She read received 2 doses of Actemra. The patient is seen today 12/20/2019 in follow-up in the intensive care unit. She remains intubated and on mechanical ventilator. She is currently on assist control of 26, tidal volume 400, FiO2 80% and a PEEP of 8. Morning blood gases reveal a P O2 of 88, pCO2 of 45, pH 7.49. She is sedated on propofol 75 mcg/kg/m. Fentanyl at 2 mcg/kg per hour. She is on an insulin drip at 3 units per hour. 0.9 normal saline at 50 MLS per hour. Being nourished with vital HP at 12 ML's per hour which is goal. She remains in sinus rhythm without controlled rate. She is currently in a prone position. Blood cultures reveal no growth. Urine culture no growth. Sputum culture pending. White count 5.3. Hemoglobin 10.2. Sodium 139. Potassium 3.5. Creatinine 0.7. AST 85. ALT 97. LDH 1835. C-reactive protein 18.9. She remains on ceftriaxone, Lovenox at 120 mg subcu every 12 hours, Lasix 40 mg every 12 hours, Solu-Cortef 50 mg every 8 hours. Objective - Vital Signs Vital signs: Vital Signs Temp 99.4 F 12/20/19 08:00 Pulse 76 12/20/19 11:00 Resp 27 H 12/20/19 11:00 BP 125/71 12/20/19 11:00 Pulse Ox 98 12/20/19 11:00 Intake & Output 12/19/19 12/20/19 12/20/19 18:59 06:59 18:59 Intake Total 2997.684 1284.102 743.978 Output Total 2160 1470 885 Balance 837.684 -185.898 -141.022 Weight 130.8 kg 130.8 kg Intake: IV 1983 636 465 Azithromycin 500 mg In 1250 Sodium Chloride 0.9% 250 ml @ 250 mls/hr IVPB DAILY [facility] Rx#:[id number] Pressure Bag 33 36 15 Sodium Chloride 0.9% 1, 550 600 250 000 ml @ 50 mls/hr IV . Q20H [facility] Rx#:[id number] cefTRIAXone 1 gm In 150 200 Sodium Chloride 0.9% 50 ml @ 100 mls/hr IVPB Q24HR [facility] Rx#:[id number] Intake, IV Titration 426.684 612.102 200.978 Amount Insulin Regular 100 unit 27.490 33.751 0 In Sodium Chloride 0.9% 100 ml @ Per Protocol IV .Q0M [facility] Rx#:[id number] Potassium Chloride 20 meq 300 In Water For Injection 1 100ml.bag @ 50 mls/hr IVPB Q2H [facility] Rx#: [id number] Propofol 1,000 mg In 299.194 278.351 100.978 Empty Bag 1 bag @ Titrate IV .Q0M [facility] Rx#: [id number] fentaNYL (PF) 1,000 mcg 100.000 100 In Sodium Chloride 0.9% 80 ml @ 1 MCG/KG/HR 8.39 mls/hr IV .[id number] [facility] Rx #:[id number] Tube Feeding 168 36 48 Other 420 30 Output: Urine 2160 1470 885 Other: Voiding Method Indwelling Catheter Indwelling Catheter Indwelling Catheter # Voids 1 0 ABP, PAP, CO, CI - Last Documented Arterial Blood Pressure 157/71 - Exam Physical Exam: Revealed a morbidly obese 59-year-old female on mechanical ventilation, sedated on propofol and fentanyl. Alternating supine and prone positioning. Head: Cushingoid, no neck masses, endotracheal tube and orogastric tube is intact. HEENT: Neck is supple. PERRLA, EOMI, no icterus, no JVD. Right IJ central line seems to be intact. Chest: Diminished breath sounds and crackles at the bases. Cardiac Exam: Normal S1 and S2, no S3 gallop, no murmur. Abdomen: Obese, Soft, nontender, no megaly, no rebound, no guarding, normal bowel sounds. Extremities: No clubbing, no edema, no cyanosis. Neurological Exam: Cannot be assessed, patient is sedated and on mechanical ventilation on propofol and fentanyl. Psychiatric: Could not be assessed. Skin: No rashes. Musculoskeletal: No deformities. - Labs CBC & Chem 7: 12/20/19 05:30 12/20/19 05:30 Labs: Abnormal Lab Results - Last 24 Hours (Table) 12/19/19 12/19/19 12/19/19 Range/Units 11:39 14:06 14:11 RBC (3.80-5.40) m/uL Hgb (11.4-16.0) gm/dL Hct (34.0-46.0) % RDW (11.5-15.5) % Metamyelocytes # (Man) (0) k/uL Myelocytes # (Manual) (0) k/uL Nucleated RBCs (0-0) /100 WBC ABG pH (7.35-7.45) ABG HCO3 (21-25) mmol/L ABG Total CO2 (19-24) mmol/L ABG O2 Saturation (94-97) % Potassium 3.1 L (3.5-5.1) mmol/L Carbon Dioxide (22-30) mmol/L BUN (7-17) mg/dL Glucose (74-99) mg/dL POC Glucose (mg/dL) 195 H 175 H (75-99) mg/dL AST (14-36) U/L ALT (4-34) U/L Alkaline Phosphatase (38-126) U/L Lactate Dehydrogenase (313-618) U/L Creatine Kinase (30-135) U/L Total Protein (6.3-8.2) g/dL Albumin (3.5-5.0) g/dL 12/19/19 12/19/19 12/19/19 Range/Units 16:16 18:16 20:02 RBC (3.80-5.40) m/uL Hgb (11.4-16.0) gm/dL Hct (34.0-46.0) % RDW (11.5-15.5) % Metamyelocytes # (Man) (0) k/uL Myelocytes # (Manual) (0) k/uL Nucleated RBCs (0-0) /100 WBC ABG pH (7.35-7.45) ABG HCO3 (21-25) mmol/L ABG Total CO2 (19-24) mmol/L ABG O2 Saturation (94-97) % Potassium (3.5-5.1) mmol/L Carbon Dioxide (22-30) mmol/L BUN (7-17) mg/dL Glucose (74-99) mg/dL POC Glucose (mg/dL) 144 H 154 H 178 H (75-99) mg/dL AST (14-36) U/L ALT (4-34) U/L Alkaline Phosphatase (38-126) U/L Lactate Dehydrogenase (313-618) U/L Creatine Kinase (30-135) U/L Total Protein (6.3-8.2) g/dL Albumin (3.5-5.0) g/dL 12/19/19 12/19/19 12/19/19 Range/Units 21:53 23:00 23:41 RBC (3.80-5.40) m/uL Hgb (11.4-16.0) gm/dL Hct (34.0-46.0) % RDW (11.5-15.5) % Metamyelocytes # (Man) (0) k/uL Myelocytes # (Manual) (0) k/uL Nucleated RBCs (0-0) /100 WBC ABG pH (7.35-7.45) ABG HCO3 (21-25) mmol/L ABG Total CO2 (19-24) mmol/L ABG O2 Saturation (94-97) % Potassium 3.2 L (3.5-5.1) mmol/L Carbon Dioxide (22-30) mmol/L BUN (7-17) mg/dL Glucose (74-99) mg/dL POC Glucose (mg/dL) 170 H 140 H (75-99) mg/dL AST (14-36) U/L ALT (4-34) U/L Alkaline Phosphatase (38-126) U/L Lactate Dehydrogenase (313-618) U/L Creatine Kinase (30-135) U/L Total Protein (6.3-8.2) g/dL Albumin (3.5-5.0) g/dL 12/19/19 12/20/19 12/20/19 Range/Units 23:58 02:07 04:15 RBC (3.80-5.40) m/uL Hgb (11.4-16.0) gm/dL Hct (34.0-46.0) % RDW (11.5-15.5) % Metamyelocytes # (Man) (0) k/uL Myelocytes # (Manual) (0) k/uL Nucleated RBCs (0-0) /100 WBC ABG pH (7.35-7.45) ABG HCO3 (21-25) mmol/L ABG Total CO2 (19-24) mmol/L ABG O2 Saturation (94-97) % Potassium (3.5-5.1) mmol/L Carbon Dioxide (22-30) mmol/L BUN (7-17) mg/dL Glucose (74-99) mg/dL POC Glucose (mg/dL) 130 H 121 H 115 H (75-99) mg/dL AST (14-36) U/L ALT (4-34) U/L Alkaline Phosphatase (38-126) U/L Lactate Dehydrogenase (313-618) U/L Creatine Kinase (30-135) U/L Total Protein (6.3-8.2) g/dL Albumin (3.5-5.0) g/dL 12/20/19 12/20/19 12/20/19 Range/Units 05:30 05:30 05:32 RBC 3.77 L (3.80-5.40) m/uL Hgb 10.2 L (11.4-16.0) gm/dL Hct 31.0 L (34.0-46.0) % RDW 15.9 H (11.5-15.5) % Metamyelocytes # (Man) 0.53 H (0) k/uL Myelocytes # (Manual) 0.05 H (0) k/uL Nucleated RBCs 1 H (0-0) /100 WBC ABG pH 7.49 H (7.35-7.45) ABG HCO3 34 H (21-25) mmol/L ABG Total CO2 36 H (19-24) mmol/L ABG O2 Saturation 97.5 H (94-97) % Potassium (3.5-5.1) mmol/L Carbon Dioxide 34 H (22-30) mmol/L BUN 30 H (7-17) mg/dL Glucose 118 H (74-99) mg/dL POC Glucose (mg/dL) (75-99) mg/dL AST 85 H (14-36) U/L ALT 97 H (4-34) U/L Alkaline Phosphatase 208 H (38-126) U/L Lactate Dehydrogenase 1835 H (313-618) U/L Creatine Kinase 321 H (30-135) U/L Total Protein 5.7 L (6.3-8.2) g/dL Albumin 3.0 L (3.5-5.0) g/dL 12/20/19 12/20/19 12/20/19 Range/Units 06:03 08:18 09:29 RBC (3.80-5.40) m/uL Hgb (11.4-16.0) gm/dL Hct (34.0-46.0) % RDW (11.5-15.5) % Metamyelocytes # (Man) (0) k/uL Myelocytes # (Manual) (0) k/uL Nucleated RBCs (0-0) /100 WBC ABG pH (7.35-7.45) ABG HCO3 (21-25) mmol/L ABG Total CO2 (19-24) mmol/L ABG O2 Saturation (94-97) % Potassium (3.5-5.1) mmol/L Carbon Dioxide (22-30) mmol/L BUN (7-17) mg/dL Glucose (74-99) mg/dL POC Glucose (mg/dL) 109 H 122 H 134 H (75-99) mg/dL AST (14-36) U/L ALT (4-34) U/L Alkaline Phosphatase (38-126) U/L Lactate Dehydrogenase (313-618) U/L Creatine Kinase (30-135) U/L Total Protein (6.3-8.2) g/dL Albumin (3.5-5.0) g/dL 12/20/19 Range/Units 10:17 RBC (3.80-5.40) m/uL Hgb (11.4-16.0) gm/dL Hct (34.0-46.0) % RDW (11.5-15.5) % Metamyelocytes # (Man) (0) k/uL Myelocytes # (Manual) (0) k/uL Nucleated RBCs (0-0) /100 WBC ABG pH (7.35-7.45) ABG HCO3 (21-25) mmol/L ABG Total CO2 (19-24) mmol/L ABG O2 Saturation (94-97) % Potassium (3.5-5.1) mmol/L Carbon Dioxide (22-30) mmol/L BUN (7-17) mg/dL Glucose (74-99) mg/dL POC Glucose (mg/dL) 162 H (75-99) mg/dL AST (14-36) U/L ALT (4-34) U/L Alkaline Phosphatase (38-126) U/L Lactate Dehydrogenase (313-618) U/L Creatine Kinase (30-135) U/L Total Protein (6.3-8.2) g/dL Albumin (3.5-5.0) g/dL Microbiology - Last 24 Hours (Table) 12/19/19 00:00 Gram Stain - Preliminary Sputum Sputum Culture - Preliminary Assessment and Plan Assessment: 1 Acute hypoxic and hypercapnic respiratory failure secondary to pneumonitis, CoVID 19 pneumonitis, Underlying bacterial pneumonia is not entirely ruled out requiring intubation mechanical ventilatory support.. 2 History of myasthenia gravis, in remission however could be contributing to worsening hypercapnic respiratory failure. 3 Acute sepsis and septic shock secondary to pneumonia 4 Type 2 diabetes. 5 Morbid obesity. Plan: The patient was seen and evaluated by Dr. Hawthorne Chest x-ray, ABGs and labs reviewed Increase the PEEP to 22. Titrate down the FiO2 as tolerated Overall prognosis remains quite guarded and poor Continue with 16 hours prone, 8 hour supine as tolerated We'll continue to follow and make further recommendations based on her clinical status. Critical care time 36 minutes I, the cosigning physician, performed a history & physical examination of the patient. Lungs sounds few scattered rhonchi, crackles in the posterior bases. Maintaining good O2 saturations in the 90s on 80% FiO2 and a PEEP of 18 on mechanical ventilator. I discussed the assessment and plan of care with my nurse practitioner, Serena Ronquillo. I attest to the above note as dictated by her.
[2019-12-20 11:49] LABS: Ferritin 115.3 ng/mL (10.0-291.0)
[2019-12-20] MEDS: fentaNYL (PF) 1,000 MCG in SODIUM CHLORIDE 0.9% 80 ML IV SCH ×3 (11:53→21:53)
[2019-12-20 12:05] LABS: Glucose,Whole Blood 194 mg/dL (75-99)
[2019-12-20 13:05] LABS: Glucose,Whole Blood 217 mg/dL (75-99)
[2019-12-20] MEDS ORDERED: CISATRACURIUM 2 MG/ML 5 ML VIAL IV ONE (14:22)
--- NOTE | 2019-12-20 14:25 | P.PN ---
Subjective Progress Note Date: 12/20/19 This is a 59-year-old female, history of myasthenia gravis and multiple other medical issues exposed to COVID-19 at work, in a psychiatric [facility] in [place] admitted with bilateral pneumonia, possible Covid-19. Influenza screening negative. Tested positive for coronavirus. LDH trending up currently 1285. Maintained on Rocephin, Plaquenil and Zithromax. D-dimer elevated at 0.63. Overnight patient was maintained on a nonrebreather mask. Chest x-ray this morning reporting worsening persistent multifocal patchy and confluent airspace disease, greatest in the right upper and left lower lobes. Dyspnea worsened and patient was intubated this morning. Currentlly on FiO2 of 90%/+16 of PEEP. Maintained on diprovan, fentanyl drip, Levophed. Evaluated by neurology with recommendations noted and appreciated, no IVIG at this time as patient's myasthenia gravis felt to be in remission. Continues on Cortef. Blood sugars elevated, on insulin drip. ABGs noted, acidotic with pH of 7.28, pCO2 47 pO2 87, bicarb 22, total CO2 24, O2 sat 96.9, base excess -4.4 on 100% FiO2. Mild improvement in renal function -Creatinine down to 1.2. 12/14/2019 remains vent dependent. This morning patient required FiO2 90% and PEEP of 16, further weaned to 70%. Received Actemra. FiO2 further weaned to 60%. Chest x-ray reporting diffuse interstitial infiltrates , pleural effusion unchanged, received a dose of Lasix IV push. ABGs noted. Continues on diprovan, fentanyl and Levophed. Renal function worsening, creatinine up to 1.72. Blood sugars currently better controlled, on insulin drip. LDH up to 5. Ferritin level up to 285.9. 12/15/2019 maintained on Rocephin, Zithromax, Plaquenil , IV push I Cortef. FiO2 down to 65%, PEEP remains at 16. ABGs noted. Chest x-ray reporting stable to worsening bilateral lung infiltrates. Scheduled for another dose of Actemra. Maintained on diprovan, fentanyl, insulin drips in addition to gentle IV fluid hydration. C-reactive protein improved ,157.8. Creatinine kinase up to 1001. LDH better, 1749. LFTs elevated, holding. Renal function minimally worsened, BUN up to 37, creatinine up to 1.7. Afebrile, normal WBC. 12/16/2019 S/P Actemra x 2 doses.Remains vent dependent, FiO2 80%/+10 of PEEP. ABGs noted. Chest x-ray reporting no significant change-improved as per forestry aide. Remains off of pressors. Continues on diprovan, fentanyl and insu hank drips. C-reactive protein, LDH, ferritin elevated, but improving. Renal function improving, creatinine down to 1.48. Afebrile. 12/19/2019 S/P Actemra X 2.remains vent dependent with FiO2 of 50% while in prone position; requires 80% once flipped to supine position, PEEP maintained at 18. Continues on insulin, diprovan and fentanyl drips. Gentle IV fluid hydration. ABGs noted. LDH, C-reactive protein, renal function improving. D- dimer up to 4.36. Lovenox dose increased. Continues on Rocephin, Zithromax, Solu-Cortef. Afebrile currently, T-max 99.2. Sputum culture pending Tolerating tube feeds of vital H&P at goal with minimal to no residuals. 12/20/2019 remains vent dependent, currently 60% FiO2 supine with FiO2 increased to +22. ABGs noted.chest x-ray reporting no significant interval change. Maintained on diprovan, fentanyl, Rocephin, Solu-Cortef, Lasix. T-max 99.4, WBC 5.3. Preliminary Sputum culture reporting no growth after 24 hours. Blood cultures/urine culture reporting no growth. LDH 1835, C-reactive protein and Ferritin WNL. creatinine kinase down to 321. Anticoagulated on Lovenox. Telemetry sinus rhythm. Objective - Vital Signs Vital signs: Vital Signs Temp 99.2 F 12/20/19 12:00 Pulse 78 12/20/19 13:00 Resp 26 H 12/20/19 13:00 BP 142/81 12/20/19 13:00 Pulse Ox 99 12/20/19 13:00 Intake & Output 12/19/19 12/20/19 12/20/19 18:59 06:59 18:59 Intake Total 2997.684 2798.746 7387.431 Output Total 2160 1470 1050 Balance 837.684 -185.898 322.431 Weight 130.8 kg 130.8 kg Intake: IV 3703 458 1952 Azithromycin 500 mg In 1250 500 Sodium Chloride 0.9% 250 ml @ 250 mls/hr IVPB DAILY [facility] Rx#:[id number] Pressure Bag 33 36 21 Sodium Chloride 0.9% 1, 550 600 350 000 ml @ 50 mls/hr IV . Q20H [facility] Rx#:[id number] cefTRIAXone 1 gm In 150 200 Sodium Chloride 0.9% 50 ml @ 100 mls/hr IVPB Q24HR [facility] Rx#:[id number] Intake, IV Titration 426.684 612.102 211.431 Amount Insulin Regular 100 unit 27.490 33.751 10.453 In Sodium Chloride 0.9% 100 ml @ Per Protocol IV .Q0M [facility] Rx#:[id number] Potassium Chloride 20 meq 300 In Water For Injection 1 100ml.bag @ 50 mls/hr IVPB Q2H [facility] Rx#: [id number] Propofol 1,000 mg In 299.194 278.351 100.978 Empty Bag 1 bag @ Titrate IV .Q0M [facility] Rx#: [id number] fentaNYL (PF) 1,000 mcg 100.000 100 In Sodium Chloride 0.9% 80 ml @ 1 MCG/KG/HR 8.39 mls/hr IV .[id number] [facility] Rx #:[id number] Tube Feeding 168 36 60 Other 420 30 Output: Urine 2160 1470 1050 Other: Voiding Method Indwelling Catheter Indwelling Catheter Indwelling Catheter # Voids 1 0 ABP, PAP, CO, CI - Last Documented Arterial Blood Pressure 186/75 - Exam PHYSICAL EXAM: VITAL SIGNS: As above GENERAL: intubated and sedated, endotracheal tube present, on mechanical ventilation HEENT: Cushingoid ,Conjunctivae normal. Pupils equal. NECK: No JVD. No thyroid enlargement. No LNs CARDIOVASCULAR: S1, S2 regular. No murmur RESPIRATION: Breath sounds diminished. Occasional rhonchi,Fine bibasilar crackles. no wheezing. ABDOMEN: Soft, obese, nontender. No guarding. no masses palpable. Bowel sounds heard. LEGS: No edema. no swelling, no cyanosis NERVOUS SYSTEM: Unable to assess patient sedated and on mechanical ventilation Skin: no rash Microbiology 12/19/19 00:00 Sputum Gram Stain - Preliminary 12/19/19 00:00 Sputum Sputum Culture - Preliminary 12/12/19 11:45 Blood Blood Culture - Final No Growth after 144 hours 12/12/19 12:40 Urine,Voided Urine Culture - Final - Labs CBC & Chem 7: 12/20/19 05:30 12/20/19 05:30 Labs: Abnormal Lab Results - Last 24 Hours (Table) 12/19/19 12/19/19 12/19/19 Range/Units 14:06 14:11 16:16 RBC (3.80-5.40) m/uL Hgb (11.4-16.0) gm/dL Hct (34.0-46.0) % RDW (11.5-15.5) % Metamyelocytes # (Man) (0) k/uL Myelocytes # (Manual) (0) k/uL Nucleated RBCs (0-0) /100 WBC ABG pH (7.35-7.45) ABG HCO3 (21-25) mmol/L ABG Total CO2 (19-24) mmol/L ABG O2 Saturation (94-97) % Potassium 3.1 L (3.5-5.1) mmol/L Carbon Dioxide (22-30) mmol/L BUN (7-17) mg/dL Glucose (74-99) mg/dL POC Glucose (mg/dL) 175 H 144 H (75-99) mg/dL AST (14-36) U/L ALT (4-34) U/L Alkaline Phosphatase (38-126) U/L Lactate Dehydrogenase (313-618) U/L Creatine Kinase (30-135) U/L Total Protein (6.3-8.2) g/dL Albumin (3.5-5.0) g/dL 12/19/19 12/19/19 12/19/19 Range/Units 18:16 20:02 21:53 RBC (3.80-5.40) m/uL Hgb (11.4-16.0) gm/dL Hct (34.0-46.0) % RDW (11.5-15.5) % Metamyelocytes # (Man) (0) k/uL Myelocytes # (Manual) (0) k/uL Nucleated RBCs (0-0) /100 WBC ABG pH (7.35-7.45) ABG HCO3 (21-25) mmol/L ABG Total CO2 (19-24) mmol/L ABG O2 Saturation (94-97) % Potassium (3.5-5.1) mmol/L Carbon Dioxide (22-30) mmol/L BUN (7-17) mg/dL Glucose (74-99) mg/dL POC Glucose (mg/dL) 154 H 178 H 170 H (75-99) mg/dL AST (14-36) U/L ALT (4-34) U/L Alkaline Phosphatase (38-126) U/L Lactate Dehydrogenase (313-618) U/L Creatine Kinase (30-135) U/L Total Protein (6.3-8.2) g/dL Albumin (3.5-5.0) g/dL 12/19/19 12/19/19 12/19/19 Range/Units 23:00 23:41 23:58 RBC (3.80-5.40) m/uL Hgb (11.4-16.0) gm/dL Hct (34.0-46.0) % RDW (11.5-15.5) % Metamyelocytes # (Man) (0) k/uL Myelocytes # (Manual) (0) k/uL Nucleated RBCs (0-0) /100 WBC ABG pH (7.35-7.45) ABG HCO3 (21-25) mmol/L ABG Total CO2 (19-24) mmol/L ABG O2 Saturation (94-97) % Potassium 3.2 L (3.5-5.1) mmol/L Carbon Dioxide (22-30) mmol/L BUN (7-17) mg/dL Glucose (74-99) mg/dL POC Glucose (mg/dL) 140 H 130 H (75-99) mg/dL AST (14-36) U/L ALT (4-34) U/L Alkaline Phosphatase (38-126) U/L Lactate Dehydrogenase (313-618) U/L Creatine Kinase (30-135) U/L Total Protein (6.3-8.2) g/dL Albumin (3.5-5.0) g/dL 12/20/19 12/20/19 12/20/19 Range/Units 02:07 04:15 05:30 RBC 3.77 L (3.80-5.40) m/uL Hgb 10.2 L (11.4-16.0) gm/dL Hct 31.0 L (34.0-46.0) % RDW 15.9 H (11.5-15.5) % Metamyelocytes # (Man) 0.53 H (0) k/uL Myelocytes # (Manual) 0.05 H (0) k/uL Nucleated RBCs 1 H (0-0) /100 WBC ABG pH (7.35-7.45) ABG HCO3 (21-25) mmol/L ABG Total CO2 (19-24) mmol/L ABG O2 Saturation (94-97) % Potassium (3.5-5.1) mmol/L Carbon Dioxide (22-30) mmol/L BUN (7-17) mg/dL Glucose (74-99) mg/dL POC Glucose (mg/dL) 121 H 115 H (75-99) mg/dL AST (14-36) U/L ALT (4-34) U/L Alkaline Phosphatase (38-126) U/L Lactate Dehydrogenase (313-618) U/L Creatine Kinase (30-135) U/L Total Protein (6.3-8.2) g/dL Albumin (3.5-5.0) g/dL 12/20/19 12/20/19 12/20/19 Range/Units 05:30 05:32 06:03 RBC (3.80-5.40) m/uL Hgb (11.4-16.0) gm/dL Hct (34.0-46.0) % RDW (11.5-15.5) % Metamyelocytes # (Man) (0) k/uL Myelocytes # (Manual) (0) k/uL Nucleated RBCs (0-0) /100 WBC ABG pH 7.49 H (7.35-7.45) ABG HCO3 34 H (21-25) mmol/L ABG Total CO2 36 H (19-24) mmol/L ABG O2 Saturation 97.5 H (94-97) % Potassium (3.5-5.1) mmol/L Carbon Dioxide 34 H (22-30) mmol/L BUN 30 H (7-17) mg/dL Glucose 118 H (74-99) mg/dL POC Glucose (mg/dL) 109 H (75-99) mg/dL AST 85 H (14-36) U/L ALT 97 H (4-34) U/L Alkaline Phosphatase 208 H (38-126) U/L Lactate Dehydrogenase 1835 H (313-618) U/L Creatine Kinase 321 H (30-135) U/L Total Protein 5.7 L (6.3-8.2) g/dL Albumin 3.0 L (3.5-5.0) g/dL 12/20/19 12/20/19 12/20/19 Range/Units 08:18 09:29 10:17 RBC (3.80-5.40) m/uL Hgb (11.4-16.0) gm/dL Hct (34.0-46.0) % RDW (11.5-15.5) % Metamyelocytes # (Man) (0) k/uL Myelocytes # (Manual) (0) k/uL Nucleated RBCs (0-0) /100 WBC ABG pH (7.35-7.45) ABG HCO3 (21-25) mmol/L ABG Total CO2 (19-24) mmol/L ABG O2 Saturation (94-97) % Potassium (3.5-5.1) mmol/L Carbon Dioxide (22-30) mmol/L BUN (7-17) mg/dL Glucose (74-99) mg/dL POC Glucose (mg/dL) 122 H 134 H 162 H (75-99) mg/dL AST (14-36) U/L ALT (4-34) U/L Alkaline Phosphatase (38-126) U/L Lactate Dehydrogenase (313-618) U/L Creatine Kinase (30-135) U/L Total Protein (6.3-8.2) g/dL Albumin (3.5-5.0) g/dL 12/20/19 12/20/19 Range/Units 12:03 13:03 RBC (3.80-5.40) m/uL Hgb (11.4-16.0) gm/dL Hct (34.0-46.0) % RDW (11.5-15.5) % Metamyelocytes # (Man) (0) k/uL Myelocytes # (Manual) (0) k/uL Nucleated RBCs (0-0) /100 WBC ABG pH (7.35-7.45) ABG HCO3 (21-25) mmol/L ABG Total CO2 (19-24) mmol/L ABG O2 Saturation (94-97) % Potassium (3.5-5.1) mmol/L Carbon Dioxide (22-30) mmol/L BUN (7-17) mg/dL Glucose (74-99) mg/dL POC Glucose (mg/dL) 194 H 217 H (75-99) mg/dL AST (14-36) U/L ALT (4-34) U/L Alkaline Phosphatase (38-126) U/L Lactate Dehydrogenase (313-618) U/L Creatine Kinase (30-135) U/L Total Protein (6.3-8.2) g/dL Albumin (3.5-5.0) g/dL Microbiology - Last 24 Hours (Table) 12/19/19 00:00 Gram Stain - Preliminary Sputum Sputum Culture - Preliminary Assessment and Plan Assessment: -Acute COVID-19 multifocal pneumonia -Acute hypoxic and hypercapnic respiratory failure secondary to the above, ventilator dependent -Acute sepsis with septic shock secondary to #1 -Hypotension, status post pressor dependent, secondary to the above, currently resolved -Diabetes mellitus, type II -Myasthenia gravis, currently in remission, intolerant to [place], monthly treatments with IVIG -History of multiple sclerosis -Morbid obesity, BMI 50.6 -Diabetes mellitus, uncontrolled, hyperglycemic on insulin drip -Gastroesophageal reflux disease -History of hypertension -Osteoarthritis -Anxiety -Former nicotine dependence -Glaucoma -Seizure disorder -Acute on chronic renal failure, stage III, baseline 1.1, improving -Chronic diastolic CHF -Anemia of chronic disease, possibly mildly acute secondary to sepsis. Plan: Continue on current medication regime , PPI, monitoring and symptomatic treatment. Continues on 16 hours prone, 8 hours supine as per forestry aide. Maintain IV Solu-Cortef, Zithromax, Rocephin, Lovenox. follow closely with multiple consults .Prognosis guarded given multiple complex medical issues. The impression and plan of care has been dictated as directed. : I performed a history and examination of this patient, discussed the same with the dictator. I agree with the dictator's note ,documented as a scribe. Any additional findings or plans will be noted.
[2019-12-20 14:32] LABS: Glucose,Whole Blood 209 mg/dL (75-99)
--- NOTE | 2019-12-20 14:44 | P.PN ---
Subjective Progress Note Date: 12/20/19 Patient still intubated. Patient is heavily sedated. Cannot assess underlying myasthenic symptoms. According to the nursing report, patient's pulmonary condition is somewhat stable since yesterday. At present patient is on propofol 75 g and 2.0 fentanyl for sedation. Patient has been placed in the supine position, and did not desaturate. She is currently on 60% FiO2 and saturating 99%. Her chest x-ray still shows evidence of ARDS. Objective - Vital Signs Vital signs: Vital Signs Temp 99.2 F 12/20/19 12:00 Pulse 78 12/20/19 13:00 Resp 26 H 12/20/19 13:00 BP 142/81 12/20/19 13:00 Pulse Ox 99 12/20/19 13:00 Intake & Output 12/19/19 12/20/19 12/20/19 18:59 06:59 18:59 Intake Total 2997.684 3335.669 3037.739 Output Total 2160 1470 1135 Balance 837.684 -185.898 251.739 Weight 130.8 kg 130.8 kg Intake: IV 2074 385 1893 Azithromycin 500 mg In 1250 500 Sodium Chloride 0.9% 250 ml @ 250 mls/hr IVPB DAILY [facility] Rx#:[id number] Pressure Bag 33 36 21 Sodium Chloride 0.9% 1, 550 600 350 000 ml @ 50 mls/hr IV . Q20H [facility] Rx#:[id number] cefTRIAXone 1 gm In 150 200 Sodium Chloride 0.9% 50 ml @ 100 mls/hr IVPB Q24HR [facility] Rx#:[id number] Intake, IV Titration 426.684 612.102 225.739 Amount Insulin Regular 100 unit 27.490 33.751 24.761 In Sodium Chloride 0.9% 100 ml @ Per Protocol IV .Q0M [facility] Rx#:[id number] Potassium Chloride 20 meq 300 In Water For Injection 1 100ml.bag @ 50 mls/hr IVPB Q2H [facility] Rx#: [id number] Propofol 1,000 mg In 299.194 278.351 100.978 Empty Bag 1 bag @ Titrate IV .Q0M [facility] Rx#: [id number] fentaNYL (PF) 1,000 mcg 100.000 100 In Sodium Chloride 0.9% 80 ml @ 1 MCG/KG/HR 8.39 mls/hr IV .[id number] [facility] Rx #:[id number] Tube Feeding 168 36 60 Other 420 30 Output: Urine 2160 1470 1135 Other: Voiding Method Indwelling Catheter Indwelling Catheter Indwelling Catheter # Voids 1 0 ABP, PAP, CO, CI - Last Documented Arterial Blood Pressure 186/75 - Exam Patient on mechanical ventilation, sedated. - Labs CBC & Chem 7: 12/20/19 05:30 12/20/19 05:30 Labs: Abnormal Lab Results - Last 24 Hours (Table) 12/19/19 12/19/19 12/19/19 Range/Units 16:16 18:16 20:02 RBC (3.80-5.40) m/uL Hgb (11.4-16.0) gm/dL Hct (34.0-46.0) % RDW (11.5-15.5) % Metamyelocytes # (Man) (0) k/uL Myelocytes # (Manual) (0) k/uL Nucleated RBCs (0-0) /100 WBC ABG pH (7.35-7.45) ABG HCO3 (21-25) mmol/L ABG Total CO2 (19-24) mmol/L ABG O2 Saturation (94-97) % Potassium (3.5-5.1) mmol/L Carbon Dioxide (22-30) mmol/L BUN (7-17) mg/dL Glucose (74-99) mg/dL POC Glucose (mg/dL) 144 H 154 H 178 H (75-99) mg/dL AST (14-36) U/L ALT (4-34) U/L Alkaline Phosphatase (38-126) U/L Lactate Dehydrogenase (313-618) U/L Creatine Kinase (30-135) U/L Total Protein (6.3-8.2) g/dL Albumin (3.5-5.0) g/dL 12/19/19 12/19/19 12/19/19 Range/Units 21:53 23:00 23:41 RBC (3.80-5.40) m/uL Hgb (11.4-16.0) gm/dL Hct (34.0-46.0) % RDW (11.5-15.5) % Metamyelocytes # (Man) (0) k/uL Myelocytes # (Manual) (0) k/uL Nucleated RBCs (0-0) /100 WBC ABG pH (7.35-7.45) ABG HCO3 (21-25) mmol/L ABG Total CO2 (19-24) mmol/L ABG O2 Saturation (94-97) % Potassium 3.2 L (3.5-5.1) mmol/L Carbon Dioxide (22-30) mmol/L BUN (7-17) mg/dL Glucose (74-99) mg/dL POC Glucose (mg/dL) 170 H 140 H (75-99) mg/dL AST (14-36) U/L ALT (4-34) U/L Alkaline Phosphatase (38-126) U/L Lactate Dehydrogenase (313-618) U/L Creatine Kinase (30-135) U/L Total Protein (6.3-8.2) g/dL Albumin (3.5-5.0) g/dL 12/19/19 12/20/19 12/20/19 Range/Units 23:58 02:07 04:15 RBC (3.80-5.40) m/uL Hgb (11.4-16.0) gm/dL Hct (34.0-46.0) % RDW (11.5-15.5) % Metamyelocytes # (Man) (0) k/uL Myelocytes # (Manual) (0) k/uL Nucleated RBCs (0-0) /100 WBC ABG pH (7.35-7.45) ABG HCO3 (21-25) mmol/L ABG Total CO2 (19-24) mmol/L ABG O2 Saturation (94-97) % Potassium (3.5-5.1) mmol/L Carbon Dioxide (22-30) mmol/L BUN (7-17) mg/dL Glucose (74-99) mg/dL POC Glucose (mg/dL) 130 H 121 H 115 H (75-99) mg/dL AST (14-36) U/L ALT (4-34) U/L Alkaline Phosphatase (38-126) U/L Lactate Dehydrogenase (313-618) U/L Creatine Kinase (30-135) U/L Total Protein (6.3-8.2) g/dL Albumin (3.5-5.0) g/dL 12/20/19 12/20/19 12/20/19 Range/Units 05:30 05:30 05:32 RBC 3.77 L (3.80-5.40) m/uL Hgb 10.2 L (11.4-16.0) gm/dL Hct 31.0 L (34.0-46.0) % RDW 15.9 H (11.5-15.5) % Metamyelocytes # (Man) 0.53 H (0) k/uL Myelocytes # (Manual) 0.05 H (0) k/uL Nucleated RBCs 1 H (0-0) /100 WBC ABG pH 7.49 H (7.35-7.45) ABG HCO3 34 H (21-25) mmol/L ABG Total CO2 36 H (19-24) mmol/L ABG O2 Saturation 97.5 H (94-97) % Potassium (3.5-5.1) mmol/L Carbon Dioxide 34 H (22-30) mmol/L BUN 30 H (7-17) mg/dL Glucose 118 H (74-99) mg/dL POC Glucose (mg/dL) (75-99) mg/dL AST 85 H (14-36) U/L ALT 97 H (4-34) U/L Alkaline Phosphatase 208 H (38-126) U/L Lactate Dehydrogenase 1835 H (313-618) U/L Creatine Kinase 321 H (30-135) U/L Total Protein 5.7 L (6.3-8.2) g/dL Albumin 3.0 L (3.5-5.0) g/dL 12/20/19 12/20/19 12/20/19 Range/Units 06:03 08:18 09:29 RBC (3.80-5.40) m/uL Hgb (11.4-16.0) gm/dL Hct (34.0-46.0) % RDW (11.5-15.5) % Metamyelocytes # (Man) (0) k/uL Myelocytes # (Manual) (0) k/uL Nucleated RBCs (0-0) /100 WBC ABG pH (7.35-7.45) ABG HCO3 (21-25) mmol/L ABG Total CO2 (19-24) mmol/L ABG O2 Saturation (94-97) % Potassium (3.5-5.1) mmol/L Carbon Dioxide (22-30) mmol/L BUN (7-17) mg/dL Glucose (74-99) mg/dL POC Glucose (mg/dL) 109 H 122 H 134 H (75-99) mg/dL AST (14-36) U/L ALT (4-34) U/L Alkaline Phosphatase (38-126) U/L Lactate Dehydrogenase (313-618) U/L Creatine Kinase (30-135) U/L Total Protein (6.3-8.2) g/dL Albumin (3.5-5.0) g/dL 12/20/19 12/20/19 12/20/19 Range/Units 10:17 12:03 13:03 RBC (3.80-5.40) m/uL Hgb (11.4-16.0) gm/dL Hct (34.0-46.0) % RDW (11.5-15.5) % Metamyelocytes # (Man) (0) k/uL Myelocytes # (Manual) (0) k/uL Nucleated RBCs (0-0) /100 WBC ABG pH (7.35-7.45) ABG HCO3 (21-25) mmol/L ABG Total CO2 (19-24) mmol/L ABG O2 Saturation (94-97) % Potassium (3.5-5.1) mmol/L Carbon Dioxide (22-30) mmol/L BUN (7-17) mg/dL Glucose (74-99) mg/dL POC Glucose (mg/dL) 162 H 194 H 217 H (75-99) mg/dL AST (14-36) U/L ALT (4-34) U/L Alkaline Phosphatase (38-126) U/L Lactate Dehydrogenase (313-618) U/L Creatine Kinase (30-135) U/L Total Protein (6.3-8.2) g/dL Albumin (3.5-5.0) g/dL 12/20/19 Range/Units 14:30 RBC (3.80-5.40) m/uL Hgb (11.4-16.0) gm/dL Hct (34.0-46.0) % RDW (11.5-15.5) % Metamyelocytes # (Man) (0) k/uL Myelocytes # (Manual) (0) k/uL Nucleated RBCs (0-0) /100 WBC ABG pH (7.35-7.45) ABG HCO3 (21-25) mmol/L ABG Total CO2 (19-24) mmol/L ABG O2 Saturation (94-97) % Potassium (3.5-5.1) mmol/L Carbon Dioxide (22-30) mmol/L BUN (7-17) mg/dL Glucose (74-99) mg/dL POC Glucose (mg/dL) 209 H (75-99) mg/dL AST (14-36) U/L ALT (4-34) U/L Alkaline Phosphatase (38-126) U/L Lactate Dehydrogenase (313-618) U/L Creatine Kinase (30-135) U/L Total Protein (6.3-8.2) g/dL Albumin (3.5-5.0) g/dL Microbiology - Last 24 Hours (Table) 12/19/19 00:00 Gram Stain - Preliminary Sputum Sputum Culture - Preliminary Assessment and Plan Assessment: * Myasthenia gravis. Patient is status post treatment with IVIG about a month ago for myasthenia gravis exacerbation. Current myasthenia gravis status uncertain, as patient is sedated. * Acute multifocal pneumonia, due to Covid-19. * Diabetes poorly controlled * Obesity Plan: * Patient's myasthenia gravis cannot be assessed at this time. Examination limited due to patient being sedated. * Treatment of COVID as per ID and critical care. * If she develops any signs of myasthenia gravis exacerbation, after resolution of pneumonia, we will consider treatment with IVIG. * Your medical management.
--- NOTE | 2019-12-20 14:51 | XR ---
EXAMINATION TYPE: XR chest 1V confirm line [facility] DATE OF EXAM: 12/20/2019 COMPARISON: 12/20/2019 HISTORY: 59-year-old female postcentral line placement TECHNIQUE: Single frontal view of the chest is obtained. FINDINGS: ET tube tip at the level of the medial clavicular heads. Consider slight advancement. NG t ube courses below the diaphragm. Left CVC tip lower SVC region. Stable positioning of the right CVC, tip in the lower IJV. Heart borderline enlarged. Diffuse interstitial and faint airspace opacities th roughout with improving aeration as compared to earlier today. No sizable effusion. IMPRESSION: 1. New left-sided CVC, tip in the lower SVC/cavoatrial junction region. 2. Stable positioning of the right CVC, tip in the lower right IJV. 3. Stable ET tube, tip just above the medial clavicular heads. Consider slight advancement and reasse ssed at follow-up. 3. Generalized interstitial and hazy airspace densities with improving aeration as compared to prior.
[2019-12-20 15:27] LABS: Glucose,Whole Blood 167 mg/dL (75-99)
[2019-12-20 16:28] LABS: Glucose,Whole Blood 142 mg/dL (75-99)
[2019-12-20 17:37] LABS: Glucose,Whole Blood 139 mg/dL (75-99)
[2019-12-20 18:30] LABS: Glucose,Whole Blood 127 mg/dL (75-99)
[2019-12-20] MEDS: NOREPINEPHRINE 4 MG in SODIUM CHLORIDE 0.9% 250 ML IV SCH (18:45)
[2019-12-20 18:57] LABS: Glucose,Whole Blood 150 mg/dL (75-99)
--- NOTE | 2019-12-20 19:05 | PN ---
PROGRESS NOTE DATE OF SERVICE: 12/20/2019 REASON FOR FOLLOWUP: Acute COVID-19 pneumonia. INTERVAL HISTORY: The patient is currently afebrile. The patient is hemodynamically stable, not requiring any pressor support. FiO2 is currently at 50%. PEEP has to be up to 22. No purulent secretion through the ET or any diarrhea reported by the nursing staff. PHYSICAL EXAMINATION: Blood pressure 133/78 with a pulse of 72, temperature 99. She is 97% on 50% FiO2. General description is a middle-aged female lying in bed in no distress, intubated on the vent. RESPIRATORY SYSTEM: Unlabored breathing with decreased breath sounds at the base. No wheeze. HEART: S1, S2. Regular rate and rhythm. ABDOMEN: Soft. No tenderness. LABS: Hemoglobin is 10.8, white count 5.3, BUN of 30, creatinine 0.70. DIAGNOSTIC IMPRESSION AND PLAN: Patient with acute respiratory failure which is likely multifactorial in this patient who did have a component of acute COVID and pneumonia. Patient has completed a 5- day course of Plaquenil and zinc. Continue with respiratory support and Lovenox and monitor her clinical course closely. MMODL / IJN: [id number] /
[2019-12-20 20:09] LABS: Glucose,Whole Blood 136 mg/dL (75-99)
--- NOTE | 2019-12-20 20:17 | PCN ---
PROCEDURE NOTE PROCEDURE: Internal jugular triple lumen catheter. PREOPERATIVE DIAGNOSIS: Administration of fluids and pressors. POSTOPERATIVE DIAGNOSIS: Administration of fluids and pressors. OPERATORS: 1. Dr. Hawthorne. 2. Dr. Ronquillo. TRIPLE LUMEN CATHETER PLACEMENT: Indication: Hemodynamic monitoring/Intravenous access. A time-out was completed verifying correct patient, procedure, site, positioning, and implant(s) or special equipment if applicable. The patient was placed in a dependent position appropriate for triple lumen catheter placement based on the vein to be cannulated. The patient's left neck was prepped and draped in sterile fashion. 1% Lidocaine was used to anesthetize the surrounding skin area. A triple lumen 9F Cordis catheter was introduced into the left internal jugular vein using posterior technique. The catheter was threaded smoothly over the guide wire and appropriate blood return was obtained. Each lumen of the catheter was evacuated of air and flushed with sterile saline. The catheter was then sutured in place to the skin and a sterile dressing applied. Perfusion to the extremity distal to the point of catheter insertion was checked and found to be adequate. There were no immediate complications. There was good blood return from all 3 ports. The tip of the catheter was seen at the junction of the right atrium and superior vena cava. There was good blood return from all 3 ports. The catheter was sutured into place. A sterile dressing was applied by the nurse. There was no immediate complication and the patient tolerated the procedure very well. MMODL / IJN: [id number] /
--- NOTE | 2019-12-20 20:41 | PCN ---
PROCEDURE NOTE DATE OF PROCEDURE: 12/20/2019 PROCEDURE: Left radial arterial line insertion. PREOPERATIVE DIAGNOSIS: Hemodynamic monitoring, hypotension. POSTOPERATIVE DIAGNOSIS: Hemodynamic monitoring, hypotension. ARTERIAL LINE PLACEMENT: Indications: Hemodynamic monitoring. A time-out was completed verifying correct patient, procedure, site, positioning, and implant(s) or special equipment if applicable. Nilson's test was performed to ensure adequate perfusion. The patient's left wrist was prepped and draped in sterile fashion. 1% Lidocaine was used to anesthetize the area. An 18G Arrow arterial line was introduced into the radial/femoral artery. The catheter was threaded over the guide wire and the needle was removed with appropriate pulsatile blood return. Blood loss was minimal. The catheter was then sutured in place to the skin and a sterile dressing applied. Perfusion to the extremity distal to the point of catheter insertion was checked and found to be adequate. The patient tolerated the procedure well and there were no complications. MMODL / IJN: [id number] /
[2019-12-20] MEDS: INSULIN REGULAR 100 UNIT in SODIUM CHLORIDE 0.9% 100 ML IV SCH (21:20)
[2019-12-20 22:36] LABS: Glucose,Whole Blood 150 mg/dL (75-99)
[2019-12-20 23:56] LABS: Glucose,Whole Blood 131 mg/dL (75-99)
[2019-12-21] MEDS: PROPOFOL 1,000 MG in EMPTY BAG 1 BAG IV SCH ×14 (00:20→23:46)
[2019-12-21] MEDS: HYDROCORTISONE SUCCINATE 100 MG/2 ML VIAL IV SCH ×4 (01:11→23:44)
[2019-12-21] MEDS: POTASSIUM CHLORIDE 20 MEQ in WATER FOR INJECTION 1 100ML.BAG IVPB SCH ×2 (01:11→02:50)
[2019-12-21 02:00] LABS: Glucose,Whole Blood 137 mg/dL (75-99)
[2019-12-21] MEDS: SODIUM CHLORIDE 0.9% 1,000 ML IV SCH ×2 (02:57→21:34)
[2019-12-21] MEDS: fentaNYL (PF) 1,000 MCG in SODIUM CHLORIDE 0.9% 80 ML IV SCH ×4 (03:11→18:32)
[2019-12-21 04:04] LABS: Glucose,Whole Blood 173 mg/dL (75-99)
[2019-12-21 05:18] LABS: ABG Base Excess 7.1 mmol/L; ABG HCO3 32 mmol/L (21-25); ABG Oxygen Saturation 99.3 % (94-97); ABG PCO2 49 mmHg (35-45); ABG PH 7.42 (7.35-7.45); ABG PO2 170 mmHg (83-108); ABG TCO2 33 mmol/L (19-24); Allen Test Performed? Yes
[2019-12-21] MEDS: NOREPINEPHRINE 4 MG in SODIUM CHLORIDE 0.9% 250 ML IV SCH (05:23)
[2019-12-21 05:51] LABS: Glucose,Whole Blood 167 mg/dL (75-99)
[2019-12-21 06:26] LABS: Carbon Dioxide 31 mmol/L (22-30); Chloride 103 mmol/L (98-107); Glucose 164 mg/dL (74-99); Potassium 3.8 mmol/L (3.5-5.1); Sodium 133 mmol/L (137-145)
[2019-12-21 06:27] LABS: ALT 87 U/L (4-34); AST 67 U/L (14-36); African American GFR (CKD) >90 (>60 ml/min/1.73 sqM); Alkaline Phosphatase 213 U/L (38-126); Anion Gap -1 mmol/L; Blood Urea Nitrogen 28 mg/dL (7-17); C Reactive Protein 6.5 mg/L (<10.0); Calcium 8.6 mg/dL (8.4-10.2); Creatine Kinase 173 U/L (30-135); LDH 1529 U/L (313-618); Non-African American GFR(CKD) 79 (>60 ml/min/1.73 sqM); Total Bilirubin 0.5 mg/dL (0.2-1.3); Total Protein 5.4 g/dL (6.3-8.2)
[2019-12-21 06:28] LABS: Basophils % (A) 0 %; Eosinophils # (A) 0.1 k/uL (0-0.7); Eosinophils % (A) 2 %; HCT 30.8 % (34.0-46.0); Hypochromasia Marked; Lymphocytes # (A) 0.7 k/uL (1.0-4.8); Lymphocytes % (A) 12 %; MCH 27.2 pg (25.0-35.0); MCHC 32.5 g/dL (31.0-37.0); Mean Platelet Volume 8.3; Monocytes # (A) 0.3 k/uL (0-1.0); Monocytes % (A) 5 %; Neutrophils # (A) 4.4 k/uL (1.3-7.7); Neutrophils % (A) 80 %; Platelet Count 303 k/uL (150-450); Poikilocytosis Slight; RBC 3.67 m/uL (3.80-5.40); RDW 15.8 % (11.5-15.5); WBC 5.5 k/uL (3.8-10.6)
--- NOTE | 2019-12-21 07:57 | XR ---
EXAMINATION TYPE: XR chest 1V portable DATE OF EXAM: 12/21/2019 COMPARISON: 12/20/2019 INDICATION: Covid 19, pneumonia TECHNIQUE: Single frontal view of the chest is obtained. FINDINGS: The heart size is normal. The pulmonary vasculature is slightly indistinct.. Diffuse increased lung markings and groundglass opacity appears to be present bilaterally. This may b e increasing at the right base and left base. Endotracheal tube tip is above the baylee. Nasogastric tube transverses the thorax. Left central veno us catheter has its tip in the superior vena cava region. Right central venous catheter tip appears t o be in the proximal superior vena cava. IMPRESSION: 1. Diffuse opacification over the bilateral lung field slightly worsening over the interval. This is more focal in the right lower lobe. 2. Lines and catheters discussed above.
[2019-12-21] MEDS: PANTOPRAZOLE 40 MG/10 ML VIAL IVP SCH (08:38)
[2019-12-21] MEDS: ENOXAPARIN 120 MG/0.8 ML SYRINGE SQ SCH ×2 (08:38→21:32)
[2019-12-21] MEDS: FUROSEMIDE 10 MG/ML 4 ML VIAL IV SCH ×2 (08:38→21:33)
[2019-12-21] MEDS: levETIRAcetam ORAL SOLN 500 MG/5 ML CUP PO SCH ×2 (08:38→21:32)
[2019-12-21] MEDS: CHLORHEXIDINE GLUCONATE 15 ML CUP MUCOUS MEM SCH ×2 (08:38→21:31)
[2019-12-21 10:30] LABS: Ferritin 96.7 ng/mL (10.0-291.0)
[2019-12-21 11:32] LABS: Glucose,Whole Blood 137 mg/dL (75-99)
[2019-12-21 13:14] LABS: Glucose,Whole Blood 141 mg/dL (75-99)
--- NOTE | 2019-12-21 15:17 | XR ---
EXAMINATION TYPE: XR chest 1V DATE OF EXAM: 12/21/2019 COMPARISON: 12/21/2019 HISTORY: SOB, Follow Up FINDINGS: NG tube has been removed. Central venous lines unchanged. Endotracheal tube is in satisfactory positi on. Increasing consolidation right lower lobe. Scattered interstitial infiltrates seen throughout both heidi ng solitario. Stable appearance of the cardio-mediastinal structures at this time. Pleural effusion unchanged. IMPRESSION: 1. Increasing consolidation right lower lobe. Scattered interstitial infiltrates seen throughout bot h lung solitario.
[2019-12-21 15:18] LABS: Glucose,Whole Blood 149 mg/dL (75-99)
--- NOTE | 2019-12-21 15:51 | P.PN ---
Subjective Progress Note Date: 12/21/19 Patient still intubated. Patient is heavily sedated. Cannot assess underlying myasthenic symptoms. According to the nursing report, patient's pulmonary condition has again slightly got worse. Patient is requiring higher deep 22 instead of 18 previously. FiO2 has been decreased to 40% however. Chest x-ray appears slightly worse. At present patient is on propofol 75 g and 2.0 fentanyl for sedation. Patient has been placed in the supine position. Objective - Vital Signs Vital signs: Vital Signs Temp 98.2 F 12/21/19 04:00 Pulse 70 12/21/19 11:00 Resp 26 H 12/21/19 11:00 BP 118/67 12/21/19 11:00 Pulse Ox 97 12/21/19 11:00 Intake & Output 12/20/19 12/21/19 12/21/19 18:59 06:59 18:59 Intake Total 2493.726 1673.274 782.633 Output Total 1525 1385 845 Balance 968.726 288.274 -62.367 Weight 130.8 kg 130.4 kg 130.4 kg Intake: IV 1889 583 315 Azithromycin 500 mg In 1000 Sodium Chloride 0.9% 250 ml @ 250 mls/hr IVPB DAILY [facility] Rx#:[id number] Pressure Bag 39 33 15 Sodium Chloride 0.9% 1, 650 550 250 000 ml @ 50 mls/hr IV . Q20H [facility] Rx#:[id number] cefTRIAXone 1 gm In 200 50 Sodium Chloride 0.9% 50 ml @ 100 mls/hr IVPB Q24HR [facility] Rx#:[id number] Intake, IV Titration 430.726 868.274 407.633 Amount Insulin Regular 100 unit 40.467 46.561 46.056 In Sodium Chloride 0.9% 100 ml @ Per Protocol IV .Q0M [facility] Rx#:[id number] Potassium Chloride 20 meq 300 In Water For Injection 1 100ml.bag @ 50 mls/hr IVPB Q2H [facility] Rx#: [id number] Propofol 1,000 mg In 202.444 352.794 195.455 Empty Bag 1 bag @ Titrate IV .Q0M [facility] Rx#: [id number] fentaNYL (PF) 1,000 mcg 187.815 168.919 166.122 In Sodium Chloride 0.9% 80 ml @ 1 MCG/KG/HR 8.39 mls/hr IV .[id number] [facility] Rx #:[id number] Tube Feeding 144 132 60 Other 30 90 Output: Urine 1525 1385 845 Other: Voiding Method Indwelling Catheter Indwelling Catheter Indwelling Catheter # Voids 0 ABP, PAP, CO, CI - Last Documented Arterial Blood Pressure 64/58 - Exam Patient on mechanical ventilation, sedated. - Labs CBC & Chem 7: 12/21/19 05:50 12/21/19 05:50 Labs: Abnormal Lab Results - Last 24 Hours (Table) 12/20/19 12/20/19 12/20/19 Range/Units 16:26 17:36 18:05 RBC (3.80-5.40) m/uL Hgb (11.4-16.0) gm/dL Hct (34.0-46.0) % RDW (11.5-15.5) % Lymphocytes # (1.0-4.8) k/uL D-Dimer (<0.60) mg/L FEU ABG pCO2 (35-45) mmHg ABG pO2 (83-108) mmHg ABG HCO3 (21-25) mmol/L ABG Total CO2 (19-24) mmol/L ABG O2 Saturation (94-97) % Sodium (137-145) mmol/L Potassium 3.0 L (3.5-5.1) mmol/L Carbon Dioxide (22-30) mmol/L BUN (7-17) mg/dL Glucose (74-99) mg/dL POC Glucose (mg/dL) 142 H 139 H (75-99) mg/dL AST (14-36) U/L ALT (4-34) U/L Alkaline Phosphatase (38-126) U/L Lactate Dehydrogenase (313-618) U/L Creatine Kinase (30-135) U/L Total Protein (6.3-8.2) g/dL Albumin (3.5-5.0) g/dL 12/20/19 12/20/19 12/20/19 Range/Units 18:28 18:55 20:06 RBC (3.80-5.40) m/uL Hgb (11.4-16.0) gm/dL Hct (34.0-46.0) % RDW (11.5-15.5) % Lymphocytes # (1.0-4.8) k/uL D-Dimer (<0.60) mg/L FEU ABG pCO2 (35-45) mmHg ABG pO2 (83-108) mmHg ABG HCO3 (21-25) mmol/L ABG Total CO2 (19-24) mmol/L ABG O2 Saturation (94-97) % Sodium (137-145) mmol/L Potassium (3.5-5.1) mmol/L Carbon Dioxide (22-30) mmol/L BUN (7-17) mg/dL Glucose (74-99) mg/dL POC Glucose (mg/dL) 127 H 150 H 136 H (75-99) mg/dL AST (14-36) U/L ALT (4-34) U/L Alkaline Phosphatase (38-126) U/L Lactate Dehydrogenase (313-618) U/L Creatine Kinase (30-135) U/L Total Protein (6.3-8.2) g/dL Albumin (3.5-5.0) g/dL 12/20/19 12/20/19 12/21/19 Range/Units 22:34 23:55 01:58 RBC (3.80-5.40) m/uL Hgb (11.4-16.0) gm/dL Hct (34.0-46.0) % RDW (11.5-15.5) % Lymphocytes # (1.0-4.8) k/uL D-Dimer (<0.60) mg/L FEU ABG pCO2 (35-45) mmHg ABG pO2 (83-108) mmHg ABG HCO3 (21-25) mmol/L ABG Total CO2 (19-24) mmol/L ABG O2 Saturation (94-97) % Sodium (137-145) mmol/L Potassium (3.5-5.1) mmol/L Carbon Dioxide (22-30) mmol/L BUN (7-17) mg/dL Glucose (74-99) mg/dL POC Glucose (mg/dL) 150 H 131 H 137 H (75-99) mg/dL AST (14-36) U/L ALT (4-34) U/L Alkaline Phosphatase (38-126) U/L Lactate Dehydrogenase (313-618) U/L Creatine Kinase (30-135) U/L Total Protein (6.3-8.2) g/dL Albumin (3.5-5.0) g/dL 12/21/19 12/21/19 12/21/19 Range/Units 04:02 05:10 05:48 RBC (3.80-5.40) m/uL Hgb (11.4-16.0) gm/dL Hct (34.0-46.0) % RDW (11.5-15.5) % Lymphocytes # (1.0-4.8) k/uL D-Dimer (<0.60) mg/L FEU ABG pCO2 49 H (35-45) mmHg ABG pO2 170 H (83-108) mmHg ABG HCO3 32 H (21-25) mmol/L ABG Total CO2 33 H (19-24) mmol/L ABG O2 Saturation 99.3 H (94-97) % Sodium (137-145) mmol/L Potassium (3.5-5.1) mmol/L Carbon Dioxide (22-30) mmol/L BUN (7-17) mg/dL Glucose (74-99) mg/dL POC Glucose (mg/dL) 173 H 167 H (75-99) mg/dL AST (14-36) U/L ALT (4-34) U/L Alkaline Phosphatase (38-126) U/L Lactate Dehydrogenase (313-618) U/L Creatine Kinase (30-135) U/L Total Protein (6.3-8.2) g/dL Albumin (3.5-5.0) g/dL 12/21/19 12/21/19 12/21/19 Range/Units 05:50 05:50 05:50 RBC 3.67 L (3.80-5.40) m/uL Hgb 10.0 L (11.4-16.0) gm/dL Hct 30.8 L (34.0-46.0) % RDW 15.8 H (11.5-15.5) % Lymphocytes # 0.7 L (1.0-4.8) k/uL D-Dimer 1.95 H (<0.60) mg/L FEU ABG pCO2 (35-45) mmHg ABG pO2 (83-108) mmHg ABG HCO3 (21-25) mmol/L ABG Total CO2 (19-24) mmol/L ABG O2 Saturation (94-97) % Sodium 133 L (137-145) mmol/L Potassium (3.5-5.1) mmol/L Carbon Dioxide 31 H (22-30) mmol/L BUN 28 H (7-17) mg/dL Glucose 164 H (74-99) mg/dL POC Glucose (mg/dL) (75-99) mg/dL AST 67 H (14-36) U/L ALT 87 H (4-34) U/L Alkaline Phosphatase 213 H (38-126) U/L Lactate Dehydrogenase 1529 H (313-618) U/L Creatine Kinase 173 H (30-135) U/L Total Protein 5.4 L (6.3-8.2) g/dL Albumin 3.0 L (3.5-5.0) g/dL 12/21/19 12/21/19 12/21/19 Range/Units 11:30 13:13 15:16 RBC (3.80-5.40) m/uL Hgb (11.4-16.0) gm/dL Hct (34.0-46.0) % RDW (11.5-15.5) % Lymphocytes # (1.0-4.8) k/uL D-Dimer (<0.60) mg/L FEU ABG pCO2 (35-45) mmHg ABG pO2 (83-108) mmHg ABG HCO3 (21-25) mmol/L ABG Total CO2 (19-24) mmol/L ABG O2 Saturation (94-97) % Sodium (137-145) mmol/L Potassium (3.5-5.1) mmol/L Carbon Dioxide (22-30) mmol/L BUN (7-17) mg/dL Glucose (74-99) mg/dL POC Glucose (mg/dL) 137 H 141 H 149 H (75-99) mg/dL AST (14-36) U/L ALT (4-34) U/L Alkaline Phosphatase (38-126) U/L Lactate Dehydrogenase (313-618) U/L Creatine Kinase (30-135) U/L Total Protein (6.3-8.2) g/dL Albumin (3.5-5.0) g/dL Microbiology - Last 24 Hours (Table) 12/19/19 00:00 Gram Stain - Final Sputum Sputum Culture - Final Assessment and Plan Assessment: * Myasthenia gravis. Patient is status post treatment with IVIG about a month ago for myasthenia gravis exacerbation. Current myasthenia gravis status uncertain, as patient is sedated. * Acute multifocal pneumonia, due to Covid-19. * Diabetes poorly controlled * Obesity Plan: * Patient's myasthenia gravis cannot be assessed at this time. Examination limited due to patient being sedated. * Treatment of COVID as per ID and critical care. * If she develops any signs of myasthenia gravis exacerbation, after resolution of pneumonia, we will consider treatment with IVIG. * Your medical management.
--- NOTE | 2019-12-21 15:56 | PN ---
PROGRESS NOTE PULMONARY/CRITICAL CARE PROGRESS NOTE: DATE OF SERVICE: 12/21/2019 Critical care time is greater than 30 minutes. This is a 59-year-old female who was admitted with a diagnosis of acute hypoxemic respiratory failure secondary to COVID-19 pneumonia back on December 12, 2019. She remains in the ICU critically ill. The patient did receive 2 doses of the monoclonal antibody against interleukin-6. The patient has been proning for anywhere from 12 to 16 hours per day. She is maintained on a mechanical ventilator. Currently, her vent settings include the volume assist-control mode rate of 26, tidal volume 400, FiO2 50%, PEEP of 22. Blood gases show pO2 of 170, pCO2 of 49 and a pH of 7.42. I have asked the respiratory therapist to drop the FiO2 back from 50% to 40%. Sometime later today we will make a PEEP change from 22 to 18. Currently she remains on fentanyl at 2 mcg/kg per hour, insulin at 6 units/hour, propofol at 75 mcg/kg per minute, 0.9 at 50 mL/hour and tube feeds with Vital High Protein at 12 with a goal of 12 mL/hour. She had a new arterial line and central line placed yesterday. The patient is currently on Rocephin and Levophed, and those are going to be discontinued. Cultures are thus far negative. In addition, she has a history of myasthenia gravis, acute sepsis with septic shock, type 2 diabetes and morbid obesity. PHYSICAL EXAMINATION: VITAL SIGNS: Current vital signs are reviewed. Her temperature is 98.2, heart rate 70, respiratory rate 26, blood pressure 118/67, mean 84, and saturations are 97%. GENERAL APPEARANCE: Appears in no acute distress. Currently sedated heavily. HEENT: Examination is grossly unremarkable. She has an orally placed endotracheal tube and NG tube. It appears that she probably has an endotracheal tube leak, and that will need to be changed by Anesthesia probably using a stylet. NECK: Supple. Full range of motion. No adenopathy or thyromegaly. Neck veins are flat. CARDIOVASCULAR: Examination reveals regular rhythm and rate. Heart rate 70 beats per minute. Heart sounds are distant. No murmur. LUNGS: Diffuse bilateral rhonchi. Breath sounds are equal. No crackles. No wheezes. ABDOMEN: Obese. Bowel sounds are heard. EXTREMITIES: Intact. There is slight edema. SKIN: Without rash. No other lesions noted. NEUROLOGIC: Neurologic examination is difficult to assess, given her current level of sedation. LABS/IMAGING: Reviewed. White count 5.5, hemoglobin 10, hematocrit 30.8, platelet count 330,000. D- dimer 1.95. Blood gases have already been noted. FiO2 was turned from 50% to 40%. We will make a PEEP change later today. Sodium 133, potassium 3.8, chloride 103, CO2 31. BUN and creatinine were 28 and 0.82. AST 67, ALT 87, alkaline phosphatase 213. LDH 1529. Creatine kinase 173. Albumin 3.0. Chest x-ray from today shows bilateral diffuse infiltrates. They are slightly worsened today compared to yesterday. There is more density of the infiltrates in the right lower lobe. Microbiology is thus far all negative. CURRENT MEDICATIONS: Reviewed. She is on Tylenol, chlorhexidine, Lovenox, fentanyl, Lasix, Solu-Cortef, saline IV, Keppra, Narcan, Protonix, potassium replacement and Diprivan. ASSESSMENT: 1. Acute hypoxemic and hypercapnic respiratory failure secondary to COVID-19 pneumonia. No evidence of superinfection with any bacterial pathogens at this time. Antibiotics will be discontinued. 2. Failure to wean from mechanical ventilation. 3. Severe acute respiratory distress syndrome requiring proning of the patient from 12 to 16 hours a day. 4. History of myasthenia gravis. 5. Acute sepsis and septic shock secondary to pneumonia, improved. 6. Type 2 diabetes mellitus. 7. Morbid obesity. 8. New lines placed December 20, 2019. 9. Endotracheal cuff leak, with anticipated change by Anesthesia today. PLAN: The patient's PEEP will be turned down to 18 later today. Earlier today the FiO2 was dropped from 50% to 40%. Will discontinue the Rocephin and Levaquin after next doses. New lines were placed yesterday. Will ask Anesthesia to use a stylet to replace endotracheal tube. Gases are reviewed. Medications are reviewed. No additional recommendations are made. Prognosis is very guarded. Will continue to follow. Critical care time greater than 30 minutes. MMODL / IJN: [id number] /
[2019-12-21 17:05] LABS: Glucose,Whole Blood 119 mg/dL (75-99)
--- NOTE | 2019-12-21 17:08 | PN ---
PROGRESS NOTE DATE OF SERVICE: 12/21/2019 REASON FOR FOLLOWUP: Acute COVID-19 pneumonia. INTERVAL HISTORY: The patient is currently afebrile. The patient is hemodynamically stable, not on any pressor support. FiO2 is currently down to 40%. No significant purulent secretions in the ET or any diarrhea reported. PHYSICAL EXAMINATION: Blood pressure 132/52 with a pulse of 92, temperature 98.2. She is 97% on 40% FiO2. General description is a middle-aged female intubated on the vent. RESPIRATORY SYSTEM: Unlabored breathing with decreased breath sounds at the base. No wheeze. HEART: S1, S2. Regular rate and rhythm. ABDOMEN: Soft. No tenderness. LABS: Hemoglobin is 10, white count 5.5. BUN of 28, creatinine 0.82. LDH down to 1529. DIAGNOSTIC IMPRESSION AND PLAN: Patient with acute respiratory failure which is likely multifactorial in this patient who has a component of acute COVID-19 pneumonia. Patient is currently covered with Lovenox and steroids and has completed her antibiotic therapy in this patient currently with no fever or elevated white count. Will follow on antibiotics for secondary bacterial infection. However, need to monitor the patient closely and continue supportive care. MMODL / IJN: [id number] /
[2019-12-21 18:16] LABS: Glucose,Whole Blood 143 mg/dL (75-99)
[2019-12-21 19:52] LABS: Glucose,Whole Blood 132 mg/dL (75-99)
[2019-12-21 22:21] LABS: Glucose,Whole Blood 99 mg/dL (75-99)
[2019-12-21 23:58] LABS: Glucose,Whole Blood 105 mg/dL (75-99)
[2019-12-22] MEDS: fentaNYL (PF) 1,000 MCG in SODIUM CHLORIDE 0.9% 80 ML IV SCH ×5 (00:23→20:10)
[2019-12-22 03:08] LABS: Glucose,Whole Blood 145 mg/dL (75-99)
[2019-12-22 04:02] LABS: Glucose,Whole Blood 145 mg/dL (75-99)
[2019-12-22] MEDS: PROPOFOL 1,000 MG in EMPTY BAG 1 BAG IV SCH ×9 (04:14→23:52)
[2019-12-22 04:37] LABS: Basophils % (A) 1 %; Eosinophils # (A) 0.1 k/uL (0-0.7); Eosinophils % (A) 2 %; HCT 29.9 % (34.0-46.0); HGB 9.4 gm/dL (11.4-16.0); Hypochromasia Marked; Lymphocytes # (A) 0.8 k/uL (1.0-4.8); Lymphocytes % (A) 15 %; MCH 26.3 pg (25.0-35.0); MCHC 31.5 g/dL (31.0-37.0); MCV 83.7 fL (80.0-100.0); Mean Platelet Volume 7.4; Monocytes # (A) 0.3 k/uL (0-1.0); Monocytes % (A) 5 %; Neutrophils # (A) 4.1 k/uL (1.3-7.7); Neutrophils % (A) 76 %; Platelet Count 287 k/uL (150-450); Poikilocytosis Slight; RBC 3.57 m/uL (3.80-5.40); RDW 15.9 % (11.5-15.5); WBC 5.4 k/uL (3.8-10.6)
[2019-12-22 04:54] LABS: C Reactive Protein 5.4 mg/L (<10.0); Calcium 8.7 mg/dL (8.4-10.2); Potassium 2.8 mmol/L (3.5-5.1); Total Bilirubin 0.6 mg/dL (0.2-1.3); Total Protein 5.5 g/dL (6.3-8.2)
[2019-12-22] MEDS: INSULIN REGULAR 100 UNIT in SODIUM CHLORIDE 0.9% 100 ML IV SCH (04:55)
[2019-12-22 05:55] LABS: Glucose,Whole Blood 139 mg/dL (75-99)
[2019-12-22] MEDS: POTASSIUM CHLORIDE 20 MEQ in WATER FOR INJECTION 1 100ML.BAG IVPB SCH ×3 (06:01→10:39)
[2019-12-22 06:29] LABS: ABG Base Excess 6.1 mmol/L; ABG HCO3 29 mmol/L (21-25); ABG Oxygen Saturation 97.2 % (94-97); ABG PCO2 39 mmHg (35-45); ABG PH 7.49 (7.35-7.45); ABG PO2 87 mmHg (83-108); ABG TCO2 31 mmol/L (19-24)
--- NOTE | 2019-12-22 07:51 | XR ---
EXAMINATION TYPE: XR chest 1V portable DATE OF EXAM: 12/22/2019 COMPARISON: 12/21/2019 HISTORY: SOB, Follow Up FINDINGS: Indwelling tubes and catheters are unchanged. Progressive diffuse consolidation throughout both lung solitario suggests the possibility of ARDS. Corre late clinically. Stable appearance of the cardio-mediastinal structures at this time. Pleural effusion unchanged. IMPRESSION: 1. Progressive diffuse consolidation throughout both lung solitario suggests the possibility of ARDS. C orrelate clinically.
[2019-12-22] MEDS: HYDROCORTISONE SUCCINATE 100 MG/2 ML VIAL IV SCH ×3 (08:03→23:00)
[2019-12-22] MEDS: CHLORHEXIDINE GLUCONATE 15 ML CUP MUCOUS MEM SCH ×2 (08:03→20:04)
[2019-12-22] MEDS: PANTOPRAZOLE 40 MG/10 ML VIAL IVP SCH (08:03)
[2019-12-22] MEDS: FUROSEMIDE 10 MG/ML 4 ML VIAL IV SCH ×3 (08:04→23:00)
[2019-12-22] MEDS: ENOXAPARIN 120 MG/0.8 ML SYRINGE SQ SCH ×2 (08:04→20:04)
[2019-12-22] MEDS: levETIRAcetam ORAL SOLN 500 MG/5 ML CUP PO SCH ×2 (08:05→20:04)
[2019-12-22 09:33] LABS: Glucose,Whole Blood 107 mg/dL (75-99)
[2019-12-22 10:51] LABS: Glucose,Whole Blood 144 mg/dL (75-99)
[2019-12-22 10:59] LABS: Ferritin 83.4 ng/mL (10.0-291.0)
--- NOTE | 2019-12-22 12:01 | P.PN ---
Subjective Progress Note Date: 12/22/19 Principal diagnosis: COVID 19 related pneumonia, acute hypoxemic respiratory failure On patient seen in follow-up in the intensive care unit, she remains intubated, and sedated on mechanical ventilator, current vent settings are assist-control mode with a rate of 26, tidal volume is 400, FiO2 is 40%, and PEEP of 22, pulse ox is about 94%, this morning blood gases have been reviewed, show pO2 of 87, pCO2 of 39, pH is 7.49. Patient's PEEP has been decreased to 18 cm of water. IV fluids include 0.9 normal saline at a rate of 50 ML per hour, Diprivan is a 75 mics per kilo per minute, sentinel drip is at 3 mics per kilo per minute, insulin is at 4 units per hour, normal saline at a rate of 75 ML per hour, patient is on tube feedings with vital high-protein at a rate of 12, with a goal of 12, she is currently in prone position, she has been prone to every da y and has been tolerating it very well, with improvement in oxygenation, patient has received 2 doses of Tocilizumab. Today's labs have been reviewed, white blood cell count is 5.4, hemoglobin 9.4, d-dimer is trending down, at 1.59, LDH is 1381, improving, CRP is normal at 5.4. Patient has been afebrile, hemodynamically she is been stable, culture data including urine blood and sputum remain negative, catheter tip culture is pending. Objective - Vital Signs Vital signs: Vital Signs Temp 98.5 F 12/22/19 08:00 Pulse 101 H 12/22/19 10:00 Resp 26 H 12/22/19 10:00 BP 129/71 12/21/19 13:00 Pulse Ox 88 L 12/22/19 10:00 Intake & Output 12/21/19 12/22/19 12/22/19 18:59 06:59 18:59 Intake Total 8256.897 2257.846 468.757 Output Total 1540 1200 250 Balance -53.597 195.846 218.757 Weight 130.4 kg 132.2 kg 132.2 kg Intake: IV 686 636 212 Pressure Bag 36 36 12 Sodium Chloride 0.9% 1, 600 600 200 000 ml @ 50 mls/hr IV . Q20H [facility] Rx#:[id number] cefTRIAXone 1 gm In 50 Sodium Chloride 0.9% 50 ml @ 100 mls/hr IVPB Q24HR [facility] Rx#:[id number] Intake, IV Titration 656.403 537.846 196.757 Amount Insulin Regular 100 unit 72.568 8.653 In Sodium Chloride 0.9% 100 ml @ Per Protocol IV .Q0M [facility] Rx#:[id number] Propofol 1,000 mg In 326.262 333.986 99.274 Empty Bag 1 bag @ Titrate IV .Q0M [facility] Rx#: [id number] fentaNYL (PF) 1,000 mcg 257.573 195.207 97.483 In Sodium Chloride 0.9% 80 ml @ 1 MCG/KG/HR 8.39 mls/hr IV .[id number] [facility] Rx #:[id number] Tube Feeding 144 132 60 Other 90 Output: Urine 1540 1200 250 Other: Voiding Method Indwelling Catheter Indwelling Catheter Indwelling Catheter # Voids 0 0 ABP, PAP, CO, CI - Last Documented Arterial Blood Pressure 166/68 - Exam GENERAL EXAM: Sedated, obese white female, intubated on mechanical ventilator, currently in prone position in the bed in the intensive care unit comfortable in no apparent distress. HEAD: Normocephalic/atraumatic. EYES: Normal reaction of pupils, equal size. Conjunctiva pink, sclera white. NOSE: Clear with pink turbinates. THROAT: No erythema or exudates. NECK: No masses, no JVD, no thyroid enlargement, no adenopathy. CHEST: No chest wall deformity. Symmetrical expansion. LUNGS: Equal air entry with no crackles, wheeze, rhonchi or dullness. CVS: Regular rate and rhythm, normal S1 and S2, no gallops, no murmurs, no rubs ABDOMEN: Soft, nontender. No hepatosplenomegaly, normal bowel sounds, no guard ing or rigidity. EXTREMITIES: No clubbing, no edema, no cyanosis, 2+ pulses and upper and lower extremities. MUSCULOSKELETAL: Muscle strength and tone normal. SPINE: No scoliosis or deformity SKIN: No rashes CENTRAL NERVOUS SYSTEM: Sedated, and intubated. No focal deficits, tone is normal in all 4 extremities. - Labs CBC & Chem 7: 12/22/19 04:00 04/16/20 04:00 Labs: Abnormal Lab Results - Last 24 Hours (Table) 12/21/19 12/21/19 12/21/19 Range/Units 13:13 15:16 17:03 RBC (3.80-5.40) m/uL Hgb (11.4-16.0) gm/dL Hct (34.0-46.0) % RDW (11.5-15.5) % Lymphocytes # (1.0-4.8) k/uL D-Dimer (<0.60) mg/L FEU ABG pH (7.35-7.45) ABG HCO3 (21-25) mmol/L ABG Total CO2 (19-24) mmol/L ABG O2 Saturation (94-97) % Potassium (3.5-5.1) mmol/L BUN (7-17) mg/dL Glucose (74-99) mg/dL POC Glucose (mg/dL) 141 H 149 H 119 H (75-99) mg/dL AST (14-36) U/L ALT (4-34) U/L Alkaline Phosphatase (38-126) U/L Lactate Dehydrogenase (313-618) U/L Creatine Kinase (30-135) U/L Total Protein (6.3-8.2) g/dL Albumin (3.5-5.0) g/dL 12/21/19 12/21/19 12/21/19 Range/Units 18:15 19:50 23:56 RBC (3.80-5.40) m/uL Hgb (11.4-16.0) gm/dL Hct (34.0-46.0) % RDW (11.5-15.5) % Lymphocytes # (1.0-4.8) k/uL D-Dimer (<0.60) mg/L FEU ABG pH (7.35-7.45) ABG HCO3 (21-25) mmol/L ABG Total CO2 (19-24) mmol/L ABG O2 Saturation (94-97) % Potassium (3.5-5.1) mmol/L BUN (7-17) mg/dL Glucose (74-99) mg/dL POC Glucose (mg/dL) 143 H 132 H 105 H (75-99) mg/dL AST (14-36) U/L ALT (4-34) U/L Alkaline Phosphatase (38-126) U/L Lactate Dehydrogenase (313-618) U/L Creatine Kinase (30-135) U/L Total Protein (6.3-8.2) g/dL Albumin (3.5-5.0) g/dL 12/22/19 12/22/19 12/22/19 Range/Units 03:06 03:59 04:00 RBC 3.57 L (3.80-5.40) m/uL Hgb 9.4 L (11.4-16.0) gm/dL Hct 29.9 L (34.0-46.0) % RDW 15.9 H (11.5-15.5) % Lymphocytes # 0.8 L (1.0-4.8) k/uL D-Dimer (<0.60) mg/L FEU ABG pH (7.35-7.45) ABG HCO3 (21-25) mmol/L ABG Total CO2 (19-24) mmol/L ABG O2 Saturation (94-97) % Potassium (3.5-5.1) mmol/L BUN (7-17) mg/dL Glucose (74-99) mg/dL POC Glucose (mg/dL) 145 H 145 H (75-99) mg/dL AST (14-36) U/L ALT (4-34) U/L Alkaline Phosphatase (38-126) U/L Lactate Dehydrogenase (313-618) U/L Creatine Kinase (30-135) U/L Total Protein (6.3-8.2) g/dL Albumin (3.5-5.0) g/dL 12/22/19 12/22/19 12/22/19 Range/Units 04:00 04:00 05:53 RBC (3.80-5.40) m/uL Hgb (11.4-16.0) gm/dL Hct (34.0-46.0) % RDW (11.5-15.5) % Lymphocytes # (1.0-4.8) k/uL D-Dimer 1.59 H (<0.60) mg/L FEU ABG pH (7.35-7.45) ABG HCO3 (21-25) mmol/L ABG Total CO2 (19-24) mmol/L ABG O2 Saturation (94-97) % Potassium 2.8 L (3.5-5.1) mmol/L BUN 25 H (7-17) mg/dL Glucose 140 H (74-99) mg/dL POC Glucose (mg/dL) 139 H (75-99) mg/dL AST 72 H (14-36) U/L ALT 87 H (4-34) U/L Alkaline Phosphatase 204 H (38-126) U/L Lactate Dehydrogenase 1381 H (313-618) U/L Creatine Kinase 177 H (30-135) U/L Total Protein 5.5 L (6.3-8.2) g/dL Albumin 3.0 L (3.5-5.0) g/dL 12/22/19 12/22/19 12/22/19 Range/Units 06:24 09:29 10:50 RBC (3.80-5.40) m/uL Hgb (11.4-16.0) gm/dL Hct (34.0-46.0) % RDW (11.5-15.5) % Lymphocytes # (1.0-4.8) k/uL D-Dimer (<0.60) mg/L FEU ABG pH 7.49 H (7.35-7.45) ABG HCO3 29 H (21-25) mmol/L ABG Total CO2 31 H (19-24) mmol/L ABG O2 Saturation 97.2 H (94-97) % Potassium (3.5-5.1) mmol/L BUN (7-17) mg/dL Glucose (74-99) mg/dL POC Glucose (mg/dL) 107 H 144 H (75-99) mg/dL AST (14-36) U/L ALT (4-34) U/L Alkaline Phosphatase (38-126) U/L Lactate Dehydrogenase (313-618) U/L Creatine Kinase (30-135) U/L Total Protein (6.3-8.2) g/dL Albumin (3.5-5.0) g/dL Microbiology - Last 24 Hours (Table) 12/21/19 17:05 Catheter Tip Culture - Preliminary Catheter Tip 12/19/19 00:00 Gram Stain - Final Sputum Sputum Culture - Final Assessment and Plan Plan: Assessment: #1. Acute hypoxic and hypercapnic respiratory failure secondary to COVID 19 related pneumonia, patient was intubated on 12/13/2019, and today on 12/22/2019 patient remains intubated, she has had to be prone, and requiring high PEEP to improve oxygenation. Microbiology data has been negative thus far, and antibiotics have been discontinued #2. Severe ARDS #3. Acute septic shock, likely secondary to pneumonia, improved #4. History of myasthenia gravis, status post IVIG treatments #5. Acute elevation of inflammatory markers including lactate dehydrogenase, C- reactive protein related to Covid 19 infection #6. Elevated d-dimer related to acute Covid 19 infection, and patient is covered with therapeutic doses of Lovenox #7. Diabetes mellitus type 2, poorly controlled #8. Morbid obesity #9. GERD/reflux #10. Hypertension #11. Former smoker #12. Anxiety #13. Chronic kidney disease stage III at baseline #14. Chronic CHF with diastolic dysfunction Plan: Today's blood gases have been reviewed, chest x-ray has been reviewed, patient was seen and evaluated along with Dr. Castro, we'll drop the PEEP down to 18 cm of water, continue with all the other previous vent settings. FiO2 is currently at 40%, oxygenation seems to have improved, we will attempt to continue weaning the PEEP. Continue with tube feedings. Continue pronating. Hemodynamically p atient remains stable, inflammatory markers seem to be improving, continue with therapeutic doses of Lovenox, patient has received 2 doses of October, she has been afebrile. Continue with IV Lasix, we'll consider increasing IV Lasix patient is an positive fluid balance, and she is up 7 kg since admission. Chest x-ray and lab work in the morning. Continue GI and DVT prophylaxis. I performed a history & physical examination of the patient and discussed their management with my nurse practitioner, Deja Munoz. I reviewed the nurse practitioner's note and agree with the documented findings and plan of care. Lung sounds are positive for management sounds. The findings and the impression was discussed with the patient. I attest to the documentation by the nurse practitioner. Time with Patient: Greater than 30
[2019-12-22 13:21] LABS: Glucose,Whole Blood 163 mg/dL (75-99)
--- NOTE | 2019-12-22 14:37 | P.PN ---
Subjective Progress Note Date: 12/22/19 Patient still intubated. Patient is heavily sedated. Cannot assess underlying myasthenic symptoms. According to the nursing report, patient's pulmonary condition has been stable since yesterday. Patient's PEEP at 18. FiO2 has been decreased to 40% however. Chest x-ray continues to show ARDS picture. At present patient is on propofol 75 g and fentanyl increased to 3.0 for sedation. Patient is currently in the supine position. Objective - Vital Signs Vital signs: Vital Signs Temp 98.5 F 12/22/19 08:00 Pulse 64 12/22/19 13:00 Resp 26 H 12/22/19 13:00 BP 129/71 12/21/19 13:00 Pulse Ox 96 12/22/19 13:00 Intake & Output 12/21/19 12/22/19 12/22/19 18:59 06:59 18:59 Intake Total 0760.412 9727.846 873.405 Output Total 1540 1200 1600 Balance -53.597 195.846 -726.595 Weight 130.4 kg 132.2 kg 132.2 kg Intake: IV 686 636 424 Pressure Bag 36 36 24 Sodium Chloride 0.9% 1, 600 600 400 000 ml @ 20 mls/hr IV . Q24H [facility] Rx#:[id number] cefTRIAXone 1 gm In 50 Sodium Chloride 0.9% 50 ml @ 100 mls/hr IVPB Q24HR [facility] Rx#:[id number] Intake, IV Titration 656.403 537.846 329.405 Amount Insulin Regular 100 unit 72.568 8.653 32.152 In Sodium Chloride 0.9% 100 ml @ Per Protocol IV .Q0M [facility] Rx#:[id number] Propofol 1,000 mg In 326.262 333.986 199.770 Empty Bag 1 bag @ Titrate IV .Q0M [facility] Rx#: [id number] fentaNYL (PF) 1,000 mcg 257.573 195.207 97.483 In Sodium Chloride 0.9% 80 ml @ 1 MCG/KG/HR 8.39 mls/hr IV .[id number] [facility] Rx #:[id number] Tube Feeding 144 132 120 Other 90 Output: Urine 1540 1200 1600 Other: Voiding Method Indwelling Catheter Indwelling Catheter Indwelling Catheter # Voids 0 0 ABP, PAP, CO, CI - Last Documented Arterial Blood Pressure 131/65 - Exam Patient on mechanical ventilation, sedated. - Labs CBC & Chem 7: 12/22/19 04:00 12/22/19 04:00 Labs: Abnormal Lab Results - Last 24 Hours (Table) 12/21/19 12/21/19 12/21/19 Range/Units 15:16 17:03 18:15 RBC (3.80-5.40) m/uL Hgb (11.4-16.0) gm/dL Hct (34.0-46.0) % RDW (11.5-15.5) % Lymphocytes # (1.0-4.8) k/uL D-Dimer (<0.60) mg/L FEU ABG pH (7.35-7.45) ABG HCO3 (21-25) mmol/L ABG Total CO2 (19-24) mmol/L ABG O2 Saturation (94-97) % Potassium (3.5-5.1) mmol/L BUN (7-17) mg/dL Glucose (74-99) mg/dL POC Glucose (mg/dL) 149 H 119 H 143 H (75-99) mg/dL AST (14-36) U/L ALT (4-34) U/L Alkaline Phosphatase (38-126) U/L Lactate Dehydrogenase (313-618) U/L Creatine Kinase (30-135) U/L Total Protein (6.3-8.2) g/dL Albumin (3.5-5.0) g/dL 12/21/19 12/21/19 12/22/19 Range/Units 19:50 23:56 03:06 RBC (3.80-5.40) m/uL Hgb (11.4-16.0) gm/dL Hct (34.0-46.0) % RDW (11.5-15.5) % Lymphocytes # (1.0-4.8) k/uL D-Dimer (<0.60) mg/L FEU ABG pH (7.35-7.45) ABG HCO3 (21-25) mmol/L ABG Total CO2 (19-24) mmol/L ABG O2 Saturation (94-97) % Potassium (3.5-5.1) mmol/L BUN (7-17) mg/dL Glucose (74-99) mg/dL POC Glucose (mg/dL) 132 H 105 H 145 H (75-99) mg/dL AST (14-36) U/L ALT (4-34) U/L Alkaline Phosphatase (38-126) U/L Lactate Dehydrogenase (313-618) U/L Creatine Kinase (30-135) U/L Total Protein (6.3-8.2) g/dL Albumin (3.5-5.0) g/dL 12/22/19 12/22/19 12/22/19 Range/Units 03:59 04:00 04:00 RBC 3.57 L (3.80-5.40) m/uL Hgb 9.4 L (11.4-16.0) gm/dL Hct 29.9 L (34.0-46.0) % RDW 15.9 H (11.5-15.5) % Lymphocytes # 0.8 L (1.0-4.8) k/uL D-Dimer 1.59 H (<0.60) mg/L FEU ABG pH (7.35-7.45) ABG HCO3 (21-25) mmol/L ABG Total CO2 (19-24) mmol/L ABG O2 Saturation (94-97) % Potassium (3.5-5.1) mmol/L BUN (7-17) mg/dL Glucose (74-99) mg/dL POC Glucose (mg/dL) 145 H (75-99) mg/dL AST (14-36) U/L ALT (4-34) U/L Alkaline Phosphatase (38-126) U/L Lactate Dehydrogenase (313-618) U/L Creatine Kinase (30-135) U/L Total Protein (6.3-8.2) g/dL Albumin (3.5-5.0) g/dL 12/22/19 12/22/19 12/22/19 Range/Units 04:00 05:53 06:24 RBC (3.80-5.40) m/uL Hgb (11.4-16.0) gm/dL Hct (34.0-46.0) % RDW (11.5-15.5) % Lymphocytes # (1.0-4.8) k/uL D-Dimer (<0.60) mg/L FEU ABG pH 7.49 H (7.35-7.45) ABG HCO3 29 H (21-25) mmol/L ABG Total CO2 31 H (19-24) mmol/L ABG O2 Saturation 97.2 H (94-97) % Potassium 2.8 L (3.5-5.1) mmol/L BUN 25 H (7-17) mg/dL Glucose 140 H (74-99) mg/dL POC Glucose (mg/dL) 139 H (75-99) mg/dL AST 72 H (14-36) U/L ALT 87 H (4-34) U/L Alkaline Phosphatase 204 H (38-126) U/L Lactate Dehydrogenase 1381 H (313-618) U/L Creatine Kinase 177 H (30-135) U/L Total Protein 5.5 L (6.3-8.2) g/dL Albumin 3.0 L (3.5-5.0) g/dL 12/22/19 12/22/19 12/22/19 Range/Units 09:29 10:50 13:19 RBC (3.80-5.40) m/uL Hgb (11.4-16.0) gm/dL Hct (34.0-46.0) % RDW (11.5-15.5) % Lymphocytes # (1.0-4.8) k/uL D-Dimer (<0.60) mg/L FEU ABG pH (7.35-7.45) ABG HCO3 (21-25) mmol/L ABG Total CO2 (19-24) mmol/L ABG O2 Saturation (94-97) % Potassium (3.5-5.1) mmol/L BUN (7-17) mg/dL Glucose (74-99) mg/dL POC Glucose (mg/dL) 107 H 144 H 163 H (75-99) mg/dL AST (14-36) U/L ALT (4-34) U/L Alkaline Phosphatase (38-126) U/L Lactate Dehydrogenase (313-618) U/L Creatine Kinase (30-135) U/L Total Protein (6.3-8.2) g/dL Albumin (3.5-5.0) g/dL Microbiology - Last 24 Hours (Table) 12/21/19 17:05 Catheter Tip Culture - Preliminary Catheter Tip Assessment and Plan Assessment: * Myasthenia gravis. Patient is status post treatment with IVIG about a month ago for myasthenia gravis exacerbation. Current myasthenia gravis status uncertain, as patient is sedated. * Acute multifocal pneumonia, due to Covid-19. * Ventilator-dependent respiratory failure with ARDS. * Diabetes poorly controlled * Obesity Plan: * Patient's myasthenia gravis cannot be assessed at this time. Examination limited due to patient being sedated. * Treatment of COVID as per ID and critical care. * If she develops any signs of myasthenia gravis exacerbation, after resolution of pneumonia, we will consider treatment with IVIG. * Your medical/critical care management.
--- NOTE | 2019-12-22 15:05 | PN ---
PROGRESS NOTE DATE OF SERVICE: 12/21/2019 A 59-year-old white female, acute hypoxemic respiratory distress secondary to COVID pneumonia. He is very critically in ICU, her oxygen level continues to drop with any kind of movement. She is still on the ventilator, FiO2 is down to 40% with PEEP of 22. PHYSICAL EXAM: Vital signs are reviewed. Temp 98.2, respiratory 20 to 26, heart rate 70, blood pressure 118/67, saturations are 97, cardiovascular S1, S2. LUNGS: Sound fairly clear, but distant. ABDOMEN: Obese. EXTREMITIES: Positive edema, but negative Homans. No redness. Chest x-ray shows bilateral diffuse infiltrates, slightly worsened compared to yesterday. ASSESSMENT: 1. COVID Pneumonia. 2. Type 2 diabetes mellitus. 3. Obesity. 4. Acute hypoxemic hypercapnic respiratory failure secondary to COVID-19 pneumonia, severe acute respiratory distress. 5. ARDS. 6. History of myasthenia gravis, multiple sclerosis. 7. Acute sepsis secondary to pneumonia. Continue current treatments, possible treatment. COVID antibodies, possibly in the future if they arrive to the hospital, wean mechanical vent as tolerated. MMODL / IJN: [id number] /
[2019-12-22 15:21] LABS: Glucose,Whole Blood 195 mg/dL (75-99)
[2019-12-22] MEDS: SODIUM CHLORIDE 0.9% 1,000 ML IV SCH (16:09)
[2019-12-22 16:21] LABS: Glucose,Whole Blood 188 mg/dL (75-99)
[2019-12-22] MEDS: POTASSIUM BICARBONATE/CIT AC 20 MEQ TABLET.EFF NG-TUBE SCH ×4 (18:23→23:51)
[2019-12-22 18:31] LABS: Glucose,Whole Blood 143 mg/dL (75-99)
--- NOTE | 2019-12-22 18:43 | PN ---
PROGRESS NOTE DATE OF SERVICE: 12/22/2019 REASON FOR FOLLOWUP: Acute COVID-19 pneumonia. INTERVAL HISTORY: The patient is currently afebrile. The patient is hemodynamically stable without any pressor support. FiO2 is down to 40%. No significant purulent secretions from the ET or any diarrhea reported by the nursing staff. PHYSICAL EXAMINATION: Blood pressure 141/65 with a pulse of 69, temperature 98. She is 96% on 40% FiO2. General description is a middle-aged female intubated on the vent. RESPIRATORY SYSTEM: Unlabored breathing. Clear to auscultation anteriorly. HEART: S1, S2. Regular rate and rhythm. ABDOMEN: Soft. No distention. LABS: Hemoglobin 9.4, white count 5.4. BUN of 25, creatinine 0.90. DIAGNOSTIC IMPRESSION AND PLAN: Patient with acute COVID-19 pneumonia with acute respiratory failure. Patient is currently on Lovenox and prednisone and respiratory support, to continue. She has completed her Plaquenil therapy and received Actemra. We will monitor clinical course closely. Continue supportive care. MIKE / LINDA: [id number] /
[2019-12-22 19:54] LABS: Glucose,Whole Blood 158 mg/dL (75-99)
[2019-12-22 22:08] LABS: Glucose,Whole Blood 138 mg/dL (75-99)
--- NOTE | 2019-12-22 23:32 | PN ---
PROGRESS NOTE DATE OF SERVICE: 12/22/2019 This patient is a 59-year-old white female who had some hypokalemia which was replaced today. She remains in prone position alternating with supine position. She is on FiO2 of 40%. with frequent movements. She was admitted with acute COVID-19 pneumonia. Awaiting plasma COVID antibodies in the near future. She has no purulent material coming from the NG tube. Blood pressure is 141/65, pulse 69, temperature 98. FiO2 40%, 94% to 96%. Unlabored breathing. Lungs are essentially clear. HEART: S1, S2. Abdomen is soft. She is lying prone. ICU notes were reviewed. Infectious disease reviewed. Continue with Lovenox a day to prevent microembolism. Prednisone. Respiratory support. Complete her Plaquenil therapy. Received Actemra. Await COVID antibodies, plasma COVID antibodies. Please see further orders. ICU time 20 minutes. MMODL / IJN: [id number] /
[2019-12-23 00:07] LABS: Glucose,Whole Blood 121 mg/dL (75-99)
[2019-12-23] MEDS: fentaNYL (PF) 1,000 MCG in SODIUM CHLORIDE 0.9% 80 ML IV SCH ×7 (00:42→20:52)
[2019-12-23 02:05] LABS: Glucose,Whole Blood 143 mg/dL (75-99)
[2019-12-23] MEDS: PROPOFOL 1,000 MG in EMPTY BAG 1 BAG IV SCH ×10 (03:12→23:50)
[2019-12-23 04:16] LABS: Glucose,Whole Blood 179 mg/dL (75-99)
[2019-12-23 04:48] LABS: Anisocytosis Slight; Basophils % (A) 1 %; Eosinophils # (A) 0.2 k/uL (0-0.7); Eosinophils % (A) 3 %; HCT 29.2 % (34.0-46.0); HGB 9.4 gm/dL (11.4-16.0); Hypochromasia Marked; Lymphocytes # (A) 0.8 k/uL (1.0-4.8); Lymphocytes % (A) 15 %; MCH 26.8 pg (25.0-35.0); MCHC 32.3 g/dL (31.0-37.0); MCV 82.9 fL (80.0-100.0); Mean Platelet Volume 8.4; Monocytes # (A) 0.4 k/uL (0-1.0); Monocytes % (A) 7 %; Neutrophils % (A) 73 %; Platelet Count 330 k/uL (150-450); Poikilocytosis Slight; RBC 3.52 m/uL (3.80-5.40); RDW 16.2 % (11.5-15.5); WBC 5.5 k/uL (3.8-10.6)
[2019-12-23 05:04] LABS: ALT 114 U/L (4-34); AST 89 U/L (14-36); African American GFR (CKD) >90 (>60 ml/min/1.73 sqM); Albumin 3.1 g/dL (3.5-5.0); Alkaline Phosphatase 217 U/L (38-126); Anion Gap 6 mmol/L; Blood Urea Nitrogen 25 mg/dL (7-17); C Reactive Protein <5.0 mg/L (<10.0); Calcium 8.5 mg/dL (8.4-10.2); Carbon Dioxide 31 mmol/L (22-30); Chloride 99 mmol/L (98-107); Creatine Kinase 147 U/L (30-135); Glucose 167 mg/dL (74-99); LDH 1360 U/L (313-618); Non-African American GFR(CKD) 83 (>60 ml/min/1.73 sqM); Potassium 3.4 mmol/L (3.5-5.1); Sodium 136 mmol/L (137-145); Total Bilirubin 0.7 mg/dL (0.2-1.3); Total Protein 5.6 g/dL (6.3-8.2)
[2019-12-23 05:39] LABS: ABG HCO3 30 mmol/L (21-25); ABG Oxygen Saturation 98.7 % (94-97); ABG PCO2 41 mmHg (35-45); ABG PH 7.47 (7.35-7.45); ABG PO2 119 mmHg (83-108); ABG TCO2 31 mmol/L (19-24); Allen Test Performed? Yes
[2019-12-23] MEDS: POTASSIUM BICARBONATE/CIT AC 20 MEQ TABLET.EFF NG-TUBE SCH ×2 (05:40→06:47)
[2019-12-23 05:46] LABS: Glucose,Whole Blood 164 mg/dL (75-99)
[2019-12-23] MEDS: INSULIN REGULAR 100 UNIT in SODIUM CHLORIDE 0.9% 100 ML IV SCH ×2 (05:48→16:26)
[2019-12-23] MEDS: HYDROCORTISONE SUCCINATE 100 MG/2 ML VIAL IV SCH ×3 (08:00→23:49)
--- NOTE | 2019-12-23 08:36 | XR ---
EXAMINATION TYPE: XR chest 1V portable DATE OF EXAM: 12/23/2019 COMPARISON: Prior chest x-ray 12/22/2019 HISTORY: Shortness of breath, intubated TECHNIQUE: frontal view of the chest is obtained on 2 images. FINDINGS: Endotracheal tube, NG tube are again overlying appropriate positions, the left jugular janeth tral venous catheter is stable. There are overlying cardiac leads. No evident pneumothorax or pleural effusion. Bilateral airspace disease persists. IMPRESSION: Correlate for pneumonia, ARDS, edema
[2019-12-23] MEDS: ENOXAPARIN 120 MG/0.8 ML SYRINGE SQ SCH ×2 (09:05→20:47)
[2019-12-23] MEDS: PANTOPRAZOLE 40 MG/10 ML VIAL IVP SCH (09:06)
[2019-12-23] MEDS: levETIRAcetam ORAL SOLN 500 MG/5 ML CUP PO SCH ×2 (09:06→20:47)
[2019-12-23] MEDS: CHLORHEXIDINE GLUCONATE 15 ML CUP MUCOUS MEM SCH ×2 (09:06→20:46)
[2019-12-23] MEDS: FUROSEMIDE 10 MG/ML 4 ML VIAL IV SCH ×3 (09:06→23:49)
[2019-12-23 09:36] LABS: Glucose,Whole Blood 135 mg/dL (75-99)
[2019-12-23] MEDS: POTASSIUM CHLORIDE 20 MEQ in WATER FOR INJECTION 1 100ML.BAG IVPB SCH ×2 (11:26→11:38)
[2019-12-23 11:33] LABS: Ferritin 81.3 ng/mL (10.0-291.0)
[2019-12-23 12:00] LABS: Glucose,Whole Blood 152 mg/dL (75-99)
--- NOTE | 2019-12-23 12:21 | P.PN ---
Subjective Progress Note Date: 12/23/19 Principal diagnosis: Acute hypoxic respiratory failure secondary to CoVID 19 pneumonitis The patient is seen today 12/23/2019 in follow-up in the intensive care unit. She remains intubated and on mechanical ventilator at assist control of 26, tidal volume 400, FiO2 of 40% and a PEEP of 18. Morning blood gases reveal a P O2 of 119, pCO2 41 and a pH of 7.47. She is sedated on propofol at 75 mcg/kg/m. Fentanyl at 3 mcg/kg/h. 0.9 normal saline at 20 ML's per hour. Insulin drip at 3 units per hour. She has been nourished with vital 8T at 12 ML's per hour which is goal. Chest x-ray was reviewed and is approximately the same as yesterday. No better nor worse. Still with bilateral airspace disease. Blood cultures revealed no growth. Urine and sputum cultures revealed no growth. Catheter tip culture was positive for coagulase-negative staph. White count 5.5. Hemoglobin 9.4. Lymphocytes 0.8. Sodium 136. Potassium 3.4. Creatinine 0.79. AST 89. ALT 114. LDH 1360. Creatinine kinase 147. C-reactive protein less than 5. Albumin 3.1. She remains on Lovenox 120 mg subcu every 12 hours. Continued on Lasix 40 mg IV every 8 hours. Currently in a negative balance. Weight is down 3 kg. Objective - Vital Signs Vital signs: Vital Signs Temp 99.3 F 12/23/19 08:00 Pulse 74 12/23/19 11:00 Resp 26 H 12/23/19 11:00 BP 129/71 12/21/19 13:00 Pulse Ox 94 L 12/23/19 11:00 Intake & Output 12/22/19 12/23/19 12/23/19 18:59 06:59 18:59 Intake Total 6492.800 4468.854 580.763 Output Total 1945 1540 530 Balance -601.295 -451.146 50.763 Weight 132.2 kg 129.6 kg 129.6 kg Intake: IV 516 276 115 Pressure Bag 36 36 15 Sodium Chloride 0.9% 1, 480 240 100 000 ml @ 20 mls/hr IV . Q24H [facility] Rx#:[id number] Intake, IV Titration 557.705 578.854 405.763 Amount Insulin Regular 100 unit 60.452 19.0 In Sodium Chloride 0.9% 100 ml @ Per Protocol IV .Q0M [facility] Rx#:[id number] Potassium Chloride 20 meq 100 In Water For Injection 1 100ml.bag @ 50 mls/hr IVPB Q2H [facility] Rx#: [id number] Propofol 1,000 mg In 299.770 273.017 181.172 Empty Bag 1 bag @ Titrate IV .Q0M [facility] Rx#: [id number] fentaNYL (PF) 1,000 mcg 197.483 286.837 124.591 In Sodium Chloride 0.9% 80 ml @ 1 MCG/KG/HR 8.39 mls/hr IV .[id number] [facility] Rx #:[id number] Tube Feeding 180 144 60 Other 90 90 Output: Urine 1945 1540 530 Other: Voiding Method Indwelling Catheter Indwelling Catheter Indwelling Catheter # Voids 0 ABP, PAP, CO, CI - Last Documented Arterial Blood Pressure 126/60 - Exam Physical Exam: Revealed a morbidly obese 59-year-old female on mechanical ventilation, sedated on propofol and fentanyl. Alternating supine and prone positioning. Head: Cushingoid, no neck masses, endotracheal tube and orogastric tube is intact. HEENT: Neck is supple. PERRLA, EOMI, no icterus, no JVD. Central line seems to be intact. Chest: Diminished breath sounds and crackles at the bases. Cardiac Exam: Normal S1 and S2, no S3 gallop, no murmur. Abdomen: Obese, Soft, nontender, no megaly, no rebound, no guarding, normal bowel sounds. Extremities: No clubbing, no edema, no cyanosis. Neurological Exam: Cannot be assessed, patient is sedated and on mechanical ventilation on propofol and fentanyl. Psychiatric: Could not be assessed. Skin: No rashes. Musculoskeletal: No deformities. - Labs CBC & Chem 7: 12/23/19 04:10 12/23/19 04:10 Labs: Abnormal Lab Results - Last 24 Hours (Table) 12/22/19 12/22/19 12/22/19 Range/Units 13:19 15:19 16:19 RBC (3.80-5.40) m/uL Hgb (11.4-16.0) gm/dL Hct (34.0-46.0) % RDW (11.5-15.5) % Lymphocytes # (1.0-4.8) k/uL ABG pH (7.35-7.45) ABG pO2 (83-108) mmHg ABG HCO3 (21-25) mmol/L ABG Total CO2 (19-24) mmol/L ABG O2 Saturation (94-97) % Sodium (137-145) mmol/L Potassium (3.5-5.1) mmol/L Carbon Dioxide (22-30) mmol/L BUN (7-17) mg/dL Glucose (74-99) mg/dL POC Glucose (mg/dL) 163 H 195 H 188 H (75-99) mg/dL AST (14-36) U/L ALT (4-34) U/L Alkaline Phosphatase (38-126) U/L Lactate Dehydrogenase (313-618) U/L Creatine Kinase (30-135) U/L Total Protein (6.3-8.2) g/dL Albumin (3.5-5.0) g/dL 12/22/19 12/22/19 12/22/19 Range/Units 16:20 18:27 19:51 RBC (3.80-5.40) m/uL Hgb (11.4-16.0) gm/dL Hct (34.0-46.0) % RDW (11.5-15.5) % Lymphocytes # (1.0-4.8) k/uL ABG pH (7.35-7.45) ABG pO2 (83-108) mmHg ABG HCO3 (21-25) mmol/L ABG Total CO2 (19-24) mmol/L ABG O2 Saturation (94-97) % Sodium (137-145) mmol/L Potassium 3.2 L (3.5-5.1) mmol/L Carbon Dioxide (22-30) mmol/L BUN (7-17) mg/dL Glucose (74-99) mg/dL POC Glucose (mg/dL) 143 H 158 H (75-99) mg/dL AST (14-36) U/L ALT (4-34) U/L Alkaline Phosphatase (38-126) U/L Lactate Dehydrogenase (313-618) U/L Creatine Kinase (30-135) U/L Total Protein (6.3-8.2) g/dL Albumin (3.5-5.0) g/dL 12/22/19 12/23/19 12/23/19 Range/Units 22:07 00:05 02:04 RBC (3.80-5.40) m/uL Hgb (11.4-16.0) gm/dL Hct (34.0-46.0) % RDW (11.5-15.5) % Lymphocytes # (1.0-4.8) k/uL ABG pH (7.35-7.45) ABG pO2 (83-108) mmHg ABG HCO3 (21-25) mmol/L ABG Total CO2 (19-24) mmol/L ABG O2 Saturation (94-97) % Sodium (137-145) mmol/L Potassium (3.5-5.1) mmol/L Carbon Dioxide (22-30) mmol/L BUN (7-17) mg/dL Glucose (74-99) mg/dL POC Glucose (mg/dL) 138 H 121 H 143 H (75-99) mg/dL AST (14-36) U/L ALT (4-34) U/L Alkaline Phosphatase (38-126) U/L Lactate Dehydrogenase (313-618) U/L Creatine Kinase (30-135) U/L Total Protein (6.3-8.2) g/dL Albumin (3.5-5.0) g/dL 12/23/19 12/23/19 12/23/19 Range/Units 04:10 04:10 04:14 RBC 3.52 L (3.80-5.40) m/uL Hgb 9.4 L (11.4-16.0) gm/dL Hct 29.2 L (34.0-46.0) % RDW 16.2 H (11.5-15.5) % Lymphocytes # 0.8 L (1.0-4.8) k/uL ABG pH (7.35-7.45) ABG pO2 (83-108) mmHg ABG HCO3 (21-25) mmol/L ABG Total CO2 (19-24) mmol/L ABG O2 Saturation (94-97) % Sodium 136 L (137-145) mmol/L Potassium 3.4 L (3.5-5.1) mmol/L Carbon Dioxide 31 H (22-30) mmol/L BUN 25 H (7-17) mg/dL Glucose 167 H (74-99) mg/dL POC Glucose (mg/dL) 179 H (75-99) mg/dL AST 89 H (14-36) U/L ALT 114 H (4-34) U/L Alkaline Phosphatase 217 H (38-126) U/L Lactate Dehydrogenase 1360 H (313-618) U/L Creatine Kinase 147 H (30-135) U/L Total Protein 5.6 L (6.3-8.2) g/dL Albumin 3.1 L (3.5-5.0) g/dL 12/23/19 12/23/19 12/23/19 Range/Units 05:33 05:45 09:35 RBC (3.80-5.40) m/uL Hgb (11.4-16.0) gm/dL Hct (34.0-46.0) % RDW (11.5-15.5) % Lymphocytes # (1.0-4.8) k/uL ABG pH 7.47 H (7.35-7.45) ABG pO2 119 H (83-108) mmHg ABG HCO3 30 H (21-25) mmol/L ABG Total CO2 31 H (19-24) mmol/L ABG O2 Saturation 98.7 H (94-97) % Sodium (137-145) mmol/L Potassium (3.5-5.1) mmol/L Carbon Dioxide (22-30) mmol/L BUN (7-17) mg/dL Glucose (74-99) mg/dL POC Glucose (mg/dL) 164 H 135 H (75-99) mg/dL AST (14-36) U/L ALT (4-34) U/L Alkaline Phosphatase (38-126) U/L Lactate Dehydrogenase (313-618) U/L Creatine Kinase (30-135) U/L Total Protein (6.3-8.2) g/dL Albumin (3.5-5.0) g/dL 12/23/19 Range/Units 11:57 RBC (3.80-5.40) m/uL Hgb (11.4-16.0) gm/dL Hct (34.0-46.0) % RDW (11.5-15.5) % Lymphocytes # (1.0-4.8) k/uL ABG pH (7.35-7.45) ABG pO2 (83-108) mmHg ABG HCO3 (21-25) mmol/L ABG Total CO2 (19-24) mmol/L ABG O2 Saturation (94-97) % Sodium (137-145) mmol/L Potassium (3.5-5.1) mmol/L Carbon Dioxide (22-30) mmol/L BUN (7-17) mg/dL Glucose (74-99) mg/dL POC Glucose (mg/dL) 152 H (75-99) mg/dL AST (14-36) U/L ALT (4-34) U/L Alkaline Phosphatase (38-126) U/L Lactate Dehydrogenase (313-618) U/L Creatine Kinase (30-135) U/L Total Protein (6.3-8.2) g/dL Albumin (3.5-5.0) g/dL Microbiology - Last 24 Hours (Table) 12/21/19 17:05 Catheter Tip Culture - Preliminary Catheter Tip Coagulase Negative Staph Assessment and Plan Assessment: 1 Acute hypoxic and hypercapnic respiratory failure secondary to COVID 19 related pneumonia, patient was intubated on 12/13/2019. She's been placed in the prone position approximate 16 hours per day. FiO2 down to 40%. Plan to decrease the PEEP to 15 today. Microbiology data has been negative thus far, and antibiotics have been discontinued 2 Severe ARDS 3 Acute septic shock, likely secondary to pneumonia, improved 4 History of myasthenia gravis, status post IVIG treatments 5 Acute elevation of inflammatory markers including lactate dehydrogenase, C- reactive protein related to Covid 19 infection 6 Elevated d-dimer related to acute Covid 19 infection, and patient is covered with therapeutic doses of Lovenox 7 Diabetes mellitus type 2, poorly controlled 8 Morbid obesity 9 GERD/reflux 10 Hypertension 11 Former smoker 12 History of anxiety 13 Chronic kidney disease stage III at baseline 14 Chronic CHF with diastolic dysfunction Plan The patient was seen and evaluated by Dr. Hawthorne Chest x-ray, ABGs and labs reviewed Decrease the PEEP to 15 Titrate down the FiO2 as tolerated Continue diuretics Overall prognosis remains quite guarded Continue with 16 hours prone, 8 hour supine as tolerated We'll continue to follow and make further recommendations based on her clinical status. Critical care time 37 minutes I, the cosigning physician, performed a history & physical examination of the patient. Lungs sounds few scattered rhonchi, crackles in the posterior bases. Maintaining good O2 saturations in the 90s on 40% FiO2 and a PEEP of 15 on mechanical ventilator. I discussed the assessment and plan of care with my nurse practitioner, Serena Ronquillo. I attest to the above note as dictated by her.
[2019-12-23 13:47] LABS: Glucose,Whole Blood 194 mg/dL (75-99)
[2019-12-23 16:22] LABS: Glucose,Whole Blood 174 mg/dL (75-99)
--- NOTE | 2019-12-23 16:59 | P.PN ---
Subjective Progress Note Date: 12/23/19 Patient still intubated. Patient is heavily sedated. Cannot assess underlying myasthenic symptoms. According to the nursing report, patient's pulmonary condition has been stable since yesterday. Patient's PEEP at 15. FiO2 at 40% . Chest x-ray continues to show ARDS picture. At present patient is on propofol 60 g and fentanyl increased to 2.5 for sedation. Patient is currently in the supine position. Objective - Vital Signs Vital signs: Vital Signs Temp 98.8 F 12/23/19 16:00 Pulse 63 12/23/19 16:00 Resp 26 H 12/23/19 16:00 BP 129/71 12/21/19 13:00 Pulse Ox 95 12/23/19 16:00 Intake & Output 12/22/19 12/23/19 12/23/19 18:59 06:59 18:59 Intake Total 5449.806 4568.854 1179.117 Output Total 1945 1540 905 Balance -601.295 -451.146 274.117 Weight 132.2 kg 129.6 kg 129.6 kg Intake: IV 516 276 230 Pressure Bag 36 36 30 Sodium Chloride 0.9% 1, 480 240 200 000 ml @ 20 mls/hr IV . Q24H [facility] Rx#:[id number] Intake, IV Titration 557.705 578.854 829.117 Amount Insulin Regular 100 unit 60.452 19.0 36.80 In Sodium Chloride 0.9% 100 ml @ Per Protocol IV .Q0M [facility] Rx#:[id number] Potassium Chloride 20 meq 100 In Water For Injection 1 100ml.bag @ 50 mls/hr IVPB Q2H [facility] Rx#: [id number] Potassium Chloride 20 meq 100 In Water For Injection 1 100ml.bag @ 50 mls/hr IVPB Q2H [facility] Rx#: [id number] Propofol 1,000 mg In 299.770 273.017 282.727 Empty Bag 1 bag @ Titrate IV .Q0M [facility] Rx#: [id number] fentaNYL (PF) 1,000 mcg 197.483 286.837 309.590 In Sodium Chloride 0.9% 80 ml @ 1 MCG/KG/HR 8.39 mls/hr IV .[id number] [facility] Rx #:[id number] Tube Feeding 180 144 120 Other 90 90 Output: Urine 3145 1540 905 Other: Voiding Method Indwelling Catheter Indwelling Catheter Indwelling Catheter # Voids 0 # Bowel Movements 2 ABP, PAP, CO, CI - Last Documented Arterial Blood Pressure 122/52 - Exam Patient on mechanical ventilation, sedated. - Labs CBC & Chem 7: 12/23/19 04:10 12/23/19 14:40 Labs: Abnormal Lab Results - Last 24 Hours (Table) 12/22/19 12/22/19 12/22/19 Range/Units 18:27 19:51 22:07 RBC (3.80-5.40) m/uL Hgb (11.4-16.0) gm/dL Hct (34.0-46.0) % RDW (11.5-15.5) % Lymphocytes # (1.0-4.8) k/uL ABG pH (7.35-7.45) ABG pO2 (83-108) mmHg ABG HCO3 (21-25) mmol/L ABG Total CO2 (19-24) mmol/L ABG O2 Saturation (94-97) % Sodium (137-145) mmol/L Potassium (3.5-5.1) mmol/L Carbon Dioxide (22-30) mmol/L BUN (7-17) mg/dL Glucose (74-99) mg/dL POC Glucose (mg/dL) 143 H 158 H 138 H (75-99) mg/dL AST (14-36) U/L ALT (4-34) U/L Alkaline Phosphatase (38-126) U/L Lactate Dehydrogenase (313-618) U/L Creatine Kinase (30-135) U/L Total Protein (6.3-8.2) g/dL Albumin (3.5-5.0) g/dL 12/23/19 12/23/19 12/23/19 Range/Units 00:05 02:04 04:10 RBC 3.52 L (3.80-5.40) m/uL Hgb 9.4 L (11.4-16.0) gm/dL Hct 29.2 L (34.0-46.0) % RDW 16.2 H (11.5-15.5) % Lymphocytes # 0.8 L (1.0-4.8) k/uL ABG pH (7.35-7.45) ABG pO2 (83-108) mmHg ABG HCO3 (21-25) mmol/L ABG Total CO2 (19-24) mmol/L ABG O2 Saturation (94-97) % Sodium (137-145) mmol/L Potassium (3.5-5.1) mmol/L Carbon Dioxide (22-30) mmol/L BUN (7-17) mg/dL Glucose (74-99) mg/dL POC Glucose (mg/dL) 121 H 143 H (75-99) mg/dL AST (14-36) U/L ALT (4-34) U/L Alkaline Phosphatase (38-126) U/L Lactate Dehydrogenase (313-618) U/L Creatine Kinase (30-135) U/L Total Protein (6.3-8.2) g/dL Albumin (3.5-5.0) g/dL 12/23/19 12/23/19 12/23/19 Range/Units 04:10 04:14 05:33 RBC (3.80-5.40) m/uL Hgb (11.4-16.0) gm/dL Hct (34.0-46.0) % RDW (11.5-15.5) % Lymphocytes # (1.0-4.8) k/uL ABG pH 7.47 H (7.35-7.45) ABG pO2 119 H (83-108) mmHg ABG HCO3 30 H (21-25) mmol/L ABG Total CO2 31 H (19-24) mmol/L ABG O2 Saturation 98.7 H (94-97) % Sodium 136 L (137-145) mmol/L Potassium 3.4 L (3.5-5.1) mmol/L Carbon Dioxide 31 H (22-30) mmol/L BUN 25 H (7-17) mg/dL Glucose 167 H (74-99) mg/dL POC Glucose (mg/dL) 179 H (75-99) mg/dL AST 89 H (14-36) U/L ALT 114 H (4-34) U/L Alkaline Phosphatase 217 H (38-126) U/L Lactate Dehydrogenase 1360 H (313-618) U/L Creatine Kinase 147 H (30-135) U/L Total Protein 5.6 L (6.3-8.2) g/dL Albumin 3.1 L (3.5-5.0) g/dL 12/23/19 12/23/19 12/23/19 Range/Units 05:45 09:35 11:57 RBC (3.80-5.40) m/uL Hgb (11.4-16.0) gm/dL Hct (34.0-46.0) % RDW (11.5-15.5) % Lymphocytes # (1.0-4.8) k/uL ABG pH (7.35-7.45) ABG pO2 (83-108) mmHg ABG HCO3 (21-25) mmol/L ABG Total CO2 (19-24) mmol/L ABG O2 Saturation (94-97) % Sodium (137-145) mmol/L Potassium (3.5-5.1) mmol/L Carbon Dioxide (22-30) mmol/L BUN (7-17) mg/dL Glucose (74-99) mg/dL POC Glucose (mg/dL) 164 H 135 H 152 H (75-99) mg/dL AST (14-36) U/L ALT (4-34) U/L Alkaline Phosphatase (38-126) U/L Lactate Dehydrogenase (313-618) U/L Creatine Kinase (30-135) U/L Total Protein (6.3-8.2) g/dL Albumin (3.5-5.0) g/dL 12/23/19 12/23/19 Range/Units 13:46 16:20 RBC (3.80-5.40) m/uL Hgb (11.4-16.0) gm/dL Hct (34.0-46.0) % RDW (11.5-15.5) % Lymphocytes # (1.0-4.8) k/uL ABG pH (7.35-7.45) ABG pO2 (83-108) mmHg ABG HCO3 (21-25) mmol/L ABG Total CO2 (19-24) mmol/L ABG O2 Saturation (94-97) % Sodium (137-145) mmol/L Potassium (3.5-5.1) mmol/L Carbon Dioxide (22-30) mmol/L BUN (7-17) mg/dL Glucose (74-99) mg/dL POC Glucose (mg/dL) 194 H 174 H (75-99) mg/dL AST (14-36) U/L ALT (4-34) U/L Alkaline Phosphatase (38-126) U/L Lactate Dehydrogenase (313-618) U/L Creatine Kinase (30-135) U/L Total Protein (6.3-8.2) g/dL Albumin (3.5-5.0) g/dL Microbiology - Last 24 Hours (Table) 12/21/19 17:05 Catheter Tip Culture - Preliminary Catheter Tip Coagulase Negative Staph Assessment and Plan Assessment: * Myasthenia gravis. Patient is status post treatment with IVIG about a month ago for myasthenia gravis exacerbation. Current myasthenia gravis status u ncertain, as patient is sedated. * Acute multifocal pneumonia, due to Covid-19. * Ventilator-dependent respiratory failure with ARDS. * Diabetes poorly controlled * Obesity Plan: * Patient's myasthenia gravis cannot be assessed at this time. Examination limited due to patient being sedated. * Treatment of COVID as per ID and critical care. * If she develops any signs of myasthenia gravis exacerbation, after resolution of pneumonia, we will consider treatment with IVIG. * Your medical/critical care management. * Neurology will sign off. Please call neurology, once patient's pulmonary/COVID process has come under control and is showing signs of myasthenia gravis exacerbation, or if there is difficulty with weaning off ventilator.
[2019-12-23 17:50] LABS: Glucose,Whole Blood 155 mg/dL (75-99)
[2019-12-23] MEDS: SODIUM CHLORIDE 0.9% 1,000 ML IV SCH (18:18)
[2019-12-23 20:43] LABS: Glucose,Whole Blood 170 mg/dL (75-99)
[2019-12-23 22:37] LABS: Glucose,Whole Blood 138 mg/dL (75-99)
--- NOTE | 2019-12-24 00:02 | PN ---
PROGRESS NOTE DATE OF SERVICE: 12/23/2019. REASON FOR FOLLOW UP: 1. Acute COVID-19 pneumonia. 2. Positive catheter culture with coagulase-negative Staph. INTERVAL HISTORY: The patient is currently afebrile. The patient is hemodynamically stable. FiO2 is currently at 40%, PEEP has been slightly cut down. Tolerating tube feeds. No diarrhea has been reported. PHYSICAL EXAMINATION: Blood pressure 144/87 with a pulse of 83, temperature 98. She is 94% on 40% FiO2. General description is a middle-aged female lying in bed in no distress. Respiratory system: Unlabored breathing, clear to auscultation anteriorly. Heart S1, S2. Regular rate and rhythm. Abdomen soft, no tenderness. LABS: Hemoglobin 9.4, white count 5.5. BUN of 25, creatinine 0.79. Liver enzymes mildly elevated and LDH down to 1360. DIAGNOSTIC IMPRESSION/PLAN: 1. Patient with acute respiratory failure which is multifactorial in this patient who did have a component of acute Covid-19 pneumonia. The patient has completed her Plaquenil therapy, also received . Continue with respiratory support and monitor the patient closely secondary bacterial infection. 2. The patient with positive catheter tip culture with Staph epidermidis. He did have blood cultures obtained which are currently pending. If those culture remains to be negative, no need for vancomycin. 3. We will continue monitor the patient closely. Continue supportive care. MIKE / LINDA: [id number] /
[2019-12-24 00:05] LABS: Glucose,Whole Blood 129 mg/dL (75-99)
--- NOTE | 2019-12-24 00:59 | PN ---
PROGRESS NOTE 59-year-old white female remains on Covid-19 pneumonia on vent protocol. The patient is slowly improving FiO2 0.4. Lasix 40 IV q.8h and Lovenox 120 subcu every 12 hours. LDH 1360. Temp 99.3, pulse 74, respiratory is 26, O2 94, blood pressure 129/71. Chest decent breath sounds and no wheeze. Cardiac S1, S2. Abdomen distended. Obesity. Neurologic: Resting comfortably on vent. SKIN: No rashes. Endocrine BMI is over 40. Labs were reviewed. ABG reviewed. ASSESSMENT AND PLAN: 1. Acute hypoxic hypercapnic respiratory failure. 2. Covid-19 pneumonia. 3. Severe ARDS. 4. Acute septic shock secondary to pneumonia. 5. Myasthenia gravis. 6. Acute elevation inflammatory markers of the LDH, C reactive Covid-19 infection. 7. Elevated D-dimer. 8. Diabetes mellitus type 2. 9. Morbid obesity. 10.Gastroesophageal reflux disease. 11.Hypertension. 12.Nicotine addiction. 13.Anxiety. 14.Chronic kidney disease stage 3. 15.Congestive heart failure, diastolic dysfunction. The patient remains on the ventilator. We will try to wean as tolerated. PEEP is being cut down to 15. Continue diuretics, high dose Lovenox. Continue with 16 hours prone. Please see further orders. The patient is slowly improving. MMODL / IJN: [id number] /
[2019-12-24 01:57] LABS: Glucose,Whole Blood 138 mg/dL (75-99)
[2019-12-24] MEDS: fentaNYL (PF) 1,000 MCG in SODIUM CHLORIDE 0.9% 80 ML IV SCH ×5 (01:58→23:39)
[2019-12-24] MEDS: PROPOFOL 1,000 MG in EMPTY BAG 1 BAG IV SCH ×7 (02:58→23:19)
[2019-12-24 04:38] LABS: Glucose,Whole Blood 172 mg/dL (75-99)
[2019-12-24 05:05] LABS: Anisocytosis Slight; HCT 29.8 % (34.0-46.0); HGB 9.4 gm/dL (11.4-16.0); Hypochromasia Marked; MCH 26.3 pg (25.0-35.0); MCHC 31.4 g/dL (31.0-37.0); MCV 83.8 fL (80.0-100.0); Mean Platelet Volume 8.6; Platelet Count 318 k/uL (150-450); Poikilocytosis Slight; RBC 3.56 m/uL (3.80-5.40); RDW 16.2 % (11.5-15.5); WBC 5.4 k/uL (3.8-10.6)
[2019-12-24 05:20] LABS: ALT 115 U/L (4-34); AST 77 U/L (14-36); African American GFR (CKD) 88 (>60 ml/min/1.73 sqM); Alkaline Phosphatase 206 U/L (38-126); Anion Gap 9 mmol/L; Blood Urea Nitrogen 24 mg/dL (7-17); Calcium 8.4 mg/dL (8.4-10.2); Carbon Dioxide 29 mmol/L (22-30); Chloride 99 mmol/L (98-107); Creatine Kinase 92 U/L (30-135); Glucose 156 mg/dL (74-99); Non-African American GFR(CKD) 76 (>60 ml/min/1.73 sqM); Potassium 3.3 mmol/L (3.5-5.1); Sodium 137 mmol/L (137-145); Total Bilirubin 0.7 mg/dL (0.2-1.3); Total Protein 5.4 g/dL (6.3-8.2)
[2019-12-24 05:22] LABS: Band Neutrophils % 20 %; Eosinophils # (M) 0.22 k/uL (0-0.7); Lymphocytes # (M) 1.03 k/uL (1.0-4.8); Metamyelocytes # (M) 0.16 k/uL (0); Metamyelocytes % 3 %; Monocytes # (M) 0.05 k/uL (0-1.0); Neutrophils % (M) 54 %; Nucleated Red Blood Cells 0 /100 WBC (0-0); Total Cells Counted 200
[2019-12-24 05:23] LABS: Anisocytosis (M) Present; Poikilocytosis (M) Present; Polychromasia Present
[2019-12-24 05:37] LABS: C Reactive Protein <5.0 mg/L (<10.0)
[2019-12-24 05:45] LABS: LDH 1278 U/L (313-618)
[2019-12-24 06:05] LABS: ABG Base Excess 5.9 mmol/L; ABG HCO3 29 mmol/L (21-25); ABG Oxygen Saturation 96.2 % (94-97); ABG PCO2 39 mmHg (35-45); ABG PH 7.49 (7.35-7.45); ABG PO2 78 mmHg (83-108); ABG TCO2 31 mmol/L (19-24); Allen Test Performed? Yes
[2019-12-24 06:10] LABS: Glucose,Whole Blood 145 mg/dL (75-99)
[2019-12-24] MEDS: POTASSIUM CHLORIDE 20 MEQ in WATER FOR INJECTION 1 100ML.BAG IVPB SCH ×4 (07:01→18:54)
[2019-12-24 08:35] LABS: Glucose,Whole Blood 129 mg/dL (75-99)
[2019-12-24] MEDS: levETIRAcetam ORAL SOLN 500 MG/5 ML CUP PO SCH ×2 (10:00→20:11)
[2019-12-24] MEDS: PANTOPRAZOLE 40 MG/10 ML VIAL IVP SCH (10:00)
[2019-12-24] MEDS: CHLORHEXIDINE GLUCONATE 15 ML CUP MUCOUS MEM SCH ×2 (10:00→20:11)
[2019-12-24] MEDS: ENOXAPARIN 120 MG/0.8 ML SYRINGE SQ SCH ×3 (10:00→20:13)
[2019-12-24] MEDS: HYDROCORTISONE SUCCINATE 100 MG/2 ML VIAL IV SCH ×2 (10:00→16:35)
[2019-12-24] MEDS: FUROSEMIDE 10 MG/ML 4 ML VIAL IV SCH ×2 (10:01→16:35)
[2019-12-24 10:12] LABS: Glucose,Whole Blood 137 mg/dL (75-99)
[2019-12-24 10:21] LABS: Ferritin 68.4 ng/mL (10.0-291.0)
--- NOTE | 2019-12-24 11:51 | P.PN ---
Subjective Progress Note Date: 12/24/19 Principal diagnosis: Acute hypoxic respiratory failure secondary to CoVID 19 pneumonitis The patient is seen today 12/24/2019 in follow-up in the intensive care unit. She remains intubated and on the mechanical ventilator. Current settings assist-control at a rate of 26, tidal volume 400, FiO2 40% and a PEEP of 15. Morning blood gases reveal pO2 78, pCO2 39, pH 7.49. She is sedated with propofol at 75 mcg/kg/m. Fentanyl at 3 mcg/kg/h. Insulin drip at 3 units per hour. 0.9 normal saline at 20 mL per hour. She is being nourished with Vital HPI 12 ML's per hour which is goal. Blood culture reveals no growth. Catheter tip positive for Staphylococcus epidermidis. White count 5.4. Hemoglobin 9.4. Sodium 137. Potassium 3.3. Creatinine 0.84. AST 77. ALT 1:15. LDH 1278. C- reactive protein less than 5. D-dimer 1.08. She is continued on Lovenox 120 mg subcu every 12 hours, Lasix 40 mg every 8 hours, IV Solu-Cortef. Chest x-ray pending. She is currently prone. Objective - Vital Signs Vital signs: Vital Signs Temp 97.6 F 12/24/19 08:00 Pulse 79 12/24/19 11:00 Resp 26 H 12/24/19 11:00 BP 137/65 12/24/19 11:00 Pulse Ox 95 12/24/19 11:00 Intake & Output 12/23/19 12/24/19 12/24/19 18:59 06:59 18:59 Intake Total 1354.717 982.821 328 Output Total 1005 1245 305 Balance 349.717 -262.179 23 Weight 129.6 kg 128.8 kg Intake: IV 276 299 92 Pressure Bag 36 39 12 Sodium Chloride 0.9% 1, 240 260 80 000 ml @ 20 mls/hr IV . Q24H [facility] Rx#:[id number] Intake, IV Titration 934.717 605.821 200 Amount Insulin Regular 100 unit 42.40 13.181 In Sodium Chloride 0.9% 100 ml @ Per Protocol IV .Q0M [facility] Rx#:[id number] Potassium Chloride 20 meq 100 In Water For Injection 1 100ml.bag @ 50 mls/hr IVPB Q2H [facility] Rx#: [id number] Potassium Chloride 20 meq 100 In Water For Injection 1 100ml.bag @ 50 mls/hr IVPB Q2H [facility] Rx#: [id number] Propofol 1,000 mg In 382.727 300.000 100 Empty Bag 1 bag @ Titrate IV .Q0M [facility] Rx#: [id number] fentaNYL (PF) 1,000 mcg 309.590 292.64 100 In Sodium Chloride 0.9% 80 ml @ 1 MCG/KG/HR 8.39 mls/hr IV .[id number] [facility] Rx #:[id number] Tube Feeding 144 48 36 Other 30 Output: Urine 1005 1245 305 Other: Voiding Method Indwelling Catheter Indwelling Catheter Indwelling Catheter # Bowel Movements 2 ABP, PAP, CO, CI - Last Documented Arterial Blood Pressure 167/61 - Exam Physical Exam: Revealed a morbidly obese 59-year-old female on mechanical ventilation, sedated. Alternating supine and prone positioning. Head: Cushingoid, no neck masses, endotracheal tube and orogastric tube is intact. HEENT: Neck is supple. PERRLA, EOMI, no icterus, no JVD. Central line seems to be intact. Chest: Diminished breath sounds and crackles at the bases. Cardiac Exam: Normal S1 and S2, no S3 gallop, no murmur. Abdomen: Obese, Soft, nontender, no megaly, no rebound, no guarding, normal bowel sounds. Extremities: No clubbing, no edema, no cyanosis. Neurological Exam: Cannot be assessed, patient is sedated and on mechanical ventilation on propofol and fentanyl. Psychiatric: Could not be assessed. Skin: No rashes. Musculoskeletal: No deformities. - Labs CBC & Chem 7: 12/24/19 04:35 12/24/19 04:35 Labs: Abnormal Lab Results - Last 24 Hours (Table) 12/23/19 12/23/19 12/23/19 Range/Units 11:57 13:46 16:20 RBC (3.80-5.40) m/uL Hgb (11.4-16.0) gm/dL Hct (34.0-46.0) % RDW (11.5-15.5) % Metamyelocytes # (Man) (0) k/uL D-Dimer (<0.60) mg/L FEU ABG pH (7.35-7.45) ABG pO2 (83-108) mmHg ABG HCO3 (21-25) mmol/L ABG Total CO2 (19-24) mmol/L Potassium (3.5-5.1) mmol/L BUN (7-17) mg/dL Glucose (74-99) mg/dL POC Glucose (mg/dL) 152 H 194 H 174 H (75-99) mg/dL AST (14-36) U/L ALT (4-34) U/L Alkaline Phosphatase (38-126) U/L Lactate Dehydrogenase (313-618) U/L Total Protein (6.3-8.2) g/dL Albumin (3.5-5.0) g/dL 12/23/19 12/23/19 12/23/19 Range/Units 17:49 20:43 22:36 RBC (3.80-5.40) m/uL Hgb (11.4-16.0) gm/dL Hct (34.0-46.0) % RDW (11.5-15.5) % Metamyelocytes # (Man) (0) k/uL D-Dimer (<0.60) mg/L FEU ABG pH (7.35-7.45) ABG pO2 (83-108) mmHg ABG HCO3 (21-25) mmol/L ABG Total CO2 (19-24) mmol/L Potassium (3.5-5.1) mmol/L BUN (7-17) mg/dL Glucose (74-99) mg/dL POC Glucose (mg/dL) 155 H 170 H 138 H (75-99) mg/dL AST (14-36) U/L ALT (4-34) U/L Alkaline Phosphatase (38-126) U/L Lactate Dehydrogenase (313-618) U/L Total Protein (6.3-8.2) g/dL Albumin (3.5-5.0) g/dL 12/24/19 12/24/19 12/24/19 Range/Units 00:04 01:55 04:35 RBC 3.56 L (3.80-5.40) m/uL Hgb 9.4 L (11.4-16.0) gm/dL Hct 29.8 L (34.0-46.0) % RDW 16.2 H (11.5-15.5) % Metamyelocytes # (Man) 0.16 H (0) k/uL D-Dimer (<0.60) mg/L FEU ABG pH (7.35-7.45) ABG pO2 (83-108) mmHg ABG HCO3 (21-25) mmol/L ABG Total CO2 (19-24) mmol/L Potassium (3.5-5.1) mmol/L BUN (7-17) mg/dL Glucose (74-99) mg/dL POC Glucose (mg/dL) 129 H 138 H (75-99) mg/dL AST (14-36) U/L ALT (4-34) U/L Alkaline Phosphatase (38-126) U/L Lactate Dehydrogenase (313-618) U/L Total Protein (6.3-8.2) g/dL Albumin (3.5-5.0) g/dL 12/24/19 12/24/19 12/24/19 Range/Units 04:35 04:35 04:37 RBC (3.80-5.40) m/uL Hgb (11.4-16.0) gm/dL Hct (34.0-46.0) % RDW (11.5-15.5) % Metamyelocytes # (Man) (0) k/uL D-Dimer 1.08 H (<0.60) mg/L FEU ABG pH (7.35-7.45) ABG pO2 (83-108) mmHg ABG HCO3 (21-25) mmol/L ABG Total CO2 (19-24) mmol/L Potassium 3.3 L (3.5-5.1) mmol/L BUN 24 H (7-17) mg/dL Glucose 156 H (74-99) mg/dL POC Glucose (mg/dL) 172 H (75-99) mg/dL AST 77 H (14-36) U/L ALT 115 H (4-34) U/L Alkaline Phosphatase 206 H (38-126) U/L Lactate Dehydrogenase 1278 H (313-618) U/L Total Protein 5.4 L (6.3-8.2) g/dL Albumin 3.0 L (3.5-5.0) g/dL 12/24/19 12/24/19 12/24/19 Range/Units 06:00 06:07 08:33 RBC (3.80-5.40) m/uL Hgb (11.4-16.0) gm/dL Hct (34.0-46.0) % RDW (11.5-15.5) % Metamyelocytes # (Man) (0) k/uL D-Dimer (<0.60) mg/L FEU ABG pH 7.49 H (7.35-7.45) ABG pO2 78 L (83-108) mmHg ABG HCO3 29 H (21-25) mmol/L ABG Total CO2 31 H (19-24) mmol/L Potassium (3.5-5.1) mmol/L BUN (7-17) mg/dL Glucose (74-99) mg/dL POC Glucose (mg/dL) 145 H 129 H (75-99) mg/dL AST (14-36) U/L ALT (4-34) U/L Alkaline Phosphatase (38-126) U/L Lactate Dehydrogenase (313-618) U/L Total Protein (6.3-8.2) g/dL Albumin (3.5-5.0) g/dL 12/24/19 Range/Units 10:10 RBC (3.80-5.40) m/uL Hgb (11.4-16.0) gm/dL Hct (34.0-46.0) % RDW (11.5-15.5) % Metamyelocytes # (Man) (0) k/uL D-Dimer (<0.60) mg/L FEU ABG pH (7.35-7.45) ABG pO2 (83-108) mmHg ABG HCO3 (21-25) mmol/L ABG Total CO2 (19-24) mmol/L Potassium (3.5-5.1) mmol/L BUN (7-17) mg/dL Glucose (74-99) mg/dL POC Glucose (mg/dL) 137 H (75-99) mg/dL AST (14-36) U/L ALT (4-34) U/L Alkaline Phosphatase (38-126) U/L Lactate Dehydrogenase (313-618) U/L Total Protein (6.3-8.2) g/dL Albumin (3.5-5.0) g/dL Microbiology - Last 24 Hours (Table) 12/22/19 23:45 Blood Culture - Preliminary Blood No Growth after 24 hours 12/21/19 17:05 Catheter Tip Culture - Preliminary Catheter Tip Staphylococcus epidermidis Assessment and Plan Assessment: 1 Acute hypoxic and hypercapnic respiratory failure secondary to COVID 19 related pneumonia, patient was intubated on 12/13/2019. She's been placed in the prone position approximate 16 hours per day. 2 Severe ARDS 3 Acute septic shock, likely secondary to pneumonia, improved 4 History of myasthenia gravis, status post IVIG treatments 5 Acute elevation of inflammatory markers including lactate dehydrogenase, C- reactive protein related to Covid 19 infection 6 Elevated d-dimer related to acute Covid 19 infection, and patient is covered with therapeutic doses of Lovenox 7 Diabetes mellitus type 2, poorly controlled 8 Morbid obesity 9 GERD/reflux 10 Hypertension 11 Former smoker 12 History of anxiety 13 Chronic kidney disease stage III at baseline 14 Chronic CHF with diastolic dysfunction Plan The patient was seen and evaluated by Dr. Hawthorne Chest x-ray, ABGs and labs reviewed Continue current vent settings Continue diuretics Overall prognosis remains quite guarded Chest x-ray while supine Continue with 16 hours prone, 8 hour supine as tolerated We'll continue to follow and make further recommendations based on her clinical status. Critical care time 35 minutes I, the cosigning physician, performed a history & physical examination of the patient. Lungs sounds few scattered rhonchi, crackles in the posterior bases. Maintaining good O2 saturations in the 90s on 40% FiO2 and a PEEP of 15 on mechanical ventilator. I discussed the assessment and plan of care with my nurse practitioner, Serena Ronquillo. I attest to the above note as dictated by her.
[2019-12-24 12:07] LABS: Glucose,Whole Blood 170 mg/dL (75-99)
--- NOTE | 2019-12-24 12:56 | XR ---
EXAMINATION TYPE: XR chest 1V portable DATE OF EXAM: 12/24/2019 HISTORY: sob. REFERENCE: Previous study dated 12/23/2019. FINDINGS: The patient is ET tube and NG tube remain in place, unchanged in appearance. A left interna l jugular catheter is in place. Its tip is in the superior vena cava. There continues be patchy, bilateral airspace disease. The heart is mildly prominent. There is blunti ng of the right CP angle and I could not exclude a small effusion. IMPRESSION: 1. PATCHY BILATERAL AIRSPACE DISEASE. 2. CARDIOMEGALY. 3. I COULD NOT EXCLUDE A SMALL, LEFT EFFUSION.
[2019-12-24 15:09] LABS: Glucose,Whole Blood 213 mg/dL (75-99)
[2019-12-24] MEDS: ENOXAPARIN 150 MG/ML SYRINGE SQ SCH ×2 (15:21→20:54)
[2019-12-24 16:30] LABS: Glucose,Whole Blood 182 mg/dL (75-99)
[2019-12-24] MEDS: SODIUM CHLORIDE 0.9% 1,000 ML IV SCH (16:36)
[2019-12-24 18:02] LABS: Glucose,Whole Blood 181 mg/dL (75-99)
[2019-12-24 20:15] LABS: Glucose,Whole Blood 172 mg/dL (75-99)
[2019-12-24 22:16] LABS: Glucose,Whole Blood 159 mg/dL (75-99)
--- NOTE | 2019-12-24 22:16 | PN ---
PROGRESS NOTE DATE OF SERVICE: 12/24/2019 REASON FOR FOLLOWUP: 1. Acute COVID-19 pneumonia. 2. Positive catheter culture with Staph epi. INTERVAL HISTORY: The patient is currently afebrile. The patient is hemodynamically stable. FiO2 is currently 40%. She has some diarrhea. No worsening reported by the nursing staff. PHYSICAL EXAMINATION: On examination, her blood pressure is 126/68 with a pulse of 93, temperature 98. She is 95% on 40% FiO2. General description is a middle-aged female lying in bed in no distress. Respiratory system: Unlabored breathing, decreased breath sounds at the bases. No wheeze. HEART: S1, S2. Regular rate and rhythm. ABDOMEN: Soft, no distention. LABS: Hemoglobin 11.4, white count 5.4, BUN of 24, creatinine 0.84. DIAGNOSTIC IMPRESSION AND PLAN: 1. Patient with acute respiratory failure which is likely multifactorial in this patient who did have acute COVID-19 pneumonia for which the patient therapy, continue steroids and bronchodilators and respiratory support. 2. Patient with diarrhea with exposure to antibiotic. Will check a stool for C diff and treat if positive. 3. Positive catheter culture with Staph epi likely skin contaminant as the corresponding blood cultures has been negative. No need for vancomycin at this point. MMODL / IJN: [id number] /
--- NOTE | 2019-12-24 22:56 | PN ---
PROGRESS NOTE The patient was seen, ventilated on the ventilator, FiO2 40%, PEEP 15. ABGs reviewed. Insulin drip remains at 3 units an hour, normal saline at 20 mL/h. Blood cultures are negative. Catheter tip positive for Staph epidermidis. White count 5.4, sodium 137, potassium 3.3, LDH 1278, CRP less than 5. D-dimer 1.08. She is on Lovenox 120 mg subcu q.12 hours, Lasix 40 q.8h, IV Solu-Cortef. Alternating prone and supine. Blood pressure 137/65, pulse ox 95, temperature 97.6, pulse 79, respiratory 18-26. Morbidly obese white female lying prone. Lungs are essentially clear. Cardiovascular S1, S2. Neurologic: Cranial nerves are intact. Glucose mid 100s. ABGs reviewed. ASSESSMENT: 1. Acute hypoxic hypercapnic respiratory failure secondary to Covid-19. 2. ARDS. 3. Acute septic shock secondary to pneumonia. 4. Myasthenia gravis. 5. Elevated D-dimer. 6. Diabetes mellitus type 2. 7. Morbid obesity. 8. Gastroesophageal reflux disease. 9. Hypertension. 10.Anxiety. 11.Chronic kidney disease stage 3. 12.Congestive heart failure. 13.Diastolic dysfunction. Continue diuretics. Guarded prognosis. Wean off PEEP and FiO2 as necessary. Follow up in the next 24 to 48 hours. MMODL / IJN: [id number] /
[2019-12-25] MEDS: FUROSEMIDE 10 MG/ML 4 ML VIAL IV SCH ×4 (00:10→23:10)
[2019-12-25] MEDS: HYDROCORTISONE SUCCINATE 100 MG/2 ML VIAL IV SCH ×4 (00:11→23:10)
[2019-12-25 00:16] LABS: Glucose,Whole Blood 115 mg/dL (75-99)
[2019-12-25 02:11] LABS: Glucose,Whole Blood 150 mg/dL (75-99)
[2019-12-25] MEDS: INSULIN REGULAR 100 UNIT in SODIUM CHLORIDE 0.9% 100 ML IV SCH (03:06)
[2019-12-25 04:10] LABS: Glucose,Whole Blood 160 mg/dL (75-99)
[2019-12-25] MEDS: PROPOFOL 1,000 MG in EMPTY BAG 1 BAG IV SCH ×8 (04:10→23:07)
[2019-12-25 04:41] LABS: Anisocytosis Slight; Basophils % (A) 1 %; Eosinophils # (A) 0.2 k/uL (0-0.7); Eosinophils % (A) 3 %; HCT 29.5 % (34.0-46.0); HGB 9.4 gm/dL (11.4-16.0); Hypochromasia Marked; Lymphocytes # (A) 0.9 k/uL (1.0-4.8); Lymphocytes % (A) 18 %; MCH 26.6 pg (25.0-35.0); MCHC 31.8 g/dL (31.0-37.0); MCV 83.8 fL (80.0-100.0); Mean Platelet Volume 8.5; Monocytes # (A) 0.4 k/uL (0-1.0); Monocytes % (A) 8 %; Neutrophils # (A) 3.4 k/uL (1.3-7.7); Neutrophils % (A) 66 %; Platelet Count 334 k/uL (150-450); Poikilocytosis Slight; RBC 3.51 m/uL (3.80-5.40); RDW 16.4 % (11.5-15.5); WBC 5.2 k/uL (3.8-10.6)
[2019-12-25 04:47] LABS: ALT 123 U/L (4-34); AST 81 U/L (14-36); African American GFR (CKD) >90 (>60 ml/min/1.73 sqM); Alkaline Phosphatase 201 U/L (38-126); Anion Gap 9 mmol/L; Blood Urea Nitrogen 21 mg/dL (7-17); C Reactive Protein <5.0 mg/L (<10.0); Calcium 8.6 mg/dL (8.4-10.2); Carbon Dioxide 27 mmol/L (22-30); Chloride 100 mmol/L (98-107); Creatine Kinase 107 U/L (30-135); Glucose 153 mg/dL (74-99); LDH 1247 U/L (313-618); Non-African American GFR(CKD) 90 (>60 ml/min/1.73 sqM); Potassium 3.3 mmol/L (3.5-5.1); Sodium 136 mmol/L (137-145); Total Bilirubin 0.7 mg/dL (0.2-1.3); Total Protein 5.6 g/dL (6.3-8.2)
[2019-12-25 05:31] LABS: ABG Base Excess 4.6 mmol/L; ABG HCO3 28 mmol/L (21-25); ABG Oxygen Saturation 95.4 % (94-97); ABG PCO2 38 mmHg (35-45); ABG PH 7.48 (7.35-7.45); ABG PO2 74 mmHg (83-108); ABG TCO2 29 mmol/L (19-24); Allen Test Performed? Yes
[2019-12-25 05:50] LABS: Glucose,Whole Blood 146 mg/dL (75-99)
[2019-12-25] MEDS: fentaNYL (PF) 1,000 MCG in SODIUM CHLORIDE 0.9% 80 ML IV SCH ×2 (08:01→12:30)
[2019-12-25 08:10] LABS: Glucose,Whole Blood 113 mg/dL (75-99)
[2019-12-25] MEDS: CHOLESTYRAMINE (WITH SUGAR) 4 GM PACKET PO SCH ×2 (08:56→20:24)
[2019-12-25] MEDS: PANTOPRAZOLE 40 MG/10 ML VIAL IVP SCH (08:56)
[2019-12-25] MEDS: levETIRAcetam ORAL SOLN 500 MG/5 ML CUP PO SCH ×2 (08:56→20:23)
[2019-12-25] MEDS: ENOXAPARIN 150 MG/ML SYRINGE SQ SCH ×2 (08:56→20:22)
[2019-12-25] MEDS: CHLORHEXIDINE GLUCONATE 15 ML CUP MUCOUS MEM SCH ×2 (08:56→20:23)
[2019-12-25] MEDS: POTASSIUM CHLORIDE 20 MEQ in WATER FOR INJECTION 1 100ML.BAG IVPB SCH ×2 (08:57→10:24)
[2019-12-25 09:19] LABS: Glucose,Whole Blood 112 mg/dL (75-99)
[2019-12-25 10:43] LABS: Glucose,Whole Blood 148 mg/dL (75-99)
--- NOTE | 2019-12-25 11:34 | P.PN ---
Subjective Progress Note Date: 12/25/19 Principal diagnosis: Acute hypoxic respiratory failure secondary to CoVID 19 pneumonitis The patient is seen today 12/25/2019 in follow-up in the intensive care unit. Remains intubated on mechanical ventilator on assist control at a rate of 26, FiO2 40%, tidal volume 400, PEEP of 15. Morning blood gases reveal a PO2 of 74, P CO2 of 38, pH 7.48. She remains sedated on propofol at 75 ML's per hour, fentanyl at 3 mcg/mg/h, also on insulin drip at 3 units per hour. Being nour ished with vital HPV at 12 ML's which is her goal. She did have significant residual throughout the night. Blood, urine and sputum cultures had revealed no growth. Follow-up blood culture no growth. Catheter tip with Staphylococcus epidermidis. White count 5.2. Hemoglobin 9.4. Sodium 136. Potassium 3.3. Creatinine 0.74. AST 81. ALT 123. LDH 1247. C-reactive protein less than 5. Creatinine kinase 107. C. difficile screen negative. She remains on Lovenox at 120 mg subcu every 12 hours, IV Lasix 40 mg every 8 hours, IV site Cortef. Objective - Vital Signs Vital signs: Vital Signs Temp 98.4 F 12/25/19 08:00 Pulse 68 12/25/19 11:00 Resp 26 H 12/25/19 11:00 BP 126/66 12/25/19 11:00 Pulse Ox 92 L 12/25/19 11:00 Intake & Output 12/24/19 12/25/19 12/25/19 18:59 06:59 18:59 Intake Total 783.189 9264.618 259.022 Output Total 1730 1835 1100 Balance -825.286 -823.382 -840.978 Intake: IV 253 376 115 Potassium Chloride 20 meq 100 In Water For Injection 1 100ml.bag @ 50 mls/hr IVPB Q2H [facility] Rx#: [id number] Pressure Bag 33 36 15 Sodium Chloride 0.9% 1, 220 240 100 000 ml @ 20 mls/hr IV . Q24H [facility] Rx#:[id number] Intake, IV Titration 531.714 635.618 144.022 Amount Insulin Regular 100 unit 31.714 37.455 16.008 In Sodium Chloride 0.9% 100 ml @ Per Protocol IV .Q0M [facility] Rx#:[id number] Propofol 1,000 mg In 300 400 128.014 Empty Bag 1 bag @ Titrate IV .Q0M [facility] Rx#: [id number] fentaNYL (PF) 1,000 mcg 200 198.163 In Sodium Chloride 0.9% 80 ml @ 1 MCG/KG/HR 8.39 mls/hr IV .[id number] [facility] Rx #:[id number] Tube Feeding 120 Output: Urine 1730 1835 1100 Other: Voiding Method Indwelling Catheter Indwelling Catheter Indwelling Catheter ABP, PAP, CO, CI - Last Documented Arterial Blood Pressure 149/64 - Exam Physical Exam: Revealed a morbidly obese 59-year-old female on mechanical ventilation, sedated. Alternating supine and prone positioning. Head: Cushingoid, no neck masses, endotracheal tube and orogastric tube is intact. HEENT: Neck is supple. PERRLA, EOMI, no icterus, no JVD. Central line seems to be intact. Chest: Diminished breath sounds and crackles at the bases. Cardiac Exam: Normal S1 and S2, no S3 gallop, no murmur. Abdomen: Obese, Soft, nontender, no megaly, no rebound, no guarding, normal bowel sounds. Extremities: No clubbing, no edema, no cyanosis. Neurological Exam: Cannot be assessed, patient is sedated and on mechanical ventilation on propofol and fentanyl. Psychiatric: Could not be assessed. Skin: No rashes. Musculoskeletal: No deformities. - Labs CBC & Chem 7: 12/25/19 03:45 12/25/19 03:45 Labs: Abnormal Lab Results - Last 24 Hours (Table) 12/24/19 12/24/19 12/24/19 Range/Units 12:05 15:08 16:28 RBC (3.80-5.40) m/uL Hgb (11.4-16.0) gm/dL Hct (34.0-46.0) % RDW (11.5-15.5) % Lymphocytes # (1.0-4.8) k/uL ABG pH (7.35-7.45) ABG pO2 (83-108) mmHg ABG HCO3 (21-25) mmol/L ABG Total CO2 (19-24) mmol/L Sodium (137-145) mmol/L Potassium (3.5-5.1) mmol/L BUN (7-17) mg/dL Glucose (74-99) mg/dL POC Glucose (mg/dL) 170 H 213 H 182 H (75-99) mg/dL AST (14-36) U/L ALT (4-34) U/L Alkaline Phosphatase (38-126) U/L Lactate Dehydrogenase (313-618) U/L Total Protein (6.3-8.2) g/dL Albumin (3.5-5.0) g/dL 12/24/19 12/24/19 12/24/19 Range/Units 18:00 20:14 22:15 RBC (3.80-5.40) m/uL Hgb (11.4-16.0) gm/dL Hct (34.0-46.0) % RDW (11.5-15.5) % Lymphocytes # (1.0-4.8) k/uL ABG pH (7.35-7.45) ABG pO2 (83-108) mmHg ABG HCO3 (21-25) mmol/L ABG Total CO2 (19-24) mmol/L Sodium (137-145) mmol/L Potassium (3.5-5.1) mmol/L BUN (7-17) mg/dL Glucose (74-99) mg/dL POC Glucose (mg/dL) 181 H 172 H 159 H (75-99) mg/dL AST (14-36) U/L ALT (4-34) U/L Alkaline Phosphatase (38-126) U/L Lactate Dehydrogenase (313-618) U/L Total Protein (6.3-8.2) g/dL Albumin (3.5-5.0) g/dL 12/25/19 12/25/19 12/25/19 Range/Units 00:13 02:09 03:45 RBC 3.51 L (3.80-5.40) m/uL Hgb 9.4 L (11.4-16.0) gm/dL Hct 29.5 L (34.0-46.0) % RDW 16.4 H (11.5-15.5) % Lymphocytes # 0.9 L (1.0-4.8) k/uL ABG pH (7.35-7.45) ABG pO2 (83-108) mmHg ABG HCO3 (21-25) mmol/L ABG Total CO2 (19-24) mmol/L Sodium (137-145) mmol/L Potassium (3.5-5.1) mmol/L BUN (7-17) mg/dL Glucose (74-99) mg/dL POC Glucose (mg/dL) 115 H 150 H (75-99) mg/dL AST (14-36) U/L ALT (4-34) U/L Alkaline Phosphatase (38-126) U/L Lactate Dehydrogenase (313-618) U/L Total Protein (6.3-8.2) g/dL Albumin (3.5-5.0) g/dL 12/25/19 12/25/19 12/25/19 Range/Units 03:45 04:08 05:28 RBC (3.80-5.40) m/uL Hgb (11.4-16.0) gm/dL Hct (34.0-46.0) % RDW (11.5-15.5) % Lymphocytes # (1.0-4.8) k/uL ABG pH 7.48 H (7.35-7.45) ABG pO2 74 L (83-108) mmHg ABG HCO3 28 H (21-25) mmol/L ABG Total CO2 29 H (19-24) mmol/L Sodium 136 L (137-145) mmol/L Potassium 3.3 L (3.5-5.1) mmol/L BUN 21 H (7-17) mg/dL Glucose 153 H (74-99) mg/dL POC Glucose (mg/dL) 160 H (75-99) mg/dL AST 81 H (14-36) U/L ALT 123 H (4-34) U/L Alkaline Phosphatase 201 H (38-126) U/L Lactate Dehydrogenase 1247 H (313-618) U/L Total Protein 5.6 L (6.3-8.2) g/dL Albumin 3.0 L (3.5-5.0) g/dL 12/25/19 12/25/19 12/25/19 Range/Units 05:48 08:07 09:17 RBC (3.80-5.40) m/uL Hgb (11.4-16.0) gm/dL Hct (34.0-46.0) % RDW (11.5-15.5) % Lymphocytes # (1.0-4.8) k/uL ABG pH (7.35-7.45) ABG pO2 (83-108) mmHg ABG HCO3 (21-25) mmol/L ABG Total CO2 (19-24) mmol/L Sodium (137-145) mmol/L Potassium (3.5-5.1) mmol/L BUN (7-17) mg/dL Glucose (74-99) mg/dL POC Glucose (mg/dL) 146 H 113 H 112 H (75-99) mg/dL AST (14-36) U/L ALT (4-34) U/L Alkaline Phosphatase (38-126) U/L Lactate Dehydrogenase (313-618) U/L Total Protein (6.3-8.2) g/dL Albumin (3.5-5.0) g/dL 12/25/19 Range/Units 10:41 RBC (3.80-5.40) m/uL Hgb (11.4-16.0) gm/dL Hct (34.0-46.0) % RDW (11.5-15.5) % Lymphocytes # (1.0-4.8) k/uL ABG pH (7.35-7.45) ABG pO2 (83-108) mmHg ABG HCO3 (21-25) mmol/L ABG Total CO2 (19-24) mmol/L Sodium (137-145) mmol/L Potassium (3.5-5.1) mmol/L BUN (7-17) mg/dL Glucose (74-99) mg/dL POC Glucose (mg/dL) 148 H (75-99) mg/dL AST (14-36) U/L ALT (4-34) U/L Alkaline Phosphatase (38-126) U/L Lactate Dehydrogenase (313-618) U/L Total Protein (6.3-8.2) g/dL Albumin (3.5-5.0) g/dL Microbiology - Last 24 Hours (Table) 12/22/19 23:45 Blood Culture - Preliminary Blood No Growth after 48 hours Assessment and Plan Assessment: 1 Acute hypoxic and hypercapnic respiratory failure secondary to COVID 19 related pneumonia, patient was intubated on 12/13/2019. She's been placed in the prone position approximate 16 hours per day. 2 Severe ARDS 3 Acute septic shock, likely secondary to pneumonia, improved 4 History of myasthenia gravis, status post IVIG treatments 5 Acute elevation of inflammatory markers including lactate dehydrogenase, C- reactive protein related to Covid 19 infection 6 Elevated d-dimer related to acute Covid 19 infection, and patient is covered with therapeutic doses of Lovenox 7 Diabetes mellitus type 2, poorly controlled 8 Morbid obesity 9 GERD/reflux 10 Hypertension 11 Former smoker 12 History of anxiety 13 Chronic kidney disease stage III at baseline 14 Chronic CHF with diastolic dysfunction Plan The patient was seen and evaluated by Dr. Hawthorne Chest x-ray, ABGs and labs reviewed Decrease the PEEP to 12 Add Reglan 10 mg every 6 hours Continue diuretics Overall prognosis remains quite guarded Continue with 16 hours prone, 8 hour supine as tolerated We'll continue to follow and make further recommendations based on her clinical status. Critical care time 38 minutes I, the cosigning physician, performed a history & physical examination of the patient. Lungs sounds few scattered rhonchi, crackles in the posterior bases. Maintaining good O2 saturations in the 90s on 40% FiO2 and a PEEP of 15 on mechanical ventilator. I discussed the assessment and plan of care with my nurse practitioner, Serena Ronquillo. I attest to the above note as dictated by her.
[2019-12-25] MEDS: METOCLOPRAMIDE 5 MG/ML 2 ML VIAL IVP SCH ×3 (12:16→23:09)
[2019-12-25 12:22] LABS: Glucose,Whole Blood 184 mg/dL (75-99)
[2019-12-25 15:15] LABS: Glucose,Whole Blood 125 mg/dL (75-99)
[2019-12-25] MEDS ORDERED: fentaNYL (PF) 2,500 MCG in SODIUM CHLORIDE 0.9% 200 ML IV SCH (16:30)
[2019-12-25 16:36] LABS: Glucose,Whole Blood 140 mg/dL (75-99)
--- NOTE | 2019-12-25 16:38 | XR ---
EXAMINATION TYPE: XR chest 1V portable DATE OF EXAM: 12/25/2019 COMPARISON: Yesterday HISTORY: Short of breath TECHNIQUE: FINDINGS: Endotracheal tube is 5.5 cm from the [place]. There is left jugular catheter with tip in the superior vena cava. There is nasogastric tube. There are extensive pulmonary airspace infiltrates. H eart is enlarged. There are chest leads. IMPRESSION: Pulmonary edema that appears the same or slightly worse than yesterday. This could relate to RDS.
[2019-12-25 17:57] LABS: Glucose,Whole Blood 102 mg/dL (75-99)
[2019-12-25 20:08] LABS: Glucose,Whole Blood 136 mg/dL (75-99)
[2019-12-25] MEDS: POTASSIUM CHLORIDE 10 MEQ in WATER FOR INJECTION 1 100ML.BAG IVPB SCH ×2 (20:23→23:08)
[2019-12-25] MEDS: SODIUM CHLORIDE 0.9% 1,000 ML IV SCH (20:25)
[2019-12-25 22:22] LABS: Glucose,Whole Blood 151 mg/dL (75-99)
--- NOTE | 2019-12-25 23:35 | PN ---
PROGRESS NOTE She remains on a ventilator more prone than supine. She remains on Reglan q.6 hours, Keppra to prevent seizures, Solu-Cortef 50 q.8, Questran 4 mg b.i.d., Lovenox 120 mg subcu q.12 hours, Protonix 40 daily. Patient got some Lasix today due to some possible fluid overload. Chest x-ray today on 12/25/2019 shows pulmonary edema that appears the same or slightly worse than yesterday. We are awaiting for COVID antibodies to treat her with. White count 5.2, hemoglobin 9.4, sodium 136, potassium 3.3, creatinine 0.74, AST 81, ALT 123, LDH 1247, CRP less than 5. Creatine kinase 107. Temp 98.4, pulse 60 to 68, respiratory 20 to 26, blood pressure 126/66, O2 is 92%. CARDIOVASCULAR: S1, S2. LUNGS: Essentially clear, but diminished. ABDOMEN: Soft, obese. EXTREMITIES: 2 to 3+ edema. LABS: Labs are reviewed. White count 5.2, hemoglobin is 9.4, potassium 3.3, sodium 136. ASSESSMENT: 1. Acute hypoxemic respiratory failure secondary to COVID-19 related pneumonia. 2. Severe ARDS. 3. Septic shock secondary to pneumonia, improved. 4. Myasthenia gravis. 5. Inflammatory elevation on markers due to COVID-19. 6. Elevated D-dimer due to COVID-19. 7. Diabetes mellitus type 2. 8. Gastroesophageal reflux disease. 9. Hypertension. 10.Obesity. 11.Diastolic dysfunction. 12.Kidney disease, stage 3. PLAN: Plan is hopefully get COVID antibodies. PEEP is being decreased every day, currently down to 12, FiO2 is 40%. Continue diuretics, 16 hours prone, 8 hours supine. The patient continues to have clinical improvement. Follow up next 24 to 48 hours. MMODL / IJN: [id number] /
[2019-12-25 23:59] LABS: Glucose,Whole Blood 169 mg/dL (75-99)
[2019-12-26] MEDS ORDERED: SODIUM CHLORIDE 0.9% 1,000 ML IV ONE (00:10)
--- NOTE | 2019-12-26 00:44 | PN ---
PROGRESS NOTE DATE OF SERVICE: 12/25/2019 REASON FOR FOLLOWUP: 1. Pneumonia. 2. Positive catheter culture. INTERVAL HISTORY: The patient is currently afebrile. The patient is hemodynamically stable not on pressor support. FiO2 has been currently at 65%. No pressors and no diarrhea reported. PHYSICAL EXAMINATION: Blood pressure 115/62 with a pulse of 79, temperature 98. She is 99% on 65% FiO2. General description is a middle-aged female intubated on the vent. RESPIRATORY SYSTEM: Unlabored breathing, decreased breath sounds in the bases, no wheeze. HEART: S1, S2. Regular rate and rhythm. ABDOMEN: Soft, no distention. LABS: Hemoglobin 9.4, white count 5.2 BUN of 21, creatinine 0.74, potassium 3.3. DIAGNOSTIC IMPRESSION AND PLAN: 1. Patient with acute COVID-19 pneumonia. This patient did have acute respiratory failure of . The patient has completed her Plaquenil therapy. She also received Actemra currently on Solu-Medrol and Zinc to continue to monitor clinical course closely. 2. Patient with catheter culture positive for Staphylococcus epidermidis, likely contamination. Blood culture has been negative. No need for any vancomycin at this point. 3. Patient with diarrhea, possible antibiotic associated related. Stool for Clostridium difficile is negative. Questran has been added. Will monitor clinical response. MMODL / IJN: [id number] /
[2019-12-26 02:10] LABS: Glucose,Whole Blood 150 mg/dL (75-99)
[2019-12-26 03:54] LABS: Glucose,Whole Blood 165 mg/dL (75-99)
[2019-12-26 05:14] LABS: ABG Base Excess 4.4 mmol/L; ABG HCO3 27 mmol/L (21-25); ABG PCO2 34 mmHg (35-45); ABG PH 7.52 (7.35-7.45); ABG PO2 89 mmHg (83-108); ABG TCO2 28 mmol/L (19-24)
[2019-12-26 05:17] LABS: Allen Test Performed? no
[2019-12-26 05:41] LABS: Anisocytosis Slight; HCT 29.3 % (34.0-46.0); Hypochromasia Marked; MCH 25.7 pg (25.0-35.0); MCHC 30.8 g/dL (31.0-37.0); MCV 83.6 fL (80.0-100.0); Mean Platelet Volume 8.4; Platelet Count 313 k/uL (150-450); Poikilocytosis Slight; RDW 16.4 % (11.5-15.5)
[2019-12-26 05:53] LABS: Glucose,Whole Blood 145 mg/dL (75-99)
[2019-12-26] MEDS: PROPOFOL 1,000 MG in EMPTY BAG 1 BAG IV SCH ×8 (05:54→23:00)
[2019-12-26] MEDS: METOCLOPRAMIDE 5 MG/ML 2 ML VIAL IVP SCH ×4 (05:54→23:42)
[2019-12-26 06:09] LABS: ALT 102 U/L (4-34); AST 56 U/L (14-36); African American GFR (CKD) >90 (>60 ml/min/1.73 sqM); Albumin 2.8 g/dL (3.5-5.0); Alkaline Phosphatase 171 U/L (38-126); Anion Gap 6 mmol/L; Band Neutrophils % 21 %; Blood Urea Nitrogen 21 mg/dL (7-17); Calcium 8.5 mg/dL (8.4-10.2); Carbon Dioxide 29 mmol/L (22-30); Chloride 101 mmol/L (98-107); Creatine Kinase 121 U/L (30-135); Eosinophils # (M) 0.05 k/uL (0-0.7); Glucose 149 mg/dL (74-99); LDH 1060 U/L (313-618); Monocytes # (M) 0.26 k/uL (0-1.0); Neutrophils % (M) 56 %; Non-African American GFR(CKD) 85 (>60 ml/min/1.73 sqM); Nucleated Red Blood Cells 1 /100 WBC (0-0); Potassium 3.2 mmol/L (3.5-5.1); Sodium 136 mmol/L (137-145); Total Bilirubin 0.5 mg/dL (0.2-1.3); Total Cells Counted 200; Total Protein 5.3 g/dL (6.3-8.2)
[2019-12-26 06:10] LABS: Lymphocytes # (M) 0.87 k/uL (1.0-4.8); WBC 5.1 k/uL (3.8-10.6)
[2019-12-26 06:11] LABS: Anisocytosis (M) Present; Poikilocytosis (M) Present
[2019-12-26 06:23] LABS: C Reactive Protein <5.0 mg/L (<10.0)
--- NOTE | 2019-12-26 07:37 | XR ---
EXAMINATION TYPE: XR chest 1V portable DATE OF EXAM: 12/26/2019 COMPARISON: 12/25/2019 HISTORY: SOB, Follow Up FINDINGS: Indwelling tubes and catheters are unchanged. Diffuse bilateral airspace infiltrates persist without significant interval change. Stable appearance of the cardio-mediastinal structures at this time. IMPRESSION: 1. Stable portable chest. Clinical correlation and follow up until resolution is recommended.
[2019-12-26] MEDS: NOREPINEPHRINE 8 MG in SODIUM CHLORIDE 0.9% 250 ML IV SCH ×2 (07:45→23:13)
[2019-12-26 08:15] LABS: Glucose,Whole Blood 108 mg/dL (75-99)
[2019-12-26] MEDS: CHLORHEXIDINE GLUCONATE 15 ML CUP MUCOUS MEM SCH ×2 (08:20→20:18)
[2019-12-26] MEDS: POTASSIUM CHLORIDE 20 MEQ in WATER FOR INJECTION 1 100ML.BAG IVPB SCH ×2 (08:21→11:14)
[2019-12-26] MEDS: PANTOPRAZOLE 40 MG/10 ML VIAL IVP SCH (08:21)
[2019-12-26] MEDS: HYDROCORTISONE SUCCINATE 100 MG/2 ML VIAL IV SCH (08:21)
[2019-12-26] MEDS: levETIRAcetam ORAL SOLN 500 MG/5 ML CUP PO SCH ×2 (08:30→20:18)
[2019-12-26] MEDS: ENOXAPARIN 150 MG/ML SYRINGE SQ SCH (08:31)
[2019-12-26] MEDS: CHOLESTYRAMINE (WITH SUGAR) 4 GM PACKET PO SCH ×2 (08:59→17:08)
[2019-12-26 09:21] LABS: Glucose,Whole Blood 110 mg/dL (75-99)
[2019-12-26] MEDS: FUROSEMIDE 10 MG/ML 4 ML VIAL IV SCH (09:33)
[2019-12-26 10:20] LABS: Glucose,Whole Blood 138 mg/dL (75-99)
[2019-12-26 10:22] LABS: Ferritin 67.2 ng/mL (10.0-291.0)
--- NOTE | 2019-12-26 10:24 | P.PN ---
Subjective Progress Note Date: 12/26/19 This is a 59-year-old female patient, multiple medical problems including history of myasthenia gravis, diabetes mellitus type 2, morbid obesity with a BMI 51.9, hypertension, who came into the emergency department on 12/13/2019 with worsening shortness of breath and fever and cough and the patient was co nfirmed to have 19 infection with pneumonia. The patient had multifocal bilateral pulmonary infiltrates and she was intubated and placed on a mechanical ventilator. She was started on treatment protocol with 19 with Plaquenil. She was given stress dose hydrocortisone as the patient has been chronically maintained on steroids and following that she was brought up to the intensive care units. This patient has subsequently went to ARDS and the patient was placed in the prone positioning for severe hypoxemia and ARDS. Note that the patient has been intubated since 12/13/2019. The patient currently is assist- control mode of ventilation at the rate of 26 with an FiO2 of 40% and a tidal volume of 400 with a PEEP of 15. The patient is sedated with propofol and fentanyl. She is also receiving insulin drip for blood sugar control. She is receiving vital high protein for enteral feeding and nutritional support. She is on IV Lasix 40 mg every 8 hours. She is on hydrocortisone 50 mg every 8 hours. She has completed her Coumadin 19 treatment with Plaquenil. Her chest x-ray is consistent with diffuse bilateral pulmonary infiltrates/ARDS. ET tube is in place. The patient has a left IJ triple-lumen catheter which is also in place. The patient has been receiving prone positioning regarding her pneumonia/ARDS. Along with IV Lasix, the patient has been a negative fluid balance of 1.6 L for yesterday and she is responding nicely to the diuretics. She does have some mild transaminitis. LDH levels have been gradually drifting down and so is the C-reactive protein. Stool for C. diff has been negative. The patient's d-dimer was elevated and the patient was given a therapeutic dose of Lovenox. Subsequently d-dimer levels have dropped down to 1.08. On today's evaluation of 12/26/2019 seeing the patient for a follow-up. The patient remains sedated sedative abdomen mechanical ventilator on propofol for sedation. Ventilator settings remains essentially unchanged. The patient on today's evaluation is on assist control mode at the rate of 26 with a tidal volume of 350 and FiO2 of 50% with a PEEP of 12. The patient is also sedated with propofol at 40 mg per KG per minute. She is also on fentanyl and 1 g per KG per hour. She remains on stress dose hydrocortisone. Normal saline is running at 20 mL an hour. She has cushingoid features in addition to her being a negative fluid balance of 1.6 L as the patient is receiving Lasix 40 mg IV every 24 hours. She is tolerating her enteral feeding for nutritional support. The d-dimer still elevated at 1.08. The liver function tests are still abnormal and the patient has some mild transaminitis. LDH is improving is down to 1060 and the C-reactive protein is down to less than 5. The blood gases from today showed a pH of 7.52 with a pCO2 of 34 and pO2 of 89. The The chest x-ray from today is showing stable bilateral airspace disease persistent without any significant interval change. Objective - Vital Signs Vital signs: Vital Signs Temp 99.1 F 12/26/19 04:15 Pulse 90 12/26/19 06:00 Resp 26 H 12/26/19 06:00 BP 113/66 12/26/19 06:00 Pulse Ox 97 12/26/19 06:00 Intake & Output 12/25/19 12/25/19 12/26/19 06:59 18:59 06:59 Intake Total 1011.618 787.127 7693.852 Output Total 1835 1955 1230 Balance -823.382 -1097.662 -94.148 Weight 131.5 kg Intake: IV 376 276 676 Potassium Chloride 20 meq 100 In Water For Injection 1 100ml.bag @ 50 mls/hr IVPB Q2H [facility] Rx#: [id number] Potassium Chloride 20 meq 400 In Water For Injection 1 100ml.bag @ 50 mls/hr IVPB Q2H [facility] Rx#: [id number] Pressure Bag 36 36 36 Sodium Chloride 0.9% 1, 240 240 240 000 ml @ 20 mls/hr IV . Q24H [facility] Rx#:[id number] Intake, IV Titration 635.618 557.338 201.852 Amount Insulin Regular 100 unit 37.455 29.324 1.852 In Sodium Chloride 0.9% 100 ml @ Per Protocol IV .Q0M [facility] Rx#:[id number] Propofol 1,000 mg In 400 428.014 200 Empty Bag 1 bag @ Titrate IV .Q0M [facility] Rx#: [id number] fentaNYL (PF) 1,000 mcg 198.163 100 In Sodium Chloride 0.9% 80 ml @ 1 MCG/KG/HR 8.39 mls/hr IV .[id number] [facility] Rx #:[id number] Tube Feeding 24 48 Other 210 Output: Urine 1835 1955 1230 Other: Voiding Method Indwelling Catheter Indwelling Catheter Indwelling Catheter ABP, PAP, CO, CI - Last Documented Arterial Blood Pressure 115/53 - Exam Physical Exam: Revealed a morbidly obese 59-year-old female on mechanical ventilation, sedated. Alternating supine and prone positioning. This morning the patient is a supine body position. 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 Head: Cushingoid, no neck masses, endotracheal tube and orogastric tube is intact. HEENT: Neck is supple. PERRLA, EOMI, no icterus, no JVD. Central line seems to be intact. Chest: Diminished breath sounds and crackles at the bases. Cardiac Exam: Normal S1 and S2, no S3 gallop, no murmur. Abdomen: Obese, Soft, nontender, no megaly, no rebound, no guarding, normal bowel sounds. Extremities: No clubbing, no edema, no cyanosis. Neurological Exam: Cannot be assessed, patient is sedated and on mechanical ventilation on propofol and fentanyl. Psychiatric: Could not be assessed. Skin: Examination of the skin revealed no evidence of significant rashes, suspicious appearing nevi or other concerning lesions. Musculoskeletal: No deformities. - Labs CBC & Chem 7: 12/26/19 05:10 12/26/19 05:10 Labs: Abnormal Lab Results - Last 24 Hours (Table) 12/25/19 12/25/19 12/25/19 Range/Units 08:07 09:17 10:41 RBC (3.80-5.40) m/uL Hgb (11.4-16.0) gm/dL Hct (34.0-46.0) % MCHC (31.0-37.0) g/dL RDW (11.5-15.5) % Lymphocytes # (Manual) (1.0-4.8) k/uL Nucleated RBCs (0-0) /100 WBC ABG pH (7.35-7.45) ABG pCO2 (35-45) mmHg ABG HCO3 (21-25) mmol/L ABG Total CO2 (19-24) mmol/L ABG O2 Saturation (94-97) % Sodium (137-145) mmol/L Potassium (3.5-5.1) mmol/L BUN (7-17) mg/dL Glucose (74-99) mg/dL POC Glucose (mg/dL) 113 H 112 H 148 H (75-99) mg/dL AST (14-36) U/L ALT (4-34) U/L Alkaline Phosphatase (38-126) U/L Lactate Dehydrogenase (313-618) U/L Total Protein (6.3-8.2) g/dL Albumin (3.5-5.0) g/dL 12/25/19 12/25/19 12/25/19 Range/Units 12:19 15:14 16:34 RBC (3.80-5.40) m/uL Hgb (11.4-16.0) gm/dL Hct (34.0-46.0) % MCHC (31.0-37.0) g/dL RDW (11.5-15.5) % Lymphocytes # (Manual) (1.0-4.8) k/uL Nucleated RBCs (0-0) /100 WBC ABG pH (7.35-7.45) ABG pCO2 (35-45) mmHg ABG HCO3 (21-25) mmol/L ABG Total CO2 (19-24) mmol/L ABG O2 Saturation (94-97) % Sodium (137-145) mmol/L Potassium (3.5-5.1) mmol/L BUN (7-17) mg/dL Glucose (74-99) mg/dL POC Glucose (mg/dL) 184 H 125 H 140 H (75-99) mg/dL AST (14-36) U/L ALT (4-34) U/L Alkaline Phosphatase (38-126) U/L Lactate Dehydrogenase (313-618) U/L Total Protein (6.3-8.2) g/dL Albumin (3.5-5.0) g/dL 12/25/19 12/25/19 12/25/19 Range/Units 17:55 20:06 22:20 RBC (3.80-5.40) m/uL Hgb (11.4-16.0) gm/dL Hct (34.0-46.0) % MCHC (31.0-37.0) g/dL RDW (11.5-15.5) % Lymphocytes # (Manual) (1.0-4.8) k/uL Nucleated RBCs (0-0) /100 WBC ABG pH (7.35-7.45) ABG pCO2 (35-45) mmHg ABG HCO3 (21-25) mmol/L ABG Total CO2 (19-24) mmol/L ABG O2 Saturation (94-97) % Sodium (137-145) mmol/L Potassium (3.5-5.1) mmol/L BUN (7-17) mg/dL Glucose (74-99) mg/dL POC Glucose (mg/dL) 102 H 136 H 151 H (75-99) mg/dL AST (14-36) U/L ALT (4-34) U/L Alkaline Phosphatase (38-126) U/L Lactate Dehydrogenase (313-618) U/L Total Protein (6.3-8.2) g/dL Albumin (3.5-5.0) g/dL 12/25/19 12/26/19 12/26/19 Range/Units 23:58 02:08 03:53 RBC (3.80-5.40) m/uL Hgb (11.4-16.0) gm/dL Hct (34.0-46.0) % MCHC (31.0-37.0) g/dL RDW (11.5-15.5) % Lymphocytes # (Manual) (1.0-4.8) k/uL Nucleated RBCs (0-0) /100 WBC ABG pH (7.35-7.45) ABG pCO2 (35-45) mmHg ABG HCO3 (21-25) mmol/L ABG Total CO2 (19-24) mmol/L ABG O2 Saturation (94-97) % Sodium (137-145) mmol/L Potassium (3.5-5.1) mmol/L BUN (7-17) mg/dL Glucose (74-99) mg/dL POC Glucose (mg/dL) 169 H 150 H 165 H (75-99) mg/dL AST (14-36) U/L ALT (4-34) U/L Alkaline Phosphatase (38-126) U/L Lactate Dehydrogenase (313-618) U/L Total Protein (6.3-8.2) g/dL Albumin (3.5-5.0) g/dL 12/26/19 12/26/19 12/26/19 Range/Units 05:05 05:10 05:10 RBC 3.50 L (3.80-5.40) m/uL Hgb 9.0 L (11.4-16.0) gm/dL Hct 29.3 L (34.0-46.0) % MCHC 30.8 L (31.0-37.0) g/dL RDW 16.4 H (11.5-15.5) % Lymphocytes # (Manual) 0.87 L (1.0-4.8) k/uL Nucleated RBCs 1 H (0-0) /100 WBC ABG pH 7.52 H (7.35-7.45) ABG pCO2 34 L (35-45) mmHg ABG HCO3 27 H (21-25) mmol/L ABG Total CO2 28 H (19-24) mmol/L ABG O2 Saturation 98.0 H (94-97) % Sodium 136 L (137-145) mmol/L Potassium 3.2 L (3.5-5.1) mmol/L BUN 21 H (7-17) mg/dL Glucose 149 H (74-99) mg/dL POC Glucose (mg/dL) (75-99) mg/dL AST 56 H (14-36) U/L ALT 102 H (4-34) U/L Alkaline Phosphatase 171 H (38-126) U/L Lactate Dehydrogenase 1060 H (313-618) U/L Total Protein 5.3 L (6.3-8.2) g/dL Albumin 2.8 L (3.5-5.0) g/dL 12/26/19 Range/Units 05:51 RBC (3.80-5.40) m/uL Hgb (11.4-16.0) gm/dL Hct (34.0-46.0) % MCHC (31.0-37.0) g/dL RDW (11.5-15.5) % Lymphocytes # (Manual) (1.0-4.8) k/uL Nucleated RBCs (0-0) /100 WBC ABG pH (7.35-7.45) ABG pCO2 (35-45) mmHg ABG HCO3 (21-25) mmol/L ABG Total CO2 (19-24) mmol/L ABG O2 Saturation (94-97) % Sodium (137-145) mmol/L Potassium (3.5-5.1) mmol/L BUN (7-17) mg/dL Glucose (74-99) mg/dL POC Glucose (mg/dL) 145 H (75-99) mg/dL AST (14-36) U/L ALT (4-34) U/L Alkaline Phosphatase (38-126) U/L Lactate Dehydrogenase (313-618) U/L Total Protein (6.3-8.2) g/dL Albumin (3.5-5.0) g/dL Microbiology - Last 24 Hours (Table) 12/22/19 23:45 Blood Culture - Preliminary Blood No Growth after 72 hours 12/21/19 17:05 Catheter Tip Culture - Final Catheter Tip Staphylococcus epidermidis Staphylococcus haemolyticus Assessment and Plan Plan: 1 Acute hypoxic and hypercapnic respiratory failure secondary to COVID 19 related pneumonia, patient was intubated on 12/13/2019. She's been placed in the prone position approximate 16 hours per day. ration has developed ARDS with diffuse but the pulmonary infiltrates. The patient remains sedated. The patient remains on a mechanical ventilator. Prone positioning is being utilized to improve her oxygenation episodically. On today's evaluation of 12/26/2019, the patient is supine body position. I noted that the chest x-ray findings are essentially unchanged. I noted the patient was in a higher dose of PEEP. I was able to drop the PEEP down to 6 this morning and FiO2 of 50%. I'm also going to put on IV Solu Medrol discontinued the hydrocortisone as the hydrocortisone is no effect pneumonia/acute lung injury picture and has no effect on her myasthenia gravis which may ultimately become an issue down the road. 2 possible ARDS secondary to Covid 19 pneumonia 3 obesity with a BMI 51.9 4 History of myasthenia gravis, status post IVIG treatments, maintained on prednisone outpatient basis currently on hydrocortisone 5 Acute elevation of inflammatory markers including lactate dehydrogenase, C- reactive protein related to Covid 19 infection, numbers are gradually improving including the d-dimer. The d-dimer still elevated and LDH and C-reactive prote in is improving. 6 Elevated d-dimer related to acute Covid 19 infection, and patient is covered with therapeutic doses of Lovenox, d-dimer levels of improved 7 Diabetes mellitus type 2, poorly controlled, currently on insulin drip for blood sugar control 8 Morbid obesity 9 GERD/reflux 10 Hypertension 11 Former smoker 12 History of anxiety 13 acute kidney injury in the creatinine is up from as high as 1.7 and his currently normalized 14 Chronic CHF with diastolic dysfunction Plan Continue vent support Drop the PEEP down to 6 and gradually increase the FiO2 as needed if the patient desaturates Stopped IV hydrocortisone and the patient with Solu-Medrol 40 mg every 6 hours for the reasons mentioned above Keep sedation for now with a combination of propofol and fentanyl Continue daily Lasix doses and the patient is a negative fluid balance We will consider dropping the Lovenox dose of the patient's d-dimer is improved and will switch her to a prophylactic dose once the d-dimer normalizes Utilized norepinephrine infusion for blood pressure support if needed We'll continue to follow. Condition is critical. This evaluation was done in more than 30 minutes. Time with Patient: Greater than 30
[2019-12-26] MEDS ORDERED: fentaNYL (PF) 2,500 MCG in SODIUM CHLORIDE 0.9% 200 ML IV SCH (10:30)
[2019-12-26 10:56] LABS: Ferritin 57.3 ng/mL (10.0-291.0)
[2019-12-26] MEDS: methylPREDNISolone SOD SUCCI 40 MG/ML 1 ML VIAL IV SCH ×3 (11:15→23:42)
[2019-12-26 11:26] LABS: Glucose,Whole Blood 147 mg/dL (75-99)
[2019-12-26 12:21] LABS: Glucose,Whole Blood 203 mg/dL (75-99)
[2019-12-26 13:01] LABS: Glucose,Whole Blood 200 mg/dL (75-99)
[2019-12-26 14:17] LABS: Glucose,Whole Blood 202 mg/dL (75-99)
[2019-12-26 15:06] LABS: Glucose,Whole Blood 205 mg/dL (75-99)
[2019-12-26] MEDS ORDERED: methylPREDNISolone SOD SUCCI 40 MG/ML 1 ML VIAL IV SCH (16:00)
[2019-12-26 16:03] LABS: Glucose,Whole Blood 203 mg/dL (75-99)
--- NOTE | 2019-12-26 16:08 | XR ---
EXAMINATION TYPE: XR chest 1V portable DATE OF EXAM: 12/26/2019 COMPARISON: 12/26/2019 INDICATION: Nasogastric tube placement TECHNIQUE: Single frontal view of the chest is obtained. Patient is rotated to the right FINDINGS: The heart size is somewhat prominent. The pulmonary vasculature is prominent. There is diffuse increased opacification to the bilateral lung solitario. There is an endotracheal tube tip 5.3 cm above the baylee. There is a left central venous catheter wi th the tip in the region of the superior vena cava. No pneumothorax is evident. There is placement of a nasogastric tube which transverses the thorax. The tip is out of the field-of -view within the abdomen. IMPRESSION: 1. Patchy bilateral infiltrates stable from the a.m. exam. 2. Lines and catheters discussed above. Nasogastric tube tip is out of the vhrin-sk-iltx but within t he abdomen.
[2019-12-26] MEDS ORDERED: POTASSIUM CHLORIDE ER 20 MEQ TAB.ER PO ONE (17:00)
[2019-12-26 17:18] LABS: Glucose,Whole Blood 198 mg/dL (75-99)
--- NOTE | 2019-12-26 17:34 | PN ---
PROGRESS NOTE DATE OF SERVICE: 12/26/2019 REASON FOR FOLLOWUP: 1. Pneumonia. 2. Positive catheter-tip cultures. INTERVAL HISTORY: The patient is currently afebrile. The patient is hemodynamically stable, not on any pressor support. FiO2 is currently 50%. No significant purulent secretion through the ET or any worsening diarrhea has been reported by the nursing staff. PHYSICAL EXAMINATION: On examination, her blood pressure is 103/40 with a pulse of 92, temperature 99.4. She is 90% on 50% FiO2. General description is a middle-aged female intubated on the vent. RESPIRATORY SYSTEM: Unlabored breathing. Clear to auscultation anteriorly. HEART: S1, S2. Regular rate and rhythm. ABDOMEN: Soft. No distention. LABS: Hemoglobin is 9, white count 5.1. BUN of 21, creatinine 0.77. Blood culture has been negative. DIAGNOSTIC IMPRESSION AND PLAN: 1. Patient with acute respiratory failure which is likely multifactorial in this patient who did have a component of acute COVID-19 pneumonia, for which the patient has completed her Plaquenil therapy. Currently covered with zinc, Solu-Medrol; to continue and will monitor her clinical course closely. 2. Patient with a positive catheter-tip culture with Staphylococcus epidermidis, though the blood culture is negative. No need for vancomycin. 3. Diarrhea, possible antibiotic-associated. Stool for C difficile is negative. Responding to [facility]; to continue. MMJAIRL / PATRICEN: [id number] /
[2019-12-26] MEDS ORDERED: POTASSIUM BICARBONATE/CIT AC 20 MEQ TABLET.EFF NG-TUBE SCH (18:00)
[2019-12-26 18:01] LABS: Glucose,Whole Blood 194 mg/dL (75-99)
[2019-12-26] MEDS: SODIUM CHLORIDE 0.9% 1,000 ML IV SCH (18:34)
[2019-12-26 19:12] LABS: Glucose,Whole Blood 208 mg/dL (75-99)
[2019-12-26 20:25] LABS: Glucose,Whole Blood 190 mg/dL (75-99)
[2019-12-26] MEDS ORDERED: ENOXAPARIN 120 MG/0.8 ML SYRINGE SQ SCH (21:00)
[2019-12-26 21:58] LABS: Glucose,Whole Blood 193 mg/dL (75-99)
[2019-12-26] MEDS: INSULIN REGULAR 100 UNIT in SODIUM CHLORIDE 0.9% 100 ML IV SCH (22:38)
--- NOTE | 2019-12-26 23:34 | PN ---
PROGRESS NOTE A 59-year-old white female followup, still remains on the ventilator, prone more than supine. FiO2 is 40% to 50%, PEEP of 12. Stress dose hydrocortisone, high-dose Lovenox, received Lasix 40 IV q.24 hours. Tolerating oral feedings. D-dimer is 1.08. LDH is improving. CRP is improving. Chest x-ray bilateral infiltrates without any improvement. Hemoglobin was 9, white count 5.1, sodium 136, potassium 3.2. ABGs reviewed. ASSESSMENT: 1. Acute hypoxemic hypercapnic respiratory failure secondary to COVID-19 pneumonia. 2. ARDS with pulmonary infiltrates PEEP is down to 6. FiO2 is 50, IV Solu-Medrol. ARDS secondary to COVID-19 pneumonia. 3. Obesity. 4. Myasthenia gravis. 5. Elevated D-dimer, Lovenox. 6. Diabetes mellitus type 2. 7. Gastroesophageal reflux disease. 8. Hypertension. 9. Smoker, nicotine. 10.Acute kidney injury. 11.Congestive heart failure. Continue vent support, dropped the PEEP, increase FiO2, IV Solu-Medrol, Lovenox. Prognosis is guarded. ICU TIME: 20 minutes. MMODL / IJN: [id number] /
[2019-12-27 00:05] LABS: Glucose,Whole Blood 169 mg/dL (75-99)
[2019-12-27 02:35] LABS: Glucose,Whole Blood 204 mg/dL (75-99)
[2019-12-27] MEDS: PROPOFOL 1,000 MG in EMPTY BAG 1 BAG IV SCH ×6 (03:42→23:40)
[2019-12-27 04:28] LABS: Glucose,Whole Blood 199 mg/dL (75-99)
[2019-12-27] MEDS: METOCLOPRAMIDE 5 MG/ML 2 ML VIAL IVP SCH ×3 (05:26→18:34)
[2019-12-27] MEDS: methylPREDNISolone SOD SUCCI 40 MG/ML 1 ML VIAL IV SCH ×3 (05:26→18:34)
[2019-12-27 05:27] LABS: ABG HCO3 29 mmol/L (21-25); ABG Oxygen Saturation 95.3 % (94-97); ABG PCO2 42 mmHg (35-45); ABG PH 7.45 (7.35-7.45); ABG PO2 74 mmHg (83-108); ABG TCO2 30 mmol/L (19-24)
[2019-12-27 06:17] LABS: Allen Test Performed? no
[2019-12-27 06:23] LABS: Glucose,Whole Blood 191 mg/dL (75-99)
[2019-12-27] MEDS: POTASSIUM BICARBONATE/CIT AC 20 MEQ TABLET.EFF NG-TUBE SCH ×2 (06:46→07:03)
[2019-12-27 07:49] LABS: Glucose,Whole Blood 218 mg/dL (75-99)
--- NOTE | 2019-12-27 07:55 | XR ---
EXAMINATION TYPE: XR chest 1V portable DATE OF EXAM: 12/27/2019 COMPARISON: 12/26/2019 INDICATION: Short of breath TECHNIQUE: Single frontal view of the chest is obtained. FINDINGS: The heart size is normal. The pulmonary vasculature is prominent. There is diffuse increased lung markings bilaterally. Findings are worsening over the interval. Endotracheal tube tip is above the baylee. Nasogastric tube transverses the thorax. Left central veno us catheter tip is in the region of the distal superior vena cava. These are unchanged. IMPRESSION: 1. Worsening bilateral lung opacities. Correlate for atypical pneumonia. 2. Lines and catheters discussed above.
[2019-12-27 08:20] LABS: ALT 67 U/L (4-34); AST 34 U/L (14-36); African American GFR (CKD) >90 (>60 ml/min/1.73 sqM); Albumin 2.6 g/dL (3.5-5.0); Alkaline Phosphatase 137 U/L (38-126); Anion Gap 2 mmol/L; Blood Urea Nitrogen 25 mg/dL (7-17); Calcium 8.7 mg/dL (8.4-10.2); Carbon Dioxide 29 mmol/L (22-30); Chloride 103 mmol/L (98-107); Creatine Kinase 64 U/L (30-135); Glucose 202 mg/dL (74-99); LDH 987 U/L (313-618); Non-African American GFR(CKD) 87 (>60 ml/min/1.73 sqM); Potassium 4.7 mmol/L (3.5-5.1); Sodium 134 mmol/L (137-145); Total Bilirubin 0.3 mg/dL (0.2-1.3)
[2019-12-27 08:28] LABS: Anisocytosis Slight; Basophils # (A) 0.1 k/uL (0-0.2); Basophils % (A) 1 %; Eosinophils # (A) 0.1 k/uL (0-0.7); Eosinophils % (A) 1 %; HCT 26.4 % (34.0-46.0); HGB 8.3 gm/dL (11.4-16.0); Hypochromasia Moderate; Lymphocytes % (A) 16 %; MCH 26.4 pg (25.0-35.0); MCHC 31.3 g/dL (31.0-37.0); MCV 84.4 fL (80.0-100.0); Mean Platelet Volume 8.5; Monocytes # (A) 0.5 k/uL (0-1.0); Monocytes % (A) 8 %; Neutrophils # (A) 4.3 k/uL (1.3-7.7); Neutrophils % (A) 70 %; Platelet Count 304 k/uL (150-450); Poikilocytosis Slight; RBC 3.13 m/uL (3.80-5.40); RDW 16.9 % (11.5-15.5); WBC 6.1 k/uL (3.8-10.6)
[2019-12-27] MEDS ORDERED: ENOXAPARIN 40 MG/0.4 ML SYRINGE SQ SCH (09:00)
[2019-12-27 09:09] LABS: Polychromasia Present
[2019-12-27 09:17] LABS: C Reactive Protein <5.0 mg/L (<10.0)
[2019-12-27] MEDS: levETIRAcetam ORAL SOLN 500 MG/5 ML CUP PO SCH ×2 (09:49→23:39)
[2019-12-27] MEDS: FUROSEMIDE 10 MG/ML 4 ML VIAL IV SCH (09:49)
[2019-12-27] MEDS: CHOLESTYRAMINE (WITH SUGAR) 4 GM PACKET PO SCH ×2 (09:50→18:34)
[2019-12-27] MEDS: PANTOPRAZOLE 40 MG/10 ML VIAL IVP SCH (09:50)
[2019-12-27] MEDS: CHLORHEXIDINE GLUCONATE 15 ML CUP MUCOUS MEM SCH ×2 (09:50→22:46)
[2019-12-27 09:53] VITALS: BMI 53.5
[2019-12-27 10:07] LABS: Glucose,Whole Blood 221 mg/dL (75-99)
--- NOTE | 2019-12-27 11:22 | P.GSCN ---
<Shauna Freeman Julia - Last Filed: 12/27/19 15:00> History of Present Illness Consult date: 12/27/19 Reason for Consult: trach and peg Requesting physician: Arnulfo Boyd History of present illness: CHIEF COMPLAINT: Trach and PEG HISTORY OF PRESENT ILLNESS: 59-year-old female who is currently admitted to the intensive care unit. Patient is positive for Covid 19 infection and has been intubated on mechanical ventilation since 12/13/2019. General surgery was consulted for trach and peg placement. PAST MEDICAL HISTORY: See list. PAST SURGICAL HISTORY: See list. SOCIAL HISTORY: No illicit drug use. REVIEW OF SYSTEMS: Unable to obtain secondary to mechanical ventilation and sedation PHYSICAL EXAM: VITAL SIGNS: Reviewed. GENERAL: Well-developed in no acute distress-sedated on mechanical ventilation. HEENT: ET tube noted. Moist buccal mucosa. Head is atraumatic, normocephalic. ABDOMEN: Soft. Nondistended. Nontender. NEUROLOGIC: Sedated on mechanical ventilation LABORATORY DATA: WBC 6.1. Hemoglobin 8.3. Platelet count 304. IMAGING: Chest x-ray: Worsening bilateral lung opacities ASSESSMENT: 1. Acute hypoxic respiratory failure requiring mechanical ventilation secondary to Covid 19 infection PLAN: Patient with prolonged mechanical ventilation. She will require trach/peg in the near future. However, will repeat Covid19 testing before proceeding with trach/peg. Continue ventilator management per Dr. Boyd. Continue tube feedings as tolerated. Nurse practitioner note has been reviewed by physician. Signing provider agrees with the documented findings, assessment, and plan of care. Past Medical History Past Medical History: Asthma, COPD, Diabetes Mellitus, GERD/Reflux, Hypertension, Neurologic Disorder, Osteoarthritis (OA), Renal Disease Additional Past Medical History / Comment(s): Morbid obesity with a BMI of 42.9, gout, hypertension, diabetes mellitus, myasthenia gravis, herniated discs History of Any Multi-Drug Resistant Organisms: MRSA Year Discovered:: 2013 MDRO Source:: eye Past Surgical History: Adenoidectomy, Section, Cholecystectomy, Heart Catheterization, Hysterectomy, Tonsillectomy Additional Past Surgical History / Comment(s): laser eye sx for glaucoma. at times gets dizzy when up, small bowel obstruction and lysis of adhesions in January 2019 Past Anesthesia/Blood Transfusion Reactions: Motion Sickness, Postoperative Nausea & Vomiting (PONV) Additional Past Anesthesia/Blood Transfusion Reaction / Comm: clausterphobia Past Psychological History: Anxiety Smoking Status: Former smoker Past Alcohol Use History: None Reported Past Drug Use History: None Reported - Past Family History Father Family Medical History: Cancer, COPD Additional Family Medical History / Comment(s): ashd, amputations d/t vascular dz, skin cancer, gout, Mother Family Medical History: Asthma, Chest Pain / Angina, Congestive Heart Failure (CHF), Dementia, Diabetes Mellitus, Hypertension, Osteoarthritis (OA) Additional Family Medical History / Comment(s): glaucoma,gout, neuropathy Medications and Allergies Home Medications Medication Instructions Recorded Confirmed Type Aspirin 81 mg PO DAILY 09/28/15 12/14/19 History Insulin Glargine [Lantus] 50 unit SQ BID 09/28/15 12/12/19 History Omeprazole [PriLOSEC] 20 mg PO AC-BID 09/28/15 12/12/19 History Topiramate [Topamax] 50 mg PO BID 09/28/15 12/12/19 History Amitriptyline HCl [Elavil] 10 mg PO HS 10/03/18 12/12/19 History Ergocalciferol (Vitamin D2) 50,000 unit PO WE 05/12/19 12/12/19 History [Drisdol] INSULIN ASPART (NovoLOG) [NovoLOG 50 unit SQ ACHS 05/12/19 12/12/19 History (formulary)] Potassium Chloride ER [K-Dur 20] 20 meq PO DAILY 05/12/19 12/12/19 History Lisinopril [Zestril] 10 mg PO DAILY tab 05/21/19 12/12/19 Rx Albuterol Inhaler [Ventolin Hfa 1 puff INHALATION RT-Q4H PRN 12/12/19 12/12/19 History Inhaler] Carbidopa-Levodopa 10-100 mg 1 tab PO BID 12/12/19 12/12/19 History [Sinemet 10-100] Diltiazem HCl [Cardizem] 120 mg PO TID 12/12/19 12/12/19 History Furosemide [Lasix] 20 mg PO DAILY 12/12/19 12/14/19 History predniSONE 15 mg PO BID 12/12/19 12/12/19 History Butalb/APAP/Caff 50-325-40Mg 1 tab PO Q8H PRN 12/14/19 12/14/19 History [Fioricet 41-643-60] Allergies Allergy/AdvReac Type Severity Reaction Status Date / Time aspartame Allergy Unknown Verified 05/12/19 17:42 [From Nutrasweet Aspartame] ciprofloxacin Allergy Unknown Verified 05/12/19 17:42 Penicillins Allergy Unknown Verified 05/12/19 17:42 Sulfa (Sulfonamide Allergy Unknown Verified 05/12/19 17:42 Antibiotics) levofloxacin [From Levaquin] AdvReac Severe Unknown Verified 05/12/19 17:42 Surgical - Exam Vital Signs Temp Pulse Resp BP Pulse Ox 103 F H 141 H 22 109/66 99 12/12/19 10:49 12/12/19 10:49 12/12/19 10:49 12/12/19 10:49 12/12/19 10:49 Results - Labs 12/27/19 07:40 12/27/19 07:40 Abnormal Lab Results - Last 24 Hours (Table) 12/26/19 12/26/19 12/26/19 Range/Units 11:24 12:20 13:00 RBC (3.80-5.40) m/uL Hgb (11.4-16.0) gm/dL Hct (34.0-46.0) % RDW (11.5-15.5) % D-Dimer (<0.60) mg/L FEU ABG pO2 (83-108) mmHg ABG HCO3 (21-25) mmol/L ABG Total CO2 (19-24) mmol/L Sodium (137-145) mmol/L BUN (7-17) mg/dL Glucose (74-99) mg/dL POC Glucose (mg/dL) 147 H 203 H 200 H (75-99) mg/dL ALT (4-34) U/L Alkaline Phosphatase (38-126) U/L Lactate Dehydrogenase (313-618) U/L Total Protein (6.3-8.2) g/dL Albumin (3.5-5.0) g/dL 12/26/19 12/26/19 12/26/19 Range/Units 14:15 15:04 16:02 RBC (3.80-5.40) m/uL Hgb (11.4-16.0) gm/dL Hct (34.0-46.0) % RDW (11.5-15.5) % D-Dimer (<0.60) mg/L FEU ABG pO2 (83-108) mmHg ABG HCO3 (21-25) mmol/L ABG Total CO2 (19-24) mmol/L Sodium (137-145) mmol/L BUN (7-17) mg/dL Glucose (74-99) mg/dL POC Glucose (mg/dL) 202 H 205 H 203 H (75-99) mg/dL ALT (4-34) U/L Alkaline Phosphatase (38-126) U/L Lactate Dehydrogenase (313-618) U/L Total Protein (6.3-8.2) g/dL Albumin (3.5-5.0) g/dL 12/26/19 12/26/19 12/26/19 Range/Units 17:17 18:00 19:11 RBC (3.80-5.40) m/uL Hgb (11.4-16.0) gm/dL Hct (34.0-46.0) % RDW (11.5-15.5) % D-Dimer (<0.60) mg/L FEU ABG pO2 (83-108) mmHg ABG HCO3 (21-25) mmol/L ABG Total CO2 (19-24) mmol/L Sodium (137-145) mmol/L BUN (7-17) mg/dL Glucose (74-99) mg/dL POC Glucose (mg/dL) 198 H 194 H 208 H (75-99) mg/dL ALT (4-34) U/L Alkaline Phosphatase (38-126) U/L Lactate Dehydrogenase (313-618) U/L Total Protein (6.3-8.2) g/dL Albumin (3.5-5.0) g/dL 12/26/19 12/26/19 12/27/19 Range/Units 20:23 21:55 00:04 RBC (3.80-5.40) m/uL Hgb (11.4-16.0) gm/dL Hct (34.0-46.0) % RDW (11.5-15.5) % D-Dimer (<0.60) mg/L FEU ABG pO2 (83-108) mmHg ABG HCO3 (21-25) mmol/L ABG Total CO2 (19-24) mmol/L Sodium (137-145) mmol/L BUN (7-17) mg/dL Glucose (74-99) mg/dL POC Glucose (mg/dL) 190 H 193 H 169 H (75-99) mg/dL ALT (4-34) U/L Alkaline Phosphatase (38-126) U/L Lactate Dehydrogenase (313-618) U/L Total Protein (6.3-8.2) g/dL Albumin (3.5-5.0) g/dL 12/27/19 12/27/19 12/27/19 Range/Units 02:33 04:00 04:26 RBC (3.80-5.40) m/uL Hgb (11.4-16.0) gm/dL Hct (34.0-46.0) % RDW (11.5-15.5) % D-Dimer 1.15 H (<0.60) mg/L FEU ABG pO2 (83-108) mmHg ABG HCO3 (21-25) mmol/L ABG Total CO2 (19-24) mmol/L Sodium (137-145) mmol/L BUN (7-17) mg/dL Glucose (74-99) mg/dL POC Glucose (mg/dL) 204 H 199 H (75-99) mg/dL ALT (4-34) U/L Alkaline Phosphatase (38-126) U/L Lactate Dehydrogenase (313-618) U/L Total Protein (6.3-8.2) g/dL Albumin (3.5-5.0) g/dL 12/27/19 12/27/19 12/27/19 Range/Units 05:26 06:22 07:40 RBC 3.13 L (3.80-5.40) m/uL Hgb 8.3 L (11.4-16.0) gm/dL Hct 26.4 L (34.0-46.0) % RDW 16.9 H (11.5-15.5) % D-Dimer (<0.60) mg/L FEU ABG pO2 74 L (83-108) mmHg ABG HCO3 29 H (21-25) mmol/L ABG Total CO2 30 H (19-24) mmol/L Sodium (137-145) mmol/L BUN (7-17) mg/dL Glucose (74-99) mg/dL POC Glucose (mg/dL) 191 H (75-99) mg/dL ALT (4-34) U/L Alkaline Phosphatase (38-126) U/L Lactate Dehydrogenase (313-618) U/L Total Protein (6.3-8.2) g/dL Albumin (3.5-5.0) g/dL 12/27/19 12/27/19 12/27/19 Range/Units 07:40 07:40 07:46 RBC (3.80-5.40) m/uL Hgb (11.4-16.0) gm/dL Hct (34.0-46.0) % RDW (11.5-15.5) % D-Dimer 0.81 H (<0.60) mg/L FEU ABG pO2 (83-108) mmHg ABG HCO3 (21-25) mmol/L ABG Total CO2 (19-24) mmol/L Sodium 134 L (137-145) mmol/L BUN 25 H (7-17) mg/dL Glucose 202 H (74-99) mg/dL POC Glucose (mg/dL) 218 H (75-99) mg/dL ALT 67 H (4-34) U/L Alkaline Phosphatase 137 H (38-126) U/L Lactate Dehydrogenase 987 H (313-618) U/L Total Protein 5.0 L (6.3-8.2) g/dL Albumin 2.6 L (3.5-5.0) g/dL 12/27/19 Range/Units 10:06 RBC (3.80-5.40) m/uL Hgb (11.4-16.0) gm/dL Hct (34.0-46.0) % RDW (11.5-15.5) % D-Dimer (<0.60) mg/L FEU ABG pO2 (83-108) mmHg ABG HCO3 (21-25) mmol/L ABG Total CO2 (19-24) mmol/L Sodium (137-145) mmol/L BUN (7-17) mg/dL Glucose (74-99) mg/dL POC Glucose (mg/dL) 221 H (75-99) mg/dL ALT (4-34) U/L Alkaline Phosphatase (38-126) U/L Lactate Dehydrogenase (313-618) U/L Total Protein (6.3-8.2) g/dL Albumin (3.5-5.0) g/dL Microbiology - Last 24 Hours (Table) 12/22/19 23:45 Blood Culture - Preliminary Blood No Growth after 96 hours Diabetes panel 12/26/19 12/27/19 12/27/19 Range/Units 15:55 04:00 07:40 Sodium 134 L (137-145) mmol/L Potassium 3.7 4.7 (3.5-5.1) mmol/L Chloride 103 (98-107) mmol/L Carbon Dioxide 29 (22-30) mmol/L BUN 25 H (7-17) mg/dL Creatinine 0.76 (0.52-1.04) mg/dL Glucose 202 H (74-99) mg/dL Calcium 8.7 (8.4-10.2) mg/dL AST 34 (14-36) U/L ALT 67 H (4-34) U/L Alkaline Phosphatase 137 H (38-126) U/L Total Protein 5.0 L (6.3-8.2) g/dL Albumin 2.6 L (3.5-5.0) g/dL Calcium panel 12/27/19 12/27/19 Range/Units 04:00 07:40 Calcium 8.7 (8.4-10.2) mg/dL Albumin 2.6 L (3.5-5.0) g/dL Pituitary panel 12/26/19 12/27/19 12/27/19 Range/Units 15:55 04:00 07:40 Sodium 134 L (137-145) mmol/L Potassium 3.7 4.7 (3.5-5.1) mmol/L Chloride 103 (98-107) mmol/L Carbon Dioxide 29 (22-30) mmol/L BUN 25 H (7-17) mg/dL Creatinine 0.76 (0.52-1.04) mg/dL Glucose 202 H (74-99) mg/dL Calcium 8.7 (8.4-10.2) mg/dL Adrenal panel 12/26/19 12/27/19 12/27/19 Range/Units 15:55 04:00 07:40 Sodium 134 L (137-145) mmol/L Potassium 3.7 4.7 (3.5-5.1) mmol/L Chloride 103 (98-107) mmol/L Carbon Dioxide 29 (22-30) mmol/L BUN 25 H (7-17) mg/dL Creatinine 0.76 (0.52-1.04) mg/dL Glucose 202 H (74-99) mg/dL Calcium 8.7 (8.4-10.2) mg/dL Total Bilirubin 0.3 (0.2-1.3) mg/dL AST 34 (14-36) U/L ALT 67 H (4-34) U/L Alkaline Phosphatase 137 H (38-126) U/L Total Protein 5.0 L (6.3-8.2) g/dL Albumin 2.6 L (3.5-5.0) g/dL <Rick Khan - Last Filed: 12/27/19 15:58> History of Present Illness History of present illness: As above. Case discussed with Dr. Boyd and also the patient's son Major. Patient is now 14 days on the ventilator. Has had some increased FiO2 requirements and vasoconstrictor requirements over the last day or so. We'll follow along with you to confirm gradual improvement and remain on surgical standby for tracheostomy and PEG tube placement. Surgical - Exam Vital Signs Temp Pulse Resp BP Pulse Ox 103 F H 141 H 22 109/66 99 12/12/19 10:49 12/12/19 10:49 12/12/19 10:49 12/12/19 10:49 12/12/19 10:49 Results - Labs 12/27/19 07:40 12/27/19 07:40 Abnormal Lab Results - Last 24 Hours (Table) 12/26/19 12/26/19 12/26/19 Range/Units 16:02 17:17 18:00 RBC (3.80-5.40) m/uL Hgb (11.4-16.0) gm/dL Hct (34.0-46.0) % RDW (11.5-15.5) % D-Dimer (<0.60) mg/L FEU ABG pO2 (83-108) mmHg ABG HCO3 (21-25) mmol/L ABG Total CO2 (19-24) mmol/L Sodium (137-145) mmol/L BUN (7-17) mg/dL Glucose (74-99) mg/dL POC Glucose (mg/dL) 203 H 198 H 194 H (75-99) mg/dL ALT (4-34) U/L Alkaline Phosphatase (38-126) U/L Lactate Dehydrogenase (313-618) U/L Total Protein (6.3-8.2) g/dL Albumin (3.5-5.0) g/dL 12/26/19 12/26/19 12/26/19 Range/Units 19:11 20:23 21:55 RBC (3.80-5.40) m/uL Hgb (11.4-16.0) gm/dL Hct (34.0-46.0) % RDW (11.5-15.5) % D-Dimer (<0.60) mg/L FEU ABG pO2 (83-108) mmHg ABG HCO3 (21-25) mmol/L ABG Total CO2 (19-24) mmol/L Sodium (137-145) mmol/L BUN (7-17) mg/dL Glucose (74-99) mg/dL POC Glucose (mg/dL) 208 H 190 H 193 H (75-99) mg/dL ALT (4-34) U/L Alkaline Phosphatase (38-126) U/L Lactate Dehydrogenase (313-618) U/L Total Protein (6.3-8.2) g/dL Albumin (3.5-5.0) g/dL 12/27/19 12/27/19 12/27/19 Range/Units 00:04 02:33 04:00 RBC (3.80-5.40) m/uL Hgb (11.4-16.0) gm/dL Hct (34.0-46.0) % RDW (11.5-15.5) % D-Dimer 1.15 H (<0.60) mg/L FEU ABG pO2 (83-108) mmHg ABG HCO3 (21-25) mmol/L ABG Total CO2 (19-24) mmol/L Sodium (137-145) mmol/L BUN (7-17) mg/dL Glucose (74-99) mg/dL POC Glucose (mg/dL) 169 H 204 H (75-99) mg/dL ALT (4-34) U/L Alkaline Phosphatase (38-126) U/L Lactate Dehydrogenase (313-618) U/L Total Protein (6.3-8.2) g/dL Albumin (3.5-5.0) g/dL 12/27/19 12/27/19 12/27/19 Range/Units 04:26 05:26 06:22 RBC (3.80-5.40) m/uL Hgb (11.4-16.0) gm/dL Hct (34.0-46.0) % RDW (11.5-15.5) % D-Dimer (<0.60) mg/L FEU ABG pO2 74 L (83-108) mmHg ABG HCO3 29 H (21-25) mmol/L ABG Total CO2 30 H (19-24) mmol/L Sodium (137-145) mmol/L BUN (7-17) mg/dL Glucose (74-99) mg/dL POC Glucose (mg/dL) 199 H 191 H (75-99) mg/dL ALT (4-34) U/L Alkaline Phosphatase (38-126) U/L Lactate Dehydrogenase (313-618) U/L Total Protein (6.3-8.2) g/dL Albumin (3.5-5.0) g/dL 12/27/19 12/27/19 12/27/19 Range/Units 07:40 07:40 07:40 RBC 3.13 L (3.80-5.40) m/uL Hgb 8.3 L (11.4-16.0) gm/dL Hct 26.4 L (34.0-46.0) % RDW 16.9 H (11.5-15.5) % D-Dimer 0.81 H (<0.60) mg/L FEU ABG pO2 (83-108) mmHg ABG HCO3 (21-25) mmol/L ABG Total CO2 (19-24) mmol/L Sodium 134 L (137-145) mmol/L BUN 25 H (7-17) mg/dL Glucose 202 H (74-99) mg/dL POC Glucose (mg/dL) (75-99) mg/dL ALT 67 H (4-34) U/L Alkaline Phosphatase 137 H (38-126) U/L Lactate Dehydrogenase 987 H (313-618) U/L Total Protein 5.0 L (6.3-8.2) g/dL Albumin 2.6 L (3.5-5.0) g/dL 12/27/19 12/27/19 12/27/19 Range/Units 07:46 10:06 11:59 RBC (3.80-5.40) m/uL Hgb (11.4-16.0) gm/dL Hct (34.0-46.0) % RDW (11.5-15.5) % D-Dimer (<0.60) mg/L FEU ABG pO2 (83-108) mmHg ABG HCO3 (21-25) mmol/L ABG Total CO2 (19-24) mmol/L Sodium (137-145) mmol/L BUN (7-17) mg/dL Glucose (74-99) mg/dL POC Glucose (mg/dL) 218 H 221 H 228 H (75-99) mg/dL ALT (4-34) U/L Alkaline Phosphatase (38-126) U/L Lactate Dehydrogenase (313-618) U/L Total Protein (6.3-8.2) g/dL Albumin (3.5-5.0) g/dL 12/27/19 12/27/19 12/27/19 Range/Units 12:52 14:02 14:57 RBC (3.80-5.40) m/uL Hgb (11.4-16.0) gm/dL Hct (34.0-46.0) % RDW (11.5-15.5) % D-Dimer (<0.60) mg/L FEU ABG pO2 (83-108) mmHg ABG HCO3 (21-25) mmol/L ABG Total CO2 (19-24) mmol/L Sodium (137-145) mmol/L BUN (7-17) mg/dL Glucose (74-99) mg/dL POC Glucose (mg/dL) 228 H 211 H 203 H (75-99) mg/dL ALT (4-34) U/L Alkaline Phosphatase (38-126) U/L Lactate Dehydrogenase (313-618) U/L Total Protein (6.3-8.2) g/dL Albumin (3.5-5.0) g/dL Microbiology - Last 24 Hours (Table) 12/22/19 23:45 Blood Culture - Preliminary Blood No Growth after 96 hours Diabetes panel 12/26/19 12/27/19 12/27/19 Range/Units 15:55 04:00 07:40 Sodium 134 L (137-145) mmol/L Potassium 3.7 4.7 (3.5-5.1) mmol/L Chloride 103 (98-107) mmol/L Carbon Dioxide 29 (22-30) mmol/L BUN 25 H (7-17) mg/dL Creatinine 0.76 (0.52-1.04) mg/dL Glucose 202 H (74-99) mg/dL Calcium 8.7 (8.4-10.2) mg/dL AST 34 (14-36) U/L ALT 67 H (4-34) U/L Alkaline Phosphatase 137 H (38-126) U/L Total Protein 5.0 L (6.3-8.2) g/dL Albumin 2.6 L (3.5-5.0) g/dL Calcium panel 12/27/19 12/27/19 Range/Units 04:00 07:40 Calcium 8.7 (8.4-10.2) mg/dL Albumin 2.6 L (3.5-5.0) g/dL Pituitary panel 12/26/19 12/27/19 12/27/19 Range/Units 15:55 04:00 07:40 Sodium 134 L (137-145) mmol/L Potassium 3.7 4.7 (3.5-5.1) mmol/L Chloride 103 (98-107) mmol/L Carbon Dioxide 29 (22-30) mmol/L BUN 25 H (7-17) mg/dL Creatinine 0.76 (0.52-1.04) mg/dL Glucose 202 H (74-99) mg/dL Calcium 8.7 (8.4-10.2) mg/dL Adrenal panel 12/26/19 12/27/19 12/27/19 Range/Units 15:55 04:00 07:40 Sodium 134 L (137-145) mmol/L Potassium 3.7 4.7 (3.5-5.1) mmol/L Chloride 103 (98-107) mmol/L Carbon Dioxide 29 (22-30) mmol/L BUN 25 H (7-17) mg/dL Creatinine 0.76 (0.52-1.04) mg/dL Glucose 202 H (74-99) mg/dL Calcium 8.7 (8.4-10.2) mg/dL Total Bilirubin 0.3 (0.2-1.3) mg/dL AST 34 (14-36) U/L ALT 67 H (4-34) U/L Alkaline Phosphatase 137 H (38-126) U/L Total Protein 5.0 L (6.3-8.2) g/dL Albumin 2.6 L (3.5-5.0) g/dL
--- NOTE | 2019-12-27 11:49 | P.PN ---
Subjective Progress Note Date: 12/27/19 This is a 59-year-old female patient, multiple medical problems including history of myasthenia gravis, diabetes mellitus type 2, morbid obesity with a BMI 51.9, hypertension, who came into the emergency department on 12/13/2019 with worsening shortness of breath and fever and cough and the patient was co nfirmed to have 19 infection with pneumonia. The patient had multifocal bilateral pulmonary infiltrates and she was intubated and placed on a mechanical ventilator. She was started on treatment protocol with 19 with Plaquenil. She was given stress dose hydrocortisone as the patient has been chronically maintained on steroids and following that she was brought up to the intensive care units. This patient has subsequently went to ARDS and the patient was placed in the prone positioning for severe hypoxemia and ARDS. Note that the patient has been intubated since 12/13/2019. The patient currently is assist- control mode of ventilation at the rate of 26 with an FiO2 of 40% and a tidal volume of 400 with a PEEP of 15. The patient is sedated with propofol and fentanyl. She is also receiving insulin drip for blood sugar control. She is receiving vital high protein for enteral feeding and nutritional support. She is on IV Lasix 40 mg every 8 hours. She is on hydrocortisone 50 mg every 8 hours. She has completed her Coumadin 19 treatment with Plaquenil. Her chest x-ray is consistent with diffuse bilateral pulmonary infiltrates/ARDS. ET tube is in place. The patient has a left IJ triple-lumen catheter which is also in place. The patient has been receiving prone positioning regarding her pneumonia/ARDS. Along with IV Lasix, the patient has been a negative fluid balance of 1.6 L for yesterday and she is responding nicely to the diuretics. She does have some mild transaminitis. LDH levels have been gradually drifting down and so is the C-reactive protein. Stool for C. diff has been negative. The patient's d-dimer was elevated and the patient was given a therapeutic dose of Lovenox. Subsequently d-dimer levels have dropped down to 1.08. On today's evaluation of 12/26/2019 seeing the patient for a follow-up. The patient remains sedated sedative abdomen mechanical ventilator on propofol for sedation. Ventilator settings remains essentially unchanged. The patient on today's evaluation is on assist control mode at the rate of 26 with a tidal volume of 350 and FiO2 of 50% with a PEEP of 12. The patient is also sedated with propofol at 40 mg per KG per minute. She is also on fentanyl and 1 g per KG per hour. She remains on stress dose hydrocortisone. Normal saline is running at 20 mL an hour. She has cushingoid features in addition to her being a negative fluid balance of 1.6 L as the patient is receiving Lasix 40 mg IV every 24 hours. She is tolerating her enteral feeding for nutritional support. The d-dimer still elevated at 1.08. The liver function tests are still abnormal and the patient has some mild transaminitis. LDH is improving is down to 1060 and the C-reactive protein is down to less than 5. The blood gases from today showed a pH of 7.52 with a pCO2 of 34 and pO2 of 89. The The chest x-ray from today is showing stable bilateral airspace disease persistent without any significant interval change. On 12/27/2019, the patient is being seen for a follow-up in intensive care unit. The patient is a case of Covid 19 pneumonia/ARDS with secondary respiratory failure. This morning, the patient remains sedated with propofol at 50 g per KG per minute. The patient is an assist-control mode of ventilation. She is on a assist control of 20 with a tidal volume of 400 and FiO2 of 75% with a PEEP of 5. The chest x-ray is showing diffuse breath and pulmonary infiltrates consistent with bilateral pneumonia/ARDS. The peak air pressure was quite elevated at 34. I dropped a tidal volume down to 350. The patient remains on IV Solu-Medrol. The patient remains on Lasix once a day and the patient has been negative fluid balance of 1.1 L over the past 24 hours. She is receiving vital high protein for enteral feeding and nutritional support at the rate of 43 mL an hour. She is on insulin drip at 5 units an hour. IV fluids with normal state rate of 20 mL an hour. The blood gases from today shows a pH of 7.45 with a pCO2 of 42 and pO2 of 74. The white cell count is at 6.1. Renal function is stable. No other significant abnormalities of been noted on today's blood work. She has a declining LDH level which is down to 97. The C-reactive protein is less than 5. Objective - Vital Signs Vital signs: Vital Signs Temp 99.5 F 12/27/19 08:00 Pulse 125 H 12/27/19 11:00 Resp 34 H 12/27/19 11:00 BP 102/64 12/27/19 11:00 Pulse Ox 94 L 12/27/19 11:00 Intake & Output 12/26/19 12/27/19 12/27/19 18:59 06:59 18:59 Intake Total 3702.245 7579.816 398.652 Output Total 1100 640 150 Balance 229.882 402.816 248.652 Weight 131.5 kg 132.8 kg 132.8 kg Intake: IV 476 196 92 Potassium Chloride 20 meq 200 In Water For Injection 1 100ml.bag @ 50 mls/hr IVPB Q2H [facility] Rx#: [id number] Pressure Bag 36 36 12 Sodium Chloride 0.9% 1, 240 160 80 000 ml @ 20 mls/hr IV . Q24H [facility] Rx#:[id number] Intake, IV Titration 603.882 464.816 126.652 Amount Insulin Regular 100 unit 17.389 57.637 51.308 In Sodium Chloride 0.9% 100 ml @ Per Protocol IV .Q0M [facility] Rx#:[id number] Norepinephrine 8 mg In 0.664 19.77 Sodium Chloride 0.9% 250 ml @ 0.05 MCG/KG/MIN 12. 461 mls/hr IV .[id number] [facility] Rx#:[id number] Propofol 1,000 mg In 421.350 406.515 55.574 Empty Bag 1 bag @ Titrate IV .Q0M [facility] Rx#: [id number] fentaNYL (PF) 2,500 mcg 165.143 In Sodium Chloride 0.9% 200 ml @ 3 MCG/KG/HR 25. 17 mls/hr IV .[id number] [facility] Rx#:[id number] Tube Feeding 160 292 150 Other 90 90 30 Output: Urine 1100 640 150 Other: Voiding Method Indwelling Catheter Indwelling Catheter # Bowel Movements 2 ABP, PAP, CO, CI - Last Documented Arterial Blood Pressure 118/55 - Exam Physical Exam: Revealed a morbidly obese 59-year-old female on mechanical ventilation, sedated. Alternating supine and prone positioning. This morning the patient is a supine body position. 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 Head: Cushingoid, no neck masses, endotracheal tube and orogastric tube is intact. HEENT: Neck is supple. PERRLA, EOMI, no icterus, no JVD. Central line seems to be intact. Chest: Diminished breath sounds and crackles at the bases. Cardiac Exam: Normal S1 and S2, no S3 gallop, no murmur. Abdomen: Obese, Soft, nontender, no megaly, no rebound, no guarding, normal bowel sounds. Extremities: No clubbing, no edema, no cyanosis. Neurological Exam: Cannot be assessed, patient is sedated and on mechanical ventilation on propofol and fentanyl. Psychiatric: Could not be assessed. Skin: Examination of the skin revealed no evidence of significant rashes, suspicious appearing nevi or other concerning lesions. Musculoskeletal: No deformities. - Labs CBC & Chem 7: 12/27/19 07:40 12/27/19 07:40 Labs: Abnormal Lab Results - Last 24 Hours (Table) 12/26/19 12/26/19 12/26/19 Range/Units 12:20 13:00 14:15 RBC (3.80-5.40) m/uL Hgb (11.4-16.0) gm/dL Hct (34.0-46.0) % RDW (11.5-15.5) % D-Dimer (<0.60) mg/L FEU ABG pO2 (83-108) mmHg ABG HCO3 (21-25) mmol/L ABG Total CO2 (19-24) mmol/L Sodium (137-145) mmol/L BUN (7-17) mg/dL Glucose (74-99) mg/dL POC Glucose (mg/dL) 203 H 200 H 202 H (75-99) mg/dL ALT (4-34) U/L Alkaline Phosphatase (38-126) U/L Lactate Dehydrogenase (313-618) U/L Total Protein (6.3-8.2) g/dL Albumin (3.5-5.0) g/dL 12/26/19 12/26/19 12/26/19 Range/Units 15:04 16:02 17:17 RBC (3.80-5.40) m/uL Hgb (11.4-16.0) gm/dL Hct (34.0-46.0) % RDW (11.5-15.5) % D-Dimer (<0.60) mg/L FEU ABG pO2 (83-108) mmHg ABG HCO3 (21-25) mmol/L ABG Total CO2 (19-24) mmol/L Sodium (137-145) mmol/L BUN (7-17) mg/dL Glucose (74-99) mg/dL POC Glucose (mg/dL) 205 H 203 H 198 H (75-99) mg/dL ALT (4-34) U/L Alkaline Phosphatase (38-126) U/L Lactate Dehydrogenase (313-618) U/L Total Protein (6.3-8.2) g/dL Albumin (3.5-5.0) g/dL 12/26/19 12/26/19 12/26/19 Range/Units 18:00 19:11 20:23 RBC (3.80-5.40) m/uL Hgb (11.4-16.0) gm/dL Hct (34.0-46.0) % RDW (11.5-15.5) % D-Dimer (<0.60) mg/L FEU ABG pO2 (83-108) mmHg ABG HCO3 (21-25) mmol/L ABG Total CO2 (19-24) mmol/L Sodium (137-145) mmol/L BUN (7-17) mg/dL Glucose (74-99) mg/dL POC Glucose (mg/dL) 194 H 208 H 190 H (75-99) mg/dL ALT (4-34) U/L Alkaline Phosphatase (38-126) U/L Lactate Dehydrogenase (313-618) U/L Total Protein (6.3-8.2) g/dL Albumin (3.5-5.0) g/dL 12/26/19 12/27/19 12/27/19 Range/Units 21:55 00:04 02:33 RBC (3.80-5.40) m/uL Hgb (11.4-16.0) gm/dL Hct (34.0-46.0) % RDW (11.5-15.5) % D-Dimer (<0.60) mg/L FEU ABG pO2 (83-108) mmHg ABG HCO3 (21-25) mmol/L ABG Total CO2 (19-24) mmol/L Sodium (137-145) mmol/L BUN (7-17) mg/dL Glucose (74-99) mg/dL POC Glucose (mg/dL) 193 H 169 H 204 H (75-99) mg/dL ALT (4-34) U/L Alkaline Phosphatase (38-126) U/L Lactate Dehydrogenase (313-618) U/L Total Protein (6.3-8.2) g/dL Albumin (3.5-5.0) g/dL 12/27/19 12/27/19 12/27/19 Range/Units 04:00 04:26 05:26 RBC (3.80-5.40) m/uL Hgb (11.4-16.0) gm/dL Hct (34.0-46.0) % RDW (11.5-15.5) % D-Dimer 1.15 H (<0.60) mg/L FEU ABG pO2 74 L (83-108) mmHg ABG HCO3 29 H (21-25) mmol/L ABG Total CO2 30 H (19-24) mmol/L Sodium (137-145) mmol/L BUN (7-17) mg/dL Glucose (74-99) mg/dL POC Glucose (mg/dL) 199 H (75-99) mg/dL ALT (4-34) U/L Alkaline Phosphatase (38-126) U/L Lactate Dehydrogenase (313-618) U/L Total Protein (6.3-8.2) g/dL Albumin (3.5-5.0) g/dL 12/27/19 12/27/19 12/27/19 Range/Units 06:22 07:40 07:40 RBC 3.13 L (3.80-5.40) m/uL Hgb 8.3 L (11.4-16.0) gm/dL Hct 26.4 L (34.0-46.0) % RDW 16.9 H (11.5-15.5) % D-Dimer 0.81 H (<0.60) mg/L FEU ABG pO2 (83-108) mmHg ABG HCO3 (21-25) mmol/L ABG Total CO2 (19-24) mmol/L Sodium (137-145) mmol/L BUN (7-17) mg/dL Glucose (74-99) mg/dL POC Glucose (mg/dL) 191 H (75-99) mg/dL ALT (4-34) U/L Alkaline Phosphatase (38-126) U/L Lactate Dehydrogenase (313-618) U/L Total Protein (6.3-8.2) g/dL Albumin (3.5-5.0) g/dL 12/27/19 12/27/19 12/27/19 Range/Units 07:40 07:46 10:06 RBC (3.80-5.40) m/uL Hgb (11.4-16.0) gm/dL Hct (34.0-46.0) % RDW (11.5-15.5) % D-Dimer (<0.60) mg/L FEU ABG pO2 (83-108) mmHg ABG HCO3 (21-25) mmol/L ABG Total CO2 (19-24) mmol/L Sodium 134 L (137-145) mmol/L BUN 25 H (7-17) mg/dL Glucose 202 H (74-99) mg/dL POC Glucose (mg/dL) 218 H 221 H (75-99) mg/dL ALT 67 H (4-34) U/L Alkaline Phosphatase 137 H (38-126) U/L Lactate Dehydrogenase 987 H (313-618) U/L Total Protein 5.0 L (6.3-8.2) g/dL Albumin 2.6 L (3.5-5.0) g/dL Microbiology - Last 24 Hours (Table) 12/22/19 23:45 Blood Culture - Preliminary Blood No Growth after 96 hours Assessment and Plan Plan: 1 Acute hypoxic and hypercapnic respiratory failure secondary to COVID 19 related pneumonia, patient was intubated on 12/13/2019. She's been placed in the prone position approximate 16 hours per day. ration has developed ARDS with diffuse but the pulmonary infiltrates. The patient remains sedated. The patient remains on a mechanical ventilator. Prone positioning is being utilized to improve her oxygenation episodically. On 12/27/2019, the patient continues to have diffuse extensive [place] pulmonate infiltrates consistent with pneumonia/ARDS. Peak static pressures are quite elevated. Nevertheless, the patient is morbidly obese and this can affect the accurate measurements of the airway pressures. The patient will be dropped down to a tidal volume of 350. She is morbidly obese. She has cushingoid features. She has a very thick neck and she has also myasthenia gravis. I do not think she is going to wean adequately at any point in time. She is going to be considered for a tracheostomy tube/PEG tube insertion. 2 possible ARDS secondary to Covid 19 pneumonia 3 obesity with a BMI 51.9 4 History of myasthenia gravis, status post IVIG treatments, maintained on prednisone outpatient basis currently on hydrocortisone 5 Acute elevation of inflammatory markers including lactate dehydrogenase, C- reactive protein related to Covid 19 infection, numbers are gradually improving including the d-dimer. The d-dimer still elevated and LDH and C-reactive protein is improving. 6 Elevated d-dimer related to acute Covid 19 infection, and patient is covered with therapeutic doses of Lovenox, d-dimer levels of improved 7 Diabetes mellitus type 2, poorly controlled, currently on insulin drip for blood sugar control 8 Morbid obesity 9 GERD/reflux 10 Hypertension 11 Former smoker 12 History of anxiety 13 acute kidney injury in the creatinine is up from as high as 1.7 and his currently normalized 14 Chronic CHF with diastolic dysfunction Plan Continue vent support Drop the tidal volume down to 350 and keep the FiO2 at 75% Keep the sedation with a combination of propofol and fentanyl Continue daily Lasix doses and the patient is a negative fluid balance Utilized norepinephrine infusion for blood pressure support if needed and the patient has been off norepinephrine infusion Enteral feeding for nutritional support General surgery consultation for a tracheostomy tube and PEG tube insertion We'll continue to follow. Condition is critical. This evaluation was done in more than 30 minutes. Time with Patient: Greater than 30
[2019-12-27 12:00] LABS: Glucose,Whole Blood 228 mg/dL (75-99)
[2019-12-27] MEDS: INSULIN REGULAR 100 UNIT in SODIUM CHLORIDE 0.9% 100 ML IV SCH ×2 (12:30→21:39)
[2019-12-27 12:53] LABS: Glucose,Whole Blood 228 mg/dL (75-99)
[2019-12-27 14:03] LABS: Glucose,Whole Blood 211 mg/dL (75-99)
[2019-12-27 14:58] LABS: Glucose,Whole Blood 203 mg/dL (75-99)
--- NOTE | 2019-12-27 15:50 | PN ---
PROGRESS NOTE DATE OF SERVICE: 12/27/2019 REASON FOR FOLLOWUP: Pneumonia, diarrhea and positive catheter culture. INTERVAL HISTORY: The patient is currently afebrile. The patient remains to be intubated on the vent. FiO2 is currently up to 75%, no significant purulent secretion through the ET or any diarrhea reported. PHYSICAL EXAMINATION: Blood pressure 124/55 with a pulse of 121, temperature of 98, she is 95% on 25% FiO2. General description is a middle-aged female, intubated on the vent. RESPIRATORY SYSTEM: Unlabored breathing with no wheeze. HEART: S1, S2. Regular rate and rhythm. ABDOMEN: Soft, no tenderness. LABS: Hemoglobin is 8.8, white count of 6.1. BUN of 25, creatinine 0.76. Electrolytes have been normal. DIAGNOSTIC IMPRESSION/PLAN: 1. Patient with acute respiratory failure which is multifactorial in this patient who did have a component of acute COVID-19 pneumonia. The patient has completed her Plaquenil therapy, currently on Solu-Medrol with worsening of the finding on the x- ray. Sputum culture will be requested. Antibiotics started if needed. 2. Patient positive catheter culture with Staph epi likely contamination as the blood cultures have been negative. 3. Diarrhea, antibiotic therapy has slightly slowed down. Continue with Questran: Prognosis remains to be guarded. MMODL / IJN: [id number] /
[2019-12-27 15:59] LABS: Glucose,Whole Blood 202 mg/dL (75-99)
--- NOTE | 2019-12-27 16:32 | P.PN ---
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 Influenza screening negative. Tested positive for coronavirus. LDH trending up currently 1285. Maintained on Rocephin, Plaquenil and Zithromax. D-dimer elevated at 0.63. Overnight patient was maintained on a nonrebreather mask. Chest x-ray this morning reporting worsening persistent multifocal patchy and confluent airspace disease, greatest in the right upper and left lower lobes. Dyspnea worsened and patient was intubated this morning. Currentlly on FiO2 of 90%/+16 of PEEP. Maintained on diprovan, fentanyl drip, Levophed. Evaluated by neurology with recommendations noted and appreciated, no IVIG at this time as patient's myasthenia gravis felt to be in remission. Continues on Cortef. Blood sugars elevated, on insulin drip. ABGs noted, acidotic with pH of 7.28, pCO2 47 pO2 87, bicarb 22, total CO2 24, O2 sat 96.9, base excess -4.4 on 100% FiO2. Mild improvement in renal function -Creatinine down to 1.2. 12/14/2019 remains vent dependent. This morning patient required FiO2 90% and PEEP of 16, further weaned to 70%. Received Actemra. FiO2 further weaned to 60%. Chest x-ray reporting diffuse interstitial infiltrates , pleural effusion unchanged, received a dose of Lasix IV push. ABGs noted. Continues on diprovan, fentanyl and Levophed. Renal function worsening, creatinine up to 1.72. Blood sugars currently better controlled, on insulin drip. LDH up to 5. Ferritin level up to 285.9. 12/15/2019 maintained on Rocephin, Zithromax, Plaquenil , IV push I Cortef. FiO2 down to 65%, PEEP remains at 16. ABGs noted. Chest x-ray reporting stable to worsening bilateral lung infiltrates. Scheduled for another dose of Actemra. Maintained on diprovan, fentanyl, insulin drips in addition to gentle IV fluid hydration. C-reactive protein improved ,157.8. Creatinine kinase up to 1001. LDH better, 1749. LFTs elevated, holding. Renal function minimally worsened, BUN up to 37, creatinine up to 1.7. Afebrile, normal WBC. 12/16/2019 S/P Actemra x 2 doses.Remains vent dependent, FiO2 80%/+10 of PEEP. ABGs noted. Chest x-ray reporting no significant change-improved as per wildland firefighter. Remains off of pressors. Continues on diprovan, fentanyl and insu hank drips. C-reactive protein, LDH, ferritin elevated, but improving. Renal function improving, creatinine down to 1.48. Afebrile. 12/19/2019 S/P Actemra X 2.remains vent dependent with FiO2 of 50% while in prone position; requires 80% once flipped to supine position, PEEP maintained at 18. Continues on insulin, diprovan and fentanyl drips. Gentle IV fluid hydration. ABGs noted. LDH, C-reactive protein, renal function improving. D- dimer up to 4.36. Lovenox dose increased. Continues on Rocephin, Zithromax, Solu-Cortef. Afebrile currently, T-max 99.2. Sputum culture pending Tolerating tube feeds of vital H&P at goal with minimal to no residuals. 12/20/2019 remains vent dependent, currently 60% FiO2 supine with FiO2 increased to +22. ABGs noted.chest x-ray reporting no significant interval change. Maintained on diprovan, fentanyl, Rocephin, Solu-Cortef, Lasix. T-max 99.4, WBC 5.3. Preliminary Sputum culture reporting no growth after 24 hours. Blood cultures/urine culture reporting no growth. LDH 1835, C-reactive protein and Ferritin WNL. creatinine kinase down to 321. Anticoagulated on Lovenox. Telemetry sinus rhythm. 12/27/2019 remains vent dependent, FiO2 increased to 75% with PEEP down to +5. No further proning. Surgery consulted regarding trach and PEG. Sedation holiday attempted times approximate 45 minutes, patient became tachypneic, tachycardic. Maintained on fentanyl, diprovan and insulin drips. Requiring small dose of Levophed as well. Diuresing well on Lasix IV push with 24-hour I&O reflecting a negative fluid balance. Chest x-ray reporting worsening bilateral lung opacities. Completed Plaquenil therapy. Sputum culture ordered. Catheter tip reporting Staphylococcus epidermidis, Staphylococcus,haemolyticus, suspecting contamination/blood cultures negative. Inflammatory markers slowly improving. Objective - Vital Signs Vital signs: Vital Signs Temp 99.5 F 12/27/19 12:00 Pulse 121 H 12/27/19 15:00 Resp 30 H 12/27/19 15:00 BP 94/63 12/27/19 15:00 Pulse Ox 96 12/27/19 15:00 Intake & Output 12/26/19 12/27/19 12/27/19 18:59 06:59 18:59 Intake Total 6591.799 1080.816 938.378 Output Total 1100 640 630 Balance 229.882 402.816 308.378 Weight 131.5 kg 132.8 kg 132.8 kg Intake: IV 476 196 207 Potassium Chloride 20 meq 200 In Water For Injection 1 100ml.bag @ 50 mls/hr IVPB Q2H [facility] Rx#: [id number] Pressure Bag 36 36 27 Sodium Chloride 0.9% 1, 240 160 180 000 ml @ 20 mls/hr IV . Q24H [facility] Rx#:[id number] Intake, IV Titration 603.882 464.816 353.378 Amount Insulin Regular 100 unit 17.389 57.637 131.199 In Sodium Chloride 0.9% 100 ml @ Per Protocol IV .Q0M [facility] Rx#:[id number] Norepinephrine 8 mg In 0.664 50.467 Sodium Chloride 0.9% 250 ml @ 0.05 MCG/KG/MIN 12. 461 mls/hr IV .[id number] [facility] Rx#:[id number] Propofol 1,000 mg In 421.350 406.515 171.712 Empty Bag 1 bag @ Titrate IV .Q0M [facility] Rx#: [id number] fentaNYL (PF) 2,500 mcg 165.143 In Sodium Chloride 0.9% 200 ml @ 3 MCG/KG/HR 25. 17 mls/hr IV .[id number] [facility] Rx#:[id number] Tube Feeding 160 292 318 Other 90 90 60 Output: Urine 1100 640 430 Stool 200 Other: Voiding Method Indwelling Catheter Indwelling Catheter Indwelling Catheter # Bowel Movements 2 ABP, PAP, CO, CI - Last Documented Arterial Blood Pressure 103/54 - Exam PHYSICAL EXAM: VITAL SIGNS: As above GENERAL: intubated and sedated, endotracheal tube present, on mechanical ventilation HEENT: Cushingoid ,Conjunctivae normal. Pupils equal. NECK: No JVD. No thyroid enlargement. No LNs CARDIOVASCULAR: S1, S2 regular. No murmur RESPIRATION: Breath sounds diminished. Fine bibasilar crackles. ABDOMEN: Soft, obese, nontender. No guarding. no masses palpable. Bowel sounds heard. LEGS: No edema. no swelling, no cyanosis NERVOUS SYSTEM: Unable to assess patient sedated and on mechanical ventilation Skin: no rash Microbiology 12/22/19 23:45 Blood Blood Culture - Preliminary No Growth after 96 hours 12/21/19 17:05 Catheter Tip Catheter Tip Culture - Final Staphylococcus epidermidis Staphylococcus haemolyticus 12/19/19 00:00 Sputum Gram Stain - Final 12/19/19 00:00 Sputum Sputum Culture - Final 12/12/19 11:45 Blood Blood Culture - Final No Growth after 144 hours 12/12/19 12:40 Urine,Voided Urine Culture - Final - Labs CBC & Chem 7: 12/27/19 07:40 12/27/19 07:40 Labs: Abnormal Lab Results - Last 24 Hours (Table) 12/26/19 12/26/19 12/26/19 Range/Units 17:17 18:00 19:11 RBC (3.80-5.40) m/uL Hgb (11.4-16.0) gm/dL Hct (34.0-46.0) % RDW (11.5-15.5) % D-Dimer (<0.60) mg/L FEU ABG pO2 (83-108) mmHg ABG HCO3 (21-25) mmol/L ABG Total CO2 (19-24) mmol/L Sodium (137-145) mmol/L BUN (7-17) mg/dL Glucose (74-99) mg/dL POC Glucose (mg/dL) 198 H 194 H 208 H (75-99) mg/dL ALT (4-34) U/L Alkaline Phosphatase (38-126) U/L Lactate Dehydrogenase (313-618) U/L Total Protein (6.3-8.2) g/dL Albumin (3.5-5.0) g/dL 12/26/19 12/26/19 12/27/19 Range/Units 20:23 21:55 00:04 RBC (3.80-5.40) m/uL Hgb (11.4-16.0) gm/dL Hct (34.0-46.0) % RDW (11.5-15.5) % D-Dimer (<0.60) mg/L FEU ABG pO2 (83-108) mmHg ABG HCO3 (21-25) mmol/L ABG Total CO2 (19-24) mmol/L Sodium (137-145) mmol/L BUN (7-17) mg/dL Glucose (74-99) mg/dL POC Glucose (mg/dL) 190 H 193 H 169 H (75-99) mg/dL ALT (4-34) U/L Alkaline Phosphatase (38-126) U/L Lactate Dehydrogenase (313-618) U/L Total Protein (6.3-8.2) g/dL Albumin (3.5-5.0) g/dL 12/27/19 12/27/19 12/27/19 Range/Units 02:33 04:00 04:26 RBC (3.80-5.40) m/uL Hgb (11.4-16.0) gm/dL Hct (34.0-46.0) % RDW (11.5-15.5) % D-Dimer 1.15 H (<0.60) mg/L FEU ABG pO2 (83-108) mmHg ABG HCO3 (21-25) mmol/L ABG Total CO2 (19-24) mmol/L Sodium (137-145) mmol/L BUN (7-17) mg/dL Glucose (74-99) mg/dL POC Glucose (mg/dL) 204 H 199 H (75-99) mg/dL ALT (4-34) U/L Alkaline Phosphatase (38-126) U/L Lactate Dehydrogenase (313-618) U/L Total Protein (6.3-8.2) g/dL Albumin (3.5-5.0) g/dL 12/27/19 12/27/19 12/27/19 Range/Units 05:26 06:22 07:40 RBC 3.13 L (3.80-5.40) m/uL Hgb 8.3 L (11.4-16.0) gm/dL Hct 26.4 L (34.0-46.0) % RDW 16.9 H (11.5-15.5) % D-Dimer (<0.60) mg/L FEU ABG pO2 74 L (83-108) mmHg ABG HCO3 29 H (21-25) mmol/L ABG Total CO2 30 H (19-24) mmol/L Sodium (137-145) mmol/L BUN (7-17) mg/dL Glucose (74-99) mg/dL POC Glucose (mg/dL) 191 H (75-99) mg/dL ALT (4-34) U/L Alkaline Phosphatase (38-126) U/L Lactate Dehydrogenase (313-618) U/L Total Protein (6.3-8.2) g/dL Albumin (3.5-5.0) g/dL 12/27/19 12/27/19 12/27/19 Range/Units 07:40 07:40 07:46 RBC (3.80-5.40) m/uL Hgb (11.4-16.0) gm/dL Hct (34.0-46.0) % RDW (11.5-15.5) % D-Dimer 0.81 H (<0.60) mg/L FEU ABG pO2 (83-108) mmHg ABG HCO3 (21-25) mmol/L ABG Total CO2 (19-24) mmol/L Sodium 134 L (137-145) mmol/L BUN 25 H (7-17) mg/dL Glucose 202 H (74-99) mg/dL POC Glucose (mg/dL) 218 H (75-99) mg/dL ALT 67 H (4-34) U/L Alkaline Phosphatase 137 H (38-126) U/L Lactate Dehydrogenase 987 H (313-618) U/L Total Protein 5.0 L (6.3-8.2) g/dL Albumin 2.6 L (3.5-5.0) g/dL 12/27/19 12/27/19 12/27/19 Range/Units 10:06 11:59 12:52 RBC (3.80-5.40) m/uL Hgb (11.4-16.0) gm/dL Hct (34.0-46.0) % RDW (11.5-15.5) % D-Dimer (<0.60) mg/L FEU ABG pO2 (83-108) mmHg ABG HCO3 (21-25) mmol/L ABG Total CO2 (19-24) mmol/L Sodium (137-145) mmol/L BUN (7-17) mg/dL Glucose (74-99) mg/dL POC Glucose (mg/dL) 221 H 228 H 228 H (75-99) mg/dL ALT (4-34) U/L Alkaline Phosphatase (38-126) U/L Lactate Dehydrogenase (313-618) U/L Total Protein (6.3-8.2) g/dL Albumin (3.5-5.0) g/dL 12/27/19 12/27/19 12/27/19 Range/Units 14:02 14:57 15:57 RBC (3.80-5.40) m/uL Hgb (11.4-16.0) gm/dL Hct (34.0-46.0) % RDW (11.5-15.5) % D-Dimer (<0.60) mg/L FEU ABG pO2 (83-108) mmHg ABG HCO3 (21-25) mmol/L ABG Total CO2 (19-24) mmol/L Sodium (137-145) mmol/L BUN (7-17) mg/dL Glucose (74-99) mg/dL POC Glucose (mg/dL) 211 H 203 H 202 H (75-99) mg/dL ALT (4-34) U/L Alkaline Phosphatase (38-126) U/L Lactate Dehydrogenase (313-618) U/L Total Protein (6.3-8.2) g/dL Albumin (3.5-5.0) g/dL Microbiology - Last 24 Hours (Table) 12/22/19 23:45 Blood Culture - Preliminary Blood No Growth after 96 hours Assessment and Plan Assessment: -Acute COVID-19 multifocal pneumonia -Acute hypoxic and hypercapnic respiratory failure secondary to the above, ventilator dependent -Acute sepsis with septic shock secondary to #1 -Hypotension, status post pressor dependent, secondary to the above, currently resolved -Diabetes mellitus, type II -Myasthenia gravis, currently in remission, intolerant to [place], monthly treatments with IVIG. -History of multiple sclerosis -Morbid obesity, BMI 53.5 -Diabetes mellitus, uncontrolled, hyperglycemic on insulin drip -Gastroesophageal reflux disease -History of hypertension -Osteoarthritis -Anxiety -Former nicotine dependence -Glaucoma -Seizure disorder -Acute on chronic renal failure, stage III, baseline 1.1, improving -Chronic diastolic CHF -Anemia of chronic disease, possibly mildly acute secondary to sepsis. Plan: Continue on current medication regime , PPI, monitoring and symptomatic treatment. Prognosis guarded given multiple complex medical issues. Gen. surgery consulted for trach and PEG. Patient possibly might benefit from IVIG, as she has a history of routinely receiving monthly treatments-defer to wildland firefighter/ID. Prognosis guarded given multiple complex medical issues. The impression and plan of care has been dictated as directed. : I performed a history and examination of this patient, discussed the same with the dictator. I agree with the dictator's note ,documented as a scribe. Any additional findings or plans will be noted.
[2019-12-27 16:56] LABS: Glucose,Whole Blood 217 mg/dL (75-99)
[2019-12-27 16:59] LABS: Ferritin 63.7 ng/mL (10.0-291.0)
[2019-12-27] MEDS ORDERED: fentaNYL (PF) 2,500 MCG in SODIUM CHLORIDE 0.9% 200 ML IV SCH (17:00)
[2019-12-27 18:02] LABS: Glucose,Whole Blood 222 mg/dL (75-99)
[2019-12-27 19:01] LABS: Glucose,Whole Blood 224 mg/dL (75-99)
[2019-12-27] MEDS ORDERED: MIDAZOLAM 2 MG/2 ML VIAL IV STA (20:54)
[2019-12-27] MEDS ORDERED: SODIUM CHLORIDE 0.9% 1,000 ML IV ONE (20:55)
[2019-12-27] MEDS ORDERED: SODIUM CHLORIDE 0.9% 50 ML with VASOPRESSIN 20 UNIT IVPB SCH ×2 (21:00)
[2019-12-27] MEDS: NOREPINEPHRINE 8 MG in SODIUM CHLORIDE 0.9% 250 ML IV SCH ×3 (21:04)
[2019-12-27 21:12] LABS: ABG Base Excess -8.6 mmol/L; ABG HCO3 19 mmol/L (21-25); ABG Oxygen Saturation 95.5 % (94-97); ABG PCO2 47 mmHg (35-45); ABG PH 7.22 (7.35-7.45); ABG PO2 93 mmHg (83-108); ABG TCO2 21 mmol/L (19-24); Allen Test Performed? Yes
[2019-12-27 21:28] LABS: Glucose,Whole Blood 204 mg/dL (75-99)
[2019-12-27 21:42] LABS: Albumin 2.6 g/dL (3.5-5.0); Calcium 8.7 mg/dL (8.4-10.2); Potassium 5.5 mmol/L (3.5-5.1); Total Bilirubin 0.4 mg/dL (0.2-1.3); Total Protein 4.9 g/dL (6.3-8.2)
[2019-12-27 21:55] LABS: Anisocytosis Slight; HCT 22.9 % (34.0-46.0); HGB 7.3 gm/dL (11.4-16.0); Hypochromasia Marked; MCH 27.9 pg (25.0-35.0); MCV 87.4 fL (80.0-100.0); Poikilocytosis Slight; RBC 2.62 m/uL (3.80-5.40); RDW 17.2 % (11.5-15.5)
[2019-12-27 22:16] LABS: Platelet Count 640 k/uL (150-450)
[2019-12-27] MEDS ORDERED: MEROPENEM 2 GM in SODIUM CHLORIDE 0.9% 100 ML IVPB SCH (22:25)
[2019-12-27] MEDS ORDERED: VANCOMYCIN IV PER PHARMACY 1 EACH MISC MISCELLANE PRN (22:29)
[2019-12-27] MEDS ORDERED: SODIUM CHLORIDE 0.9% 2,000 ML IV ONE (22:29)
[2019-12-27 22:32] LABS: Band Neutrophils % 6 %; Eosinophils # (M) 0.36 k/uL (0-0.7); Lymphocytes # (M) 5.08 k/uL (1.0-4.8); Metamyelocytes # (M) 0.73 k/uL (0); Metamyelocytes % 2 %; Monocytes # (M) 0.73 k/uL (0-1.0); Myelocytes # (M) 2.18 k/uL (0); Myelocytes % 6 %; Neutrophils % (M) 72 %; Nucleated Red Blood Cells 9 /100 WBC (0-0); Polychromasia Present; Total Cells Counted 200; WBC 36.3 k/uL (3.8-10.6)
[2019-12-27] MEDS: SODIUM CHLORIDE 0.9% 1,000 ML IV SCH (22:45)
[2019-12-27] MEDS ORDERED: VANCOMYCIN 2,000 MG in SODIUM CHLORIDE 0.9% 500 ML 500 ML IVPB SCH (22:45)
[2019-12-27 23:05] LABS: Glucose,Whole Blood 131 mg/dL (75-99)
[2019-12-28] MEDS: METOCLOPRAMIDE 5 MG/ML 2 ML VIAL IVP SCH
[2019-12-28] MEDS: methylPREDNISolone SOD SUCCI 40 MG/ML 1 ML VIAL IV SCH
[2019-12-28 00:52] VITALS: RESP 26; TEMP 100
[2019-12-28 01:03] LABS: Glucose,Whole Blood 165 mg/dL (75-99)
[2019-12-28 02:07] VITALS: BP 144/89; PULSE 131
--- NOTE | 2019-12-28 03:09 | P.PN ---
Progress Note - Text Progress Note Date: 12/28/19 Code Blue Team Note Code josé activated at 2:26 AM. Arrived on the scene shortly after. The patient was undergoing CPR with PA on the monitor. Notified by the patient's RN that the patient was in V. fib and had received biphasic defibrillation at 200 J. Received a summary from the RN about the patient's hospital stay and reviewed the patient's labs. The patient continued to have PEA following defibrillation. She was given a total of 3 epinephrine IV push boluses. The patient did not regain her pulse and was pronounced at 2:40 am. Multiple attempts were made to contact the patient's family member (son) who did not answer his phone. Discussed the case with the primary team attending Dr. Ricketts. The qa specialist (Dr Boyd) was notified via phone by ODALIS Carmen.
== END 2019-12-28 02:40 | disposition expired | DRG 870 ==
LOC: EC 10:44 → 2SICU 14:23
PROVIDERS: ADMIT Family Medicine; ATTEND Family Medicine
PROC: 4A133J1 Monitoring of Arterial Pulse, Peripheral, Percutaneous Approach (ICD-10-PCS; principal; 2019-12-13)
PROC: 03HY32Z Insertion of Monitoring Device into Upper Artery, Percutaneous Approach (ICD-10-PCS; principal; 2019-12-13)
PROC: 5A1955Z Respiratory Ventilation, Greater than 96 Consecutive Hours (ICD-10-PCS; principal; 2019-12-13)
PROC: 4A133B1 Monitoring of Arterial Pressure, Peripheral, Percutaneous Approach (ICD-10-PCS; principal; 2019-12-13)
PROC: 4A133J1 Monitoring of Arterial Pulse, Peripheral, Percutaneous Approach (ICD-10-PCS; 2019-12-20)
PROC: 0BH17EZ Insertion of Endotracheal Airway into Trachea, Via Natural or Artificial Opening (ICD-10-PCS; 2019-12-20)
PROC: 03HY32Z Insertion of Monitoring Device into Upper Artery, Percutaneous Approach (ICD-10-PCS; 2019-12-20)
PROC: 4A133B1 Monitoring of Arterial Pressure, Peripheral, Percutaneous Approach (ICD-10-PCS; 2019-12-20)
PROC: 02HV33Z Insertion of Infusion Device into Superior Vena Cava, Percutaneous Approach (ICD-10-PCS; 2019-12-20)
PROC: 5A12012 Performance of Cardiac Output, Single, Manual (ICD-10-PCS; 2019-12-28)
DX: A41.89 Other specified sepsis (principal); U07.1 COVID-19; J12.89 Other viral pneumonia; J15.9 Unspecified bacterial pneumonia; J80 Acute respiratory distress syndrome; R65.21 Severe sepsis with septic shock; E87.2 Acidosis; I13.0 Hypertensive heart and chronic kidney disease with heart failure and stage 1 through stage 4 chronic kidney disease, or unspecified chronic kidney disease; I50.32 Chronic diastolic (congestive) heart failure; J44.0 Chronic obstructive pulmonary disease with (acute) lower respiratory infection; N17.9 Acute kidney failure, unspecified; Z68.43 Body mass index [BMI] 50.0-59.9, adult; D63.8 Anemia in other chronic diseases classified elsewhere; E11.22 Type 2 diabetes mellitus with diabetic chronic kidney disease; N18.3 Chronic kidney disease, stage 3 (moderate); E11.65 Type 2 diabetes mellitus with hyperglycemia; Z79.4 Long term (current) use of insulin; J84.89 Other specified interstitial pulmonary diseases; K21.9 Gastro-esophageal reflux disease without esophagitis; G47.33 Obstructive sleep apnea (adult) (pediatric); E66.01 Morbid (severe) obesity due to excess calories; E87.6 Hypokalemia; F17.200 Nicotine dependence, unspecified, uncomplicated; G70.00 Myasthenia gravis without (acute) exacerbation; G40.909 Epilepsy, unspecified, not intractable, without status epilepticus; I49.01 Ventricular fibrillation; F41.9 Anxiety disorder, unspecified; G35 Multiple sclerosis; Z99.89 Dependence on other enabling machines and devices; I46.9 Cardiac arrest, cause unspecified; H40.9 Unspecified glaucoma; M19.90 Unspecified osteoarthritis, unspecified site; Z79.01 Long term (current) use of anticoagulants; Z79.52 Long term (current) use of systemic steroids; Z79.82 Long term (current) use of aspirin; Z79.899 Other long term (current) drug therapy; Z80.8 Family history of malignant neoplasm of other organs or systems; Z82.49 Family history of ischemic heart disease and other diseases of the circulatory system; Z82.5 Family history of asthma and other chronic lower respiratory diseases; Z83.3 Family history of diabetes mellitus; Z90.710 Acquired absence of both cervix and uterus; Z86.14 Personal history of Methicillin resistant Staphylococcus aureus infection; Z90.49 Acquired absence of other specified parts of digestive tract; M10.9 Gout, unspecified; F40.240 Claustrophobia; Z82.0 Family history of epilepsy and other diseases of the nervous system; Z82.61 Family history of arthritis; Z88.8 Allergy status to other drugs, medicaments and biological substances
CPT/HCPCS: 36415; 36556; 36600; 71045; 80053; 81001; 82550; 82728; 82805; 83520; 83605; 83615; 83735; 83880; 84132; 84145; 84484; 85025; 85027; 85379; 85610; 85730; 86140; 87040; 87070; 87077; 87086; 87186; 87205; 87324; 87502; 87635; 92950; 93005; 94002; 94003; 94640; 96365; 96366; 96367; 99291; 99292